=== PATIENT | male | born 1950 | race Caucasian/White ===

== ENCOUNTER → 2020-03-18 08:20 | Outpatient (CLI) | payer MEDICARE, OTHER, SELFPAY ==
[2020-02-21 15:21] VITALS: BMI 23.6
--- NOTE | 2020-03-18 08:55 | CT_ITS ---
STUDY: CT CHEST WITHOUT CONTRAST REASON FOR EXAM: Male, 69 years old. LUNG CRACKLES. RADIATION DOSAGE (If Supplied By Facility): CTDIvol = ( 8.75 ) mGy, DLP = ( 353.07 ) mGycm TECHNIQUE: Transaxial imaging was performed without the administration of intravenous contrast material. Multiplanar coronal and sagittal images were reformatted. Individualized dose optimization techniques were used for this CT. COMPARISON: None. FINDINGS: Mild degree of emphysematous changes more prominent in the upper lobes. Minimal degree of linear scarring in the subpleural regions of the right upper lobe and left upper lobe anteriorly. Minimal linear scarring in the lower There is no demonstrated pleural abnormality. Normal heart and pericardium. Normal mediastinum. Normal hilar regions. Normal unenhanced pulmonary arteries. There is bovine origin of the left common carotid artery arising from the right common carotid artery. This is a normal variant. Normal osseous structures. Cysts are seen in the liver. The largest cyst measures 2.4 cm x 2.3 cm and is in the lateral aspect of the right lobe of the liver. Borderline splenomegaly. CT/Chest without Contrast IMPRESSION: Mild degree of emphysematous changes with mild scarring in the upper and lower lobes as described. Electronically Signed: Adrien Garrett, at 11:06 EDT , Service support ,
== END ==
PROVIDERS: PCP Internal Medicine; Referring Provider Internal Medicine; Visit Provider Internal Medicine
DX: R05 Cough (principal)
CPT/HCPCS: 71250

== ENCOUNTER → 2020-04-09 11:41 | Outpatient (CLI) | payer MEDICARE, OTHER, SELFPAY ==
[2020-02-21 15:21] VITALS: BMI 23.6
[2020-04-09 15:57] LABS: CRP < 2.90 mg/L (0.0-3.0); Rheumatoid Factor < 10.0 IU/mL (<15)
[2020-04-09 16:38] LABS: Erythrocyte Sedimentation Rate < 1 mm/hr (0-20)
[2020-04-11 15:02] LABS: ANTINUCLEAR ANTIBODIES DIRECT Positive (Negative)
== END ==
PROVIDERS: PCP Internal Medicine; Referring Provider Internal Medicine; Visit Provider Internal Medicine
DX: M79.641 Pain in right hand (principal)
CPT/HCPCS: 36415; 85652; 86038; 86140; 86431

== ENCOUNTER → 2022-02-13 | Outpatient (CLI) | payer MEDICARE, OTHER, SELFPAY ==
--- NOTE | 2022-02-13 08:33 | STRESSREP ---
Stress Test Report Date: 02-13-2022 Procedure: Exercise tolerance test/imaging study Indications: Chest pain; CAD; PVCs Consent: Per the patient Procedure: The patient exercised on a Salvador protocol for 9 minutes and 30 seconds completing Stage III and 30 seconds of Stage IV achieving a peak heart rate of 122 bpm (82% predicted maximal heart rate) with a peak blood pressure 158/56 mmHg and a peak MET capacity of 11 METs. The baseline ECG demonstrated sinus bradycardia; first-degree AV block. The peak exercise ECG demonstrated with no obvious ECG changes. There was an occasional PVC and a rare ventricular couplet during exercise and an occasional PVC during recovery. The functional capacity was considered good. There was chest tightness during exercise. The examination was discontinued secondary to chest tightness. Impression: 1. Technically adequate (percent predicted maximal heart rate greater than 85%) exercise tolerance test 2. Peak exercise ECG with no obvious ECG changes 3. There was an occasional PVC and a rare ventricular couplet during exercise and an occasional PVC during recovery 4. Nuclear images pending Myocardial perfusion imaging study: Technique: The patient was injected with 11.2 mCi of technetium 99m Cardiolite and subsequently rest SPECT Cardiolite nuclear imaging was obtained in the horizontal long, vertical long, and short axis views. The patient exercised on a Salvador protocol for 9 minutes and 30 seconds completing Stage III and 30 seconds of Stage IV achieving a peak heart rate of 122 bpm (82% predicted maximal heart rate) with a peak blood pressure 158/56 mmHg and a peak MET capacity of 11 METs. The patient was injected with 33.3 mCi of technetium 99m Cardiolite and subsequently stress SPECT Cardiolite nuclear imaging was obtained in the horizontal long, vertical long, and short axis views. A gated Cardiolite study at peak stress was obtained. Interpretation: Rest and stress SPECT Cardiolite nuclear imaging status post realignment, normalization, and attenuation correction, demonstrates the appearance of relative uniform tracer uptake and myocardial perfusion appearing within normal limits. There is end systolic thickening and brightening. The gated Cardiolite study demonstrates myocardial thickening and inward wall motion. The reported LVEF is 76%. Impression: 1. Rest and stress SPECT Cardiolite nuclear imaging demonstrate relative uniform tracer uptake and myocardial perfusion appearing within normal limits. 2. The gated Cardiolite study reports an LVEF of 76%. This note was generated with [employer] software. It may contain incorrect words, spelling, and punctuation that were not noted in checking the note before signing.
== END | disposition home or self-care (01) ==
LOC: CVS 06:10
PROVIDERS: PCP Internal Medicine; Referring Provider Internal Medicine Cardiovascular Disease; Visit Provider Internal Medicine Cardiovascular Disease
DX: I25.10 Atherosclerotic heart disease of native coronary artery without angina pectoris (principal); I20.8 Other forms of angina pectoris; M25.511 Pain in right shoulder; M25.521 Pain in right elbow
CPT/HCPCS: 78452; 93017; A9500; A4216

== ENCOUNTER 2022-02-25 07:36 | Outpatient (CLI) | payer MEDICARE, OTHER, SELFPAY ==
--- NOTE | 2022-02-25 07:38 | CT_ITS ---
STUDY: CT CHEST WITHOUT CONTRAST REASON FOR EXAM: Male, 71 years old. CHEST PAIN, CAD. OVER READ ONLY RADIATION DOSAGE (If Supplied By Facility): CTDIvol = ( 28.25 ) mGy, DLP = ( 1414.92 ) mGycm TECHNIQUE: Transaxial imaging was performed without the administration of intravenous contrast material. Individualized dose optimization techniques were used for this CT. COMPARISON: No relevant priors. FINDINGS: CHEST Mild degree of dependent atelectasis and/or scarring at the lung bases. Mild degree of emphysematous changes. There is no demonstrated pleural abnormality. Normal heart and pericardium. Normal mediastinum. Normal hilar regions. Normal unenhanced pulmonary arteries. Normal aorta arch and descending thoracic aorta. Normal osseous structures. There is a 3.2 cm x 2.3 cm cyst in the lateral aspect of the right lobe of the liver. CT/Limited Chest CT Cardiac Only IMPRESSION: Mild degree of dependent atelectasis and/or scarring at the lung bases. Hepatic cyst. Electronically Signed: Adrien Garrett MD at 9:53 EDT ,
[2022-02-25 08:00] VITALS: BP 105/68; PULSE 57; RESP 14; O2SAT 100; BMI 24.1
[2022-02-25 08:15] VITALS: BP 105/68; PULSE 57
[2022-02-25] MEDS: Nitroglycerin (INPATIENT USE) 0.4 MG TAB.SUBL SL (08:15)
[2022-02-25 08:20] VITALS: BP 97/62; PULSE 58; RESP 16; O2SAT 99
[2022-02-25 08:26] LABS: CREATININE FINGERSTICK < 0.9 mg/dL (0.70-1.30); EGFR FINGERSTICK > 60.0000 mL/min (>60)
--- NOTE | 2022-02-25 17:21 | CA.SCORE ---
Calcium Scoring Date of Study:: 02/25/22 Indications Indications: Chest pain Coronary Calcium Scoring: High-resolution Computed Tomographic imaging of the chest was performed on 02-25-2022, with particular attention paid to the coronary arteries. Images from the examination were analyzed for the presence and extent of coronary artery calcification , using coronary calcium quantification software. The patient tolerated the procedure well and there were no complications. The results of the coronary calcification analysis are provided below. Findings Coronary Artery Left Main (LM): 0 Left Anterior Descending (LAD): 0 Left Circumflex (LCX): 0 Right Coronary Artery (RCA): 0 Total Agatston Score: 0 Percentile Ranking: According to prepublished reference tables 0% of patients of the same gender and/or similar age had the same and/or lower scores. Calcium Scoring Interpretation: 0 No identifiable atherosclerotic plaque. Very low cardiovascular disease risk. <5% chance of presence coronary artery disease A Negative Examination 1-10 Minimal Plaque burden. Significant coronary artery disease very unlikely. 11-100 Mild plaque burden. Likely mild or minimal coronary atherosclerosis. 101-400 Moderate plaque burden Moderate non-obstructive coronary artery disease highly likely. Over 400 Extensive plaque burden. High likelihood of at least one significant coronary stenosis (>50% diameter) Calcium Score: 0 Negative Examination Conclusion: Continue cardiovascular risk factor evaluation and care as deemed appropriate. This note was generated using a voice recognition system and there may be incorrect words, spelling or punctuation that were not noted when reviewing the office note prior to saving.
--- NOTE | 2022-02-25 17:23 | CCTA.WCONT ---
CCTA w/Cont Coronary Arteries Date of Study:: 02/25/22 Chest pain Consent:: Per patient The patient underwent high-resolution CT imaging of the chest on 02-25-2022 with attention to the coronary arteries. The coronary arteries were analyzed for the presence and extent of coronary artery calcification as well as underlying atherosclerotic coronary artery disease. The patient tolerated the procedure well with no apparent complications. LEFT MAIN CORONARY ARTERY: The left main coronary artery is a large vessel giving rise to the left anterior descending and left circumflex coronary arteries. It appears to be patent and angiographically normal. LEFT ANTERIOR DESCENDING CORONARY ARTERY: The left anterior descending coronary is a large vessel which tapers to a smaller vessel as it courses to the LV apex. There is no angiographically significant appearing disease appreciated. An intramyocardial bridging segment cannot necessarily be excluded. LEFT CIRCUMFLEX CORONARY ARTERY: The left circumflex coronary artery appears to be a large dominant vessel which provides a left PDA system and the left obtuse marginal branching system. The left circumflex coronary artery system appears to be patent and angiographically normal. RIGHT CORONARY ARTERY: The right coronary artery appears to be a small nondominant system. It appears to be patent and angiographically normal. THORACIC AORTA: The thoracic aorta appears to be patent with no obvious atherosclerotic appearing disease. PULMONARY ARTERY: The main pulmonary artery and proximal portions of the right and left pulmonary artery appear to be patent with no obvious filling defect. LEFT ATRIUM/APPENDAGE: The left atrium/appendage appears to be patent with no obvious filling defect. MITRAL VALVE: The mitral valve appears to be a bileaflet structure. AORTIC VALVE: The aortic valve appears to be a trileaflet structure LEFT VENTRICLE: The left ventricle appears to be demonstrate grossly normal left ventricular size, wall motion, and systolic function. The reported LVEF is 66%. CORONARY CALCIUM SCORE: The coronary calcium score was reported as 0. A coronary calcium score of 0 is considered indicative of very low cardiovascular disease risk and less than 5% chance of the presence of underlying atherosclerotic coronary artery disease. This note was generated using a voice recognition system and there may be incorrect words, spelling or punctuation that were not noted when reviewing the office note prior to saving.
== END 2022-02-25 23:59 | disposition home or self-care (01) ==
LOC: CT 07:37
PROVIDERS: PCP Internal Medicine; Referring Provider Internal Medicine Cardiovascular Disease; Visit Provider Internal Medicine Cardiovascular Disease
DX: Z01.812 Encounter for preprocedural laboratory examination (principal); R07.9 Chest pain, unspecified; K76.89 Other specified diseases of liver; R91.8 Other nonspecific abnormal finding of lung field; I25.10 Atherosclerotic heart disease of native coronary artery without angina pectoris; R06.2 Wheezing
CPT/HCPCS: 75571; 75574; 76380; Q9967; A4216

== ENCOUNTER → 2024-04-14 | Outpatient (CLI) | payer MEDICARE, OTHER, SELFPAY ==
--- NOTE | 2024-04-14 13:24 | ECHOD_ITS ---
Reason For Study: ARRHYTHMIA Procedure This was a 2D Doppler, Color Flow transthoracic echocardiogram. Exam performed in department. Left Ventricle Normal LV size. Left ventricular systolic function is normal. The left ventricular ejection fraction is 65 %. Stage 1 diastolic dysfunction. No regional wall motion abnormalities noted. Right Ventricle Normal RV size. Normal systolic function. Atria The left atrium is mildly enlarged. Normal right atrium. Mitral Valve Normal mitral valve. Mild (1+) eccentric mitral valve insufficiency. Tricuspid Valve Normal tricuspid valve. Mild tricuspid valve insufficiency. Aortic Valve Trisinus/trileaflet aortic valve. Trivial aortic valve insufficiency. Pulmonic Valve Normal pulmonic valve. Great Vessels Normal aortic root. The pulmonary artery is normal size. Inferior vena cava collapse with respiration. Pericardium/Pleural No pericardial effusion. MMode/2D Measurements & Calculations LVIDd: 4.8 cm IVSd: 0.98 cm Ao root diam: 3.4 cm LVIDs: 2.7 cm LVPWd: 0.99 cm RVDd: 2.9 cm FS: 43.9 % LAV(MOD-bp): 62.8 ml LVAd ap4: 24.5 cm2 LVAd ap2: 18.0 cm2 LAV(MOD-bp) Indexed: 31.5 ml/m2 LVLd ap4: 7.0 cm LVLd ap2: 7.6 cm LAV(MOD-sp2): 61.3 ml EDV(MOD-sp4): 71.4 ml EDV(MOD-sp2): 37.0 ml LAV(MOD-sp4): 61.1 ml EDV(sp4-el): 73.2 ml EDV(sp2-el): 36.2 ml LVAs ap4: 12.7 cm2 LVAs ap2: 10.4 cm2 LVLs ap4: 5.8 cm LVLs ap2: 6.0 cm ESV(MOD-sp4): 24.5 ml ESV(MOD-sp2): 15.2 ml ESV(sp4-el): 23.4 ml ESV(sp2-el): 15.2 ml EF(MOD-sp4): 65.7 % EF(MOD-sp2): 59.0 % EF(sp4-el): 68.1 % SV(MOD-sp4): 46.9 ml SV(MOD-sp2): 21.9 ml SV(sp4-el): 49.8 ml LA dimension(2D): 4.1 cm LA A4 area: 21.3 cm2 RA A4 area: 22.6 cm2 TAPSE: 2.1 cm Time Measurements MV dec time: 0.27 sec Doppler Measurements & Calculations MV E max jonel: 83.4 cm/sec Lat Peak E' Jonel: 8.8 cm/sec Med Peak E' Jonel: 7.9 cm/sec MV A max jonel: 80.7 cm/sec E/E' lat: 9.5 E/E' med: 10.6 MV E/A: 1.0 MV V2 max: 85.7 cm/sec MV P1/2t max jonel: 82.1 cm/sec Ao V2 max: 107.9 cm/sec MV max P.9 mmHg MV P1/2t: 79.1 msec Ao max P.7 mmHg MV V2 mean: 55.2 cm/sec MV dec slope: 303.9 cm/sec2 Ao V2 mean: 77.2 cm/sec MV mean P.3 mmHg Ao mean P.6 mmHg MV V2 VTI: 32.5 cm MVA(P1/2t): 2.8 cm2 Ao V2 VTI: 26.3 cm AV (velocity ratio): 0.85 AI max jonel: 373.4 cm/sec LV V1 max: 94.1 cm/sec MR max jonel: 486.7 cm/sec AI max P.8 mmHg LV V1 max P.5 mmHg MR max P.7 mmHg AI dec slope: 149.4 cm/sec2 LV V1 mean P.7 mmHg AI P1/2t: 732.0 msec LV V1 mean: 60.4 cm/sec LV V1 VTI: 22.3 cm PA V2 max: 107.5 cm/sec TR max jonel: 189.9 cm/sec PA V2 mean: 68.3 cm/sec TR max P.4 mmHg PA V2 VTI: 24.3 cm ECHO/Echo Complete Interpretation Summary Normal LV size. Left ventricular systolic function is normal. The left ventricular ejection fraction is 65 %. The left atrium is mildly enlarged. Stage 1 diastolic dysfunction. Ordering Physician: Kenny Erazo Referring Physician: Lori Christensen Performed By: Valerie Cheng, RDCS, RVT
== END | disposition home or self-care (01) ==
LOC: CVS 13:22
PROVIDERS: PCP Internal Medicine; Referring Provider Internal Medicine Cardiovascular Disease; Visit Provider Internal Medicine Cardiovascular Disease
DX: I47.29 Other ventricular tachycardia (principal)
CPT/HCPCS: 93306

== ENCOUNTER → 2024-05-01 | Outpatient (CLI) | payer MEDICARE, OTHER, SELFPAY ==
--- NOTE | 2024-05-01 07:49 | MRI_ITS ---
STUDY: MRI BRAIN WITH AND WITHOUT CONTRAST REASON FOR EXAM: Male, 73 years old. Amnesia no head injury,,amnesia last spring for a few hours TECHNIQUE: Standardized multiplanar fat and water weighted pulse sequences were obtained. IV 15ml clariscan was administered for the contrast portion of the examination. COMPARISON: None. FINDINGS: There is mild cerebral atrophy with widening of the extra-axial spaces and ventricular dilatation. There are a limited number of small white matter hyperintensities, distributed throughout the deep white matter tracts of the cerebral hemispheres, consistent with mild chronic white matter ischemic changes. There is no evidence for recent intracranial ischemia or other cause of cytotoxic edema on diffusion weighted imaging (DWI). Normal bilateral frontal poles, and orbital frontal and gyrus recti of the frontal lobes. Normal bilateral temporal tips of the temporal lobes. There are no white matter shear injuries (diffuse axonal injuries). There are no parenchymal hemorrhages or hematomas. There are no findings to suggest prior closed head parenchymal injury of the brain. There are no demyelinating plagues of the supratentorial brain, brainstem or cerebellum. There are no findings suspicious for multiple sclerosis (MS). Normal bilateral basal ganglia. Normal thalami. There is no extra-axial fluid accumulation. Normal flow voids within the major intracranial circulation suggesting patency by spin echo criteria. Normal venous enhancement. There is no enhancing intra-axial or extra-axial abnormality. No extra-axial fluid collections are present. There are no abnormally enhancing lesions of the brain parenchyma. No abnormal thickening or enhancement meninges or dura is demonstrated. No skull lesions are present. Normal sella turcica, pituitary gland, infundibular stalk, optic chiasm and hypothalamus. Normal tectal plate and pineal gland. Normal midbrain, polo and medulla. Normal cerebellum. Normal basal cisterns. Normal bilateral temporal bones. Normal bilateral internal auditory canals. No demonstrated orbital abnormality, within the constraints of a routine brain study. Normal visualized paranasal sinuses. Normal calvarium and skull base. Normal visualized soft tissue structures. Normal visualized upper cervical spine. MRI/Brain W/WO Contrast IMPRESSION: Involutional changes of the brain, as described above. Electronically Signed: Ras Douglas MD at 12:01 EST ,
[2024-05-01 08:22] LABS: CREATININE FINGERSTICK < 1.0 mg/dL (0.70-1.30); EGFR FINGERSTICK > 60.0000 mL/min (>60)
== END | disposition home or self-care (01) ==
PROVIDERS: PCP Internal Medicine; Referring Provider Internal Medicine; Visit Provider Internal Medicine
DX: R41.3 Other amnesia (principal)
CPT/HCPCS: 70553; A9575

== ENCOUNTER 2025-02-10 08:22 | Emergency (ER) | payer MEDICARE, OTHER, SELFPAY ==
[2025-02-10 08:22] VITALS: BP 142/91; PULSE 59; RESP 18; TEMP 36.8; O2SAT 98; BMI 24.7
--- OUTSIDE RECORDS SUMMARY | 2025-02-10 08:57 | XMS RPT_ITS | CCD ---
Author Organization [facility] Care Team Providers Care Rent Collector Name Role Phone Ashish Samuels Unavailable Unavailable Ashish Samuels Unavailable Unavailable Nuris, Netta Unavailable Kevin Messina Unavailable PeabodyIII, Shahab P Unavailable Augusto Parmar Unavailable Gregg Brown Unavailable Manchak, Kimmie Unavailable Unavailable Slarb, Radha Unavailable Unavailable Messenger, Cookie Unavailable Unavailable Fast, Connie A Unavailable Unavailable Unavailable Fast, Connie A Attending Unavailable Fast, Connie A Referring Unavailable Fast, Connie A Consulting Unavailable Fast, Connie A Unavailable Kevin Messina Unavailable PeabodyIII, Shahab P Unavailable Gregg Brown Unavailable Augusto Parmar Unavailable Manchak, Kimmie Unavailable Unavailable Slarb, Radha Unavailable Unavailable Nuris, Netta Unavailable MessengerCookie Unavailable Unavailable Unavailable Unavailable IMTIAZ Shore Unavailable Unavailable Pete III, Shahab P Unavailable [phone] Messenger Cookie Unavailable Unavailable Manchak, Kimmie Unavailable Unavailable IMTIAZ Shore Unavailable Unavailable Gravius, Krista Unavailable Unavailable Unavailable Primary Care Provider Unavailabl e No, Physician Primary Care Provider Unavailabl e FAST, CONNIE JOSE EDUARDO Admitting Unavailable NO, PHYSICIAN Primary Care Unavailable FAST, CONNIE JOSE EDUARDO Referring Unavailable VLAD EAST Attending Unavailable NO, PHYSICIAN Primary Care Unavailable FAST, CONNIE JOSE EDUARDO Admitting Unavailable FAST, CONNIE JOSE EDUARDO Referring Unavailable ROSA BLUM Attending Unavailable NO, PHYSICIAN Primary Care Unavailable WILMA COOLEY Attending Unavailable FAST, CONNIE JOSE EDUARDO Referring Unavailable FAST, CONNIE JOSE EDUARDO Admitting Unavailable NO, PHYSICIAN Primary Care Unavailable FAST, CONNIE JOSE EDUARDO Referring Unavailable FAST, CONNIE JOSE EDUARDO Admitting Unavailable KEVIN CASTORENA Attending Unavailable NAVEEN MAYER Attending Unavailable FAST, CONNIE JOSE EDUARDO Referring Unavailable FAST, CONNIE JOSE EDUARDO Admitting Unavailable NO, PHYSICIAN Primary Care Unavailable NAVEEN MAYER Attending Unavailable NO, PHYSICIAN Primary Care Unavailable FAST, CONNIE JOSE EDUARDO Admitting Unavailable FAST, CONNIE JOSE EDUARDO Referring Unavailable Fast DO, Connie A Unavailable Dr. Kevin Messina Unavailable Shahab Al MD Unavailable Pete LOZOYA MD , Shahab Nix Unavailable Gregg Brown Unavailable Dr. Augusto Parmar Unavailable Manchak AIR INTELLIGENCE SPECIALIST, Kimmie Unavailable Unavailable Slarb STREET LIGHT REPAIRER, Radha Unavailable Unavailable Nataliia RN, Cookie Unavailable Unavailable Silviano STREET LIGHT REPAIRER, IMTIAZ Unavailable Unavailable Unavailable Unavailable Shahab Al MD Unavailable Pete LOZOYA MD , Shahab Nix Unavailable Nuris DO, Netta Unavailable Fast DO, Connie A Unavailable Fermin, Dr. Sandoval Primary Care Provider [phone] Dr. Michael Hdz Attending Provider Dr. Michael Hdz Referring Provider [phone] Dr. Michael Hdz Other Provider Fermin, Dr. Sandoval Referring Provider Unavailable Unavailable Fast, Connie Primary Care Unavailable Kacey, [place] Attending Unavailable Fast, Connie Primary Care Unavailable Kacey, [place] Referring Unavailable Kacey, Kenny Attending Unavailable Fast, Connie Referring Unavailable Fast, Connie Attending Unavailable Fast, Connie Primary Care Unavailable Fast, Connie Primary Care Unavailable Kacey, [place] Attending Unavailable Fast, Connie Referring Unavailable Allergies Allergy Classification Reported Allergen(s) Allergy Type Date of Onset Reaction(s) Facility NEGATED: Highlighted row has been ruled out! (1 source) allergy to substance [facility] Work Phone: NEGATED: Highlighted row has been ruled out! (1 source) drug allergy [facility] Work Phone: Medications Current Medications Medication Drug Class(es) Dates Sig (Normalized) Sig (Original) tamsulosin hydrochloride 0.4 mg oral capsule (20 sources) alpha-Adrenergic Adriana Start: 02-21-2020 take 0.4 mg by mouth once daily Tamsulosin Active 0.4 MG PO DAILY February 21, 2020 3:22pm Start: 02-20-2019 End: 02-21-2020 take 0.8 mg by mouth once daily Tamsulosin Discontinue d 0.8 MG PO DAILY February 20, 2019 12:00am February 21, 2020 3:22pm take 2 capsules by m outh once daily Tamsulosin HCl 0.4 MG Oral Capsule 2 per day (0.4 MG) Active Completed/Discontinued Medications Medication Drug Class(es) Dates Sig (Normalized) Sig (Original) acetaminophen 325 mg oral capsule (20 sources) Start: 06-18-2017 End: 04-04-2018 take 1 capsule by mouth every eight hours as needed Tylenol 325 MG Oral Capsule 1 (one) Capsule q8hrs prn for 0 days Quantity: 30 {Capsule} Refills: 0 Ordered: 04-Apr-2018 Cookie William RN Start : 18-Jun-2017 End : 04-Apr-2018 Inactive amLODIPine 5 mg oral tablet (20 sources) Dihydropyridine Calcium Channel Adriana Start: 07-12-2017 End: 02-19-2022 take 1 tablet by mouth once daily amLODIPine Besylate 5 MG Oral Tablet 1 (one) Tablet Tablet qd for 0 days Quantity: 30 {Tablet} Refills: 1 Ordered: 01-Dec-2019 Fast DO, Connie A Fast DO, Connie A Start : 01-Dec-2019 Active Start: 09-15-2010 End: 11-24-2016 take 1 tablet by mouth once daily Norvasc 5 MG Oral Tablet 1 Tablet qd for 360 days Quantity: 60 {Tablet} Refills: 3 Ordered: 24-Nov-2016 Radha Torres LPN Start : 20-Feb-2014 End : 24-Nov-2016 Discontinued amoxicillin 875 mg / clavulanate 125 mg oral tablet (20 sources) Penicillin-class Antibacterial Start: 05-09-2007 End: 11-24-2007 take 1 tablet by mouth twice daily AUGMENTIN, 875-125MG (Oral Tablet) 1 (one) Tablet Twice daily for 0 days Quantity: 20 {Tablet} Refills: 0 Ordered: 09-May-2007 Cookie William RN Start : 09-May-2007 End : 24-Nov-2007 Inactive ascorbic acid 100 mg chewable tablet (20 sources) End: 11-27-2013 take 1 tablet by mouth once daily VITAMIN C, 100MG (Oral Tablet Chewable) 1 QD for 0 days Refills: 0 Ordered: 27-Nov-2013 Jyoti Gutierrez LPN End : 27-Nov-2013 Inactive aspirin 81 mg delayed release oral tablet (20 sources) Nonsteroidal Anti-inflammatory Drug Start: 09-15-2010 take 1 tablet by mouth once daily ASPIRIN 81 MG TABS One tablet by mouth daily ASPIRIN [id number] Monica Mccord Start: 09-15-2010 take 1 tablet by [facility] once daily ASPIRIN ADULT LOW STRENGTH, 81MG (Oral Tablet Delayed Release) 1 (one) Tablet DR daily for 360 days Quantity: 30 {Tablet} Refills: 3 Ordered: 20-Feb-2014 TyeshaJo murillo Start : 20-Feb-2014 Active azithromycin 250 mg oral tablet (12 sources) Macrolide Antimicrobial Start: 07-14-2021 End: 04-06-2022 Azithromycin 250 MG Oral Tablet 2 (two) Tablet today then 1 qd for 4 days for 0 days Quantity: 6 {Tablet} Refills: 0 Ordered: 06-Apr-2022 Kimmie Gifford CMA Start : 14-Jul-2021 End : 06-Apr-2022 Inactive cephalexin 500 mg oral capsule (20 sources) Cephalosporin Antibacterial Start: 03-21-2019 End: 12-01-2019 take 1 capsule by mouth twice daily Cephalexin 500 MG Oral Capsule 1 (one) Capsule bid for 0 days Quantity: 14 {Capsule} Refills: 0 Ordered: 01-Dec-2019 Radha Torres LPN Start : 21-Mar-2019 End : 01-Dec-2019 Inactive ciprofloxacin 500 mg oral tablet (20 sources) Quinolone Antimicrobial Start: 05-05-2010 End: 08-04-2010 take 1 tablet by mouth twice daily CIPRO, 500MG (Oral Tablet) 1 Tablet bid for 0 days Quantity: 20 {Tablet} Refills: 0 Ordered: 04-Aug-2010 Cookie William RN Start : 05-May-2010 End : 04-Aug-2010 Inactive cyclobenzaprine hydrochloride 10 mg oral tablet (20 sources) Muscle Relaxant Start: 01-02-2013 End: 11-27-2013 take 1 tablet by mouth every eight hours as needed for muscle spasms FLEXERIL, 10MG (Oral Tablet) 1 Tablet Tablet q8hrs prn for muscle spasm relief for 0 days Quantity: 30 {Tablet} Refills: 0 Ordered: 02-Jan-2013 Jyoti Gutierrez LPN Start : 02-Jan-2013 End : 27-Nov-2013 Discontinued Comments: This order discontinued per [facility]. Comment on above: This order discontin ued per [facility]. enalapril maleate 2.5 mg oral tablet (20 sources) Angiotensin Converting Enzyme Inhibitor Start: 01-02-2013 End: 12-28-2013 take 1 tablet by mouth once daily ENALAPRIL MALEATE, 2.5MG (Oral Tablet) 1 Tablet Tablet daily for 360 days Refills: 0 Ordered: 28-Aug-2013 Emili Reece Start : 02-Jan-2013 End : 28-Dec-2013 Inactive famotidine 20 mg oral tablet (4 sources) Histamine-2 Receptor Antagonist Start: 02-28-2014 End: 08-29-2014 take 1 tablet by mouth once daily FAMOTIDINE 20 MG TABS One tablet by mouth daily FAMOTIDINE [id number] Michael Hdz MD finasteride 5 mg oral tablet (20 sources) 5-alpha Reductase Inhibitor Start: 02-20-2019 End: 02-21-2020 take 5 mg by mouth once daily Finasteride Discontinued 5 MG PO DAILY February 20, 2019 12:00am February 21, 2020 3:22pm meloxicam 15 mg oral tablet (20 sources) Nonsteroidal Anti-inflammatory Drug Start: 05-05-2021 End: 04-06-2022 take 1 tablet by mouth once daily at mealtime Meloxicam 15 MG Oral Tablet 1 (one) Tablet qd for 0 days Quantity: 30 {Tablet} Refills: 3 Ordered: 06-Apr-2022 Kimmie Gifford CMA Start : 05-May-2021 End : 06-Apr-2022 Inactive Comments: take with food Start: 11-27-2013 End: 02-12-2014 take 1 tablet by mouth once daily MELOXICAM, 7.5MG (Oral Tablet) 1 (one) Tablet daily for 0 days Quantity: 30 {Tablet} Refills: 0 Ordered: 12-Feb-2014 Jyoti Gutierrez LPN Start : 27-Nov-2013 End : 12-Feb-2014 Discontinued Comment on above: take with food methylPREDNISolone 4 mg oral tablet (20 sources) Corticosteroid Start: 2012 End: 2013 take 1 tablet by mouth at mealtime MEDROL (LAITH), 4MG (Oral Tablet) 1 Tablet Tablet TAD for 0 days Quantity: 1 {Package(s)} Refills: 0 Ordered: 27-Nov-2013 Jyoti Gutierrez LPN Start : 02-Jan-2013 End : 27-Nov-2013 Inactive Comments: take with food Comment on above: take with food metoprolol tartrate 25 mg oral tablet (4 sources) beta-Adrenergic Adriana Start: 2012 End: 2012 take 1 tablet by mouth twice daily METOPROLOL TARTRATE 25 MG TABS One tablet by mouth twice daily METOPROLOL TARTRATE [id number] Michael Hdz MD metroNIDAZOLE 500 mg oral tablet (20 sources) Nitroimidazole Antimicrobial Start: 2009 End: 2010 take 1 tablet by mouth three times daily FLAGYL, 500MG (Oral Tablet) 1 Tablet tid for 0 days Quantity: 30 {Tablet} Refills: 0 Ordered: 04-Aug-2010 Cookie William RN Start : 05-May-2010 End : 04-Aug-2010 Inactive nadolol 20 mg oral tablet (20 sources) beta-Adrenergic Adriana Start: 2012 End: 2016 take 1 tablet by mouth once daily Nadolol 20 MG Oral Tablet 1 Tablet Tablet daily for 0 days Quantity: 30 {Tablet} Refills: 0 Ordered: 24-Nov-2016 Radha Torres LPN Start : 02-Jan-2013 End : 24-Nov-2016 Discontinued nitroglycerin 0.4 mg sublingual tablet (20 sources) Nitrate Vasodilator Start: 2010 End: 2021 Nitroglycerin Discontinued 0.4 MG SL every 5 to 15 minutes February 19, 2022 10:08am February 19, 2022 10:43am predniSONE 10 mg oral tablet (12 sources) Start: 2022 End: 2022 predniSONE 10 mg oral tablet 1 (one) Tablet for 5 days prn itching for 10 days Quantity: 10 {Tablet} Refills: 0 Ordered: 18-Nov-2022 Start : 18-Nov-2022 End : 18-Nov-2022 Discontinued Start: 07-14-2021 End: 04-06-2022 predniSONE 10 MG Oral Tablet 3 (three) Tablet pills for 3 days 2 pills for 3 days 1 pill for 3 days with food for 0 days Quantity: 18 {Tablet} Refills: 0 Ordered: 06-Apr-2022 Kimmie Gifford CMA Start : 14-Jul-2021 End : 06-Apr-2022 Inactive propranolol hydrochloride 60 mg oral tablet (20 sources) beta-Adrenergic Adriana Start: 03-06-2020 take 1 tablet by mouth once daily Propranolol HCl 60 MG Oral Tablet 1 (one) Tablet qd for 0 days Quantity: 30 {Tablet} Refills: 0 Ordered: 06-Mar-2020 Diana Cisneros MD Start : 06-Mar-2020 Active Start: 07-12-2017 End: 02-19-2022 take 1 capsule by mouth once daily Propranolol (Inderal La) 60 mg capsule,extended release 24 hr Active 60 MG PO daily February 19, 2022 10:09am Start: 06-18-2016 take 1 capsule by mo [facility] once daily INDERAL LA 60 MG [id number] One capsule by mouth daily PROPRANOLOL HCL [id number] Michael Hdz MD rofecoxib 25 mg oral tablet (20 sources) End: 05-09-2007 take 1 tablet by mouth once daily as needed VIOXX, 25MG (Oral Tablet) 1 QD, PRN for 0 days Refills: 0 Ordered: 09-May-2007 Cookie William RN End : 09-May-2007 Inactive tadalafil 5 mg oral tablet (8 sources) Phosphodiesterase 5 Inhibitor Start: 04-05-2023 take 1 tablet by mouth once daily tadalafiL 5 mg oral tablet 1 (one) Tablet qd for 0 days Quantity: 30 {Tablet} Refills: 3 Ordered: 05-Apr-2023 Fast DO, Connie A Fast DO, Connie A Start : 05-Apr-2023 Active Start: 03-29-2023 take 1 tablet by zac th once daily tadalafiL 5 mg oral tablet 1 (one) Tablet qd for 0 days Quantity: 30 {Tablet} Refills: 3 Ordered: 29-Mar-2023 Fast DO, Connie A Fast DO, Connie A Start : 29-Mar-2023 Active Start: 04-06-2022 take 1 tablet by zac th once daily Tadalafil 5 MG Oral Tablet 1 (one) Tablet qd for 0 days Quantity: 30 {Tablet} Refills: 3 Ordered: 06-Apr-2022 Fast DO, Connie A Fast DO, Connie A Start : 06-Apr-2022 Active valACYclovir 1000 mg oral tablet (20 sources) Herpesvirus Nucleoside Analog DNA Polymerase Inhibitor, Herpes Simplex Virus Nucleoside Analog DNA Polymerase Inhibitor, Herpes Zoster Virus Nucleoside Analog DNA Polymerase Inhibitor Start: 08-04-2010 End: 08-11-2010 take 1 tablet by mouth three times daily VALTREX, 1GM (Oral Tablet) 1 Tablet tid for 7 days Quantity: 21 {Tablet} Refills: 0 Ordered: 04-Aug-2010 Netta Lawler DO Start : 04-Aug-2010 End : 11-Aug-2010 Inactive Problems Active Problems Problem Classification Problem Date Documented Da te Episodic/Chronic Abdominal hernia (20 sources) Left inguinal hernia ; Translations: [Left inguinal hernia] 12-01-2019 Episodic Abdominal pain (20 sources) Acute abdominal pain; Translations: [Abdominal pain, acute, right upper quadrant] Resolved: 6 04-03-2016 Episodic Administrative/social admission (1 source) Medical examinations/reports status; Translations: [Physical exam WITHOUT abnormal findings (Renamed from Encounter for routine adult health examination without abnormal findings)] 04-08-2018 Episodic Asthma (20 sources) Asthma; Translations: [Asthma] Resolved: 8 04-04-2018 Chronic Comment on above: as long as stable an d not able to give inhalers with nadolol, would have pt call prn and get prednisone worsening asthma Cardiac dysrhythmias (20 sources) Paroxysmal ventricular tachycardia; Translations: [Ventricular premature beats] Onset: 1 09-15-2012 Chronic Comment on above: had heart cath 2010 - had kink and will get these records - no stent also saw eps specialist - no defibrillator- just saw cardio december 2017 dr hdz just had stress test and follwoup with cardio- stable just saw cardio shira le Cardiac dysrhythmias (20 sources) Palpitations; Translations: [Palpitations] Resolved: 9 04-08-2018 Episodic Cardiac dysrhythmias (20 sources) Cardiac dysrhythmias Chronic obstructive pulmonary disease and bronchiectasis (20 sources) Chronic obstructive lung disease; Translations: [COPD (chronic obstructive pulmonary disease)] Resolved: 4 04-03-2016 Chronic Comment on above: discussed an inhaler use- at this point he doesnt feel needs but discussed sx to watch for Conditions associated with dizziness or vertigo (20 sources) Dizziness; Translations: [Dizziness and giddiness] Resolved: 9 05-13-2015 Episodic Comment on above: better Conduction disorders (20 sources) Conduction disorder of the heart; Translations: [Cardiac dysrhythmia] 04-08-2018 Chronic Comment on above: dr hdz Coronary atherosclerosis and other heart disease (20 sources) Coronary arteriosclerosis; Translations: [Coronary artery disease] Onset: 1 09-15-2010 Chronic Comment on above: chronic stable-jess nue present regimen Disorders of lipid metabolism (2 sources) Hyperlipidemia; Translations: [Hyperlipidemia, unspecified] Onset: 3 06-30-2012 Chronic Diverticulosis and diverticulitis (20 sources) Diverticulitis of gastrointestinal tract; Translations: [Diverticulitis] 04-08-2018 Chronic Esophageal disorders (20 sources) Gastroesophageal reflux disease; Translations: [GERD (gastroesophageal reflux disease)] 04-08-2018 Chronic Comment on above: no symptoms or dysph augustus chronic stable-jess nue present regimen Gastrointestinal hemorrhage (20 sources) Blood in stool; Translations: [Melena] Resolved: 7 04-04-2018 Episodic Comment on above: Anoscope performed b y Dr. Mikel Lawler-No internal inflammed/bleeding hemorrhoids. Headache; including migraine (20 sources) Headache; Translations: [Headache] Resolved: 1 03-06-2020 Episodic Comment on above: unusual sx check blo od flow better Hemorrhoids (20 sources) External hemorrhoids; Translations: [Hemorrhoids] Resolved: 9 04-08-2018 Episodic Hyperplasia of prostate (20 sources) Benign prostatic hypertrophy without outflow obstruction; Translations: [Benign prostatic hypertrophy with outflow obstruction] 04-08-2018 Chronic Comment on above: integrative approach wanted so will look up std process for mhim -- he wakes severasl times a nite he sees urologist in [place] so will followup there- try flomax at night for nighttime sx better with flomax a t night discussed how to use meds timing side effects and avoid with nitro Immunizations and screening for infectious disease (20 sources) Need for prophylactic vaccination and inoculation against influenza; Translations: [Raised antinuclear antibody] 04-12-2020 Episodic Comment on above: chronic stable-jess nue present regimen Neoplasms of unspecified nature or uncertain behavior (20 sources) Neoplasm of uncertain behavior of skin; Translations: [Neoplasm of uncertain behavior of skin] Resolved: 3 04-08-2018 Episodic Comment on above: no new lesions he martinez s followup with derm Nonspecific chest pain (20 sources) Chest pain, unspecified; Translations: [Precordial pain] Onset: 1 Resolved: 7 09-15-2010 Episodic Comment on above: with inspiration mid chest dull pain sees Dr. Hdz ? lung related to COPD vs otherdid not use his nitro Other and unspecified benign neoplasm (20 sources) Lipoma of other specified sites; Translations: [Lipoma (clinical)] Episodic Other and unspecified benign neoplasm (20 sources) Lipoma of back; Translations: [Lipoma of back] Resolved: 8 04-04-2018 Episodic Comment on above: has had for years, h e will check his insurance reg surgeon Other circulatory disease (20 sources) Electrocardiogram abnormal; Translations: [Abnormal result of cardiovascular function study, unspecified] Onset: 1 Resolved: 8 09-15-2010 Episodic Other connective tissue disease (20 sources) Pain in right hand; Translations: [Right hand pain] Resolved: 3 03-11-2021 Episodic Other ear and sense organ disorders (20 sources) Impacted cerumen; Translations: [Impacted cerumen] Resolved: 9 12-27-2018 Episodic Other gastrointestinal disorders (20 sources) Constipation; Translations: [Constipation] Resolved: 9 04-08-2018 Episodic Other hematologic conditions (20 sources) Patient encounter status; Translations: [Other specified abnormalities of plasma proteins] 04-01-2021 Episodic Other injuries and conditions due to external causes (20 sources) Muscle strain; Translations: [Pulled muscle] Resolved: 6 04-03-2016 Episodic Other lower respiratory disease (20 sources) Rib pain; Translations: [Rib pain on right side] Resolved: 8 04-04-2018 Episodic Comment on above: ? injury from crawli ng under a trailer Other lower respiratory disease (20 sources) Breathing painful; Translations: [Inspiratory pain] Resolved: 0 04-08-2018 Episodic Other lower respiratory disease (20 sources) Cough; Translations: [Cough] Resolved: 1 03-06-2020 Episodic Comment on above: likely need high res ct -has had chemical exposure at work Other male genital disorders (20 sources) Impotence; Translations: [Male erectile dysfunction, unspecified] 12-14-2018 Chronic Comment on above: hernandez - has followu p with urology -psa stable Other non-traumatic joint disorders (20 sources) Shoulder pain; Translations: [Right shoulder pain] Resolved: 9 12-27-2018 Episodic Other non-traumatic joint disorders (6 sources) Pain in left knee; Translations: [Pain in left knee] Onset: 1 Episodic Other non-traumatic joint disorders (20 sources) Joint pain; Translations: [Pain in unspecified joint (Renamed from Arthralgia)] 04-01-2021 Episodic Comment on above: joints in general be tter Other non-traumatic joint disorders (20 sources) Knee pain; Translations: [Pain in left knee] Episodic Comment on above: better with meloxica m he wants to monitor for now Other non-traumatic joint disorders (2 sources) Pain radiating to right shoulder; Translations: [Pain in right shoulder] Episodic Other non-traumatic joint disorders (2 sources) Pain in elbow; Translations: [Pain in right elbow] Episodic Other non-traumatic joint disorders (16 sources) Pain in right shoulder; Translations: [Right shoulder pain] Resolved: 9 03-24-2019 Episodic Other nutritional; endocrine; and metabolic disorders (20 sources) Overweight in adulthood with body mass index of 25 or more but less than 30; Translations: [BMI 25.0-25.9,adult] Resolved: 0 12-01-2019 Episodic Other skin disorders (20 sources) Sebaceous cyst; Translations: [Sebaceous cyst of skin] Episodic Other skin disorders (20 sources) Cyst of skin; Translations: [Cyst of skin] 03-11-2021 Episodic Residual codes; unclassified (20 sources) Memory impairment; Translations: [Memory impairment] 04-08-2018 Episodic Comment on above: declined rx - gave h d and diet educ of cognitive preservation he seems to be stabl e here willmmonitor Residual codes; unclassified (20 sources) Vaccination required; Translations: [Vaccine for owgehihwji-otcwpet-grf tussis with poliomyelitis] 04-04-2018 Episodic Residual codes; unclassified (20 sources) H/O Spinal surgery; Translations: [Laminectomy] 04-08-2018 Episodic Comment on above: 1981 Residual codes; unclassified (20 sources) Body mass index (BMI) 24.0-24.9, adult; Translations: [Body mass index 20-24 - normal] Resolved: 2 04-08-2018 Episodic Residual codes; unclassified (20 sources) Needs influenza immunization; Translations: [Need for prophylactic vaccination and inoculation against influenza] 04-08-2018 Episodic Residual codes; unclassified (20 sources) Non-smoker; Translations: [Nonsmoker] 04-01-2021 Episodic Residual codes; unclassified (1 source) Other amnesia; Translations: [Other amnesia] Onset: 4 Episodic Skin and subcutaneous tissue infections (20 sources) Paronychia of finger; Translations: [Paronychia, finger] 03-23-2019 Episodic Comment on above: soak in epsom Spondylosis; intervertebral disc disorders; other back problems (20 sources) Low back pain; Translations: [Backache] Resolved: 6 04-03-2016 Episodic Comment on above: Chronic Superficial injury; contusion (20 sources) Subungual hematoma, hand; Translations: [Subungual hematoma, fingernail] 03-23-2019 Episodic Comment on above: he dosnt feel it nee ds drained will monitor Syncope (6 sources) Syncope and collapse; Translations: [Syncope and collapse] Onset: 1 09-15-2010 Episodic Unclassified (9 sources) FH: Hypertension; Translations: [Body mass index (BMI) 24.0-24.9, adult] 03-13-2015 Episodic Comment on above: declined rx - gave h d and diet educ of cognitive preservation 1979 Unclassified (20 sources) Blood chemistry abnormal; Translations: [Thyroid hormone tests abnormal] Resolved: 3 04-03-2016 Episodic Comment on above: repeat normal will m onitor scope 2017- jab norm al - declined cologard at this time Unclassified (20 sources) BPH without urinary obstruction Unclassified (20 sources) lumps- Resolved: 9 04-03-2016 Comment on above: reassurance as no ch kayode in 5 years- if change call for bx Unclassified (20 sources) Unclassified (20 sources) Nonsmoker; Translations: [Non-smoker] 04-08-2018 Unclassified (20 sources) BMI 25.0-25.9,adult Unclassified (20 sources) Abnormal EKG(794.31) Unclassified (20 sources) SCREENING FOR CANCER OF THE PROSTATE (V76.44) Unclassified (20 sources) BPH without Urin. Obst (600.00) Unclassified (20 sources) NHVI WELLNESS EXAM 12-14-2018 Unclassified (20 sources) BPH with urinary obstruction Unclassified (20 sources) BMI 23.0-23.9, adult Unclassified (20 sources) Right hand pain Unclassified (20 sources) Abnormal TSH Unclassified (1 source) Other ventricular tachycardia; Translations: [Other ventricular tachycardia] Onset: 4 Viral infection (20 sources) Herpes zoster; Translations: [Shingles] Resolved: 6 04-03-2016 Episodic Past or Other Problems Problem Classification Problem Date Documented Da te Episodic/Chronic Asthma (20 sources) Asthma Gastrointestinal hemorrhage (20 sources) Blood-tinged feces; Translations: [Blood in stool] Resolved: 06-18-2017 04-04-2018 Comment on above: Anoscope performed b y Dr. Mikel Lawler-No internal inflammed/bleeding hemorrhoids. Influenza (20 sources) Influenza Other and unspecified benign neoplasm (20 sources) Lipoma (clinical); Translations: [Lipoma of other specified sites] Resolved: 04-03-2016 04-03-2016 Episodic Other connective tissue disease (10 sources) Pain in right hand; Translations: [Right hand pain] 03-06-2020 Other nutritional; endocrine; and metabolic disorders (20 sources) Body mass index 25-29 - overweight; Translations: [BMI 25.0-25.9,adult] Resolved: 12-01-2019 04-08-2018 Chronic Other nutritional; endocrine; and metabolic disorders (3 sources) Body mass index 25-29 - overweight; Translations: [BMI 25.0-25.9,adult] Resolved: 12-01-2019 12-01-2019 Episodic Other skin disorders (1 source) Epidermoid cyst of skin; Translations: [Sebaceous cyst] Resolved: 12-12-2008 04-03-2016 Episodic Comment on above: infected Other skin disorders (18 sources) Sebaceous cyst; Translations: [Sebaceous cyst of skin] Resolved: 12-12-2008 04-03-2016 Episodic Comment on above: infected Unclassified (20 sources) Body mass index (BMI) 24.0-24.9, adult Unclassified (20 sources) POISON JUDITH Resolved: 12-12-2008 04-03-2016 Unclassified (20 sources) Patient encounter status; Translations: [Encounter for screening for lipid disorder] 04-08-2018 Unclassified (20 sources) Screening status; Translations: [Screening for prostate cancer] 04-08-2018 Comment on above: scope 2017- jab norm al - declined cologard at this time Unclassified (20 sources) Unspecified Diagnosis 04-08-2018 Unclassified (20 sources) External hemorrhoid Unclassified (1 source) Requires vaccination; Translations: [Vaccine for jxrhltewfi-mswsnqe-u ertussis with poliomyelitis] 04-04-2018 Unclassified (20 sources) Suture removal Resolved: 12-12-2008 04-03-2016 Unclassified (20 sources) Physical exam WITHOUT abnormal findings (Renamed from Encounter for routine adult health examination without abnormal findings) Unclassified (20 sources) Encounter for screening for malignant neoplasm of colon (Renamed from Special screening for malignant neoplasms, colon) Unclassified (20 sources) Inspiratory pain Unclassified (20 sources) Pulled muscle Unclassified (20 sources) Abdominal Pain,RUQ(789.01) Unclassified (20 sources) PREVENTION OF TETANUS (V03.7) Unclassified (20 sources) Well Male Exam (V70.0) Unclassified (20 sources) Shingles (053.9) Unclassified (20 sources) Abnormal blood chemistry (790.6) Unclassified (20 sources) fatty lipoma Unclassified (20 sources) SYMPTOMS INVOLVING CARDIOVASCULAR SYSTEM; PALPITATIONS (785.1) Unclassified (20 sources) Encounter for annual general medical examination with abnormal findings in adult Unclassified (20 sources) Rib pain on right side Unclassified (20 sources) Non-smoker; Translations: [Nonsmoker] 04-08-2018 Unclassified (20 sources) Encounter for screening for lipid disorder Unclassified (20 sources) Screening for prostate cancer Unclassified (20 sources) Body mass index 20-24 - normal; Translations: [Body mass index (BMI) 24.0-24.9, adult] Resolved: 03-06-2020 12-27-2018 Unclassified (20 sources) Sebaceous cyst of skin; Translations: [Sebaceous cyst] Resolved: 12-12-2008 04-03-2016 Comment on above: infected Unclassified (20 sources) Right shoulder pain Unclassified (19 sources) Paronychia, finger Unclassified (19 sources) Subungual hematoma, fingernail Unclassified (20 sources) screen Resolved: 03-06-2020 12-01-2019 Unclassified (16 sources) BMI 24.0-24.9, adult Unclassified (12 sources) Elevated antinuclear antibody (MARLYN) level Unclassified (3 sources) Screening PSA (prostate specific antigen) Unclassified (3 sources) Need for pneumococcal vaccination Results Test Name Value Interpretation Reference Range Facility Brain W/WO Contraston 2023 Brain W/WO Contrast [facility] Imaging Services [address] [place] [address] Brain W/WO Contrast MR#: [id number] Acct: [id number] Name: ADRIAN TORY Rep #: [id number] : 1950 M 73 From: Ras allen MD PCP: Dr. Connie Wilson DO Status: REG CLI Study: Brain W/WO Contrast Date of Exam: 05/01/24 Exam# [id number] Ordering Dr: [place] [id number] STUDY: MRI BRAIN WITH AND WITHOUT CONTRAST REASON FOR EXAM: Male, 73 years old. Amnesia no head injury,,amnesia last spring for a few hours TECHNIQUE: Standardized multiplanar fat and water weighted pulse sequences were obtained. IV 15ml clariscan was administered for the contrast portion of the examination. COMPARISON: None. FINDINGS: There is mild cerebral atrophy with widening of the extra-axial spaces and ventricular dilatation. There are a limited number of small white matter hyperintensities, distributed throughout the deep white matter tracts of the cerebral hemispheres, consistent with mild chronic white matter ischemic changes. There is no evidence for recent intracranial ischemia or other cause of cytotoxic edema on diffusion weighted imaging (DWI). Normal bilateral frontal poles, and orbital frontal and gyrus recti of the frontal lobes. Normal bilateral temporal tips of the temporal lobes. There are no white matter shear injuries (diffuse axonal injuries). There are no parenchymal hemorrhages or hematomas. There are no findings to suggest prior closed head parenchymal injury of the brain. There are no demyelinating plagues of the supratentorial brain, brainstem or cerebellum. There are no findings suspicious for multiple sclerosis (MS). Normal bilateral basal ganglia. Normal thalami. There is no extra-axial fluid accumulation. Normal flow voids within the major intracranial circulation suggesting patency by spin echo criteria. Normal venous enhancement. There is no enhancing intra-axial or extra-axial abnormality. No extra-axial fluid collections are present. There are no abnormally enhancing lesions of the brain parenchyma. No abnormal thickening or enhancement meninges or dura is demonstrated. No skull lesions are present. Normal sella turcica, pituitary gland, infundibular stalk, optic chiasm and hypothalamus. Normal tectal plate and pineal gland. Normal midbrain, polo and medulla. Normal cerebellum. Normal basal cisterns. Normal bilateral temporal bones. Normal bilateral internal auditory canals. No demonstrated orbital abnormality, within the constraints of a routine brain study. Normal visualized paranasal sinuses. Normal calvarium and skull base. Normal visualized soft tissue structures. Normal visualized upper cervical spine. MRI/Brain W/WO Contrast IMPRESSION: Involutional changes of the brain, as described above. Electronically Signed: Ras Douglas MD at 12:01 EST Reading Location ID and State: [facility] / [place] , Service support , CC: Dr. Connie Wilson DO Rn Clinical Quality: Signed Normal [facility] CREATININE FINGERSTICKon CREATININE WB < 1.0 Normal 0.70-1.30 [facility] Comment on above: Performed By: #### L 9100.0200 #### [facility] [address] [place], [place], [address] EGFR WB > 60.0000 Normal >60 [facility] Comment on above: Performed By: #### L 9100.0200 #### [facility] [address] [place], [address] Echo Completeon 04-14-2024 Echo [facility] Cardiovascular Services [address] [place] [address] Echo Complete 04/14/24 1334 MR#: [id number] Acct: [id number] Name: ADRIAN TROY Rep #: [id number] : 1950 73 From: Kenny Erazo MD Attending Dr: Dr. Kenny Erazo MD Status: REG Gladis CHRISTOPHER Ordering Dr: Kenny Erazo MD Date: 04/14/24 Location: [facility] Sex: M C Admitted: Reason For Study: ARRHYTHMIA Procedure This was a 2D Doppler, Color Flow transthoracic echocardiogram. Exam performed in department. Left Ventricle Normal LV size. Left ventricular systolic function is normal. The left ventricular ejection fraction is 65 %. Stage 1 diastolic dysfunction. No regional wall motion abnormalities noted. Right Ventricle Normal RV size. Normal systolic function. Atria The left atrium is mildly enlarged. Normal right atrium. Mitral Valve Normal mitral valve. Mild (1+) eccentric mitral valve insufficiency. Tricuspid Valve Normal tricuspid valve. Mild tricuspid valve insufficiency. Aortic Valve Trisinus/trileaflet aortic valve. Trivial aortic valve insufficiency. Pulmonic Valve Normal pulmonic valve. Great Vessels Normal aortic root. The pulmonary artery is normal size. Inferior vena cava collapse with respiration. Pericardium/Pleural No pericardial effusion. MMode/2D Measurements Calculations LVIDd: 4.8 cm IVSd: 0.98 cm Ao root diam: 3.4 cm LVIDs: 2.7 cm LVPWd: 0.99 cm RVDd: 2.9 cm FS: 43.9 % LAV(MOD-bp): 62.8 ml LVAd ap4: 24.5 cm2 LVAd ap2: 18.0 cm2 LAV(MOD-bp) Indexed: 31.5 ml/m2 LVLd ap4: 7.0 cm LVLd ap2: 7.6 cm LAV(MOD-sp2): 61.3 ml EDV(MOD-sp4): 71.4 ml EDV(MOD-sp2): 37.0 ml LAV(MOD-sp4): 61.1 ml EDV(sp4-el): 73.2 ml EDV(sp2-el): 36.2 ml LVAs ap4: 12.7 cm2 LVAs ap2: 10.4 cm2 LVLs ap4: 5.8 cm LVLs ap2: 6.0 cm ESV(MOD-sp4): 24.5 ml ESV(MOD-sp2): 15.2 ml ESV(sp4-el): 23.4 ml ESV(sp2-el): 15.2 ml EF(MOD-sp4): 65.7 % EF(MOD-sp2): 59.0 % EF(sp4-el): 68.1 % SV(MOD-sp4): 46.9 ml SV(MOD-sp2): 21.9 ml SV(sp4-el): 49.8 ml LA dimension(2D): 4.1 cm LA A4 area: 21.3 cm2 RA A4 area: 22.6 cm2 TAPSE: 2.1 cm Time Measurements MV dec time: 0.27 sec Doppler Measurements Calculations MV E max ana maría: 83.4 cm/sec Lat Peak E' Ana María: 8.8 cm/sec Med Peak E' Ana María: 7.9 cm/sec MV A max ana maría: 80.7 cm/sec E/E' lat: 9.5 E/E' med: 10.6 MV E/A: 1.0 MV V2 max: 85.7 cm/sec MV P1/2t max ana maría: 82.1 cm/sec Ao V2 max: 107.9 cm/sec MV max P.9 mmHg MV P1/2t: 79.1 msec Ao max P.7 mmHg MV V2 mean: 55.2 cm/sec MV dec slope: 303.9 cm/sec2 Ao V2 mean: 77.2 cm/sec MV mean P.3 mmHg Ao mean P.6 mmHg MV V2 VTI: 32.5 cm MVA(P1/2t): 2.8 cm2 Ao V2 VTI: 26.3 cm AV (velocity ratio): 0.85 AI max ana maría: 373.4 cm/sec LV V1 max: 94.1 cm/sec MR max ana maría: 486.7 cm/sec AI max P.8 mmHg LV V1 max P.5 mmHg MR max P.7 mmHg AI dec slope: 149.4 cm/sec2 LV V1 mean P.7 mmHg AI P1/2t: 732.0 msec LV V1 mean: 60.4 cm/sec LV V1 VTI: 22.3 cm PA V2 max: 107.5 cm/sec TR max ana maría: 189.9 cm/sec PA V2 mean: 68.3 cm/sec TR max P.4 mmHg PA V2 VTI: 24.3 cm ECHO/Echo Complete Interpretation Summary Normal LV size. Left ventricular systolic function is normal. The left ventricular ejection fraction is 65 %. The left atrium is mildly enlarged. Stage 1 diastolic dysfunction. Ordering Physician: Kenny Erazo Referring Physician: Connie Wilson Performed By: Valerie Cheng, RDCS, RVT 04/17/241901 Date Kenny Erazo MD CC: Dr. Kenny Erazo MD; Dr. Connie Wilson DO Date Dictated: 04/14/24 1334 Date Transcribed: 04/17/241901 Rn Clinical Quality: Signed Normal [facility] Cardiology Visit Reporton Cardiology Visit Report [facility] [address] [place] [address]. [address] [place] [address] OFFICE VISIT Date of Service: 04/06/24 MR#: [id number] Acct: [id number] Name: ADRIAN TROY Rep #: [id number] : 1950 Provider: Dr. Kenny Erazo MD Age/Sex: 73/M [place] [facility] [place]: Signed HPI HPI History of Present Illness Details: This is a 73-year-old white male who presents today for outpatient cardiovascular follow-up visit. He has a history of premature ventricular complexes but no significant obstructive coronary disease. He did have a coronary CT angiogram performed in January 2022 demonstrating a calcium score of 0 and essentially no coronary disease. From a cardiac standpoint, the patient is doing well. He denies any palpitations, chest pain, pressure or heaviness. He denies SOB, Orthopnea, and PND. He does not have bleeding issues; no blood in urine, stool or nosebleeds. He denies any decrease in energy level, myalgias, or claudication. He does not have edema, or sudden weight gain. He denies dizziness, lightheadedness, syncopal or near syncopal episodes, and headaches. Intake Vital Signs 03/24/23 08:57 04/06/24 10:48 Height 5 ft 11 in 5 ft 11 in Weight: 175 lb BMI 24.4 BP 96/62 Blood Pressure Location Lt brachial Position Sitting Respiration 16 Pulse 60 Pulse Source Monitor Intake Visit Reasons: 1 Y FU/PREV PFM Pharmacy Helper Required: No Accompanied by: Self Is patient in pain?: No Allergies No Known Allergies Allergy (Verified 04/06/24 10:51) Medications ???Medication ???Instructions ???Recorded ???Confirmed ???Type aspirin 81 mg tablet,delayed 81 mg PO QDAY 07/12/17 04/06/24 History release tamsulosin 0.4 mg capsule 0.4 mg PO DAILY 02/21/20 04/06/24 History nitroglycerin 0.4 mg sublingual 0.4 mg sublingual Q5-15M PRN chest 03/24/23 04/06/24 Rx tablet pain #25 tabs propranolol 60 mg capsule,24 60 mg PO QDAY #90 caps 04/06/24 04/06/24 Rx hr,extended release (Inderal [place]) Have you fallen in the past year?: Yes [facility] Medical History GI bleed COPD (chronic obstructive pulmonary disease) BPH (benign prostatic hyperplasia) Atherosclerotic heart disease of [place] coronary artery without angina pectoris Premature ventricular contraction Syncope and collapse Nonspecific abnormal cardiovascular system function study Abnormal EKG Chest pain Hyperlipidemia Paroxysmal ventricular tachycardia Surgical History S/P left inguinal hernia repair History of appendectomy History of tonsillectomy History of back surgery Family History Mother CAD (coronary artery disease) Brother CAD (coronary artery disease) Hx of CABG Sister Hypertension Social History Smoking Status: Never smoker alcohol intake: current substance use type: does not use ROS Const Const: Negative for fatigue, weakness, headache(s), daytime sleepiness or difficulty sleeping ENT ENT: Negative for headache(s), dizziness or Nosebleed/epistaxis Cardio Chest Pain: No Palpitations: No Edema: None Resp Respiratory: Negative for SOB with activity, SOB at rest, SOB orthopnea SOB lying down or Cough GI GI: Negative nausea, vomiting or heartburn Neuro Neuro: Negative for dizziness, lightheadedness, near syncope, headache(s) or weakness Endo Endo: Negative for fatigue Cardiology Exam Const Appearance: cooperative, healthy appearing, comfortable, no acute distress, well developed and well groomed Nutritional Appearance: average body habitus Orientation: alert, awake and oriented x3 Head Head: normal to inspection, normocephalic and atraumatic Ears: hearing grossly normal bilaterally Nose: external nose normal Face and Sinus: face symmetric Eyes Eyelids: eyelids normal Conjunctivae: conjunctivae normal Pupils: PERRL EOM: EOM intact bilaterally Neck Neck: normal visual inspection and full ROM Carotids: normal carotid upstroke Chest Chest inspection: normal inspection of the chest, symmetric chest movement and normal respiratory effort Auscultation: Bilateral: Clear to Auscultation Cardio Palpation: normal PMI Rate: bradycardic Rhythm: regular rhythm Heart sounds: S1 normal and S2 normal GI GI: normal to inspection and soft Neuro General: patient alert and patient oriented x3 Skin Skin: no rashes or lesions noted Extremities Pulses: Normal: Right Radial Pulse and Left Radial Pulse Lower Extremity Edema: None: Bilateral Psych Psychological: normal affect Supplemental Info Supplemental Information Echocardiogram: 05-21-10 Interpretation Summary Left srinivas (more content not included)... Normal [facility] CBC, PLATELETS & MANUAL DIFF ([id number])Ordered By: [employer] on 03-18-2023 Basophils (Bld) [#/Vol] 0.1 10*3/uL Normal 0.0-0.2 [facility]; [facility] Work Phone: Comment on above: PATIENT WAS FASTINGP ERFORMED BY: LabcoJFK Johnson Rehabilitation InstituteYfcuoq5842 [facility] [id number] Basophils/100 WBC (Bld) 1 % Normal [facility]; [facility] Work Phone: Comment on above: PATIENT WAS FASTINGP ERFORMED BY: [facility] Aeiymo7595 [address] RoadDublin [place] [id number] Eosinophils (Bld) [#/Vol] 0.1 10*3/uL Normal 0.0-0.4 [facility]; [facility] Work Phone: Comment on above: PATIENT WAS FASTINGP ERFORMED BY: [facility] Hphpaz3045 [address] RoadDublin [place] [id number] Eosinophils/100 WBC (Bld) 2 % Normal [facility]; [facility] Work Phone: Comment on above: PATIENT WAS FASTINGP ERFORMED BY: [facility] Tbgckk3674 [address] RoadDublin [place] [id number] Erythrocyte distribution width (RBC) [Ratio] 12.3 % Normal 11.6-15.4 [facility]; [facility] Work Phone: Comment on above: PATIENT WAS FASTINGP ERFORMED BY: [facility] Opoete2214 Jenkins RoadAtrium Healthin [place] [id number] Hematocrit (Bld) [Volume fraction] 46.1 % Normal 37.5-51.0 [facility]; [facility] Work Phone: Comment on above: PATIENT WAS FASTINGP ERFORMED BY: [facility] Lbwnon4802 Jenkins Roadblin [place] [id number] Hemoglobin (Bld) [Mass/Vol] 15.8 g/dL Normal 13.0-17.7 [facility]; [facility] Work Phone: Comment on above: PATIENT WAS FASTINGP ERFORMED BY: [facility] Oftzwh9878 [address] RoadDublin [place] [id number] Immature granulocytes (Bld) [#/Vol] 0.0 10*3/uL Normal 0.0-0.1 [facility]; [facility] Work Phone: Comment on above: PATIENT WAS FASTINGP ERFORMED BY: [facility] Pgatfg2793 [address] RoadDublin [place] [id number] Immature granulocytes/100 WBC (Bld) 0 % Normal [facility]; [facility] Work Phone: Comment on above: PATIENT WAS FASTINGP ERFORMED BY: [facility] Appazh8134 [address] RoadDublin [place] [id number] Lymphocytes (Bld) [#/Vol] 0.8 10*3/uL Normal 0.7-3.1 [facility]; [facility] Work Phone: Comment on above: PATIENT WAS FASTINGP ERFORMED BY: [facility] Fynijy0756 [address] RoadDublin [place] [id number] Lymphocytes/100 WBC (Bld) 14 % Normal [facility]; [facility] Work Phone: Comment on above: PATIENT WAS FASTINGP ERFORMED BY: [facility] Gepkuu2723 [address] Roadblin [place] [id number] MCH (RBC) [Entitic mass] 32.4 pg Normal 26.6-33.0 [facility]; [facility] Work Phone: Comment on above: PATIENT WAS FASTINGP ERFORMED BY: [facility] Tkdhdu4920 [address] RoadDublin [place] [id number] MCHC (RBC) [Mass/Vol] 34.3 g/dL Normal 31.5-35.7 [facility]; [facility] Work Phone: Comment on above: PATIENT WAS FASTINGP ERFORMED BY: [facility] Pyeuen[address] Sturgis HospitalDublin [place] [id number] MCV (RBC) [Entitic vol] 95 fL Normal 79-97 [facility]; [facility] Work Phone: Comment on above: PATIENT WAS FASTINGP ERFORMED BY: [facility] Dihxyb8775 [address] RoadDublin [place] [id number] Monocytes (Bld) [#/Vol] 0.6 10*3/uL Normal 0.1-0.9 [facility]; [facility] Work Phone: Comment on above: PATIENT WAS FASTINGP ERFORMED BY: [facility] Dycxzy6220 [address] RoadDublin [place] [id number] Monocytes/100 WBC (Bld) 11 % Normal [facility]; [facility] Work Phone: Comment on above: PATIENT WAS FASTINGP ERFORMED BY: DEBBIE [facility] Olpzmw4590 [address] RoadDublin [place] [id number] Neutrophils (Bld) [#/Vol] 4.0 10*3/uL Normal 1.4-7.0 [facility]; [facility] Work Phone: Comment on above: PATIENT WAS FASTINGP ERFORMED BY: DEBBIE [facility] Yfxygd6742 [address] RoadDublin [place] [id number] Neutrophils/100 WBC (Bld) 72 % Normal [facility]; [facility] Work Phone: Comment on above: PATIENT WAS FASTINGP ERFORMED BY: DEBBIE [facility] Rkdswf5313 [address] RoadDublin [place] [id number] Platelets (Bld) [#/Vol] 207 10*3/uL Normal 150-450 [facility]; [facility] Work Phone: Comment on above: PATIENT WAS FASTINGP ERFORMED BY: DEBBIE [facility] Bhrlih5720 [address] RoadDublin [place] [id number] RBC (Bld) [#/Vol] 4.87 10*6/uL Normal 4.14-5.80 [facility] Internal [facility]; [facility] Work Phone: Comment on above: PATIENT WAS FASTINGP ERFORMED BY: DEBBIE [facility] Iodzqj6467 [address] RoadDublin [place] [id number] WBC (Bld) [#/Vol] 5.5 10*3/uL Normal 3.4-10.8 [facility]; [facility] Work Phone: Comment on above: PATIENT WAS FASTINGP ERFORMED BY: DEBBIE [facility] Ssctgj3377 [address] RoadDublin [place] [id number] METABOLIC PANEL, COMPREHENSI VE ([id number])Ordered By: [employer] on 03-18-2023 Albumin [Mass/Vol] 4.7 g/dL Normal 3.8-4.8 [facility]; [facility] Work Phone: Comment on above: PATIENT WAS FASTINGP ERFORMED BY: DEBBIE [facility] Soaeht8560 [address] RoadDublin [place] [id number] Albumin/Globulin [Mass ratio] 2.5 {ratio} Abnormal 1.2-2.2 [facility]; [facility] Work Phone: Comment on above: PATIENT WAS FASTINGP ERFORMED BY: DEBBIE [facility] Pjnsli4076 [address] RoadDublin [place] [id number] ALP [Catalytic activity/Vol] 87 U/L Normal 44-121 [facility]; [facility] Work Phone: Comment on above: PATIENT WAS FASTINGP ERFORMED BY: DEBBIE [facility] Zedfdg7080 [address] RoadDublin [place] [id number] ALT [Catalytic activity/Vol] 15 U/L Normal 0-44 [facility]; [facility] Work Phone: Comment on above: PATIENT WAS FASTINGP ERFORMED BY: DEBBIE [facility] Dpsuug2985 [address] RoadDublin [place] [id number] AST [Catalytic activity/Vol] 19 U/L Normal 0-40 [facility]; [facility] Work Phone: Comment on above: PATIENT WAS FASTINGP ERFORMED BY: DEBBIE Aparicio Iunwei2892 [address] Roadblin [place] [id number] Bilirubin [Mass/Vol] 0.9 mg/dL Normal 0.0-1.2 [facility] rehensive Internal Medicine; [facility] Work Phone: Comment on above: PATIENT WAS FASTINGP ERFORMED BY: DEBBIE [facility] Achxhs3175 [address] RoadDublin [place] [id number] Calcium [Mass/Vol] 9.9 mg/dL Normal 8.6-10.2 [facility] Internal [facility]; [facility] Work Phone: Comment on above: PATIENT WAS FASTINGP ERFORMED BY: DEBBIE [facility] Xjpdnw6613 [address] RoadDublin [place] [id number] Chloride [Moles/Vol] 99 mmol/L Normal 96-106 Comp rehensive [facility] Medicine; [facility] Work Phone: Comment on above: PATIENT WAS FASTINGP ERFORMED BY: CB [facility] [id number] [address]Dublin [place] [id number] CO2 [Moles/Vol] 29 mmol/L Normal 20-29 [facility]; [facility] Work Phone: Comment on above: PATIENT WAS FASTINGP ERFORMED BY: CB [facility] Epzvbw4636 [address] RoadDublin [place] [id number] Creatinine [Mass/Vol] 1.17 mg/dL Normal 0.76-1.27 [facility]; [facility] Work Phone: Comment on above: PATIENT WAS FASTINGP ERFORMED BY: [facility] Avscbt0135 [address] RoadDublin [place] [id number] GFR/1.73 sq M.predicted among non-blacks MDRD (S/P/Bld) [Vol rate/Area] 66 mL/min/{1.73_m2} Normal Comprehensiv e Internal [facility]; [facility] Work Phone: Comment on above: PATIENT WAS FASTINGP ERFORMED BY: [facility] Cfhmcp4572 Jenkins RoadDublin [place] [id number] Globulin (S) [Mass/Vol] 1.9 g/dL Normal 1.5-4.5 [facility]; [facility] Work Phone: Comment on above: PATIENT WAS FASTINGP ERFORMED BY: CB [facility] Jnhpeq7665 Jenkins RoadDublin [place] [id number] Glucose [Mass/Vol] 95 mg/dL Normal 70-99 [facility]; [facility] Work Phone: Comment on above: PATIENT WAS FASTINGP ERFORMED BY: CB [facility] Kuvszv4496 [address] RoadDublin [place] [id number] Potassium [Moles/Vol] 5.1 mmol/L Normal 3.5-5.2 [facility]; [facility] Work Phone: Comment on above: PATIENT WAS FASTINGP ERFORMED BY: CB [facility] Ldjfeb2011 [address] RoadDublin [place] [id number] Protein [Mass/Vol] 6.6 g/dL Normal 6.0-8.5 Compre hensive [facility] Medicine; [facility] Work Phone: Comment on above: PATIENT WAS FASTINGP ERFORMED BY: DEBBIE Labcojean pierre BradshawXydsie9140 [address] RoadDublin [place] [id number] Sodium [Moles/Vol] 137 mmol/L Normal 134-144 [facility]; [facility] Work Phone: Comment on above: PATIENT WAS FASTINGP ERFORMED BY: DEBBIE [facility] Bslzek3867 Jenkins RoadAtrium Healthin [place] [id number] Urea nitrogen [Mass/Vol] 21 mg/dL Normal 8-27 [facility]; [facility] Work Phone: Comment on above: PATIENT WAS FASTINGP ERFORMED BY: DEBBIE Labpiotr BradshawKbfdsi3718 [address] Roadblin [place] [id number] Urea nitrogen/Creatinine [Mass ratio] 18 mg/mg Normal 10-24 [facility]; [facility] Work Phone: Comment on above: PATIENT WAS FASTINGP ERFORMED BY: DEBBIE [facility] Vbzygk0037 Jenkins RoadAtrium Healthin [place] [id number] MARLYN (ANTINUCLEAR ANTIBODY) ( [id number])Ordered By: [employer] on 04-06-2022 Nuclear Ab Ql (S) Positive Abnormal Compreh ensive [facility] Medicine; [facility] Work Phone: Comment on above: PATIENT NOT FASTINGP ERFORMED BY: DEBBIE [facility] Ceepyc8084 [address] [facility]in [place] [id number] C-REACTIVE PROTEIN ([id number])Or dered By: [employer] on 04-06-2022 CRP [Mass/Vol] 2 mg/L Normal 0-10 Comprehens vane [facility] Medicine; [facility] Work Phone: Comment on above: PATIENT NOT FASTINGP ERFORMED BY: DEBBIE [facility] Bfowac57[address] [facility] [place] [id number] IMMUNOFIXATION, SERUM ([id number] )Ordered By: [employer] on 04-06-2022 IgA [Mass/Vol] 85 mg/dL Normal 61-437 Comprehens vane [facility]; [facility] Work Phone: Comment on above: PATIENT NOT FASTINGP ERFORMED BY: DEBBIE [facility] Qyxefo8403 [address] KivraAtrium Healthin [place] [id number] IgG [Mass/Vol] 900 mg/dL Normal 603-1613 Comprehens vane [facility]; [facility] Work Phone: Comment on above: PATIENT NOT FASTINGP ERFORMED BY: [facility] Cgyhvg7759 [address] [facility] [id number] IgM [Mass/Vol] 77 mg/dL Normal 15-143 Comprehens vane [facility] Medicine; [facility] Work Phone: Comment on above: PATIENT NOT FASTINGP ERFORMED BY: DEBBIE [facility] Ekfafv6948 [address] [facility] [id number] Protein Fractions [Interp] UPEIP Normal [facility]; [facility] Work Phone: Comment on above: No monoclonality det ected. PATIENT NOT FASTINGP ERFORMED BY: DEBBIE [facility] Gtmsiv5824 [address] [facility] [id number] SED RATE ERYTHROCYTE ([id number]) Ordered By: [employer] on 04-06-2022 ESR (Bld) [Velocity] 2 mm/h Normal 0-30 [facility] Internal Medicine; [facility] Work Phone: Comment on above: PATIENT NOT FASTINGP ERFORMED BY: DEBBIE [facility] Ytzhmi8753 [facility] [id number] Serum Free Light Chains ([id number] 83)Ordered By: [employer] on 04-06-2022 Immunoglobulin light chains.kappa.free (S) [Mass/Vol] 22.7 mg/L Abnormal 3.3-19.4 [facility]; [facility] Work Phone: Comment on above: PATIENT NOT FASTINGP ERFORMED BY: [facility] Boutlp5687 [address] [facility] [id number] Immunoglobulin light chains.lambda.free [Mass/Vol] 11.1 mg/L Normal 5.7-26.3 [facility]; [facility] Work Phone: Comment on above: PATIENT NOT FASTINGP ERFORMED BY: [place] Bmcmtc2217 [address] KivraCone [facility] [id number] Serum Free Light Chains (29704) 2.05 1 Abnormal 0.26-1.65 [facility]; [facility] Work Phone: Comment on above: PATIENT NOT FASTINGP ERFORMED BY: [place] Nctixx4420 [address] [facility] [id number] dsDNA ANTIBODY by IFA, Crith idia Luciliae, with Reflex to Titer ([id number])Ordered By: [employer] on 04-06-2022 dsDNA ANTIBODY by IFA, Crithidia Luciliae, with Reflex to Titer (12090) Negative Normal [facility]; [facility] Work Phone: Comment on above: PATIENT NOT FASTINGP ERFORMED BY: Battlepro6370 [address] KivraCone Health [facility] C[facility] Hospital [id number] urine immunofixation ([id number]) Ordered By: [employer] on 04-06-2022 Interpretation Immunofixation (U) [Interp] UPEIP Normal [facility]; [facility] Work Phone: Comment on above: No monoclonality det ected. PATIENT NOT FASTINGP ERFORMED BY: Battlepro6370 [facility] [id number] PSA (PROSTATE SPECIFIC ANTIG EN) ([id number])Ordered By: [employer] on 03-31-2022 Prostate specific Ag [Mass/Vol] 3.5 ng/mL Normal 0.0-4.0 [facility]; [facility] Work Phone: Comment on above: [employer] ECLIA methodol ogy. .According to the [place] [employer], Serum PSA shoulddecrease and remain at undetectable levels after radicalprostatectomy. The AUA defines biochemical recurrence as an initialPSA value 0.2 ng/mL or greater followed by a subsequent confirmatoryPSA value 0.2 ng/mL or greater.Values obtained with different assay methods or kits cannot be usedinterchangeably. Results cannot be interpreted as absolute evidenceof the presence or absence of malignant disease. PATIENT NOT FASTINGP ERFORMED BY: Battlepro6370 [facility] [id number] Information: NURSE DRAW Basophil percentageon 2021 Basophil percentage < 0.9 mg/dL 0.70-1.30 [facility] Work Phone: No Panel Informationon 02-25 Bedside Estimated GFR (eGFR) > 60.0000 mL/min >60 [facility] Work Phone: CBC, PLATELETS & MANUAL DIFF ([id number])Ordered By: [employer] on 03-11-2021 Basophils (Bld) [#/Vol] 0.1 10*3/uL Normal 0.0-0.2 [facility]; [facility] Work Phone: Comment on above: PATIENT WAS FASTINGP ERFORMED BY: DEBBIE LabDiavibeJFK Johnson Rehabilitation InstituteRgcgaf7294 [facility] [id number] Basophils/100 WBC (Bld) 1 % Normal [facility]; [facility] Work Phone: Comment on above: PATIENT WAS FASTINGP ERFORMED BY: DEBBIE LabDiavibe Uwdpgl1945 [facility] [id number] Eosinophils (Bld) [#/Vol] 0.1 10*3/uL Normal 0.0-0.4 [facility]; [facility] Work Phone: Comment on above: PATIENT WAS FASTINGP ERFORMED BY: DEBBIE LabDiaviberp Fwonzc2754 [facility] [id number] Eosinophils/100 WBC (Bld) 2 % Normal [facility]; [facility] Work Phone: Comment on above: PATIENT WAS FASTINGP ERFORMED BY: DEBBIE LabDiavibe Qlvwno0270 [facility] [id number] Erythrocyte distribution width (RBC) [Ratio] 12.0 % Normal 11.6-15.4 [facility]; [facility] Work Phone: Comment on above: PATIENT WAS FASTINGP ERFORMED BY: LabCoJFK Johnson Rehabilitation InstituteYilhsr2905 [facility] [id number] Hematocrit (Bld) [Volume fraction] 45.5 % Normal 37.5-51.0 [facility]; [facility] Work Phone: Comment on above: PATIENT WAS FASTINGP ERFORMED BY: DEBBIE LabCojean pierre EdenKebobu5196 [address] [facility]in [place] [id number] Hemoglobin (Bld) [Mass/Vol] 15.6 g/dL Normal 13.0-17.7 [facility]; [facility] Work Phone: Comment on above: PATIENT WAS FASTINGP ERFORMED BY: [facility] Wgvxhq0934 Jenkins RoadDublin [place] [id number] Immature granulocytes (Bld) [#/Vol] 0.0 10*3/uL Normal 0.0-0.1 [facility]; [facility] Work Phone: Comment on above: PATIENT WAS FASTINGP ERFORMED BY: [facility] Wtinmq3697 Jenkins RoadCone Health [facility] C[facility] [id number] Immature granulocytes/100 WBC (Bld) 0 % Normal [facility]; [facility] Work Phone: Comment on above: PATIENT WAS FASTINGP ERFORMED BY: [facility] Tfnitb8205 [address] [facility] [id number] Lymphocytes (Bld) [#/Vol] 0.7 10*3/uL Normal 0.7-3.1 [facility]; [facility] Work Phone: Comment on above: PATIENT WAS FASTINGP ERFORMED BY: [facility] Iguyiy5922 [address] [facility]in [place] [id number] Lymphocytes/100 WBC (Bld) 14 % Normal [facility]; [facility] Work Phone: Comment on above: PATIENT WAS FASTINGP ERFORMED BY: [facility] Ipyqmt8299 Jenkins RoadDublin [place] [id number] MCH (RBC) [Entitic mass] 32.4 pg Normal 26.6-33.0 [facility]; [facility] Work Phone: Comment on above: PATIENT WAS FASTINGP ERFORMED BY: [facility] Flqfxy5358 Jenkins RoadDublin [place] [id number] MCHC (RBC) [Mass/Vol] 34.3 g/dL Normal 31.5-35.7 [facility]; [facility] Work Phone: Comment on above: PATIENT WAS FASTINGP ERFORMED BY: CB [facility] Ldzimd0145 Jenkins RoadDublin [place] [id number] MCV (RBC) [Entitic vol] 95 fL Normal 79-97 [facility]; [facility] Work Phone: Comment on above: PATIENT WAS FASTINGP ERFORMED BY: CB [facility] Pfuven6962 [address] RoadDublin [place] [id number] Monocytes (Bld) [#/Vol] 0.5 10*3/uL Normal 0.1-0.9 [facility]; [facility] Work Phone: Comment on above: PATIENT WAS FASTINGP ERFORMED BY: DEBBIE [facility] Bdtkch3240 [address] RoadDublin [place] [id number] Monocytes/100 WBC (Bld) 9 % Normal [facility]; [facility] Work Phone: Comment on above: PATIENT WAS FASTINGP ERFORMED BY: CB [facility] Ijzazv8709 [address] RoadDublin [place] [id number] Neutrophils (Bld) [#/Vol] 3.8 10*3/uL Normal 1.4-7.0 [facility]; [facility] Work Phone: Comment on above: PATIENT WAS FASTINGP ERFORMED BY: CB [facility] Xnvghc1505 [address] RoadDublin [place] [id number] Neutrophils/100 WBC (Bld) 74 % Normal [facility]; [facility] Work Phone: Comment on above: PATIENT WAS FASTINGP ERFORMED BY: CB [facility] Ntoqbe1190 [address] RoadDublin [place] [id number] Platelets (Bld) [#/Vol] 227 10*3/uL Normal 150-450 [facility]; [facility] Work Phone: Comment on above: PATIENT WAS FASTINGP ERFORMED BY: CB [facility] Dgmbht1164 [address] RoadDublin [place] [id number] RBC (Bld) [#/Vol] 4.81 10*6/uL Normal 4.14-5.80 [facility] Internal Medicine; [facility] Work Phone: Comment on above: PATIENT WAS FASTINGP ERFORMED BY: DEBBIE [facility] Rhedgl4024 [address] RoadDublin [place] [id number] WBC (Bld) [#/Vol] 5.2 10*3/uL Normal 3.4-10.8 [facility] Internal Medicine; [facility] Work Phone: Comment on above: PATIENT WAS FASTINGP ERFORMED BY: CB [facility] Idmyla2402 [address] RoadDublin [place] [id number] METABOLIC PANEL, COMPREHENSI VE ([id number])Ordered By: [employer] on 03-11-2021 Albumin [Mass/Vol] 4.4 g/dL Normal 3.7-4.7 [facility] Internal [facility]; [facility] Work Phone: Comment on above: PATIENT WAS FASTINGP ERFORMED BY: DEBBIE [facility] Ypnxbj9817 [address] RoadDublin [place] [id number] Albumin/Globulin [Mass ratio] 2.0 {ratio} Normal 1.2-2.2 [facility]; [facility] Work Phone: Comment on above: PATIENT WAS FASTINGP ERFORMED BY: [facility] Xmzqcq0416 [address] RoadDublin [place] [id number] ALP [Catalytic activity/Vol] 85 U/L Normal 44-121 [facility]; [facility] Work Phone: Comment on above: Please note refere nce interval change PATIENT WAS FASTINGP ERFORMED BY: CB [facility] Bahams6674 [address] RoadDublin [place] [id number] ALT [Catalytic activity/Vol] 10 U/L Normal 0-44 [facility]; [facility] Work Phone: Comment on above: PATIENT WAS FASTINGP ERFORMED BY: CB [facility] Zhxigk2389 [address] RoadDublin [place] [id number] AST [Catalytic activity/Vol] 14 U/L Normal 0-40 [facility]; [facility] Work Phone: Comment on above: PATIENT WAS FASTINGP ERFORMED BY: [facility] Khcebc0276 Jenkins RoadDublin [place] [id number] Bilirubin [Mass/Vol] 1.2 mg/dL Normal 0.0-1.2 Comp rehensive Internal Medicine; [facility] Work Phone: Comment on above: PATIENT WAS FASTINGP ERFORMED BY: [facility] Iuhmyr7355 [address] RoadDublin [place] [id number] Calcium [Mass/Vol] 9.2 mg/dL Normal 8.6-10.2 [facility] Internal Medicine; [facility] Work Phone: Comment on above: PATIENT WAS FASTINGP ERFORMED BY: [facility] Irhnoe5475 [address] RoadDublin [place] [id number] Chloride [Moles/Vol] 102 mmol/L Normal 96-106 Comp [facility] hospitalensive [facility]; [facility] Work Phone: Comment on above: PATIENT WAS FASTINGP ERFORMED BY: [facility] Eipqnc1966 [address] RoadDublin [place] [id number] CO2 [Moles/Vol] 25 mmol/L Normal 20-29 [facility] Internal Medicine; [facility] Work Phone: Comment on above: PATIENT WAS FASTINGP ERFORMED BY: [facility] Ibbcji5892 [address] RoadDublin [place] [id number] Creatinine [Mass/Vol] 1.08 mg/dL Normal 0.76-1.27 [facility]; [facility] Work Phone: Comment on above: PATIENT WAS FASTINGP ERFORMED BY: [facility] Gpyqdb4260 [address] RoadDublin [place] [id number] GFR/1.73 sq M.predicted among blacks CKD-EPI (S/P/Bld) [Vol rate/Area] 79 mL/min/1.73 Normal [facility]; [facility] Work Phone: Comment on above: [facility] currently [facility] eGFR in compliance with the current recommendations of the National Kidney Foundation. [facility] will update reporting as new guidelines are published from the NKF-ASN Task force. PATIENT WAS FASTINGP ERFORMED BY: [facility]6370 [facility]in [place] [id number] GFR/1.73 sq M.predicted among non-blacks CKD-EPI (S/P/Bld) [Vol rate/Area] 69 mL/min/1.73 Normal [facility]; [facility] Work Phone: Comment on above: PATIENT WAS FASTINGP ERFORMED BY: [facility]6370 [facility] [id number] Globulin (S) [Mass/Vol] 2.2 g/dL Normal 1.5-4.5 [facility]; [facility] Work Phone: Comment on above: PATIENT WAS FASTINGP ERFORMED BY: [facility]6370 [facility] [id number] Glucose [Mass/Vol] 97 mg/dL Normal 65-99 [facility] Internal [facility]; [facility] Work Phone: Comment on above: PATIENT WAS FASTINGP ERFORMED BY: [facility]6370 [facility] [id number] Potassium [Moles/Vol] 4.6 mmol/L Normal 3.5-5.2 [facility]; [facility] Work Phone: Comment on above: PATIENT WAS FASTINGP ERFORMED BY: [facility]6370 [facility] [id number] Protein [Mass/Vol] 6.6 g/dL Normal 6.0-8.5 [facility] Internal [facility]; [facility] Work Phone: Comment on above: PATIENT WAS FASTINGP ERFORMED BY: [facility] Kggnto5005 [address] [facility] Hospitalblin [place] [id number] Sodium [Moles/Vol] 138 mmol/L Normal 134-144 [facility]; [facility] Work Phone: Comment on above: PATIENT WAS FASTINGP ERFORMED BY: [facility]allin6370 [facility] [id number] Urea nitrogen [Mass/Vol] 19 mg/dL Normal 8-27 [facility]; [facility] Work Phone: Comment on above: PATIENT WAS FASTINGP ERFORMED BY: [employer] Xvrxeo5236 [facility] [id number] Urea nitrogen/Creatinine [Mass ratio] 18 mg/mg Normal 10-24 [facility]; [facility] Work Phone: Comment on above: PATIENT WAS FASTINGP ERFORMED BY: [employer] Systemslin6370 [facility] [id number] PSA (PROSTATE SPECIFIC ANTIG EN) ([id number])Ordered By: [employer] on 03-11-2021 Prostate specific Ag [Mass/Vol] 3.2 ng/mL Normal 0.0-4.0 [facility]; [facility] Work Phone: Comment on above: [employer] ECLIA methodol ogy. .According to the [place] [employer], Serum PSA shoulddecrease and remain at undetectable levels after radicalprostatectomy. The AUA defines biochemical recurrence as an initialPSA value 0.2 ng/mL or greater followed by a subsequent confirmatoryPSA value 0.2 ng/mL or greater.Values obtained with different assay methods or kits cannot be usedinterchangeably. Results cannot be interpreted as absolute evidenceof the presence or absence of malignant disease. PATIENT WAS FASTINGP ERFORMED BY: [employer] Mktmrs4644 [facility] [id number] Joey 02-18-2021 CNOV Office Visit (GENSWS ) ADRIAN TROY ([id number]) 1950 M Date Time Provider Department 02/18/21 3:00 PM SARAY ANGEL During your visit today, we recorded the following information about you: Temperature Pulse Blood pressure Weight 97.7 degrees 67/minute 110/60 78.1 kg Saray Angel PA-C 02/18/2021 3:10 PM Addendum -OK to return to normal activities as tolerated -OK to shower-no soaking incision in pool or hot tub for another 2 weeks -May remove the steri-strips in 5 days if they have not fallen off by that time -If any worsening swelling, tightness at incision site, or signs of infection return to our office immediately. Otherwise, follow up as needed Saray Angel PA-C 02/18/2021 5:31 PM Signed FOLLOW UP VISIT - SKIN LESION NAME: Adrian Britton [facility] NO.: [id number] DATE OF SERVICE: 02/18/2021 : 1950 REFERRING PHYSICIAN: Connie Wilson, Adrian is a patient I am following for a mass on his back. Dr. Freeman performed an excision of this skin lesion on 02/13/21. The patient notes no complaints since the procedure. The patient returns today for wound check and suture removal. The pathology returned as: FINAL DIAGNOSIS A. ?Skin, upper back, excision - Angiolipoma. MP/SA/christian 02/17/2021 VITALS: Blood pressure 110/60, pulse 67, temperature 36.5 ?C (97.7 ?F), weight 78.1 kg (172 lb 3.2 oz), SpO2 99 %. On examination, the skin incision is healing well with no signs of infection or inflammation. +very small seroma noted Assessment IMPRESSION: Status post excision of angiolipoma, healing well PLAN: If the patient notes any problems or signs of wound infections, the patient should contact me immediately. -OK to return to normal activities as tolerated -OK to shower-no soaking incision in pool or hot tub for another 2 weeks -May remove the steri-strips in 5 days if they have not fallen off by that time -If any worsening swelling, tightness at incision site, or signs of infection return to our office immediately. Otherwise, follow up as needed Diagnoses: (D17.9) Angiolipoma (primary encounter diagnosis) Return to Clinic: The patient is instructed to follow-up with me as needed. 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 - tamsulosin (FLOMAX) 0.4 mg Take 0.4 mg by mouth once daily. - amLODIPine (NORVASC) 5 mg tablet Take 1 tablet by mouth once daily. - aspirin, enteric coated (ECOTRIN LOW STRENGTH) 81 mg EC tablet Take 1 tablet by mouth once daily. - nitroglycerin sublingual 0.4 mg SL tablet Dissolve 1 tablet under the tongue as needed for Chest Pain. If no pain relief call 911. Problem List As Of Date 02/18/2021 Noted Resolved PVC (premature ventricular contraction) [I49.3] 09/15/2012 Other instructions from your clinician: -OK to return to normal activities as tolerated -OK to shower-no soaking incision in pool or hot tub for another 2 weeks -May remove the steri-strips in 5 days if they have not fallen off by that time -If any worsening swelling, tightness at incision site, or signs of infection return to our office immediately. Otherwise, follow up as needed Medications Discontinued During This Encounter Prescriptions - metoprolol tartrate, short acting, 25 mg tablet (Discontinued) Take 1 tablet by mouth twice daily. Encounter Status:Closed by SARAY ANGEL on 02/18/21 [facility] Joey 02-13-2021 CNOV Office Visit (GENSWS ) ADRIAN TROY ([id number]) 1950 M Date Time Provider Department 02/13/21 2:10 PM SHAHAB FREEMAN During your visit today, we recorded the following information about you: Erika Forbes RN 02/13/2021 3:27 PM Signed UNIVERSAL PROTOCOL / SAFETY CHECKLIST Procedure to be Performed: Excision of subcutaneous lesion to back. Sign In: A Moment of CARE was completed. Personnel directly involved with the procedure wore the appropriate PPE (Personal Protective Equipment). No special equipment needed. Patient/Surrogate Stated/Verified: PATIENT VERIFIED(optional for EMERGENT procedures): Patient name, Date of , Relevant allergies and The intended procedure Time Out Communication: Intended patient and procedure match the source documents. Consent documented and matches the intended procedure. Correct side/site marked and visible. Medications required for procedure verified. No fire risk assessment and interventions applicable. No implant(s) inserted. Sign Out: SIGN OUT (optional for EMERGENT procedures): All specimen containers correctly labeled. No instruments, equipment or retained foreign bodies applicable. Post-procedure follow-up management communicated and Plan of Care Visit completed when applicable. TRISTA Arevalo III, MD 02/13/2021 3:27 PM Signed Preoperative diagnosis: 7 cm subcutaneous lesion to back Postoperative diagnosis: The same Procedure: Excision of a 7 cm subcutaneous lesion of back Surgical Pete Procedure: Mid back more on the right side was sterilely prepped draped in usual fashion. 1% lidocaine plain was injected. 8 cm incision was made. I dissected down removed this fatty lesion in its entirety and sent to pathology for permanent sectioning. I used electrocautery for getting the stasis. I brought the wound together with deep dermal stitches of 3-0 Vicryl. Sterile dressings were applied. Patient tolerated procedure well. Erika Frobes RN 02/13/2021 3:15 PM Signed The following instructions are important for you related to your office visit today with the [facility] General Surgeons. Instructions After SKIN EXCISION-SUTURES You can remove the dressing in two days. If the dressing becomes soaked or had significant drainage, the dressing should be changed. If there is minor bleeding from this skin edge, you should hold pressure on the incision until the bleeding stops. If there is continued bleeding, you should contact our office immediately. You do not need to leave a dressing on the wound after two days. If the wound shows signs of redness, inflammation, or purulent drainage, you should contact our office immediately. You should keep the wound dry for the first two days. After that time, you may wash the wound with gentle soap and water. The wound should not be immersed in a pool, bathtub, or even hot tub. We prefer to check the incision in our office when ready. Please make an appointment to return to our office in 7 days. If you note any additional difficulties, questions, or concerns, you should contact our office immediately @ [phone] and ask to be transferred to the General Surgery department. Referring Provider: SELF [[id number]] Allergies As of Date: 02/13/2021 (No Known Allergies) Date Reviewed: 02/13/2021 Reviewed by: Erika Forbes RN - Fully Assessed Reason for Visit: Follow Up [171] Cmt: remove mass on back Primary Visit Diagnosis:Lesion of subcutaneous tissue [L98.9] Order(s):SURGICAL PATHOLOGY [8541487] Order #: [id number] Prescriptions as of 02/13/2021 - propranolol (INDERAL) 60 mg tablet Take 60 mg by mouth three times daily. - tamsulosin (FLOMAX) 0.4 mg Take 0.4 mg by mouth once daily. - amLODIPine (NORVASC) 5 mg tablet Take 1 tablet by mouth once daily. - aspirin, enteric coated (ECOTRIN LOW STRENGTH) 81 mg EC tablet Take 1 tablet by mouth once daily. - metoprolol tartrate, short acting, 25 mg tablet Take 1 tablet by mouth twice daily. - nitroglycerin sublingual 0.4 mg SL tablet Dissolve 1 tablet under the tongue as needed for Chest Pain. If no pain relief call 911. Problem List As Of Date 02/13/2021 Noted Resolved PVC (premature ventricular contraction) [I49.3] 09/15/2012 Other instructions from your clinician: The following instructions are important for you related to your office visit today with the [facility] General Surgeons. Instructions After SKIN EXCISION-SUTURES You can remove the dressing in two days. If the dressing becomes soaked or had significant drainage, the dressing should be changed. If there is minor bleeding from this skin edge, you should hold pressure on the incision until the bleeding stops. If there is continued bleeding, you should contact our office immediately. You do not need to leave a dr (more content not included)... Normal [facility] SURGICAL PATHOLOGYon 021 SURGICAL PATHOLOGY Specimen originated from [place] Specimen #: [id number] Submitting Physician: SHAHAB FREEMAN ([id number]) FINAL DIAGNOSIS A. Skin, upper back, excision - Angiolipoma. MP/SA/christian 02/17/2021 Rissa Tan M.D. (Electronic Signature) SPECIMEN SUBMITTED A: SKIN, UPPER BACK, EXCISION CLINICAL DATA SUBCUTANEOUS LESION TO BACK GROSS DESCRIPTION A. Received in formalin labeled skin, upper back, excision are two irregularly shaped pieces of moore-yellow lobulated adipose tissue with no skin grossly identified that range from 3.5 x 2.1 x 0.7 to 8.4 x 6.1 x 3.2 cm. The specimen is serially sectioned to reveal moore-yellow and homogeneous cut surfaces with no areas of hemorrhage, induration, nodularity, or necrosis. Squeegee Finisher sections from both pieces are submitted in formalin in cassette A1. ALEXY/germaine 02/14/2021 Gross examination performed at [place], [facility] [place] [address] Date of Report: 02/17/2021 Date of Procedure: 02/13/2021 Date of Receipt: 02/13/2021 Submitted by: SHAHAB FREEMAN ([id number]) Location: [facility] Diagnostic interpretation performed at [place] [place] [address]. CLIA Number: [id number] Normal [facility] CNOVon 02-04-2021 CNOV Office Visit (GENSWS ) ADRIAN TROY ([id number]) 1950 M Date Time Provider Department 02/04/21 9:30 AM PETESHAHAB BAIRES During your visit today, we recorded the following information about you: Temperature Pulse Weight 97.8 degrees 58/minute 78.1 kg Adrian Woodruff [facility] 02/04/2021 10:14 AM Signed REVIEW OF SYSTEMS: General: The patient denies fatigue, denies weight loss, denies weight gain, denies feeling hot, and denies feelings of cold. Eyes: The patient denies glaucoma, denies eye injury/surgery, wears glasses or contacts. Ear/Nose/Throat: The patient denies allergies, denies hayfever, denies ear infections, and denies bloody noses. Cardiovascular: The patient NOTES chest pain, denies heart disease, denies high blood pressure,denies cardiac stent, denies prior heart attack, NOTES irregular heart beat, denies high cholesterol, denies poor circulation, denies heart failure, other cardiac issues, denies claudication, denies cold feet, denies peripheral arterial stent. Respiratory: The patient denies tuberculosis, denies pneumonia, denies frequent cough, denies pulmonary embolism, denies shortness of breath, and denies coughing up blood. Gastrointestinal: The patient denies difficulty swallowing, denies acid reflux, denies ulcers, denies vomiting, denies jaundice/hepatitis, denies gallbladder problems, denies black or tarry stools, NOTES hemorrhoids, denies bleeding from rectum, denies diverticulitis, denies constipation, denies diarrhea, denies loss of stool control, and NOTES hernias. Kidney/Bladder: The patient denies kidney stones, denies urine infections, and denies bloody urine. Skin: The patient denies a history of skin cancer, denies bleeding/changing moles, and denies a history of skin rash. Neurologic: The patient denies a history of epilepsy/convulsions, denies headaches, NOTES head/spinal injuries, and denies stroke/TIA. Psychiatric: The patient denies psychiatric medications, denies depression, and denies voices, denies substance abuse. Endocrine: The patient denies thyroid disorders, denies diabetes, and denies hormonal problems. Hematologic: The patient denies a history of bruising, denies bleeding, and denies anemia, denies blood clots. Infections: The patient denies a history of measles and mumps, denies rheumatic fever, and denies sexually transmitted diseases. Musculoskeletal: The patient denies back pain/injury, NOTES back problems, denies sciatica, denies knee/foot trouble, denies arthritis, or denies gout. When was patient's last Mammogram screening? N/A Last Colonoscopy: Unknown Adrian Freeman III, MD 02/15/2021 12:56 PM Signed HISTORY AND PHYSICAL Adrian Troy 1950 REFERRING PHYSICIAN: Connie Wilson DO CHIEF COMPLAINT: No chief complaint on file. HPI: The patient is a 70 year old male with a complaint of large subcutaneous lesion to his back. Is been there for many years. Is gradually been increasing in size. Becoming more uncomfortable for him when he is lying down.. The patient is being seen by me today at the request of Dr. Connie Wilson DO for my opinion and advice regarding Lesion of subcutaneous tissue (primary encounter diagnosis). PAST MEDICAL HISTORY Diagnosis Date - CAD (coronary artery disease) - PVC (premature ventricular contraction) PAST SURGICAL HISTORY Procedure Laterality Date - APPENDECTOMY HX 2019 - LAMINECTOMY,LUMBAR 1981 Current Outpatient Medications Medication Sig - propranolol (INDERAL) 60 mg tablet Take 60 mg by mouth three times daily. - tamsulosin (FLOMAX) 0.4 mg Take 0.4 mg by mouth once daily. - amLODIPine (NORVASC) 5 mg tablet Take 1 tablet by mouth once daily. - aspirin, enteric coated (ECOTRIN LOW STRENGTH) 81 mg EC tablet Take 1 tablet by mouth once daily. - metoprolol tartrate, short acting, 25 mg tablet Take 1 tablet by mouth twice daily. - nitroglycerin sublingual 0.4 mg SL tablet Dissolve 1 tablet under the tongue as needed for Chest Pain. If no pain relief call 911. No current facility-administered medications for this visit. ALLERGIES: Patient has no known allergies. PERSONAL HISTORY: Social History Tobacco Use - Smoking status: Never Smoker - Smokeless tobacco: Never Used Vaping Use - Vaping Use: Never used Substance Use Topics - Alcohol use: Yes Comment: on occasion - Drug use: No FAMILY HISTORY: FAMILY HISTORY Problem Relation Age of Onset - Cancer Father - Coronary Artery Disease Mother - Coronary Artery Disease Brother - Hypertension Sister REVIEW OF SYMPTOMS: The review of systems data was entered by the nurse and reviewed by mn Nursing Notes: Adrian Woodruff LPN 02/04/2021 10:14 AM Signed REVIEW OF SYSTEMS: General: The patient denies fatigue, denies weight loss, denies weight gain, denies feeling hot, and denies feelings of cold (more content not included)... Normal [facility] SPEP ([id number])Ordered By: Syst em Directional Drill Operator on 04-15-2020 Albumin [Mass/Vol] 3.9 g/dL Normal 2.9-4.4 [facility] Internal Medicine Work Phone: Comment on above: PATIENT NOT FASTINGP ERFORMED BY: CB [facility] Iuobur3061 [facility] [id number] Albumin/Globulin [Mass ratio] 1.4 {ratio} Normal 0.7-1.7 [facility] Work Phone: Comment on above: PATIENT NOT FASTINGP ERFORMED BY: CB [facility] Oeryaw9756 [facility] [id number] Alpha 1 globulin Elph [Mass/Vol] 0.3 g/dL Normal 0.0-0.4 [facility] Work Phone: Comment on above: PATIENT NOT FASTINGP ERFORMED BY: CB [facility] Ivpnun9531 [facility] [id number] Alpha 2 globulin Elph [Mass/Vol] 0.7 g/dL Normal 0.4-1.0 [facility] Work Phone: Comment on above: PATIENT NOT FASTINGP ERFORMED BY: CB [facility] Pmwgfg3055 [facility] [id number] Beta globulin Elph [Mass/Vol] 0.8 g/dL Normal 0.7-1.3 [facility] Work Phone: Comment on above: PATIENT NOT FASTINGP ERFORMED BY: CB [facility] Pyicqk5565 [address]Dublin [place] [id number] Gamma globulin Elph [Mass/Vol] 0.9 g/dL Normal 0.4-1.8 [facility] Work Phone: Comment on above: PATIENT NOT FASTINGP ERFORMED BY: CB [facility] Ssorup6917 [address] [place] [id number] Globulin (S) [Mass/Vol] 2.7 g/dL Normal 2.2-3.9 [facility] Work Phone: Comment on above: PATIENT NOT FASTINGP ERFORMED BY: CB [facility] Aznumi6708 [address]Dublin [place] [id number] Protein [Mass/Vol] 6.6 g/dL Normal 6.0-8.5 [facility] Internal Medicine Work Phone: Comment on above: PATIENT NOT FASTINGP ERFORMED BY: CB [facility] Phalwt3914 [address] [place] [id number] Protein.monoclonal Elph [Mass/Vol] Not Observed Normal [facility] Work Phone: Comment on above: PATIENT NOT FASTINGP ERFORMED BY: CB [facility] Dqhurg0662 [address] [place] [id number] Systemic Lupus Profile ([id number])Ordered By: [employer] on 04-15-2020 Chromatin Ab Qn <0.2 Normal 0.0-0.9 [facility] Internal Medicine Work Phone: Comment on above: PATIENT NOT FASTINGP ERFORMED BY: CB [facility] Kvblfu1860 [address] [place] [id number] DNA double strand Ab Qn (S) 12 {IU/mL} Abnormal 0-9 [facility] Work Phone: Comment on above: Negative <5 Equivoca l 5 - 9 Positive >9 PATIENT NOT FASTINGP ERFORMED BY: CB [facility] Abogrh7055 [address] [place] [id number] DNA double strand Ab Qn (S) 12 [IU]/mL Abnormal 0-9 [facility]; [facility] Work Phone: Comment on above: Negative <5 Equivoca l 5 - 9 Positive >9 PATIENT NOT FASTINGP ERFORMED BY: CB [facility] Popmwv0190 [address] [place] [id number] Rheumatoid factor Qn [IU]/mL Normal 0.0-13.9 [facility] Work Phone: Comment on above: PATIENT NOT FASTINGP ERFORMED BY: CB [facility] Drqsza1717 [address] [place] [id number] Rheumatoid factor Qn [IU]/mL Normal 0.0-13.9 [facility]; [facility] Work Phone: Comment on above: PATIENT NOT FASTINGP ERFORMED BY: CB [facility] Wztesa6396 [address]Dublin [place] [id number] Ribonucleoprotein extractable nuclear Ab Qn (S) 0.2 {AI} Normal 0.0-0.9 [facility] Work Phone: Comment on above: PATIENT NOT FASTINGP ERFORMED BY: CB [facility] Phbnws1304 [address] [place] [id number] Sjogrens syndrome-A extractable nuclear Ab Qn (S) <0.2 Normal 0.0-0.9 [facility] Work Phone: Comment on above: PATIENT NOT FASTINGP ERFORMED BY: CB [facility] Fdoxkp2443 [address] [place] [id number] Sjogrens syndrome-B extractable nuclear Ab Qn (S) <0.2 Normal 0.0-0.9 [facility] Work Phone: Comment on above: PATIENT NOT FASTINGP ERFORMED BY: CB [facility] Muhrso4779 [address] [place] [id number] Allen extractable nuclear Ab Qn (S) <0.2 Normal 0.0-0.9 [facility] Work Phone: Comment on above: PATIENT NOT FASTINGP ERFORMED BY: CB [facility] Tziyqo2630 [address] [place] [id number] UPEP ([id number])Ordered By: Syst em Directional Drill Operator on 04-15-2020 Albumin Elph (U) [Mass fraction] 32.4 % Normal [facility] Work Phone: Comment on above: PATIENT NOT FASTINGP ERFORMED BY: CB [facility] Rvxpfa6412 [address] [place] [id number] Alpha 1 globulin Elph (U) [Mass fraction] 5.4 % Normal [facility] Work Phone: Comment on above: PATIENT NOT FASTINGP ERFORMED BY: CB [facility] Maewtj0993 [address] [place] [id number] Alpha 2 globulin Elph (U) [Mass fraction] 19.0 % Normal [facility] Work Phone: Comment on above: PATIENT NOT FASTINGP ERFORMED BY: CB [facility] Kcadbx7218 [address] [place] [id number] Beta globulin Elph (U) [Mass fraction] 28.2 % Normal [facility] Work Phone: Comment on above: PATIENT NOT FASTINGP ERFORMED BY: CB [facility] Ovalqb1736 [address] [place] [id number] Gamma globulin Elph (U) [Mass fraction] 15.0 % Normal [facility] Work Phone: Comment on above: PATIENT NOT FASTINGP ERFORMED BY: CB [facility] Cuwrqq7675 [address]Dublin [place] [id number] Laboratory comment Dariusz (Report) SPRCS Normal [facility] Work Phone: Comment on above: Protein electrophore sis scan will follow via computer, mail, orcourier delivery. PATIENT NOT FASTINGP ERFORMED BY: CB [facility] Mfxfpb0499 [address]Dublin [place] [id number] Laboratory report . Normal Compreh ensive Internal Medicine Work Phone: Comment on above: PATIENT NOT FASTINGP ERFORMED BY: CB [facility] Uhayxm5749 [address] [place] [id number] Protein (U) [Mass/Vol] 12.5 mg/dL Normal [facility] Work Phone: Comment on above: PATIENT NOT FASTINGP ERFORMED BY: CB [facility] Obrubm1310 [address]bl[address] [place] [id number] Protein.monoclonal Elph (U) [Mass fraction] Comment: Normal [facility] Work Phone: Comment on above: ASYMMETRICAL GAMMA PATIENT NOT FASTINGP ERFORMED BY: CB [facility] Oaxhet5227 [address] Roadblin [place] [id number] FREE TRIIDOTHYRONINE (T3) ([id number])Ordered By: [employer] on 03-06-2020 Free T3 [Mass/Vol] 3.3 pg/mL Normal 2.0-4.4 [facility] Internal Medicine Work Phone: Comment on above: PATIENT NOT FASTINGP ERFORMED BY: CB [facility] Mmrxqy0948 [facility] [id number] BY: eCoast[address] [id number] T4, FREE ([id number])Ordered By: [employer] on 03-06-2020 Free T4 [Mass/Vol] 1.55 ng/dL Normal 0.82-1.77 [facility] Internal Medicine Work Phone: Comment on above: PATIENT NOT FASTINGP ERFORMED BY: [facility] Wogzyb7468 [facility] [id number] BY: [address] [id number] TESTOSTERONE FREE (56514)Ord ered By: [employer] on 03-06-2020 Testosterone Free [Mass/Vol] 9.6 pg/mL Normal 6.6-18.1 [facility] Internal Medicine Work Phone: Comment on above: PATIENT NOT FASTINGP ERFORMED BY: [facility] Bjsklz7[address] [facility]in [place] [id number] BY: e[address] [id number] TSH (THYROID STIMULATING HOR KOBY) ([id number])Ordered By: [employer] on 03-06-2020 TSH Qn 0.682 {uIU/mL} Normal 0.450-4.500 [facility] Internal [facility] Work Phone: Comment on above: PATIENT NOT FASTINGP ERFORMED BY: LabRichard Ville 3606970 [facility] [id number] BY: [facility] [facility] [id number] CBC W/AUTO DIFF WBC (97989)O rdered By: [employer] on 02-14-2020 Basophils (Bld) [#/Vol] 0.1 {x10E3/uL} Normal 0.0-0.2 [facility] Work Phone: Comment on above: PATIENT WAS FASTINGP ERFORMED BY: LabCoBrendan Ville [id number] [facility] [id number] Basophils (Bld) [#/Vol] 0.1 10*3/uL Normal 0.0-0.2 [facility] Work Phone: Comment on above: PATIENT WAS FASTINGP ERFORMED BY: LabRichard [place] [id number] [facility] [id number] Basophils/100 WBC (Bld) 1 % Normal [facility] Work Phone: Comment on above: PATIENT WAS FASTINGP ERFORMED BY: LabRichard [place] 3606970 [facility] [id number] Eosinophils (Bld) [#/Vol] 0.1 {x10E3/uL} Normal 0.0-0.4 [facility] Work Phone: Comment on above: PATIENT WAS FASTINGP ERFORMED BY: LabRichard [place] 3606970 [facility] [id number] Eosinophils (Bld) [#/Vol] 0.1 10*3/uL Normal 0.0-0.4 [facility] Work Phone: Comment on above: PATIENT WAS FASTINGP ERFORMED BY: LabRichard [place] 3606970 [facility] [id number] Eosinophils/100 WBC (Bld) 2 % Normal [facility] Work Phone: Comment on above: PATIENT WAS FASTINGP ERFORMED BY: [facility]6370 [facility] [id number] Erythrocyte distribution width (RBC) [Ratio] 12.3 % Normal 11.6-15.4 [facility] Work Phone: Comment on above: PATIENT WAS FASTINGP ERFORMED BY: [facility]6370 [facility] [id number] Hematocrit (Bld) [Volume fraction] 45.5 % Normal 37.5-51.0 [facility] Work Phone: Comment on above: PATIENT WAS FASTINGP ERFORMED BY: [place] [id number] [facility] [id number] Hemoglobin (Bld) [Mass/Vol] 15.4 g/dL Normal 13.0-17.7 [facility] Work Phone: Comment on above: PATIENT WAS FASTINGP ERFORMED BY: [place] [id number] [facility] [id number] Immature granulocytes (Bld) [#/Vol] 0.0 {x10E3/uL} Normal 0.0-0.1 [facility] Work Phone: Comment on above: PATIENT WAS FASTINGP ERFORMED BY: [place] [id number] [facility] [id number] Immature granulocytes (Bld) [#/Vol] 0.0 10*3/uL Normal 0.0-0.1 [facility] Work Phone: Comment on above: PATIENT WAS FASTINGP ERFORMED BY: [place] [id number] [facility] [id number] Immature granulocytes/100 WBC (Bld) 0 % Normal [facility] Work Phone: Comment on above: PATIENT WAS FASTINGP ERFORMED BY: [place] [id number] [facility] [id number] Lymphocytes (Bld) [#/Vol] 0.7 {x10E3/uL} Normal 0.7-3.1 [facility] Work Phone: Comment on above: PATIENT WAS FASTINGP ERFORMED BY: EDBBIE [facility]6370 [facility] [id number] Lymphocytes (Bld) [#/Vol] 0.7 10*3/uL Normal 0.7-3.1 [facility] Work Phone: Comment on above: PATIENT WAS FASTINGP ERFORMED BY: [facility]6370 [facility] [id number] Lymphocytes/100 WBC (Bld) 15 % Normal [facility] Work Phone: Comment on above: PATIENT WAS FASTINGP ERFORMED BY: [facility] Gyxbrx2162 [facility] [id number] MCH (RBC) [Entitic mass] 32.0 pg Normal 26.6-33.0 [facility] Work Phone: Comment on above: PATIENT WAS FASTINGP ERFORMED BY: [facility] Nivydr8917 [facility] [id number] MCHC (RBC) [Mass/Vol] 33.8 g/dL Normal 31.5-35.7 [facility] Work Phone: Comment on above: PATIENT WAS FASTINGP ERFORMED BY: [facility]6370 [facility] [id number] MCV (RBC) [Entitic vol] 94 fL Normal 79-97 [facility] Work Phone: Comment on above: PATIENT WAS FASTINGP ERFORMED BY: [facility] Lnrerf5186 [facility] [id number] Monocytes (Bld) [#/Vol] 0.5 {x10E3/uL} Normal 0.1-0.9 [facility] Work Phone: Comment on above: PATIENT WAS FASTINGP ERFORMED BY: [facility]6370 [facility] [id number] Monocytes (Bld) [#/Vol] 0.5 10*3/uL Normal 0.1-0.9 [facility] Work Phone: Comment on above: PATIENT WAS FASTINGP ERFORMED BY: DEBBIE LabCojean pierre Lpnozw4349 [address] RoadD[address] [place] [id number] Monocytes/100 WBC (Bld) 10 % Normal [facility] Work Phone: Comment on above: PATIENT WAS FASTINGP ERFORMED BY: DEBBIE [facility] Qqbnxe5103 [address] [place] [id number] Neutrophils (Bld) [#/Vol] 3.4 {x10E3/uL} Normal 1.4-7.0 [facility] Work Phone: Comment on above: PATIENT WAS FASTINGP ERFORMED BY: DEBBIE [facility] Xhlzwc5705 [address] RoadDublin [place] [id number] Neutrophils (Bld) [#/Vol] 3.4 10*3/uL Normal 1.4-7.0 [facility] Work Phone: Comment on above: PATIENT WAS FASTINGP ERFORMED BY: DEBBIE LabPiotr BradshawMssxms7988 [address] RoadDublin [place] [id number] Neutrophils/100 WBC (Bld) 72 % Normal [facility] Work Phone: Comment on above: PATIENT WAS FASTINGP ERFORMED BY: DEBBIE LabPiotr BradshawFwkiot6772 [address] RoadDublin [place] [id number] Platelets (Bld) [#/Vol] 210 {x10E3/uL} Normal 150-450 [facility] Work Phone: Comment on above: PATIENT WAS FASTINGP ERFORMED BY: DEBBIE [facility] Zcceem5621 [address] [place] [id number] Platelets (Bld) [#/Vol] 210 10*3/uL Normal 150-450 [facility] Work Phone: Comment on above: PATIENT WAS FASTINGP ERFORMED BY: DEBBIE [facility] Rgpctn4071 [address] [place] [id number] RBC (Bld) [#/Vol] 4.82 {x10E6/uL} Normal 4.14-5.80 [facility] Internal Medicine Work Phone: Comment on above: PATIENT WAS FASTINGP ERFORMED BY: DEBBIE [facility] Ubckfv2136 [address] RoadDublin [place] [id number] RBC (Bld) [#/Vol] 4.82 10*6/uL Normal 4.14-5.80 [facility] Internal Medicine Work Phone: Comment on above: PATIENT WAS FASTINGP ERFORMED BY: DEBBIE [facility] Fibmyn5579 [address]Dublin [place] [id number] WBC (Bld) [#/Vol] 4.8 {x10E3/uL} Normal 3.4-10.8 [facility] Internal Medicine Work Phone: Comment on above: PATIENT WAS FASTINGP ERFORMED BY: DEBBIE [facility] Txtdhp5314 [address] [place] [id number] WBC (Bld) [#/Vol] 4.8 10*3/uL Normal 3.4-10.8 [facility] Internal Medicine Work Phone: Comment on above: PATIENT WAS FASTINGP ERFORMED BY: DEBBIE [facility] Rjazps[address] [facility]bl[facility] [place] [id number] METABOLIC PANEL, COMPREHENSI VE ([id number])Ordered By: [employer] on 02-14-2020 Albumin [Mass/Vol] 4.4 g/dL Normal 3.8-4.8 [facility] Internal Medicine Work Phone: Comment on above: PATIENT WAS FASTINGP ERFORMED BY: DEBBIE [facility] Udnqoh0990 [address] Roadblin [place] [id number]; fu 9-9 DF Albumin/Globulin [Mass ratio] 1.9 {ratio} Normal 1.2-2.2 [facility] Internal Medicine Work Phone: Comment on above: PATIENT WAS FASTINGP ERFORMED BY: CB [facility] Ppbcbv9721 [address] RoadDublin [place] [id number]; fu 9-9 DF ALP [Catalytic activity/Vol] 82 [iU]/L Normal 39-117 [facility] Internal Medicine Work Phone: Comment on above: PATIENT WAS FASTINGP ERFORMED BY: CB [facility] Ofyvks2156 [address] RoadDublin [place] [id number]; fu 9-9 DF ALP [Catalytic activity/Vol] 82 U/L Normal 39-117 [facility] Work Phone: Comment on above: PATIENT WAS FASTINGP ERFORMED BY: CB [facility] Tszpek6858 [address] RoadDublin [place] [id number]; fu 9-9 DF ALT [Catalytic activity/Vol] 10 [iU]/L Normal 0-44 [facility] Work Phone: Comment on above: PATIENT WAS FASTINGP ERFORMED BY: CB [facility] Cuibnl8501 [address] RoadDublin [place] [id number]; fu 9-9 DF ALT [Catalytic activity/Vol] 10 U/L Normal 0-44 [facility] Work Phone: Comment on above: PATIENT WAS FASTINGP ERFORMED BY: CB [facility] Ujstvt3471 [address] RoadDublin [place] [id number]; fu 9-9 DF AST [Catalytic activity/Vol] 14 [iU]/L Normal 0-40 [facility] Work Phone: Comment on above: PATIENT WAS FASTINGP ERFORMED BY: CB [facility] Ebhelg5250 [address] RoadDublin [place] [id number]; fu 9-9 DF AST [Catalytic activity/Vol] 14 U/L Normal 0-40 [facility] Work Phone: Comment on above: PATIENT WAS FASTINGP ERFORMED BY: CB [facility] Qdnzhd6225 [address] RoadDublin [place] [id number]; fu 9-9 DF Bilirubin [Mass/Vol] 1.0 mg/dL Normal 0.0-1.2 [facility]: Comment on above: PATIENT WAS FASTINGP ERFORMED BY: CB [facility] Ffnozg6274 [address]Dublin [place] [id number]; fu 9-9 DF Calcium [Mass/Vol] 9.5 mg/dL Normal 8.6-10.2 [facility] Internal Medicine Work Phone: Comment on above: PATIENT WAS FASTINGP ERFORMED BY: CB [facility] Xbdbjw8014 [address] RoadDublin [place] [id number]; fu 9-9 DF Chloride [Moles/Vol] 99 mmol/L Normal 96-106 Comp rehensive Internal Medicine Work Phone: Comment on above: PATIENT WAS FASTINGP ERFORMED BY: CB [facility] Zsvkak7630 [address] RoadDublin [place] [id number]; fu 9-9 DF CO2 [Moles/Vol] 29 mmol/L Normal 20-29 [facility] Internal Medicine Work Phone: Comment on above: PATIENT WAS FASTINGP ERFORMED BY: CB [facility] Kipiir9244 [address] RoadDublin [place] [id number]; fu 9-9 DF Creatinine [Mass/Vol] 1.05 mg/dL Normal 0.76-1.27 [facility] Work Phone: Comment on above: PATIENT WAS FASTINGP ERFORMED BY: CB [facility] Uqqssz0441 [address] RoadDublin [place] [id number]; fu 9- DF GFR/1.73 sq M predicted among blacks CKD-EPI (S/P/Bld) [Vol rate/Area] 83 mL/min/1.73 Normal [facility] Work Phone: Comment on above: PATIENT WAS FASTINGP ERFORMED BY: CB [facility] Lzuqip0206 [address] RoadDublin [place] [id number]; fu 9- DF GFR/1.73 sq M predicted among non-blacks CKD-EPI (S/P/Bld) [Vol rate/Area] 72 mL/min/1.73 Normal [facility] Work Phone: Comment on above: PATIENT WAS FASTINGP ERFORMED BY: CB [facility] Knobxi1478 [address] RoadDublin [place] [id number]; fu 9-9 DF Globulin (S) [Mass/Vol] 2.3 g/dL Normal 1.5-4.5 [facility] Work Phone: Comment on above: PATIENT WAS FASTINGP ERFORMED BY: CB [facility] Lxgjfo7472 [address] RoadDublin [place] [id number]; fu 9-9 DF Glucose [Mass/Vol] 94 mg/dL Normal 65-99 [facility] Internal Medicine Work Phone: Comment on above: PATIENT WAS FASTINGP ERFORMED BY: CB [facility] Ezjtfh8087 [address] RoadDublin [place] [id number]; fu 9-9 DF Potassium [Moles/Vol] 4.6 mmol/L Normal 3.5-5.2 [facility] Internal Medicine Work Phone: Comment on above: PATIENT WAS FASTINGP ERFORMED BY: CB [facility] Npojxt3265 [address]Dublin [place] [id number]; fu 9-9 DF Protein [Mass/Vol] 6.7 g/dL Normal 6.0-8.5 [facility] Internal Medicine Work Phone: Comment on above: PATIENT WAS FASTINGP ERFORMED BY: CB [facility] Pnmduz9138 [address] RoadDublin [place] [id number]; fu 9-9 DF Sodium [Moles/Vol] 140 mmol/L Normal 134-144 [facility] Internal Medicine Work Phone: Comment on above: PATIENT WAS FASTINGP ERFORMED BY: CB [facility] Eoafhq4474 [address] RoadDublin [place] [id number]; fu 9-9 DF Urea nitrogen [Mass/Vol] 22 mg/dL Normal 8-27 [facility] Internal Medicine Work Phone: Comment on above: PATIENT WAS FASTINGP ERFORMED BY: CB [facility] Qdmfml0336 [address] RoadDublin [place] [id number]; fu 9-9 DF Urea nitrogen/Creatinine [Mass ratio] 21 mg/mg Normal 10-24 [facility] Work Phone: Comment on above: PATIENT WAS FASTINGP ERFORMED BY: CB [facility] Pgxfof5171 [address]Dublin [place] [id number]; fu 9-9 DF PSA (PROSTATE SPECIFIC ANTIG EN) (11907)Ordered By: [employer] on 02-14-2020 Prostate specific Ag [Mass/Vol] 2.7 ng/mL Normal 0.0-4.0 [facility] Work Phone: Comment on above: Ciara ECLIA methodol ogy. .According to the [place] [employer], Serum PSA shoulddecrease and remain at undetectable levels after radicalprostatectomy. The AUA defines biochemical recurrence as an initialPSA value 0.2 ng/mL or greater followed by a subsequent confirmatoryPSA value 0.2 ng/mL or greater.Values obtained with different assay methods or kits cannot be usedinterchangeably. Results cannot be interpreted as absolute evidenceof the presence or absence of malignant disease. PATIENT WAS FASTINGP ERFORMED BY: CB [facility] Ivmzhc4954 [address] RoadDublin [place] [id number] URINALYSIS, W/ MICRO ([id number]) Ordered By: [employer] on 02-14-2020 Appearance (U) Clear Normal [facility] Internal Medicine Work Phone: Comment on above: PATIENT WAS FASTINGP ERFORMED BY: CB [facility] Ltbzyq7436 [address] RoadDublin [place] [id number] Bilirubin Ql (U) Negative Normal Comprehe nsive Internal Medicine Work Phone: Comment on above: PATIENT WAS FASTINGP ERFORMED BY: CB [facility] Gvnpvm9020 [address] RoadDublin [place] [id number] Bilirubin Ql (U) Negative Normal Comprehe nsive Internal Medicine Work Phone: Comment on above: PATIENT WAS FASTINGP ERFORMED BY: CB [facility] Xaivti6633 [address] RoadDublin [place] [id number] Color (U) Yellow Normal [facility] Work Phone: Comment on above: PATIENT WAS FASTINGP ERFORMED BY: CB [facility] Ryinho4723 [address] RoadDublin [place] [id number] Glucose Ql (U) Negative Normal [facility] Internal Medicine Work Phone: Comment on above: PATIENT WAS FASTINGP ERFORMED BY: CB [facility] Tkhihg0361 [address] RoadD[address] [place] [id number] Glucose Ql (U) Negative Normal [facility] Internal Medicine Work Phone: Comment on above: PATIENT WAS FASTINGP ERFORMED BY: CB [facility] Cfcspn4455 [address] RoadDublin [place] [id number] Hemoglobin Ql (U) Negative Normal Compreh ensive Internal Medicine Work Phone: Comment on above: PATIENT WAS FASTINGP ERFORMED BY: DEBBIE [facility] Oghkee0350 [address] RoadD[place] [id number] Hemoglobin Ql (U) Negative Normal Compreh ensive Internal Medicine Work Phone: Comment on above: PATIENT WAS FASTINGP ERFORMED BY: DEBBIE [facility] Kgbjsd6873 [address] RoadDublin [place] [id number] Ketones Ql (U) Negative Normal [facility] Internal Medicine Work Phone: Comment on above: PATIENT WAS FASTINGP ERFORMED BY: DEBBIE LabCojean pierre BradshawKnuqeb6421 [address] RoadDublin [place] [id number] Ketones Ql (U) Negative Normal [facility] Internal Medicine Work Phone: Comment on above: PATIENT WAS FASTINGP ERFORMED BY: DEBBIE LabCojean pierre BradshawTdakbt8879 [address] RoadDublin [place] [id number] Leukocyte esterase Test strip Ql (U) Negative Normal [facility] Work Phone: Comment on above: PATIENT WAS FASTINGP ERFORMED BY: DEBBIE LabCojean pierre BradshawGdllsw0356 [address] RoadDublin [place] [id number] Leukocyte esterase Test strip Ql (U) Negative Normal [facility] Work Phone: Comment on above: PATIENT WAS FASTINGP ERFORMED BY: DEBBIE Apariciorp Ibeddo2943 [address] RoadDublin [place] [id number] Microscopic observation LM Nom (Urine sed) See below: Normal [facility] Work Phone: Comment on above: Microscopic was naun cated and was performed. PATIENT WAS FASTINGP ERFORMED BY: DEBBIE [facility] Nqmlqv7397 [address] RoadDublin [place] [id number] Microscopic observation LM Nom (Urine sed) MICRON Normal [facility] Work Phone: Comment on above: Microscopic follows if indicated. PATIENT WAS FASTINGP ERFORMED BY: DEBBIE [facility] Sxkkfi8662 [address] RoadDublin [place] [id number] Nitrite Ql (U) Negative Normal [facility] Internal Medicine Work Phone: Comment on above: PATIENT WAS FASTINGP ERFORMED BY: DEBBIE Eden[address]bl[address] [place] [id number] Nitrite Ql (U) Negative Normal [facility] Internal Medicine Work Phone: Comment on above: PATIENT WAS FASTINGP ERFORMED BY: DEBBIE Eden[address] [facility]in [place] [id number] pH (U) 6.0 [pH] Normal 5.0-7.5 [facility] Work Phone: Comment on above: PATIENT WAS FASTINGP ERFORMED BY: DEBBIE Eden[address] [facility]in [place] [id number] Protein Ql (U) Negative Normal [facility] Internal Medicine Work Phone: Comment on above: PATIENT WAS FASTINGP ERFORMED BY: DEBBIE Eden6[address] [facility] [id number] Protein Ql (U) Negative Normal [facility] Internal Medicine Work Phone: Comment on above: PATIENT WAS FASTINGP ERFORMED BY: DEBBIE Eden6370 [facility] [id number] Specific gravity (U) [Rel density] 1.021 1 Normal 1.005-1.030 [facility] Internal Medicine Work Phone: Comment on above: PATIENT WAS FASTINGP ERFORMED BY: DEBBIE Eden6370 [facility] [id number] Urobilinogen (U) [Mass/Vol] 0.2 mg/dL Normal 0.2-1.0 [facility] Internal Medicine Work Phone: Comment on above: PATIENT WAS FASTINGP ERFORMED BY: DEBBIE Eden[address] [facility] [id number] Urobilinogen Test strip (U) [Mass/Vol] 0.2 mg/dL Normal 0.2-1.0 [facility] Internal [facility] Work Phone: Comment on above: PATIENT WAS FASTINGP ERFORMED BY: DEBBIE Bradshawlin6370 [address] [facility] [id number] TESTOSTERONE FREE ([id number])Ord ered By: [employer] on 12-14-2018 Testosterone Free [Mass/Vol] 8.3 pg/mL Normal 6.6-18.1 [facility] Work Phone: Comment on above: PATIENT NOT FASTINGP ERFORMED BY: [place] [address] [facility] [id number] CBC & PLATELETS (AUTO) ([id number])Ordered By: [employer] on 11-22-2018 Erythrocyte distribution width Ratio (RBC) 13.4 % Normal 12.3-15.4 [facility] Work Phone: Comment on above: PATIENT NOT FASTINGP ERFORMED BY: [facility]6370 [facility] [id number] Hematocrit Volume Fraction (Bld) 43.6 % Normal 37.5-51.0 [facility] Work Phone: Comment on above: PATIENT NOT FASTINGP ERFORMED BY: LabCoJFK Johnson Rehabilitation InstituteDfzveh2402 [facility] [id number] Hemoglobin mass conc (Bld) 15.0 g/dL Normal 13.0-17.7 [facility] Work Phone: Comment on above: PATIENT NOT FASTINGP ERFORMED BY: LabCoJFK Johnson Rehabilitation InstituteReakhc9687 [facility] [id number] MCH Entitic mass (RBC) 31.8 pg Normal 26.6-33.0 [facility] Work Phone: Comment on above: PATIENT NOT FASTINGP ERFORMED BY: LabCoJFK Johnson Rehabilitation InstituteIhmzbe8460 [facility] [id number] MCHC mass conc (RBC) 34.4 g/dL Normal 31.5-35.7 Comp [facility] Work Phone: Comment on above: PATIENT NOT FASTINGP ERFORMED BY: LabCoJFK Johnson Rehabilitation InstituteEojauy7400 [facility] [id number] MCV Entitic volume (RBC) 93 fL Normal 79-97 [facility] Work Phone: Comment on above: PATIENT NOT FASTINGP ERFORMED BY: CB [facility] Xozadq2298 [address] RoadDublin [place] [id number] Platelets #/vol (Bld) 197 {x10E3/uL} Normal 150-450 [facility] Work Phone: Comment on above: Please note refere nce interval change PATIENT NOT FASTINGP ERFORMED BY: CB [facility] Qbeelr9199 [address] RoadDublin [place] [id number] Platelets (Bld) [#/Vol] 197 10*3/uL Normal 150-450 [facility] Work Phone: Comment on above: Please note refere nce interval change PATIENT NOT FASTINGP ERFORMED BY: CB [facility] Segohi5700 [address] RoadDublin [place] [id number] RBC #/vol (Bld) 4.71 {x10E6/uL} Normal 4.14-5.80 Comp [facility] Work Phone: Comment on above: PATIENT NOT FASTINGP ERFORMED BY: CB [facility] Ryltqq9181 [address] RoadDublin [place] [id number] RBC (Bld) [#/Vol] 4.71 10*6/uL Normal 4.14-5.80 Compr ensive Internal Medicine Work Phone: Comment on above: PATIENT NOT FASTINGP ERFORMED BY: CB [facility] Evrcdq4403 [address] RoadDublin [place] [id number] WBC #/vol (Bld) 4.2 {x10E3/uL} Normal 3.4-10.8 Compr ensive Internal Medicine Work Phone: Comment on above: PATIENT NOT FASTINGP ERFORMED BY: CB [facility] Woyywy0647 [address] RoadDublin [place] [id number] WBC (Bld) [#/Vol] 4.2 10*3/uL Normal 3.4-10.8 Compre [facility] Internal Medicine Work Phone: Comment on above: PATIENT NOT FASTINGP ERFORMED BY: CB [facility] Lolwru1798 [address] RoadDublin [place] [id number] METABOLIC PANEL, COMPREHENSI VE ([id number])Ordered By: [employer] on 11-22-2018 Albumin mass conc 4.6 g/dL Normal 3.6-4.8 Compreh ensive Internal Medicine Work Phone: Comment on above: PATIENT NOT FASTINGP ERFORMED BY: CB [facility] Rxvdxb2132 [address] RoadDublin [place] [id number]; fu 6-19 DF Albumin/Globulin mass ratio 2.2 {ratio} Normal 1.2-2.2 [facility] Work Phone: Comment on above: PATIENT NOT FASTINGP ERFORMED BY: CB [facility] Zadjkb7191 [address] RoadDublin [place] [id number]; fu 6-19 DF ALP [Catalytic activity/Vol] 83 U/L Normal 39-117 [facility] Work Phone: Comment on above: PATIENT NOT FASTINGP ERFORMED BY: CB [facility] Hehxvk0427 [address] RoadDublin [place] [id number]; fu 6-19 DF ALP enzyme act/vol 83 [iU]/L Normal 39-117 [facility] Internal Medicine Work Phone: Comment on above: PATIENT NOT FASTINGP ERFORMED BY: CB [facility] Kqhzbq2891 [address] RoadDublin [place] [id number]; fu 6-19 DF ALT [Catalytic activity/Vol] 15 U/L Normal 0-44 [facility] Work Phone: Comment on above: PATIENT NOT FASTINGP ERFORMED BY: CB [facility] Rfqzxh7205 [address] RoadDublin [place] [id number]; fu 6-19 DF ALT enzyme act/vol 15 [iU]/L Normal 0-44 Compre [facility] Internal Medicine Work Phone: Comment on above: PATIENT NOT FASTINGP ERFORMED BY: CB [facility] Vfdzud3441 [address] RoadD[place] [id number]; fu 6-19 DF AST [Catalytic activity/Vol] 19 U/L Normal 0-40 [facility] Work Phone: Comment on above: PATIENT NOT FASTINGP ERFORMED BY: CB [facility] Gwljcx4439 [address] RoadDublin [place] [id number]; fu 6-19 DF AST enzyme act/vol 19 [iU]/L Normal 0-40 [facility]pre [facility] Internal [facility] Work Phone: Comment on above: PATIENT NOT FASTINGP ERFORMED BY: CB [facility] Dmwjej1695 [address] RoadDublin [place] [id number]; fu 6-19 DF Bilirubin mass conc 0.8 mg/dL Normal 0.0-1.2 Compr ensive Internal Medicine Work Phone: Comment on above: PATIENT NOT FASTINGP ERFORMED BY: CB [facility] Fidbll0516 [address] RoadDublin [place] [id number]; fu 6-19 DF Calcium mass conc 9.5 mg/dL Normal 8.6-10.2 Compreh ensive Internal Medicine Work Phone: Comment on above: PATIENT NOT FASTINGP ERFORMED BY: CB [facility] Juqufy4345 [address] RoadDublin [place] [id number]; fu 6-19 DF Chloride molar conc 101 mmol/L Normal 96-106 Compr ensive Internal Medicine Work Phone: Comment on above: PATIENT NOT FASTINGP ERFORMED BY: CB [facility] Xrqbxj6135 [address] RoadD[place] [id number]; fu 6-19 DF CO2 molar conc 23 mmol/L Normal 20-29 Comprehens vane Internal Medicine Work Phone: Comment on above: PATIENT NOT FASTINGP ERFORMED BY: CB [facility] Knrlrp6555 [address] RoadDublin [place] [id number]; fu 6-19 DF Creatinine mass conc 1.11 mg/dL Normal 0.76-1.27 Comp [facility] Work Phone: Comment on above: PATIENT NOT FASTINGP ERFORMED BY: CB [facility] Tfxqbr4940 [address] RoadDublin [place] [id number]; fu 6-19 DF GFR/1.73 sq M predicted among blacks CKD-EPI vol rate/area (S/P/Bld) 78 mL/min/1.73 Normal Comprehensiv e Internal Medicine Work Phone: Comment on above: PATIENT NOT FASTINGP ERFORMED BY: CB [facility] Dnkrpi4154 [address] RoadDublin [place] [id number]; fu 6- DF GFR/1.73 sq M predicted among non-blacks CKD-EPI vol rate/area (S/P/Bld) 67 mL/min/1.73 Normal [facility] Work Phone: Comment on above: PATIENT NOT FASTINGP ERFORMED BY: CB [facility] Mpzjfg9559 [address] RoadDublin [place] [id number]; fu 6- DF Globulin mass conc (S) 2.1 g/dL Normal 1.5-4.5 [facility] Work Phone: Comment on above: PATIENT NOT FASTINGP ERFORMED BY: CB [facility] Xoqgju6699 [address] RoadDublin [place] [id number]; fu 6- DF Glucose mass conc 95 mg/dL Normal 65-99 Compreh ensive Internal Medicine Work Phone: Comment on above: PATIENT NOT FASTINGP ERFORMED BY: CB [facility] Xllnlf2187 [address] RoadD[address] [place] [id number]; fu 6- DF Potassium molar conc 4.6 mmol/L Normal 3.5-5.2 Comp rehensive Internal Medicine Work Phone: Comment on above: PATIENT NOT FASTINGP ERFORMED BY: CB [facility] Gwdyaf6934 [address] RoadD[address] [place] [id number]; fu 6- DF Protein mass conc 6.7 g/dL Normal 6.0-8.5 Compreh ensive Internal Medicine Work Phone: Comment on above: PATIENT NOT FASTINGP ERFORMED BY: CB [facility] Cebpra5569 [address] RoadDublin [place] [id number]; fu 6- DF Sodium molar conc 141 mmol/L Normal 134-144 Compreh ensive Internal Medicine Work Phone: Comment on above: PATIENT NOT FASTINGP ERFORMED BY: CB [facility] Szawyf3630 [address] RoadDublin [place] [id number]; fu 6-19 DF Urea nitrogen mass conc 21 mg/dL Normal 8-27 [facility] Work Phone: Comment on above: PATIENT NOT FASTINGP ERFORMED BY: CB [facility] Zmkkjp1897 [address] RoadDublin [place] [id number]; fu 6-19 DF Urea nitrogen/Creatinine mass ratio 19 mg/mg Normal 10-24 [facility] Work Phone: Comment on above: PATIENT NOT FASTINGP ERFORMED BY: CB [facility] Xzavhe0861 [address] RoadD[address] [place] [id number]; fu 6-19 DF URINALYSIS ([id number])Ordered By : [employer] on 11-22-2018 Appearance Nom (U) Clear Normal Compre hensive Internal Medicine Work Phone: Comment on above: PATIENT NOT FASTINGP ERFORMED BY: CB [facility] Gzfiat9275 [address] RoadDublin [place] [id number] Bilirubin Ql (U) Negative Normal Comprehe nsive Internal Medicine Work Phone: Comment on above: PATIENT NOT FASTINGP ERFORMED BY: CB [facility] Ztcitq1564 [address] RoadD[place] [id number] Bilirubin Ql (U) Negative Normal Comprehe nsive Internal Medicine Work Phone: Comment on above: PATIENT NOT FASTINGP ERFORMED BY: DEBBIE [facility] Lcxgkr0461 [address] RoadD[address] [place] [id number] Color Nom (U) Yellow Normal Comprehensi ve Internal Medicine Work Phone: Comment on above: PATIENT NOT FASTINGP ERFORMED BY: CB [facility] Pvvrvo1909 [address] RoadD[address] [place] [id number] Glucose Ql (U) Negative Normal Comprehens vane Internal Medicine Work Phone: Comment on above: PATIENT NOT FASTINGP ERFORMED BY: CB [facility] Pcojfw6775 [address] RoadDublin [place] [id number] Glucose Ql (U) Negative Normal Comprehens vane Internal Medicine Work Phone: Comment on above: PATIENT NOT FASTINGP ERFORMED BY: CB [facility] Jmucez5674 [address] RoadDublin [place] [id number] Hemoglobin Ql (U) Negative Normal Compreh ensive Internal Medicine Work Phone: Comment on above: PATIENT NOT FASTINGP ERFORMED BY: DEBBIE Bradshawlin6370 [address] RoadD[address] [place] [id number] Hemoglobin Ql (U) Negative Normal Compreh ensive Internal Medicine Work Phone: Comment on above: PATIENT NOT FASTINGP ERFORMED BY: DEBBIE Eden6[address] [place] [id number] Ketones Ql (U) Negative Normal Comprehens vane Internal Medicine Work Phone: Comment on above: PATIENT NOT FASTINGP ERFORMED BY: DEBBIE Eden6[address] [place] [id number] Ketones Ql (U) Negative Normal Comprehens vane Internal Medicine Work Phone: Comment on above: PATIENT NOT FASTINGP ERFORMED BY: DEBBIE Eden6[address] [place] [id number] Leukocyte esterase Test strip Ql (U) Negative Normal [facility] Work Phone: Comment on above: PATIENT NOT FASTINGP ERFORMED BY: DEBBIE Eden6[address] [place] [id number] Leukocyte esterase Test strip Ql (U) Negative Normal [facility] Work Phone: Comment on above: PATIENT NOT FASTINGP ERFORMED BY: DEBBIE Eden6[address] [place] [id number] Microscopic observation LM Nom (Urine sed) MICNIP Normal [facility] Work Phone: Comment on above: Microscopic not naun cated and not performed. PATIENT NOT FASTINGP ERFORMED BY: DEBBIE Bradshawlin6370 [address] RoadD[address] [place] [id number] Nitrite Ql (U) Negative Normal Comprehens vane Internal Medicine Work Phone: Comment on above: PATIENT NOT FASTINGP ERFORMED BY: DEBBIE Bradshawlin6370 [address] RoadD[address] [place] [id number] Nitrite Ql (U) Negative Normal Comprehens vane Internal Medicine Work Phone: Comment on above: PATIENT NOT FASTINGP ERFORMED BY: DEBBIE Lisajean pierre BradshawHkcdgy3[address] [facility]in [place] [id number] pH (U) 5.5 [pH] Normal 5.0-7.5 [facility] Work Phone: Comment on above: PATIENT NOT FASTINGP ERFORMED BY: DEBBIE Lisajean pierre BradshawHsoehj9964 Jenkins RoadAtrium Healthin [place] [id number] Protein Ql (U) Negative Normal Comprehens vane Internal Medicine Work Phone: Comment on above: PATIENT NOT FASTINGP ERFORMED BY: DEBBIE BarriePiotr BradshawWnbreh28[address] [facility]in [place] [id number] Protein Ql (U) Negative Normal Comprehens vane Internal Medicine Work Phone: Comment on above: PATIENT NOT FASTINGP ERFORMED BY: DEBBIE Bradshawlin6370 [facility] [id number] Specific gravity Relative Density (U) 1.021 1 Normal 1.005-1.030 Comprehensi Internal Medicine Work Phone: Comment on above: PATIENT NOT FASTINGP ERFORMED BY: DEBBIE BarriePiotr BradshawXzlqsz2914 [address] [facility] [id number] Urobilinogen (U) [Mass/Vol] 0.2 mg/dL Normal 0.2-1.0 [facility] Internal Medicine Work Phone: Comment on above: PATIENT NOT FASTINGP ERFORMED BY: DEBBIE Lisajean pierre BradshawUnwazn9[address] [facility]in [place] [id number] Urobilinogen Test strip mass conc (U) 0.2 mg/dL Normal 0.2-1.0 Comprehensiv e Internal Medicine Work Phone: Comment on above: PATIENT NOT FASTINGP ERFORMED BY: DEBBIE BarriePiotr BradshawEyxyts85[address] [facility]in [place] [id number] CBC W/AUTO DIFF WBC ([id number])O rdered By: [employer] on 04-08-2018 Basophils #/vol (Bld) 0.0 {x10E3/uL} Normal 0.0-0.2 [facility] Work Phone: Comment on above: PATIENT WAS FASTINGP ERFORMED BY: [place] [id number] [facility] [id number] Basophils (Bld) [#/Vol] 0.0 10*3/uL Normal 0.0-0.2 [facility] Work Phone: Comment on above: PATIENT WAS FASTINGP ERFORMED BY: [address] [id number] Basophils Auto #/vol (Bld) 0.0 {x10E3/uL} Normal 0.0-0.2 [facility] Work Phone: Basophils/100 WBC (Bld) 1 % Normal [facility] Work Phone: Comment on above: PATIENT WAS FASTINGP ERFORMED BY: [address] [id number] Basophils/100 WBC Auto (Bld) 1 % Normal [facility] Work Phone: Eosinophils #/vol (Bld) 0.1 {x10E3/uL} Normal 0.0-0.4 [facility] Work Phone: Comment on above: PATIENT WAS FASTINGP ERFORMED BY: [address] [id number] Eosinophils (Bld) [#/Vol] 0.1 10*3/uL Normal 0.0-0.4 [facility] Work Phone: Comment on above: PATIENT WAS FASTINGP ERFORMED BY: [place] [id number] [facility] [id number] Eosinophils Auto #/vol (Bld) 0.1 {x10E3/uL} Normal 0.0-0.4 [facility] Work Phone: Eosinophils/100 WBC (Bld) 2 % Normal [facility] Work Phone: Comment on above: PATIENT WAS FASTINGP ERFORMED BY: [facility]6370 [facility] [id number] Eosinophils/100 WBC Auto (Bld) 2 % Normal [facility] Work Phone: Erythrocyte distribution width Auto Ratio (RBC) 13.5 % Normal 12.3-15.4 [facility] Work Phone: Erythrocyte distribution width Ratio (RBC) 13.5 % Normal 12.3-15.4 [facility] Work Phone: Comment on above: PATIENT WAS FASTINGP ERFORMED BY: [place] [id number] [facility] [id number] Hematocrit Auto Volume Fraction (Bld) 48.4 % Normal 37.5-51.0 [facility] Work Phone: Hematocrit Volume Fraction (Bld) 48.4 % Normal 37.5-51.0 [facility] Work Phone: Comment on above: PATIENT WAS FASTINGP ERFORMED BY: [place] [id number] [facility] [id number] Hemoglobin mass conc (Bld) 16.2 g/dL Normal 13.0-17.7 [facility] Work Phone: Comment on above: PATIENT WAS FASTINGP ERFORMED BY: [place] [id number] [facility] [id number] Immature granulocytes #/vol (Bld) 0.0 {x10E3/uL} Normal 0.0-0.1 [facility] Work Phone: Comment on above: PATIENT WAS FASTINGP ERFORMED BY: [place] [id number] [facility] [id number] Immature granulocytes (Bld) [#/Vol] 0.0 10*3/uL Normal 0.0-0.1 [facility] Work Phone: Comment on above: PATIENT WAS FASTINGP ERFORMED BY: [place] [id number] [facility] [id number] Immature granulocytes/100 WBC (Bld) 0 % Normal [facility] Work Phone: Comment on above: PATIENT WAS FASTINGP ERFORMED BY: DEBBIE Bradshawlin6370 [facility] [id number] Lymphocytes #/vol (Bld) 1.2 {x10E3/uL} Normal 0.7-3.1 [facility] Work Phone: Comment on above: PATIENT WAS FASTINGP ERFORMED BY: DEBBIE [facility]6370 [facility] [id number] Lymphocytes (Bld) [#/Vol] 1.2 10*3/uL Normal 0.7-3.1 [facility] Work Phone: Comment on above: PATIENT WAS FASTINGP ERFORMED BY: DEBBIE Bradshawlin6370 [facility] [id number] Lymphocytes Auto #/vol (Bld) 1.2 {x10E3/uL} Normal 0.7-3.1 [facility] Work Phone: Lymphocytes/100 WBC (Bld) 20 % Normal [facility] Work Phone: Comment on above: PATIENT WAS FASTINGP ERFORMED BY: DEBBIE Bradshawlin6370 [facility] [id number] Lymphocytes/100 WBC Auto (Bld) 20 % Normal [facility] Work Phone: MCH Auto Entitic mass (RBC) 32.0 pg Normal 26.6-33.0 [facility] Work Phone: MCH Entitic mass (RBC) 32.0 pg Normal 26.6-33.0 [facility] Work Phone: Comment on above: PATIENT WAS FASTINGP ERFORMED BY: DEBBIE [facility] CenterPiotr BradshawJjnuoe4729 [facility] [id number] MCHC Auto mass conc (RBC) 33.5 g/dL Normal 31.5-35.7 [facility] Work Phone: MCHC mass conc (RBC) 33.5 g/dL Normal 31.5-35.7 Comp rehensive [facility] Work Phone: Comment on above: PATIENT WAS FASTINGP ERFORMED BY: [facility]6370 [facility] [id number] MCV Auto Entitic volume (RBC) 96 fL Normal 79-97 [facility] Work Phone: MCV Entitic volume (RBC) 96 fL Normal 79-97 [facility] Work Phone: Comment on above: PATIENT WAS FASTINGP ERFORMED BY: [address] [id number] Monocytes #/vol (Bld) 0.6 {x10E3/uL} Normal 0.1-0.9 [facility] Work Phone: Comment on above: PATIENT WAS FASTINGP ERFORMED BY: [address] [id number] Monocytes (Bld) [#/Vol] 0.6 10*3/uL Normal 0.1-0.9 [facility] Work Phone: Comment on above: PATIENT WAS FASTINGP ERFORMED BY: [place] [id number] [facility] [id number] Monocytes Auto #/vol (Bld) 0.6 {x10E3/uL} Normal 0.1-0.9 [facility] Work Phone: Monocytes/100 WBC (Bld) 11 % Normal [facility] Work Phone: Comment on above: PATIENT WAS FASTINGP ERFORMED BY: [place] [id number] [facility] [id number] Monocytes/100 WBC Auto (Bld) 11 % Normal [facility] Work Phone: Neutrophils #/vol (Bld) 4.1 {x10E3/uL} Normal 1.4-7.0 [facility] Work Phone: Comment on above: PATIENT WAS FASTINGP ERFORMED BY: [place] [id number] [facility] [id number] Neutrophils (Bld) [#/Vol] 4.1 10*3/uL Normal 1.4-7.0 [facility] Work Phone: Comment on above: PATIENT WAS FASTINGP ERFORMED BY: DEBIBE [facility] Exndwj5537 [address] RoadDublin [place] [id number] Neutrophils Auto #/vol (Bld) 4.1 {x10E3/uL} Normal 1.4-7.0 [facility] Work Phone: Neutrophils/100 WBC (Bld) 66 % Normal [facility] Work Phone: Comment on above: PATIENT WAS FASTINGP ERFORMED BY: DEBBIE [facility] Zytufp3339 [address] RoadDublin [place] [id number] Neutrophils/100 WBC Auto (Bld) 66 % Normal [facility] Work Phone: Platelets #/vol (Bld) 209 {x10E3/uL} Normal 150-379 [facility] Work Phone: Comment on above: PATIENT WAS FASTINGP ERFORMED BY: DEBBIE [facility] Qjsfay3271 Jenkins Roadblin [place] [id number] Platelets (Bld) [#/Vol] 209 10*3/uL Normal 150-379 [facility] Work Phone: Comment on above: PATIENT WAS FASTINGP ERFORMED BY: DEBBIE [facility] Lehncn5121 [address] RoadDublin [place] [id number] Platelets Auto #/vol (Bld) 209 {x10E3/uL} Normal 150-379 [facility] Work Phone: RBC #/vol (Bld) 5.07 {x10E6/uL} Normal 4.14-5.80 [facility] Work Phone: Comment on above: PATIENT WAS FASTINGP ERFORMED BY: CB [facility] Zvlofu8032 [address] RoadDublin [place] [id number] RBC (Bld) [#/Vol] 5.07 10*6/uL Normal 4.14-5.80 [facility] Internal Medicine Work Phone: Comment on above: PATIENT WAS FASTINGP ERFORMED BY: DEBBIE [facility] Dpokjl5981 [address] RoadDublin [place] [id number] RBC Auto #/vol (Bld) 5.07 {x10E6/uL} Normal 4.14-5.80 [facility] Work Phone: WBC #/vol (Bld) 6.1 {x10E3/uL} Normal 3.4-10.8 Compr ensive [facility] Work Phone: Comment on above: PATIENT WAS FASTINGP ERFORMED BY: DEBBIE LabDiaviberp Xyaeeu8664 [address] RoadDublin [place] [id number] WBC (Bld) [#/Vol] 6.1 10*3/uL Normal 3.4-10.8 Compre [facility] Internal Medicine Work Phone: Comment on above: PATIENT WAS FASTINGP ERFORMED BY: DEBBIE LabDiaviberp Xsehum6018 [address] [facility] Hospitalbl[facility] [place] [id number] WBC Auto #/vol (Bld) 6.1 {x10E3/uL} Normal 3.4-10.8 [facility] Work Phone: LIPID PANEL ([id number])Ordered B y: [employer] on 04-08-2018 Cholesterol in HDL mass conc 64 mg/dL Normal [facility] Work Phone: Comment on above: Effective April 18, 2018, HDL Cholesterol reference interval will be changing to: Male Female 40 - [id number] 50 - [id number] PATIENT WAS FASTINGP ERFORMED BY: DEBBIE eCoastrp Qyazew1582 [facility] [id number] Cholesterol in LDL mass conc 74 mg/dL Normal 0-99 [facility] Work Phone: Comment on above: PATIENT WAS FASTINGP ERFORMED BY: Meggatel LabDiaviberp Stoqor1424 [address] [facility]in [place] [id number] Cholesterol in LDL/Cholesterol in HDL mass ratio 1.2 {ratio} Normal 0.0-3.6 [facility] Work Phone: Comment on above: LDL/HDL Ratio Men Wo men 1/2 Avg.Risk 1.0 1.5 Avg.Risk 3.6 3.2 2X Avg.Risk 6.2 5.0 3X Avg.Risk 8.0 6.1 PATIENT WAS FASTINGP ERFORMED BY: DEBBIE Aparicio Udvaat9978 [address] [facility] Hospitalblin [place] [id number] Cholesterol in VLDL mass conc 12 mg/dL Normal 5-40 [facility] Work Phone: Comment on above: PATIENT WAS FASTINGP ERFORMED BY: DEBBIE Eden[address] [facility] Hospitalbl[facility] [place] [id number] Cholesterol mass conc 150 mg/dL Normal 100-199 [facility] Work Phone: Comment on above: PATIENT WAS FASTINGP ERFORMED BY: LabJoy Wutyll0296 [facility] [id number] Triglyceride mass conc 62 mg/dL Normal 0-149 [facility] Work Phone: Comment on above: PATIENT WAS FASTINGP ERFORMED BY: Lisa Obtluz0761 [facility] [id number] METABOLIC PANEL, COMPREHENSI VE ([id number])Ordered By: [employer] on 04-08-2018 Albumin mass conc 4.6 g/dL Normal 3.6-4.8 Compreh ensive [facility] Work Phone: Comment on above: PATIENT WAS FASTINGP ERFORMED BY: [facility] Hfyalv5927 [address] [facility]in [place] [id number] Albumin/Globulin mass ratio 1.9 {ratio} Normal 1.2-2.2 [facility] Work Phone: Comment on above: PATIENT WAS FASTINGP ERFORMED BY: [facility]6370 [facility] [id number] ALP [Catalytic activity/Vol] 84 U/L Normal 39-117 [facility] Work Phone: Comment on above: PATIENT WAS FASTINGP ERFORMED BY: [facility] Moqkmi8625 [address] [facility] Hospitalbl[facility] [place] [id number] ALP enzyme act/vol 84 [iU]/L Normal 39-117 Compre [facility] Internal Medicine Work Phone: Comment on above: PATIENT WAS FASTINGP ERFORMED BY: [facility] Xfknyy9969 [address] RoadDublin [place] [id number] ALT [Catalytic activity/Vol] 15 U/L Normal 0-44 [facility] Work Phone: Comment on above: PATIENT WAS FASTINGP ERFORMED BY: DEBBIE LabPiotr Eden6370 [address] RoadDublin [place] [id number] ALT enzyme act/vol 15 [iU]/L Normal 0-44 Compre [facility] Internal [facility] Work Phone: Comment on above: PATIENT WAS FASTINGP ERFORMED BY: DEBBIE Aj Eden6370 [address] RoadDublin [place] [id number] AST [Catalytic activity/Vol] 19 U/L Normal 0-40 [facility] Work Phone: Comment on above: PATIENT WAS FASTINGP ERFORMED BY: DEBBIE Aj Eden6370 [address] Roadbl[address] [place] [id number] AST enzyme act/vol 19 [iU]/L Normal 0-40 [facility] Internal Medicine Work Phone: Comment on above: PATIENT WAS FASTINGP ERFORMED BY: DEBBIE Lisajean pierre BradshawZlensc4753 [address] [facility]in [place] [id number] Bilirubin mass conc 0.7 mg/dL Normal 0.0-1.2 Compr ensive [facility] Work Phone: Comment on above: PATIENT WAS FASTINGP ERFORMED BY: DEBBIE Lisajean pierre BradshawOhsdto3068 [address] [facility]in [place] [id number] Calcium mass conc 9.5 mg/dL Normal 8.6-10.2 Compreh ensive [facility] Work Phone: Comment on above: PATIENT WAS FASTINGP ERFORMED BY: DEBBIE LabPiotr BradshawDqntvj7747 [address] [facility]in [place] [id number] Chloride molar conc 101 mmol/L Normal 96-106 Compr ehensive [facility] Work Phone: Comment on above: PATIENT WAS FASTINGP ERFORMED BY: DEBBIE LabPiotr BradshawWbaupl6751 [address] RoadDublin [place] [id number] CO2 molar conc 26 mmol/L Normal 20-29 Comprehens vane Internal Medicine Work Phone: Comment on above: PATIENT WAS FASTINGP ERFORMED BY: DEBBIE [facility] Kywmzs5326 [address] RoadDublin [place] [id number] Creatinine mass conc 1.04 mg/dL Normal 0.76-1.27 Comp rehensive [facility] Work Phone: Comment on above: PATIENT WAS FASTINGP ERFORMED BY: [facility] Mdnofd8849 [facility] [id number] GFR/1.73 sq M predicted among blacks CKD-EPI vol rate/area (S/P/Bld) 85 mL/min/1.73 Normal Comprehensiv e [facility] Work Phone: Comment on above: PATIENT WAS FASTINGP ERFORMED BY: [facility]6370 [facility] [id number] GFR/1.73 sq M predicted among non-blacks CKD-EPI vol rate/area (S/P/Bld) 73 mL/min/1.73 Normal [facility] Work Phone: Comment on above: PATIENT WAS FASTINGP ERFORMED BY: [facility] Utlwtm9132 [facility] [id number] Globulin Calculated mass conc (S) 2.4 g/dL Normal 1.5-4.5 [facility] Work Phone: Globulin mass conc (S) 2.4 g/dL Normal 1.5-4.5 [facility] Work Phone: Comment on above: PATIENT WAS FASTINGP ERFORMED BY: LabCo Lmlinc3417 [facility] [id number] Glucose mass conc 90 mg/dL Normal 65-99 Compreh ensive [facility] Work Phone: Comment on above: PATIENT WAS FASTINGP ERFORMED BY: [facility] Ocamcr9524 [facility] [id number] Potassium molar conc 4.9 mmol/L Normal 3.5-5.2 Comp [facility] hospitalensive [facility] Work Phone: Comment on above: PATIENT WAS FASTINGP ERFORMED BY: [facility] Mvxlqp4508 [facility] [id number] Protein mass conc 7.0 g/dL Normal 6.0-8.5 Compreh ensive [facility] Work Phone: Comment on above: PATIENT WAS FASTINGP ERFORMED BY: DEBBIE eCoastjean pierre Nveqnf9504 [address] [facility] [id number] Sodium molar conc 141 mmol/L Normal 134-144 Compreh ensive [facility] Medicine Work Phone: Comment on above: PATIENT WAS FASTINGP ERFORMED BY: eCoast Hdrxfn4386 [address] [facility] [id number] Urea nitrogen mass conc 22 mg/dL Normal 8-27 [facility] Work Phone: Comment on above: PATIENT WAS FASTINGP ERFORMED BY: DEBBIE eCoast Mwohuk5077 [address] [facility] [id number] Urea nitrogen/Creatinine mass ratio 21 mg/mg Normal 10-24 [facility] Work Phone: Comment on above: PATIENT WAS FASTINGP ERFORMED BY: studdex70 [place] [facility] [id number] PSA (PROSTATE SPECIFIC ANTIG EN) (V76.44)Ordered By: [employer] on 04-08-2018 Prostate specific Ag mass conc 2.6 ng/mL Normal 0.0-4.0 [facility] Work Phone: Comment on above: [employer] ECLIA methodol ogy. .According to the [place] [employer], Serum PSA shoulddecrease and remain at undetectable levels after radicalprostatectomy. The AUA defines biochemical recurrence as an initialPSA value 0.2 ng/mL or greater followed by a subsequent confirmatoryPSA value 0.2 ng/mL or greater.Values obtained with different assay methods or kits cannot be usedinterchangeably. Results cannot be interpreted as absolute evidenceof the presence or absence of malignant disease. PATIENT WAS FASTINGP ERFORMED BY: 42[address]70 [address] [facility] [id number] VITAMIN B-12 (CYANOCOBALAMIN ) ([id number])Ordered By: [employer] on 04-08-2018 Cobalamin (Vitamin B12) mass conc 446 pg/mL Normal 232-1245 [facility] Work Phone: Comment on above: PATIENT WAS FASTINGP ERFORMED BY: DEBBIE [facility] Nvxvss3288 [facility] [id number] Office Visiton 12-25-2016 Documentation of current medications (procedure) Done Invalid Interpretation Code [facility] Work Phone: Fall risk assessment No Invalid Interpretation Code [facility] Work Phone: C-REACTIVE PROTEIN ([id number])Or dered By: [employer] on 11-24-2016 CRP mass conc 1.2 mg/L Normal 0.0-4.9 Comprehensi Internal Medicine Work Phone: Comment on above: PATIENT NOT FASTINGP ERFORMED BY: DEBBIE LabCoJFK Johnson Rehabilitation InstituteMnudpl8885 [facility] [id number] CBC, PLATELETS & AUT DIFF ([id number])Ordered By: [employer] on 11-24-2016 Basophils #/vol (Bld) 0.1 {x10E3/uL} Normal 0.0-0.2 [facility] Work Phone: Comment on above: PATIENT NOT FASTINGP ERFORMED BY: DEBBIE [facility] Kblihx1741 [facility] [id number] Basophils (Bld) [#/Vol] 0.1 10*3/uL Normal 0.0-0.2 [facility] Work Phone: Comment on above: PATIENT NOT FASTINGP ERFORMED BY: [facility] Puppnx7701 [facility] [id number] Basophils Auto #/vol (Bld) 0.1 {x10E3/uL} Normal 0.0-0.2 [facility] Work Phone: Basophils/100 WBC (Bld) 1 % Normal [facility] Work Phone: Comment on above: PATIENT NOT FASTINGP ERFORMED BY: [facility] Rdvzte9731 [facility] [id number] Basophils/100 WBC Auto (Bld) 1 % Normal [facility] Work Phone: Eosinophils #/vol (Bld) 0.1 {x10E3/uL} Normal 0.0-0.4 [facility] Work Phone: Comment on above: PATIENT NOT FASTINGP ERFORMED BY: DEBBIE LabCojean pierre EdenXdudew0581 [facility] [id number] Eosinophils (Bld) [#/Vol] 0.1 10*3/uL Normal 0.0-0.4 [facility] Work Phone: Comment on above: PATIENT NOT FASTINGP ERFORMED BY: DEBBIE [facility] Wajssz2125 [facility] [id number] Eosinophils Auto #/vol (Bld) 0.1 {x10E3/uL} Normal 0.0-0.4 [facility] Work Phone: Eosinophils/100 WBC (Bld) 2 % Normal [facility] Work Phone: Comment on above: PATIENT NOT FASTINGP ERFORMED BY: DEBBIE Lisa Gvokwe2903 [facility] [id number] Eosinophils/100 WBC Auto (Bld) 2 % Normal [facility] Work Phone: Erythrocyte distribution width Auto Ratio (RBC) 13.2 % Normal 12.3-15.4 [facility] Work Phone: Erythrocyte distribution width Ratio (RBC) 13.2 % Normal 12.3-15.4 [facility] Work Phone: Comment on above: PATIENT NOT FASTINGP ERFORMED BY: DEBBIE Lisa Nytxxp2961 [facility] [id number] Hematocrit Auto Volume Fraction (Bld) 45.1 % Normal 37.5-51.0 [facility] Work Phone: Hematocrit Volume Fraction (Bld) 45.1 % Normal 37.5-51.0 [facility] Work Phone: Comment on above: PATIENT NOT FASTINGP ERFORMED BY: DEBBIE [facility] Zpnsnm8994 [facility] [id number] Hemoglobin mass conc (Bld) 15.6 g/dL Normal 12.6-17.7 [facility] Work Phone: Comment on above: PATIENT NOT FASTINGP ERFORMED BY: DEBBIE Lisa Orulsx2201 Jenkins RoadDublin [place] [id number] Immature granulocytes #/vol (Bld) 0.0 {x10E3/uL} Normal 0.0-0.1 [facility] Work Phone: Comment on above: PATIENT NOT FASTINGP ERFORMED BY: DEBBIE Lisa Ksanzi9474 [address] RoadDublin [place] [id number] Immature granulocytes (Bld) [#/Vol] 0.0 10*3/uL Normal 0.0-0.1 [facility] Work Phone: Comment on above: PATIENT NOT FASTINGP ERFORMED BY: DEBBIE [facility] Shvuoo1075 [address] Roadblin [place] [id number] Immature granulocytes/100 WBC (Bld) 0 % Normal [facility] Work Phone: Comment on above: PATIENT NOT FASTINGP ERFORMED BY: [facility] Cgtwfn6803 Jenkins RoadAtrium Healthin [place] [id number] Lymphocytes #/vol (Bld) 1.0 {x10E3/uL} Normal 0.7-3.1 [facility] Work Phone: Comment on above: PATIENT NOT FASTINGP ERFORMED BY: [facility] Dsbnaa7499 [address] Roadbl[address] [place] [id number] Lymphocytes (Bld) [#/Vol] 1.0 10*3/uL Normal 0.7-3.1 [facility] Work Phone: Comment on above: PATIENT NOT FASTINGP ERFORMED BY: BarrieRichard Ville 3606970 [address] RoadDublin [place] [id number] Lymphocytes Auto #/vol (Bld) 1.0 {x10E3/uL} Normal 0.7-3.1 [facility] Work Phone: Lymphocytes/100 WBC (Bld) 22 % Normal [facility] Work Phone: Comment on above: PATIENT NOT FASTINGP ERFORMED BY: [facility] Jzovtr0680 [address] RoadDublin [place] [id number] Lymphocytes/100 WBC Auto (Bld) 22 % Normal [facility] Work Phone: MCH Auto Entitic mass (RBC) 31.9 pg Normal 26.6-33.0 [facility] Work Phone: MCH Entitic mass (RBC) 31.9 pg Normal 26.6-33.0 [facility] Work Phone: Comment on above: PATIENT NOT FASTINGP ERFORMED BY: DEBBIE LabRichard Ville 3606970 [facility] [id number] MCHC Auto mass conc (RBC) 34.6 g/dL Normal 31.5-35.7 [facility] Work Phone: MCHC mass conc (RBC) 34.6 g/dL Normal 31.5-35.7 Comp [facility] Work Phone: Comment on above: PATIENT NOT FASTINGP ERFORMED BY: [address] [id number] MCV Auto Entitic volume (RBC) 92 fL Normal 79-97 [facility] Work Phone: MCV Entitic volume (RBC) 92 fL Normal 79-97 [facility] Work Phone: Comment on above: PATIENT NOT FASTINGP ERFORMED BY: [place] [id number] [facility] [id number] Monocytes #/vol (Bld) 0.5 {x10E3/uL} Normal 0.1-0.9 [facility] Work Phone: Comment on above: PATIENT NOT FASTINGP ERFORMED BY: [place] [id number] [facility] [id number] Monocytes (Bld) [#/Vol] 0.5 10*3/uL Normal 0.1-0.9 [facility] Work Phone: Comment on above: PATIENT NOT FASTINGP ERFORMED BY: [place] [id number] [facility] [id number] Monocytes Auto #/vol (Bld) 0.5 {x10E3/uL} Normal 0.1-0.9 [facility] Work Phone: Monocytes/100 WBC (Bld) 12 % Normal [facility] Work Phone: Comment on above: PATIENT NOT FASTINGP ERFORMED BY: DEBBIE [facility] Hmigwi4110 [address] RoadDublin [place] [id number] Monocytes/100 WBC Auto (Bld) 12 % Normal [facility] Work Phone: Neutrophils #/vol (Bld) 2.8 {x10E3/uL} Normal 1.4-7.0 [facility] Work Phone: Comment on above: PATIENT NOT FASTINGP ERFORMED BY: DEBBIE [facility] Jlhurd1341 [address] RoadDublin [place] [id number] Neutrophils (Bld) [#/Vol] 2.8 10*3/uL Normal 1.4-7.0 [facility] Work Phone: Comment on above: PATIENT NOT FASTINGP ERFORMED BY: DEBBIE LabPiotr BradshawDqfmfu0588 Jenkins RoadAtrium Healthin [place] [id number] Neutrophils Auto #/vol (Bld) 2.8 {x10E3/uL} Normal 1.4-7.0 [facility] Work Phone: Neutrophils/100 WBC (Bld) 63 % Normal [facility] Work Phone: Comment on above: PATIENT NOT FASTINGP ERFORMED BY: DEBBIE LabCojaen pierre BradshawFggrpk9641 [facility] [id number] Neutrophils/100 WBC Auto (Bld) 63 % Normal [facility] Work Phone: Platelets #/vol (Bld) 220 {x10E3/uL} Normal 150-379 [facility] Work Phone: Comment on above: PATIENT NOT FASTINGP ERFORMED BY: DEBBIE [facility] Ziarwg2360 [address] RoadDublin [place] [id number] Platelets (Bld) [#/Vol] 220 10*3/uL Normal 150-379 [facility] Work Phone: Comment on above: PATIENT NOT FASTINGP ERFORMED BY: DEBBIE [facility] [id number] [facility] [id number] Platelets Auto #/vol (Bld) 220 {x10E3/uL} Normal 150-379 [facility] Work Phone: RBC #/vol (Bld) 4.89 {x10E6/uL} Normal 4.14-5.80 [facility] Internal Medicine Work Phone: Comment on above: PATIENT NOT FASTINGP ERFORMED BY: DEBBIE Bradshawlin6370 [facility] [id number] RBC (Bld) [#/Vol] 4.89 10*6/uL Normal 4.14-5.80 [facility] Internal Medicine Work Phone: Comment on above: PATIENT NOT FASTINGP ERFORMED BY: DEBBIE Bradshawlin6370 [facility] [id number] RBC Auto #/vol (Bld) 4.89 {x10E6/uL} Normal 4.14-5.80 [facility] Work Phone: WBC #/vol (Bld) 4.4 {x10E3/uL} Normal 3.4-10.8 [facility] Internal Medicine Work Phone: Comment on above: PATIENT NOT FASTINGP ERFORMED BY: DEBBIE [id number] [facility] [id number] WBC (Bld) [#/Vol] 4.4 10*3/uL Normal 3.4-10.8 [facility] Internal Medicine Work Phone: Comment on above: PATIENT NOT FASTINGP ERFORMED BY: DEBBIE [facility] [id number] [facility] [id number] WBC Auto #/vol (Bld) 4.4 {x10E3/uL} Normal 3.4-10.8 [facility] Internal Medicine Work Phone: SED RATE ERYTHROCYTE ([id number]) Ordered By: [employer] on 11-24-2016 ESR Velocity (Bld) 2 mm/h Normal 0-30 [facility] Internal Medicine Work Phone: Comment on above: PATIENT NOT FASTINGP ERFORMED BY: DEBBIE Bradshawlin6370 [facility] [id number] Office Visiton 05-27-2016 Tobacco use CPHS Never smoker Invalid Interpretation Code [email or web address] Work Phone: PSA (PROSTATE SPECIFIC ANTIG EN) (V76.44)Ordered By: [employer] on 04-03-2016 Prostate specific Ag mass conc 3.4 ng/mL Normal 0.0-4.0 [facility] Work Phone: Comment on above: Ciara ECLIA methodol ogy. .According to the [place] [employer], Serum PSA shoulddecrease and remain at undetectable levels after radicalprostatectomy. The AUA defines biochemical recurrence as an initialPSA value 0.2 ng/mL or greater followed by a subsequent confirmatoryPSA value 0.2 ng/mL or greater.Values obtained with different assay methods or kits cannot be usedinterchangeably. Results cannot be interpreted as absolute evidenceof the presence or absence of malignant disease. PATIENT WAS FASTINGP ERFORMED BY: eCoastJFK Johnson Rehabilitation InstituteCdryhs0985 [facility] [id number] Information: [id number] Lab Report: Lipid Profileon 11-22-2015 Cholesterol 139 mg/dL Normal [email or web address] Work Phone: Comment on above: <200 mg/dL Desirable 200-240 mg/dL Borderline >240 mg/dL High Risk HDL Cholesterol 58 mg/dL Normal [facility] Work Phone: Comment on above: Reference Range HDL <40 mg/dL Low HDL Cholesterol HDL >or= 60 mg/dL High HDL Cholesterol Triglyceride 69 mg/dL Normal [facility] Work Phone: Comment on above: Serum Triglycerides Reference Interval Normal <150 mg/dL Borderline high 150 - 199 mg/dL High 200 - 499 mg/dL Very High > or = 500 mg/dL LDL Cholesterol 67 mg/dL Invalid Interpretation Code 0-130 [email or web address] Work Phone: very low density lipoproteins 14 mg/dL Invalid Interpretation Code 5-40 [employer] Work Phone: Lab Report: Liver Profileon 11-22-2015 Alanine aminotransferase (ALT) 33 U/L Normal 12-78 [facility] Work Phone: Albumin 4.3 g/dL Normal 3.4-5.0 [facility] Work Phone: Alkaline phosphatase (ALP) 82 U/L Normal 50-136 [facility] Work Phone: Aspartate aminotransferase (AST) 25 U/L Normal 15-37 [facility] Work Phone: Bilirubin (direct) 0.24 mg/dL Normal 0.00-0.30 [facility] Work Phone: Bilirubin (total) 1.00 mg/dL Normal 0.20-1.00 [facility] Work Phone: Globulin 3.0 g/dL Normal 2.3-3.5 [facility] Work Phone: Protein 7.3 g/dL Normal 6.4-8.2 [facility] Work Phone: Lipid ProfileOrdered By: Nilda tem Directional Drill Operator on 11-22-2015 Cholesterol in LDL mass conc 67 mg/dL Normal 0-130 [facility] Work Phone: Cholesterol in VLDL mass conc 14 mg/dL Normal 5-40 [facility] Work Phone: Clinical Lists Update: Prelo mineral mixer 10-22-2015 Left ventricular Ejection fraction 60 % Invalid Interpretation Code [facility] Work Phone: Replaced Document: Kings Fonseca Observationson 03-13-2015 electrocardiogram interpretation Sinus Rhythm -First degree A-V block Puma = 268-RSR(V1) -nondiagnostic. BORDERLINE RHYTHM Invalid Interpretation Code [facility] Work Phone: GE use only - for LinkLogic import when terms are not otherwise specified 398 ms Invalid Interpretation Code [facility] Work Phone: P wave axis, electrocardiogram 58 deg Invalid Interpretation Code [facility] Work Phone: VA interval, electrocardiogram 268 ms Invalid Interpretation Code [facility] Work Phone: Pulse (Heart Rate) 60 /min Invalid Interpretation Code [facility] Work Phone: QRS axis, electrocardiogram 4 deg Invalid Interpretation Code [facility] Work Phone: QRS duration, electrocardiogram 84 ms Invalid Interpretation Code [facility] Work Phone: QT interval, electrocardiogram new path ms Invalid Interpretation Code [facility] Work Phone: T wave axis, electrocardiogram 46 deg Invalid Interpretation Code [facility] Work Phone: Office Visiton 08-29-2014 cardiac risk group C Invalid Interpretation Code [facility] Work Phone: General cardiovascular disease 10Y risk [#] [place] o N/A Invalid Interpretation Code [facility] Work Phone: CKMBOrdered By: System Manag er on 02-12-2014 CK.MB mass conc 1.6 ng/mL Normal 0.0-5.0 [facility] Internal Medicine Work Phone: Comment on above: CK-MB and RI Interpr etation MB Relative IndexNon-AMI 5 5 > 4 CKMB 53 U/L Normal 39-308 [facility] Work Phone: DDIMQOrdered By: System Laurel skyla on 02-12-2014 DDIMQ 0.29 {FEU/ug/m} Normal 0.27-0.49 [facility] Internal Medicine Work Phone: Comment on above: NORMAL D-Dimer level (<0.50) indicates no DVT or PE. MYOSOrdered By: System Manag er on 02-12-2014 MYOS 37 ng/mL Normal 28-72 [facility] Work Phone: Comment on above: Performed at: [address] [id number] Director: Franc Dick PhD, Phone: [phone] TROPOrdered By: System Manag er on 02-12-2014 TROP < 0.02 Normal [facility] Work Phone: Comment on above: TROPONIN-I EXPECTED VALUES <0.05 NEGATIVE0.06 - 0.59 AT RISK OF DE> OR = 0.60 SUGGEST DE CBCDOrdered By: System Manag er on 12-19-2013 Erythrocyte distribution width Auto Ratio (RBC) 12.5 % Normal 11.6-14.6 [facility] Work Phone: Hematocrit Auto Volume Fraction (Bld) 43.9 % Normal 40-54 [facility] Work Phone: Hemoglobin mass conc (Bld) 15.6 g/dL Normal 13.0-16.5 [facility] Work Phone: MCH Auto Entitic mass (RBC) 32.8 pg Abnormal 27.0-32.0 [facility] Work Phone: MCHC Auto mass conc (RBC) 35.5 {g/gl} Normal 32-36 [facility] Work Phone: MCV Auto Entitic volume (RBC) 92.4 fL Normal 80-94 [facility] Work Phone: Platelet mean volume Auto Entitic volume (Bld) 9.6 fL Normal 6.2-12.0 [facility] Work Phone: Platelets Auto #/vol (Bld) 183 10*3/uL Normal 150-450 [facility] Work Phone: RBC Auto #/vol (Bld) 4.75 {M/mm3} Normal 4.6-6.2 [facility] Work Phone: WBC Auto #/vol (Bld) 4.9 10*3/uL Normal 4.4-11.0 [facility] prehensive Internal Medicine Work Phone: CBCD 14.8 % Abnormal 0-10 [facility] Work Phone: CBCD 62.2 % Normal 47-70 [facility] Work Phone: CBCD 2.3 % Normal 0-5 [facility] Work Phone: CBCD 42.5 fL Normal 35.1-43.9 [facility] Work Phone: CBCD 0.95 {X10_3/ul} Normal 0.83-4.51 Comprehen [facility] Internal Medicine Work Phone: CBCD 3.0 {X10_3/uL} Normal 2.0-7.7 [facility] Work Phone: CBCD 19.5 % Normal 19-41 [facility] Internal Medicine Work Phone: CBCD 0.200 % Normal 0.0-0.9 [facility] Internal Medicine Work Phone: Comment on above: IG% - Immature Granu locytes (promyelocytes, myelocytes andmetamyelocytes) > 1% indicates that a LEFT SHIFT is Present. CBCD 1.0 % Normal 0-1 [facility] Internal Medicine Work Phone: CMPOrdered By: System Manage r on 12-19-2013 Albumin mass conc 4.1 g/dL Normal 3.4-5.0 [facility] Internal Medicine Work Phone: Albumin/Globulin mass ratio 1.5 {RATIO} Normal 0.9-2.4 [facility] Internal Medicine Work Phone: ALP enzyme act/vol 80 U/L Normal 45-117 [facility] Internal Medicine Work Phone: ALT enzyme act/vol 20 U/L Normal 12-78 [facility] Internal Medicine Work Phone: AST enzyme act/vol 18 U/L Normal 15-37 [facility] Internal Medicine Work Phone: Bilirubin mass conc 0.70 mg/dL Normal 0.00-1.00 [facility] Internal Medicine Work Phone: Calcium mass conc 9.3 mg/dL Normal 8.5-10.1 Compreh [facility] Internal Medicine Work Phone: Chloride molar conc 101 mmol/L Normal 98-107 [facility] Internal Medicine Work Phone: CO2 molar conc 30.0 mmol/L Normal 21.0-32.0 [facility] Internal Medicine Work Phone: Creatinine mass conc 1.0 mg/dL Normal 0.8-1.3 [facility] Work Phone: GFR/1.73 sq M predicted among non-blacks MDRD vol rate/area (S/P/Bld) 80 mL/min/{1.73_m2} Normal Comprehe nsive Internal Medicine Work Phone: Globulin Calculated mass conc (S) 2.8 g/dL Normal 2.7-4.2 [facility] Work Phone: Glucose mass conc 90 mg/dL Normal 70-110 Compreh ensive [facility] Work Phone: Potassium molar conc 4.1 mmol/L Normal 3.5-5.1 Comp rehensive Internal Medicine Work Phone: Protein mass conc 6.9 g/dL Normal 6.4-8.2 Compre[facility]ive [facility] Work Phone: Sodium molar conc 139 mmol/L Normal 136-145 [facility] Work Phone: Urea nitrogen mass conc 22 mg/dL Abnormal 7-18 [facility] Work Phone: Urea nitrogen/Creatinine mass ratio 22.0 {RATIO} Abnormal 10-20 [facility] Work Phone: CMP 8 1 Normal 5-15 [facility] Work Phone: CMP 97 mL/min Normal [facility] Work Phone: PSAOrdered By: System Manage r on 12-19-2013 PSA 3.29 ng/mL Normal 0.00-4.00 [facility] Work Phone: Comment on above: This test was perfor med using the TPSA assay method for the[employer] chemistry system. Values obtained with differentassay methods cannot be used interchangably.When changing PSA assays in the course of monitoring apatient, additional sequential testing should be carriedout to confirm baseline values. Lab Report: BMPon 09-04-2013 Calcium 9.3 mg/dL Normal 8.5-10.1 [facility] Work Phone: Chloride 103 mmol/L Normal 98-107 [facility] Work Phone: Creatinine 0.9 mg/dL Normal 0.8-1.3 [facility] Work Phone: Glucose 94 mg/dL Normal 70-110 [facility] Work Phone: Potassium 4.3 mmol/L Normal 3.5-5.1 [facility] Work Phone: Sodium 138 mmol/L Normal 136-145 [facility] Work Phone: Urea nitrogen 19 mg/dL High 7-18 [facility] Work Phone: Lab Report: CBCDon 4 Erythrocytes (RBC) 4.81 10*6/uL Normal 4.6-6.[address] [facility] [address] [facility] Work Phone: Hematocrit (HCT) 44.6 % Normal 40-54 [facility] Work Phone: Hemoglobin (HGB) 15.7 g/dL Normal 13.0-16.5 [facility] Work Phone: Platelets 216 10*3/mm3 Normal 150-450 [facility] Work Phone: WBC (Leukocytes) 6.5 10*3/uL Normal 4.4-11.0 [facility] Work Phone: Office Visiton 08-23-2013 Alcoholism counseling (procedure) no Invalid Interpretation Code [facility] Work Phone: Replaced Document: Kings Fonseca CG Observationson 12-11-2011 Pulse (Heart Rate) 382 ms Invalid Interpretation Code [facility] Work Phone: Lipase ([id number])Ordered By: Sy stem Directional Drill Operator on 05-05-2010 Lipase enzyme act/vol 49 U/L Normal 0-59 [facility] Work Phone: Comment on above: PATIENT NOT FASTINGP ERFORMED BY: LabCoJFK Johnson Rehabilitation InstituteKweuiw9692 [facility] [id number] Information: [id number] PSPUN MYOCARD PERF SPECT REST/STRE SSOrdered By: [employer] on 04-15-2007 MYOCARD PERF SPECT REST/STRESS See Note Normal [facility] Work Phone: Comment on above: Exam Number: [id number] MYOCARDIAL PERFUSION SCAN TECHNIQUEThe patient was injected with 10.9 mCi of Tc99m Cardiolite andsubsequently rest SPECT Cardiolite nuclear imaging was obtained in thehorizontal long, vertical long, and short axes views. The patientexercised on a Salvador protocol for 12 minutes achieving a peak heartrate of 150 beats per minute (92% predicted maximum heart rate) with apeak blood pressure of 164/84 mmHg and a peak MET capacity of 13 METs.The patient was injected with 33.4 mCi of Tc99m Cardiolite andsubsequently stress SPECT Cardiolite nuclear imaging was obtained inthe horizontal long, vertical long, and short axes views. GatedCardiolite study at peak stress was obtained. INTERPRETATIONRest and stress SPECT Cardiolite nuclear imaging demonstrate on thestress short axis views an area of diminished myocardialperfusion/tracer uptake in the basal anterior, basal anterior septumextending towards the mid anterior septum which appears to normalizeat rest. Otherwise, there appears to be relative uniform traceruptake and myocardial perfusion appearing within normal segments. There is end-systolic thickening and brightening. The gatedCardiolite study demonstrates myocardial thickening and inward wallmotion. The reported LVEF is 66%. The aforementioned changes aresuggestive but not diagnostic of stress-induced myocardial ischemia inthe aforementioned segments. IMPRESSION/PLAN1. Rest and stress SPECT Cardiolite nuclear imaging demonstratemyocardial perfusion changes appearing suggestive but no diagnostic(based upon visualization in only x-ray view) of stress-inducedmyocardial ischemia involving portions of the basal anterior, basalanterior septum extending into the mid anterior septum. 2. The gated Cardiolite study reports an LVEF of 66%. COMMENTThe above was discussed with Connie Wilson D.O. Reported By: MICHAEL HDZ M.D. CBCD,SMEAR DIFFOrdered By: [facility] Directional Drill Operator on 03-22-2007 Eosinophils/100 WBC Auto (Bld) 2 % Normal 0-5 [facility] Work Phone: Erythrocyte distribution width Auto Ratio (RBC) 12.9 % Normal 11.6-14.6 [facility] Work Phone: Hematocrit Auto Volume Fraction (Bld) 47.8 % Normal 40-54 [facility] Work Phone: Hemoglobin mass conc (Bld) 16.1 g/dL Normal 14.0-18.0 [facility] Internal Medicine Work Phone: Lymphocytes/100 WBC Auto (Bld) 20 % Normal 19-41 [facility] Internal Medicine Work Phone: MCH Auto Entitic mass (RBC) 31.6 pg Normal 27.0-32.0 [facility] Internal Medicine Work Phone: MCHC Auto mass conc (RBC) 33.6 g/dL Normal 32-36 [facility] Internal Medicine Work Phone: MCV Auto Entitic volume (RBC) 94.1 fL Abnormal 80-94 [facility] Internal Medicine Work Phone: Monocytes/100 WBC Auto (Bld) 3 % Normal 0-10 [facility] Internal Medicine Work Phone: Platelets Auto #/vol (Bld) 235 10*3/uL Normal 150-450 [facility] Internal Medicine Work Phone: RBC Auto #/vol (Bld) 5.08 {M/mm3} Normal 4.6-6.2 [facility] Internal [facility] Work Phone: WBC Auto #/vol (Bld) 6.0 10*3/uL Normal 4.4-11.0 [facility] Internal Medicine Work Phone: CBCD,SMEAR DIFF SeeNote Normal [facility] Work Phone: Comment on above: Result: NORM C&C Result: ADEQUATE CBCD,SMEAR DIFF 100 1 Normal Comprehen [facility] Internal Medicine Work Phone: CBCD,SMEAR DIFF 75 % Abnormal 47-70 [facility] Internal Medicine Work Phone: COMP METABOLICOrdered By: Sy stem Directional Drill Operator on 03-22-2007 Albumin mass conc 4.2 g/dL Normal 3.4-5.0 Compre[facility] Internal Medicine Work Phone: Albumin/Globulin mass ratio 1.4 {RATIO} Normal 0.9-2.4 [facility] Internal Medicine Work Phone: ALP enzyme act/vol 82 U/L Normal 50-136 Compre [facility] Internal Medicine Work Phone: ALT enzyme act/vol 29 [iU]/L Abnormal 30-65 [facility] Internal Medicine Work Phone: Anion gap 3 molar conc 8 mmol/L Normal 5-15 [facility] Internal Medicine Work Phone: AST enzyme act/vol 12 U/L Abnormal 15-37 [facility] Internal Medicine Work Phone: Bilirubin mass conc 0.64 mg/dL Normal 0.00-1.00 Compr ensive Internal Medicine Work Phone: Calcium mass conc 9.0 mg/dL Normal 8.5-10.1 Compre[facility] ensive Internal [facility] Work Phone: Chloride molar conc 100 mmol/L Normal 98-107 Compr rust Internal Medicine Work Phone: CO2 molar conc 31.1 mmol/L Normal 21.0-32.0 Comprehen [facility] Internal Medicine Work Phone: Comment on above: Please Note Refer ence Interval Change Creatinine mass conc 1.1 mg/dL Normal 0.8-1.3 [facility] Work Phone: Globulin Calculated mass conc (S) 3.1 g/dL Normal 2.7-4.2 [facility] Internal Medicine Work Phone: Comment on above: Please Note Refer ence Interval Change Glucose mass conc 78 mg/dL Normal 70-110 [facility] Work Phone: Potassium molar conc 4.7 mmol/L Normal 3.5-5.1 [facility] Work Phone: Protein mass conc 7.3 g/dL Normal 6.4-8.2 [facility] Work Phone: Sodium molar conc 139 mmol/L Normal 136-145 [facility] Work Phone: Urea nitrogen mass conc 18 mg/dL Normal 7-18 [facility] Internal Medicine Work Phone: Urea nitrogen/Creatinine mass ratio 16.4 {RATIO} Normal 10-20 [facility] Work Phone: TSHOrdered By: System Manage r on 03-22-2007 Thyrotropin Qn 0.60 {uIU/mL} Normal 0.34-4.82 Compreh ensive Internal Medicine Work Phone: GLUOrdered By: System Manage r on 03-08-2007 Glucose mass conc 85 mg/dL Normal 70-110 Compreh ensive [facility] Medicine Work Phone: LIPIDOrdered By: System Laurel skyla on 03-08-2007 Cholesterol in HDL mass conc 48 mg/dL Normal [facility] Work Phone: Comment on above: Reference Range HDL <40 mg/dL Low HDL Cholesterol HDL >or= 60 mg/dL High HDL Cholesterol Cholesterol in LDL mass conc 69 mg/dL Normal 0-130 [facility] Work Phone: Cholesterol in VLDL mass conc 12 mg/dL Normal 5-40 [facility] Work Phone: Cholesterol mass conc 129 mg/dL Normal [facility] Work Phone: Comment on above: <200 mg/dL Desirable 200-240 mg/dL Borderline >240 mg/dL High Risk Triglyceride mass conc 59 mg/dL Normal [facility] Work Phone: Comment on above: Serum Triglycerides Reference Interval Normal <150 mg/dL Borderline high 150 - 199 mg/dL High 200 - 499 mg/dL Very High > or = 500 mg/dL PSA,TOT SCREENOrdered By: Beddit stem Directional Drill Operator on 03-08-2007 Prostate specific Ag mass conc 1.86 ng/mL Normal 0.00-4.00 [facility] Work Phone: Comment on above: This test was perfor med using the TPSA method for the[employer] chemistry system.Values obtained with different assay methods cannot be usedinterchangably.When changing PSA assays in the course of monitoring apatient, additionaly sequential testing should be carriedout to confirm baseline values. Vital Signs Date Time Vital Sign Value Performing Clinician Facility 03-29-2023 13:20-0400 Body height 180.34 cm [facility]; [facility] Work Phone: 03-29-2023 13:20-0400 Body mass index (BMI) [Ratio] 24.13 kg/m2 Kimmie Gifford [facility]; [facility] Work Phone: 03-29-2023 13:20-0400 Body surface area Derived from formula 1.98 m2 Kimmie Gifford [facility] Internal Medicine; [facility] Work Phone: 03-29-2023 13:20-0400 Body temperature 98 [degF] Kimmie Gifford [facility]; [facility] Work Phone: Comment on above: Method: Thermal Scan 03-29-2023 13:20-0400 Body weight 78.47 kg Kimmie Gifford [facility]; [facility] Work Phone: 03-29-2023 13:20-0400 Diastolic blood pressure 60 mm[Hg] Kimmie Gifford [facility]; [facility] Work Phone: Comment on above: Patient Position: Sitting; Cuff Location : Left Arm; Cuff Size: Standard 03-29-2023 13:20-0400 Heart rate 55 /min Kimmie Gifford [facility]; [facility] Work Phone: Comment on above: Pattern: Regular 03-29-2023 13:20-0400 Respiratory rate 16 /min Kimmie Gifford [facility]; [facility] Work Phone: Comment on above: Pattern: Unlabored 03-29-2023 13:20-0400 SaO2% (BldA) [Mass fraction] 95 % Kimmie Gifford [facility]; [facility] Work Phone: Comment on above: Room air 03-29-2023 13:20-0400 Systolic blood pressure 118 mm[Hg] Kimmie Gifford [facility]; [facility] Work Phone: Comment on above: Patient Position: Sitting; Cuff Location : Left Arm; Cuff Size: Standard 04-06-2022 08:15-0400 Body height 180.34 cm [facility]mie [facility]wexner [facility] centermikel [facility]; [facility] Work Phone: 04-06-2022 08:15-0400 Body mass index (BMI) [Ratio] 24.13 kg/m2 Kimmie Gifford [facility]; [facility] Work Phone: 04-06-2022 08:15-0400 Body surface area Derived from formula 1.98 m2 Kimmie Gifford [facility]; [facility] Work Phone: 04-06-2022 08:15-0400 Body temperature 96.9 [degF] [facility] Work Phone: Comment on above: Method: Thermal Scan 04-06-2022 08:15-0400 Body weight 78.47 [facility]; [facility] Work Phone: 04-06-2022 08:15-0400 Diastolic blood pressure 62 mm[Hg] [facility]; [facility] Work Phone: Comment on above: Patient Position: Sitting; Cuff Location : Left Arm; Cuff Size: Standard 04-06-2022 08:15-0400 Heart rate 54 /min [facility]; [facility] Work Phone: Comment on above: Pattern: Regular 04-06-2022 08:15-0400 Respiratory rate 16 /min [facility]; [facility] Work Phone: Comment on above: Pattern: Unlabored 04-06-2022 08:15-0400 Systolic blood pressure 102 mm[Hg[facility] Work Phone: Comment on above: Patient Position: Sitting; Cuff Location : Left Arm; Cuff Size: Standard 02-25-2022 08:20-0400 Diastolic blood pressure 62 mm[Hg] Dr. Connie Wilson Work Phone: [facility] Work Phone: 02-25-2022 08:20-0400 Heart rate 58 /min Dr. Connie Wilson Work Phone: [facility] Work Phone: 02-25-2022 08:20-0400 Respiratory rate 16 /min Dr. Connie Wilson Work Phone: [facility] Work Phone: 02-25-2022 08:20-0400 SaO2% (BldA) [Mass fraction] 99 % Dr. Connie Wilson Work Phone: [facility] Work Phone: 02-25-2022 08:20-0400 Systolic blood pressure 97 mm[Hg] Dr. Connie Wilson Work Phone: [facility] Work Phone: 02-25-2022 08:00-0400 Body height 180.[address] Connie Wilson Work Phone: [facility] Work Phone: 02-25-2022 08:00-0400 Body mass index (BMI) [Ratio] 24.1 kg/m2 Dr. Connie Wilson Work Phone: [facility] Work Phone: 02-25-2022 08:00-0400 Body weight 78.[address] Connie Wilson Work Phone: [facility] Work Phone: 02-19-2022 10:07-0400 Body mass index (BMI) [Ratio] 24.1 kg/m2 Dr. Connie Wilson Work Phone: [facility] Work Phone: 02-19-2022 10:07-0400 Body weight 78.[address] Sandoval Fast Work Phone: [facility] Work Phone: 02-19-2022 10:07-0400 Diastolic blood pressure 62 mm[Hg] Dr. Connie Wilson Work Phone: [facility] Work Phone: 02-19-2022 10:07-0400 Heart rate 56 /min Dr. Connie Wilson Work Phone: [facility] Work Phone: 02-19-2022 10:07-0400 Respiratory rate 16 /min Dr. Connie Wilson Work Phone: [facility] Work Phone: 02-19-2022 10:07-0400 Systolic blood pressure 100 mm[Hg] Dr. Connie Wilson Work Phone: [facility] Work Phone: 04-01-2021 08:50-0400 Body height 180.34 cm Kimmie [facility]; [facility] Work Phone: 04-01-2021 08:50-0400 Body mass index (BMI) [Ratio] 23.29 kg/m2 Kimmie Gifford [facility]; [facility] Work Phone: 04-01-2021 08:50-0400 Body surface area Derived from formula 1.95 m2 Kimmie Gifford [facility]; [facility] Work Phone: 04-01-2021 08:50-0400 Body temperature 97.2 [degF] Kimmie Gifford [facility]; [facility] Work Phone: Comment on above: Method: Thermal Scan 04-01-2021 08:50-0400 Body weight 75.75 kg Kimmie Gifford [facility]; [facility] Work Phone: 04-01-2021 08:50-0400 Diastolic blood pressure 62 mm[Hg] Kimmie Gifford [facility]; [facility] Work Phone: Comment on above: Patient Position: Sitting; Cuff Location : Left Arm; Cuff Size: Standard 04-01-2021 08:50-0400 Heart rate 68 /min Kimmielexx Gifford [facility]; [facility] Work Phone: Comment on above: Pattern: Regular 04-01-2021 08:50-0400 Respiratory rate 16 /min Kimmie Gifford [facility]; [facility] Work Phone: Comment on above: Pattern: Unlabored 04-01-2021 08:50-0400 Systolic blood pressure 116 mm[Hg] Kimmie Gifford [facility]; [facility] Work Phone: Comment on above: Patient Position: Sitting; Cuff Location : Left Arm; Cuff Size: Standard 03-11-2021 09:21-0400 Body height 180.34 cm Kimmie Gifford [facility]; [facility] Work Phone: 03-11-2021 09:21-0400 Body mass index (BMI) [Ratio] 23.15 kg/m2 Kimmie Gifford [facility]; [facility] Work Phone: 03-11-2021 09:21-0400 Body surface area Derived from formula 1.95 m2 Kimmie Gifford [facility]; [facility] Work Phone: 03-11-2021 09:21-0400 Body weight 75.3 kg Kimmie Gifford [facility]; [facility] Work Phone: 03-11-2021 09:21-0400 Diastolic blood pressure 58 mm[Hg] Kimmie Gifford [facility]; [facility] Work Phone: Comment on above: Patient Position: Sitting; Cuff Location : Left Arm; Cuff Size: Standard 03-11-2021 09:21-0400 Heart rate 52 /min Kimmie Gifford [facility]; [facility] Work Phone: Comment on above: Pattern: Regular 03-11-2021 09:21-0400 Respiratory rate 16 /min Kimmie Gifford [facility]; [facility] Work Phone: Comment on above: Pattern: Unlabored 03-11-2021 09:21-0400 Systolic blood pressure 98 mm[Hg] Kimmie Gifford [facility]; [facility] Work Phone: Comment on above: Patient Position: Sitting; Cuff Location : Left Arm; Cuff Size: Standard 04-09-2020 11:00-0400 BMI (Body Mass Index) 23.15 kg/m2 Kimmie Gifford [facility] Internal Medicine Work Phone: 04-09-2020 11:00-0400 Body Temperature 96.9 [degF] Kimmie Gifford [facility] Internal Medicine Work Phone: Comment on above: Method: Thermal Scan 04-09-2020 11:00-0400 Body weight 75.3 kg Kimmie Gifford [facility] Internal Medicine Work Phone: 04-09-2020 11:00-0400 BP Diastolic 58 mm[Hg] [facility] Work Phone: Comment on above: Patient Position: Sitting; Cuff Location : Left Arm; Cuff Size: Standard 04-09-2020 11:00-0400 BP Systolic 98 mm[Hg] [facility] Work Phone: Comment on above: Patient Position: Sitting; Cuff Location : Left Arm; Cuff Size: Standard 04-09-2020 11:00-0400 BSA (Body Surface Area) 1.95 m2 Kimmie Gifford [facility] Internal Medicine Work Phone: 04-09-2020 11:00-0400 Height 180.34 cm Kimmie Gifford [facility] Internal Medicine Work Phone: 04-09-2020 11:00-0400 Pulse (Heart Rate) 61 /min Kimmie Gifford [facility] Internal Medicine Work Phone: Comment on above: Pattern: Regular 04-09-2020 11:00-0400 Pulse Oximetry 95 % Connie [facility] Internal Medicine Work Phone: Comment on above: Room air 04-09-2020 11:00-0400 Respiratory Rate 16 /min Kimmie Gifford [facility] Internal Medicine Work Phone: Comment on above: Pattern: Unlabored 04-09-2020 11:00-0400 SaO2% (BldA) [Mass fraction] 95 % [facility] Work Phone: Comment on above: Room air 03-06-2020 09:59-0400 BMI (Body Mass Index) 23.15 kg/m2 Connie A Fast DO Work Phone: [facility] Work Phone: 03-06-2020 09:59-0400 Body Temperature 97.7 [degF] Connie A Fast DO Work Phone: [facility] Work Phone: Comment on above: Method: Oral 03-06-2020 09:59-0400 Body weight 75.3 kg Connie A Fast DO Work Phone: [facility] Work Phone: 03-06-2020 09:59-0400 BP Diastolic 68 mm[Hg] Connie A Fast DO Work Phone: [facility] Work Phone: Comment on above: Patient Position: Sitting 03-06-2020 09:59-0400 BP Systolic 100 mm[Hg] Connie A Fast DO Work Phone: [facility] Work Phone: Comment on above: Patient Position: Sitting 03-06-2020 09:59-0400 BSA (Body Surface Area) 1.95 m2 Connie A Fast DO Work Phone: [facility] Work Phone: 03-06-2020 09:59-0400 Height 180.34 cm Connie A Fast DO Work Phone: [facility] Work Phone: 03-06-2020 09:59-0400 Pulse (Heart Rate) 74 /min Connie A Fast DO Work Phone: [facility] Work Phone: Comment on above: Pattern: Regular 03-06-2020 09:59-0400 Pulse Oximetry 98 % Connie Fast [facility] Work Phone: Comment on above: Room air 03-06-2020 09:59-0400 Respiratory Rate 18 /min Connie A Fast DO Work Phone: [facility] Work Phone: 03-06-2020 09:59-0400 SaO2% (BldA) [Mass fraction] 98 % Connie A Fast DO Work Phone: [facility] Work Phone: Comment on above: Room air 12-01-2019 09:39-0400 BMI (Body Mass Index) 24.97 kg/m2 Radha Slarb [address] [employer]PA[employer] [facility] Work Phone: 12-01-2019 09:39-0400 Body Temperature 97.7 [degF] Radha Sl[address] LIGHT REPAIRER [facility] Work Phone: 12-01-2019 09:39-0400 Body weight 78.[address] [employer]IGHT REPAIRER [facility] Work Phone: 12-01-2019 09:39-0400 BP Diastolic 64 mm[Hg] Radha Sl[address] LIGHT REPAIR[employer] [facility] Work Phone: Comment on above: Patient Position: Sitting; Cuff Location : Left Arm; Cuff Size: Standard 12-01-2019 09:39-0400 BP Systolic 108 mm[Hg] Radha Sl[address] LIGHT REPAIRER [facility] Work Phone: Comment on above: Patient Position: Sitting; Cuff Location : Left Arm; Cuff Size: Standard 12-01-2019 09:39-0400 BSA (Body Surface Area) 1.[address] LIGHT REPAIRER [facility] Work Phone: 12-01-2019 09:39-0400 Height 177[address] LIGHT REPAIRER [facility] Work Phone: 12-01-2019 09:39-0400 Pulse (Heart Rate) 62 /min Radha [address] LIGHT REPAIRER [facility] Work Phone: Comment on above: Pattern: Regular 12-01-2019 09:39-0400 Pulse Oximetry 99 % Connie Fast [facility] Work Phone: Comment on above: Room air 12-01-2019 09:39-0400 Respiratory Rate 16 /min Radha Torres [facility] Internal Medicine Work Phone: Comment on above: Pattern: Unlabored 12-01-2019 09:39-0400 SaO2% (BldA) [Mass fraction] 99 % aRdha Torres [facility] Internal Medicine Work Phone: Comment on above: Room air 03-21-2019 09:47-0400 BMI (Body Mass Index) 25.25 kg/m2 Kimmie Gifford [facility] Internal Medicine Work Phone: 03-21-2019 09:47-0400 Body Temperature 97.4 [degF] Kimmie Gifford [facility] Internal Medicine Work Phone: Comment on above: Method: Temporal 03-21-2019 09:47-0400 Body weight 79.83 kg Kimmie Gifford [facility] Internal Medicine Work Phone: 03-21-2019 09:47-0400 BP Diastolic 70 mm[Hg] Kimmie Gifford [facility] Internal Medicine Work Phone: Comment on above: Patient Position: Sitting; Cuff Location : Left Arm; Cuff Size: Standard 03-21-2019 09:47-0400 BP Systolic 115 mm[Hg] Kimmie Gifford [facility] Internal Medicine Work Phone: Comment on above: Patient Position: Sitting; Cuff Location : Left Arm; Cuff Size: Standard 03-21-2019 09:47-0400 BSA (Body Surface Area) 1.98 m2 Kimmie Gifford [facility] Internal Medicine Work Phone: 03-21-2019 09:47-0400 Height 177.8 cm Kimmie Gifford [facility] Internal Medicine Work Phone: 03-21-2019 09:47-0400 Pulse (Heart Rate) 70 /min Kimmie Gifford [facility] Internal Medicine Work Phone: Comment on above: Pattern: Regular 03-21-2019 09:47-0400 Respiratory Rate 16 /min Kimmie Gifford [facility] Internal Medicine Work Phone: Comment on above: Pattern: Unlabored 12-27-2018 09:27-0400 BMI (Body Mass Index) 25.25 kg/m2 IMTIAZ Shore LPN [facility] Internal Medicine Work Phone: 12-27-2018 09:27-0400 Body Temperature 97.9 [degF] IMTIAZ Shore LPN [facility] Internal Medicine Work Phone: Comment on above: Method: Temporal 12-27-2018 09:27-0400 Body weight 79.83 kg IMTIAZ Shore LPN [facility] Internal Medicine Work Phone: 12-27-2018 09:27-0400 BP Diastolic 64 mm[Hg] IMTIAZ Shore LPN [facility] Internal Medicine Work Phone: Comment on above: Patient Position: Sitting; Cuff Location : Left Arm; Cuff Size: Standard 12-27-2018 09:27-0400 BP Systolic 94 mm[Hg] IMTIAZ Shore LPN [facility] Internal Medicine Work Phone: Comment on above: Patient Position: Sitting; Cuff Location : Left Arm; Cuff Size: Standard 12-27-2018 09:27-0400 BSA (Body Surface Area) 1.98 m2 IMTIAZ Shore LPN [facility] Internal Medicine Work Phone: 12-27-2018 09:27-0400 Height 177.8 cm IMTIAZ Shore LPN [facility] Internal Medicine Work Phone: 12-27-2018 09:27-0400 Pulse (Heart Rate) 74 /min IMTIAZ Shore LPN [facility] Internal Medicine Work Phone: Comment on above: Pattern: Regular 12-27-2018 09:27-0400 Pulse Oximetry 98 % Connie Fast [facility] Work Phone: Comment on above: Room air 12-27-2018 09:27-0400 Respiratory Rate 20 /min IMTIAZ Shore LPN [facility] Internal Medicine Work Phone: Comment on above: Pattern: Unlabored 12-27-2018 09:27-0400 SaO2% (BldA) [Mass fraction] 98 % IMTIAZ Shore LPN [facility] Internal Medicine Work Phone: Comment on above: Room air 12-14-2018 13:25-0400 BMI (Body Mass Index) 25.31 kg/m2 Kimmie Gifford [facility] Internal Medicine Work Phone: 12-14-2018 13:25-0400 Body Temperature 97.1 [degF] Kimmie Gifford [facility] Internal Medicine Work Phone: Comment on above: Method: Temporal 12-14-2018 13:25-0400 Body weight 80 kg Kimmie Gifford [facility] Internal Medicine Work Phone: 12-14-2018 13:25-0400 BP Diastolic 62 mm[Hg] Kimmie Gifford [facility] Internal Medicine Work Phone: Comment on above: Patient Position: Sitting; Cuff Location : Left Arm; Cuff Size: Standard 12-14-2018 13:25-0400 BP Systolic 98 mm[Hg] Kimmie Gifford [facility] Internal Medicine Work Phone: Comment on above: Patient Position: Sitting; Cuff Location : Left Arm; Cuff Size: Standard 12-14-2018 13:25-0400 BSA (Body Surface Area) 1.98 m2 Kimmie Gifford [facility] Internal Medicine Work Phone: 12-14-2018 13:25-0400 Height 177.8 cm Kimmie Gifford [facility] Internal Medicine Work Phone: 12-14-2018 13:25-0400 Pulse (Heart Rate) 70 /min Kimmie Gifford [facility] Internal Medicine Work Phone: Comment on above: Pattern: Regular 12-14-2018 13:25-0400 Respiratory Rate 16 /min Kimmie Gifford [facility] Internal Medicine Work Phone: Comment on above: Pattern: Unlabored 12-14-2018 13:25-0400 Weight 80 kg Connie Fermin [facility] Internal Medicine Work Phone: 04-08-2018 10:27-0400 BMI (Body Mass Index) 25.31 kg/m2 Kimmie Gifford [facility] Internal Medicine Work Phone: 04-08-2018 10:27-0400 Body Temperature 97.8 [degF] Kimmie Gifford [facility] Internal Medicine Work Phone: Comment on above: Method: Temporal 04-08-2018 10:27-0400 Body weight 80 kg Kimmie Gifford [facility] Internal Medicine Work Phone: 04-08-2018 10:27-0400 BP Diastolic 64 mm[Hg] Kimmie Gifford [facility] Internal Medicine Work Phone: Comment on above: Patient Position: Sitting; Cuff Location : Left Arm; Cuff Size: Standard 04-08-2018 10:27-0400 BP Systolic 115 mm[Hg] Kimmie Gifford [facility] Internal Medicine Work Phone: Comment on above: Patient Position: Sitting; Cuff Location : Left Arm; Cuff Size: Standard 04-08-2018 10:27-0400 BSA (Body Surface Area) 1.98 m2 Kimmie Gifford [facility] Internal Medicine Work Phone: 04-08-2018 10:27-0400 Height 177.8 cm Kimmie Gifford [facility] Internal Medicine Work Phone: 04-08-2018 10:27-0400 Pulse (Heart Rate) 68 /min Kimmie Gifford [facility] Internal Medicine Work Phone: Comment on above: Pattern: Regular 04-08-2018 10:27-0400 Respiratory Rate 16 /min Kimmie Gifford [facility] Internal Medicine Work Phone: Comment on above: Pattern: Unlabored 04-08-2018 10:27-0400 Weight 80 kg Netta Lawler [facility] Internal Medicine Work Phone: 04-04-2018 10:59-0400 BMI (Body Mass Index) 25.16 kg/m2 Cookie William RN [facility] Work Phone: Comment on above: [facility] test 04-04-2018 10:59-0400 Body weight 79.55 kg Cookie William RN [facility] Work Phone: Comment on above: [facility] had glaucoma test 04-04-2018 10:59-0400 BP Diastolic 78 mm[Hg] Cookie William RN [facility] Work Phone: Comment on above: Patient Position: Sitting; Cuff Location : Left Arm; Cuff Size: Standard [facility] test 04-04-2018 10:59-0400 BP Systolic 118 mm[Hg] Cookie William RN [facility] Work Phone: Comment on above: Patient Position: Sitting; Cuff Location : Left Arm; Cuff Size: Standard [facility] test 04-04-2018 10:59-0400 BSA (Body Surface Area) 1.97 m2 Cookie William RN [facility] Work Phone: Comment on above: [facility] had glaucoma test 04-04-2018 10:59-0400 Height 177.8 cm Cookie William RN [facility] Work Phone: Comment on above: [facility] and had glaucoma test 04-04-2018 10:59-0400 Pulse (Heart Rate) 67 /min Cookie William RN [facility] Work Phone: Comment on above: Pattern: Regular [facility] test 04-04-2018 10:59-0400 Pulse Oximetry 98 % Netta Lawler [facility] Work Phone: Comment on above: Room air [facility] test 04-04-2018 10:59-0400 Respiratory Rate 18 /min Cookie William RN [facility] Work Phone: Comment on above: Pattern: Unlabored hearing [facility] test 04-04-2018 10:59-0400 SaO2% (BldA) [Mass fraction] 98 % Cookie William RN [facility] Work Phone: Comment on above: Room air [facility] test 04-04-2018 10:59-0400 Weight 79.55 kg Netta Lawler [facility] Work Phone: Comment on above: [facility] and had glaucoma test 06-18-2017 12:11-0500 BMI (Body Mass Index) 25.11 kg/m2 Radha Slarb [address] L[employer] REPAIRER [facility] Work Phone: 06-18-2017 12:11-0500 Body Temperature 97.1 [degF] Radha Slarb [facility] LIGHT REPAIRER [facility] Work Phone: 06-18-2017 12:11-0500 Body weight 79.[address] LIGHT REPAIRER [facility] Work Phone: 06-18-2017 12:11-0500 BP Diastolic 72 mm[Hg] Radha Slarb [facility] LIGHT REPAIRER [facility] Work Phone: Comment on above: Patient Position: Sitting; Cuff Location : Left Arm; Cuff Size: Standard 06-18-2017 12:11-0500 BP Systolic 116 mm[Hg] Radha Slarb [address] LIGHT REPAIRER [facility] Work Phone: Comment on above: Patient Position: Sitting; Cuff Location : Left Arm; Cuff Size: Standard 06-18-2017 12:11-0500 BSA (Body Surface Area) 1.[address] LIGHT REPAIRER [facility] Work Phone: 06-18-2017 12:11-0500 Height 177.[address] LIGHT REPAIRER [facility] Work Phone: 06-18-2017 12:11-0500 Pulse (Heart Rate) 64 /min Radha [address] LIGHT REPAIRER [facility] Medicine Work Phone: Comment on above: Pattern: Regular 06-18-2017 12:11-0500 Pulse Oximetry 98 % Netta Lawler [facility] Work Phone: Comment on above: Room air 06-18-2017 12:11-0500 Respiratory Rate 16 /min Radha Sl[address] LIGHT REPAIRER [facility] Work Phone: Comment on above: Pattern: Unlabored 06-18-2017 12:11-0500 SaO2% (BldA) [Mass fraction] 98 % Radha Slarb [address] LIGHT REPAIRER [facility] Work Phone: Comment on above: Room air 06-18-2017 12:11-0500 Weight 79.38 kg Netat Lawler [facility] Work Phone: 12-25-2016 13:13-0400 BMI (Body Mass Index) 23.71 kg/m2 Ashish [facility] Work Phone: 12-25-2016 13:13-0400 BP Diastolic 60 mm[Hg] Ginotalshreyas Samuels [facility] Work Phone: 12-25-2016 13:13-0400 BP Systolic 90 mm[Hg] Ashish Samuels [facility] Work Phone: 12-25-2016 13:13-0400 Height 180.34 cm Ashish Samuels [facility] Work Phone: 12-25-2016 13:13-0400 Pulse (Heart Rate) 60 /min Ashish Samuels [facility] Work Phone: 12-25-2016 13:13-0400 Respiratory Rate 16 /min Ashish Samuels [facility] Work Phone: 12-25-2016 13:13-0400 Weight 77.11 kg Ashish Samuels [facility] Work Phone: 11-24-2016 08:28-0400 BMI (Body Mass Index) 24.61 kg/m2 Radha Slarb [address] LIGHT REPAIRER [facility] Internal Medicine Work Phone: 11-24-2016 08:040 Body Temperature 97.6 [degF] Radha Slarb [facility] LIGHT REPAIRER [facility] Work Phone: 11-24-2016 [id number] Body weight 77.[address] LIGHT REPAIRER [facility] Work Phone: 11-24-2016 08:28-0400 BP Diastolic 62 mm[Hg] Radha Slarb [facility] LIGHT REPAIRER [facility] Work Phone: Comment on above: Patient Position: Sitting; Cuff Location : Left Arm; Cuff Size: Standard 11-24-2016 08:28-0400 BP Systolic 106 mm[Hg] Radha Torres [facility] LIGHT REPAIRER [facility] Work Phone: Comment on above: Patient Position: Sitting; Cuff Location : Left Arm; Cuff Size: Standard 11-24-2016 [id number] BSA (Body Surface Area) 1.[address] LIGHT REPAIRER [facility] Work Phone: 11-24-2016 [id number] Height 177.[address] LIGHT REPAIRER [facility] Work Phone: 11-24-2016 08:28-0400 Pulse (Heart Rate) 81 /min Radha Torres LPN [facility] Work Phone: Comment on above: Pattern: Regular 11-24-2016 08:28-0400 Pulse Oximetry 96 % Netta Lawler [facility] Work Phone: Comment on above: Room air 11-24-2016 08:28-0400 Respiratory Rate 16 /min Radha Dev[address] LIGHT REPAIRER [facility] Work Phone: Comment on above: Pattern: Unlabored 11-24-2016 08:28-0400 SaO2% (BldA) [Mass fraction] 96 % Radha Beltr[address] LIGHT REPAIRER [facility] Work Phone: Comment on above: Room air 11-24-2016 08:28-0400 Weight 77.79 kg Netta Lawler [facility] Work Phone: 05-27-2016 13:27-0500 BSA (Body Surface Area) 1.99 m2 [facility]ish [facility] Work Phone: 04-03-2016 [id number] BMI (Body Mass Index) 24.39 kg/m2 Cookie William RN [facility] Work Phone: Comment on above: hearing [facility] and had a glaucoma test done 04-03-2016 09:11-0400 Body weight 77.11 kg Cookie William RN [facility] Work Phone: Comment on above: hearing [facility] and had a glaucoma test done 04-03-2016 09:11-0400 BP Diastolic 80 mm[Hg] Cookie William RN [facility] Work Phone: Comment on above: Patient Position: Sitting; Cuff Location : Left Arm; Cuff Size: [facility] test [facility] 04-03-2016 09:11-0400 BP Systolic 118 mm[Hg] Cookie William RN [facility] Work Phone: Comment on above: Patient Position: Sitting; Cuff Location : Left Arm; Cuff Size: Standard [facility] a [facility] test done 04-03-2016 09:11-0400 BSA (Body Surface Area) 1.95 m2 Cookie William RN [facility] Work Phone: Comment on above: hearing [facility] [place] and had a glaucoma test done 04-03-2016 09:11-0400 Height 177.8 cm Cookie William RN [facility] Work Phone: Comment on above: hearing [facility] [place] and had a glaucoma test done 04-03-2016 09:11-0400 Pulse (Heart Rate) 56 /min Cookie William RN [facility] Work Phone: Comment on above: Pattern: Regular hearing [facility] and had a glaucoma test done 04-03-2016 09:11-0400 Pulse Oximetry 98 % Netta Lawler [facility] Work Phone: Comment on above: Room air [facility] had a glaucoma test done 04-03-2016 09:11-0400 Respiratory Rate 18 /min Cookie William RN [facility] Work Phone: Comment on above: Pattern: Unlabored hearing [facility] and had a glaucoma test done 04-03-2016 09:11-0400 SaO2% (BldA) [Mass fraction] 98 % Cookie William RN [facility] Work Phone: Comment on above: Room air hearing [facility] and had a glaucoma test done 04-03-2016 09:11-0400 Weight 77.11 kg Netta Lawler [facility] Work Phone: Comment on above: hearing [facility] and had a glaucoma test done 05-21-2014 14:00-0500 BMI (Body Mass Index) 24.54 kg/m2 Celina Balderrama RN [facility] Work Phone: 05-21-2014 14:00-0500 Body Temperature 97 [degF] Celina Balderrama RN [facility] Work Phone: Comment on above: Method: Temporal 05-21-2014 14:00-0500 Body weight 77.57 kg Celina Balderrama RN [facility] Work Phone: 05-21-2014 14:00-0500 BP Diastolic 72 mm[Hg] Celina Balderrama RN [facility] Work Phone: Comment on above: Patient Position: Sitting; Cuff Location : Left Arm; Cuff Size: Standard 05-21-2014 14:00-0500 BP Systolic 122 mm[Hg] Celina Balderrama RN [facility] Work Phone: Comment on above: Patient Position: Sitting; Cuff Location : Left Arm; Cuff Size: Standard 05-21-2014 14:00-0500 BSA (Body Surface Area) 1.95 m2 Celina Balderrama RN [facility] Work Phone: 05-21-2014 14:00-0500 Height 177.8 cm Celina Balderrama RN [facility] Work Phone: 05-21-2014 14:00-0500 Pulse (Heart Rate) 78 /min Celina Balderrama RN [facility] Work Phone: Comment on above: Pattern: Regular 05-21-2014 14:00-0500 Pulse Oximetry 97 % Netta Monaeon [facility] Work Phone: Comment on above: Room air 05-21-2014 14:00-0500 Respiratory Rate 16 /min Celina L Long RN [facility] Work Phone: Comment on above: Pattern: Unlabored 05-21-2014 14:00-0500 SaO2% (BldA) [Mass fraction] 97 % Celina Balderrama RN [facility] Work Phone: Comment on above: Room air 05-21-2014 14:00-0500 Weight 77.57 kg Netta Lawler [facility] Work Phone: 02-20-2014 14:14-0400 BMI (Body Mass Index) 23.82 kg/m2 Jyoti Gutierrez [facility] [employer]PA[employer] [facility] Work Phone: 02-20-2014 14:140400 Body Temperature 98 [degF] Jyoti Gutierrez [facility] [employer]IGHT REPAIR[employer] [facility] Work Phone: Comment on above: Method: Oral 02-20-2014 14:14 Body weight 75.[address] [employer] REPA[employer] [facility] Work Phone: 02-20-2014 14:14-0400 BP Diastolic 58 mm[Hg] Jyoti Gutierrez LPN [facility] Work Phone: Comment on above: Patient Position: Sitting; Cuff Location : Left Arm; Cuff Size: Standard 02-20-2014 14:14-0400 BP Systolic 102 mm[Hg] Jyoti Gutierrez LPN [facility] Work Phone: Comment on above: Patient Position: Sitting; Cuff Location : Left Arm; Cuff Size: Standard 02-20-2014 14:140400 BSA (Body Surface Area) 1.[address] [employer] REPA[employer] [facility] Work Phone: 02-20-2014 14:140400 Height 177.8 cm Jyoti Gutierrez LPN [facility] Work Phone: 02-20-2014 14:14-0400 Pulse (Heart Rate) 57 /min Jyoti Gutierrez LPN [facility] Work Phone: Comment on above: Pattern: Regular 02-20-2014 14:140400 Pulse Oximetry 98 % Netta Lawler [facility] Work Phone: Comment on above: Room air 02-20-2014 14:14-0400 Respiratory Rate 16 /min Jyoti Gutierrez LPN [facility] Work Phone: 02-20-2014 14:14-0400 SaO2% (BldA) [Mass fraction] 98 % Jyoti Gutierrez LPN [facility] Work Phone: Comment on above: Room air 02-20-2014 14:14-0400 Weight 75.3 kg Netta Lawler [facility] Work Phone: 02-12-2014 11:41-0400 BMI (Body Mass Index) 23.82 kg/m2 Jyoti Gutierrez LPN [facility] Work Phone: 02-12-2014 11:41-0400 Body Temperature 98.2 [degF] Jyoti Gutierrez LPN [facility] Work Phone: Comment on above: Method: Oral 02-12-2014 11:41-0400 Body weight 75.3 kg Jyoti Gutierrez LPN [facility] Work Phone: 02-12-2014 11:41-0400 BP Diastolic 62 mm[Hg] Jyoti Gutierrez LPN [facility] Work Phone: Comment on above: Patient Position: Sitting; Cuff Location : Left Arm; Cuff Size: Standard 02-12-2014 11:41-0400 BP Systolic 100 mm[Hg] Jyoti Gutierrez LPN [facility] Work Phone: Comment on above: Patient Position: Sitting; Cuff Location : Left Arm; Cuff Size: Standard 02-12-2014 11:41-0400 BSA (Body Surface Area) 1.93 m2 Jyoti Gutierrez LPN [facility] Work Phone: 02-12-2014 11:41-0400 Height 177.8 cm Jyoti Gutierrez LPN [facility] Work Phone: 02-12-2014 11:41-0400 Pulse (Heart Rate) 54 /min Jyoti Gutierrez LPN [facility] Work Phone: Comment on above: Pattern: Regular 02-12-2014 11:41-0400 Pulse Oximetry 99 % Netta Lawler [facility] Work Phone: Comment on above: Room air 02-12-2014 11:41-0400 Respiratory Rate 16 /min Jyoti Gutierrez LPN [facility] Work Phone: 02-12-2014 11:41-0400 SaO2% (BldA) [Mass fraction] 99 % Jyoti Gutierrez LPN [facility] Work Phone: Comment on above: Room air 02-12-2014 11:41-0400 Weight 75.3 kg Netta Lawler [facility] Work Phone: 11-27-2013 10:27-0400 BMI (Body Mass Index) 23.82 kg/m2 Jyoti Gutierrez LPN [facility] Work Phone: 11-27-2013 10:27-0400 Body Temperature 97.2 [degF] Jyoti Gutierrez [facility] LIGHT REPAIRER [facility] Work Phone: Comment on above: Method: Oral 11-27-2013 10:27-0400 Body weight 75.3 kg Jyoti Gutierrez LPN [facility] Work Phone: 11-27-2013 10:27-0400 BP Diastolic 74 mm[Hg] Jyoti Gutierrez [facility] LIGHT REPAIRER [facility] Work Phone: Comment on above: Patient Position: Sitting; Cuff Location : Left Arm; Cuff Size: Standard 11-27-2013 10:27-0400 BP Systolic 122 mm[Hg] Jyoti Gutierrez LPN [facility] Work Phone: Comment on above: Patient Position: Sitting; Cuff Location : Left Arm; Cuff Size: Standard 11-27-2013 10:27-0400 BSA (Body Surface Area) 1.93 m2 Jyoti Gutierrez LPN [facility] Work Phone: 11-27-2013 10:27-0400 Height 177.[address] L[employer] REPAIR[employer] [facility] Work Phone: 11-27-2013 10:27-0400 Pulse (Heart Rate) 65 /min Jyoti Gutierrez JASS [facility] Internal Medicine Work Phone: Comment on above: Pattern: Regular 11-27-2013 10:27-0400 Pulse Oximetry 99 % Netta Lawler [facility] Internal [facility] Work Phone: Comment on above: Room air 11-27-2013 10:27-0400 Respiratory Rate 16 /min Jyoti Gutierrez [facility]ASS [facility] Work Phone: 11-27-2013 10:27-0400 SaO2% (BldA) [Mass fraction] 99 % Jyoti Gutierrez JASS [facility] Work Phone: Comment on above: Room air 11-27-2013 10:27-0400 Weight 75.3 kg Netta Lawler [facility] Work Phone: 08-28-2013 10:26-0500 BMI (Body Mass Index) 23.82 kg/m2 Emili Reece [facility] Internal Medicine Work Phone: 08-28-2013 10:26-0500 Body Temperature 97.8 [degF] Emili Reece [facility] Internal [facility] Work Phone: 08-28-2013 10:26-0500 Body weight 75.3 kg Emili Reece [facility] Work Phone: 08-28-2013 10:26-0500 BP Diastolic 48 mm[Hg] Emili Reece [facility] Work Phone: Comment on above: Patient Position: Sitting; Cuff Location : Left Arm; Cuff Size: Large 08-28-2013 10:26-0500 BP Systolic 90 mm[Hg] Emili Reece [facility] Internal [facility] Work Phone: Comment on above: Patient Position: Sitting; Cuff Location : Left Arm; Cuff Size: Large 08-28-2013 10:26-0500 BSA (Body Surface Area) 1.93 m2 Emili Reece [facility] Internal [facility] Work Phone: 08-28-2013 10:26-0500 Height 177.8 cm Emili Jacqueskorey [facility] Internal [facility] Work Phone: 08-28-2013 10:26-0500 Pulse (Heart Rate) 52 /min [facility] Work Phone: Comment on above: Pattern: Regular 08-28-2013 10:26-0500 Respiratory Rate 16 /min Emili Chevy [facility] Internal [facility] Work Phone: Comment on above: Pattern: Unlabored 08-28-2013 10:26-0500 Weight 75.3 kg Netta Lawler [facility] Work Phone: 01-02-2013 15:49-0400 BMI (Body Mass Index) 23.67 kg/m2 Jyoti Gutierrez [facility] Work Phone: 01-02-2013 15:49-0400 Body Temperature 98 [degF] Jyoti Gutierrez [facility] LIGHT REPAIRER [facility] Internal [facility] Work Phone: Comment on above: Method: Oral 01-02-2013 15:49-0400 Body weight 74.84 kg Jyoti Gutiererz JASS [facility] Internal [facility] Work Phone: 01-02-2013 15:49-0400 BP Diastolic 70 mm[Hg] Jyoti Gutierrez [facility] LIGHT REPAIRER [facility] Internal Medicine Work Phone: Comment on above: Patient Position: Sitting; Cuff Location : Left Arm; Cuff Size: Standard 01-02-2013 15:49-0400 BP Systolic 110 mm[Hg] Jyoti Gutierrez STRE[address] LIGHT REPAIRER [facility] Work Phone: Comment on above: Patient Position: Sitting; Cuff Location : Left Arm; Cuff Size: Standard 01-02-2013 15:49-0400 BSA (Body Surface Area) 1.92 m2 Jyoti Gutierrez [facility]ASS [facility] Internal [facility] Work Phone: 01-02-2013 15:49-0400 Height 177.8 cm Jyoti Gutierrez [facility] Work Phone: 01-02-2013 15:49-0400 Pulse (Heart Rate) 58 /min Jyoti Gutierrez JASS [facility] Work Phone: Comment on above: Pattern: Regular 01-02-2013 15:49-0400 Pulse Oximetry 98 % Netta Lawler [facility] Work Phone: Comment on above: Room air 01-02-2013 15:49-0400 Respiratory Rate 16 /min Jyoti Gutierrez JASS [facility] Work Phone: 01-02-2013 15:49-0400 SaO2% (BldA) [Mass fraction] 98 % Jyoti Gutierrez LPN [facility] Work Phone: Comment on above: Room air 01-02-2013 15:49-0400 Weight 74.84 kg Netta Lawler [facility] Work Phone: 12-11-2011 09:46-0400 Height 180.34 cm [facility] Work Phone: 08-04-2010 14:34-0500 Body weight 74.84 kg Cookie William RN [facility] Work Phone: 08-04-2010 14:34-0500 BP Diastolic 60 mm[Hg] Cookie William RN [facility] Work Phone: Comment on above: Patient Position: Sitting; Cuff Location : Left Arm; Cuff Size: Standard 08-04-2010 14:34-0500 BP Systolic 98 mm[Hg] Cookie William RN [facility] Work Phone: Comment on above: Patient Position: Sitting; Cuff Location : Left Arm; Cuff Size: Standard 08-04-2010 14:34-0500 Pulse (Heart Rate) 60 /min Cookie William RN [facility] Work Phone: Comment on above: Pattern: Regular 08-04-2010 14:34-0500 Respiratory Rate 16 /min Cookie William RN [facility] Work Phone: Comment on above: Pattern: Unlabored 08-04-2010 14:34-0500 Weight 74.84 kg Netta Lawler [facility] Work Phone: 05-05-2010 15:15-0500 Body Temperature 97.6 [degF] Emili Reece [facility] Work Phone: 05-05-2010 15:15-0500 Body weight 74.84 kg Emili Reece [facility] Work Phone: 05-05-2010 15:15-0500 BP Diastolic 70 mm[Hg] Emili Reece [facility] Work Phone: Comment on above: Patient Position: Sitting; Cuff Location : Left Arm; Cuff Size: Standard 05-05-2010 15:15-0500 BP Systolic 106 mm[Hg] Emili Reece [facility] Work Phone: Comment on above: Patient Position: Sitting; Cuff Location : Left Arm; Cuff Size: Standard 05-05-2010 15:15-0500 Pulse (Heart Rate) 68 /min Emili Reece [facility] Work Phone: Comment on above: Pattern: Regular 05-05-2010 15:15-0500 Respiratory Rate 18 /min Emili Reece [facility] Work Phone: Comment on above: Pattern: Unlabored 05-05-2010 15:15-0500 Weight 74.84 kg Netta Lawler [facility] Work Phone: 09-03-2008 15:59-0400 Body Temperature 98.3 [degF] Emili Reece [facility] Work Phone: Comment on above: Method: Undefined 09-03-2008 15:59-0400 Body weight 0 kg Emili Reece [facility] Work Phone: 09-03-2008 15:59-0400 BP Diastolic 68 mm[Hg] Emili Reece [facility] Work Phone: Comment on above: Patient Position: Sitting; Cuff Location : Right Arm; Cuff Size: Large 09-03-2008 15:59-0400 BP Systolic 102 mm[Hg] Emili Reece [facility] Work Phone: Comment on above: Patient Position: Sitting; Cuff Location : Right Arm; Cuff Size: Large 09-03-2008 15:59-0400 Head Circumference 0 cm Netta Lawler [facility] Internal [facility] Work Phone: 09-03-2008 15:59-0400 Head Occipital-frontal circumference 0 cm Emili Jacqueskorey [facility] Work Phone: 09-03-2008 15:59-0400 Height 0 cm Emili Jacqueskorey [facility] Work Phone: 09-03-2008 15:59-0400 Pulse (Heart Rate) 68 /min [facility] Work Phone: Comment on above: Pattern: Regular 09-03-2008 15:59-0400 Respiratory Rate 16 /min Emili Jacqueskorey [facility] Work Phone: Comment on above: Pattern: Undefined 09-03-2008 15:59-0400 Weight 0 kg Netta Monaeon [facility] Work Phone: 11-24-2007 09:26-0400 BMI (Body Mass Index) 24.72 kg/m2 Cookie William RN [facility] Work Phone: 11-24-2007 09:26-0400 Body weight 79.83 kg Cookie William RN [facility] Work Phone: 11-24-2007 09:26-0400 BP Diastolic 86 mm[Hg] Cookie William RN [facility] Work Phone: Comment on above: Patient Position: Sitting; Cuff Location : Left Arm; Cuff Size: Standard 11-24-2007 09:26-0400 BP Systolic 128 mm[Hg] Cookie William RN [facility] Work Phone: Comment on above: Patient Position: Sitting; Cuff Location : Left Arm; Cuff Size: Standard 11-24-2007 09:26-0400 BSA (Body Surface Area) 1.99 m2 Cookie William RN [facility] Work Phone: 11-24-2007 09:26-0400 Head Circumference 0 cm Netta Monaeon [facility] Work Phone: 11-24-2007 09:26-0400 Head Occipital-frontal circumference 0 cm Cookie William RN [facility] Work Phone: 11-24-2007 09:26-0400 Height 179.71 cm Cookie William RN [facility] Work Phone: 11-24-2007 09:26-0400 Pulse (Heart Rate) 60 /min Cookie William RN [facility] Work Phone: Comment on above: Pattern: Regular 11-24-2007 09:-0400 Respiratory Rate 20 /min Cookie William RN [facility] Work Phone: Comment on above: Pattern: Unlabored 11-24-2007 09:-0400 Weight 79.83 kg Netta Lawler [facility] Work Phone: 05-27-2007 07:37-0500 Body Temperature 98.4 [degF] IMTIAZ Shore LPN [facility] Work Phone: Comment on above: Method: Oral 05-27-2007 07:37-0500 Body weight 0 kg IMTIAZ Shore LPN [facility] Work Phone: 05-27-2007 07:37-0500 BP Diastolic 76 mm[Hg] IMTIAZ Shore LPN [facility] Work Phone: Comment on above: Patient Position: Sitting; Cuff Location : Left Arm; Cuff Size: Standard 05-27-2007 07:37-0500 BP Systolic 124 mm[Hg] IMTIAZ Shore LPN [facility] Work Phone: Comment on above: Patient Position: Sitting; Cuff Location : Left Arm; Cuff Size: Standard 05-27-2007 07:37-0500 Head Circumference 0 cm Netta Monaeon [facility] Work Phone: 05-27-2007 07:37-0500 Head Occipital-frontal circumference 0 cm IMTIAZ Shore LPN [facility] Work Phone: 05-27-2007 07:37-0500 Height 0 cm IMTIAZ Shore LPN [facility] Work Phone: 05-27-2007 07:37-0500 Pulse (Heart Rate) 70 /min IMTIAZ Shore LPN [facility] Work Phone: Comment on above: Pattern: Regular 05-27-2007 07:37-0500 Respiratory Rate 18 /min IMTIAZ Shore JASS [facility] Work Phone: Comment on above: Pattern: Unlabored 05-27-2007 07:37-0500 Weight 0 kg Netta Lawler [facility] Work Phone: 05-17-2007 14:30-0500 BMI (Body Mass Index) 24.72 kg/m2 Cookie William RN [facility] Work Phone: 05-17-2007 14:30-0500 Body weight 79.83 kg Cookie William RN [facility] Work Phone: 05-17-2007 14:30-0500 BP Diastolic 64 mm[Hg] Cookie William RN [facility] Work Phone: Comment on above: Patient Position: Sitting; Cuff Location : Left Arm; Cuff Size: Standard 05-17-2007 14:30-0500 BP Systolic 122 mm[Hg] Cookie William RN [facility] Work Phone: Comment on above: Patient Position: Sitting; Cuff Location : Left Arm; Cuff Size: Standard 05-17-2007 14:30-0500 BSA (Body Surface Area) 1.99 m2 Cookie William RN [facility] Work Phone: 05-17-2007 14:30-0500 Head Circumference 0 cm Netta Lawler [facility] Work Phone: 05-17-2007 14:30-0500 Head Occipital-frontal circumference 0 cm Cookie William RN [facility] Work Phone: 05-17-2007 14:30-0500 Height 179.71 cm Cookie William RN [facility] Work Phone: 05-17-2007 14:30-0500 Pulse (Heart Rate) 60 /min Cookie William RN [facility] Work Phone: Comment on above: Pattern: Regular 05-17-2007 14:30-0500 Respiratory Rate 20 /min Cookie William RN [facility] Work Phone: Comment on above: Pattern: Unlabored 05-17-2007 14:30-0500 Weight 79.83 kg Netta Lawler [facility] Work Phone: 05-09-2007 08:19-0500 BMI (Body Mass Index) 24.72 kg/m2 Cookie William RN [facility] Work Phone: 05-09-2007 08:19-0500 Body weight 79.83 kg Cookie William RN [facility] Work Phone: 05-09-2007 08:19-0500 BP Diastolic 80 mm[Hg] Cookie William RN [facility] Work Phone: Comment on above: Patient Position: Sitting; Cuff Location : Left Arm; Cuff Size: Standard 05-09-2007 08:19-0500 BP Systolic 122 mm[Hg] Cookie William RN [facility] Work Phone: Comment on above: Patient Position: Sitting; Cuff Location : Left Arm; Cuff Size: Standard 05-09-2007 08:19-0500 BSA (Body Surface Area) 1.99 m2 Cookie William RN [facility] Work Phone: 05-09-2007 08:19-0500 Head Circumference 0 cm Netta Lawler [facility] Work Phone: 05-09-2007 08:19-0500 Head Occipital-frontal circumference 0 cm Cookie William RN [facility] Work Phone: 05-09-2007 08:19-0500 Height 179.71 cm Cookie William RN [facility] Work Phone: 05-09-2007 08:19-0500 Pulse (Heart Rate) 80 /min Cookie William RN [facility] Work Phone: Comment on above: Pattern: Regular 05-09-2007 08:19-0500 Respiratory Rate 16 /min Cookie William RN [facility] Work Phone: Comment on above: Pattern: Unlabored 05-09-2007 08:19-0500 Weight 79.83 kg Netta Lawler [facility] Work Phone: 04-06-2007 10:26-0400 BMI (Body Mass Index) 24.72 kg/m2 Emili Reece [facility] Work Phone: 04-06-2007 10:26-0400 Body Temperature 99.1 [degF] Emili Reece [facility] Work Phone: Comment on above: Method: Oral 04-06-2007 10:26-0400 Body weight 79.83 kg Emili Reece [facility] Work Phone: 04-06-2007 10:26-0400 BP Diastolic 62 mm[Hg] Emili Reece [facility] Work Phone: Comment on above: Patient Position: Sitting; Cuff Location : Left Arm; Cuff Size: Standard 04-06-2007 10:26-0400 BP Systolic 100 mm[Hg] Emili Reece [facility] Work Phone: Comment on above: Patient Position: Sitting; Cuff Location : Left Arm; Cuff Size: Standard 04-06-2007 10:26-0400 BSA (Body Surface Area) 1.99 m2 Emili Reece [facility] Work Phone: 04-06-2007 10:26-0400 Head Circumference 0 cm Netta Lawler [facility] Work Phone: 04-06-2007 10:26-0400 Head Occipital-frontal circumference 0 cm Emili Reece [facility] Work Phone: 04-06-2007 10:26-0400 Height 179.71 cm Emili Reece [facility] Work Phone: 04-06-2007 10:26-0400 Pulse (Heart Rate) 68 /min Emili Reece [facility] Work Phone: Comment on above: Pattern: Regular 04-06-2007 10:26-0400 Respiratory Rate 16 /min Emili Reece [facility] Work Phone: Comment on above: Pattern: Unlabored 04-06-2007 10:26-0400 Weight 79.83 kg Netta Lawler [facility] Work Phone: 03-24-2007 11:49-0400 BMI (Body Mass Index) 24.58 kg/m2 Jyoti Gutierrez LPN [facility] Work Phone: 03-24-2007 11:49-0400 Body weight 79.38 kg Jyoti Gutierrez LPN [facility] Work Phone: 03-24-2007 11:49-0400 BP Diastolic 64 mm[Hg] Jyoti Gutierrez LPN [facility] Work Phone: Comment on above: Patient Position: Sitting; Cuff Location : Left Arm; Cuff Size: Standard 03-24-2007 11:49-0400 BP Systolic 102 mm[Hg] Jyoti Gutierrez LPN [facility] Work Phone: Comment on above: Patient Position: Sitting; Cuff Location : Left Arm; Cuff Size: Standard 03-24-2007 11:49-0400 BSA (Body Surface Area) 1.99 m2 Jyoti Gutierrez LPN [facility] Work Phone: 03-24-2007 11:49-0400 Head Circumference 0 cm Netta Lawler [facility] Work Phone: 03-24-2007 11:49-0400 Head Occipital-frontal circumference 0 cm Jyoti Gutierrez LPN [facility] Work Phone: 03-24-2007 11:49-0400 Height 179.71 cm Jyoti Gutierrez LPN [facility] Work Phone: 03-24-2007 11:49-0400 Pulse (Heart Rate) 66 /min Jyoti Gutierrez LPN [facility] Work Phone: Comment on above: Pattern: Regular 03-24-2007 11:49-0400 Respiratory Rate 17 /min Jyoti Gutierrez LPN [facility] Work Phone: Comment on above: Pattern: Unlabored 03-24-2007 11:49-0400 Weight 79.38 kg Netta Lawler [facility] Work Phone: 03-22-2007 09:11-0400 BMI (Body Mass Index) 24.58 kg/m2 [facility]ili [facility] Work Phone: 03-22-2007 09:11-0400 Body Temperature 97.8 [degF] Emili Reece [facility] Work Phone: Comment on above: Method: Oral 03-22-2007 09:11-0400 Body weight 79.38 kg Emili Reece [facility] Work Phone: 03-22-2007 09:11-0400 BP Diastolic 60 mm[Hg] Emili Reece [facility] Work Phone: Comment on above: Patient Position: Sitting; Cuff Location : Left Arm; Cuff Size: Standard 03-22-2007 09:11-0400 BP Systolic 100 mm[Hg] Emili Reece [facility] Work Phone: Comment on above: Patient Position: Sitting; Cuff Location : Left Arm; Cuff Size: Standard 03-22-2007 09:11-0400 BSA (Body Surface Area) 1.99 m2 Emili Reece [facility] Work Phone: 03-22-2007 09:11-0400 Head Circumference 0 cm Netta Lawler [facility] Work Phone: 03-22-2007 09:11-0400 Head Occipital-frontal circumference 0 cm Emili Reece [facility] Work Phone: 03-22-2007 09:11-0400 Height 179.71 cm Emili Reece [facility] Work Phone: 03-22-2007 09:11-0400 Pulse (Heart Rate) 60 /min [facility] Work Phone: Comment on above: Pattern: Regular 03-22-2007 09:11-0400 Respiratory Rate 16 /min Emili Reece [facility] Work Phone: Comment on above: Pattern: Unlabored 03-22-2007 09:11-0400 Weight 79.38 kg Netta Lawler [facility] Work Phone: Encounters Encounter Date Encounter Type Care Provider Facility Start: 05-01-2024 End: 05-01-2024 ambulatory Connie Fast Facility:[facility] Start: 04-14-2024 ambulatory Connie Fast Facility:[facility] Start: 04-14-2024 End: 04-14-2024 ambulatory Connie Fast Facility:[facility] Start: 04-06-2024 End: 04-06-2024 ambulatory Connie Fast Facility:[facility] Start: 03-29-2023 End: 04-01-2023 Patient encounter procedure Kimmie Gifford [facility] Start: 03-29-2023 Review Connie Fast DO Work Phone: [facility] Start: 03-18-2023 End: 03-17-2023 Phone Encounter Connie Fast DO Work Phone: [facility] Start: 04-06-2022 End: 04-06-2022 Patient encounter procedure Kimmie Gifford [facility] Start: 04-06-2022 Review Connie Fast DO Work Phone: [facility] Start: 03-31-2022 End: 03-30-2022 Phone Encounter Connie Fast DO Work Phone: [facility] Start: 02-25-2022 Non-patient / Non-visit Dr. Connie Wilson Work Phone: [facility] Start: 02-25-2022 End: 02-25-[address] Connie Wilson Work Phone: [facility] Work Phone: Start: 02-25-2022 End: 02-25-[address] Connie Wilson Work Phone: [facility] Start: 02-19-2022 End: 02-19-[address] Connie Wilson Work Phone: [facility] Start: 02-13-2022 Non-patient / Non-visit Dr. Connie Wilson Work Phone: [facility] Start: 02-13-2022 End: 02-13-[address] Connie Wilson Work Phone: [facility] Work Phone: Start: 02-13-2022 End: 02-13-[address] Connie Wilson Work Phone: [facility] Start: 07-14-2021 End: 07-14-2021 Office outpatient visit 5 minutes Connie Wilson DO Work Phone: [facility] Start: 04-17-2021 End: 04-21-2021 ambulatory [facility] Start: 04-14-2021 End: 04-18-2021 ambulatory PHYSICIAN [facility] Start: 04-10-2021 End: 04-14-2021 ambulatory PHYSICIAN [facility] Start: 04-10-2021 End: 04-10-2021 ambulatory Connie Wilson DO Work Phone: [facility] [place] [place] [facility] Comment on above: Left knee pain, unsp ecified chronicity Start: 04-07-2021 End: 04-11-2021 ambulatory PHYSICIAN [facility] Start: 04-04-2021 End: 04-08-2021 ambulatory CONNIE WILSON [facility] Start: 04-01-2021 End: 04-06-2022 Patient encounter procedure Connie Wilson DO Work Phone: [facility] Start: 04-01-2021 Review Connie Wilson DO Work Phone: [facility] Start: 03-31-2021 End: 04-04-2021 ambulatory [facility] Start: 03-31-2021 End: 03-31-2021 ambulatory Connie Wilson DO Work Phone: [facility] [place] Comment on above: Left knee pain, unsp ecified chronicity Start: 03-19-2021 Transcribe Orders Connie no DO Work Phone: [facility] [place] Comment on above: Left knee pain, unsp ecified chronicity (Primary Dx) Start: 03-11-2021 End: 03-11-2021 Office outpatient visit 15 minutes Connie Fast DO Work Phone: [facility] Start: 03-11-2021 End: 04-04-2021 Phone Encounter Connie Fast DO Work Phone: [facility] Start: 01-29-2021 End: 01-29-2021 Phone Encounter Connie Fast DO Work Phone: [facility] Start: 01-28-2021 End: 02-03-2021 Office outpatient visit 5 minutes Connie Fast DO Work Phone: [facility] Start: 04-19-2020 End: 04-19-2020 Office outpatient visit 5 minutes Connie Fast [facility] Start: 04-12-2020 End: 04-12-2020 Office outpatient visit 5 minutes Connie Fast [facility] Start: 04-09-2020 End: 04-09-2020 Office outpatient visit 25 minutes Connie Fast [facility] Start: 04-09-2020 Review Connie Fast [facility] Start: 03-08-2020 End: 03-12-2020 Phone Encounter Connie Fast DO Work Phone: [facility] Start: 03-06-2020 Review Connie Fast [facility] Start: 03-06-2020 End: 03-06-2020 Office outpatient visit 25 minutes Connie Fast [facility] Start: 03-06-2020 Review Connie Fast [facility] Start: 12-01-2019 End: 12-01-2019 Office outpatient visit 15 minutes Connie Fast [facility] Start: 03-21-2019 End: 03-24-2019 Office outpatient visit 5 minutes Connie Fast [facility] Start: 12-27-2018 End: 12-27-2018 Office outpatient visit 15 minutes Connie Fast [facility] Start: 12-22-2018 End: 12-22-2018 Office outpatient visit 5 minutes Connie Fast [facility] Start: 12-16-2018 End: 12-16-2018 Phone Encounter Connie Fast [facility] Start: 12-14-2018 End: 04-06-2022 Patient encounter procedure Connie Fast DO Work Phone: [facility] Start: 12-14-2018 Review Connie Fast [facility] Start: 11-22-2018 End: 11-22-2018 Phone Encounter Connie Wilson [facility] Start: 10-11-2018 Patient encounter procedure Connie Wilson [facility] Start: 04-08-2018 End: 04-10-2018 Office outpatient visit 25 minutes Netta Starr [facility] Start: 04-04-2018 End: 04-04-2018 Patient encounter procedure Netta Lawler DO Work Phone: [facility] Work Phone: Start: 04-04-2018 End: 04-04-2018 Periodic preventive med est patient 65yrs& older Netta Starr [facility] Start: 06-18-2017 End: 06-18-2017 Office outpatient visit 15 minutes Netta Starr [facility] Start: 11-24-2016 End: 11-24-2016 Office outpatient visit 15 minutes Netta Starr [facility] Start: 04-03-2016 End: 04-03-2016 Periodic preventive med est patient 65yrs& older Netta Starr [facility] Start: 04-03-2016 End: 04-03-2016 Physical examination Cookie Starr [facility] Work Phone: Start: 05-21-2014 End: 05-21-2014 Office outpatient visit 15 minutes Netta Starr [facility] Start: 02-20-2014 End: 02-20-2014 Office outpatient visit 25 minutes Netta Starr [facility] Start: 02-12-2014 End: 02-12-2014 Office outpatient visit 25 minutes Netta Starr [facility] Start: 11-27-2013 End: 11-27-2013 Office outpatient visit 25 minutes Netta Starr [facility] Start: 08-28-2013 End: 08-28-2013 Patient encounter Netta Starr [facility] Start: 08-28-2013 End: 08-28-2013 Patient encounter status Connie Wilson DO Work Phone: [facility] Start: 01-02-2013 End: 01-02-2013 Patient encounter Netta Starr [facility] Start: 07-07-2012 End: 07-07-2012 Patient encounter Netta Starr [facility] Start: 08-04-2010 End: 08-04-2010 Patient encounter Netta Lawler [facility] Start: 05-05-2010 End: 05-05-2010 Patient encounter Netta Lawler [facility] Start: 09-03-2008 End: 09-03-2008 Patient encounter Netta Lawler [facility] Start: 11-24-2007 End: 11-24-2007 Patient encounter Netta Lawler [facility] Start: 05-27-2007 End: 05-27-2007 Patient encounter Netta Lawler [facility] Start: 05-17-2007 End: 05-17-2007 Patient encounter Netta Lawler [facility] Start: 05-09-2007 End: 05-09-2007 Office outpatient visit 15 minutes Netta Lawler [facility] Start: 04-06-2007 End: 04-06-2007 Patient encounter Netta Lawler [facility] Start: 03-23-2007 End: 03-24-2007 Nursing evaluation of patient and report Netta Lawler [facility] Start: 03-22-2007 End: 03-23-2007 Office outpatient visit 25 minutes Netta Lawler [facility] Start: 03-18-2007 End: 03-18-2007 Historical Summary Netta Lawler [facility] Patient encounter procedure Kimmie Chrisalex [facility]; [facility] Work Phone: Physical examination Kimmielexx Gifford [facility]; [facility] Work Phone: Physical examination IMTIAZ [facility] Work Phone: [facility] Work Phone: [facility] Work Phone: Procedures Date Procedure Procedure Detail Performing Clinician Start: 03-24-2023 End: 03-24-2023 Cardiology Visit Report Procedure Note: See Note; NOTES: [facility] [place] [address] OFFICE VISIT Date of Service: 03/24/23 MR#: [id number] Acct: [id number] Name: ADRIAN TROY Rep #: [id number] : 1950 Provider: SARAH lowery Age/Sex: 72/M Location: [facility] Status: Signed HPI HPI History of Present Illness Details: This is a 72-year-old white male who presents today for outpatient cardiovascular follow-up visit. He has a history of underlying CAD-coronary artery related vasospasm, PVCs/PVT, and syncope. He continues to spend the [place] in [place] in the [place]. From a cardiac standpoint, the patient is doing well. He denies any palpitations, chest pain, pressure or heaviness. He denies SOB, Orthopnea, and PND. He does not have bleeding issues; no blood in urine, stool or nosebleeds. He denies any decrease in energy level, myalgias, or claudication. He does not have edema, or sudden weight gain. He denies dizziness, lightheadedness, syncopal or near syncopal episodes, and headaches. Intake Vital Signs 02/25/22 08:00 03/24/23 08:57 Height 5 ft 11 in 5 ft 11 in Weight: 177 lb BMI 24.7 BP 117/71 Blood Pressure Location Lt brachial Position Sitting Respiration 18 Pulse 54 L Pulse Source Monitor Pulse Oximetry (%) 99 Intake Visit Reasons: 1 y fu PREV PFM PT Pharmacy Helper Required: No Is patient in pain?: No Allergies No Known Allergies Allergy (Verified 03/24/23 09:09) Medications aspirin 81 mg tablet,delayed release 81 mg PO QDAY 07/12/17 [History Confirmed 03/24/23] tamsulosin 0.4 mg capsule 0.4 mg PO DAILY 02/21/20 [History Confirmed 03/24/23] amlodipine 5 mg tablet 5 mg PO QDAY #90 tabs 03/24/23 [Rx Confirmed 03/24/23] nitroglycerin 0.4 mg sublingual tablet 0.4 mg sublingual Q5-15M PRN chest pain #25 tabs 03/24/23 [Rx Confirmed 03/24/23] propranolol 60 mg capsule,24 hr,extended release (Inderal LA) 60 mg PO QDAY #90 caps 03/24/23 [Rx Confirmed 03/24/23] PFSH Medical History (Reviewed 03/24/23 @ 09:16 by Cookie Costa [employer], [employer]PING [employer]OCIATE-C) Abnormal EKG Atherosclerotic heart disease of [place] coronary artery without angina pectoris BPH (benign prostatic hyperplasia) Chest pain COPD (chronic obstructive pulmonary disease) GI bleed Hyperlipidemia Nonspecific abnormal cardiovascular system function study Paroxysmal ventricular tachycardia Premature ventricular contraction Syncope and collapse Surgical History History of appendectomy History of back surgery History of tonsillectomy S/P left inguinal hernia repair Family History Mother CAD (coronary artery disease) Brother CAD (coronary artery disease) Hx of CABG Sister Hypertension Social History Smoking Status: Never smoker alcohol intake: current substance use type: does not use ROS Const Const: Negative for fatigue, weakness, fever(s), headache(s), chills, frequent falls, weight gain or weight loss Eyes Eyes: Negative for blind spots, loss of peripheral vision, transient loss of vision, blurry vision, change in vision, double vision, floaters or tunnel vision ENT ENT: Negative for headache(s), dizziness, Nosebleed/epistaxis, balance problems or neck pain Cardio Chest Pain: No Palpitations: No Edema: None Muscle aches with walking: None Resp Respiratory: Negative for SOB with activity, SOB at rest or SOB orthopnea SOB lying down GI GI: Negative nausea, vomiting, heartburn, bloating, vomiting blood/hematemesis, bright, red blood in stools or black,tarry stools Musc Musc: Negative for muscle aches/ myalgia, muscle weakness, joint pain or balance problems Neuro Neuro: Negative for dizziness, lightheadedness, near syncope, syncope, orthostatic symptoms, frequent falls, headache(s), weakness, blurry vision or double vision Sameer Hematologic/Lymphatic: Negative for easy bleeding or easy bruising Endo Endo: Negative for fatigue Cardiology Exam Const Appearance: cooperative, healthy appearing, comfortable, no acute distress, well developed and well groomed Nutritional Appearance: average body habitus Orientation: alert, awake and oriented x3 Head Head: normal to inspection, normocephalic and atraumatic Ears: hearing grossly normal bilaterally Nose: external nose normal Face and Sinus: face symmetric Eyes Eyelids: eyelids normal Conjunctivae: conjunctivae normal Pupils: PERRL EOM: EOM intact bilaterally Neck Neck: normal visual inspection and full ROM Carotids: normal carotid upstroke Chest Chest inspection: normal inspection of the chest, symmetric chest movement and normal respiratory effort Auscultation: Bilateral: Clear to Auscultation Cardio Palpation: normal PMI Rate: bradycardic Rhythm: regular rhythm Heart sounds: S1 normal and S2 normal GI GI: normal to inspection and soft Neuro General: patient alert and patient oriented x3 Skin Skin: no rashes or lesions noted Extremities Pulses: Normal: Right Radial Pulse and Left Radial Pulse Lower Extremity Edema: None: Bilateral Psych Psychological: normal affect Supplemental Info Supplemental Information Transthoracic echocardiogram: 05-21-10 Interpretation Summary Left ventricular systolic function is normal. The estimated ejection fraction is 60 % Trivial mitral valve insufficiency. Trivial tricuspid valve insufficiency. Right ventricular systolic pressure estimated to he 20 mmHg. Comment: The aforementioned procedure was performed during sinus rhythm with frequent premature ectopic complexes Stress Test Report 02-13-2022: Procedure: Exercise tolerance test/imaging study Indications: Chest pain; CAD; PVCs Consent: Per the patient Procedure: The patient exercised on a Salvador protocol for 9 minutes and 30 seconds completing Stage III and 30 seconds of Stage IV achieving a peak heart rate of 122 bpm (82% predicted maximal heart rate) with a peak blood pressure 158/56 mmHg and a peak MET capacity of 11 METs. The baseline ECG demonstrated sinus bradycardia; first-degree AV block.??? The peak exercise ECG demonstrated with no obvious ECG changes. There was an occasional PVC and a rare ventricular couplet during exercise and an occasional PVC during recovery.??? The functional capacity was considered good. There was chest tightness during exercise. The examination was discontinued secondary to chest tightness. Impression: 1.??? Technically adequate (percent predicted maximal heart rate greater than 85%) exercise tolerance test 2.??? Peak exercise ECG with no obvious ECG changes 3.??? There was an occasional PVC and a rare ventricular couplet during exercise and an occasional PVC during recovery 4.??? Nuclear images pending Myocardial perfusion imaging study: Technique: The patient was injected with 11.2 mCi of technetium 99m Cardiolite and subsequently rest SPECT Cardiolite nuclear imaging was obtained in the horizontal long, vertical long, and short axis views. The patient exercised on a Salvador protocol for 9 minutes and 30 seconds completing Stage III and 30 seconds of Stage IV achieving a peak heart rate of 122 bpm (82% predicted maximal heart rate) with a peak blood pressure 158/56 mmHg and a peak MET capacity of 11 METs. The patient was injected with 33.3 mCi of technetium 99m Cardiolite and subsequently stress SPECT Cardiolite nuclear imaging was obtained in the horizontal long, vertical long, and short axis views.??? A gated Cardiolite study at peak stress was obtained. Interpretation: Rest and stress SPECT Cardiolite nuclear imaging status post realignment, normalization, and attenuation correction, demonstrates the appearance of relative uniform tracer uptake and myocardial perfusion appearing within normal limits.??? There is end systolic thickening and brightening.??? The gated Cardiolite study demonstrates myocardial thickening and inward wall motion.??? The reported LVEF is 76%. Impression: 1.??? Rest and stress SPECT Cardiolite nuclear imaging demonstrate relative uniform tracer uptake and myocardial perfusion appearing within normal limits. 2.??? The gated Cardiolite study reports an LVEF of 76%. Cardiac catheterization: 08-05-12: [place], [place] DIAGNOSTIC IMPRESSIONS 1. Coronary atherosclerotic heart disease. I. Borderline significant mid left anterior descending stenosis with a component of myocardial bridging in that segment. question its hemodynamic significance, 2. Normal dominant left circumflex artery, 3. Normal non dominant right coronary artery. Normal left ventricular systolic function with an overall estimated ejection function of 60-65%. Labs: No Data to Display Diagnostics: Electrocardiogram Stress Test Stress Test Nuclear Medicine Chest X-Ray Coronary Angiography CT Pulmonary: No Data to Display Past Visits: Cardiology Visit 03/24/23 Assessment and Plan Assessment and Plan (1) Atherosclerotic heart disease of [place] coronary artery without angina pectoris: Status: Chronic Qualifiers: [place] vs. transplanted heart: [place] heart Qualified Code(s): I25.10 - Atherosclerotic heart disease of [place] coronary artery without angina pectoris Plan: Patient has a history of coronary artery disease. His most recent stress test from 02/13/2022 was negative for ischemia. His most recent coronary CTA from January 2022 was also reviewed with him. He appears stable at this time, and denies any recent symptoms or events. He will continue with his current medical therapy, along with aggressive risk factor lifestyle modifications. (2) Paroxysmal ventricular tachycardia: Status: Resolved Plan: Patient has a history of paroxysmal ventricular tachycardia. He denies any recent symptoms or events. He will continue with his current medical therapy, along with monitoring for any concerning symptoms. (3) Syncope and collapse: Status: Chronic Plan: Patient denies any recent syncopal episodes. He will continue to monitor for any concerning symptoms. Medications: Refilled amlodipine 5 mg PO QDAY 90 tabs 4RF nitroglycerin 0.4 mg sublingual Q5-15M PRN 25 tabs 3RF chest pain propranolol ER (Inderal LA) 60 mg PO QDAY 90 caps 4RF Plan Details Additional Comments: Patient will follow up in 1 year, or sooner if needed. Thank you for allowing me to participate in the care of your patient. Please don't hesitate to call if any issues arise. This note was generated using a voice recognition system and there may be incorrect words, spelling, or punctuation that were not noted when reviewing the office note prior to saving. Portions of this documentation were copied and pasted from previous office visit notes to provide a cohesive continuity of the history. The note has been reviewed, edited, and updated, as necessary. 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 transplanted heart: [place] heart Paroxysmal ventricular tachycardia I47.2 Syncope and collapse R55 Coding Level of Care Code Off vis,est,level 4 Diagnoses Atherosclerosis of [place] coronary artery of [place] heart without angina pectoris I25.10 [place] vs. transplanted heart: [place] heart Paroxysmal ventricular tachycardia I47.2 Syncope and collapse R55 03/24/23 0920 <Electronically signed by Cookie Costa NP, NP-C> Date Cookie SMITH Cosigner Signature: Date (if applicable) CC: Dr. Connie Wilson, DO Connie Wilson DO Work Phone: Start: 02-25-2022 End: 02-25-[address] Procedure Note: See Note; NOTES: [facility] Imaging Services [address] [place] [address] 02/25/22 1723 MR#: [id number] Acct: [id number] Name: ADRIAN TROY Rep #: [id number] : 1950 71 From: Michael Hdz MD PCP: Dr. Connie Wilson, DO Status:REG CLI Y Location: CT CCTA w/Cont Coronary Arteries Date of Study:: 02/25/22 Chest pain Consent:: Per patient The patient underwent high-resolution CT imaging of the chest on 02-25-2022 with attention to the coronary arteries. The coronary arteries were analyzed for the presence and extent of coronary artery calcification as well as underlying atherosclerotic coronary artery disease. The patient tolerated the procedure well with no apparent complications. LEFT MAIN CORONARY ARTERY: The left main coronary artery is a large vessel giving rise to the left anterior descending and left circumflex coronary arteries. It appears to be patent and angiographically normal. LEFT ANTERIOR DESCENDING CORONARY ARTERY: The left anterior descending coronary is a large vessel which tapers to a smaller vessel as it courses to the LV apex. There is no angiographically significant appearing disease appreciated. An intramyocardial bridging segment cannot necessarily be excluded. LEFT CIRCUMFLEX CORONARY ARTERY: The left circumflex coronary artery appears to be a large dominant vessel which provides a left PDA system and the left obtuse marginal branching system. The left circumflex coronary artery system a ppears to be patent and angiographically normal. RIGHT CORONARY ARTERY: The right coronary artery appears to be a small nondominant system. It appears to be patent and angiographically normal. THORACIC AORTA: The thoracic aorta appears to be patent with no obvious atherosclerotic appearing disease. PULMONARY ARTERY: The main pulmonary artery and proximal portions of the right and left pulmonary artery appear to be patent with no obvious filling defect. LEFT ATRIUM/APPENDAGE: The left atrium/appendage appears to be patent with no obvious filling defect. MITRAL VALVE: The mitral valve appears to be a bileaflet structure. AORTIC VALVE: The aortic valve appears to be a trileaflet structure LEFT VENTRICLE: The left ventricle appears to be demonstrate grossly normal left ventricular size, wall motion, and systolic function. The reported LVEF is 66%. CORONARY CALCIUM SCORE: The coronary calcium score was reported as 0. A coronary calcium score of 0 is considered indicative of very low cardiovascular disease risk and less than 5% chance of the presence of underlying atherosclerotic coronary artery disease. This note was generated using a voice recognition system and there may be incorrect words, spelling or punctuation that were not noted when reviewing the office note prior to saving. 02/25/22 1731 <Electronically signed by Michael Hdz MD> Date Michael Hdz MD Cosigner Signature (if applicable): Date CC: Dr. Connie Wilson, DO; Dr. Michael Hdz MD Signed Diana Cisneros MD Work Phone: Start: 02-25-2022 End: 02-25-2022 CT angiography of coronary arteries Dr. Connie Wilson Work Phone: Start: 02-25-2022 End: 02-25-[address] Cardiac Only Procedure Note: See Note; NOTES: [facility] Imaging Services [address] [place] [id number] Cardiac Only MR#: [id number] Acct: [id number] Name: ADRIAN TROY Rep #: [id number] : 1950 71 From: Adrien eaton MD PCP: Dr. Connie Wilson DO Status: [facility] Study: Limited Chest CT Cardiac Only Date of Exam: Exam# [id number] Ordering Dr: Michael Hdz MD STUDY: CT CHEST WITHOUT CONTRAST REASON FOR EXAM: Male, 71 years old. CHEST PAIN, CAD. OVER READ ONLY RADIATION DOSAGE (If Supplied By Facility): CTDIvol = ( 28.25 ) mGy, DLP = ( 1414.92 ) mGycm TECHNIQUE: Transaxial imaging was performed without the administration of intravenous contrast material. Individualized dose optimization techniques were used for this CT. COMPARISON: No relevant priors. FINDINGS: CHEST Mild degree of dependent atelectasis and/or scarring at the lung bases. Mild degree of emphysematous changes. There is no demonstrated pleural abnormality. Normal heart and pericardium. Normal mediastinum. Normal hilar regions. Normal unenhanced pulmonary arteries. Normal aorta arch and descending thoracic aorta. Normal osseous structures. There is a 3.2 cm x 2.3 cm cyst in the lateral aspect of the right lobe of the liver. CT/Limited Chest CT Cardiac Only IMPRESSION: Mild degree of dependent atelectasis and/or scarring at the lung bases. Hepatic cyst. Electronically Signed: Adrien Garrett MD at 9:53 EDT , CC: Dr. Connie Wilson DO; Dr. Michael Hdz MD Rn Clinical Quality: Signed Connie Wilson DO Work Phone: Start: 02-19-2022 End: 02-19-2022 12 Lead EKG performed by [facility]MS Procedure Note: See Note; NOTES: [facility] [address] [place] [address] 12 Lead EKG performed by BMS 02/19/22 1040 MR#: [id number] Acct: [id number] Name: ADRIAN TROY Rep #: [id number] : 1950 71 From: Michael Hdz MD Attending Dr: Dr. Michael Hdz MD Status: DE P AMB Ordering Dr: Michael Hdz MD Date: 02/19/22 Location: [facility] Sex: M C Admitted: BMS/12 Lead EKG performed by [facility] ECG Report Interpretation Si nus Bradycardia -First degree A-V block Negative precordial T-waves. Electronically signed on 02/19/2022 at 11:01 by Michael Hdz Software Version [id number] 02/19/22 1105 Date Michael Hdz MD CC: Dr. Connie Wilson DO Date Dictated: 02/19/22 1040 Date Transcribed: 02/19/221039 Rn Clinical Quality: PM Signed Connie Wilson DO Work Phone: Start: 02-19-2022 End: 02-19-2022 Cardiology Visit Report Procedure Note: See Note; NOTES: [facility] [place] [address] OFFICE VISIT Date of Service: 02/19/22 MR#: [id number] Acct: [id number] Name: ADRIAN TROY Rep #: [id number] : 1950 Provider: Dr. Michael ibarra MD Age/Sex: 71/M Location: [facility] Status: Signed HPI HPI History of Present Illness Details: This is a 71-year-old white male who presents today for outpatient cardiovascular follow-up of his history of underlying CAD-coronary artery related vasospasm, PVCs/PVT, and syncope. He continues to spend the [place] in [place] in the [place]. He states he did have an accident using a table saw. This resulted into a right shoulder injury and a right forearm injury. He was evaluated by orthopedic surgery. He did not require any surgical intervention. He stated he had been having episodes of chest tightness. This can occur at rest and not necessarily with exertion. Based upon his symptoms he was concerned. He subsequently underwent evaluation with a stress nuclear imaging study recently. The result is noted below. It is noted during his stress test that he did have chest tightness without obvious electrocardiographic changes or myocardial perfusion changes at the heart rate achieved. Since that time he states he still has episodes of resting chest tightness. He states he almost took nitroglycerin sublingual but did not. He has had no symptoms of obvious orthopnea or PND or peripheral pitting edema. There is been no near-syncope or syncope. He did have an ECG in the office today. This demonstrated sinus bradycardia with a first-degree AV block with a negative precordial T waves-anterior. Intake Vital Signs 02/19/22 10:05 02/19/22 10:07 Height 5 ft 11 in 5 ft 11 in Weight: 173 lb 3 oz BMI 24.1 BP 100/62 Blood Pressure Location Lt brachial Position Sitting Respiration 16 Pulse 56 L Pulse Source Auscultation Intake Visit Reasons: 1 YR WITH [facility] Pharmacy Helper Required: No Accompanied by: Self Allergies No Known Allergies Allergy (Verified 02/19/22 10:07) Medications aspirin 81 mg tablet,delayed release 81 mg PO QDAY 07/12/17 [History Confirmed 02/19/22] tamsulosin 0.4 mg capsule 0.4 mg PO DAILY 02/21/20 [History Confirmed 02/19/22] amlodipine 5 mg tablet 5 mg PO QDAY #90 tabs 02/19/22 [Rx Confirmed 02/19/22] nitroglycerin 0.4 mg sublingual tablet 0.4 mg sublingual Q5-15M PRN chest pain #25 tabs 02/19/22 [Rx Confirmed 02/19/22] propranolol 60 mg capsule,24 hr,extended release (Inderal LA) 60 mg PO QDAY #90 caps 02/19/22 [Rx Confirmed 02/19/22] [facility] Medical History (Updated 02/19/22 @ 10:[address] Michael Hdz MD) Abnormal EKG Atherosclerotic heart disease of [place] coronary artery without angina pectoris BPH (benign prostatic hyperplasia) Chest pain COPD (chronic obstructive pulmonary disease) GI bleed Hyperlipidemia Nonspecific abnormal cardiovascular system function study Paroxysmal ventricular tachycardia Premature ventricular contraction Syncope and collapse Surgical History History of appendectomy History of back surgery History of tonsillectomy S/P left inguinal hernia repair Family History Mother CAD (coronary artery disease) Brother CAD (coronary artery disease) Hx of CABG Sister Hypertension Social History Smoking Status: Never smoker alcohol intake: current substance use type: does not use ROS Const Const: Positive for fatigue (slight); Negative for weakness, body ache, fever(s), headache(s), chills, frequent falls, night sweats, daytime sleepiness, difficulty sleeping, excessive sweating, weight gain, weight loss, increased appetite, poor appetite, anorexia or other Eyes Eyes: Negative for blurry vision or double vision ENT ENT: Negative for headache(s), dizziness or balance problems Cardio Chest Pain: Yes Character: tightness Onset: at rest Location: mid sternal Duration: minutes (30 minutes) Palpitations: No Edema: None Muscle aches with walking: None Resp Respiratory: Negative for SOB with activity, SOB at rest, SOB orthopnea SOB lying down, Cough, Coughing up blood/hemoptysis, chest congestion, pain on inspiration, snoring, stridor, wheezing, crackles, paroxysmal nocturnal dyspnea or other Musc Musc: Positive for joint pain (Arthritis Rt shoulder and Lt knee); Negative for muscle aches/ myalgia, muscle weakness or balance problems Neuro Neuro: Negative for dizziness, lightheadedness, near syncope, syncope, orthostatic symptoms, frequent falls, headache(s), weakness, confusion, memory loss, restless legs, blurry vision, double vision, vertigo, seizures, lack of coordination or other Endo Endo: Positive for fatigue (slight); Negative for excessive sweating Cardiology Exam Const Appearance: cooperative, healthy appearing, comfortable, no acute distress, well developed and well groomed Nutritional Appearance: average body habitus Orientation: alert, awake and oriented x3 Head Head: normal to inspection, normocephalic and atraumatic Ears: hearing grossly normal bilaterally Nose: external nose normal Face and Sinus: face symmetric Eyes Eyelids: eyelids normal Conjunctivae: conjunctivae normal Pupils: PERRL EOM: EOM intact bilaterally Neck Neck: normal visual inspection and full ROM Carotids: normal carotid upstroke Chest Chest inspection: normal inspection of the chest, symmetric chest movement and normal respiratory effort Auscultation: Bilateral: Clear to Auscultation Cardio Palpation: normal PMI Rate: regular rate Rhythm: regular rhythm Heart sounds: S1 normal and S2 normal Skin Skin: ecchymosis (right forearm) Extremities Pulses: Normal: Right Radial Pulse and Left Radial Pulse Psych Psychological: normal affect Supplemental Info Supplemental Information Transthoracic echocardiogram: 05-21-10 Interpretation Summary Left ventricular systolic function is normal. The estimated ejection fraction is 60 % Trivial mitral valve insufficiency. Trivial tricuspid valve insufficiency. Right ventricular systolic pressure estimated to he 20 mmHg. Comment: The aforementioned procedure was performed during sinus rhythm with frequent premature ectopic complexes EXERCISE TOLERANCE TEST: 10-11-12 The patient exercised on a [place] protocol for 9 minutes completing stage 3 achieving a peak heart rate of 95 beats per minute (60% predicted maximum heart rate) and a peak blood pressure of 122/56 mmHg and a peak MET capacity of approximately 10 METs. The resting ECG demonstrated sinus bradycardia. The peak exercise ECG demonstrated no obvious ECG changes at the heart rate achieved. There was a rare PVC pretest, rare to occasional PVC during exercise recovery. There was no complaint of chest discomfort during exercise or recovery. The patient stopped secondary to dyspnea. IMPRESSION: 1. Technically inadequate (percent predicted maximum heart rate less than 85%) exercise tolerance test. 2. Peak exercise ECG with no obvious ECG changes. 3. Rare PVC pretest and rare to occasion PVC during exercise recovery. 4. Pharmacologic (regadenoson) evaluation pending. The patient underwent pharmacologic (regadenoson) evaluation with a peak heart rate of 85 beats per minute (54???/s predicted maximum heart rate) and a peak blood pressure of 96/58 mmHg. The resting ECG demonstrated normal sinus rhythm. The peak pharmacologic ECG demonstrated no obvious ECG changes. There was an occasional PVC pretest, during infusion and recovery. There was no complaint of chest discomfort during pharmacologic infusion or recovery. IMPRESSION: 1. Pharmacologic (regadenoson) evaluation. 2. Peak pharmacologic ECG with no obvious ECG changes. 3. Occasional PVC pretest during infusion and recovery. 4. Nuclear images pending. MYOCARDIAL PERFUSION IMAGING STUDY: TECHNIQUE: The patient was injected with 12,0 mCi of Tc99m Cardiolite and subsequently rest SPECT Cardiolite nuclear imaging was obtained in the horizontal long, vertical long and short axes views. The patient exercised on a [place] protocol for 9 minutes achieving a peak heart rate of 95 beats per minute (60% predicted maximum heart rate) with a peak blood pressure of 1 22/56 mmHg and a peak MET capacity of approximately 10 METs, The patient then underwent pharmacologic (regadenoson) evaluation with a peak heart rate of 85 beats per minute, 54% predicted maximum heart rate and a peak blood pressure of 96/58 mmHg. The patient was injected with 33.0 mCi of Tc99m Cardiolite and subsequently stress SPECT Cardiolite nuclear imaging obtained in the horizontal long, vertical long, and short axes views. Gated Cardiolite study at peak stress was obtained. INTERPRETATION: Rest and stress SPECT Cardiolite nuclear imaging demonstrate extra cardiac/hepatic and gastrointestinal tracer uptake near the inferior segments being more prominent at rest as opposed to stress, At rest there appears to be subtle diminished tracer uptake in portions of the basal inferior segments, which appeared to improve and/or normalize following stress. There is end systolic thickening and brightening. The gated Cardiolite study demonstrates myocardial thickening and inward wall motion. The reported LVEF is 66%. There are no myocardial perfusion changes considered diagnostic for stress induced myocardial ischemia or previous myocardial injury/infarction. IMPRESSION: 1. Rest and stress SPECT Cardiolite nuclear imaging demonstrate myocardial perfusion changes appearing compatible with resting soft tissue attenuation/artifact, which appear to improve and/or normalize following stress with no myocardial perfusion changes considered diagnostic for stress induced myocardial ischemia or previous myocardial injury/infarction. 2. The gated Cardiolite study reports an LVEF of 66%. Stress Test Report Date: 02-13-2022 Procedure: Exercise tolerance test/imaging study Indications: Chest pain; CAD; PVCs Consent: Per the patient Procedure: The patient exercised on a [place] protocol for 9 minutes and 30 seconds completing Stage III and 30 seconds of Stage IV achieving a peak heart rate of 122 bpm (82% predicted maximal heart rate) with a peak blood pressure 158/56 mmHg and a peak MET capacity of 11 METs. The baseline ECG demonstrated sinus bradycardia; first-degree AV block.??? The peak exercise ECG demonstrated with no obvious ECG changes. There was an occasional PVC and a rare ventricular couplet during exercise and an occasional PVC during recovery.??? The functional capacity was considered good. There was chest tightness during exercise. The examination was discontinued secondary to chest tightness. Impression: 1.??? Technically adequate (percent predicted maximal heart rate greater than 85%) exercise tolerance test 2.??? Peak exercise ECG with no obvious ECG changes 3.??? There was an occasional PVC and a rare ventricular couplet during exercise and an occasional PVC during recovery 4.??? Nuclear images pending Myocardial perfusion imaging study: Technique: The patient was injected with 11.2 mCi of technetium 99m Cardiolite and subsequently rest SPECT Cardiolite nuclear imaging was obtained in the horizontal long, vertical long, and short axis views. The patient exercised on a [place] protocol for 9 minutes and 30 seconds completing Stage III and 30 seconds of Stage IV achieving a peak heart rate of 122 bpm (82% predicted maximal heart rate) with a peak blood pressure 158/56 mmHg and a peak MET capacity of 11 METs. The patient was injected with 33.3 mCi of technetium 99m Cardiolite and subsequently stress SPECT Cardiolite nuclear imaging was obtained in the horizontal long, vertical long, and short axis views.??? A gated Cardiolite study at peak stress was obtained. Interpretation: Rest and stress SPECT Cardiolite nuclear imaging status post realignment, normalization, and attenuation correction, demonstrates the appearance of relative uniform tracer uptake and myocardial perfusion appearing within normal limits.??? There is end systolic thickening and brightening.??? The gated Cardiolite study demonstrates myocardial thickening and inward wall motion.??? The reported LVEF is 76%. Impression: 1.??? Rest and stress SPECT Cardiolite nuclear imaging demonstrate relative uniform tracer uptake and myocardial perfusion appearing within normal limits. 2.??? The gated Cardiolite study reports an LVEF of 76%. Cardiac catheterization: 08-05-12: [place], [place] DIAGNOSTIC IMPRESSIONS 1. Coronary atherosclerotic heart disease. I. Borderline significant mid left anterior descending stenosis with a component of myocardial bridging in that segment. question its hemodynamic significance, 2. Normal dominant left circumflex artery, 3. Normal non dominant right coronary artery. Normal left ventricular systolic function with an overall estimated ejection function of 60-65%. Labs: LDL Cholesterol 67 mg/dL (0-130) HDL Cholesterol 58 mg/dL (40-) Triglycerides 69 mg/dL (-199) VLDL Cholesterol 14 mg/dL (5-40) Diagnostics: Stress Test NM Stress Test Chest X-Ray Pulmonary: Pulmonary Function Test Assessment and Plan Assessment and Plan (1) Atherosclerotic heart disease of [place] coronary artery without angina pectoris: Status: Chronic Qualifiers: [place] vs. transplanted heart: [place] heart Qualified Code(s): I25.10 - Atherosclerotic heart disease of [place] coronary artery without angina pectoris Plan: The etiology of his chest tightness is unclear at this time. He still has concerns that this could be related to his history of CAD. It may not be unreasonable to consider further evaluation with a noninvasive study such as a coronary CTA. Depending upon those findings this may or may not need further evaluation in the cardiac catheterization laboratory. (2) Premature ventricular contraction: Status: Chronic Plan: He is not complaining of ectopy or dysrhythmias. He will continue his current therapy and follow-up. (3) Paroxysmal ventricular tachycardia: Status: Resolved Plan: Again he has not had any obvious dysrhythmias. He will continue his medical management. (4) Syncope and collapse: Status: Chronic Plan: He has not had any syncopal events. He will continue to monitor for any concerns. (5) Chest pain, unspecified: Status: Acute Plan: Again based upon his chest discomfort he underwent further evaluation in the office this day. This included an ECG. It demonstrated sinus bradycardia with a first-degree AV block with a negative precordial T wave-anterior. It may not be unreasonable to proceed with further noninvasive valuation as noted above with a coronary CTA. Depending upon the findings he may or may not need reevaluation in the cardiac catheterization laboratory. Orders: Orders 12 Lead EKG performed by BMS Today I25.10 - Atherosclerotic heart disease of [place] coronary artery without angina pectoris, I47.2 - Ventricular tachycardia, I49.3 - Ventricular premature depolarization, R07.9 - Chest pain, unspecified, R55 - Syncope and collapse CCTA W/CONT Coronary Arteries Today I25.10 - Atherosclerotic heart disease of [place] coronary artery without angina pectoris, I47.2 - Ventricular tachycardia, I49.3 - Ventricular premature depola rization, R07.9 - Chest pain, unspecified, R55 - Syncope and collapse Medications: New nitroglycerin 0.4 mg sublingual Q5-15M PRN 25 tabs 3RF chest pain Refilled amlodipine 5 mg PO QDAY 90 tabs 4RF propranolol ER (Inderal LA) 60 mg PO QDAY 90 caps 4RF nitroglycerin 0.4 mg sublingual Q5-15M PRN 25 tabs 3RF chest pain Plan Details Additional Comments: The above was discussed with him and he was agreeable to this approach. Thank you for allowing me to participate in the care of your patient. Please don't hesitate to call if any issues arise. This note was generated using a voice recognition system and there may be incorrect words, spelling or punctuation that were not noted when reviewing the office note prior to saving. Follow Up: 1 Year (with PFM ) COVID (Procedure Consent) Procedure Criteria Procedure Criteria: Yes Elective The surgeon/proceduralist and patient have discussed in detail the risk of exposure to and/or potential harm posed by the COVID-19 virus with having a surgery/procedure at this time versus the risk of??? delaying the surgery/procedure. It is not possible to know either the risk of delaying the surgery or procedure or chance of getting an infection with perfect accuracy, but a joint decision was made between the patient and the surgeon/proceduralist ???to proceed at this time with the scheduled surgery/procedure as indicated on the consent form. Coding Level of Care Code Off vis,est,level 4 Diagnoses Atherosclerotic heart disease of [place] coronary artery without angina pectoris I25.10 [place] vs. transplanted heart: [place] heart Premature ventricular contraction I49.3 Paroxysmal ventricular tachycardia I47.2 Syncope and collapse R55 Chest pain, unspecified R07.9 Coding Level of Care Code Off vis,est,level 4 Diagnoses Atherosclerotic heart disease of [place] coronary artery without angina pectoris I25.10 [place] vs. transplanted heart: [place] heart Premature ventricular contraction I49.3 Paroxysmal ventricular tachycardia I47.2 Syncope and collapse R55 Chest pain, unspecified R07.9 02/19/22 1050 <Electronically signed by Michael Hdz MD> Date Michael Hdz MD Cosigner Signature: Date (if applicable) CC: Dr. Connie Wilson, DO Connie Wilson DO Work Phone: Start: 02-13-2022 End: 02-13-2022 Stress Report Procedure Note: See Note; NOTES: [facility] [address] [place] [id number] MR#: [id number] Acct: [id number] Name: ADRIAN TROY Rep #: [id number] : 1950 71 From: Michael dHz MD Primary Care: Dr. Connie Wilson, DO Status: R EG CLI Referring Dr: Michael Hdz MD Sex: M C Stress Test Report Date: 02-13-2022 Procedure: Exercise tolerance test/imaging study Indications: Chest pain; CAD; PVCs Consent: Per the patient Procedure: The patient exercised on a [place] protocol for 9 minutes and 30 seconds completing Stage III and 30 seconds of Stage IV achieving a peak heart rate of 122 bpm (82% predicted maximal heart rate) with a peak blood pressure 158/56 mmHg and a peak MET capacity of 11 METs. The baseline ECG demonstrated sinus bradycardia; first-degree AV block. The peak exercise ECG demonstrated with no obvious ECG changes. There was an occasional PVC and a rare ventricular couplet during exercise and an occasional PVC during recovery. The functional capacity was considered good. There was chest tightness during exercise. The examination was discontinued secondary to chest tightness. Impression: 1. Technically adequate (percent predicted maximal heart rate greater than 85%) exercise tolerance test 2. Peak exercise ECG with no obvious ECG changes 3. There was an occasional PVC and a rare ventricular couplet during exercise and an occasional PVC during recovery 4. Nuclear images pending Myocardial perfusion imaging study: Technique: The patient was injected with 11.2 mCi of technetium 99m Cardiolite and subsequently rest SPECT Cardiolite nuclear imaging was obtained in the horizontal long, vertical long, and short axis views. The patient exercised on a [place] protocol for 9 minutes and 30 seconds completing Stage III and 30 seconds of Stage IV achieving a peak heart rate of 122 bpm (82% predicted maximal heart rate) with a peak blood pressure 158/56 mmHg and a peak MET capacity of 11 METs. The patient was injected with 33.3 mCi of technetium 99m Cardiolite and subsequently stress SPECT Cardiolite nuclear imaging was obtained in the horizontal long, vertical long, and short axis views. A gated Cardiolite study at peak stress was obtained. Interpretation: Rest and stress SPECT Cardiolite nuclear imaging status post realignment, normalization, and attenuation correction, demonstrates the appearance of relative uniform tracer uptake and myocardial perfusion appearing within normal limits. There is end systolic thickening and brightening. The gated Cardiolite study demonstrates myocardial thickening and inward wall motion. The reported LVEF is 76%. Impression: 1. Rest and stress SPECT Cardiolite nuclear imaging demonstrate relative uniform tracer uptake and myocardial perfusion appearing within normal limits. 2. The gated Cardiolite study reports an LVEF of 76%. This note was generated with [employer] software. It may contain incorrect words, spelling, and punctuation that were not noted in checking the note before signing. 02/13/22 0935 <Electronically signed by Michael Hdz MD> Date Michael Hdz MD CC: Dr. Connie Wilson DO; Dr. Michael Hdz MD Date Dictated: 02/13/22832 Date Transcribed: 02/13/22832 Rn Clinical Quality: PM Signed Connie Wilson DO Work Phone: Start: 02-13-2022 Radionuclide imaging of perfusion of myocardium under exercise stress Dr. Connie Wilson Work Phone: Start: 03-11-2021 End: 03-11-2021 Knee 4 or More Views Comments: See Note; NOTES: [facility] [address] [place] [address] Knee 4 or More Views MR#: [id number] Acct: [id number] Name: ADRIAN TROY Rep #: [id number] : 1950 M 70 From: Herbert Beebe PCP: Dr. Connie Wilson DO Status: DEP AMB Study: Knee 4 or More Views Date of Exam: 03/11/21 Exam# [id number] Ordering Dr: Connie Wilson DO STUDY: X-RAY - LEFT KNEE REASON FOR EXAM: Left peripatellar knee pain, no specific injury. TECHNIQUE: 4 view(s) of the knee. COMPARISON: None. FINDINGS: Normal visualized distal femur. Normal visualized proximal tibia and fibula. Normal proximal tibiofibular articulation. Normal medial femorotibial compartment. There is mild joint space narrowing of the lateral femorotibial compartment. Normal patellofemoral articulation. There is a small joint effusion. There are intra-articular bodies. There is mild chondrocalcinosis in the [place]. There is a small ossicle adjacent to the lateral patellar facet. 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 Intra-articular bodies. Small joint effusion. Mild chondrocalcinosis. Electronically Signed: Herbert Jenkins MD at 11:32 EDT Tel , Service support , CC: Dr. Connie Wilson DO Rn Clinical Quality: Signed Connie Wilson DO Work Phone: Start: 02-19-2021 End: 02-19-2021 Cardiology Visit Report Comments: See Note; NOTES: [facility]. [address] [place] [address] OFFICE VISIT Date of Service: 02/19/21 MR#: [id number] Acct: [id number] Name: ADRIAN TROY Rep #: [id number] : 1950 Provider: Dr. Michael ibarra MD Age/Sex: 70/M [place] [facility] [place] Signed [facility] HPI History of Present Illness Details: This is a 70-year-old white male who presents today for outpatient cardiovascular follow-up of his history of underlying CAD-coronary artery related vasospasm, PVCs/PVT, and syncope. He continues to spend the [place] in [place] in the [place] in [place]. Since his last visit he states overall he is done well from a cardiac standpoint. There is no episodes of angina pectoris or obvious CHF/pulmonary edema. There is been no near syncope or syncope. He has not required additional cardiovascular diagnostic studies or testing. He remains very active. Intake Vital Signs 02/19/21 15:19 Height 5 ft 11 in Weight: 171 lb 5 oz BP 96/60 Blood Pressure Location Lt brachial Position Sitting Respiration 16 Pulse 56 L Pulse Source Auscultation Intake Visit Reasons: 1 Y FU Pharmacy Helper Required: No Accompanied by: Self Allergies No Known Allergies Allergy (Verified 02/19/21 15:22) Medications aspirin 81 mg tablet,delayed release 81 mg PO QDAY 07/12/17 [History Confirmed 02/19/21] nitroglycerin 0.4 mg sublingual tablet 0.4 mg SUBLINGUAL Q5M PRN #25 tab 10/10/19 [Rx Confirmed 02/19/21] amlodipine 5 mg tablet 5 mg PO QDAY #90 tab 12/01/19 [Rx Confirmed 02/19/21] tamsulosin 0.4 mg capsule 0.4 mg PO DAILY cap 02/21/20 [History Confirmed 02/19/21] propranolol 60 mg capsule,24 hr,extended release 60 mg PO QDAY #90 cap 05/29/20 [Rx Confirmed 02/19/21] PFSH Medical History Abnormal EKG Atherosclerotic heart disease of [place] coronary artery without angina pectoris BPH (benign prostatic hyperplasia) Chest pain COPD (chronic obstructive pulmonary disease) GI bleed Hyperlipidemia Nonspecific abnormal cardiovascular system function study Paroxysmal ventricular tachycardia Premature ventricular contraction Syncope and collapse Surgical History History of appendectomy History of back surgery History of tonsillectomy S/P left inguinal hernia repair Family History Mother CAD (coronary artery disease) Brother CAD (coronary artery disease) Hx of CABG Sister Hypertension Social History Smoking Status: Never smoker alcohol intake: current substance use type: does not use ROS Const Const: Positive for fatigue (slight in afternoon); Negative for weakness, frequent falls, excessive sweating, weight gain or weight loss Eyes Eyes: Negative for transient loss of vision, blurry vision or change in vision ENT ENT: Negative for dizziness or balance problems Cardio Chest Pain: No Palpitations: No Edema: None Muscle aches with walking: None Resp Respiratory: Negative for SOB with activity or SOB at rest GI GI: Negative vomiting or vomiting blood/hematemesis : Negative for hematuria Musc Musc: Positive for joint pain (Lt knee); Negative for muscle aches/ myalgia, muscle weakness or balance problems Skin Skin: Negative non-healing lesions or rash Neuro Neuro: Positive for lightheadedness (Rare sitting to standing); Negative for dizziness, orthostatic symptoms, frequent falls, weakness or blurry vision Sameer Hematologic/Lymphatic: Negative for easy bleeding Endo Endo: Positive for fatigue (slight in afternoon); Negative for excessive sweating Psych Psych: Negative for anxiety or depression Allergy Allergy/Immunology: Negative for hives and Negative for rash Cardiology Exam Const Appearance: cooperative, healthy appearing, comfortable, no acute distress, well developed and well groomed Nutritional Appearance: average body habitus Orientation: alert, awake and oriented x3 Head Head: normal to inspection, normocephalic and atraumatic Ears: hearing grossly normal bilaterally Nose: external nose normal Face and Sinus: face symmetric Eyes Eyelids: eyelids normal Conjunctivae: conjunctivae normal Pupils: PERRL EOM: EOM intact bilaterally Neck Neck: normal visual inspection and full ROM Carotids: normal carotid upstroke Chest Chest inspection: normal inspection of the chest, symmetric chest movement and normal respiratory effort Auscultation: Bilateral: Clear to Auscultation Cardio Palpation: normal PMI Rate: regular rate Rhythm: regular rhythm Heart sounds: S1 normal and S2 normal Assessment and Plan Assessment and Plan (1) Atherosclerotic heart disease of [place] coronary artery without angina pectoris: Status: Chronic Qualifiers: [place] vs. transplanted heart: [place] heart Qualified Code(s): I25.10 - Atherosclerotic heart disease of [place] coronary artery without angina pectoris Plan - Dr. Michael Hdz MD: At the present time he appears to be doing well. He will continue risk factor evaluation care as deemed appropriate. (2) Premature ventricular contraction: Status: Chronic Plan - Dr. Michael Hdz MD: He is not complaining of ectopy or dysrhythmias. He will continue his current therapy and follow-up. (3) Paroxysmal ventricular tachycardia: Status: Resolved Plan - Dr. Michael Hdz MD: Again he has not had any obvious dysrhythmias. He will continue his medical management. (4) Syncope and collapse: Status: Chronic Plan - Dr. Michael Hdz MD: He has not had any syncopal events. He will continue to monitor for any concerns. Plan Details Additional Comments: Of note, he does state that there has been issues with erectile dysfunction. This has been discussed before. Both he and his have been hesitant to decrease or discontinue his beta-adriana therapy as he has done well on it. At the present time he asked whether he could be a candidate for vasodilator therapy such as sildenafil. As he does not appear to have ongoing obstructive CAD and he has not had to use nitrates as needed or on a sustained basis it appears he may very well be a candidate for such therapy barring some unforeseen event. He will discuss this with his PCP. Thank you for allowing me to participate in the care of your patient. Please don't hesitate to call if any issues arise. This note was generated using a voice recognition system and there may be incorrect words, spelling or punctuation that were not noted when reviewing the office note prior to saving. Follow Up: 1 Year (with PFM) Coding Level of Care Code Off vis,est,level 3 Diagnoses Atherosclerotic heart disease of [place] coronary artery without angina pectoris I25.10 [place] vs. transplanted heart: [place] heart Premature ventricular contraction I49.3 Paroxysmal ventricular tachycardia I47.2 Syncope and collapse R55 Coding Level of Care Code Off vis,est,level 3 Diagnoses Atherosclerotic heart disease of [place] coronary artery without angina pectoris I25.10 [place] vs. transplanted heart: [place] heart Premature ventricular contraction I49.3 Paroxysmal ventricular tachycardia I47.2 Syncope and collapse R55 Supplemental Info Supplemental Information Transthoracic echocardiogram: 05-21-10 Interpretation Summary Left ventricular systolic function is normal. The estimated ejection fraction is 60 % Trivial mitral valve insufficiency. Trivial tricuspid valve insufficiency. Right ventricular systolic pressure estimated to he 20 mmHg. Comment: The aforementioned procedure was performed during sinus rhythm with frequent premature ectopic complexes EXERCISE TOLERANCE TEST: 10-11-12 The patient exercised on a [place] protocol for 9 minutes completing stage 3 achieving a peak heart rate of 95 beats per minute (60% predicted maximum heart rate) and a peak blood pressure of 122/56 mmHg and a peak MET capacity of approximately 10 METs. The resting ECG demonstrated sinus bradycardia. The peak exercise ECG demonstrated no obvious ECG changes at the heart rate achieved. There was a rare PVC pretest, rare to occasional PVC during exercise recovery. There was no complaint of chest discomfort during exercise or recovery. The patient stopped secondary to dyspnea. IMPRESSION: 1. Technically inadequate (percent predicted maximum heart rate less than 85%) exercise tolerance test. 2. Peak exercise ECG with no obvious ECG changes. 3. Rare PVC pretest and rare to occasion PVC during exercise recovery. 4. Pharmacologic (regadenoson) evaluation pending. The patient underwent pharmacologic (regadenoson) evaluation with a peak heart rate of 85 beats per minute (54???/s predicted maximum heart rate) and a peak blood pressure of 96/58 mmHg. The resting ECG demonstrated normal sinus rhythm. The peak pharmacologic ECG demonstrated no obvious ECG changes. There was an occasional PVC pretest, during infusion and recovery. There was no complaint of chest discomfort during pharmacologic infusion or recovery. IMPRESSION: 1. Pharmacologic (regadenoson) evaluation. 2. Peak pharmacologic ECG with no obvious ECG changes. 3. Occasional PVC pretest during infusion and recovery. 4. Nuclear images pending. MYOCARDIAL PERFUSION IMAGING STUDY: TECHNIQUE: The patient was injected with 12,0 mCi of Tc99m Cardiolite and subsequently rest SPECT Cardiolite nuclear imaging was obtained in the horizontal long, vertical long and short axes views. The patient exercised on a [place] protocol for 9 minutes achieving a peak heart rate of 95 beats per minute (60% predicted maximum heart rate) with a peak blood pressure of 1 22/56 mmHg and a peak MET capacity of approximately 10 METs, The patient then underwent pharmacologic (regadenoson) evaluation with a peak heart rate of 85 beats per minute, 54% predicted maximum heart rate and a peak blood pressure of 96/58 mmHg. The patient was injected with 33.0 mCi of Tc99m Cardiolite and subsequently stress SPECT Cardiolite nuclear imaging obtained in the horizontal long, vertical long, and short axes views. Gated Cardiolite study at peak stress was obtained. INTERPRETATION: Rest and stress SPECT Cardiolite nuclear imaging demonstrate extra cardiac/hepatic and gastrointestinal tracer uptake near the inferior segments being more prominent at rest as opposed to stress, At rest there appears to be subtle diminished tracer uptake in portions of the basal inferior segments, which appeared to improve and/or normalize following stress. There is end systolic thickening and brightening. The gated Cardiolite study demonstrates myocardial thickening and inward wall motion. The reported LVEF is 66%. There are no myocardial perfusion changes considered diagnostic for stress induced myocardial ischemia or previous myocardial injury/infarction. IMPRESSION: 1. Rest and stress SPECT Cardiolite nuclear imaging demonstrate myocardial perfusion changes appearing compatible with resting soft tissue attenuation/artifact, which appear to improve and/or normalize following stress with no myocardial perfusion changes considered diagnostic for stress induced myocardial ischemia or previous myocardial injury/infarction. 2. The gated Cardiolite study reports an LVEF of 66%. Cardiac catheterization: 08-05-12: [place], [place] DIAGNOSTIC IMPRESSIONS 1. Coronary atherosclerotic heart disease. I. Borderline significant mid left anterior descending stenosis with a component of myocardial bridging in that segment. question its hemodynamic significance, 2. Normal dominant left circumflex artery, 3. Normal non dominant right coronary artery. Normal left ventricular systolic function with an overall estimated ejection function of 60-65%. Labs: LDL Cholesterol 67 mg/dL (0-130) HDL Cholesterol 58 mg/dL (40-) Triglycerides 69 mg/dL (-199) VLDL Cholesterol 14 mg/dL (5-40) Diagnostics: Chest X-Ray Pulmonary: Pulmonary Function Test 02/19/21 1607 <Electronically signed by Michael Hdz MD> Date Michael Hdz MD Cosigner Signature: Date (if applicable) CC: DO Connie Montano DO Work Phone: Start: 03-18-2020 End: 03-18-2020 Chest without Contrast Comments: See Note; NOTES: [facility] Imaging Services [address] [place] [address] Chest without Contrast MR#: [id number] Acct: [id number] Name: ADRIAN TROY Rep #: [id number] : 1950 M 69 From: Adrien eaton MD PCP: Dr. Connie Wilson DO Status: REG CLI Study: Chest without Contrast Date of Exam: 03/18/20 Exam# [id number] Ordering Dr: Connie Wilson DO STUDY: CT CHEST WITHOUT CONTRAST REASON FOR EXAM: Male, 69 years old. LUNG CRACKLES. RADIATION DOSAGE (If Supplied By Facility): CTDIvol = ( 8.75 ) mGy, DLP = ( 353.07 ) mGycm TECHNIQUE: Transaxial imaging was performed without the administration of intravenous contrast material. Multiplanar coronal and sagittal images were reformatted. Individualized dose optimization techniques were used for this CT. COMPARISON: None. FINDINGS: Mild degree of emphysematous changes more prominent in the upper lobes. Minimal degree of linear scarring in the subpleural regions of the right upper lobe and left upper lobe anteriorly. Minimal linear scarring in the lower There is no demonstrated pleural abnormality. Normal heart and pericardium. Normal mediastinum. Normal hilar regions. Normal unenhanced pulmonary arteries. There is bovine origin of the left common carotid artery arising from the right common carotid artery. This is a normal variant. Normal osseous structures. Cysts are seen in the liver. The largest cyst measures 2.4 cm x 2.3 cm and is in the lateral aspect of the right lobe of the liver. Borderline splenomegaly. CT/Chest without Contrast IMPRESSION: Mild degree of emphysematous changes with mild scarring in the upper and lower lobes as described. Electronically Signed: Adrien Garrett, at 11:06 EDT , Service support , CC: Dr. Connie Wilson DO Rn Clinical Quality: Signed Connie Wilson Work Phone: Start: 03-06-2020 End: 03-06-2020 Chest PA and Lateral Comments: See Note; NOTES: [facility] [address] [place] [address] Chest PA and Lateral MR#: [id number] Acct: [id number] Name: ADRIAN TROY Rep #: [id number] : 1950 M 69 From: Rajiv daugherty MD PCP: Status: DEP AMB Study: Chest PA and Lateral Date of Exam: 03/06/20 Exam# [id number] Ordering Dr: Connie Wilson DO STUDY: X-RAY CHEST REASON FOR EXAM: Male, 69 years old. COUGH, SOB TECHNIQUE: Frontal and lateral views of the chest. COMPARISON: 02/12/2014. FINDINGS: The lungs are clear and expanded. There is no demonstrated pleural abnormality. Normal size heart. Normal mediastinum and rowena. Normal visualized pulmonary arteries. Normal visualized aortic arch and descending thoracic aorta. Normal visualized thoracic spine. Normal visualized ribs, clavicles, and shoulders. There is no demonstrated abnormality of the visualized soft tissue structures of the upper abdomen. RAD/Chest PA and Lateral IMPRESSION: Normal x-ray examination of the chest. Electronically Signed: Rajiv Riggs MD at 22:34 EDT , Service support , CC: Dr. Connie Wilson DO Rn Clinical Quality: Signed Connie Wilson Work Phone: Start: 03-06-2020 End: 03-06-2020 Hand Min 3 Views Comments: See Note; NOTES: [facility] [address] [place] [address] Hand Min 3 Views MR#: [id number] Acct: [id number] Name: ADRIAN TROY Rep #: [id number] : 1950 M 69 From: Herbert Beebe PCP: Status: DEP AMB Study: Hand Min 3 Views Date of Exam: 03/06/20 Exam# [id number] Ordering Dr: Connie Wilson DO STUDY: X-RAY - RIGHT HAND REASON FOR EXAM: Swelling of knuckle of middle finger, no specific injury. TECHNIQUE: 3 view(s) of the hand. COMPARISON: None. FINDINGS: Normal radiocarpal articulation. Normal distal radioulnar joint. Normal visualized carpal bones. Normal carpal articulations Normal carpometacarpal articulation of the thumb. Normal second through fifth carpometacarpal joints. Normal metacarpi. Normal metacarpophalangeal joint of the thumb. Normal interphalangeal joint of the thumb. Normal proximal and distal phalanges of the thumb. Normal metacarpophalangeal joints of the second through fifth fingers. There is a marginal osteophytes of the second and fifth distal interphalangeal joints with mild joint space narrowing. Normal phalanges of the second through fifth fingers. There is mild chondrocalcinosis in the triangular fibrocartilage. RAD/Hand Min 3 Views IMPRESSION: Mild arthrosis of the second and fifth distal interphalangeal joints. Mild chondrocalcinosis. Electronically Signed: Herbert Jenkins MD at 13:12 EDT Tel , Service support , CC: Dr. Connie Wilson DO Rn Clinical Quality: Signed Connie Wilson Work Phone: Start: 02-21-2020 End: 03-08-2020 Cardiology Visit Report Comments: See Note; NOTES: [facility] [address] [place] [address]. [address] [place] [address] OFFICE VISIT Date of Service: 02/21/20 MR#: [id number] Acct: [id number] Name: ADRIAN TROY Rep #: [id number] : 1950 Provider: Dr. Michael ibarra MD Age/Sex: 69/M [place] [facility] [place] Signed [facility] History of Present Illness Details: ADRIAN TROY, is a 69 year old who presents to the office today for a cardiovascular follow- up with a history of coronary artery disease, possible coronary artery related vasospasm, near syncope, ventricular tachycardia. He spends the [place] in [place] and the [place] in [place]. Overall he is been doing well. He denies any ongoing symptoms of classic angina pectoris at rest or with exertion. There is been no episodes of CHF or pulmonary edema. There is been no near syncope or syncope. He has not required any other cardiovascular testing. He remains very active at his [employer]. He does say all and use the kayak. He has felt good doing this. He does note that over the last several years he has noticed diminished erectile capabilities. He states that he is attributing this to age more so than his medications. He is not convinced that is related to his beta-adriana medicine. He states he has discussed this with his and at the time being they have elected to continue his current therapy as it is been working well for him and not alter medications such as his beta-blockers, etc. Intake Vital Signs 02/21/20 Height 5 ft 11 in 02/21/20 Weight: 169 lb 02/21/20 BP 100/62 02/21/20 Blood Pressure Location Lt brachial 02/21/20 Position Sitting 02/21/20 Respiration 16 02/21/20 Pulse 60 02/21/20 Pulse Source Auscultation Intake Visit Reasons: 1 y fu Pharmacy Helper Required: No Accompanied by: Self Allergies No Known Allergies Allergy (Verified 02/21/20 15:21) Medications aspirin 81 mg tablet,delayed release 81 mg PO QDAY 07/12/17 [History Confirmed 02/21/20] propranolol 60 mg capsule,24 hr,extended release 60 mg PO QDAY #90 cap 05/01/19 [Rx Confirmed 02/21/20] nitroglycerin 0.4 mg sublingual tablet 0.4 mg SUBLINGUAL Q5M PRN #25 tab 10/10/19 [Rx Confirmed 02/21/20] amlodipine 5 mg tablet 5 mg PO QDAY #90 tab 12/01/19 [Rx Confirmed 02/21/20] tamsulosin 0.4 mg capsule 0.4 mg PO DAILY cap 02/21/20 [History Confirmed 02/21/20] [facility] Medical History Atherosclerotic heart disease of [place] coronary artery without angina pectoris (Chronic) Premature ventricular contraction (Chronic) Syncope and collapse (Chronic) Paroxysmal ventricular tachycardia (Resolved) Abnormal EKG (Acute) BPH (benign prostatic hyperplasia) (Acute) COPD (chronic obstructive pulmonary disease) (Acute) Chest pain (Acute) GI bleed (Acute) Hyperlipidemia (Acute) Nonspecific abnormal cardiovascular system function study (Acute) Surgical History S/P left inguinal hernia repair (Acute) History of appendectomy (Resolved) History of back surgery (Resolved) History of tonsillectomy (Resolved) Family History Mother CAD (coronary artery disease) Brother CAD (coronary artery disease) Hx of CABG Sister Hypertension Social History (Updated 03/08/20 @ 12:[address] Michael Hdz MD) Smoking Status: Never smoker alcohol intake: current substance use type: does not use ROS Const Const: Negative for fatigue, weakness, frequent falls, excessive sweating, weight gain or weight loss Eyes Eyes: Negative for transient loss of vision, blurry vision or change in vision ENT ENT: Negative for dizziness or balance problems Cardio Chest Pain: No Palpitations: No Edema: None Muscle aches with walking: None Resp Respiratory: Negative for SOB with activity or SOB at rest GI GI: Negative vomiting or vomiting blood/hematemesis : Negative for hematuria Musc Musc: Negative for muscle aches/ myalgia, muscle weakness, joint pain or balance problems Skin Skin: Negative non-healing lesions or rash Neuro Neuro: Negative for dizziness, lightheadedness, orthostatic symptoms, frequent falls, weakness or blurry vision Sameer Hematologic/Lymphatic: Negative for easy bleeding Endo Endo: Negative for fatigue or excessive sweating Psych Psych: Negative for anxiety or depression Allergy Allergy/Immunology: Negative for hives, Negative for rash Cardiology Exam Const Appearance: cooperative, healthy appearing, comfortable, no acute distress, well developed and well groomed Nutritional Appearance: thin Orientation: alert, awake and oriented x3 Head Head: normal to inspection, normocephalic and atraumatic Ears: hearing grossly normal bilaterally Nose: external nose normal Eyes Eyelids: eyelids normal Conjunctivae: conjunctivae normal Pupils: PERRL EOM: EOM intact bilaterally Neck Neck: normal visual inspection, full ROM and no JVD Carotids: normal carotid upstroke; negative bruit Neck Mass: Negative Neck mass Chest Chest inspection: normal inspection of the chest, symmetric chest movement and normal respiratory effort Auscultation: Bilateral: Clear to Auscultation Cardio Palpation: normal PMI Rate: regular rate Rhythm: regular rhythm Heart sounds: S1 normal and S2 normal; negative rub, gallop or murmur GI GI: normal to inspection, soft and bowel sounds present; negative tender Neuro General: alert, awake, oriented x3 and moves all extremities Skin Skin: no rashes or lesions noted Extremities Pulses: Normal: Right Posterior Tibial Pulse, Left Posterior Tibial Pulse, Right Radial Pulse, Left Radial Pulse Lower Extremity Edema: None: Bilateral Psych Psychological: normal affect Assessment Plan 1. Atherosclerosis of [place] coronary artery of [place] heart without angina pectoris I25.10 Plan At the present time he appears to be doing well. He will continue his current medical therapy and follow-up. 2. PVC (premature ventricular contraction) I49.3 Plan He is not complaining of any ectopy or dysrhythmias. He will continue his medical management and follow-up. 3. Paroxysmal ventricular tachycardia I47.2 Plan Again he has had no tacky dysrhythmias that he is aware of. He has had no symptomatic events. He will continue medical management and follow-up. 4. Syncope and collapse R55 Plan There is been no recurrent near syncope or syncope. He will continue his volume support. He will continue his medical management and follow-up. Plan Detail Additional Comments He will be scheduled for an outpatient visit approximately 1 year unless needed sooner. In the interim request will be made for a copy of his PCP lipid labs. Thank you for allowing me to participate in the care of your patient. Please don't hesitate to call if any issues arise. This note was generated using a voice recognition system and there may be incorrect words, spelling or punctuation that were not noted when reviewing the office note prior to saving. Follow Up 02/21/20 (copy of PCP lipid labs) 1 Year (with PFM) Coding Level of Care Code Off vis,est,level 3 Diagnoses Atherosclerosis of [place] coronary artery of [place] heart without angina pectoris I25.10 ?[place] vs. transplanted heart: [place] heart PVC (premature ventricular contraction) I49.3 Paroxysmal ventricular tachycardia I47.2 Syncope and collapse R55 Coding Level of Care Code Off vis,est,level 3 Diagnoses Atherosclerosis of [place] coronary artery of [place] heart without angina pectoris I25.10 ?[place] vs. transplanted heart: [place] heart PVC (premature ventricular contraction) I49.3 Paroxysmal ventricular tachycardia I47.2 Syncope and collapse R55 Supplemental Info Supplemental Information Transthoracic echocardiogram: 11-24-10 Interpretation Summary Left ventricular systolic function is normal. The estimated ejection fraction is 60 % Trivial mitral valve insufficiency. Trivial tricuspid valve insufficiency. Right ventricular systolic pressure estimated to he 20 mmHg. Comment: The aforementioned procedure was performed during sinus rhythm with frequent premature ectopic complexes EXERCISE TOLERANCE TEST: 10-11-12 The patient exercised on a [place] protocol for 9 minutes completing stage 3 achieving a peak heart rate of 95 beats per minute (60% predicted maximum heart rate) and a peak blood pressure of 122/56 mmHg and a peak MET capacity of approximately 10 METs. The resting ECG demonstrated sinus bradycardia. The peak exercise ECG demonstrated no obvious ECG changes at the heart rate achieved. There was a rare PVC pretest, rare to occasional PVC during exercise recovery. There was no complaint of chest discomfort during exercise or recovery. The patient stopped secondary to dyspnea. IMPRESSION: 1. Technically inadequate (percent predicted maximum heart rate less than 85%) exercise tolerance test. 2. Peak exercise ECG with no obvious ECG changes. 3. Rare PVC pretest and rare to occasion PVC during exercise recovery. 4. Pharmacologic (regadenoson) evaluation pending. The patient underwent pharmacologic (regadenoson) evaluation with a peak heart rate of 85 beats per minute (54???/s predicted maximum heart rate) and a peak blood pressure of 96/58 mmHg. The resting ECG demonstrated normal sinus rhythm. The peak pharmacologic ECG demonstrated no obvious ECG changes. There was an occasional PVC pretest, during infusion and recovery. There was no complaint of chest discomfort during pharmacologic infusion or recovery. IMPRESSION: 1. Pharmacologic (regadenoson) evaluation. 2. Peak pharmacologic ECG with no obvious ECG changes. 3. Occasional PVC pretest during infusion and recovery. 4. Nuclear images pending. MYOCARDIAL PERFUSION IMAGING STUDY: TECHNIQUE: The patient was injected with 12,0 mCi of Tc99m Cardiolite and subsequently rest SPECT Cardiolite nuclear imaging was obtained in the horizontal long, vertical long and short axes views. The patient exercised on a [place] protocol for 9 minutes achieving a peak heart rate of 95 beats per minute (60% predicted maximum heart rate) with a peak blood pressure of 1 22/56 mmHg and a peak MET capacity of approximately 10 METs, The patient then underwent pharmacologic (regadenoson) evaluation with a peak heart rate of 85 beats per minute, 54% predicted maximum heart rate and a peak blood pressure of 96/58 mmHg. The patient was injected with 33.0 mCi of Tc99m Cardiolite and subsequently stress SPECT Cardiolite nuclear imaging obtained in the horizontal long, vertical long, and short axes views. Gated Cardiolite study at peak stress was obtained. INTERPRETATION: Rest and stress SPECT Cardiolite nuclear imaging demonstrate extra cardiac/hepatic and gastrointestinal tracer uptake near the inferior segments being more prominent at rest as opposed to stress, At rest there appears to be subtle diminished tracer uptake in portions of the basal inferior segments, which appeared to improve and/or normalize following stress. There is end systolic thickening and brightening. The gated Cardiolite study demonstrates myocardial thickening and inward wall motion. The reported LVEF is 66%. There are no myocardial perfusion changes considered diagnostic for stress induced myocardial ischemia or previous myocardial injury/infarction. IMPRESSION: 1. Rest and stress SPECT Cardiolite nuclear imaging demonstrate myocardial perfusion changes appearing compatible with resting soft tissue attenuation/artifact, which appear to improve and/or normalize following stress with no myocardial perfusion changes considered diagnostic for stress induced myocardial ischemia or previous myocardial injury/infarction. 2. The gated Cardiolite study reports an LVEF of 66%. Cardiac catheterization: 08-05-12: [place], [place] DIAGNOSTIC IMPRESSIONS 1. Coronary atherosclerotic heart disease. I. Borderline significant mid left anterior descending stenosis with a component of myocardial bridging in that segment. question its hemodynamic significance, 2. Normal dominant left circumflex artery, 3. Normal non dominant right coronary artery. Normal left ventricular systolic function with an overall estimated ejection function of 60-65%. Labs LDL Cholesterol 67 mg/dL (0-130) 11/22/15 HDL Cholesterol 58 mg/dL (40-) 11/22/15 Triglycerides 69 mg/dL (-199) 11/22/15 VLDL Cholesterol 14 mg/dL (5-40) 11/22/15 Diagnostics Chest X-Ray 03/06/20 Pulmonary Pulmonary Function Test 03/01/14 03/08/20 1205 <Electronically signed by Michael Hdz MD> Date Michael Hdz MD Cosigner Signature: Date (if applicable) CC: Dr. Connie Wilson, DO Connie Wilson DO Work Phone: Start: 12-05-2019 End: 12-05-2019 Surgery Visit Report Comments: See Note; NOTES: [facility] [address] [place] [address] OFFICE VISIT Date of Service: 12/05/19 MR#: [id number] Acct: [id number] Name: ADRIAN TROY Rep #: [id number] : 1950 Provider: Dr. Shahab savage MD Age/Sex: 69/M Location: [facility] Status: Signed Intake Vital Signs 12/05/19 BMI 23.7 12/05/19 Height 5 ft 11 in 12/05/19 Weight: 175 lb 12/05/19 BMI 24.4 12/05/19 BP 98/62 12/05/19 Blood Pressure Location Rt brachial 12/05/19 Position Sitting 12/05/19 Respiration 16 12/05/19 Temp 97.5 F L 12/05/19 Temp Source Temporal Intake Visit Reasons: Hernia Pharmacy Helper Required: No Is patient in pain?: No Allergies No Known Allergies Allergy (Verified 12/05/19 08:17) Medications aspirin 81 mg tablet,delayed release 81 mg PO QDAY 07/12/17 [History Confirmed 12/05/19] finasteride 5 mg tablet 5 mg PO DAILY 02/20/19 [History Confirmed 12/05/19] tamsulosin 0.4 mg capsule 0.8 mg PO DAILY cap 02/20/19 [History Confirmed 12/05/19] propranolol 60 mg capsule,24 hr,extended release 60 mg PO QDAY #90 cap 05/01/19 [Rx Confirmed 12/05/19] nitroglycerin 0.4 mg sublingual tablet 0.4 mg SUBLINGUAL Q5M PRN #25 tab 10/10/19 [Rx Confirmed 12/05/19] amlodipine 5 mg tablet 5 mg PO QDAY #90 tab 12/01/19 [Rx Confirmed 12/05/19] [facility] Medical History Atherosclerotic heart disease of [place] coronary artery without angina pectoris (Chronic) Premature ventricular contraction (Chronic) Syncope and collapse (Chronic) Paroxysmal ventricular tachycardia (Resolved) Abnormal EKG (Acute) BPH (benign prostatic hyperplasia) (Acute) COPD (chronic obstructive pulmonary disease) (Acute) Chest pain (Acute) GI bleed (Acute) Hyperlipidemia (Acute) Nonspecific abnormal cardiovascular system function study (Acute) Surgical History S/P left inguinal hernia repair (Acute) History of appendectomy (Resolved) History of back surgery (Resolved) History of tonsillectomy (Resolved) Family History Mother CAD (coronary artery disease) Brother CAD (coronary artery disease) Hx of CABG Sister Hypertension Social History (Updated 12/05/19 @ 08:[address] Shahab Freeman MD) Smoking Status: Never smoker alcohol intake: current substance use type: does not use HPI HPI HPI: ADRIAN TROY, is a 69 M who presents to the office today for HPI HPI HPI: ADRIAN TROY, is a 69 M who presents to the office today for Evaluation for questionable recurrent hernia in his left inguinal area. Patient underwent a open left inguinal hernia repair in 1987. He states that mesh was placed at that time. Other than having a laminectomy for back problems and 87 and a previous appendectomy he has been relatively healthy but he has somewhat of a sedentary life. He does not do regular physical activity. Patient has noticed for the last 10 to 11 days some discomfort in his left inguinal area. He states that he has been doing more yard work than recent times. He cannot recall any obvious injury though. The patient is sharp in nature fairly constant. He has not noticed any bulges in the groin area itself. He has had no change in his bowel or bladder habits. And he had a colonoscopy a year and a half ago. ROS General General: No weight change, appetite, fatigue, colon cancer, breast cancer or weakness HEENT HEENT: No difficulty swallowing, eye injury, eye surgery, swollen glands or hoarseness Endo Endocrine: No thyroid disease, diabetes mellitus, thyroid cancer, Hair loss, heat intolerance or cold intolerance Skin Skin: No rash or changing moles Breast Breast: No left breast lump, right breast lump, nipple discharge, breast pain, abnormal mammogram, abnormal US or breast enlargement Musc Musculoskeletal: Yes back problems; no arthritis, rheumatoid arthritis, gout or joint pain Cardio Cardiovascular: Yes atrial fibrillation; no murmur, pacemaker, heart disease, high blood pressure, heart attack, heart stent, palpitations, shortness of breat with exertion or chest pain Psych Psychiatric: No depression, anxiety or hearing voices Resp Respiratory: No shortness of breath, No sleep apnea, No cough, No COPD, No asthma, No emphysema, No wheezing Gastro Gastrointestinal: No abdominal pain, No nausea or vomiting, No diarrhea, No constipation, No blood in stool, No acid reflux, Yes hemorrhoids, No ulcers, No gallbladder problem, No black,tarry stools Sameer Hematologic: No blood thinners, No blood disorders, No bleeding, No anemia, No blood clots Neuro Neurologic: No system reviewed and no additional complaints, except as docu, No as per HPI, No abnormal walking, No abnormal hearing, No abnormal movements, No abnormal speech, No behavioral changes, No burning sensations, No confusion, No seizure-like activity, No unsteadiness, No dizziness, No localized weakness, No frequent falls, No headache(s), No lack of coordination, No loss of vision, No memory loss, No numbness, No other visual disturbances, No radiating pain, No restless legs, No sensory deficit, No fainting, No tingling, No tremor(s), No weakness, No other Exam Chest Breast Palpation: No nipple discharge Cardio Heart Sounds: no murmurs GI Other: Well-healed open left inguinal hernia scar. He has generalized weakness in both groins. He is very thin and is quite easily to feel the firmness of his mesh. When he Vals[place] this does come down but it is equally the same on both the left and right side. I think is more prominent because of the mesh. At rest he is flat. And there is no appreciable tenderness to palpation. He has no varices on his left testicle the left testicle and right testicle feels normal without masses. Assessment Plan Problems 1. Left groin pain R10.32 Plan At this point I do not think he has a recurrent hernia. I think he is probably irritated the tissue that is adjacent to the immovable mesh. I believe that increasing some physical activity with stretching and working on his core with not only benefit the inguinal area but probably would benefit his discomfort in his back. We discussed that if he notices a bulge popping in and out I should reevaluate him for recurrent hernia but I think at this time Ulisses analgesics with stretching and massage I think would probably be in his best interest. We also discussed that after having this type of minor injury there is a little higher chance that he could have a recurrence of his hernia so he really does need to watch out for bulges coming down. Coding Level of Care Code Off vis,new,level 2 Diagnoses Left groin pain R10.32 12/05/19 0831 <Electronically signed by Shahab Freeman MD> Date Shahab Freeman MD Cosigner Signature: Date (if applicable) CC: Dr. Connie Wilson, DO Connie Wilson Start: 02-20-2019 End: 02-20-2019 Cardiology Visit Report Comments: See Note; NOTES: [facility] [facility] [place] [address] OFFICE VISIT Date of Service: 02/20/19 MR#: [id number] Acct: [id number] Name: ADRIAN TROY Rep #: [id number] : 1950 Provider: Michael Hdz MD Age/Sex: 68/M [place] [facility] [place] Signed HPI [facility] History of Present Illness Details: ADRIAN TROY, is a 68 M who presents to the office today for a cardiovascular follow-up. He has a history of coronary artery disease, possible coronary artery related vasospasm, near syncope, ventricular tachycardia. He spends the [place] in [place] and the [place] in [place]. Thus far he states he has been doing well other than an episode this past July, while in [place], where he was diagnosed with acute appendicitis. He underwent appendectomy. He states there were no cardiovascular issues raised. Overall he is been doing well. He denies any ongoing symptoms of classic angina pectoris at rest or with exertion. There is been no episodes of CHF or pulmonary edema. There is been no near syncope or syncope. He has not required any other cardiovascular testing. He remains very active at his [employer]. He does say all and the kayak. He is felt good doing this. Intake Vital Signs02/20/19 Height 5 ft 11 in 02/20/19 Weight: 170 lb 02/20/19 Body Mass Index (BMI) 23.7 02/20/19 Blood Pressure 110/60 Intake Visit Reasons: 1 y fu Pharmacy Helper Required: No Accompanied by: Self Allergies No Known Allergies Allergy (Unverified 02/20/19 15:03) Medications aspirin 81 mg tablet,delayed release 81 mg PO QDAY 07/12/17 [History Confirmed 02/20/19] nitroglycerin 0.4 mg sublingual tablet 0.4 mg SUBLINGUAL Q5M PRN #25 tab 01/07/18 [Rx Confirmed 02/20/19] amlodipine 5 mg tablet 5 mg PO QDAY #90 tab 02/06/19 [Rx Confirmed 02/20/19] propranolol ER 60 mg capsule,24 hr,extended release 60 mg PO QDAY #90 cap 02/06/19 [Rx Confirmed 02/20/19] finasteride 5 mg tablet 5 mg PO DAILY 02/20/19 [History Confirmed 02/20/19] tamsulosin 0.4 mg capsule 0.8 mg PO DAILY cap 02/20/19 [History Confirmed 02/20/19] [facility] Medical History Atherosclerotic heart disease of [place] coronary artery without angina pectoris (Chronic) Premature ventricular contraction (Chronic) Syncope and collapse (Chronic) Paroxysmal ventricular tachycardia (Resolved) Abnormal EKG (Acute) BPH (benign prostatic hyperplasia) (Acute) COPD (chronic obstructive pulmonary disease) (Acute) Chest pain (Acute) GI bleed (Acute) Hyperlipidemia (Acute) Nonspecific abnormal cardiovascular system function study (Acute) Surgical History History of appendectomy (Resolved) History of back surgery (Resolved) History of tonsillectomy (Resolved) Family History Mother CAD (coronary artery disease) Brother CAD (coronary artery disease) Hx of CABG Sister Hypertension Social History (Updated 02/20/19 @ 15:33 by Michael Hdz MD) Smoking Status: Never smoker alcohol intake: current substance use type: does not use ROS Const Const: Negative for fatigue, weakness, frequent falls, excessive sweating, weight gain or weight loss Eyes Eyes: Negative for transient loss of vision, blurry vision or change in vision ENT ENT: Negative for dizziness or balance problems Cardio Chest Pain: No Palpitations: No Edema: None Muscle aches with walking: None Resp Respiratory: Negative for SOB with activity or SOB at rest GI GI: Negative vomiting or vomiting blood/hematemesis : Negative for hematuria Musc Musc: Negative for muscle aches/ myalgia, muscle weakness, joint pain or balance problems Skin Skin: Negative non-healing lesions or rash Neuro Neuro: Positive for near syncope (x1 episode while eating at restaurant, became lightheaded, drank water, resolved); negative for dizziness, lightheadedness, orthostatic symptoms, frequent falls, weakness or blurry vision Sameer Hematologic/Lymphatic: Negative for easy bleeding Endo Endo: Negative for fatigue or excessive sweating Psych Psych: Negative for anxiety or depression Allergy Allergy/Immunology: Negative for hives, Negative for rash Cardiology Exam Const Appearance: cooperative, healthy appearing, comfortable, no acute distress, well developed and well groomed Nutritional Appearance: thin Orientation: alert, awake and oriented x3 Head Head: normal to inspection, normocephalic and atraumatic Ears: hearing grossly normal bilaterally Nose: external nose normal Mouth: moist mucous membranes Teeth and gingiva: fair dentition Eyes Eyelids: eyelids normal Conjunctivae: conjunctivae normal Pupils: PERRL EOM: EOM intact bilaterally Neck Neck: normal visual inspection, full ROM and no JVD Carotids: normal carotid upstroke; negative bruit Neck Mass: Negative Neck mass Chest Chest inspection: normal inspection of the chest, symmetric chest movement and normal respiratory effort Auscultation: Bilateral: Clear to Auscultation Cardio Palpation: normal PMI Rate: regular rate Rhythm: regular rhythm Heart sounds: S1 normal and S2 normal; negative rub, gallop or murmur GI GI: normal to inspection, soft and bowel sounds present; negative tender Neuro General: alert, awake, oriented x3, CN's II-XI intact bilaterally and moves all extremities Skin Skin: no rashes or lesions noted Extremities Pulses: Normal: Right Posterior Tibial Pulse, Left Posterior Tibial Pulse, Right Radial Pulse, Left Radial Pulse Lower Extremity Edema: None: Bilateral Psych Psychological: normal affect Assessment AND Plan 1. Atherosclerosis of [place] coronary artery of [place] heart without angina pectoris I25.10 Plan At the present time he appears to be doing well overall. He will continue his current risk factor modification medical therapy. 2. Premature ventricular beat I49.3 Plan He has had no concerning ectopy or associated adverse events. He will continue medical management and follow-up. 3. Paroxysmal ventricular tachycardia I47.2 Plan Again he has had no concerning ventricular dysrhythmias or associated adverse events. He will continue medical management and follow-up. 4. Syncope and collapse R55 Plan There is been no recurrent syncopal events. He will continue his current therapy and follow-up. Plan Detail Additional Comments He will be scheduled for an outpatient visit approximately 1 year unless needed sooner. Thank you for allowing me to participate in the care of your patient. Please don't hesitate to call if any issues arise. This note was generated using a voice recognition system and there may be incorrect words, spelling or punctuation that were not noted when reviewing the office note prior to saving. Follow Up 1 Year (PFM) Coding Level of Care Code Off vis,est,level 3 Diagnoses Atherosclerosis of [place] coronary artery of [place] heart without angina pectoris I25.10 [place] vs. transplanted heart: [place] heart Premature ventricular beat I49.3 Paroxysmal ventricular tachycardia I47.2 Syncope and collapse R55 Coding Level of Care Code Off vis,est,level 3 Diagnoses Atherosclerosis of [place] coronary artery of [place] heart without angina pectoris I25.10 [place] vs. transplanted heart: [place] heart Premature ventricular beat I49.3 Paroxysmal ventricular tachycardia I47.2 Syncope and collapse R55 Supplemental Info Supplemental Information Transthoracic echocardiogram: 05-21-10 Interpretation Summary Left ventricular systolic function is normal. The estimated ejection fraction is 60 % Trivial mitral valve insufficiency. Trivial tricuspid valve insufficiency. Right ventricular systolic pressure estimated to he 20 mmHg. Comment: The aforementioned procedure was performed during sinus rhythm with frequent premature ectopic complexes EXERCISE TOLERANCE TEST: 10-11-12 The patient exercised on a [place] protocol for 9 minutes completing stage 3 achieving a peak heart rate of 95 beats per minute (60% predicted maximum heart rate) and a peak blood pressure of 122/56 mmHg and a peak MET capacity of approximately 10 METs. The resting ECG demonstrated sinus bradycardia. The peak exercise ECG demonstrated no obvious ECG changes at the heart rate achieved. There was a rare PVC pretest, rare to occasional PVC during exercise recovery. There was no complaint of chest discomfort during exercise or recovery. The patient stopped secondary to dyspnea. IMPRESSION: 1. Technically inadequate (percent predicted maximum heart rate less than 85%) exercise tolerance test. 2. Peak exercise ECG with no obvious ECG changes. 3. Rare PVC pretest and rare to occasion PVC during exercise recovery. 4. Pharmacologic (regadenoson) evaluation pending. The patient underwent pharmacologic (regadenoson) evaluation with a peak heart rate of 85 beats per minute (54 /s predicted maximum heart rate) and a peak blood pressure of 96/58 mmHg. The resting ECG demonstrated normal sinus rhythm. The peak pharmacologic ECG demonstrated no obvious ECG changes. There was an occasional PVC pretest, during infusion and recovery. There was no complaint of chest discomfort during pharmacologic infusion or recovery. IMPRESSION: 1. Pharmacologic (regadenoson) evaluation. 2. Peak pharmacologic ECG with no obvious ECG changes. 3. Occasional PVC pretest during infusion and recovery. 4. Nuclear images pending. MYOCARDIAL PERFUSION IMAGING STUDY: TECHNIQUE: The patient was injected with 12,0 mCi of Tc99m Cardiolite and subsequently rest SPECT Cardiolite nuclear imaging was obtained in the horizontal long, vertical long and short axes views. The patient exercised on a [place] protocol for 9 minutes achieving a peak heart rate of 95 beats per minute (60% predicted maximum heart rate) with a peak blood pressure of 1 22/56 mmHg and a peak MET capacity of approximately 10 METs, The patient then underwent pharmacologic (regadenoson) evaluation with a peak heart rate of 85 beats per minute, 54% predicted maximum heart rate and a peak blood pressure of 96/58 mmHg. The patient was injected with 33.0 mCi of Tc99m Cardiolite and subsequently stress SPECT Cardiolite nuclear imaging obtained in the horizontal long, vertical long, and short axes views. Gated Cardiolite study at peak stress was obtained. INTERPRETATION: Rest and stress SPECT Cardiolite nuclear imaging demonstrate extra cardiac/hepatic and gastrointestinal tracer uptake near the inferior segments being more prominent at rest as opposed to stress, At rest there appears to be subtle diminished tracer uptake in portions of the basal inferior segments, which appeared to improve and/or normalize following stress. There is end systolic thickening and brightening. The gated Cardiolite study demonstrates myocardial thickening and inward wall motion. The reported LVEF is 66%. There are no myocardial perfusion changes considered diagnostic for stress induced myocardial ischemia or previous myocardial injury/infarction. IMPRESSION: 1. Rest and stress SPECT Cardiolite nuclear imaging demonstrate myocardial perfusion changes appearing compatible with resting soft tissue attenuation/artifact, which appear to improve and/or normalize following stress with no myocardial perfusion changes considered diagnostic for stress induced myocardial ischemia or previous myocardial injury/infarction. 2. The gated Cardiolite study reports an LVEF of 66%. Cardiac catheterization: 08-05-12: [place], [place] DIAGNOSTIC IMPRESSIONS 1. Coronary atherosclerotic heart disease. I. Borderline significant mid left anterior descending stenosis with a component of myocardial bridging in that segment. question its hemodynamic significance, 2. Normal dominant left circumflex artery, 3. Normal non dominant right coronary artery. Normal left ventricular systolic function with an overall estimated ejection function of 60-65%. Labs LDL Cholesterol 67 mg/dL (0-130) 11/22/15 HDL Cholesterol 58 mg/dL (40-) 11/22/15 Triglycerides 69 mg/dL (-199) 11/22/15 VLDL Cholesterol 14 mg/dL (5-40) 11/22/15 Diagnostics Chest X-Ray 02/12/14 Pulmonary Pulmonary Function Test 03/01/14 02/20/19 1533 <Electronically signed by Michael Hdz MD> Date Michael Hdz MD Cosigner Signature: Date (if applicable) CC: Connie Fast DO Connie Fast Start: 01-07-2018 End: 01-07-2018 Cardiology Visit Report Comments: See Note; NOTES: [facility] [address] [place] [address] OFFICE VISIT Date of Service: 01/07/18 MR#: [id number] Acct: [id number] Name: ADRIAN TROY Rep #: [id number] : 1950 Provider: Vlad Reyna Age/Sex: 67/M Location: [facility] Status: Signed HPI HPI Details: ADRIAN TROY, is a 67 M who presents to the office today for a cardiovascular follow-up. He has a history of coronary artery disease, possible coronary artery related vasospasm, near syncope, ventricular tachycardia. From a cardiac standpoint, patient is doing well. He does not have any chest discomfort/heaviness/tightne ss. His exercise tolerance is stable for his age. He does not have any worsening symptoms of shortness of breath. He denies any PND. He does not have any orthopnea. He does not have any symptoms of congestive heart failure. He does not have any palpitations that he is aware of. He does not have any lightheadedness or dizziness. He does not have any near-syncope or syncope. He does not have any lower extremity edema. He does not have any symptoms of claudication. Intake Vital Signs01/07/18 Height 5 ft 11 in 01/07/18 Weight: 175 lb 01/07/18 Body Mass Index (BMI) 24.4 01/07/18 Blood Pressure 95/70 Intake Visit Reasons: overdue for OV to refill meds Pharmacy Helper Required: No Is patient in pain?: No Allergies No Known Allergies Allergy (Unverified 01/07/18 15:07) Medications aspirin 81 mg tablet,delayed release 81 mg PO QDAY 07/12/17 [History Confirmed 01/07/18] amlodipine 5 mg tablet 5 mg PO QDAY #90 tab 01/04/18 [Rx Confirmed 01/07/18] propranolol ER 60 mg capsule,24 hr,extended release 60 mg PO QDAY #90 cap 01/04/18 [Rx Confirmed 01/07/18] nitroglycerin 0.4 mg sublingual tablet 0.4 mg SUBLINGUAL Q5M PRN #25 tab 01/07/18 [Rx Confirmed 01/07/18] [facility] Medical History Atherosclerotic heart disease of [place] coronary artery without angina pectoris (Chronic) Premature ventricular contraction (Chronic) Syncope and collapse (Chronic) Paroxysmal ventricular tachycardia (Resolved) Abnormal EKG (Acute) BPH (benign prostatic hyperplasia) (Acute) COPD (chronic obstructive pulmonary disease) (Acute) Chest pain (Acute) GI bleed (Acute) Hyperlipidemia (Acute) Nonspecific abnormal cardiovascular system function study (Acute) Surgical History History of back surgery (Resolved) History of tonsillectomy (Resolved) Family History Mother CAD (coronary artery disease) Brother CAD (coronary artery disease) Hx of CABG Sister Hypertension Social History Smoking Status: Never smoker alcohol intake: current substance use type: does not use ROS Const Const: Negative for weakness, fatigue, fever(s) or headache(s) Eyes Eyes: Negative for blind spots, loss of peripheral vision or transient loss of vision ENT ENT: Negative for headache(s), dizziness, tinnitus or Nosebleed/epistaxis Cardio Chest Pain: No Palpitations: No Edema: None Muscle aches with walking: None Resp Respiratory: Negative for SOB with activity, SOB at rest, SOB orthopnea\SOB lying down or Cough GI GI: Negative nausea, vomiting, heartburn or vomiting blood/hematemesis : Negative for hematuria Musc Musc: Negative for muscle aches/ myalgia Neuro Neuro: Negative for weakness, headache(s), dizziness, near syncope, syncope, lightheadedness or orthostatic symptoms Sameer Hematologic/Lymphatic: Negative for easy bleeding Endo Endo: Negative for fatigue Cardiology Exam Const Appearance: cooperative, no acute distress and well developed Orientation: alert, awake and oriented x3 Head Head: normocephalic and atraumatic Mouth: moist mucous membranes Eyes General: appearance normal, both eyes and all related structures Conjunctivae: conjunctivae normal Pupils: PERRL EOM: EOM intact bilaterally Neck Neck: normal visual inspection, no lymphadenopathy and no JVD Carotids: Negative bruit Neck Mass: Negative Neck mass Chest Chest inspection: normal inspection of the chest and symmetric chest movement Auscultation: Bilateral: Clear to Auscultation Cardio Palpation: normal PMI Rate: regular rate Rhythm: regular rhythm Heart sounds: S1 normal and S2 normal; negative rub, gallop or murmur GI GI: normal to inspection, soft, no hepatosplenomegaly and bowel sounds present; negative tender Neuro General: alert, awake, oriented x3, CN's II-XI intact bilaterally and moves all extremities Extremities Pulses: Normal: Right Posterior Tibial Pulse, Left Posterior Tibial Pulse, Right Radial Pulse, Left Radial Pulse Lower Extremity Edema: None: Bilateral Psych Psychological: normal affect Supplemental Info Heart catheterization in 2013 done at [facility] demonstrated borderline significant mid LAD stenosis FFR was 0.9. Normal left circumflex. Normal RCA. Assessment AND Plan 1. Atherosclerosis of [place] coronary artery of [place] heart without angina pectoris I25.10 Plan Stable, from a cardiac standpoint patient does not have any symptoms of angina. We recommend that they continue with current aggressive medical management and risk factor modification. Patient does keep himself active. Do not feel that any additional testing needs to be done at this time. 2. Paroxysmal ventricular tachycardia I47.2 Plan Patient has not had any further symptomatic recurrence. We will continue to monitor. 3. Syncope and collapse R55 Plan Patient has not had any further symptomatic recurrence. We will continue to monitor. Plan Detail Other Medications New: Additional Comments Thank you for allowing us to participate in patient's plan of care, if you have any questions please do not hesitate to call. This note was generated using a voice recognition system and there may be incorrect words, spelling or punctuation errors that were not noted when reviewing the office note prior to saving. Follow Up 1 Year (PFM) Coding Level of Care Code Off vis,est,level 3 Diagnoses Atherosclerosis of [place] coronary artery of [place] heart without angina pectoris I25.10 [place] vs. transplanted heart: [place] heart Paroxysmal ventricular tachycardia I47.2 Syncope and collapse R55 Coding Level of Care Code Off vis,est,level 3 Diagnoses Atherosclerosis of [place] coronary artery of [place] heart without angina pectoris I25.10 [place] vs. transplanted heart: [place] heart Paroxysmal ventricular tachycardia I47.2 Syncope and collapse R55 01/07/18 1554 <Electronically signed by Vlad KAY> Date Vlad KAY Cosigner Signature: Date (if applicable) CC: Netta Lawler Start: 06-18-2017 End: 06-18-2017 Ribs Unil 2V No CXR Comments: See Note; NOTES: [facility] Imaging Services [address] [place] [address] Ribs Unil 2V No CXR MR#: [id number] Acct: [id number] Name: ADRIAN TROY Rep #: [id number] : 1950 M 66 From: Adrien Garrett MD PCP: Netta Lawler DO Status: REG CLI Study: Ribs Unil 2V No CXR Date of Exam: 06/18/17 Exam# [id number] Ordering Dr: Jo Melgar STUDY: X-RAY - UNILATERAL RIBS ( RIGHT ) REASON FOR EXAM: Male, 66 years old. Right anterior mid rib pain. TECHNIQUE: 4 view(s) of the ribs. COMPARISON: None. FINDINGS: Normal visualized ribs without a demonstrated fracture. The visualized lung is clear and expanded. RAD/Ribs Unil 2V No CXR IMPRESSION: Normal x-ray examination of the ribs. Electronically Signed: Adrien Garrett MD at 13:24 EST Tel [phone], Service support , CC: Jo Melgar [employer]; Netta Lawler DO Rn Clinical Quality: Signed Jo Melgar Work Phone: Start: 12-25-2016 End: 12-25-2016 Follow Up Appt 6 months Michael Hdz MD Start: 12-25-2016 End: 12-25-2016 PFM Michael Hdz MD Start: 11-24-2016 End: 12-18-2016 *Hepatic Function Panel Michael Hdz MD Start: 11-24-2016 End: 12-18-2016 Lipid panel [AGGREGATE] Michael Hdz MD Start: 05-27-2016 End: 05-27-2016 Follow Up Appt 6 months Michael Hdz MD Start: 05-27-2016 End: 05-27-2016 PFM Michael Hdz MD Start: 10-28-2015 End: 11-27-2015 *Hepatic Function Panel Michael Hdz MD Start: 10-28-2015 End: 10-28-2015 Follow Up Appt 6 months Michael Hdz MD Start: 10-28-2015 End: 12-18-2016 Follow Up Appt Other Michael Hdz MD Start: 10-28-2015 End: 11-27-2015 Lipid panel [AGGREGATE] Michael Hdz MD Start: 10-28-2015 End: 10-28-2015 PFM Michael Hdz MD Start: 03-13-2015 End: 11-22-2015 *Hepatic Function Panel Michael Hdz MD Start: 03-13-2015 End: 03-14-2015 Documentation of current medications Michael Hdz MD Start: 03-13-2015 End: 12-18-2016 Follow Up Appt 1 year Michael Hdz MD Start: 03-13-2015 End: 10-28-2015 Lipid panel [AGGREGATE] Michael Hdz MD Start: 03-13-2015 End: 12-18-2016 PFM Michael Hdz MD Start: 08-29-2014 End: 08-30-2014 Documentation of current medications Michael Hdz MD Start: 08-29-2014 End: 08-29-2014 Follow Up Appt 6 months Michael Hdz MD Start: 08-29-2014 End: 08-29-2014 PFM Michael Hdz MD Start: 08-26-2014 End: 10-28-2015 *Hepatic Function Panel Vlad Reyna PA-C Work Phone: Start: 08-26-2014 End: 12-18-2016 Lipid panel [AGGREGATE] Vlad Reyna PA-C Work Phone: Start: 03-05-2014 End: 03-05-2014 Pulmonary Function Report Comp Comments: See Note; NOTES: [facility] Pulmonary Services/Neurology [address] [place] [address] Pulmonary Function Test (Comp) MR#: [id number] Acct: [id number] Name: ADRIAN TROY Rep #: [id number] : 1950 63 From: Salvador Greenberg MD Referring Dr: Jo Melgar Status: REG CLI Ordering Dr: Jo Melgar Date: 03/01/14 Location: N Sex: M C ADDENDUM by Salvador Greenberg MD on 03/02/14 at 0800 SPIROMETRY Ref ULN/LLN Pre Pre Post Post Post Dinora % Ref Dinora % Ref % Chg FVC (L) 4.67 (3.4 - 5.9) 4.78 102 4.86 104 2 FEV1 (L) 3.22 (2.3 - 4.7) 3.44 107 3.57 111 4 FEV1/FVC (%) 69 (56.7 - 82.3) 72 73 FEV6 4.57 4.62 1 FEF 25-75% (L/sec) 2.97 (1.1 - 4.8) 2.30 77 2.59 87 13 FEF 50% (L/sec) 4.43 (1.8 - 7.1) 3.32 75 4.66 105 40 FEF 75% (L/sec) 1.63 (0.2 - 3.1) 0.69 42 0.75 46 9 PEF (L/sec) 8.71 (4.8 - 12.6) 9.63 111 9.34 107 -3 FET 100% (sec) 11.63 12.15 4 FIVC (L/min) 4.67 (3.3 - 6.0) 5.15 110 4.66 100 -10 FEF/FIF50 0.55 0.81 47 MVV (L/min) DIFFUSION Ref ULN/LLN Pre Pre Post Post Dinora % Ref Dinora % Ref DLCO (ml/min/mmHg) 21.6 (13.3 - 29.9) 26.5 123 DL Adj (ml/mmHg/min) 21.6 (13.3 - 29.9) 26.5 123 DLCO/VA (ml/mHg/min/L) 3.67 (1.8 -5.5) 4.23 115 VA (L) 7.30 (6.2 - 8.5) 6.28 86 IVC (L) 4.15 DL/VA Adj (ml/mHg/min/L) PLETHYSMOGRAPHY Ref ULN/LLN Pre Pre Post Post Post LUNG SOUNDS (BTPS) Dinora % Ref Dinora % Ref % Chg TLC (L) 6.84 (5.8 - 7.8) 7.54 110 VC (L) 4.67 (3.3 - 6.0) 5.28 113 IC (L) 3.16 (2.4 - 3.9) 3.[address] (L) 4.04 (2.8 - 8.2) 4.27 106 ERV (L) 1.58 (1.2 - 1.9) 1.97 125 RV (L) 2.51 (1.7 - 3.3) 2.26 90 RV/TLC (%) 39 (26.6 - 50.7) 30 RESISTANCE Ref Pre Pre Post Post Post Dinora % Ref Dinora % Ref % Chg Raw Total (cmH20/L/sec) Raw Insp (cmH20/L/sec) Raw Exp (cmH20/L/sec) Raw (cmH20/L/sec) 1.08 0.82 76 GAW (L/sec/cmH20) sGAW (L/s/cmH20/L) 0.229 0.247 108 Vtg (Raw) (Liters) PFT COMMENTS: Spirometry data is acceptable and reproducible. Aerosol given with unit dose albuterol. Pt gave good effort for testing. Patient requested Dr. Greenberg to read. 03/05/14 1712 <Electronically signed by Salvador Greenberg MD> Date cc: Jo Melgar; Salvador Greenberg MD; Connie Wilson DO; JO MELGAR * Signed Date: 03/01/14 Tech.: Temp: PBar: Height(in.): Weight(lbs.): Diagnosis: Medication: : Dyspnea Rest: Dyspnea Exercise: Cough: Productive (cc): Persistent: Smoker: How Long (pk/yrs): Stopped (yrs): Cigarettes: Cigars: BRIEF HISTORY OF PRESENT ILLNESS: The patient is a 63 -year-old male, currently under the care of Jo Melgar, that presents for a complete pulmonary function test secondary to a diagnosis of COPD. Respiratory therapist reported good effort and reproducible results. INTERPRETATION: Forced expiration spirometry demonstrates no large airway obstructive ventilatory defect. There is no significant bronchodilator affect using strict ATS criteria. Spirograms are of good quality and do not plateau indicating slowly emptying areas of the lung. Respiratory flow volume loop shows decreased expiratory flow rates at the high lung volumes consistent with small airways obstruction. Lung volumes by body plethysmography show a borderline elevated total lung capacity. Other lung volumes are within normal limits. Diffusion capacity by single-breath carbon monoxide is elevated at 123% of predicted. Airway resistance is normal. No previous studies are available for comparison. IMPRESSION: These pulmonary function tests are within normal limits. The elevated diffusion capacity along with decreased mid flows may indicate an element of asthma. Consider bronchoprovocation study, if this is clinically indicated. 03/02/14 1405 <Electronically signed by Salvador Greenberg MD> Date Salvador Greenberg MD CC: Jo Melgar; Salvador Greenberg MD; Connie Wilson DO; JO MELGAR Date Dictated: 03/01/14 1302 Date Transcribed: 03/02/14 1306 Rn Clinical Quality: DAIANA Signed Netta Lawler Start: 03-02-2014 End: 03-02-2014 Pulmonary Function Report Comp Comments: See Note; NOTES: [facility] Pulmonary Services/Neurology [address] [place] [address] Pulmonary Function Test (Comp) MR#: [id number] Acct: [id number] Name: ADRIAN TROY Rep #: [id number] : 1950 63 From: Salvador Greenberg MD Referring Dr: Jo Melgar Status: REG CLI Ordering Dr: Jo Melgar Date: 03/01/14 Location: PSN Sex: M C Date: 03/01/14 Tech.: Temp: PBar: Height(in.): Weight(lbs.): Diagnosis: Medication: : Dyspnea Rest: Dyspnea Exercise: Cough: Productive (cc): Persistent: Smoker: How Long (pk/yrs): Stopped (yrs): Cigarettes: Cigars: BRIEF HISTORY OF PRESENT ILLNESS: The patient is a 63 -year-old male, currently under the care of Jo Melgar, that presents for a complete pulmonary function test secondary to a diagnosis of COPD. Respiratory therapist reported good effort and reproducible results. INTERPRETATION: Forced expiration spirometry demonstrates no large airway obstructive ventilatory defect. There is no significant bronchodilator affect using strict ATS criteria. Spirograms are of good quality and do not plateau indicating slowly emptying areas of the lung. Respiratory flow volume loop shows decreased expiratory flow rates at the high lung volumes consistent with small airways obstruction. Lung volumes by body plethysmography show a borderline elevated total lung capacity. Other lung volumes are within normal limits. Diffusion capacity by single-breath carbon monoxide is elevated at 123% of predicted. Airway resistance is normal. No previous studies are available for comparison. IMPRESSION: These pulmonary function tests are within normal limits. The elevated diffusion capacity along with decreased mid flows may indicate an element of asthma. Consider bronchoprovocation study, if this is clinically indicated. 03/02/14 1405 <Electronically signed by Salvador Greenberg MD> Date Salvador Greenberg MD CC: Jo Melgar; Salvador Greenberg MD; Connie Wilson DO; JO MELGAR Date Dictated: 03/01/14 1302 Date Transcribed: 03/02/14 1306 Rn Clinical Quality: TC Signed Netta Lawler Start: 02-28-2014 End: 02-28-2014 Follow Up Appt 6 months Michael Hdz MD Start: 02-28-2014 End: 02-28-2014 PFM Michael Hdz MD Start: 02-12-2014 End: 02-12-2014 Chest PA and Lateral Comments: See Note; NOTES: [facility] Imaging Services [address] [place] [address] Radiology Report MR#: [id number] Acct: [id number] Name: ADRIAN TROY Rep #: [id number] : 1950 M 63 From: Randell Cutler DO PCP: Connie Wilson DO Status: REG CLI Study: Chest PA and Lateral Date of Exam: 02/12/14 Exam# [id number] Ordering Dr: Jo Melgar STUDY: X-RAY CHEST REASON FOR EXAM: Male, 63 years old. Left chest pain during inhalation. TECHNIQUE: PA and lateral views of the chest. COMPARISON: None. FINDINGS: There is hyperinflation of the lungs consistent with chronic obstructive lung disease (COPD). There is no demonstrated pleural abnormality. Normal size heart. Normal mediastinum and rowena. Normal visualized pulmonary arteries. Normal visualized aortic arch and descending thoracic aorta. There is demineralization of the osseous structures. Normal visualized ribs, clavicles, and shoulders. There appears to be a pectus excavatum deformity of the lower sternum. There is no demonstrated abnormality of the visualized soft tissue structures of the upper abdomen. IMPRESSION: Probable COPD without acute pulmonary disease. Electronically Signed: Randell Cutler DO at 17:55 EDT Tel [phone], Service support [phone], RAD/Chest PA and Lateral IMPRESSION: Probable COPD without acute pulmonary disease. Electronically Signed: Randell Cutler DO at 17:55 EDT Tel [phone], Service support [phone], CC: Jo Melgar; Connie Wilson DO Rn Clinical Quality: Signed Jo Melgar Work Phone: Start: 08-23-2013 End: 09-07-2013 *Hepatic Function Panel Michael Hdz MD Start: 08-23-2013 End: 10-28-2015 Electrocardiogram, complete Michael Hdz MD Start: 08-23-2013 End: 08-23-2013 Follow Up Appt 6 months Michael Hdz MD Start: 08-23-2013 End: 10-28-2015 Follow Up Appt Other Michael Hdz MD Start: 08-23-2013 End: 09-07-2013 Lipid panel [AGGREGATE] Michael Hdz MD Start: 08-23-2013 End: 08-23-2013 PFM Michael Hdz MD Start: 06-28-2013 End: 10-28-2015 *Hepatic Function Panel Michael Hdz MD Start: 06-28-2013 End: 10-28-2015 Lipid panel [AGGREGATE] Michael Hdz MD Start: 01-25-2013 End: 01-25-2013 Follow Up Appt 6 months Michael Hdz MD Start: 01-25-2013 End: 01-25-2013 PFM Michael Hdz MD Start: 10-18-2012 End: 10-27-2012 24 hour holter monitor Michael Hdz MD Start: 08-31-2012 End: 10-27-2012 24 hour holter monitor Michael Hdz MD Start: 06-16-2012 End: 06-30-2012 *Hepatic Function Panel Michael Hdz MD Start: 06-16-2012 End: 12-18-2016 Follow Up Appt 6 months Michael Hdz MD Start: 06-16-2012 End: 06-30-2012 Lipid panel [AGGREGATE] Michael Hdz MD Start: 06-16-2012 End: 09-20-2012 Stress Echocardiogram (treadmill) Michael Hdz MD Start: 12-11-2011 End: 12-11-2011 Follow Up Appt 6 months Michael Hdz MD Start: 12-11-2011 End: 12-11-2011 Lipid panel [AGGREGATE] Michael Hdz MD LIPOMA REMOVED OFF BACK- PETE- 2020 Connie A Fast DO Work Phone: LIPOMA REMOVED OFF BACK- PETE- 2020 Kimmie Manchak AIR INTELLIGENCE SPECIALIST LIPOMA REMOVED OFF BACK- PETE- 2020 Kimmie Mantawnyak [facility] Urologist Kimmie Gifford [facility] Comment on above: Dr. jamaica Sanchez in [place], [place] Urologist Kimmie Gifford [facility] Comment on above: Dr. jamaica Sanchez in [place], [place] Urologist Kimmie Gifford [facility] Comment on above: Dr. jamaica Sanchez in [place], [place] Plan of Treatment Date Care Activity Detail Author Start: 03-29-2023 Immunofixj electrophoresis other fluids urine immunofixation (37078) [facility]; [facility] Work Phone: Start: 03-29-2023 Assay of nephelometry each analyte jayden Serum Free Light Chains (10090) [facility]; [facility] Work Phone: Start: 03-29-2023 Assay of gammaglobulin iga igd igg igm each IMMUNOFIXATION, SERUM (62371) [facility]; [facility] Work Phone: Start: 03-29-2023 Blood count complete auto&auto difrntl wbc CBC W/AUTO DIFF WBC (80282) [facility]; [facility] Work Phone: Start: 03-29-2023 Comprehensive metabolic panel METABOLIC PANEL, COMPREHENSIVE (18342) [facility]; [facility] Work Phone: Start: 03-29-2023 Procedure Education Eprescribed prescriptions (G8553) [facility]; [facility] Work Phone: Start: 03-18-2023 Assay of prostate specific antigen total PSA TOTAL (RFLX FREE) 293000 (62273) [facility]; [facility] Work Phone: Start: 04-06-2022 Procedure Education Eprescribed prescriptions (G8553) [facility]; [facility] Work Phone: Start: 04-06-2022 Immunofixj electrophoresis other fluids urine immunofixation (86827) [facility]; [facility] Work Phone: Start: 04-06-2022 Sedimentation rate rbc non-automated SED RATE ERYTHROCYTE (05253) [facility]; [facility] Work Phone: Start: 04-06-2022 C-reactive protein C-REACTIVE PROTEIN (71871) [facility]; [facility] Work Phone: Start: 04-06-2022 Assay of gammaglobulin iga igd igg igm each IMMUNOFIXATION, SERUM (39620) [facility]: Start: 04-06-2022 Assay of nephelometry each analyte jayden Serum Free Light Chains (03754) [facility]; [facility] Work Phone: Start: 04-06-2022 Dna antibody [place]/double stranded dsDNA ANTIBODY by IFA, Desiree Cortes, with Reflex to Titer (71598) [facility]; [facility] Work Phone: Start: 04-06-2022 Antinuclear antibodies marlyn MARLYN (ANTINUCLEAR ANTIBODY) (06844) [facility]; [facility] Work Phone: Start: 02-25-2022 Following clinical pathway protocol [facility] Work Phone: Start: 04-17-2021 End: 04-17-2021 ambulatory 04/17/2021 Treatment Rehabilitation Connie Wilson, DO [address] [place] [address] [address] [place], [place] [id number] Naveen Mayer, PT [facility] [place] [facility] Start: 04-14-2021 End: 04-14-2021 ambulatory 04/14/2021 Treatment Rehabilitation Connie Wilson, [address] [place], [place] [id number] Wilma Cooley, [facility] Start: 04-10-2021 End: 04-10-2021 ambulatory 04/10/2021 Treatment Rehabilitation Connie Wilson, [address] [place], [place] [id number] 606- Wilma Cooley, [facility] Start: 04-07-2021 End: 04-07-2021 ambulatory 04/07/2021 Treatment Rehabilitation Connie Wilson, [address] [place], [place] [id number] 921- Rosa Blum [facility] Start: 04-04-2021 End: 04-04-2021 ambulatory 04/04/2021 Treatment Rehabilitation Connie Wilson, [address] [place], [place] [id number] 394- Vlad East [facility] Start: 04-01-2021 Procedure Education Eprescribed prescriptions (G8553) [facility] Work Phone: Start: 04-01-2021 Dna antibody [place]/double stranded dsDNA ANTIBODY by IFA, Desiree Cortes, with Reflex to Titer (37083) [facility]; [facility] Work Phone: Start: 04-01-2021 C-reactive protein C-REACTIVE PROTEIN (25955) [facility]; [facility] Work Phone: Start: 04-01-2021 Sedimentation rate rbc non-automated SED RATE ERYTHROCYTE (18544) [facility]; [facility] Work Phone: Start: 04-01-2021 Antinuclear antibodies marlyn MARLYN (ANTINUCLEAR ANTIBODY) (01071) [facility]; [facility] Work Phone: Start: 04-01-2021 Immunofixj electrophoresis other fluids urine immunofixation (80976) [facility]; [facility] Work Phone: Start: 04-01-2021 Assay of nephelometry each analyte jayden Serum Free Light Chains (95727) [facility]; [facility] Work Phone: Start: 04-01-2021 Assay of gammaglobulin iga igd igg igm each IMMUNOFIXATION, SERUM (11977) [facility]; [facility] Work Phone: Start: 03-31-2021 End: 03-31-2021 ambulatory 03/31/2021 Evaluation Rehabilitation Connie Wilson DO [facility] [address] [address] Naveen Mayer, PT [facility] Start: 03-11-2021 Procedure Education Eprescribed prescriptions (G8553) [facility]; [facility] Work Phone: Start: 02-26-2021 Influenza vaccination Sequential Influenza Vaccine (#1) [facility] Start: 04-19-2020 C-reactive protein C-REACTIVE PROTEIN (46121) [facility]; [facility] Work Phone: Start: 04-19-2020 CRP [Mass/Vol] C-REACTIVE PROTEIN (97719) [facility] Work Phone: Start: 04-19-2020 Sedimentation rate rbc non-automated ESR-F (SED RATE ERYTHROCYTE - MALE) (89758) [facility] Work Phone: Start: 04-19-2020 Immunofixj electrophoresis other fluids urine immunofixation (41251) [facility] Work Phone: Start: 04-19-2020 Assay of gammaglobulin iga igd igg igm each IMMUNOFIXATION, SERUM (38160) [facility] Work Phone: Start: 04-19-2020 Dna antibody [place]/double stranded dsDNA ANTIBODY by IFA, Desiree Cortes, with Reflex to Titer (70475) [facility] Work Phone: Start: 04-19-2020 Antinuclear antibodies marlyn MARLYN (ANTINUCLEAR ANTIBODY) (55715) [facility]; [facility] Work Phone: Start: 04-19-2020 Nuclear Ab IF (S) [Titer] MARLYN (ANTINUCLEAR ANTIBODY) (77095) [facility] Work Phone: Start: 04-19-2020 Urnls dip stick/tablet reagent auto microscopy URINALYSIS, W/ MICRO (78441) [facility] Work Phone: Start: 04-19-2020 Blood count complete auto&auto difrntl wbc CBC W/AUTO DIFF WBC (05045) [facility] Work Phone: Start: 04-19-2020 Comprehensive metabolic panel METABOLIC PANEL, COMPREHENSIVE (19611) [facility] Work Phone: Start: 04-12-2020 Protein total xcpt refractometry urine UPEP (91034) [facility] Work Phone: Start: 04-12-2020 Protein electrophoretic fractj&quantj serum SPEP (86984) [facility] Work Phone: Start: 04-12-2020 Extractable nuclear antigen antibody any method Systemic Lupus Profile (02319) [facility] Work Phone: Start: 04-09-2020 Procedure Education Eprescribed prescriptions (G8553) [facility] Work Phone: Start: 04-09-2020 C-reactive protein C-Reactive Protein (08774) [facility]; [facility] Work Phone: Start: 04-09-2020 CRP [Mass/Vol] C-Reactive Protein (37322) [facility] Work Phone: Start: 04-09-2020 Rheumatoid factor quantitative RHEUMATOID FACTOR-QUANT (19265) [facility] Work Phone: Start: 04-09-2020 Antinuclear antibodies marlyn MARLYN (ANTINUCLEAR ANTIBODY) (10229) [facility]; [facility] Work Phone: Start: 04-09-2020 Nuclear Ab IF (S) [Titer] MARLYN (ANTINUCLEAR ANTIBODY) (04051) [facility] Work Phone: Start: 04-09-2020 Sedimentation rate rbc non-automated ESR-F (SED RATE ERYTHROCYTE - MALE) (83770) [facility] Work Phone: Start: 03-06-2020 Assay of testosterone free TESTOSTERONE FREE (24163) [facility] Work Phone: Start: 03-06-2020 Assay of triiodothyronine t3 free FREE TRIIDOTHYRONINE (T3) (46227) [facility] Work Phone: Start: 03-06-2020 TSH Qn TSH (THYROID STIMULATING HORMONE) (73143) [facility] Work Phone: Start: 03-06-2020 Free T4 [Mass/Vol] T4, FREE (56258) [facility] Work Phone: Start: 12-01-2019 Procedure Education Eprescribed prescriptions (G8553) [facility] Work Phone: Start: 12-01-2019 Assay of prostate specific antigen total PSA (PROSTATE SPECIFIC ANTIGEN) (13063) [facility] Work Phone: Start: 12-01-2019 Urnls dip stick/tablet reagent auto microscopy URINALYSIS, W/ MICRO (67605) [facility] Work Phone: Start: 12-01-2019 Blood count complete auto&auto difrntl wbc CBC W/AUTO DIFF WBC (53305) [facility] Work Phone: Start: 12-01-2019 Comprehensive metabolic panel METABOLIC PANEL, COMPREHENSIVE (32649) [facility] Work Phone: Start: 03-21-2019 Procedure Education Eprescribed prescriptions (G8553) [facility] Work Phone: Start: 12-27-2018 Provider Instructions for Treatment Shoulder Injection [facility] Work Phone: Start: 12-16-2018 Assay of testosterone free TESTOSTERONE FREE (52213) [facility] Work Phone: Comment on above: to have drawn in 1 week from 12/16/18 in AM to have drawn in 2 w eeks from 12/16/18 around noon Start: 12-14-2018 Assay of testosterone free TESTOSTERONE FREE (11232) [facility] Work Phone: Start: 12-14-2018 Procedure Education Eprescribed prescriptions (G8553) [facility] Work Phone: Start: 11-22-2018 Urinalysis qual/semiquant except immunoassays URINALYSIS (32590) [facility] Work Phone: Start: 11-22-2018 Blood count complete automated CBC & PLATELETS (AUTO) (99786) [facility] Work Phone: Start: 11-22-2018 Comprehensive metabolic panel METABOLIC PANEL, COMPREHENSIVE (42067) [facility] Work Phone: Start: 04-08-2018 Procedure Education Eprescribed prescriptions (G8553) [facility] Work Phone: Start: 04-04-2018 Provider Instructions for Treatment [facility] Work Phone: Start: 04-04-2018 Lipid panel LIPID PANEL (45744) [facility] Work Phone: Start: 04-04-2018 Assay of prostate specific antigen total PSA (PROSTATE SPECIFIC ANTIGEN) (V76.44) [facility] Work Phone: Start: 04-04-2018 Protein mass conc PSA (PROSTATE SPECIFIC ANTIGEN) (V76.44) [facility] Work Phone: Start: 07-14-2017 End: 07-14-2017 Appointment Appointment [email or web address] Work Phone: Start: 06-18-2017 Procedure Education Eprescribed prescriptions (G8553) [facility] Work Phone: Start: 06-18-2017 Provider Instructions for Treatment Follow up if no improvement or if symptoms worsen [facility] Work Phone: Start: 12-25-2016 End: 12-25-2016 Appointment Appointment [employer] Work Phone: Start: 12-25-2016 End: 12-25-2016 Follow Up Appt 6 months Follow Up Appt 6 months [facility] Work Phone: Start: 12-25-2016 End: 12-25-2016 PFM PFM [email or web address] Work Phone: Start: 11-24-2016 Procedure Education Eprescribed prescriptions (G8553) [facility] Work Phone: Start: 11-24-2016 End: 12-18-2016 *Hepatic Function Panel *Hepatic Function Panel [email or web address] Work Phone: Start: 11-24-2016 End: 12-18-2016 Lipid panel [AGGREGATE] *Lipid Profile CC PCP [email or web address] Work Phone: Start: 05-27-2016 End: 05-27-2016 Follow Up Appt 6 months Follow Up Appt 6 months [facility] Work Phone: Start: 05-27-2016 End: 05-27-2016 PFM PFM [email or web address] Work Phone: Start: 04-03-2016 Patient Education Flu (Influenza) *: flu shot [facility] Work Phone: Start: 04-03-2016 Provider Instructions for Treatment [facility] Work Phone: Start: 04-03-2016 Blood occult fecal hgb deter ia qual feces 1-3 FECAL OCCULT- Tubes sent home (95480) [facility] Work Phone: Start: 10-28-2015 End: 11-27-2015 *Hepatic Function Panel *Hepatic Function Panel [facility] Work Phone: Start: 10-28-2015 End: 10-28-2015 Follow Up Appt 6 months Follow Up Appt 6 months [facility] Work Phone: Start: 10-28-2015 End: 12-18-2016 Follow Up Appt Other Follow Up Appt Other [facility] Work Phone: Start: 10-28-2015 End: 11-27-2015 Lipid panel [AGGREGATE] *Lipid Profile CC PCP [facility] Work Phone: Start: 10-28-2015 End: 10-28-2015 PFM PFM [facility] Work Phone: Start: 03-13-2015 End: 11-22-2015 *Hepatic Function Panel *Hepatic Function Panel [facility] Work Phone: Start: 03-13-2015 End: 12-18-2016 Follow Up Appt 1 year Follow Up Appt 1 year [facility] Work Phone: Start: 03-13-2015 End: 10-28-2015 Lipid panel [AGGREGATE] *Lipid Profile CC PCP [facility] Work Phone: Start: 03-13-2015 End: 12-18-2016 PFM PFM [facility] Work Phone: Start: 08-29-2014 End: 08-29-2014 Follow Up Appt 6 months Follow Up Appt 6 months [facility] Work Phone: Start: 08-29-2014 End: 08-29-2014 PFM PFM [facility] Work Phone: Start: 08-26-2014 End: 10-28-2015 *Hepatic Function Panel *Hepatic Function Panel [facility] Work Phone: Start: 08-26-2014 End: 12-18-2016 Lipid panel [AGGREGATE] *Lipid Profile CC PCP [facility] Work Phone: Start: 2014 Fall risk assessment Falls Risk Assessment [facility] Start: 2014 Pneumococcal Vaccine: Age 65+ (1 of 1 - PPSV23) Pneumococcal Vaccine: Age 65+ (1 of 1 - PPSV23) [facility] Start: 05-21-2014 Procedure Education Eprescribed prescriptions (G8553) [facility] Work Phone: Start: 05-21-2014 Provider Instructions for Treatment Follow up if no improvement or if symptoms worsen [facility] Work Phone: Start: 02-28-2014 End: 02-28-2014 Follow Up Appt 6 months Follow Up Appt 6 months [facility] Work Phone: Start: 02-28-2014 End: 02-28-2014 PFM PFM [facility] Work Phone: Start: 02-20-2014 Provider Instructions for Treatment Follow up in [address] Wilson [facility] Work Phone: Start: 02-12-2014 Provider Instructions for Treatment Follow up next [facility] Work Phone: Start: 02-12-2014 Fibrin dgradj products d-dimer quantitative D-Dimer (77526) [facility] Work Phone: Comment on above: stat Start: 02-12-2014 Assay of troponin quantitative ASSAY, TROPONIN, QUANTITATIVE (aka Troponin I) (57065) [facility] Work Phone: Comment on above: stat Start: 02-12-2014 Troponin I.cardiac mass conc ASSAY, TROPONIN, QUANTITATIVE (aka Troponin I) (45951) [facility] Work Phone: Comment on above: stat Start: 02-12-2014 Creatine kinase mb fraction only CPK MB FRACTION (28927) [facility] Work Phone: Comment on above: stat Start: 02-12-2014 Myoglobin MYOGLOBIN (55709) [facility] Work Phone: Comment on above: stat Start: 02-12-2014 Myoglobin mass conc MYOGLOBIN (13521) [facility] Work Phone: Comment on above: stat Start: 11-27-2013 Provider Instructions for Treatment Follow up if no improvement or if symptoms worsen [facility] Work Phone: Start: 11-27-2013 Culture bacterial quanttative colony count urine URINE JANNY CULTURE-LELO COL COUNT (02283) [facility] Work Phone: Start: 11-27-2013 Urnls dip stick/tablet rgnt non-auto w/o micrscp Urinalysis, Office (50135) [facility] Work Phone: Start: 08-28-2013 Blood count manual cell count each CBC WITH MANUAL DIFF (19045) [facility] Work Phone: Start: 08-28-2013 Comprehensive metabolic panel METABOLIC PANEL, COMPREHENSIVE (01153) [facility] Work Phone: Start: 08-28-2013 Assay of prostate specific antigen total PSA (PROSTATE SPECIFIC ANTIGEN) (V76.44) [facility] Work Phone: Start: 08-28-2013 Protein mass conc PSA (PROSTATE SPECIFIC ANTIGEN) (V76.44) [facility] Work Phone: Start: 08-23-2013 End: 09-07-2013 *Hepatic Function Panel *Hepatic Function Panel [email or web address] Work Phone: Start: 08-23-2013 End: 10-28-2015 Electrocardiogram, complete EKG (In office) [facility] Work Phone: Start: 08-23-2013 End: 08-23-2013 Follow Up Appt 6 months Follow Up Appt 6 months [facility] Work Phone: Start: 08-23-2013 End: 10-28-2015 Follow Up Appt Other Follow Up Appt Other [facility] Work Phone: Start: 08-23-2013 End: 09-07-2013 Lipid panel [AGGREGATE] *Lipid Profile CC PCP [facility] Work Phone: Start: 08-23-2013 End: 08-23-2013 PFM PFM [facility] Work Phone: Start: 06-28-2013 End: 10-28-2015 *Hepatic Function Panel *Hepatic Function Panel [facility] Work Phone: Start: 06-28-2013 End: 10-28-2015 Lipid panel [AGGREGATE] *Lipid Profile [facility] Work Phone: Start: 01-25-2013 End: 01-25-2013 Follow Up Appt 6 months Follow Up Appt 6 months [facility] Work Phone: Start: 01-25-2013 End: 01-25-2013 PFM PFM [facility] Work Phone: Start: 10-18-2012 End: 10-12-2012 24 hour holter monitor 24 hour holter monitor [facility] Work Phone: Start: 08-31-2012 End: 09-01-2012 24 hour holter monitor 24 hour holter monitor [facility] Work Phone: Start: 06-16-2012 End: 06-30-2012 *Hepatic Function Panel *Hepatic Function Panel [facility] Work Phone: Start: 06-16-2012 End: 12-18-2016 Follow Up Appt 6 months Follow Up Appt 6 months [facility] Work Phone: Start: 06-16-2012 End: 06-30-2012 Lipid panel [AGGREGATE] *Lipid Profile [facility] Work Phone: Start: 06-16-2012 End: 06-16-2012 Stress Echocardiogram (treadmill) Stress Echocardiogram (treadmill) [facility] Work Phone: Start: 12-11-2011 End: 12-11-2011 Electrocardiogram, complete EKG (In office) [facility] Work Phone: Start: 12-11-2011 End: 12-11-2011 Follow Up Appt 6 months Follow Up Appt 6 months [facility] Work Phone: Start: 05-05-2010 Provider Instructions for Treatment *Antibiotic Usage Education - Male [facility] Work Phone: Start: 05-17-2007 Provider Instructions for Treatment I/D Cyst/Abscess [facility] Work Phone: Start: 1999 Administration of herpes zoster vaccine Zoster Vaccines (1 of 2) [facility] Start: 1999 Screening for malignant neoplasm of colon [facility] Start: 1967 Hepatitis C screening Hepatitis C Screening [facility] Start: 1961 COVID-19 Vaccine (1) COVID-19 Vaccine (1) [facility] Start: 1961 Depression screening using PHQ-9 (Patient Health Questionnaire 9) score [facility] Start: 1952 History and physical examination, annual for health maintenance Wellness Visit [facility] Start: 1949 Prostate specific antigen measurement PSA Level [facility] Start: 1949 Tetanus vaccination Tetanus: Every 10yrs [facility] Patient Education [facility] Work Phone: [facility] Work Phone: [facility] Work Phone: [facility] Work Phone: [facility] Work Phone: [facility] Work Phone[facility] Work Phone: [facility] Work Phone: [facility] Work Phone[facility] Work Phone: [facility] Work Phone: [facility] Work Phone: [facility] Work Phone: [facility] Work Phone: [facility] Work Phone: [facility] Work Phone: [facility] Work Phone[facility] Work Phone: [facility] Work Phone[facility] Work Phone: [facility] Work Phone: [facility] Work Phone: [facility] Work Phone: [facility] Work Phone: [facility] Work Phone: [facility] Work Phone: [facility] Work Phone: [facility]; [facility] Work Phone: Immunizations Immunization Date Immunization Notes Care Provider Fa [facility] 03-28-2022 COVID-Moderna (Bival ent 25 MCG/0.25 ML IM BST) Connie Fast DO Work Phone: [facility]; [facility] Work Phone: 03-28-2022 influenza, injectabl e, quadrivalent, preservative free Connie Fast DO Work Phone: [facility]; [facility] Work Phone: 01-28-2021 pneumococcal polysaccharide vaccine, 23 valent Connie Fast DO Work Phone: [facility]; [facility] Work Phone: Comment on above: Site: Left Deltoid Lot [id number] 2prefilled syringeleft [facility] 08-26-2020 COVID-Moderna (100 MCG/0.5 ML) Connie Fast DO Work Phone: [facility]; [facility] Work Phone: Payers Date Payer Category Payer Self-pay [id number] 2023 Medicare [id number] 2019 Unknown [employer]MO [employer] [place] [employer] [id number] 2019-Present [phone] [address] [place] [address] [id number] 2019 Unknown [id number] 2017 Unknown [id number] 2016 Medicare [id number] 2015 Unknown [id number] 2014 Medicare MEDICARE MEDICAR E PART A & B [id number] 2014-Present [phone] [facility] [id number] PART A CLAIMS [address] [address] [place] [address] [id number] 2014 Medicare [id number] 2014 Unknown MELI [id number] 1950 Unknown [id number] 1950 Unknown [id number] 1949 Unknown [id number] 1949 Unknown [id number] 1949 Unknown [id number] 1949 Unknown [id number] 1949 Unknown [id number] Unknown Unknown [id number] Unknown [facility] P[employer] [id number] Unknown [id number] Unknown [id number] Unknown [id number] Unknown [id number] Social History Date Type Detail Facility Alcohol Use [facility] Work Phone: Comment on above: Occasional alcohol u se 1 cola QD , heterosexua l [employer] Start: 02-19-2021 End: 02-19-2022 Tobacco smoking status [facility] Tobacco smoking consumption unknown [facility] Start: 1950 Sex Assigned At Not on file [facility] Exposure to SARS-CoV -2 (event) Not sure [facility] Start: 1950 Sex Assigned At Male [facility] Work Phone: Mental Status Date Assessment Result Facility 02-25-2022 Cognitive function Voice/Name [facility] Work Phone: Clinical Notes 02-13-2021 to 04-10-2021 Wilma Cooley, PROJECT LEAD - 04/10/2021 8:30 AM EDYesenia Mayer, PT - 03/31/2021 8:30 AM EDT Note Date & Type Note Facility 04-10-2021 History of Present illness Narrative [facility] OUTPATIENT REHABILITATION DAILY TREATMENT NOTE Today's Date 04/10/2021 Patient Name: Adrian Troy Date of : 1950 Current Visit #: 4 Authorized Visits: [id number] Case Name: Sherif Knee Pain History: Pre-Treatment Pain Scale: 1 Symptoms: gradually improved Functional Diagnosis: 1. Left knee pain, unspecified chronicity Clinical Information: Subjective: Pt states his knee is less painful and ambulation seems easier. Objective Included shuttle squats for LE stretngthening Treatments: Physical Therapy Exercise Log - 04/10/21 0859 OTHER Precautions/Contraindications Javier [id number] Notes Emmanuelle, 12 Vitals L knee pain, leaving May 02 for [place]. Therapeutic Exercise (59622) Intervention Quad set 3 second hold with SLR 3 second hold at top 10x2 Parameters Heel prop 3' Intervention TKE BTB x20 with 5 sec holds (slow controlled movement) Parameters HEP: Quad set with SLR, TKE, heel prop, calf and HS stretches Intervention Shuttle squats: 50# 2 x 10 Parameters Sci[employer] Bike 7 minutes seat 7 QS L2 (ROM warm) Intervention (B) Calf stretches on wedge 30x3; (B) HS stretches in cage 30x3 Parameters lat amb with YTB 30'x 1 lap Intervention SL abd 2x10 bilat Parameters LTR in hooklying with wide stance for hip moblity 2x10 bilat Intervention SLS 10x 8 (L) with intrermit UE A at plinth with Airex PT Treatment Times Therex Total Time 34 Direct Treatment Time 34 Total Treatment Time 34 Goals: Physical Therapy Ortho Goals: IMPAIRMENT: Improve AROM of Left Knee Extension from -3 degrees to 0 degrees in 3 weeks. OTHER: Patient will be able to properly demonstrate independence with HEP in 2 weeks. OTHER: Patient will be able to climb up and down ladders with no pain in 3 weeks OTHER: Patient will be able to improve B hip abduction strength from 4+/5 to 5/5 in 3 weeks. OTHER: Patient will improve Hip IR from 15 to 25 degrees in 3 weeks. Patient Education: Quality of movement, Verbal HEP and Diagnosis and recovery specific education with patient demonstrated understanding and verbalized understanding. Post-Treatment Pain Scale: 0 Assessment: Patient had an expected response to treatment. Pt required occasional UE A with unstable surface balance. Good mechanics with exercises. Skilled Intervention demonstrated by modifications of treatment per exercise log including increased load, decreased cueing and assessment of patient's response and safety interventions per exercise log. Progress towards goals as expected. Plan for Next Visit: Treatment Visit with focus on continue Wilma Cooley PTA STATE LICENSE, [id number] documented in this encounter [facility] 03-31-2021 History of Present illness Narrative Images from the original note were not included. [facility] OUTPATIENT [facility]HABILITATION Evaluation Today's Date 03/31/2021 Patient Name: Adrian Troy Date of : 1950 Case Name: L Knee Pain Functional Diagnosis: 1. Left knee pain, unspecified chronicity Clinical Information: Subjective History of Present Illness Subjective History: L Knee pain for a couple years now. It seemed to be really bad after completing a [employer] project. X-Ray says: floating cartilage and some arthritis--> They say next step would be to get MRI... Needs therapy first. Started on a dose of meloxicam 15mg--> really seemed to help. Now doing okay since that medication. Hip Right Hip Range of Motion: Right rom functional limits: decreased. IR Right hip rom internal rotation (IR) passive: 15. Muscle Strength: Abduction: 4+ Left Hip Range of Motion: Left rom functional limits: decreased. IR Passive: 15 Muscle Strength: Abduction: 4+ Knee Right Knee Range of Motion: Flexion Passive: 135 Extension Passive: 0 Muscle Strength: Flexion: 5 Extension: 5 Left Knee Tenderness: medial joint line and pes anserinus Range of Motion: Flexion Passive: 135 Extension Left knee passive extension: lacking 3 degrees--> painful Muscle Strength Flexion: 5 Extension: 5 Quad set: fair Special Tests Anthony (Medial): Negative Anthony (Lateral): Negative Stress Test (Varus): Negative Stress Test (Valgus): negative Anterior Drawer: Negative Posterior Drawer: Negative Treatments: Physical Therapy Exercise Log - 03/31/21 4619 OTHER Notes Emmanuelle, Prem Vitals L knee pain, leaving May 02 for [place]. Therapeutic Exercise (10683) Intervention Quad set 3 second hold with SLR 3 second hold at top Parameters Heel prop 3' Intervention TKE 2x10 Parameters HEP: Quad set with SLR, TKE, heel prop Intervention NV- SCI FIT, lateral walking, gastroc stretch, airex SLS, hip rotations in supine. PT Treatment Times Therex Total Time 10 Direct Treatment Time 10 Total Treatment Time 45 Treatment Plan: Frequency of Visits: twice per week Duration: 4 weeks Interventions: Therapeutic Exercise, Neuromuscular Re-Education, Manual Therapy, Self Care, Hot/Cold Pack, Electrical Stimulation and Vasopneumatic Rehab Potential: excellent Goals: Physical Therapy Ortho Goals: IMPAIRMENT: Improve AROM of Left Knee Extension from -3 degrees to 0 degrees in 3 weeks. OTHER: Patient will be able to properly demonstrate independence with HEP in 2 weeks. OTHER: Patient will be able to climb up and down ladders with no pain in 3 weeks OTHER: Patient will be able to improve B hip abduction strength from 4+/5 to 5/5 in 3 weeks. OTHER: Patient will improve Hip IR from 15 to 25 degrees in 3 weeks. Patient Education provided: Written HEP provided. Clinical Impression: CPT Code 14442 Low 45537 Moderate 31798 High History 0 1-2 3+ Comorbidities: Personal factors: leaving for [place] in a month. Examination of body systems (elements of body structures & functions, activity limitations, and/or participation restrictions) 1-2 elements 3+ elements 4+ elements See below clinical impression Clinical Presentation Stable Evolving Unstable As evidenced by improved since meloxicam pack. Decision Making Low (FOTO >/= 69) Moderate (FOTO 34 - 68) High (FOTO </= 33) FOTO score= Pt is a 70 y.o male who presents to PT services with c/o L Knee pain . Upon assessment, pt has been found with the following impairments: Strength, ROM. The documented impairments result in the following functional limitations: Bending, lifting, QOL. The pt would benefit from skilled PT services focused on the above listed impairments and limitations in order to safely progress pt to their desired level of function. Pt to be discharged from OP PT services if/when goals are met, if they fail to make progress with conservative management in PT, if their level of progress plateaus, or if they do not maintain compliance with attendance or HEP. At this time, it is my clinical judgment that services are medically necessary. Naveen Mayer, PT STATE LICENSE, [id number] documented in this encounter [facility] 02-18-2021 Note HNO ID: [id number] Author: Saray Angel PA-C Service: ? Author Type: Physician Bell Cleaner Type: Progress Notes Filed: 02/18/2021 5:31 PM Note Text: FOLLOW UP VISIT - SKIN LESION NAME: Adrian Britton [facility] CLINIC NO.: [id number] DATE OF SERVICE: 02/18/2021 : 1950 REFERRING PHYSICIAN: Connie Wilson, Adrian is a patient I am following for a mass on his back. Dr. Freeman performed an excision of this skin lesion on 02/13/21. The patient notes no complaints since the procedure. The patient returns today for wound check and suture removal. The pathology returned as: FINAL DIAGNOSIS A. ?Skin, upper back, excision - Angiolipoma. MP/SA/christian 02/17/2021 VITALS: Blood pressure 110/60, pulse 67, temperature 36.5 ?C (97.7 ?F), weight 78.1 kg (172 lb 3.2 oz), SpO2 99 %. On examination, the skin incision is healing well with no signs of infection or inflammation. +very small seroma noted Assessment IMPRESSION: Status post excision of angiolipoma, healing well PLAN: If the patient notes any problems or signs of wound infections, the patient should contact me immediately. -OK to return to normal activities as tolerated -OK to shower-no soaking incision in pool or hot tub for another 2 weeks -May remove the steri-strips in 5 days if they have not fallen off by that time -If any worsening swelling, tightness at incision site, or signs of infection return to our office immediately. Otherwise, follow up as needed Diagnoses: (D17.9) Angiolipoma (primary encounter diagnosis) Return to Clinic: The patient is instructed to follow-up with me as needed. Saray Angel PA-C [facility] 02-15-2021 Note HNO ID: [id number] Author: Shahab Freeman MD Service: ? Author Type: Physician Type: Progress Notes Filed: 02/15/2021 12:56 PM Note Text: HISTORY AND PHYSICAL Adrian Troy 1950 REFERRING PHYSICIAN: Connie Wilson DO CHIEF COMPLAINT: No chief complaint on file. HPI: The patient is a 70 year old male with a complaint of large subcutaneous lesion to his back. Is been there for many years. Is gradually been increasing in size. Becoming more uncomfortable for him when he is lying down.. The patient is being seen by me today at the request of Dr. Connie Wilson DO for my opinion and advice regarding Lesion of subcutaneous tissue (primary encounter diagnosis). PAST MEDICAL HISTORY Diagnosis Date - CAD (coronary artery disease) - PVC (premature ventricular contraction) PAST SURGICAL HISTORY Procedure Laterality Date - APPENDECTOMY HX 2019 - LAMINECTOMY,LUMBAR 1981 Current Outpatient Medications Medication Sig - propranolol (INDERAL) 60 mg tablet Take 60 mg by mouth three times daily. - tamsulosin (FLOMAX) 0.4 mg Take 0.4 mg by mouth once daily. - amLODIPine (NORVASC) 5 mg tablet Take 1 tablet by mouth once daily. - aspirin, enteric coated (ECOTRIN LOW STRENGTH) 81 mg EC tablet Take 1 tablet by mouth once daily. - metoprolol tartrate, short acting, 25 mg tablet Take 1 tablet by mouth twice daily. - nitroglycerin sublingual 0.4 mg SL tablet Dissolve 1 tablet under the tongue as needed for Chest Pain. If no pain relief call 911. No current facility-administered medications for this visit. ALLERGIES: Patient has no known allergies. PERSONAL HISTORY: Social History Tobacco Use - Smoking status: Never Smoker - Smokeless tobacco: Never Used Vaping Use - Vaping Use: Never used Substance Use Topics - Alcohol use: Yes Comment: on occasion - Drug use: No FAMILY HISTORY: FAMILY HISTORY Problem Relation Age of Onset - Cancer Father - Coronary Artery Disease Mother - Coronary Artery Disease Brother - Hypertension Sister REVIEW OF SYMPTOMS: The review of systems data was entered by the nurse and reviewed by mn Nursing Notes: Adrian Woodruff LPN 02/04/2021 10:14 AM Signed REVIEW OF SYSTEMS: General: The patient denies fatigue, denies weight loss, denies weight gain, denies feeling hot, and denies feelings of cold. Eyes: The patient denies glaucoma, denies eye injury/surgery, wears glasses or contacts. Ear/Nose/Throat: The patient denies allergies, denies hayfever, denies ear infections, and denies bloody noses. Cardiovascular: The patient NOTES chest pain, denies heart disease, denies high blood pressure,denies cardiac stent, denies prior heart attack, NOTES irregular heart beat, denies high cholesterol, denies poor circulation, denies heart failure, other cardiac issues, denies claudication, denies cold feet, denies peripheral arterial stent. Respiratory: The patient denies tuberculosis, denies pneumonia, denies frequent cough, denies pulmonary embolism, denies shortness of breath, and denies coughing up blood. Gastrointestinal: The patient denies difficulty swallowing, denies acid reflux, denies ulcers, denies vomiting, denies jaundice/hepatitis, denies gallbladder problems, denies black or tarry stools, NOTES hemorrhoids, denies bleeding from rectum, denies diverticulitis, denies constipation, denies diarrhea, denies loss of stool control, and NOTES hernias. Kidney/Bladder: The patient denies kidney stones, denies urine infections, and denies bloody urine. Skin: The patient denies a history of skin cancer, denies bleeding/changing moles, and denies a history of skin rash. Neurologic: The patient denies a history of epilepsy/convulsions, denies headaches, NOTES head/spinal injuries, and denies stroke/TIA. Psychiatric: The patient denies psychiatric medications, denies depression, and denies voices, denies substance abuse. Endocrine: The patient denies thyroid disorders, denies diabetes, and denies hormonal problems. Hematologic: The patient denies a history of bruising, denies bleeding, and denies anemia, denies blood clots. Infections: The patient denies a history of measles and mumps, denies rheumatic fever, and denies sexually transmitted diseases. Musculoskeletal: The patient denies back pain/injury, NOTES back problems, denies sciatica, denies knee/foot trouble, denies arthritis, or denies gout. When was patient's last Mammogram screening? N/A Last Colonoscopy: Unknown Adrian Woodruff LPN PHYSICAL EXAMINATION: General: The patient is 70 year old male, well nourished, well hydrated in no acute distress. The patient is oriented to time, place, and person. VITALS: Pulse (!) 58, temperature 36.6 ?C (97.8 ?F), weight 78.1 kg (172 lb 3.2 oz). Other: Large 7 cm subcutaneous lesion to his upper back soft mobile consistent probably with a lipoma. LABORATORY VALUES: As Noted RADIOLOGIC STUDIES: As Noted Assessment (more content not included)... [facility] 02-13-2021 Note HNO ID: [id number] Author: Shahab Freeman MD Service: ? Author Type: Physician Type: Progress Notes Filed: 02/13/2021 3:27 PM Note Text: Preoperative diagnosis: 7 cm subcutaneous lesion to back Postoperative diagnosis: The same Procedure: Excision of a 7 cm subcutaneous lesion of back Surgical Pete Procedure: Mid back more on the right side was sterilely prepped draped in usual fashion. 1% lidocaine plain was injected. 8 cm incision was made. I dissected down removed this fatty lesion in its entirety and sent to pathology for permanent sectioning. I used electrocautery for getting the stasis. I brought the wound together with deep dermal stitches of 3-0 Vicryl. Sterile dressings were applied. Patient tolerated procedure well. [facility] 02-13-2021 Note HNO ID: [id number] Author: Erika Forbes RN Service: ? Author Type: Registered Nurse Type: Progress Notes Filed: 02/13/2021 3:27 PM Note Text: UNIVERSAL PROTOCOL / SAFETY CHECKLIST Procedure to be Performed: Excision of subcutaneous lesion to back. Sign In: A Moment of CARE was completed. Personnel directly involved with the procedure wore the appropriate PPE (Personal Protective Equipment). No special equipment needed. Patient/Surrogate Stated/Verified: PATIENT VERIFIED(optional for EMERGENT procedures): Patient name, Date of , Relevant allergies and The intended procedure Time Out Communication: Intended patient and procedure match the source documents. Consent documented and matches the intended procedure. Correct side/site marked and visible. Medications required for procedure verified. No fire risk assessment and interventions applicable. No implant(s) inserted. Sign Out: SIGN OUT (optional for EMERGENT procedures): All specimen containers correctly labeled. No instruments, equipment or retained foreign bodies applicable. Post-procedure follow-up management communicated and Plan of Care Visit completed when applicable. Erika Forbes RN [facility] Evaluation note Diagnosis Left knee pain, unspecified chronicity- Primary [facility] [place] [facility] Diagnosis Left knee pain, unspecified chronicity [facility] [place] [facility] Diagnosis Left knee pain, unspecified chronicity documented in this encounter [facility] noteNo assessment information availableWMercy Health Work Phone: Evaluation note* Diagnosis Onset Date Resolution Status Chest pain, unspecified acut e Atherosclerotic heart diseas e of [place] coronary artery without angina pectoris chronic Premature ventricular contraction chronic Syncope and collapse chronic Paroxysmal ventricular tachycardia resolved [facility] Work Phone: Instructions* Name Dates Details Patient Instructions Indication:[facility] Start:01-Apr-2021 Instruction Type:Provider Instructions for Treatment How to Access Health Informa [employer] Online using Patient Portal and [employer] Apps Indication:[facility] EX[facility] Start:01-Apr-2021 Instruction Type:Patient Education Patient Instructions Indication:Left knee pain Start:11-Mar-2021 Instruction Type:Provider Instructions for Treatment How to Access Health Informa tion Online using Patient Portal and [employer] Apps Indication:Left knee pain Start:11-Mar-2021 Instruction Type:Patient Education How to access health informa tion online Indication:COPD (chronic obstructive pulmonary disease) Start:09-Apr-2020 Instruction Type:Patient Education How to access health informa tion online - Detail Indication:COPD (chronic obstructive pulmonary disease) Start:09-Apr-2020 Instruction Type:Patient Education Patient Instructions Indication:COPD (chronic obstructive pulmonary disease) Start:09-Apr-2020 Instruction Type:Provider Instructions for Treatment How to access health informa tion online Indication:[facility] Start:06-Mar-2020 Instruction Type:Patient Education How to access health informa tion online - Detail Indication:[facility] Start:06-Mar-2020 Instruction Type:Patient Education Patient Instructions Indication:[facility] Start:06-Mar-2020 Instruction Type:Provider Instructions for Treatment How to access health informa tion online Indication:Nonsmoker Start:01-Dec-2019 Instruction Type:Patient Education How to access health informa tion online - Detail Indication:Nonsmoker Start:01-Dec-2019 Instruction Type:Patient Education Patient Instructions Indication:Nonsmoker Start:01-Dec-2019 Instruction Type:Provider Instructions for Treatment How to access health informa tion online Indication:Paronychia, finger Start:21-Mar-2019 Instruction Type:Patient Education How to access health informa tion online - Detail Indication:Paronychia, finger Start:21-Mar-2019 Instruction Type:Patient Education Patient Instructions Indication:Paronychia, finger Start:21-Mar-2019 Instruction Type:Provider Instructions for Treatment How to access health informa tion online Indication:Right shoulder pain Start:27-Dec-2018 Instruction Type:Patient Education How to access health informa tion online - Detail Indication:Right shoulder pain Start:27-Dec-2018 Instruction Type:Patient Education Patient Instructions Indication:Right shoulder pain Start:27-Dec-2018 Instruction Type:Provider Instructions for Treatment How to access health informa tion online Indication:[facility] Start:14-Dec-2018 Instruction Type:Patient Education How to access health informa tion online - Detail Indication:[facility] Start:14-Dec-2018 Instruction Type:Patient Education Patient Instructions Indication:[facility] Start:14-Dec-2018 Instruction Type:Provider Instructions for Treatment How to access health informa tion online Indication:Ventricular tachycardia Start:08-Apr-2018 Instruction Type:Patient Education How to access health informa tion online - Detail Indication:Ventricular tachycardia Start:08-Apr-2018 Instruction Type:Patient Education Patient Instructions Indication:Ventricular tachycardia Start:08-Apr-2018 Instruction Type:Provider Instructions for Treatment How to access health informa tion online Indication:BMI 25.0-25.9,adult Start:04-Apr-2018 Instruction Type:Patient Education How to access health informa tion online - Detail Indication:BMI 25.0-25.9,adult Start:04-Apr-2018 Instruction Type:Patient Education Patient Instructions Indication:BMI 25.0-25.9,adult Start:04-Apr-2018 Instruction Type:Provider Instructions for Treatment How to access health informa tion online Indication:Rib pain on right side Start:18-Jun-2017 Instruction Type:Patient Education How to access health informa tion online - Detail Indication:Rib pain on right side Start:18-Jun-2017 Instruction Type:Patient Education Patient Instructions Indication:Rib pain on right side Start:18-Jun-2017 Instruction Type:Provider Instructions for Treatment How to access health informa tion online Indication:Body mass index (BMI) 24.0-24.9, adult Start:24-Nov-2016 Instruction Type:Patient Education How to access health informa tion online - Detail Indication:Body mass index (BMI) 24.0-24.9, adult Start:24-Nov-2016 Instruction Type:Patient Education Patient Instructions Indication:Body mass index (BMI) 24.0-24.9, adult Start:24-Nov-2016 Instruction Type:Provider Instructions for Treatment cardiovascular counseling Indication:Cardiac dysrhythmia Start:03-Apr-2016 Instruction Type:Provider Instructions for Treatment How to access health informa tion online Indication:Need for prophylactic vaccination and inoculation against influenza Start:03-Apr-2016 Instruction Type:Patient Education How to access health informa tion online - Detail Indication:Need for prophylactic vaccination and inoculation against influenza Start:03-Apr-2016 Instruction Type:Patient Education Patient Instructions Indication:Need for prophylactic vaccination and inoculation against influenza Start:03-Apr-2016 Instruction Type:Provider Instructions for Treatment How to access health informa tion online Indication:Asthma Start:21-May-2014 Instruction Type:Patient Education How to access health informa tion online - Detail Indication:Asthma Start:21-May-2014 Instruction Type:Patient Education Patient Instructions Indication:Asthma Start:21-May-2014 Instruction Type:Provider Instructions for Treatment Patient Instructions Indication:Vaccine for tlwzefulku-[id number]-boklnjwze with poliomyelitis Start:27-Nov-2013 Instruction Type:Provider Instructions for Treatment Patient Instructions Indication:Screening for prostate cancer Start:28-Aug-2013 Instruction Type:Provider Instructions for Treatment [facility]; [facility] Work Phone: Instructions* Name Dates Details How to access health informa tion online Indication:[facility] Start:06-Mar-2020 Instruction Type:Patient Education How to access health informa tion online - Detail Indication:[facility] Start:06-Mar-2020 Instruction Type:Patient Education Patient Instructions Indication:[facility] Start:06-Mar-2020 Instruction Type:Provider Instructions for Treatment How to access health informa tion online Indication:Nonsmoker Start:01-Dec-2019 Instruction Type:Patient Education How to access health informa tion online - Detail Indication:Nonsmoker Start:01-Dec-2019 Instruction Type:Patient Education Patient Instructions Indication:Nonsmoker Start:01-Dec-2019 Instruction Type:Provider Instructions for Treatment How to access health informa tion online Indication:Paronychia, finger Start:21-Mar-2019 Instruction Type:Patient Education How to access health informa tion online - Detail Indication:Paronychia, finger Start:21-Mar-2019 Instruction Type:Patient Education Patient Instructions Indication:Paronychia, finger Start:21-Mar-2019 Instruction Type:Provider Instructions for Treatment How to access health informa tion online Indication:Right shoulder pain Start:27-Dec-2018 Instruction Type:Patient Education How to access health informa tion online - Detail Indication:Right shoulder pain Start:27-Dec-2018 Instruction Type:Patient Education Patient Instructions Indication:Right shoulder pain Start:27-Dec-2018 Instruction Type:Provider Instructions for Treatment How to access health informa tion online Indication:[facility] Start:14-Dec-2018 Instruction Type:Patient Education How to access health informa tion online - Detail Indication:[facility] EXAM Start:14-Dec-2018 Instruction Type:Patient Education Patient Instructions Indication:[facility] Start:14-Dec-2018 Instruction Type:Provider Instructions for Treatment How to access health informa tion online Indication:Ventricular tachycardia Start:08-Apr-2018 Instruction Type:Patient Education How to access health informa tion online - Detail Indication:Ventricular tachycardia Start:08-Apr-2018 Instruction Type:Patient Education Patient Instructions Indication:Ventricular tachycardia Start:08-Apr-2018 Instruction Type:Provider Instructions for Treatment How to access health informa tion online Indication:BMI 25.0-25.9,adult Start:04-Apr-2018 Instruction Type:Patient Education How to access health informa tion online - Detail Indication:BMI 25.0-25.9,adult Start:04-Apr-2018 Instruction Type:Patient Education Patient Instructions Indication:BMI 25.0-25.9,adult Start:04-Apr-2018 Instruction Type:Provider Instructions for Treatment How to access health informa tion online Indication:Rib pain on right side Start:18-Jun-2017 Instruction Type:Patient Education How to access health informa tion online - Detail Indication:Rib pain on right side Start:18-Jun-2017 Instruction Type:Patient Education Patient Instructions Indication:Rib pain on right side Start:18-Jun-2017 Instruction Type:Provider Instructions for Treatment How to access health informa tion online Indication:Body mass index (BMI) 24.0-24.9, adult Start:24-Nov-2016 Instruction Type:Patient Education How to access health informa tion online - Detail Indication:Body mass index (BMI) 24.0-24.9, adult Start:24-Nov-2016 Instruction Type:Patient Education Patient Instructions Indication:Body mass index (BMI) 24.0-24.9, adult Start:24-Nov-2016 Instruction Type:Provider Instructions for Treatment cardiovascular counseling Indication:Cardiac dysrhythmia Start:03-Apr-2016 Instruction Type:Provider Instructions for Treatment How to access health informa tion online Indication:Need for prophylactic vaccination and inoculation against influenza Start:03-Apr-2016 Instruction Type:Patient Education How to access health informa tion online - Detail Indication:Need for prophylactic vaccination and inoculation against influenza Start:03-Apr-2016 Instruction Type:Patient Education Patient Instructions Indication:Need for prophylactic vaccination and inoculation against influenza Start:03-Apr-2016 Instruction Type:Provider Instructions for Treatment How to access health informa tion online Indication:Asthma Start:21-May-2014 Instruction Type:Patient Education How to access health informa tion online - Detail Indication:Asthma Start:21-May-2014 Instruction Type:Patient Education Patient Instructions Indication:Asthma Start:21-May-2014 Instruction Type:Provider Instructions for Treatment Patient Instructions Indication:Vaccine for yzghuotprk-xryjagc-ytwvnewzp with poliomyelitis Start:27-Nov-2013 Instruction Type:Provider Instructions for Treatment Patient Instructions Indication:Screening for prostate cancer Start:28-Aug-2013 Instruction Type:Provider Instructions for Treatment [facility] Work Phone: Instructions* Name Dates Details Patient Instructions Indication:[facility] Start:01-Apr-2021 Instruction Type:Provider Instructions for Treatment How to Access Health Informa tion Online using Patient Portal and [employer] Apps Indication:[facility] Start:01-Apr-2021 Instruction Type:Patient Education Patient Instructions Indication:Left knee pain Start:11-Mar-2021 Instruction Type:Provider Instructions for Treatment How to Access Health Informa tion Online using Patient Portal and [employer] Apps Indication:Left knee pain Start:11-Mar-2021 Instruction Type:Patient Education How to access health informa tion online Indication:COPD (chronic obstructive pulmonary disease) Start:09-Apr-2020 Instruction Type:Patient Education How to access health informa tion online - Detail Indication:COPD (chronic obstructive pulmonary disease) Start:09-Apr-2020 Instruction Type:Patient Education Patient Instructions Indication:COPD (chronic obstructive pulmonary disease) Start:09-Apr-2020 Instruction Type:Provider Instructions for Treatment How to access health informa tion online Indication:[facility] Start:06-Mar-2020 Instruction Type:Patient Education How to access health informa tion online - Detail Indication:[facility] Start:06-Mar-2020 Instruction Type:Patient Education Patient Instructions Indication:[facility] Start:06-Mar-2020 Instruction Type:Provider Instructions for Treatment How to access health informa tion online Indication:Nonsmoker Start:01-Dec-2019 Instruction Type:Patient Education How to access health informa tion online - Detail Indication:Nonsmoker Start:01-Dec-2019 Instruction Type:Patient Education Patient Instructions Indication:Nonsmoker Start:01-Dec-2019 Instruction Type:Provider Instructions for Treatment How to access health informa tion online Indication:Paronychia, finger Start:21-Mar-2019 Instruction Type:Patient Education How to access health informa tion online - Detail Indication:Paronychia, finger Start:21-Mar-2019 Instruction Type:Patient Education Patient Instructions Indication:Paronychia, finger Start:21-Mar-2019 Instruction Type:Provider Instructions for Treatment How to access health informa tion online Indication:Right shoulder pain Start:27-Dec-2018 Instruction Type:Patient Education How to access health informa tion online - Detail Indication:Right shoulder pain Start:27-Dec-2018 Instruction Type:Patient Education Patient Instructions Indication:Right shoulder pain Start:27-Dec-2018 Instruction Type:Provider Instructions for Treatment How to access health informa tion online Indication:[facility] Start:14-Dec-2018 Instruction Type:Patient Education How to access health informa tion online - Detail Indication:[facility] Start:14-Dec-2018 Instruction Type:Patient Education Patient Instructions Indication:[facility] Start:14-Dec-2018 Instruction Type:Provider Instructions for Treatment How to access health informa tion online Indication:Ventricular tachycardia Start:08-Apr-2018 Instruction Type:Patient Education How to access health informa tion online - Detail Indication:Ventricular tachycardia Start:08-Apr-2018 Instruction Type:Patient Education Patient Instructions Indication:Ventricular tachycardia Start:08-Apr-2018 Instruction Type:Provider Instructions for Treatment How to access health informa tion online Indication:BMI 25.0-25.9,adult Start:04-Apr-2018 Instruction Type:Patient Education How to access health informa tion online - Detail Indication:BMI 25.0-25.9,adult Start:04-Apr-2018 Instruction Type:Patient Education Patient Instructions Indication:BMI 25.0-25.9,adult Start:04-Apr-2018 Instruction Type:Provider Instructions for Treatment How to access health informa tion online Indication:Rib pain on right side Start:18-Jun-2017 Instruction Type:Patient Education How to access health informa tion online - Detail Indication:Rib pain on right side Start:18-Jun-2017 Instruction Type:Patient Education Patient Instructions Indication:Rib pain on right side Start:18-Jun-2017 Instruction Type:Provider Instructions for Treatment How to access health informa tion online Indication:Body mass index (BMI) 24.0-24.9, adult Start:24-Nov-2016 Instruction Type:Patient Education How to access health informa tion online - Detail Indication:Body mass index (BMI) 24.0-24.9, adult Start:24-Nov-2016 Instruction Type:Patient Education Patient Instructions Indication:Body mass index (BMI) 24.0-24.9, adult Start:24-Nov-2016 Instruction Type:Provider Instructions for Treatment cardiovascular counseling Indication:Cardiac dysrhythmia Start:03-Apr-2016 Instruction Type:Provider Instructions for Treatment How to access health informa tion online Indication:Need for prophylactic vaccination and inoculation against influenza Start:03-Apr-2016 Instruction Type:Patient Education How to access health informa tion online - Detail Indication:Need for prophylactic vaccination and inoculation against influenza Start:03-Apr-2016 Instruction Type:Patient Education Patient Instructions Indication:Need for prophylactic vaccination and inoculation against influenza Start:03-Apr-2016 Instruction Type:Provider Instructions for Treatment How to access health informa tion online Indication:Asthma Start:21-May-2014 Instruction Type:Patient Education How to access health informa tion online - Detail Indication:Asthma Start:21-May-2014 Instruction Type:Patient Education Patient Instructions Indication:Asthma Start:21-May-2014 Instruction Type:Provider Instructions for Treatment Patient Instructions Indication:Vaccine for [id number] with poliomyelitis Start:27-Nov-2013 Instruction Type:Provider Instructions for Treatment Patient Instructions Indication:Screening for prostate cancer Start:28-Aug-2013 Instruction Type:Provider Instructions for Treatment [facility]; [facility] Work Phone: Instructions* Name Dates Details Patient Instructions Indication:[facility] Start:01-Apr-2021 Instruction Type:Provider Instructions for Treatment How to Access Health Informa tion Online using Patient Portal and [employer] Apps Indication:[facility] Start:01-Apr-2021 Instruction Type:Patient Education Patient Instructions Indication:Left knee pain Start:11-Mar-2021 Instruction Type:Provider Instructions for Treatment How to Access Health Informa tion Online using Patient Portal and [employer] Apps Indication:Left knee pain Start:11-Mar-2021 Instruction Type:Patient Education How to access health informa tion online Indication:COPD (chronic obstructive pulmonary disease) Start:09-Apr-2020 Instruction Type:Patient Education How to access health informa tion online - Detail Indication:COPD (chronic obstructive pulmonary disease) Start:09-Apr-2020 Instruction Type:Patient Education Patient Instructions Indication:COPD (chronic obstructive pulmonary disease) Start:09-Apr-2020 Instruction Type:Provider Instructions for Treatment How to access health informa tion online Indication:[facility] Start:06-Mar-2020 Instruction Type:Patient Education How to access health informa tion online - Detail Indication:[facility] Start:06-Mar-2020 Instruction Type:Patient Education Patient Instructions Indication:[facility] Start:06-Mar-2020 Instruction Type:Provider Instructions for Treatment How to access health informa tion online Indication:Nonsmoker Start:01-Dec-2019 Instruction Type:Patient Education How to access health informa tion online - Detail Indication:Nonsmoker Start:01-Dec-2019 Instruction Type:Patient Education Patient Instructions Indication:Nonsmoker Start:01-Dec-2019 Instruction Type:Provider Instructions for Treatment How to access health informa tion online Indication:Paronychia, finger Start:21-Mar-2019 Instruction Type:Patient Education How to access health informa tion online - Detail Indication:Paronychia, finger Start:21-Mar-2019 Instruction Type:Patient Education Patient Instructions Indication:Paronychia, finger Start:21-Mar-2019 Instruction Type:Provider Instructions for Treatment How to access health informa tion online Indication:Right shoulder pain Start:27-Dec-2018 Instruction Type:Patient Education How to access health informa tion online - Detail Indication:Right shoulder pain Start:27-Dec-2018 Instruction Type:Patient Education Patient Instructions Indication:Right shoulder pain Start:27-Dec-2018 Instruction Type:Provider Instructions for Treatment How to access health informa tion online Indication:[facility] Start:14-Dec-2018 Instruction Type:Patient Education How to access health informa tion online - Detail Indication:[facility] Start:14-Dec-2018 Instruction Type:Patient Education Patient Instructions Indication:[facility] Start:14-Dec-2018 Instruction Type:Provider Instructions for Treatment How to access health informa tion online Indication:Ventricular tachycardia Start:08-Apr-2018 Instruction Type:Patient Education How to access health informa tion online - Detail Indication:Ventricular tachycardia Start:08-Apr-2018 Instruction Type:Patient Education Patient Instructions Indication:Ventricular tachycardia Start:08-Apr-2018 Instruction Type:Provider Instructions for Treatment How to access health informa tion online Indication:BMI 25.0-25.9,adult Start:04-Apr-2018 Instruction Type:Patient Education How to access health informa tion online - Detail Indication:BMI 25.0-25.9,adult Start:04-Apr-2018 Instruction Type:Patient Education Patient Instructions Indication:BMI 25.0-25.9,adult Start:04-Apr-2018 Instruction Type:Provider Instructions for Treatment How to access health informa tion online Indication:Rib pain on right side Start:18-Jun-2017 Instruction Type:Patient Education How to access health informa tion online - Detail Indication:Rib pain on right side Start:18-Jun-2017 Instruction Type:Patient Education Patient Instructions Indication:Rib pain on right side Start:18-Jun-2017 Instruction Type:Provider Instructions for Treatment How to access health informa tion online Indication:Body mass index (BMI) 24.0-24.9, adult Start:24-Nov-2016 Instruction Type:Patient Education How to access health informa tion online - Detail Indication:Body mass index (BMI) 24.0-24.9, adult Start:24-Nov-2016 Instruction Type:Patient Education Patient Instructions Indication:Body mass index (BMI) 24.0-24.9, adult Start:24-Nov-2016 Instruction Type:Provider Instructions for Treatment cardiovascular counseling Indication:Cardiac dysrhythmia Start:03-Apr-2016 Instruction Type:Provider Instructions for Treatment How to access health informa tion online Indication:Need for prophylactic vaccination and inoculation against influenza Start:03-Apr-2016 Instruction Type:Patient Education How to access health informa tion online - Detail Indication:Need for prophylactic vaccination and inoculation against influenza Start:03-Apr-2016 Instruction Type:Patient Education Patient Instructions Indication:Need for prophylactic vaccination and inoculation against influenza Start:03-Apr-2016 Instruction Type:Provider Instructions for Treatment How to access health informa tion online Indication:Asthma Start:21-May-2014 Instruction Type:Patient Education How to access health informa tion online - Detail Indication:Asthma Start:21-May-2014 Instruction Type:Patient Education Patient Instructions Indication:Asthma Start:21-May-2014 Instruction Type:Provider Instructions for Treatment Patient Instructions Indication:Vaccine for [id number] with poliomyelitis Start:27-Nov-2013 Instruction Type:Provider Instructions for Treatment Patient Instructions Indication:Screening for prostate cancer Start:28-Aug-2013 Instruction Type:Provider Instructions for Treatment [facility]; [facility] Work Phone: Instructions* Name Dates Details Patient Instructions Indication:[facility] Start:01-Apr-2021 Instruction Type:Provider Instructions for Treatment How to Access Health Informa tion Online using Patient Portal and [employer] Apps Indication:[facility] Start:01-Apr-2021 Instruction Type:Patient Education Patient Instructions Indication:Left knee pain Start:11-Mar-2021 Instruction Type:Provider Instructions for Treatment How to Access Health Informa tion Online using Patient Portal and [employer] Apps Indication:Left knee pain Start:11-Mar-2021 Instruction Type:Patient Education How to access health informa tion online Indication:COPD (chronic obstructive pulmonary disease) Start:09-Apr-2020 Instruction Type:Patient Education How to access health informa tion online - Detail Indication:COPD (chronic obstructive pulmonary disease) Start:09-Apr-2020 Instruction Type:Patient Education Patient Instructions Indication:COPD (chronic obstructive pulmonary disease) Start:09-Apr-2020 Instruction Type:Provider Instructions for Treatment How to access health informa tion online Indication:[facility] Start:06-Mar-2020 Instruction Type:Patient Education How to access health informa tion online - Detail Indication:[facility] Start:06-Mar-2020 Instruction Type:Patient Education Patient Instructions Indication:[facility] Start:06-Mar-2020 Instruction Type:Provider Instructions for Treatment How to access health informa tion online Indication:Nonsmoker Start:01-Dec-2019 Instruction Type:Patient Education How to access health informa tion online - Detail Indication:Nonsmoker Start:01-Dec-2019 Instruction Type:Patient Education Patient Instructions Indication:Nonsmoker Start:01-Dec-2019 Instruction Type:Provider Instructions for Treatment How to access health informa tion online Indication:Paronychia, finger Start:21-Mar-2019 Instruction Type:Patient Education How to access health informa tion online - Detail Indication:Paronychia, finger Start:21-Mar-2019 Instruction Type:Patient Education Patient Instructions Indication:Paronychia, finger Start:21-Mar-2019 Instruction Type:Provider Instructions for Treatment How to access health informa tion online Indication:Right shoulder pain Start:27-Dec-2018 Instruction Type:Patient Education How to access health informa tion online - Detail Indication:Right shoulder pain Start:27-Dec-2018 Instruction Type:Patient Education Patient Instructions Indication:Right shoulder pain Start:27-Dec-2018 Instruction Type:Provider Instructions for Treatment How to access health informa tion online Indication:[facility] Start:14-Dec-2018 Instruction Type:Patient Education How to access health informa tion online - Detail Indication:[facility] Start:14-Dec-2018 Instruction Type:Patient Education Patient Instructions Indication:[facility] Start:14-Dec-2018 Instruction Type:Provider Instructions for Treatment How to access health informa tion online Indication:Ventricular tachycardia Start:08-Apr-2018 Instruction Type:Patient Education How to access health informa tion online - Detail Indication:Ventricular tachycardia Start:08-Apr-2018 Instruction Type:Patient Education Patient Instructions Indication:Ventricular tachycardia Start:08-Apr-2018 Instruction Type:Provider Instructions for Treatment How to access health informa tion online Indication:BMI 25.0-25.9,adult Start:04-Apr-2018 Instruction Type:Patient Education How to access health informa tion online - Detail Indication:BMI 25.0-25.9,adult Start:04-Apr-2018 Instruction Type:Patient Education Patient Instructions Indication:BMI 25.0-25.9,adult Start:04-Apr-2018 Instruction Type:Provider Instructions for Treatment How to access health informa tion online Indication:Rib pain on right side Start:18-Jun-2017 Instruction Type:Patient Education How to access health informa tion online - Detail Indication:Rib pain on right side Start:18-Jun-2017 Instruction Type:Patient Education Patient Instructions Indication:Rib pain on right side Start:18-Jun-2017 Instruction Type:Provider Instructions for Treatment How to access health informa tion online Indication:Body mass index (BMI) 24.0-24.9, adult Start:24-Nov-2016 Instruction Type:Patient Education How to access health informa tion online - Detail Indication:Body mass index (BMI) 24.0-24.9, adult Start:24-Nov-2016 Instruction Type:Patient Education Patient Instructions Indication:Body mass index (BMI) 24.0-24.9, adult Start:24-Nov-2016 Instruction Type:Provider Instructions for Treatment cardiovascular counseling Indication:Cardiac dysrhythmia Start:03-Apr-2016 Instruction Type:Provider Instructions for Treatment How to access health informa tion online Indication:Need for prophylactic vaccination and inoculation against influenza Start:03-Apr-2016 Instruction Type:Patient Education How to access health informa tion online - Detail Indication:Need for prophylactic vaccination and inoculation against influenza Start:03-Apr-2016 Instruction Type:Patient Education Patient Instructions Indication:Need for prophylactic vaccination and inoculation against influenza Start:03-Apr-2016 Instruction Type:Provider Instructions for Treatment How to access health informa tion online Indication:Asthma Start:21-May-2014 Instruction Type:Patient Education How to access health informa tion online - Detail Indication:Asthma Start:21-May-2014 Instruction Type:Patient Education Patient Instructions Indication:Asthma Start:21-May-2014 Instruction Type:Provider Instructions for Treatment Patient Instructions Indication:Vaccine for [id number] with poliomyelitis Start:27-Nov-2013 Instruction Type:Provider Instructions for Treatment Patient Instructions Start:28-Aug-2013 Instruction Type:Provider Instructions for Treatment [facility]; [facility] Work Phone: Instructions* Name Dates Details Patient Instructions Indication:BMI 24.0-24.9, adult Start:06-Apr-2022 Instruction Type:Provider Instructions for Treatment How to Access Health Informa tion Online using Patient Portal and [employer] Apps Indication:BMI 24.0-24.9, adult Start:06-Apr-2022 Instruction Type:Patient Education Patient Instructions Indication:[facility] Start:01-Apr-2021 Instruction Type:Provider Instructions for Treatment How to Access Health Informa tion Online using Patient Portal and [employer] Apps Indication:[facility] Start:01-Apr-2021 Instruction Type:Patient Education Patient Instructions Indication:Left knee pain Start:11-Mar-2021 Instruction Type:Provider Instructions for Treatment How to Access Health Informa tion Online using Patient Portal and [employer] Apps Indication:Left knee pain Start:11-Mar-2021 Instruction Type:Patient Education How to access health informa tion online Indication:COPD (chronic obstructive pulmonary disease) Start:09-Apr-2020 Instruction Type:Patient Education How to access health informa tion online - Detail Indication:COPD (chronic obstructive pulmonary disease) Start:09-Apr-2020 Instruction Type:Patient Education Patient Instructions Indication:COPD (chronic obstructive pulmonary disease) Start:09-Apr-2020 Instruction Type:Provider Instructions for Treatment How to access health informa tion online Indication:[facility] Start:06-Mar-2020 Instruction Type:Patient Education How to access health informa tion online - Detail Indication:[facility] Start:06-Mar-2020 Instruction Type:Patient Education Patient Instructions Indication:[facility] Start:06-Mar-2020 Instruction Type:Provider Instructions for Treatment How to access health informa tion online Indication:Nonsmoker Start:01-Dec-2019 Instruction Type:Patient Education How to access health informa tion online - Detail Indication:Nonsmoker Start:01-Dec-2019 Instruction Type:Patient Education Patient Instructions Indication:Nonsmoker Start:01-Dec-2019 Instruction Type:Provider Instructions for Treatment How to access health informa tion online Indication:Paronychia, finger Start:21-Mar-2019 Instruction Type:Patient Education How to access health informa tion online - Detail Indication:Paronychia, finger Start:21-Mar-2019 Instruction Type:Patient Education Patient Instructions Indication:Paronychia, finger Start:21-Mar-2019 Instruction Type:Provider Instructions for Treatment How to access health informa tion online Indication:Right shoulder pain Start:27-Dec-2018 Instruction Type:Patient Education How to access health informa tion online - Detail Indication:Right shoulder pain Start:27-Dec-2018 Instruction Type:Patient Education Patient Instructions Indication:Right shoulder pain Start:27-Dec-2018 Instruction Type:Provider Instructions for Treatment How to access health informa tion online Indication:[facility] Start:14-Dec-2018 Instruction Type:Patient Education How to access health informa tion online - Detail Indication:[facility] Start:14-Dec-2018 Instruction Type:Patient Education Patient Instructions Indication:[facility] Start:14-Dec-2018 Instruction Type:Provider Instructions for Treatment How to access health informa tion online Indication:Ventricular tachycardia Start:08-Apr-2018 Instruction Type:Patient Education How to access health informa tion online - Detail Indication:Ventricular tachycardia Start:08-Apr-2018 Instruction Type:Patient Education Patient Instructions Indication:Ventricular tachycardia Start:08-Apr-2018 Instruction Type:Provider Instructions for Treatment How to access health informa tion online Indication:BMI 25.0-25.9,adult Start:04-Apr-2018 Instruction Type:Patient Education How to access health informa tion online - Detail Indication:BMI 25.0-25.9,adult Start:04-Apr-2018 Instruction Type:Patient Education Patient Instructions Indication:BMI 25.0-25.9,adult Start:04-Apr-2018 Instruction Type:Provider Instructions for Treatment How to access health informa tion online Indication:Rib pain on right side Start:18-Jun-2017 Instruction Type:Patient Education How to access health informa tion online - Detail Indication:Rib pain on right side Start:18-Jun-2017 Instruction Type:Patient Education Patient Instructions Indication:Rib pain on right side Start:18-Jun-2017 Instruction Type:Provider Instructions for Treatment How to access health informa tion online Indication:Body mass index (BMI) 24.0-24.9, adult Start:24-Nov-2016 Instruction Type:Patient Education How to access health informa tion online - Detail Indication:Body mass index (BMI) 24.0-24.9, adult Start:24-Nov-2016 Instruction Type:Patient Education Patient Instructions Indication:Body mass index (BMI) 24.0-24.9, adult Start:24-Nov-2016 Instruction Type:Provider Instructions for Treatment cardiovascular counseling Indication:Cardiac dysrhythmia Start:03-Apr-2016 Instruction Type:Provider Instructions for Treatment How to access health informa tion online Indication:Need for prophylactic vaccination and inoculation against influenza Start:03-Apr-2016 Instruction Type:Patient Education How to access health informa tion online - Detail Indication:Need for prophylactic vaccination and inoculation against influenza Start:03-Apr-2016 Instruction Type:Patient Education Patient Instructions Indication:Need for prophylactic vaccination and inoculation against influenza Start:03-Apr-2016 Instruction Type:Provider Instructions for Treatment How to access health informa tion online Indication:Asthma Start:21-May-2014 Instruction Type:Patient Education How to access health informa tion online - Detail Indication:Asthma Start:21-May-2014 Instruction Type:Patient Education Patient Instructions Indication:Asthma Start:21-May-2014 Instruction Type:Provider Instructions for Treatment Patient Instructions Indication:Vaccine for clexywxhgk-[id number]-[id number] with poliomyelitis Start:27-Nov-2013 Instruction Type:Provider Instructions for Treatment Patient Instructions Indication:Screening for prostate cancer Start:28-Aug-2013 Instruction Type:Provider Instructions for Treatment [facility]; [facility] Work Phone: Instructions* Name Dates Details Patient Instructions Indication:BMI 24.0-24.9, adult Start:06-Apr-2022 Instruction Type:Provider Instructions for Treatment How to Access Health Informa tion Online using Patient Portal and [employer] Indication:BMI 24.0-24.9, adult Start:06-Apr-2022 Instruction Type:Patient Education Patient Instructions Indication:[facility] Start:01-Apr-2021 Instruction Type:Provider Instructions for Treatment How to Access Health Informa tion Online using Patient Portal and [employer] Apps Indication:[facility] Start:01-Apr-2021 Instruction Type:Patient Education Patient Instructions Indication:Left knee pain Start:11-Mar-2021 Instruction Type:Provider Instructions for Treatment How to Access Health Informa tion Online using Patient Portal and [employer] Apps Indication:Left knee pain Start:11-Mar-2021 Instruction Type:Patient Education How to access health informa tion online Indication:COPD (chronic obstructive pulmonary disease) Start:09-Apr-2020 Instruction Type:Patient Education How to access health informa tion online - Detail Indication:COPD (chronic obstructive pulmonary disease) Start:09-Apr-2020 Instruction Type:Patient Education Patient Instructions Indication:COPD (chronic obstructive pulmonary disease) Start:09-Apr-2020 Instruction Type:Provider Instructions for Treatment How to access health informa tion online Indication:[facility] Start:06-Mar-2020 Instruction Type:Patient Education How to access health informa tion online - Detail Indication:[facility] Start:06-Mar-2020 Instruction Type:Patient Education Patient Instructions Indication:[facility] Start:06-Mar-2020 Instruction Type:Provider Instructions for Treatment How to access health informa tion online Indication:Nonsmoker Start:01-Dec-2019 Instruction Type:Patient Education How to access health informa tion online - Detail Indication:Nonsmoker Start:01-Dec-2019 Instruction Type:Patient Education Patient Instructions Indication:Nonsmoker Start:01-Dec-2019 Instruction Type:Provider Instructions for Treatment How to access health informa tion online Indication:Paronychia, finger Start:21-Mar-2019 Instruction Type:Patient Education How to access health informa tion online - Detail Indication:Paronychia, finger Start:21-Mar-2019 Instruction Type:Patient Education Patient Instructions Indication:Paronychia, finger Start:21-Mar-2019 Instruction Type:Provider Instructions for Treatment How to access health informa tion online Indication:Right shoulder pain Start:27-Dec-2018 Instruction Type:Patient Education How to access health informa tion online - Detail Indication:Right shoulder pain Start:27-Dec-2018 Instruction Type:Patient Education Patient Instructions Indication:Right shoulder pain Start:27-Dec-2018 Instruction Type:Provider Instructions for Treatment How to access health informa tion online Indication:[facility] Start:14-Dec-2018 Instruction Type:Patient Education How to access health informa tion online - Detail Indication:[facility] Start:14-Dec-2018 Instruction Type:Patient Education Patient Instructions Indication:[facility] Start:14-Dec-2018 Instruction Type:Provider Instructions for Treatment How to access health informa tion online Indication:Ventricular tachycardia Start:08-Apr-2018 Instruction Type:Patient Education How to access health informa tion online - Detail Indication:Ventricular tachycardia Start:08-Apr-2018 Instruction Type:Patient Education Patient Instructions Indication:Ventricular tachycardia Start:08-Apr-2018 Instruction Type:Provider Instructions for Treatment How to access health informa tion online Indication:BMI 25.0-25.9,adult Start:04-Apr-2018 Instruction Type:Patient Education How to access health informa tion online - Detail Indication:BMI 25.0-25.9,adult Start:04-Apr-2018 Instruction Type:Patient Education Patient Instructions Indication:BMI 25.0-25.9,adult Start:04-Apr-2018 Instruction Type:Provider Instructions for Treatment How to access health informa tion online Indication:Rib pain on right side Start:18-Jun-2017 Instruction Type:Patient Education How to access health informa tion online - Detail Indication:Rib pain on right side Start:18-Jun-2017 Instruction Type:Patient Education Patient Instructions Indication:Rib pain on right side Start:18-Jun-2017 Instruction Type:Provider Instructions for Treatment How to access health informa tion online Indication:Body mass index (BMI) 24.0-24.9, adult Start:24-Nov-2016 Instruction Type:Patient Education How to access health informa tion online - Detail Indication:Body mass index (BMI) 24.0-24.9, adult Start:24-Nov-2016 Instruction Type:Patient Education Patient Instructions Indication:Body mass index (BMI) 24.0-24.9, adult Start:24-Nov-2016 Instruction Type:Provider Instructions for Treatment cardiovascular counseling Indication:Cardiac dysrhythmia Start:03-Apr-2016 Instruction Type:Provider Instructions for Treatment How to access health informa tion online Indication:Need for prophylactic vaccination and inoculation against influenza Start:03-Apr-2016 Instruction Type:Patient Education How to access health informa tion online - Detail Indication:Need for prophylactic vaccination and inoculation against influenza Start:03-Apr-2016 Instruction Type:Patient Education Patient Instructions Indication:Need for prophylactic vaccination and inoculation against influenza Start:03-Apr-2016 Instruction Type:Provider Instructions for Treatment How to access health informa tion online Indication:Asthma Start:21-May-2014 Instruction Type:Patient Education How to access health informa tion online - Detail Indication:Asthma Start:21-May-2014 Instruction Type:Patient Education Patient Instructions Indication:Asthma Start:21-May-2014 Instruction Type:Provider Instructions for Treatment Patient Instructions Indication:Vaccine for [id number] with poliomyelitis Start:27-Nov-2013 Instruction Type:Provider Instructions for Treatment Patient Instructions Indication:Screening for prostate cancer Start:28-Aug-2013 Instruction Type:Provider Instructions for Treatment [facility]; [facility] Work Phone: Instructions* Name Dates Details Patient Instructions Indication:[facility] Start:29-Mar-2023 Instruction Type:Provider Instructions for Treatment How to Access Health Informa tion Online using Patient Portal and [employer] Apps Indication:[facility] Start:29-Mar-2023 Instruction Type:Patient Education Patient Instructions Indication:BMI 24.0-24.9, adult Start:06-Apr-2022 Instruction Type:Provider Instructions for Treatment How to Access Health Informa tion Online using Patient Portal and [employer] Apps Indication:BMI 24.0-24.9, adult Start:06-Apr-2022 Instruction Type:Patient Education Patient Instructions Indication:[facility] Start:01-Apr-2021 Instruction Type:Provider Instructions for Treatment How to Access Health Informa tion Online using Patient Portal and [employer] Apps Indication:[facility] Start:01-Apr-2021 Instruction Type:Patient Education Patient Instructions Indication:Left knee pain Start:11-Mar-2021 Instruction Type:Provider Instructions for Treatment How to Access Health Informa tion Online using Patient Portal and [employer] Apps Indication:Left knee pain Start:11-Mar-2021 Instruction Type:Patient Education How to access health informa tion online Indication:COPD (chronic obstructive pulmonary disease) Start:09-Apr-2020 Instruction Type:Patient Education How to access health informa tion online - Detail Indication:COPD (chronic obstructive pulmonary disease) Start:09-Apr-2020 Instruction Type:Patient Education Patient Instructions Indication:COPD (chronic obstructive pulmonary disease) Start:09-Apr-2020 Instruction Type:Provider Instructions for Treatment How to access health informa tion online Indication:[facility] Start:06-Mar-2020 Instruction Type:Patient Education How to access health informa tion online - Detail Indication:[facility] Start:06-Mar-2020 Instruction Type:Patient Education Patient Instructions Indication:[facility] Start:06-Mar-2020 Instruction Type:Provider Instructions for Treatment How to access health informa tion online Indication:Nonsmoker Start:01-Dec-2019 Instruction Type:Patient Education How to access health informa tion online - Detail Indication:Nonsmoker Start:01-Dec-2019 Instruction Type:Patient Education Patient Instructions Indication:Nonsmoker Start:01-Dec-2019 Instruction Type:Provider Instructions for Treatment How to access health informa tion online Indication:Paronychia, finger Start:21-Mar-2019 Instruction Type:Patient Education How to access health informa tion online - Detail Indication:Paronychia, finger Start:21-Mar-2019 Instruction Type:Patient Education Patient Instructions Indication:Paronychia, finger Start:21-Mar-2019 Instruction Type:Provider Instructions for Treatment How to access health informa tion online Indication:Right shoulder pain Start:27-Dec-2018 Instruction Type:Patient Education How to access health informa tion online - Detail Indication:Right shoulder pain Start:27-Dec-2018 Instruction Type:Patient Education Patient Instructions Indication:Right shoulder pain Start:27-Dec-2018 Instruction Type:Provider Instructions for Treatment How to access health informa tion online Indication:[facility] Start:14-Dec-2018 Instruction Type:Patient Education How to access health informa tion online - Detail Indication:[facility] Start:14-Dec-2018 Instruction Type:Patient Education Patient Instructions Indication:[facility] Start:14-Dec-2018 Instruction Type:Provider Instructions for Treatment How to access health informa tion online Indication:Ventricular tachycardia Start:08-Apr-2018 Instruction Type:Patient Education How to access health informa tion online - Detail Indication:Ventricular tachycardia Start:08-Apr-2018 Instruction Type:Patient Education Patient Instructions Indication:Ventricular tachycardia Start:08-Apr-2018 Instruction Type:Provider Instructions for Treatment How to access health informa tion online Indication:BMI 25.0-25.9,adult Start:04-Apr-2018 Instruction Type:Patient Education How to access health informa tion online - Detail Indication:BMI 25.0-25.9,adult Start:04-Apr-2018 Instruction Type:Patient Education Patient Instructions Indication:BMI 25.0-25.9,adult Start:04-Apr-2018 Instruction Type:Provider Instructions for Treatment How to access health informa tion online Indication:Rib pain on right side Start:18-Jun-2017 Instruction Type:Patient Education How to access health informa tion online - Detail Indication:Rib pain on right side Start:18-Jun-2017 Instruction Type:Patient Education Patient Instructions Indication:Rib pain on right side Start:18-Jun-2017 Instruction Type:Provider Instructions for Treatment How to access health informa tion online Indication:Body mass index (BMI) 24.0-24.9, adult Start:24-Nov-2016 Instruction Type:Patient Education How to access health informa tion online - Detail Indication:Body mass index (BMI) 24.0-24.9, adult Start:24-Nov-2016 Instruction Type:Patient Education Patient Instructions Indication:Body mass index (BMI) 24.0-24.9, adult Start:24-Nov-2016 Instruction Type:Provider Instructions for Treatment cardiovascular counseling Indication:Cardiac dysrhythmia Start:03-Apr-2016 Instruction Type:Provider Instructions for Treatment How to access health informa tion online Indication:Need for prophylactic vaccination and inoculation against influenza Start:03-Apr-2016 Instruction Type:Patient Education How to access health informa tion online - Detail Indication:Need for prophylactic vaccination and inoculation against influenza Start:03-Apr-2016 Instruction Type:Patient Education Patient Instructions Indication:Need for prophylactic vaccination and inoculation against influenza Start:03-Apr-2016 Instruction Type:Provider Instructions for Treatment How to access health informa tion online Indication:Asthma Start:21-May-2014 Instruction Type:Patient Education How to access health informa tion online - Detail Indication:Asthma Start:21-May-2014 Instruction Type:Patient Education Patient Instructions Indication:Asthma Start:21-May-2014 Instruction Type:Provider Instructions for Treatment Patient Instructions Indication:Vaccine for gwpsexjopm-[id number] with poliomyelitis Start:27-Nov-2013 Instruction Type:Provider Instructions for Treatment Patient Instructions Indication:Screening for prostate cancer Start:28-Aug-2013 Instruction Type:Provider Instructions for Treatment [facility]; [facility] Work Phone: Instructions* Name Dates Details Patient Instructions Indication:[facility] Start:29-Mar-2023 Instruction Type:Provider Instructions for Treatment How to Access Health Informa tion Online using Patient Portal and [employer] Apps Indication:[facility] Start:29-Mar-2023 Instruction Type:Patient Education Patient Instructions Indication:BMI 24.0-24.9, adult Start:06-Apr-2022 Instruction Type:Provider Instructions for Treatment How to Access Health Informa tion Online using Patient Portal and [employer] Apps Indication:BMI 24.0-24.9, adult Start:06-Apr-2022 Instruction Type:Patient Education Patient Instructions Indication:[facility] Start:01-Apr-2021 Instruction Type:Provider Instructions for Treatment How to Access Health Informa tion Online using Patient Portal and [employer] Apps Indication:[facility] Start:01-Apr-2021 Instruction Type:Patient Education Patient Instructions Indication:Left knee pain Start:11-Mar-2021 Instruction Type:Provider Instructions for Treatment How to Access Health Informa tion Online using Patient Portal and [employer] Apps Indication:Left knee pain Start:11-Mar-2021 Instruction Type:Patient Education How to access health informa tion online Indication:COPD (chronic obstructive pulmonary disease) Start:09-Apr-2020 Instruction Type:Patient Education How to access health informa tion online - Detail Indication:COPD (chronic obstructive pulmonary disease) Start:09-Apr-2020 Instruction Type:Patient Education Patient Instructions Indication:COPD (chronic obstructive pulmonary disease) Start:09-Apr-2020 Instruction Type:Provider Instructions for Treatment How to access health informa tion online Indication:[facility] Start:06-Mar-2020 Instruction Type:Patient Education How to access health informa tion online - Detail Indication:[facility] Start:06-Mar-2020 Instruction Type:Patient Education Patient Instructions Indication:[facility] Start:06-Mar-2020 Instruction Type:Provider Instructions for Treatment How to access health informa tion online Indication:Nonsmoker Start:01-Dec-2019 Instruction Type:Patient Education How to access health informa tion online - Detail Indication:Nonsmoker Start:01-Dec-2019 Instruction Type:Patient Education Patient Instructions Indication:Nonsmoker Start:01-Dec-2019 Instruction Type:Provider Instructions for Treatment How to access health informa tion online Indication:Paronychia, finger Start:21-Mar-2019 Instruction Type:Patient Education How to access health informa tion online - Detail Indication:Paronychia, finger Start:21-Mar-2019 Instruction Type:Patient Education Patient Instructions Indication:Paronychia, finger Start:21-Mar-2019 Instruction Type:Provider Instructions for Treatment How to access health informa tion online Indication:Right shoulder pain Start:27-Dec-2018 Instruction Type:Patient Education How to access health informa tion online - Detail Indication:Right shoulder pain Start:27-Dec-2018 Instruction Type:Patient Education Patient Instructions Indication:Right shoulder pain Start:27-Dec-2018 Instruction Type:Provider Instructions for Treatment How to access health informa tion online Indication:[facility] Start:14-Dec-2018 Instruction Type:Patient Education How to access health informa tion online - Detail Indication:[facility] Start:14-Dec-2018 Instruction Type:Patient Education Patient Instructions Indication:[facility] Start:14-Dec-2018 Instruction Type:Provider Instructions for Treatment How to access health informa tion online Indication:Ventricular tachycardia Start:08-Apr-2018 Instruction Type:Patient Education How to access health informa tion online - Detail Indication:Ventricular tachycardia Start:08-Apr-2018 Instruction Type:Patient Education Patient Instructions Indication:Ventricular tachycardia Start:08-Apr-2018 Instruction Type:Provider Instructions for Treatment How to access health informa tion online Indication:BMI 25.0-25.9,adult Start:04-Apr-2018 Instruction Type:Patient Education How to access health informa tion online - Detail Indication:BMI 25.0-25.9,adult Start:04-Apr-2018 Instruction Type:Patient Education Patient Instructions Indication:BMI 25.0-25.9,adult Start:04-Apr-2018 Instruction Type:Provider Instructions for Treatment How to access health informa tion online Indication:Rib pain on right side Start:18-Jun-2017 Instruction Type:Patient Education How to access health informa tion online - Detail Indication:Rib pain on right side Start:18-Jun-2017 Instruction Type:Patient Education Patient Instructions Indication:Rib pain on right side Start:18-Jun-2017 Instruction Type:Provider Instructions for Treatment How to access health informa tion online Indication:Body mass index (BMI) 24.0-24.9, adult Start:24-Nov-2016 Instruction Type:Patient Education How to access health informa tion online - Detail Indication:Body mass index (BMI) 24.0-24.9, adult Start:24-Nov-2016 Instruction Type:Patient Education Patient Instructions Indication:Body mass index (BMI) 24.0-24.9, adult Start:24-Nov-2016 Instruction Type:Provider Instructions for Treatment cardiovascular counseling Indication:Cardiac dysrhythmia Start:03-Apr-2016 Instruction Type:Provider Instructions for Treatment How to access health informa tion online Indication:Need for prophylactic vaccination and inoculation against influenza Start:03-Apr-2016 Instruction Type:Patient Education How to access health informa tion online - Detail Indication:Need for prophylactic vaccination and inoculation against influenza Start:03-Apr-2016 Instruction Type:Patient Education Patient Instructions Indication:Need for prophylactic vaccination and inoculation against influenza Start:03-Apr-2016 Instruction Type:Provider Instructions for Treatment How to access health informa tion online Indication:Asthma Start:21-May-2014 Instruction Type:Patient Education How to access health informa tion online - Detail Indication:Asthma Start:21-May-2014 Instruction Type:Patient Education Patient Instructions Indication:Asthma Start:21-May-2014 Instruction Type:Provider Instructions for Treatment Patient Instructions Indication:Vaccine for ryajmmiucj-jwoqxrq-[id number] with poliomyelitis Start:27-Nov-2013 Instruction Type:Provider Instructions for Treatment Patient Instructions Indication:Screening for prostate cancer Start:28-Aug-2013 Instruction Type:Provider Instructions for Treatment [facility]; [facility] Work Phone: Instructions* Name Dates Details Patient Instructions Indication:[facility] Start:29-Mar-2023 Instruction Type:Provider Instructions for Treatment How to Access Health Informa tion Online using Patient Portal and [employer] Apps Indication:[facility] Start:29-Mar-2023 Instruction Type:Patient Education Patient Instructions Indication:BMI 24.0-24.9, adult Start:06-Apr-2022 Instruction Type:Provider Instructions for Treatment How to Access Health Informa tion Online using Patient Portal and [employer] Apps Indication:BMI 24.0-24.9, adult Start:06-Apr-2022 Instruction Type:Patient Education Patient Instructions Indication:[facility] Start:01-Apr-2021 Instruction Type:Provider Instructions for Treatment How to Access Health Informa tion Online using Patient Portal and [employer] Apps Indication:[facility] Start:01-Apr-2021 Instruction Type:Patient Education Patient Instructions Indication:Left knee pain Start:11-Mar-2021 Instruction Type:Provider Instructions for Treatment How to Access Health Informa tion Online using Patient Portal and [employer] Apps Indication:Left knee pain Start:11-Mar-2021 Instruction Type:Patient Education How to access health informa tion online Indication:COPD (chronic obstructive pulmonary disease) Start:09-Apr-2020 Instruction Type:Patient Education How to access health informa tion online - Detail Indication:COPD (chronic obstructive pulmonary disease) Start:09-Apr-2020 Instruction Type:Patient Education Patient Instructions Indication:COPD (chronic obstructive pulmonary disease) Start:09-Apr-2020 Instruction Type:Provider Instructions for Treatment How to access health informa tion online Indication:[facility] Start:06-Mar-2020 Instruction Type:Patient Education How to access health informa tion online - Detail Indication:[facility] Start:06-Mar-2020 Instruction Type:Patient Education Patient Instructions Indication:[facility] Start:06-Mar-2020 Instruction Type:Provider Instructions for Treatment How to access health informa tion online Indication:Nonsmoker Start:01-Dec-2019 Instruction Type:Patient Education How to access health informa tion online - Detail Indication:Nonsmoker Start:01-Dec-2019 Instruction Type:Patient Education Patient Instructions Indication:Nonsmoker Start:01-Dec-2019 Instruction Type:Provider Instructions for Treatment How to access health informa tion online Indication:Paronychia, finger Start:21-Mar-2019 Instruction Type:Patient Education How to access health informa tion online - Detail Indication:Paronychia, finger Start:21-Mar-2019 Instruction Type:Patient Education Patient Instructions Indication:Paronychia, finger Start:21-Mar-2019 Instruction Type:Provider Instructions for Treatment How to access health informa tion online Indication:Right shoulder pain Start:27-Dec-2018 Instruction Type:Patient Education How to access health informa tion online - Detail Indication:Right shoulder pain Start:27-Dec-2018 Instruction Type:Patient Education Patient Instructions Indication:Right shoulder pain Start:27-Dec-2018 Instruction Type:Provider Instructions for Treatment How to access health informa tion online Indication:[facility] Start:14-Dec-2018 Instruction Type:Patient Education How to access health informa tion online - Detail Indication:[facility] Start:14-Dec-2018 Instruction Type:Patient Education Patient Instructions Indication:[facility] Start:14-Dec-2018 Instruction Type:Provider Instructions for Treatment How to access health informa tion online Indication:Ventricular tachycardia Start:08-Apr-2018 Instruction Type:Patient Education How to access health informa tion online - Detail Indication:Ventricular tachycardia Start:08-Apr-2018 Instruction Type:Patient Education Patient Instructions Indication:Ventricular tachycardia Start:08-Apr-2018 Instruction Type:Provider Instructions for Treatment How to access health informa tion online Indication:BMI 25.0-25.9,adult Start:04-Apr-2018 Instruction Type:Patient Education How to access health informa tion online - Detail Indication:BMI 25.0-25.9,adult Start:04-Apr-2018 Instruction Type:Patient Education Patient Instructions Indication:BMI 25.0-25.9,adult Start:04-Apr-2018 Instruction Type:Provider Instructions for Treatment How to access health informa tion online Indication:Rib pain on right side Start:18-Jun-2017 Instruction Type:Patient Education How to access health informa tion online - Detail Indication:Rib pain on right side Start:18-Jun-2017 Instruction Type:Patient Education Patient Instructions Indication:Rib pain on right side Start:18-Jun-2017 Instruction Type:Provider Instructions for Treatment How to access health informa tion online Indication:Body mass index (BMI) 24.0-24.9, adult Start:24-Nov-2016 Instruction Type:Patient Education How to access health informa tion online - Detail Indication:Body mass index (BMI) 24.0-24.9, adult Start:24-Nov-2016 Instruction Type:Patient Education Patient Instructions Indication:Body mass index (BMI) 24.0-24.9, adult Start:24-Nov-2016 Instruction Type:Provider Instructions for Treatment cardiovascular counseling Indication:Cardiac dysrhythmia Start:03-Apr-2016 Instruction Type:Provider Instructions for Treatment How to access health informa tion online Indication:Need for prophylactic vaccination and inoculation against influenza Start:03-Apr-2016 Instruction Type:Patient Education How to access health informa tion online - Detail Indication:Need for prophylactic vaccination and inoculation against influenza Start:03-Apr-2016 Instruction Type:Patient Education Patient Instructions Indication:Need for prophylactic vaccination and inoculation against influenza Start:03-Apr-2016 Instruction Type:Provider Instructions for Treatment How to access health informa tion online Indication:Asthma Start:21-May-2014 Instruction Type:Patient Education How to access health informa tion online - Detail Indication:Asthma Start:21-May-2014 Instruction Type:Patient Education Patient Instructions Indication:Asthma Start:21-May-2014 Instruction Type:Provider Instructions for Treatment Patient Instructions Indication:Vaccine for dmqxdpslav-eqecyvl-fabbltnca with poliomyelitis Start:27-Nov-2013 Instruction Type:Provider Instructions for Treatment Patient Instructions Indication:Screening for prostate cancer Start:28-Aug-2013 Instruction Type:Provider Instructions for Treatment [facility] Work Phone: Family History No Family History Records FoundUnknown Family Member Name Dates Details Brother 1 Comments: copd smoker ca d Status:Active Father Comments:Ulcer dx- esophagea l cancer - smoker in 80s Status:Active First Degree Relatives Comments:7 siblings- older b rother had heart issues - sister had Chrohns disease Status:Active Mother Comments: at 96- natural causes Status:Active Unknown Family Member Name Dates Details Brother 1 Comments: copd smoker ca d Status:Active Father Comments:Ulcer dx- esophagea l cancer - smoker in 80s Status:Active First Degree Relatives Comments:7 siblings- older kimberly ogden had heart issues - sister had Chrohns disease Status:Active Mother Comments: at 96- natural causes Status:Active Unknown Family Member Name Dates Details Brother 1 Comments: copd smoker ca d Status:Active Father Comments:Ulcer dx- esophagea l cancer - smoker in 80s Status:Active First Degree Relatives Comments:7 siblings- older kimberly ogden had heart issues - sister had Chrohns disease Status:Active Mother Comments: at 96- natural causes Status:Active Unknown Family Member Name Dates Details Brother 1 Comments: copd smoker ca d Status:Active Father Comments:Ulcer dx- esophagea l cancer - smoker in 80s Status:Active First Degree Relatives Comments:7 siblings- older kimberly ogden had heart issues - sister had Chrohns disease Status:Active Mother Comments: at 96- natural causes Status:Active Unknown Family Member Name Dates Details Brother 1 Comments: copd smoker ca d Status:Active Father Comments:Ulcer dx- esophagea l cancer - smoker in 80s Status:Active First Degree Relatives Comments:7 siblings- older kimberly ogden had heart issues - sister had Chrohns disease Status:Active Mother Comments: at 96- natural causes Status:Active Unknown Family Member Name Dates Details Brother 1 Comments: copd smoker ca d Status:Active Father Comments:Ulcer dx- esophagea l cancer - smoker in 80s Status:Active First Degree Relatives Comments:7 siblings- older kimberly ogden had heart issues - sister had Chrohns disease Status:Active Mother Comments: at 96- natural causes Status:Active Unknown Family Member Name Dates Details Brother 1 Comments: copd smoker ca d Status:Active Father Comments:Ulcer dx- esophagea l cancer - smoker in 80s Status:Active First Degree Relatives Comments:7 siblings- older kimberly ogden had heart issues - sister had Chrohns disease Status:Active Mother Comments: at 96- natural causes Status:Active Unknown Family Member Name Dates Details Brother 1 Comments: copd smoker ca d Status:Active Father Comments:Ulcer dx- esophagea l cancer - smoker in 80s Status:Active First Degree Relatives Comments:7 siblings- older kimberly ogden had heart issues - sister had Chrohns disease Status:Active Mother Comments: at 96- natural causes Status:Active Unknown Family Member Name Dates Details Brother 1 Comments: copd smoker ca d Status:Active Father Comments:Ulcer dx- esophagea l cancer - smoker in 80s Status:Active First Degree Relatives Comments:7 siblings- older kimberly ogden had heart issues - sister had Chrohns disease Status:Active Mother Comments: at 96- natural causes Status:Active Unknown Family Member Name Dates Details Brother 1 Comments: copd smoker ca d Status:Active Father Comments:Ulcer dx- esophagea l cancer - smoker in 80s Status:Active First Degree Relatives Comments:7 siblings- older kimberly ogden had heart issues - sister had Chrohns disease Status:Active Mother Comments: at 96- natural causes Status:Active Unknown Family Member Name Dates Details Brother 1 Comments: copd smoker ca d Status:Active Father Comments:Ulcer dx- esophagea l cancer - smoker in 80s Status:Active First Degree Relatives Comments:7 siblings- older kimberly ogden had heart issues - sister had Chrohns disease Status:Active Mother Comments: at 96- natural causes Status:Active Unknown Family Member Name Dates Details Brother 1 Comments: copd smoker ca d Status:Active Father Comments:Ulcer dx- esophagea l cancer - smoker in 80s Status:Active First Degree Relatives Comments:7 siblings- older kimberly ogden had heart issues - sister had Chrohns disease Status:Active Mother Comments: at 96- natural causes Status:Active Unknown Family Member Name Dates Details Brother 1 Comments: copd smoker ca d Status:Active Father Comments:Ulcer dx- esophagea l cancer - smoker in 80s Status:Active First Degree Relatives Comments:7 siblings- older kimberly ogden had heart issues - sister had Chrohns disease Status:Active Mother Comments: at 96- natural causes Status:Active Unknown Family Member Name Dates Details Brother 1 Comments: copd smoker ca d Status:Active Father Comments:Ulcer dx- esophagea l cancer - smoker in 80s Status:Active First Degree Relatives Comments:7 siblings- older kimberly ogden had heart issues - sister had Chrohns disease Status:Active Mother Comments: at 96- natural causes Status:Active Unknown Family Member Name Dates Details Brother 1 Comments: copd smoker ca d Status:Active Father Comments:Ulcer dx- esophagea l cancer - smoker in 80s Status:Active First Degree Relatives Comments:7 siblings- older kimberly ogden had heart issues - sister had Chrohns disease Status:Active Mother Comments: at 96- natural causes Status:Active Unknown Family Member Name Dates Details Brother 1 Comments: copd smoker ca d Status:Active Father Comments:Ulcer dx- esophagea l cancer - smoker in 80s Status:Active First Degree Relatives Comments:7 siblings- older kimberly ogden had heart issues - sister had Chrohns disease Status:Active Mother Comments: at 96- natural causes Status:Active Unknown Family Member Name Dates Details Brother 1 Comments: copd smoker ca d Status:Active Father Comments:Ulcer dx- esophagea l cancer - smoker in 80s Status:Active First Degree Relatives Comments:7 siblings- older kimberly ogden had heart issues - sister had Chrohns disease Status:Active Mother Comments: at 96- natural causes Status:Active Unknown Family Member Name Dates Details Brother 1 Comments: copd smoker ca d Status:Active Father Comments:Ulcer dx- esophagea l cancer - smoker in 80s Status:Active First Degree Relatives Comments:7 siblings- older kimberly ogden had heart issues - sister had Chrohns disease Status:Active Mother Comments: at 96- natural causes Status:Active Unknown Family Member Name Dates Details Brother 1 Comments: copd smoker ca d Status:Active Father Comments:Ulcer dx- esophagea l cancer - smoker in 80s Status:Active First Degree Relatives Comments:7 siblings- older kimberly ogden had heart issues - sister had Chrohns disease Status:Active Mother Comments: at 96- natural causes Status:Active Unknown Family Member Name Dates Details Brother 1 Comments: copd smoker ca d Status:Active Father Comments:Ulcer dx- esophagea l cancer - smoker in 80s Status:Active First Degree Relatives Comments:7 siblings- older kimberly ogden had heart issues - sister had Chrohns disease Status:Active Mother Comments: at 96- natural causes Status:Active Unknown Family Member Name Dates Details Brother 1 Comments: copd smoker ca d Status:Active Father Comments:Ulcer dx- esophagea l cancer - smoker in 80s Status:Active First Degree Relatives Comments:7 siblings- older kimberly ogden had heart issues - sister had Chrohns disease Status:Active Mother Comments: at 96- natural causes Status:Active Unknown Family Member Name Dates Details Brother 1 Comments: copd smoker ca d Status:Active Father Comments:Ulcer dx- esophagea l cancer - smoker in 80s Status:Active First Degree Relatives Comments:7 siblings- older kimberly ogden had heart issues - sister had Chrohns disease Status:Active Mother Comments: at 96- natural causes Status:Active Unknown Family Member Name Dates Details Brother 1 Comments: copd smoker ca d Status:Active Father Comments:Ulcer dx- esophagea l cancer - smoker in 80s Status:Active First Degree Relatives Comments:7 siblings- older kimberly ogden had heart issues - sister had Chrohns disease Status:Active Mother Comments: at 96- natural causes Status:Active Unknown Family Member Name Dates Details Brother 1 Comments: copd smoker ca d Status:Active Father Comments:Ulcer dx- esophagea l cancer - smoker in 80s Status:Active First Degree Relatives Comments:7 siblings- older kimberly ogden had heart issues - sister had Chrohns disease Status:Active Mother Comments: at 96- natural causes Status:Active Relationship Condition Age at Onset Recorded Date/T srinivas mother Coronary artery disease Unknown brother Coronary artery disease Unknown History of coronary artery bypass surgery Unknown sister Hypertension Unknown Unknown Family Member Name Dates Details Brother 1 Comments: copd smoker ca d Status:Active Father Comments:Ulcer dx- esophagea l cancer - smoker in 80s Status:Active First Degree Relatives Comments:7 siblings- older kimberly ogden had heart issues - sister had Chrohns disease Status:Active Mother Comments: at 96- natural causes Status:Active Unknown Family Member Name Dates Details Brother 1 Comments: copd smoker ca d Status:Active Father Comments:Ulcer dx- esophagea l cancer - smoker in 80s Status:Active First Degree Relatives Comments:7 siblings- older kimberly ogden had heart issues - sister had Chrohns disease Status:Active Mother Comments: at 96- natural causes Status:Active Unknown Family Member Name Dates Details Brother 1 Comments: copd smoker ca d Status:Active Father Comments:Ulcer dx- esophagea l cancer - smoker in 80s Status:Active First Degree Relatives Comments:7 siblings- older kimberly ogden had heart issues - sister had Chrohns disease Status:Active Mother Comments: at 96- natural causes Status:Active Unknown Family Member Name Dates Details Brother 1 Comments: copd smoker ca d Status:Active Father Comments:Ulcer dx- esophagea l cancer - smoker in 80s Status:Active First Degree Relatives Comments:7 siblings- older kimberly ogden had heart issues - sister had Chrohns disease Status:Active Mother Comments: at 96- natural causes Status:Active Unknown Family Member Name Dates Details Brother 1 Comments: copd smoker ca d Status:Active Father Comments:Ulcer dx- esophagea l cancer - smoker in 80s Status:Active First Degree Relatives Comments:7 siblings- older kimberly ogden had heart issues - sister had Chrohns disease Status:Active Mother Comments: at 96- natural causes Status:Active Unknown Family Member Name Dates Details Brother 1 Comments: copd smoker ca d Status:Active Father Comments:Ulcer dx- esophagea l cancer - smoker in 80s Status:Active First Degree Relatives Comments:7 siblings- older kimberly ogden had heart issues - sister had Chrohns disease Status:Active Mother Comments: at 96- natural causes Status:Active Instructions Name Dates Details Ventricular tachycardia : Ho w to access health information online Indication:Ventricular tachycardia Ventricular tachycardia : Ho w to access health information online - Detail Indication:Ventricular tachycardia Ventricular tachycardia : Pa tient Instructions Indication:Ventricular tachycardia BMI 25.0-25.9,adult : How to access health information online Indication:BMI 25.0-25.9,adult BMI 25.0-25.9,adult : How to access health information online - Detail Indication:BMI 25.0-25.9,adult BMI 25.0-25.9,adult : Patien t Instructions Indication:BMI 25.0-25.9,adult Rib pain on right side : How to access health information online Indication:Rib pain on right side Rib pain on right side : How to access health information online - Detail Indication:Rib pain on right side Rib pain on right side : Pat ient Instructions Indication:Rib pain on right side Body mass index (BMI) 24.0-2 4.9, adult : How to access health information online Indication:Body mass index (BMI) 24.0-24.9, adult Body mass index (BMI) 24.0-2 4.9, adult : How to access health information online - Detail Indication:Body mass index (BMI) 24.0-24.9, adult Body mass index (BMI) 24.0-2 4.9, adult : Patient Instructions Indication:Body mass index (BMI) 24.0-24.9, adult Cardiac dysrhythmia : cardio vascular counseling Indication:Cardiac dysrhythmia Need for prophylactic vaccin ation and inoculation against influenza : How to access health information online Indication:Need for prophylactic vaccination and inoculation against influenza Need for prophylactic vaccin ation and inoculation against influenza : How to access health information online - Detail Indication:Need for prophylactic vaccination and inoculation against influenza Need for prophylactic vaccin ation and inoculation against influenza : Patient Instructions Indication:Need for prophylactic vaccination and inoculation against influenza Asthma : How to access Le[facility] information online Indication:Asthma Asthma : How to access [facility] information online - Detail Indication:Asthma Asthma : Patient Instruction s Indication:Asthma Vaccine for diphtheria-tetan us-pertussis with poliomyelitis : Patient Instructions Indication:Vaccine for pkydgbpnlv-pnmwpym-wdfuyhlrl with poliomyelitis Screening for prostate cance r : Patient Instructions Indication:Screening for prostate cancer Name Dates Details How to access health informa tion online Indication:Ventricular tachycardia Start:08-Apr-2018 Instruction Type:Patient Education How to access health informa tion online - Detail Indication:Ventricular tachycardia Start:08-Apr-2018 Instruction Type:Patient Education Patient Instructions Indication:Ventricular tachycardia Start:08-Apr-2018 Instruction Type:Provider Instructions for Treatment How to access health informa tion online Indication:BMI 25.0-25.9,adult Start:04-Apr-2018 Instruction Type:Patient Education How to access health informa tion online - Detail Indication:BMI 25.0-25.9,adult Start:04-Apr-2018 Instruction Type:Patient Education Patient Instructions Indication:BMI 25.0-25.9,adult Start:04-Apr-2018 Instruction Type:Provider Instructions for Treatment How to access health informa tion online Indication:Rib pain on right side Start:18-Jun-2017 Instruction Type:Patient Education How to access health informa tion online - Detail Indication:Rib pain on right side Start:18-Jun-2017 Instruction Type:Patient Education Patient Instructions Indication:Rib pain on right side Start:18-Jun-2017 Instruction Type:Provider Instructions for Treatment How to access health informa tion online Indication:Body mass index (BMI) 24.0-24.9, adult Start:24-Nov-2016 Instruction Type:Patient Education How to access health informa tion online - Detail Indication:Body mass index (BMI) 24.0-24.9, adult Start:24-Nov-2016 Instruction Type:Patient Education Patient Instructions Indication:Body mass index (BMI) 24.0-24.9, adult Start:24-Nov-2016 Instruction Type:Provider Instructions for Treatment cardiovascular counseling Indication:Cardiac dysrhythmia Start:03-Apr-2016 Instruction Type:Provider Instructions for Treatment How to access health informa tion online Indication:Need for prophylactic vaccination and inoculation against influenza Start:03-Apr-2016 Instruction Type:Patient Education How to access health informa tion online - Detail Indication:Need for prophylactic vaccination and inoculation against influenza Start:03-Apr-2016 Instruction Type:Patient Education Patient Instructions Indication:Need for prophylactic vaccination and inoculation against influenza Start:03-Apr-2016 Instruction Type:Provider Instructions for Treatment How to access health informa tion online Indication:Asthma Start:21-May-2014 Instruction Type:Patient Education How to access health informa tion online - Detail Indication:Asthma Start:21-May-2014 Instruction Type:Patient Education Patient Instructions Indication:Asthma Start:21-May-2014 Instruction Type:Provider Instructions for Treatment Patient Instructions Indication:Vaccine for fhkzfopwfc-ukbesxp-bruwpafzw with poliomyelitis Start:27-Nov-2013 Instruction Type:Provider Instructions for Treatment Patient Instructions Indication:Screening for prostate cancer Start:28-Aug-2013 Instruction Type:Provider Instructions for Treatment Name Dates Details How to access health informa tion online Indication:Ventricular tachycardia Start:08-Apr-2018 Instruction Type:Patient Education How to access health informa tion online - Detail Indication:Ventricular tachycardia Start:08-Apr-2018 Instruction Type:Patient Education Patient Instructions Indication:Ventricular tachycardia Start:08-Apr-2018 Instruction Type:Provider Instructions for Treatment How to access health informa tion online Indication:BMI 25.0-25.9,adult Start:04-Apr-2018 Instruction Type:Patient Education How to access health informa tion online - Detail Indication:BMI 25.0-25.9,adult Start:04-Apr-2018 Instruction Type:Patient Education Patient Instructions Indication:BMI 25.0-25.9,adult Start:04-Apr-2018 Instruction Type:Provider Instructions for Treatment How to access health informa tion online Indication:Rib pain on right side Start:18-Jun-2017 Instruction Type:Patient Education How to access health informa tion online - Detail Indication:Rib pain on right side Start:18-Jun-2017 Instruction Type:Patient Education Patient Instructions Indication:Rib pain on right side Start:18-Jun-2017 Instruction Type:Provider Instructions for Treatment How to access health informa tion online Indication:Body mass index (BMI) 24.0-24.9, adult Start:24-Nov-2016 Instruction Type:Patient Education How to access health informa tion online - Detail Indication:Body mass index (BMI) 24.0-24.9, adult Start:24-Nov-2016 Instruction Type:Patient Education Patient Instructions Indication:Body mass index (BMI) 24.0-24.9, adult Start:24-Nov-2016 Instruction Type:Provider Instructions for Treatment cardiovascular counseling Indication:Cardiac dysrhythmia Start:03-Apr-2016 Instruction Type:Provider Instructions for Treatment How to access health informa tion online Indication:Need for prophylactic vaccination and inoculation against influenza Start:03-Apr-2016 Instruction Type:Patient Education How to access health informa tion online - Detail Indication:Need for prophylactic vaccination and inoculation against influenza Start:03-Apr-2016 Instruction Type:Patient Education Patient Instructions Indication:Need for prophylactic vaccination and inoculation against influenza Start:03-Apr-2016 Instruction Type:Provider Instructions for Treatment How to access health informa tion online Indication:Asthma Start:21-May-2014 Instruction Type:Patient Education How to access health informa tion online - Detail Indication:Asthma Start:21-May-2014 Instruction Type:Patient Education Patient Instructions Indication:Asthma Start:21-May-2014 Instruction Type:Provider Instructions for Treatment Patient Instructions Indication:Vaccine for fbkdbtvzgw-wrsjvnt-nhoxfwvst with poliomyelitis Start:27-Nov-2013 Instruction Type:Provider Instructions for Treatment Patient Instructions Indication:Screening for prostate cancer Start:28-Aug-2013 Instruction Type:Provider Instructions for Treatment Name Dates Details How to access health informa tion online Indication:[facility] Start:14-Dec-2018 Instruction Type:Patient Education How to access health informa tion online - Detail Indication:[facility] Start:14-Dec-2018 Instruction Type:Patient Education Patient Instructions Indication:[facility] Start:14-Dec-2018 Instruction Type:Provider Instructions for Treatment How to access health informa tion online Indication:Ventricular tachycardia Start:08-Apr-2018 Instruction Type:Patient Education How to access health informa tion online - Detail Indication:Ventricular tachycardia Start:08-Apr-2018 Instruction Type:Patient Education Patient Instructions Indication:Ventricular tachycardia Start:08-Apr-2018 Instruction Type:Provider Instructions for Treatment How to access health informa tion online Indication:BMI 25.0-25.9,adult Start:04-Apr-2018 Instruction Type:Patient Education How to access health informa tion online - Detail Indication:BMI 25.0-25.9,adult Start:04-Apr-2018 Instruction Type:Patient Education Patient Instructions Indication:BMI 25.0-25.9,adult Start:04-Apr-2018 Instruction Type:Provider Instructions for Treatment How to access health informa tion online Indication:Rib pain on right side Start:18-Jun-2017 Instruction Type:Patient Education How to access health informa tion online - Detail Indication:Rib pain on right side Start:18-Jun-2017 Instruction Type:Patient Education Patient Instructions Indication:Rib pain on right side Start:18-Jun-2017 Instruction Type:Provider Instructions for Treatment How to access health informa tion online Indication:Body mass index (BMI) 24.0-24.9, adult Start:24-Nov-2016 Instruction Type:Patient Education How to access health informa tion online - Detail Indication:Body mass index (BMI) 24.0-24.9, adult Start:24-Nov-2016 Instruction Type:Patient Education Patient Instructions Indication:Body mass index (BMI) 24.0-24.9, adult Start:24-Nov-2016 Instruction Type:Provider Instructions for Treatment cardiovascular counseling Indication:Cardiac dysrhythmia Start:03-Apr-2016 Instruction Type:Provider Instructions for Treatment How to access health informa tion online Indication:Need for prophylactic vaccination and inoculation against influenza Start:03-Apr-2016 Instruction Type:Patient Education How to access health informa tion online - Detail Indication:Need for prophylactic vaccination and inoculation against influenza Start:03-Apr-2016 Instruction Type:Patient Education Patient Instructions Indication:Need for prophylactic vaccination and inoculation against influenza Start:03-Apr-2016 Instruction Type:Provider Instructions for Treatment How to access health informa tion online Indication:Asthma Start:21-May-2014 Instruction Type:Patient Education How to access health informa tion online - Detail Indication:Asthma Start:21-May-2014 Instruction Type:Patient Education Patient Instructions Indication:Asthma Start:21-May-2014 Instruction Type:Provider Instructions for Treatment Patient Instructions Indication:Vaccine for ypekqvgjji-bajfwpm-berqrxhmw with poliomyelitis Start:27-Nov-2013 Instruction Type:Provider Instructions for Treatment Patient Instructions Indication:Screening for prostate cancer Start:28-Aug-2013 Instruction Type:Provider Instructions for Treatment Name Dates Details How to access health informa tion online Indication:[facility] Start:14-Dec-2018 Instruction Type:Patient Education How to access health informa tion online - Detail Indication:[facility] Start:14-Dec-2018 Instruction Type:Patient Education Patient Instructions Indication:[facility] Start:14-Dec-2018 Instruction Type:Provider Instructions for Treatment How to access health informa tion online Indication:Ventricular tachycardia Start:08-Apr-2018 Instruction Type:Patient Education How to access health informa tion online - Detail Indication:Ventricular tachycardia Start:08-Apr-2018 Instruction Type:Patient Education Patient Instructions Indication:Ventricular tachycardia Start:08-Apr-2018 Instruction Type:Provider Instructions for Treatment How to access health informa tion online Indication:BMI 25.0-25.9,adult Start:04-Apr-2018 Instruction Type:Patient Education How to access health informa tion online - Detail Indication:BMI 25.0-25.9,adult Start:04-Apr-2018 Instruction Type:Patient Education Patient Instructions Indication:BMI 25.0-25.9,adult Start:04-Apr-2018 Instruction Type:Provider Instructions for Treatment How to access health informa tion online Indication:Rib pain on right side Start:18-Jun-2017 Instruction Type:Patient Education How to access health informa tion online - Detail Indication:Rib pain on right side Start:18-Jun-2017 Instruction Type:Patient Education Patient Instructions Indication:Rib pain on right side Start:18-Jun-2017 Instruction Type:Provider Instructions for Treatment How to access health informa tion online Indication:Body mass index (BMI) 24.0-24.9, adult Start:24-Nov-2016 Instruction Type:Patient Education How to access health informa tion online - Detail Indication:Body mass index (BMI) 24.0-24.9, adult Start:24-Nov-2016 Instruction Type:Patient Education Patient Instructions Indication:Body mass index (BMI) 24.0-24.9, adult Start:24-Nov-2016 Instruction Type:Provider Instructions for Treatment cardiovascular counseling Indication:Cardiac dysrhythmia Start:03-Apr-2016 Instruction Type:Provider Instructions for Treatment How to access health informa tion online Indication:Need for prophylactic vaccination and inoculation against influenza Start:03-Apr-2016 Instruction Type:Patient Education How to access health informa tion online - Detail Indication:Need for prophylactic vaccination and inoculation against influenza Start:03-Apr-2016 Instruction Type:Patient Education Patient Instructions Indication:Need for prophylactic vaccination and inoculation against influenza Start:03-Apr-2016 Instruction Type:Provider Instructions for Treatment How to access health informa tion online Indication:Asthma Start:21-May-2014 Instruction Type:Patient Education How to access health informa tion online - Detail Indication:Asthma Start:21-May-2014 Instruction Type:Patient Education Patient Instructions Indication:Asthma Start:21-May-2014 Instruction Type:Provider Instructions for Treatment Patient Instructions Indication:Vaccine for nmatjoegyz-oykawyb-rygitpgrj with poliomyelitis Start:27-Nov-2013 Instruction Type:Provider Instructions for Treatment Patient Instructions Indication:Screening for prostate cancer Start:28-Aug-2013 Instruction Type:Provider Instructions for Treatment Name Dates Details How to access health informa tion online Indication:Right shoulder pain Start:27-Dec-2018 Instruction Type:Patient Education How to access health informa tion online - Detail Indication:Right shoulder pain Start:27-Dec-2018 Instruction Type:Patient Education Patient Instructions Indication:Right shoulder pain Start:27-Dec-2018 Instruction Type:Provider Instructions for Treatment How to access health informa tion online Indication:[facility] Start:14-Dec-2018 Instruction Type:Patient Education How to access health informa tion online - Detail Indication:[facility] Start:14-Dec-2018 Instruction Type:Patient Education Patient Instructions Indication:[facility] Start:14-Dec-2018 Instruction Type:Provider Instructions for Treatment How to access health informa tion online Indication:Ventricular tachycardia Start:08-Apr-2018 Instruction Type:Patient Education How to access health informa tion online - Detail Indication:Ventricular tachycardia Start:08-Apr-2018 Instruction Type:Patient Education Patient Instructions Indication:Ventricular tachycardia Start:08-Apr-2018 Instruction Type:Provider Instructions for Treatment How to access health informa tion online Indication:BMI 25.0-25.9,adult Start:04-Apr-2018 Instruction Type:Patient Education How to access health informa tion online - Detail Indication:BMI 25.0-25.9,adult Start:04-Apr-2018 Instruction Type:Patient Education Patient Instructions Indication:BMI 25.0-25.9,adult Start:04-Apr-2018 Instruction Type:Provider Instructions for Treatment How to access health informa tion online Indication:Rib pain on right side Start:18-Jun-2017 Instruction Type:Patient Education How to access health informa tion online - Detail Indication:Rib pain on right side Start:18-Jun-2017 Instruction Type:Patient Education Patient Instructions Indication:Rib pain on right side Start:18-Jun-2017 Instruction Type:Provider Instructions for Treatment How to access health informa tion online Indication:Body mass index (BMI) 24.0-24.9, adult Start:24-Nov-2016 Instruction Type:Patient Education How to access health informa tion online - Detail Indication:Body mass index (BMI) 24.0-24.9, adult Start:24-Nov-2016 Instruction Type:Patient Education Patient Instructions Indication:Body mass index (BMI) 24.0-24.9, adult Start:24-Nov-2016 Instruction Type:Provider Instructions for Treatment cardiovascular counseling Indication:Cardiac dysrhythmia Start:03-Apr-2016 Instruction Type:Provider Instructions for Treatment How to access health informa tion online Indication:Need for prophylactic vaccination and inoculation against influenza Start:03-Apr-2016 Instruction Type:Patient Education How to access health informa tion online - Detail Indication:Need for prophylactic vaccination and inoculation against influenza Start:03-Apr-2016 Instruction Type:Patient Education Patient Instructions Indication:Need for prophylactic vaccination and inoculation against influenza Start:03-Apr-2016 Instruction Type:Provider Instructions for Treatment How to access health informa tion online Indication:Asthma Start:21-May-2014 Instruction Type:Patient Education How to access health informa tion online - Detail Indication:Asthma Start:21-May-2014 Instruction Type:Patient Education Patient Instructions Indication:Asthma Start:21-May-2014 Instruction Type:Provider Instructions for Treatment Patient Instructions Indication:Vaccine for xbadsyylra-[id number]-[id number] with poliomyelitis Start:27-Nov-2013 Instruction Type:Provider Instructions for Treatment Patient Instructions Indication:Screening for prostate cancer Start:28-Aug-2013 Instruction Type:Provider Instructions for Treatment Name Dates Details How to access health informa tion online Indication:Paronychia, finger Start:21-Mar-2019 Instruction Type:Patient Education How to access health informa tion online - Detail Indication:Paronychia, finger Start:21-Mar-2019 Instruction Type:Patient Education Patient Instructions Indication:Paronychia, finger Start:21-Mar-2019 Instruction Type:Provider Instructions for Treatment How to access health informa tion online Indication:Right shoulder pain Start:27-Dec-2018 Instruction Type:Patient Education How to access health informa tion online - Detail Indication:Right shoulder pain Start:27-Dec-2018 Instruction Type:Patient Education Patient Instructions Indication:Right shoulder pain Start:27-Dec-2018 Instruction Type:Provider Instructions for Treatment How to access health informa tion online Indication:[facility] Start:14-Dec-2018 Instruction Type:Patient Education How to access health informa tion online - Detail Indication:[facility] Start:14-Dec-2018 Instruction Type:Patient Education Patient Instructions Indication:[facility] Start:14-Dec-2018 Instruction Type:Provider Instructions for Treatment How to access health informa tion online Indication:Ventricular tachycardia Start:08-Apr-2018 Instruction Type:Patient Education How to access health informa tion online - Detail Indication:Ventricular tachycardia Start:08-Apr-2018 Instruction Type:Patient Education Patient Instructions Indication:Ventricular tachycardia Start:08-Apr-2018 Instruction Type:Provider Instructions for Treatment How to access health informa tion online Indication:BMI 25.0-25.9,adult Start:04-Apr-2018 Instruction Type:Patient Education How to access health informa tion online - Detail Indication:BMI 25.0-25.9,adult Start:04-Apr-2018 Instruction Type:Patient Education Patient Instructions Indication:BMI 25.0-25.9,adult Start:04-Apr-2018 Instruction Type:Provider Instructions for Treatment How to access health informa tion online Indication:Rib pain on right side Start:18-Jun-2017 Instruction Type:Patient Education How to access health informa tion online - Detail Indication:Rib pain on right side Start:18-Jun-2017 Instruction Type:Patient Education Patient Instructions Indication:Rib pain on right side Start:18-Jun-2017 Instruction Type:Provider Instructions for Treatment How to access health informa tion online Indication:Body mass index (BMI) 24.0-24.9, adult Start:24-Nov-2016 Instruction Type:Patient Education How to access health informa tion online - Detail Indication:Body mass index (BMI) 24.0-24.9, adult Start:24-Nov-2016 Instruction Type:Patient Education Patient Instructions Indication:Body mass index (BMI) 24.0-24.9, adult Start:24-Nov-2016 Instruction Type:Provider Instructions for Treatment cardiovascular counseling Indication:Cardiac dysrhythmia Start:03-Apr-2016 Instruction Type:Provider Instructions for Treatment How to access health informa tion online Indication:Need for prophylactic vaccination and inoculation against influenza Start:03-Apr-2016 Instruction Type:Patient Education How to access health informa tion online - Detail Indication:Need for prophylactic vaccination and inoculation against influenza Start:03-Apr-2016 Instruction Type:Patient Education Patient Instructions Indication:Need for prophylactic vaccination and inoculation against influenza Start:03-Apr-2016 Instruction Type:Provider Instructions for Treatment How to access health informa tion online Indication:Asthma Start:21-May-2014 Instruction Type:Patient Education How to access health informa tion online - Detail Indication:Asthma Start:21-May-2014 Instruction Type:Patient Education Patient Instructions Indication:Asthma Start:21-May-2014 Instruction Type:Provider Instructions for Treatment Patient Instructions Indication:Vaccine for yjiieucssz-cznxayt-zuuuvgftt with poliomyelitis Start:27-Nov-2013 Instruction Type:Provider Instructions for Treatment Patient Instructions Indication:Screening for prostate cancer Start:28-Aug-2013 Instruction Type:Provider Instructions for Treatment Name Dates Details How to access health informa tion online Indication:Nonsmoker Start:01-Dec-2019 Instruction Type:Patient Education How to access health informa tion online - Detail Indication:Nonsmoker Start:01-Dec-2019 Instruction Type:Patient Education Patient Instructions Indication:Nonsmoker Start:01-Dec-2019 Instruction Type:Provider Instructions for Treatment How to access health informa tion online Indication:Paronychia, finger Start:21-Mar-2019 Instruction Type:Patient Education How to access health informa tion online - Detail Indication:Paronychia, finger Start:21-Mar-2019 Instruction Type:Patient Education Patient Instructions Indication:Paronychia, finger Start:21-Mar-2019 Instruction Type:Provider Instructions for Treatment How to access health informa tion online Indication:Right shoulder pain Start:27-Dec-2018 Instruction Type:Patient Education How to access health informa tion online - Detail Indication:Right shoulder pain Start:27-Dec-2018 Instruction Type:Patient Education Patient Instructions Indication:Right shoulder pain Start:27-Dec-2018 Instruction Type:Provider Instructions for Treatment How to access health informa tion online Indication:[facility] Start:14-Dec-2018 Instruction Type:Patient Education How to access health informa tion online - Detail Indication:[facility] Start:14-Dec-2018 Instruction Type:Patient Education Patient Instructions Indication:[facility] Start:14-Dec-2018 Instruction Type:Provider Instructions for Treatment How to access health informa tion online Indication:Ventricular tachycardia Start:08-Apr-2018 Instruction Type:Patient Education How to access health informa tion online - Detail Indication:Ventricular tachycardia Start:08-Apr-2018 Instruction Type:Patient Education Patient Instructions Indication:Ventricular tachycardia Start:08-Apr-2018 Instruction Type:Provider Instructions for Treatment How to access health informa tion online Indication:BMI 25.0-25.9,adult Start:04-Apr-2018 Instruction Type:Patient Education How to access health informa tion online - Detail Indication:BMI 25.0-25.9,adult Start:04-Apr-2018 Instruction Type:Patient Education Patient Instructions Indication:BMI 25.0-25.9,adult Start:04-Apr-2018 Instruction Type:Provider Instructions for Treatment How to access health informa tion online Indication:Rib pain on right side Start:18-Jun-2017 Instruction Type:Patient Education How to access health informa tion online - Detail Indication:Rib pain on right side Start:18-Jun-2017 Instruction Type:Patient Education Patient Instructions Indication:Rib pain on right side Start:18-Jun-2017 Instruction Type:Provider Instructions for Treatment How to access health informa tion online Indication:Body mass index (BMI) 24.0-24.9, adult Start:24-Nov-2016 Instruction Type:Patient Education How to access health informa tion online - Detail Indication:Body mass index (BMI) 24.0-24.9, adult Start:24-Nov-2016 Instruction Type:Patient Education Patient Instructions Indication:Body mass index (BMI) 24.0-24.9, adult Start:24-Nov-2016 Instruction Type:Provider Instructions for Treatment cardiovascular counseling Indication:Cardiac dysrhythmia Start:03-Apr-2016 Instruction Type:Provider Instructions for Treatment How to access health informa tion online Indication:Need for prophylactic vaccination and inoculation against influenza Start:03-Apr-2016 Instruction Type:Patient Education How to access health informa tion online - Detail Indication:Need for prophylactic vaccination and inoculation against influenza Start:03-Apr-2016 Instruction Type:Patient Education Patient Instructions Indication:Need for prophylactic vaccination and inoculation against influenza Start:03-Apr-2016 Instruction Type:Provider Instructions for Treatment How to access health informa tion online Indication:Asthma Start:21-May-2014 Instruction Type:Patient Education How to access health informa tion online - Detail Indication:Asthma Start:21-May-2014 Instruction Type:Patient Education Patient Instructions Indication:Asthma Start:21-May-2014 Instruction Type:Provider Instructions for Treatment Patient Instructions Indication:Vaccine for bysvnvtotq-sfetsmv-aroplflub with poliomyelitis Start:27-Nov-2013 Instruction Type:Provider Instructions for Treatment Patient Instructions Indication:Screening for prostate cancer Start:28-Aug-2013 Instruction Type:Provider Instructions for Treatment Name Dates Details How to access health informa tion online Indication:Nonsmoker Start:01-Dec-2019 Instruction Type:Patient Education How to access health informa tion online - Detail Indication:Nonsmoker Start:01-Dec-2019 Instruction Type:Patient Education Patient Instructions Indication:Nonsmoker Start:01-Dec-2019 Instruction Type:Provider Instructions for Treatment How to access health informa tion online Indication:Paronychia, finger Start:21-Mar-2019 Instruction Type:Patient Education How to access health informa tion online - Detail Indication:Paronychia, finger Start:21-Mar-2019 Instruction Type:Patient Education Patient Instructions Indication:Paronychia, finger Start:21-Mar-2019 Instruction Type:Provider Instructions for Treatment How to access health informa tion online Indication:Right shoulder pain Start:27-Dec-2018 Instruction Type:Patient Education How to access health informa tion online - Detail Indication:Right shoulder pain Start:27-Dec-2018 Instruction Type:Patient Education Patient Instructions Indication:Right shoulder pain Start:27-Dec-2018 Instruction Type:Provider Instructions for Treatment How to access health informa tion online Indication:[facility] Start:14-Dec-2018 Instruction Type:Patient Education How to access health informa tion online - Detail Indication:[facility] Start:14-Dec-2018 Instruction Type:Patient Education Patient Instructions Indication:[facility] Start:14-Dec-2018 Instruction Type:Provider Instructions for Treatment How to access health informa tion online Indication:Ventricular tachycardia Start:08-Apr-2018 Instruction Type:Patient Education How to access health informa tion online - Detail Indication:Ventricular tachycardia Start:08-Apr-2018 Instruction Type:Patient Education Patient Instructions Indication:Ventricular tachycardia Start:08-Apr-2018 Instruction Type:Provider Instructions for Treatment How to access health informa tion online Indication:BMI 25.0-25.9,adult Start:04-Apr-2018 Instruction Type:Patient Education How to access health informa tion online - Detail Indication:BMI 25.0-25.9,adult Start:04-Apr-2018 Instruction Type:Patient Education Patient Instructions Indication:BMI 25.0-25.9,adult Start:04-Apr-2018 Instruction Type:Provider Instructions for Treatment How to access health informa tion online Indication:Rib pain on right side Start:18-Jun-2017 Instruction Type:Patient Education How to access health informa tion online - Detail Indication:Rib pain on right side Start:18-Jun-2017 Instruction Type:Patient Education Patient Instructions Indication:Rib pain on right side Start:18-Jun-2017 Instruction Type:Provider Instructions for Treatment How to access health informa tion online Indication:Body mass index (BMI) 24.0-24.9, adult Start:24-Nov-2016 Instruction Type:Patient Education How to access health informa tion online - Detail Indication:Body mass index (BMI) 24.0-24.9, adult Start:24-Nov-2016 Instruction Type:Patient Education Patient Instructions Indication:Body mass index (BMI) 24.0-24.9, adult Start:24-Nov-2016 Instruction Type:Provider Instructions for Treatment cardiovascular counseling Indication:Cardiac dysrhythmia Start:03-Apr-2016 Instruction Type:Provider Instructions for Treatment How to access health informa tion online Indication:Need for prophylactic vaccination and inoculation against influenza Start:03-Apr-2016 Instruction Type:Patient Education How to access health informa tion online - Detail Indication:Need for prophylactic vaccination and inoculation against influenza Start:03-Apr-2016 Instruction Type:Patient Education Patient Instructions Indication:Need for prophylactic vaccination and inoculation against influenza Start:03-Apr-2016 Instruction Type:Provider Instructions for Treatment How to access health informa tion online Indication:Asthma Start:21-May-2014 Instruction Type:Patient Education How to access health informa tion online - Detail Indication:Asthma Start:21-May-2014 Instruction Type:Patient Education Patient Instructions Indication:Asthma Start:21-May-2014 Instruction Type:Provider Instructions for Treatment Patient Instructions Indication:Vaccine for lxcwkeebwv-sljmrxv-xulgpphzv with poliomyelitis Start:27-Nov-2013 Instruction Type:Provider Instructions for Treatment Patient Instructions Indication:Screening for prostate cancer Start:28-Aug-2013 Instruction Type:Provider Instructions for Treatment Name Dates Details How to access health informa tion online Indication:[facility] Start:06-Mar-2020 Instruction Type:Patient Education How to access health informa tion online - Detail Indication:[facility] Start:06-Mar-2020 Instruction Type:Patient Education Patient Instructions Indication:[facility] Start:06-Mar-2020 Instruction Type:Provider Instructions for Treatment How to access health informa tion online Indication:Nonsmoker Start:01-Dec-2019 Instruction Type:Patient Education How to access health informa tion online - Detail Indication:Nonsmoker Start:01-Dec-2019 Instruction Type:Patient Education Patient Instructions Indication:Nonsmoker Start:01-Dec-2019 Instruction Type:Provider Instructions for Treatment How to access health informa tion online Indication:Paronychia, finger Start:21-Mar-2019 Instruction Type:Patient Education How to access health informa tion online - Detail Indication:Paronychia, finger Start:21-Mar-2019 Instruction Type:Patient Education Patient Instructions Indication:Paronychia, finger Start:21-Mar-2019 Instruction Type:Provider Instructions for Treatment How to access health informa tion online Indication:Right shoulder pain Start:27-Dec-2018 Instruction Type:Patient Education How to access health informa tion online - Detail Indication:Right shoulder pain Start:27-Dec-2018 Instruction Type:Patient Education Patient Instructions Indication:Right shoulder pain Start:27-Dec-2018 Instruction Type:Provider Instructions for Treatment How to access health informa tion online Indication:[facility] Start:14-Dec-2018 Instruction Type:Patient Education How to access health informa tion online - Detail Indication:[facility] Start:14-Dec-2018 Instruction Type:Patient Education Patient Instructions Indication:[facility] Start:14-Dec-2018 Instruction Type:Provider Instructions for Treatment How to access health informa tion online Indication:Ventricular tachycardia Start:08-Apr-2018 Instruction Type:Patient Education How to access health informa tion online - Detail Indication:Ventricular tachycardia Start:08-Apr-2018 Instruction Type:Patient Education Patient Instructions Indication:Ventricular tachycardia Start:08-Apr-2018 Instruction Type:Provider Instructions for Treatment How to access health informa tion online Indication:BMI 25.0-25.9,adult Start:04-Apr-2018 Instruction Type:Patient Education How to access health informa tion online - Detail Indication:BMI 25.0-25.9,adult Start:04-Apr-2018 Instruction Type:Patient Education Patient Instructions Indication:BMI 25.0-25.9,adult Start:04-Apr-2018 Instruction Type:Provider Instructions for Treatment How to access health informa tion online Indication:Rib pain on right side Start:18-Jun-2017 Instruction Type:Patient Education How to access health informa tion online - Detail Indication:Rib pain on right side Start:18-Jun-2017 Instruction Type:Patient Education Patient Instructions Indication:Rib pain on right side Start:18-Jun-2017 Instruction Type:Provider Instructions for Treatment How to access health informa tion online Indication:Body mass index (BMI) 24.0-24.9, adult Start:24-Nov-2016 Instruction Type:Patient Education How to access health informa tion online - Detail Indication:Body mass index (BMI) 24.0-24.9, adult Start:24-Nov-2016 Instruction Type:Patient Education Patient Instructions Indication:Body mass index (BMI) 24.0-24.9, adult Start:24-Nov-2016 Instruction Type:Provider Instructions for Treatment cardiovascular counseling Indication:Cardiac dysrhythmia Start:03-Apr-2016 Instruction Type:Provider Instructions for Treatment How to access health informa tion online Indication:Need for prophylactic vaccination and inoculation against influenza Start:03-Apr-2016 Instruction Type:Patient Education How to access health informa tion online - Detail Indication:Need for prophylactic vaccination and inoculation against influenza Start:03-Apr-2016 Instruction Type:Patient Education Patient Instructions Indication:Need for prophylactic vaccination and inoculation against influenza Start:03-Apr-2016 Instruction Type:Provider Instructions for Treatment How to access health informa tion online Indication:Asthma Start:21-May-2014 Instruction Type:Patient Education How to access health informa tion online - Detail Indication:Asthma Start:21-May-2014 Instruction Type:Patient Education Patient Instructions Indication:Asthma Start:21-May-2014 Instruction Type:Provider Instructions for Treatment Patient Instructions Indication:Vaccine for pgmvbanhmz-zjrihaq-igdfywyjy with poliomyelitis Start:27-Nov-2013 Instruction Type:Provider Instructions for Treatment Patient Instructions Indication:Screening for prostate cancer Start:28-Aug-2013 Instruction Type:Provider Instructions for Treatment Name Dates Details How to access health informa tion online Indication:[facility] Start:06-Mar-2020 Instruction Type:Patient Education How to access health informa tion online - Detail Indication:[facility] Start:06-Mar-2020 Instruction Type:Patient Education Patient Instructions Indication:[facility] Start:06-Mar-2020 Instruction Type:Provider Instructions for Treatment How to access health informa tion online Indication:Nonsmoker Start:01-Dec-2019 Instruction Type:Patient Education How to access health informa tion online - Detail Indication:Nonsmoker Start:01-Dec-2019 Instruction Type:Patient Education Patient Instructions Indication:Nonsmoker Start:01-Dec-2019 Instruction Type:Provider Instructions for Treatment How to access health informa tion online Indication:Paronychia, finger Start:21-Mar-2019 Instruction Type:Patient Education How to access health informa tion online - Detail Indication:Paronychia, finger Start:21-Mar-2019 Instruction Type:Patient Education Patient Instructions Indication:Paronychia, finger Start:21-Mar-2019 Instruction Type:Provider Instructions for Treatment How to access health informa tion online Indication:Right shoulder pain Start:27-Dec-2018 Instruction Type:Patient Education How to access health informa tion online - Detail Indication:Right shoulder pain Start:27-Dec-2018 Instruction Type:Patient Education Patient Instructions Indication:Right shoulder pain Start:27-Dec-2018 Instruction Type:Provider Instructions for Treatment How to access health informa tion online Indication:[facility] Start:14-Dec-2018 Instruction Type:Patient Education How to access health informa tion online - Detail Indication:[facility] Start:14-Dec-2018 Instruction Type:Patient Education Patient Instructions Indication:[facility] Start:14-Dec-2018 Instruction Type:Provider Instructions for Treatment How to access health informa tion online Indication:Ventricular tachycardia Start:08-Apr-2018 Instruction Type:Patient Education How to access health informa tion online - Detail Indication:Ventricular tachycardia Start:08-Apr-2018 Instruction Type:Patient Education Patient Instructions Indication:Ventricular tachycardia Start:08-Apr-2018 Instruction Type:Provider Instructions for Treatment How to access health informa tion online Indication:BMI 25.0-25.9,adult Start:04-Apr-2018 Instruction Type:Patient Education How to access health informa tion online - Detail Indication:BMI 25.0-25.9,adult Start:04-Apr-2018 Instruction Type:Patient Education Patient Instructions Indication:BMI 25.0-25.9,adult Start:04-Apr-2018 Instruction Type:Provider Instructions for Treatment How to access health informa tion online Indication:Rib pain on right side Start:18-Jun-2017 Instruction Type:Patient Education How to access health informa tion online - Detail Indication:Rib pain on right side Start:18-Jun-2017 Instruction Type:Patient Education Patient Instructions Indication:Rib pain on right side Start:18-Jun-2017 Instruction Type:Provider Instructions for Treatment How to access health informa tion online Indication:Body mass index (BMI) 24.0-24.9, adult Start:24-Nov-2016 Instruction Type:Patient Education How to access health informa tion online - Detail Indication:Body mass index (BMI) 24.0-24.9, adult Start:24-Nov-2016 Instruction Type:Patient Education Patient Instructions Indication:Body mass index (BMI) 24.0-24.9, adult Start:24-Nov-2016 Instruction Type:Provider Instructions for Treatment cardiovascular counseling Indication:Cardiac dysrhythmia Start:03-Apr-2016 Instruction Type:Provider Instructions for Treatment How to access health informa tion online Indication:Need for prophylactic vaccination and inoculation against influenza Start:03-Apr-2016 Instruction Type:Patient Education How to access health informa tion online - Detail Indication:Need for prophylactic vaccination and inoculation against influenza Start:03-Apr-2016 Instruction Type:Patient Education Patient Instructions Indication:Need for prophylactic vaccination and inoculation against influenza Start:03-Apr-2016 Instruction Type:Provider Instructions for Treatment How to access health informa tion online Indication:Asthma Start:21-May-2014 Instruction Type:Patient Education How to access health informa tion online - Detail Indication:Asthma Start:21-May-2014 Instruction Type:Patient Education Patient Instructions Indication:Asthma Start:21-May-2014 Instruction Type:Provider Instructions for Treatment Patient Instructions Indication:Vaccine for xrbwwawiuf-mkhiosn-preznkphu with poliomyelitis Start:27-Nov-2013 Instruction Type:Provider Instructions for Treatment Patient Instructions Indication:Screening for prostate cancer Start:28-Aug-2013 Instruction Type:Provider Instructions for Treatment Name Dates Details How to access health informa tion online Indication:[facility] Start:06-Mar-2020 Instruction Type:Patient Education How to access health informa tion online - Detail Indication:[facility] Start:06-Mar-2020 Instruction Type:Patient Education Patient Instructions Indication:[facility] Start:06-Mar-2020 Instruction Type:Provider Instructions for Treatment How to access health informa tion online Indication:Nonsmoker Start:01-Dec-2019 Instruction Type:Patient Education How to access health informa tion online - Detail Indication:Nonsmoker Start:01-Dec-2019 Instruction Type:Patient Education Patient Instructions Indication:Nonsmoker Start:01-Dec-2019 Instruction Type:Provider Instructions for Treatment How to access health informa tion online Indication:Paronychia, finger Start:21-Mar-2019 Instruction Type:Patient Education How to access health informa tion online - Detail Indication:Paronychia, finger Start:21-Mar-2019 Instruction Type:Patient Education Patient Instructions Indication:Paronychia, finger Start:21-Mar-2019 Instruction Type:Provider Instructions for Treatment How to access health informa tion online Indication:Right shoulder pain Start:27-Dec-2018 Instruction Type:Patient Education How to access health informa tion online - Detail Indication:Right shoulder pain Start:27-Dec-2018 Instruction Type:Patient Education Patient Instructions Indication:Right shoulder pain Start:27-Dec-2018 Instruction Type:Provider Instructions for Treatment How to access health informa tion online Indication:[facility] Start:14-Dec-2018 Instruction Type:Patient Education How to access health informa tion online - Detail Indication:[facility] Start:14-Dec-2018 Instruction Type:Patient Education Patient Instructions Indication:[facility] Start:14-Dec-2018 Instruction Type:Provider Instructions for Treatment How to access health informa tion online Indication:Ventricular tachycardia Start:08-Apr-2018 Instruction Type:Patient Education How to access health informa tion online - Detail Indication:Ventricular tachycardia Start:08-Apr-2018 Instruction Type:Patient Education Patient Instructions Indication:Ventricular tachycardia Start:08-Apr-2018 Instruction Type:Provider Instructions for Treatment How to access health informa tion online Indication:BMI 25.0-25.9,adult Start:04-Apr-2018 Instruction Type:Patient Education How to access health informa tion online - Detail Indication:BMI 25.0-25.9,adult Start:04-Apr-2018 Instruction Type:Patient Education Patient Instructions Indication:BMI 25.0-25.9,adult Start:04-Apr-2018 Instruction Type:Provider Instructions for Treatment How to access health informa tion online Indication:Rib pain on right side Start:18-Jun-2017 Instruction Type:Patient Education How to access health informa tion online - Detail Indication:Rib pain on right side Start:18-Jun-2017 Instruction Type:Patient Education Patient Instructions Indication:Rib pain on right side Start:18-Jun-2017 Instruction Type:Provider Instructions for Treatment How to access health informa tion online Indication:Body mass index (BMI) 24.0-24.9, adult Start:24-Nov-2016 Instruction Type:Patient Education How to access health informa tion online - Detail Indication:Body mass index (BMI) 24.0-24.9, adult Start:24-Nov-2016 Instruction Type:Patient Education Patient Instructions Indication:Body mass index (BMI) 24.0-24.9, adult Start:24-Nov-2016 Instruction Type:Provider Instructions for Treatment cardiovascular counseling Indication:Cardiac dysrhythmia Start:03-Apr-2016 Instruction Type:Provider Instructions for Treatment How to access health informa tion online Indication:Need for prophylactic vaccination and inoculation against influenza Start:03-Apr-2016 Instruction Type:Patient Education How to access health informa tion online - Detail Indication:Need for prophylactic vaccination and inoculation against influenza Start:03-Apr-2016 Instruction Type:Patient Education Patient Instructions Indication:Need for prophylactic vaccination and inoculation against influenza Start:03-Apr-2016 Instruction Type:Provider Instructions for Treatment How to access health informa tion online Indication:Asthma Start:21-May-2014 Instruction Type:Patient Education How to access health informa tion online - Detail Indication:Asthma Start:21-May-2014 Instruction Type:Patient Education Patient Instructions Indication:Asthma Start:21-May-2014 Instruction Type:Provider Instructions for Treatment Patient Instructions Indication:Vaccine for klamhthofm-gmjgovg-qyzabjcsi with poliomyelitis Start:27-Nov-2013 Instruction Type:Provider Instructions for Treatment Patient Instructions Indication:Screening for prostate cancer Start:28-Aug-2013 Instruction Type:Provider Instructions for Treatment Name Dates Details How to access health informa tion online Indication:[facility] Start:06-Mar-2020 Instruction Type:Patient Education How to access health informa tion online - Detail Indication:[facility] Start:06-Mar-2020 Instruction Type:Patient Education Patient Instructions Indication:[facility] Start:06-Mar-2020 Instruction Type:Provider Instructions for Treatment How to access health informa tion online Indication:Nonsmoker Start:01-Dec-2019 Instruction Type:Patient Education How to access health informa tion online - Detail Indication:Nonsmoker Start:01-Dec-2019 Instruction Type:Patient Education Patient Instructions Indication:Nonsmoker Start:01-Dec-2019 Instruction Type:Provider Instructions for Treatment How to access health informa tion online Indication:Paronychia, finger Start:21-Mar-2019 Instruction Type:Patient Education How to access health informa tion online - Detail Indication:Paronychia, finger Start:21-Mar-2019 Instruction Type:Patient Education Patient Instructions Indication:Paronychia, finger Start:21-Mar-2019 Instruction Type:Provider Instructions for Treatment How to access health informa tion online Indication:Right shoulder pain Start:27-Dec-2018 Instruction Type:Patient Education How to access health informa tion online - Detail Indication:Right shoulder pain Start:27-Dec-2018 Instruction Type:Patient Education Patient Instructions Indication:Right shoulder pain Start:27-Dec-2018 Instruction Type:Provider Instructions for Treatment How to access health informa tion online Indication:[facility] Start:14-Dec-2018 Instruction Type:Patient Education How to access health informa tion online - Detail Indication:[facility] Start:14-Dec-2018 Instruction Type:Patient Education Patient Instructions Indication:[facility] Start:14-Dec-2018 Instruction Type:Provider Instructions for Treatment How to access health informa tion online Indication:Ventricular tachycardia Start:08-Apr-2018 Instruction Type:Patient Education How to access health informa tion online - Detail Indication:Ventricular tachycardia Start:08-Apr-2018 Instruction Type:Patient Education Patient Instructions Indication:Ventricular tachycardia Start:08-Apr-2018 Instruction Type:Provider Instructions for Treatment How to access health informa tion online Indication:BMI 25.0-25.9,adult Start:04-Apr-2018 Instruction Type:Patient Education How to access health informa tion online - Detail Indication:BMI 25.0-25.9,adult Start:04-Apr-2018 Instruction Type:Patient Education Patient Instructions Indication:BMI 25.0-25.9,adult Start:04-Apr-2018 Instruction Type:Provider Instructions for Treatment How to access health informa tion online Indication:Rib pain on right side Start:18-Jun-2017 Instruction Type:Patient Education How to access health informa tion online - Detail Indication:Rib pain on right side Start:18-Jun-2017 Instruction Type:Patient Education Patient Instructions Indication:Rib pain on right side Start:18-Jun-2017 Instruction Type:Provider Instructions for Treatment How to access health informa tion online Indication:Body mass index (BMI) 24.0-24.9, adult Start:24-Nov-2016 Instruction Type:Patient Education How to access health informa tion online - Detail Indication:Body mass index (BMI) 24.0-24.9, adult Start:24-Nov-2016 Instruction Type:Patient Education Patient Instructions Indication:Body mass index (BMI) 24.0-24.9, adult Start:24-Nov-2016 Instruction Type:Provider Instructions for Treatment cardiovascular counseling Indication:Cardiac dysrhythmia Start:03-Apr-2016 Instruction Type:Provider Instructions for Treatment How to access health informa tion online Indication:Need for prophylactic vaccination and inoculation against influenza Start:03-Apr-2016 Instruction Type:Patient Education How to access health informa tion online - Detail Indication:Need for prophylactic vaccination and inoculation against influenza Start:03-Apr-2016 Instruction Type:Patient Education Patient Instructions Indication:Need for prophylactic vaccination and inoculation against influenza Start:03-Apr-2016 Instruction Type:Provider Instructions for Treatment How to access health informa tion online Indication:Asthma Start:21-May-2014 Instruction Type:Patient Education How to access health informa tion online - Detail Indication:Asthma Start:21-May-2014 Instruction Type:Patient Education Patient Instructions Indication:Asthma Start:21-May-2014 Instruction Type:Provider Instructions for Treatment Patient Instructions Indication:Vaccine for zljiuhlltu-tjluilf-[id number] with poliomyelitis Start:27-Nov-2013 Instruction Type:Provider Instructions for Treatment Patient Instructions Indication:Screening for prostate cancer Start:28-Aug-2013 Instruction Type:Provider Instructions for Treatment Name Dates Details How to access health informa tion online Indication:COPD (chronic obstructive pulmonary disease) Start:09-Apr-2020 Instruction Type:Patient Education How to access health informa tion online - Detail Indication:COPD (chronic obstructive pulmonary disease) Start:09-Apr-2020 Instruction Type:Patient Education Patient Instructions Indication:COPD (chronic obstructive pulmonary disease) Start:09-Apr-2020 Instruction Type:Provider Instructions for Treatment How to access health informa tion online Indication:[facility] Start:06-Mar-2020 Instruction Type:Patient Education How to access health informa tion online - Detail Indication:[facility] Start:06-Mar-2020 Instruction Type:Patient Education Patient Instructions Indication:[facility] Start:06-Mar-2020 Instruction Type:Provider Instructions for Treatment How to access health informa tion online Indication:Nonsmoker Start:01-Dec-2019 Instruction Type:Patient Education How to access health informa tion online - Detail Indication:Nonsmoker Start:01-Dec-2019 Instruction Type:Patient Education Patient Instructions Indication:Nonsmoker Start:01-Dec-2019 Instruction Type:Provider Instructions for Treatment How to access health informa tion online Indication:Paronychia, finger Start:21-Mar-2019 Instruction Type:Patient Education How to access health informa tion online - Detail Indication:Paronychia, finger Start:21-Mar-2019 Instruction Type:Patient Education Patient Instructions Indication:Paronychia, finger Start:21-Mar-2019 Instruction Type:Provider Instructions for Treatment How to access health informa tion online Indication:Right shoulder pain Start:27-Dec-2018 Instruction Type:Patient Education How to access health informa tion online - Detail Indication:Right shoulder pain Start:27-Dec-2018 Instruction Type:Patient Education Patient Instructions Indication:Right shoulder pain Start:27-Dec-2018 Instruction Type:Provider Instructions for Treatment How to access health informa tion online Indication:[facility] Start:14-Dec-2018 Instruction Type:Patient Education How to access health informa tion online - Detail Indication:[facility] Start:14-Dec-2018 Instruction Type:Patient Education Patient Instructions Indication:[facility] Start:14-Dec-2018 Instruction Type:Provider Instructions for Treatment How to access health informa tion online Indication:Ventricular tachycardia Start:08-Apr-2018 Instruction Type:Patient Education How to access health informa tion online - Detail Indication:Ventricular tachycardia Start:08-Apr-2018 Instruction Type:Patient Education Patient Instructions Indication:Ventricular tachycardia Start:08-Apr-2018 Instruction Type:Provider Instructions for Treatment How to access health informa tion online Indication:BMI 25.0-25.9,adult Start:04-Apr-2018 Instruction Type:Patient Education How to access health informa tion online - Detail Indication:BMI 25.0-25.9,adult Start:04-Apr-2018 Instruction Type:Patient Education Patient Instructions Indication:BMI 25.0-25.9,adult Start:04-Apr-2018 Instruction Type:Provider Instructions for Treatment How to access health informa tion online Indication:Rib pain on right side Start:18-Jun-2017 Instruction Type:Patient Education How to access health informa tion online - Detail Indication:Rib pain on right side Start:18-Jun-2017 Instruction Type:Patient Education Patient Instructions Indication:Rib pain on right side Start:18-Jun-2017 Instruction Type:Provider Instructions for Treatment How to access health informa tion online Indication:Body mass index (BMI) 24.0-24.9, adult Start:24-Nov-2016 Instruction Type:Patient Education How to access health informa tion online - Detail Indication:Body mass index (BMI) 24.0-24.9, adult Start:24-Nov-2016 Instruction Type:Patient Education Patient Instructions Indication:Body mass index (BMI) 24.0-24.9, adult Start:24-Nov-2016 Instruction Type:Provider Instructions for Treatment cardiovascular counseling Indication:Cardiac dysrhythmia Start:03-Apr-2016 Instruction Type:Provider Instructions for Treatment How to access health informa tion online Indication:Need for prophylactic vaccination and inoculation against influenza Start:03-Apr-2016 Instruction Type:Patient Education How to access health informa tion online - Detail Indication:Need for prophylactic vaccination and inoculation against influenza Start:03-Apr-2016 Instruction Type:Patient Education Patient Instructions Indication:Need for prophylactic vaccination and inoculation against influenza Start:03-Apr-2016 Instruction Type:Provider Instructions for Treatment How to access health informa tion online Indication:Asthma Start:21-May-2014 Instruction Type:Patient Education How to access health informa tion online - Detail Indication:Asthma Start:21-May-2014 Instruction Type:Patient Education Patient Instructions Indication:Asthma Start:21-May-2014 Instruction Type:Provider Instructions for Treatment Patient Instructions Indication:Vaccine for kzhpmthsqt-zkfjwbn-yurtfhlbb with poliomyelitis Start:27-Nov-2013 Instruction Type:Provider Instructions for Treatment Patient Instructions Indication:Screening for prostate cancer Start:28-Aug-2013 Instruction Type:Provider Instructions for Treatment Name Dates Details How to access health informa tion online Indication:COPD (chronic obstructive pulmonary disease) Start:09-Apr-2020 Instruction Type:Patient Education How to access health informa tion online - Detail Indication:COPD (chronic obstructive pulmonary disease) Start:09-Apr-2020 Instruction Type:Patient Education Patient Instructions Indication:COPD (chronic obstructive pulmonary disease) Start:09-Apr-2020 Instruction Type:Provider Instructions for Treatment How to access health informa tion online Indication:[facility] Start:06-Mar-2020 Instruction Type:Patient Education How to access health informa tion online - Detail Indication:[facility] Start:06-Mar-2020 Instruction Type:Patient Education Patient Instructions Indication:[facility] Start:06-Mar-2020 Instruction Type:Provider Instructions for Treatment How to access health informa tion online Indication:Nonsmoker Start:01-Dec-2019 Instruction Type:Patient Education How to access health informa tion online - Detail Indication:Nonsmoker Start:01-Dec-2019 Instruction Type:Patient Education Patient Instructions Indication:Nonsmoker Start:01-Dec-2019 Instruction Type:Provider Instructions for Treatment How to access health informa tion online Indication:Paronychia, finger Start:21-Mar-2019 Instruction Type:Patient Education How to access health informa tion online - Detail Indication:Paronychia, finger Start:21-Mar-2019 Instruction Type:Patient Education Patient Instructions Indication:Paronychia, finger Start:21-Mar-2019 Instruction Type:Provider Instructions for Treatment How to access health informa tion online Indication:Right shoulder pain Start:27-Dec-2018 Instruction Type:Patient Education How to access health informa tion online - Detail Indication:Right shoulder pain Start:27-Dec-2018 Instruction Type:Patient Education Patient Instructions Indication:Right shoulder pain Start:27-Dec-2018 Instruction Type:Provider Instructions for Treatment How to access health informa tion online Indication:[facility] Start:14-Dec-2018 Instruction Type:Patient Education How to access health informa tion online - Detail Indication:[facility] Start:14-Dec-2018 Instruction Type:Patient Education Patient Instructions Indication:[facility] Start:14-Dec-2018 Instruction Type:Provider Instructions for Treatment How to access health informa tion online Indication:Ventricular tachycardia Start:08-Apr-2018 Instruction Type:Patient Education How to access health informa tion online - Detail Indication:Ventricular tachycardia Start:08-Apr-2018 Instruction Type:Patient Education Patient Instructions Indication:Ventricular tachycardia Start:08-Apr-2018 Instruction Type:Provider Instructions for Treatment How to access health informa tion online Indication:BMI 25.0-25.9,adult Start:04-Apr-2018 Instruction Type:Patient Education How to access health informa tion online - Detail Indication:BMI 25.0-25.9,adult Start:04-Apr-2018 Instruction Type:Patient Education Patient Instructions Indication:BMI 25.0-25.9,adult Start:04-Apr-2018 Instruction Type:Provider Instructions for Treatment How to access health informa tion online Indication:Rib pain on right side Start:18-Jun-2017 Instruction Type:Patient Education How to access health informa tion online - Detail Indication:Rib pain on right side Start:18-Jun-2017 Instruction Type:Patient Education Patient Instructions Indication:Rib pain on right side Start:18-Jun-2017 Instruction Type:Provider Instructions for Treatment How to access health informa tion online Indication:Body mass index (BMI) 24.0-24.9, adult Start:24-Nov-2016 Instruction Type:Patient Education How to access health informa tion online - Detail Indication:Body mass index (BMI) 24.0-24.9, adult Start:24-Nov-2016 Instruction Type:Patient Education Patient Instructions Indication:Body mass index (BMI) 24.0-24.9, adult Start:24-Nov-2016 Instruction Type:Provider Instructions for Treatment cardiovascular counseling Indication:Cardiac dysrhythmia Start:03-Apr-2016 Instruction Type:Provider Instructions for Treatment How to access health informa tion online Indication:Need for prophylactic vaccination and inoculation against influenza Start:03-Apr-2016 Instruction Type:Patient Education How to access health informa tion online - Detail Indication:Need for prophylactic vaccination and inoculation against influenza Start:03-Apr-2016 Instruction Type:Patient Education Patient Instructions Indication:Need for prophylactic vaccination and inoculation against influenza Start:03-Apr-2016 Instruction Type:Provider Instructions for Treatment How to access health informa tion online Indication:Asthma Start:21-May-2014 Instruction Type:Patient Education How to access health informa tion online - Detail Indication:Asthma Start:21-May-2014 Instruction Type:Patient Education Patient Instructions Indication:Asthma Start:21-May-2014 Instruction Type:Provider Instructions for Treatment Patient Instructions Indication:Vaccine for uvkdtbtubp-upknxch-xitajayxr with poliomyelitis Start:27-Nov-2013 Instruction Type:Provider Instructions for Treatment Patient Instructions Indication:Screening for prostate cancer Start:28-Aug-2013 Instruction Type:Provider Instructions for Treatment Name Dates Details How to access health informa tion online Indication:COPD (chronic obstructive pulmonary disease) Start:09-Apr-2020 Instruction Type:Patient Education How to access health informa tion online - Detail Indication:COPD (chronic obstructive pulmonary disease) Start:09-Apr-2020 Instruction Type:Patient Education Patient Instructions Indication:COPD (chronic obstructive pulmonary disease) Start:09-Apr-2020 Instruction Type:Provider Instructions for Treatment How to access health informa tion online Indication:[facility] Start:06-Mar-2020 Instruction Type:Patient Education How to access health informa tion online - Detail Indication:[facility] Start:06-Mar-2020 Instruction Type:Patient Education Patient Instructions Indication:[facility] Start:06-Mar-2020 Instruction Type:Provider Instructions for Treatment How to access health informa tion online Indication:Nonsmoker Start:01-Dec-2019 Instruction Type:Patient Education How to access health informa tion online - Detail Indication:Nonsmoker Start:01-Dec-2019 Instruction Type:Patient Education Patient Instructions Indication:Nonsmoker Start:01-Dec-2019 Instruction Type:Provider Instructions for Treatment How to access health informa tion online Indication:Paronychia, finger Start:21-Mar-2019 Instruction Type:Patient Education How to access health informa tion online - Detail Indication:Paronychia, finger Start:21-Mar-2019 Instruction Type:Patient Education Patient Instructions Indication:Paronychia, finger Start:21-Mar-2019 Instruction Type:Provider Instructions for Treatment How to access health informa tion online Indication:Right shoulder pain Start:27-Dec-2018 Instruction Type:Patient Education How to access health informa tion online - Detail Indication:Right shoulder pain Start:27-Dec-2018 Instruction Type:Patient Education Patient Instructions Indication:Right shoulder pain Start:27-Dec-2018 Instruction Type:Provider Instructions for Treatment How to access health informa tion online Indication:[facility] Start:14-Dec-2018 Instruction Type:Patient Education How to access health informa tion online - Detail Indication:[facility] Start:14-Dec-2018 Instruction Type:Patient Education Patient Instructions Indication:[facility] Start:14-Dec-2018 Instruction Type:Provider Instructions for Treatment How to access health informa tion online Indication:Ventricular tachycardia Start:08-Apr-2018 Instruction Type:Patient Education How to access health informa tion online - Detail Indication:Ventricular tachycardia Start:08-Apr-2018 Instruction Type:Patient Education Patient Instructions Indication:Ventricular tachycardia Start:08-Apr-2018 Instruction Type:Provider Instructions for Treatment How to access health informa tion online Indication:BMI 25.0-25.9,adult Start:04-Apr-2018 Instruction Type:Patient Education How to access health informa tion online - Detail Indication:BMI 25.0-25.9,adult Start:04-Apr-2018 Instruction Type:Patient Education Patient Instructions Indication:BMI 25.0-25.9,adult Start:04-Apr-2018 Instruction Type:Provider Instructions for Treatment How to access health informa tion online Indication:Rib pain on right side Start:18-Jun-2017 Instruction Type:Patient Education How to access health informa tion online - Detail Indication:Rib pain on right side Start:18-Jun-2017 Instruction Type:Patient Education Patient Instructions Indication:Rib pain on right side Start:18-Jun-2017 Instruction Type:Provider Instructions for Treatment How to access health informa tion online Indication:Body mass index (BMI) 24.0-24.9, adult Start:24-Nov-2016 Instruction Type:Patient Education How to access health informa tion online - Detail Indication:Body mass index (BMI) 24.0-24.9, adult Start:24-Nov-2016 Instruction Type:Patient Education Patient Instructions Indication:Body mass index (BMI) 24.0-24.9, adult Start:24-Nov-2016 Instruction Type:Provider Instructions for Treatment cardiovascular counseling Indication:Cardiac dysrhythmia Start:03-Apr-2016 Instruction Type:Provider Instructions for Treatment How to access health informa tion online Indication:Need for prophylactic vaccination and inoculation against influenza Start:03-Apr-2016 Instruction Type:Patient Education How to access health informa tion online - Detail Indication:Need for prophylactic vaccination and inoculation against influenza Start:03-Apr-2016 Instruction Type:Patient Education Patient Instructions Indication:Need for prophylactic vaccination and inoculation against influenza Start:03-Apr-2016 Instruction Type:Provider Instructions for Treatment How to access health informa tion online Indication:Asthma Start:21-May-2014 Instruction Type:Patient Education How to access health informa tion online - Detail Indication:Asthma Start:21-May-2014 Instruction Type:Patient Education Patient Instructions Indication:Asthma Start:21-May-2014 Instruction Type:Provider Instructions for Treatment Patient Instructions Indication:Vaccine for cqnequwjak-syimjui-pdmpvcsfy with poliomyelitis Start:27-Nov-2013 Instruction Type:Provider Instructions for Treatment Patient Instructions Indication:Screening for prostate cancer Start:28-Aug-2013 Instruction Type:Provider Instructions for Treatment Name Dates Details How to access health informa tion online Indication:COPD (chronic obstructive pulmonary disease) Start:09-Apr-2020 Instruction Type:Patient Education How to access health informa tion online - Detail Indication:COPD (chronic obstructive pulmonary disease) Start:09-Apr-2020 Instruction Type:Patient Education Patient Instructions Indication:COPD (chronic obstructive pulmonary disease) Start:09-Apr-2020 Instruction Type:Provider Instructions for Treatment How to access health informa tion online Indication:[facility] Start:06-Mar-2020 Instruction Type:Patient Education How to access health informa tion online - Detail Indication:[facility] Start:06-Mar-2020 Instruction Type:Patient Education Patient Instructions Indication:[facility] Start:06-Mar-2020 Instruction Type:Provider Instructions for Treatment How to access health informa tion online Indication:Nonsmoker Start:01-Dec-2019 Instruction Type:Patient Education How to access health informa tion online - Detail Indication:Nonsmoker Start:01-Dec-2019 Instruction Type:Patient Education Patient Instructions Indication:Nonsmoker Start:01-Dec-2019 Instruction Type:Provider Instructions for Treatment How to access health informa tion online Indication:Paronychia, finger Start:21-Mar-2019 Instruction Type:Patient Education How to access health informa tion online - Detail Indication:Paronychia, finger Start:21-Mar-2019 Instruction Type:Patient Education Patient Instructions Indication:Paronychia, finger Start:21-Mar-2019 Instruction Type:Provider Instructions for Treatment How to access health informa tion online Indication:Right shoulder pain Start:27-Dec-2018 Instruction Type:Patient Education How to access health informa tion online - Detail Indication:Right shoulder pain Start:27-Dec-2018 Instruction Type:Patient Education Patient Instructions Indication:Right shoulder pain Start:27-Dec-2018 Instruction Type:Provider Instructions for Treatment How to access health informa tion online Indication:[facility] Start:14-Dec-2018 Instruction Type:Patient Education How to access health informa tion online - Detail Indication:[facility] Start:14-Dec-2018 Instruction Type:Patient Education Patient Instructions Indication:[facility] Start:14-Dec-2018 Instruction Type:Provider Instructions for Treatment How to access health informa tion online Indication:Ventricular tachycardia Start:08-Apr-2018 Instruction Type:Patient Education How to access health informa tion online - Detail Indication:Ventricular tachycardia Start:08-Apr-2018 Instruction Type:Patient Education Patient Instructions Indication:Ventricular tachycardia Start:08-Apr-2018 Instruction Type:Provider Instructions for Treatment How to access health informa tion online Indication:BMI 25.0-25.9,adult Start:04-Apr-2018 Instruction Type:Patient Education How to access health informa tion online - Detail Indication:BMI 25.0-25.9,adult Start:04-Apr-2018 Instruction Type:Patient Education Patient Instructions Indication:BMI 25.0-25.9,adult Start:04-Apr-2018 Instruction Type:Provider Instructions for Treatment How to access health informa tion online Indication:Rib pain on right side Start:18-Jun-2017 Instruction Type:Patient Education How to access health informa tion online - Detail Indication:Rib pain on right side Start:18-Jun-2017 Instruction Type:Patient Education Patient Instructions Indication:Rib pain on right side Start:18-Jun-2017 Instruction Type:Provider Instructions for Treatment How to access health informa tion online Indication:Body mass index (BMI) 24.0-24.9, adult Start:24-Nov-2016 Instruction Type:Patient Education How to access health informa tion online - Detail Indication:Body mass index (BMI) 24.0-24.9, adult Start:24-Nov-2016 Instruction Type:Patient Education Patient Instructions Indication:Body mass index (BMI) 24.0-24.9, adult Start:24-Nov-2016 Instruction Type:Provider Instructions for Treatment cardiovascular counseling Indication:Cardiac dysrhythmia Start:03-Apr-2016 Instruction Type:Provider Instructions for Treatment How to access health informa tion online Indication:Need for prophylactic vaccination and inoculation against influenza Start:03-Apr-2016 Instruction Type:Patient Education How to access health informa tion online - Detail Indication:Need for prophylactic vaccination and inoculation against influenza Start:03-Apr-2016 Instruction Type:Patient Education Patient Instructions Indication:Need for prophylactic vaccination and inoculation against influenza Start:03-Apr-2016 Instruction Type:Provider Instructions for Treatment How to access health informa tion online Indication:Asthma Start:21-May-2014 Instruction Type:Patient Education How to access health informa tion online - Detail Indication:Asthma Start:21-May-2014 Instruction Type:Patient Education Patient Instructions Indication:Asthma Start:21-May-2014 Instruction Type:Provider Instructions for Treatment Patient Instructions Indication:Vaccine for vmcmgfjhtp-xqzdtnh-xqzsiqhki with poliomyelitis Start:27-Nov-2013 Instruction Type:Provider Instructions for Treatment Patient Instructions Indication:Screening for prostate cancer Start:28-Aug-2013 Instruction Type:Provider Instructions for Treatment Name Dates Details How to access health informa tion online Indication:Paronychia, finger Start:21-Mar-2019 Instruction Type:Patient Education How to access health informa tion online - Detail Indication:Paronychia, finger Start:21-Mar-2019 Instruction Type:Patient Education Patient Instructions Indication:Paronychia, finger Start:21-Mar-2019 Instruction Type:Provider Instructions for Treatment How to access health informa tion online Indication:Right shoulder pain Start:27-Dec-2018 Instruction Type:Patient Education How to access health informa tion online - Detail Indication:Right shoulder pain Start:27-Dec-2018 Instruction Type:Patient Education Patient Instructions Indication:Right shoulder pain Start:27-Dec-2018 Instruction Type:Provider Instructions for Treatment How to access health informa tion online Indication:[facility] Start:14-Dec-2018 Instruction Type:Patient Education How to access health informa tion online - Detail Indication:[facility] Start:14-Dec-2018 Instruction Type:Patient Education Patient Instructions Indication:[facility] Start:14-Dec-2018 Instruction Type:Provider Instructions for Treatment How to access health informa tion online Indication:Ventricular tachycardia Start:08-Apr-2018 Instruction Type:Patient Education How to access health informa tion online - Detail Indication:Ventricular tachycardia Start:08-Apr-2018 Instruction Type:Patient Education Patient Instructions Indication:Ventricular tachycardia Start:08-Apr-2018 Instruction Type:Provider Instructions for Treatment How to access health informa tion online Indication:BMI 25.0-25.9,adult Start:04-Apr-2018 Instruction Type:Patient Education How to access health informa tion online - Detail Indication:BMI 25.0-25.9,adult Start:04-Apr-2018 Instruction Type:Patient Education Patient Instructions Indication:BMI 25.0-25.9,adult Start:04-Apr-2018 Instruction Type:Provider Instructions for Treatment How to access health informa tion online Indication:Rib pain on right side Start:18-Jun-2017 Instruction Type:Patient Education How to access health informa tion online - Detail Indication:Rib pain on right side Start:18-Jun-2017 Instruction Type:Patient Education Patient Instructions Indication:Rib pain on right side Start:18-Jun-2017 Instruction Type:Provider Instructions for Treatment How to access health informa tion online Indication:Body mass index (BMI) 24.0-24.9, adult Start:24-Nov-2016 Instruction Type:Patient Education How to access health informa tion online - Detail Indication:Body mass index (BMI) 24.0-24.9, adult Start:24-Nov-2016 Instruction Type:Patient Education Patient Instructions Indication:Body mass index (BMI) 24.0-24.9, adult Start:24-Nov-2016 Instruction Type:Provider Instructions for Treatment cardiovascular counseling Indication:Cardiac dysrhythmia Start:03-Apr-2016 Instruction Type:Provider Instructions for Treatment How to access health informa tion online Indication:Need for prophylactic vaccination and inoculation against influenza Start:03-Apr-2016 Instruction Type:Patient Education How to access health informa tion online - Detail Indication:Need for prophylactic vaccination and inoculation against influenza Start:03-Apr-2016 Instruction Type:Patient Education Patient Instructions Indication:Need for prophylactic vaccination and inoculation against influenza Start:03-Apr-2016 Instruction Type:Provider Instructions for Treatment How to access health informa tion online Indication:Asthma Start:21-May-2014 Instruction Type:Patient Education How to access health informa tion online - Detail Indication:Asthma Start:21-May-2014 Instruction Type:Patient Education Patient Instructions Indication:Asthma Start:21-May-2014 Instruction Type:Provider Instructions for Treatment Patient Instructions Indication:Vaccine for yiaiiktvkp-eollxwo-ezdqelpay with poliomyelitis Start:27-Nov-2013 Instruction Type:Provider Instructions for Treatment Patient Instructions Indication:Screening for prostate cancer Start:28-Aug-2013 Instruction Type:Provider Instructions for Treatment Name Dates Details How to access health informa tion online Indication:[facility] Start:14-Dec-2018 Instruction Type:Patient Education How to access health informa tion online - Detail Indication:[facility] Start:14-Dec-2018 Instruction Type:Patient Education Patient Instructions Indication:[facility] Start:14-Dec-2018 Instruction Type:Provider Instructions for Treatment How to access health informa tion online Indication:Ventricular tachycardia Start:08-Apr-2018 Instruction Type:Patient Education How to access health informa tion online - Detail Indication:Ventricular tachycardia Start:08-Apr-2018 Instruction Type:Patient Education Patient Instructions Indication:Ventricular tachycardia Start:08-Apr-2018 Instruction Type:Provider Instructions for Treatment How to access health informa tion online Indication:BMI 25.0-25.9,adult Start:04-Apr-2018 Instruction Type:Patient Education How to access health informa tion online - Detail Indication:BMI 25.0-25.9,adult Start:04-Apr-2018 Instruction Type:Patient Education Patient Instructions Indication:BMI 25.0-25.9,adult Start:04-Apr-2018 Instruction Type:Provider Instructions for Treatment How to access health informa tion online Indication:Rib pain on right side Start:18-Jun-2017 Instruction Type:Patient Education How to access health informa tion online - Detail Indication:Rib pain on right side Start:18-Jun-2017 Instruction Type:Patient Education Patient Instructions Indication:Rib pain on right side Start:18-Jun-2017 Instruction Type:Provider Instructions for Treatment How to access health informa tion online Indication:Body mass index (BMI) 24.0-24.9, adult Start:24-Nov-2016 Instruction Type:Patient Education How to access health informa tion online - Detail Indication:Body mass index (BMI) 24.0-24.9, adult Start:24-Nov-2016 Instruction Type:Patient Education Patient Instructions Indication:Body mass index (BMI) 24.0-24.9, adult Start:24-Nov-2016 Instruction Type:Provider Instructions for Treatment cardiovascular counseling Indication:Cardiac dysrhythmia Start:03-Apr-2016 Instruction Type:Provider Instructions for Treatment How to access health informa tion online Indication:Need for prophylactic vaccination and inoculation against influenza Start:03-Apr-2016 Instruction Type:Patient Education How to access health informa tion online - Detail Indication:Need for prophylactic vaccination and inoculation against influenza Start:03-Apr-2016 Instruction Type:Patient Education Patient Instructions Indication:Need for prophylactic vaccination and inoculation against influenza Start:03-Apr-2016 Instruction Type:Provider Instructions for Treatment How to access health informa tion online Indication:Asthma Start:21-May-2014 Instruction Type:Patient Education How to access health informa tion online - Detail Indication:Asthma Start:21-May-2014 Instruction Type:Patient Education Patient Instructions Indication:Asthma Start:21-May-2014 Instruction Type:Provider Instructions for Treatment Patient Instructions Indication:Vaccine for lqmzupyxpk-akpndjn-jnoerunvk with poliomyelitis Start:27-Nov-2013 Instruction Type:Provider Instructions for Treatment Patient Instructions Indication:Screening for prostate cancer Start:28-Aug-2013 Instruction Type:Provider Instructions for Treatment Name Dates Details How to access health informa tion online Indication:[facility] Start:14-Dec-2018 Instruction Type:Patient Education How to access health informa tion online - Detail Indication:[facility] Start:14-Dec-2018 Instruction Type:Patient Education Patient Instructions Indication:[facility] Start:14-Dec-2018 Instruction Type:Provider Instructions for Treatment How to access health informa tion online Indication:Ventricular tachycardia Start:08-Apr-2018 Instruction Type:Patient Education How to access health informa tion online - Detail Indication:Ventricular tachycardia Start:08-Apr-2018 Instruction Type:Patient Education Patient Instructions Indication:Ventricular tachycardia Start:08-Apr-2018 Instruction Type:Provider Instructions for Treatment How to access health informa tion online Indication:BMI 25.0-25.9,adult Start:04-Apr-2018 Instruction Type:Patient Education How to access health informa tion online - Detail Indication:BMI 25.0-25.9,adult Start:04-Apr-2018 Instruction Type:Patient Education Patient Instructions Indication:BMI 25.0-25.9,adult Start:04-Apr-2018 Instruction Type:Provider Instructions for Treatment How to access health informa tion online Indication:Rib pain on right side Start:18-Jun-2017 Instruction Type:Patient Education How to access health informa tion online - Detail Indication:Rib pain on right side Start:18-Jun-2017 Instruction Type:Patient Education Patient Instructions Indication:Rib pain on right side Start:18-Jun-2017 Instruction Type:Provider Instructions for Treatment How to access health informa tion online Indication:Body mass index (BMI) 24.0-24.9, adult Start:24-Nov-2016 Instruction Type:Patient Education How to access health informa tion online - Detail Indication:Body mass index (BMI) 24.0-24.9, adult Start:24-Nov-2016 Instruction Type:Patient Education Patient Instructions Indication:Body mass index (BMI) 24.0-24.9, adult Start:24-Nov-2016 Instruction Type:Provider Instructions for Treatment cardiovascular counseling Indication:Cardiac dysrhythmia Start:03-Apr-2016 Instruction Type:Provider Instructions for Treatment How to access health informa tion online Indication:Need for prophylactic vaccination and inoculation against influenza Start:03-Apr-2016 Instruction Type:Patient Education How to access health informa tion online - Detail Indication:Need for prophylactic vaccination and inoculation against influenza Start:03-Apr-2016 Instruction Type:Patient Education Patient Instructions Indication:Need for prophylactic vaccination and inoculation against influenza Start:03-Apr-2016 Instruction Type:Provider Instructions for Treatment How to access health informa tion online Indication:Asthma Start:21-May-2014 Instruction Type:Patient Education How to access health informa tion online - Detail Indication:Asthma Start:21-May-2014 Instruction Type:Patient Education Patient Instructions Indication:Asthma Start:21-May-2014 Instruction Type:Provider Instructions for Treatment Patient Instructions Indication:Vaccine for puydhdrblz-shwvzob-gskmvzcfg with poliomyelitis Start:27-Nov-2013 Instruction Type:Provider Instructions for Treatment Patient Instructions Indication:Screening for prostate cancer Start:28-Aug-2013 Instruction Type:Provider Instructions for Treatment Summary Purpose Advance Directives No Advanced Directives Records Found Name Dates Details Living Will - Effective on . Expiration date unspecified. Scanned Document is available upon request. Effective:19-Apr-2019 Name Dates Details Living Will - Effective on . Expiration date unspecified. Scanned Document is available upon request. Effective:19-Apr-2019 Name Dates Details Living Will - Effective on . Expiration date unspecified. Scanned Document is available upon request. Effective:19-Apr-2019 Name Dates Details Living Will - Effective on . Expiration date unspecified. Scanned Document is available upon request. Effective:19-Apr-2019 Name Dates Details Living Will - Effective on . Expiration date unspecified. Scanned Document is available upon request. Effective:19-Apr-2019 Name Dates Details Living Will - Effective on . Expiration date unspecified. Scanned Document is available upon request. Effective:19-Apr-2019 Name Dates Details Living Will - Effective on . Expiration date unspecified. Scanned Document is available upon request. Effective:19-Apr-2019 Name Dates Details Living Will - Effective on . Expiration date unspecified. Scanned Document is available upon request. Effective:19-Apr-2019 Name Dates Details Living Will - Effective on . Expiration date unspecified. Scanned Document is available upon request. Effective:19-Apr-2019 Name Dates Details Living Will - Effective on . Expiration date unspecified. Scanned Document is available upon request. Effective:19-Apr-2019 Documents on File Type Date Recorded Patient [employer] Expl anation Advance Directives and Livin g Will 03/19/2021 2:33 PM Name Dates Details Living Will - Effective on . Expiration date unspecified. Scanned Document is available upon request. Effective:19-Apr-2019 Immunization Registry [place] - Effective on 01/28/2021. Expiration date unspecified Effective:28-Jan-2021 Name Dates Details Living Will - Effective on . Expiration date unspecified. Scanned Document is available upon request. Effective:19-Apr-2019 Immunization Registry [place] - Effective on 01/28/2021. Expiration date unspecified Effective:28-Jan-2021 Name Dates Details Living Will - Effective on . Expiration date unspecified. Scanned Document is available upon request. Effective:19-Apr-2019 Immunization Registry [place] - Effective on 01/28/2021. Expiration date unspecified Effective:28-Jan-2021 Name Dates Details Living Will - Effective on . Expiration date unspecified. Scanned Document is available upon request. Effective:19-Apr-2019 Immunization Registry [place] - Effective on 01/28/2021. Expiration date unspecified Effective:28-Jan-2021 Name Dates Details Living Will - Effective on . Expiration date unspecified. Scanned Document is available upon request. Effective:19-Apr-2019 Immunization Registry [place] - Effective on 01/28/2021. Expiration date unspecified Effective:28-Jan-2021 Name Dates Details Living Will - Effective on . Expiration date unspecified. Scanned Document is available upon request. Effective:19-Apr-2019 Immunization Registry [place] - Effective on 01/28/2021. Expiration date unspecified Effective:28-Jan-2021 Name Dates Details Living Will - Effective on . Expiration date unspecified. Scanned Document is available upon request. Effective:19-Apr-2019 Immunization Registry [place] - Effective on 01/28/2021. Expiration date unspecified Effective:28-Jan-2021 Name Dates Details Living Will - Effective on . Expiration date unspecified. Scanned Document is available upon request. Effective:19-Apr-2019 Immunization Registry [place] - Effective on 01/28/2021. Expiration date unspecified Effective:28-Jan-2021 Name Dates Details Living Will - Effective on . Expiration date unspecified. Scanned Document is available upon request. Effective:19-Apr-2019 Immunization Registry [place] - Effective on 01/28/2021. Expiration date unspecified Effective:28-Jan-2021 Reason for Referral Specialty Diagnoses / Procedures Referred By Contac t Referred To Contact Rehabilitation Diagnoses Left knee pain, unspecified chronicity Connie Wilson DO [address] [facility] [address] [place] [address] [address] Referral ID Status Reason Start Date Expiration Date V isits Requested Visits Authorized [id number] Pending Review 03/19/2021 03/19/2022 1 1 Chief Complaint and Reason for Visit Chief Complaint HX CAD, RT ARM/SHOUL TRAE PAIN AT REST HX CAD, RT ARM/SHOULDER PAIN AT REST Chief Complaint HX CAD, RT ARM/SHOUL TRAE PAIN AT REST HX CAD, RT ARM/SHOULDER PAIN AT REST 1 YR WITH PFM CHEST PAIN CAD CHEST PAIN CAD Reason for Visit Chest pain, unspecif ied Atherosclerotic heart disease of [place] coronary artery without angina pectoris Premature ventricular contraction Syncope and collapse Paroxysmal ventricular tachycardia Additional Source Comments (unrecognized sect ion and content) No Status Records FoundNo Status Records FoundNo Status Records FoundNo Status Records Found INFORMATION SOURCE (unrecogn ized section and content) DATE CREATED AUTHOR 10/11/2018 [facility] DATE CREATED AUTHOR AUTHOR'S ORGANIZ ATION 04/21/2021 [facility] DATE CREATED AUTHOR AUTHOR'S ORGANIZ ATION 08/01/2021 [facility] DATE CREATED AUTHOR AUTHOR'S ORGANIZ ATION 05/23/2024 [facility] Reason for Visit (unrecogniz ed section and content) Specialty Diagnoses / Procedures Referred By Contac t Referred To Contact Rehabilitation Diagnoses Left knee pain, unspecified chronicity Connie Wilson DO [address] [facility] [address] [place] [address] [address] Referral ID Status Reason Start Date Expiration Date V isits Requested Visits Authorized [id number] Authorized 03/19/2021 03/19/2022 6 199 Care Teams (unrecognized sec tion and content) Rent Collector Relationship Specialty Start Date End Date No, Physician [facility] PCP - General 03/27/21 Rent Collector Relationship Specialty Start Date End Date No, Physician [facility] PCP - General 03/27/21 Goals (unrecognized section and content) Goals may be documented in a n alternate sectionGoals may be documented in an alternate section FOR RECORDS PERTAINING TO PATIENTS WHO ARE OR HAVE BEEN ENROLLED IN A CHEMICAL DEPENDENCY/SUBSTANCEABUSE PROGRAM, SOME INFORMATION MAY BE OMITTED. This clinical summary was aggregated from multiple sources. Caution should be exercised in using it in the provision of clinical care. This summary normalizes information from multiple sources, and as a consequence, information in this document may materially change the coding, format and clinical context of patient data. In addition, data may be omitted in some cases. CLINICAL DECISIONS SHOULD BE BASED ON THE PRIMARY CLINICAL RECORDS. [facility]. provides no warranty or guarantee of the accuracy or completeness of information in this document.
--- NOTE | 2025-02-10 09:02 | EX.ED.DYSGE1 ---
HPI History of Present Illness Chief Complaint: Syncope Detail of Chief Complaint: Near syncope with walking or going up steps Informant: patient Onset/Context/Timing Onset: Today and Yesterday Context: Sudden Onset Timing: Intermittent Quality: Occurs with activity. Location: Lightheadedness Current Severity: Gone Maximum Severity: Moderate Worsened by: Going up steps Relieved by: Remaining still Associated Symptoms Associated Symptoms: None Narrative Narrative: Patient is a 74-year-old male. He was last seen by his wares sorter April 06, 2024. Dr. Erazo's note was reviewed. There is documentation regarding echo obtained April 2010. Stress report performed February 13, 2022. Cardiac catheterization report performed August 05, 2012. He had a coronary angiography CT performed on February 25, 2022. The coronary calcium score was reported to be 0. He apparently has a history of ventricular tachycardia. Part of his assessment and plan was to obtain an EKG which revealed a right bundle branch block. Second assessment was syncope and collapse, chronic. Patient denies chest pressure, tightness heaviness or dyspnea when he becomes lightheaded. He denies nausea, vomiting or diarrhea. He denies black or maroon-colored stools. He denies dysuria, frequency, urgency or hematuria. Denies decreased urine output. Presently patient has no symptoms. Prior similar symptoms: Yes (Based on documentation from April 06, 2024, cardiology office visit note) [facility] Medical History (Updated 02/10/25 @ 13:[address] Juan Manuel Fisher MD) GI bleed COPD (chronic obstructive pulmonary disease) BPH (benign prostatic hyperplasia) Atherosclerotic heart disease of [place] coronary artery without angina pectoris Premature ventricular contraction Syncope and collapse Nonspecific abnormal cardiovascular system function study Abnormal EKG Chest pain Hyperlipidemia Paroxysmal ventricular tachycardia Home Medications ?Medication ?Instructions ?Recorded ?Last Taken ?Type aspirin 81 mg tablet,delayed 81 mg PO QDAY 07/12/17 02/09/25 History release tamsulosin 0.4 mg capsule 0.4 mg PO DAILY 02/21/20 02/09/25 History nitroglycerin 0.4 mg sublingual 0.4 mg sublingual Q5-15M PRN chest 03/24/23 Unknown Rx tablet pain #25 tabs propranolol 60 mg capsule,24 60 mg PO QDAY #90 caps 04/06/24 02/09/25 Rx hr,extended release (Inderal LA) apixaban 5 mg tablet (Eliquis) 5 mg PO BID #60 tabs 02/10/25 Unknown Rx glucosamine sulfate 500 mg tablet 500 mg PO DAILY 02/10/25 02/09/25 History (Glucosamine) Allergy/AdvReac Type Severity Reaction Status Date / Time No Known Allergies Allergy Verified 02/10/25 08:54 Family History Mother CAD (coronary artery disease) Brother CAD (coronary artery disease) Hx of CABG Sister Hypertension Surgical History S/P left inguinal hernia repair History of appendectomy History of tonsillectomy History of back surgery Social History Smoking Status: Never smoker alcohol intake: current substance use type: does not use ROS ROS ED Constitutional Constitutional ED: Denies chills, fever(s), subjective, sweats or weight loss Eyes Eyes: Denies blurry vision or change in vision Cardiovascular Cardiovascular: Reports other Details: Lightheadedness with moderate activity ; Denies chest pain, orthopnea, palpitations, paroxysmal nocturnal dyspnea or racing heartbeat Respiratory/Chest Respiratory/Chest: Denies cough, dyspnea, dyspnea on exertion, orthopnea or paroxysmal nocturnal dyspnea Gastrointestinal Gastrointestinal: Denies abdominal pain, diarrhea, melena, nausea or vomiting Genitourinary Genitourinary ED: Denies dysuria, hematuria or urinary frequency Integumentary Denies rash Neurologic Neurologic: Denies weakness Hematologic/Lymphatic Hematologic/Lymphatic: Reports systems reviewed and no addt'l complaints, except as documented EXAM Physical Exam Const Vital Signs: 02/10/25 08:22 02/10/25 08:52 02/10/25 10:22 Temperature 98.3 F Temperature Source Oral Pulse Rate 59 L 61 Pulse Rate [Lying] Pulse Rate [Sitting (for 1 minute prior to obtaining)] Pulse Rate [Standing (for 1 minute prior to obtaining)] Respiratory Rate 18 16 Respiratory Effort Normal Respiratory Pattern Normal Blood Pressure 142/91 H 112/72 Blood Pressure [Lying] Blood Pressure [Sitting (for 1 minute prior to obtaining)] Blood Pressure [Standing (for 1 minute prior to obtaining)] Blood Pressure Mean 108 85 Blood Pressure Mean [Lying] Blood Pressure Mean [Sitting (for 1 minute prior to obtaining)] Blood Pressure Mean [Standing (for 1 minute prior to obtaining)] Pulse Ox 98 98 Oxygen Delivery Method Room Air Room Air 02/10/25 10:29 02/10/25 12:00 Temperature Temperature Source Pulse Rate 63 Pulse Rate [Lying] 41 L Pulse Rate [Sitting (for 1 minute prior to obtaining)] 55 L Pulse Rate [Standing (for 1 minute prior to obtaining)] 59 L Respiratory Rate 14 Respiratory Effort Respiratory Pattern Blood Pressure 139/104 H Blood Pressure [Lying] 134/79 H Blood Pressure [Sitting (for 1 minute prior to obtaining)] 131/76 H Blood Pressure [Standing (for 1 minute prior to obtaining)] 126/87 H Blood Pressure Mean 115 Blood Pressure Mean [Lying] 97 Blood Pressure Mean [Sitting (for 1 minute prior to obtaining)] 94 Blood Pressure Mean [Standing (for 1 minute prior to obtaining)] 100 Pulse Ox 96 Oxygen Delivery Method Room Air Positive well nourished and well developed General Appearance ED: well developed and NAD; Negative for pallor HEENT Reports moist mucous membranes HEENT Narrative: Head is atraumatic normocephalic. Ears normal. Nares patent. Posterior pharynx is normal Eyes PERRL and EOMs intact bilaterally General Eye ED: Negative for pale conjunctiva or scleral icterus Neck no lymphadenopathy, supple and no JVD Chest Wall inspection of chest normal and palpation of chest normal Resp normal respiratory effort and clear to auscultation bilaterally Cardio regular rate, regular rhythm, S1 normal heart sound, S2 normal heart sound and no murmurs GI normal to inspection, nondistended, normoactive bowel sounds, non-tender, non-distended and no masses; Negative for hepatosplenomegaly Extremity Negative for normal to inspection Extremity Narrative: There are bruises noted anterior right and left leg. 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 General Extremety ED: Negative for edema or tenderness General Extremity: Negative for edema Neuro oriented x3 and CN's II-XII intact bilaterally Sensorium / Orientation: alert Psych mental status grossly normal Skin no rashes or lesions noted, no wounds and skin turgor normal General Skin Exam: Negative for jaundice or pallor MDM MDM MDM Narrative Medical decision making narrative: Monitor reveals atrial flutter with variable block rate of approximately 60. Will obtain EKG to see if there is any ischemic changes or any ectopy as well. Based on cardiology note there is no history of atrial fibrillation. Patient is presently on a baby aspirin. He is on no anticoagulant. Since this is new and not a chronic issue we will add on a TSH and troponin level. Patient was unaware that he was in atrial fibrillation. He is not a candidate for cardioversion. His rate is controlled. History & Record Review Additional record(s) reviewed:: Prior outpatient record and Prior labs Lab Data Attestation: I reviewed the patient's lab results. Lab results narrative: CBC is unremarkable. Electrolyte panel is unremarkable. BUN slightly elevated with BUN/creatinine ratio of approximately 23-1. TSH normal. Troponin is normal. Labs: Laboratory Results - last 24 hr 02/10/25 02/10/25 08:55 12:20 WBC 4.9 RBC 4.49 L Hgb 14.5 Hct 42.1 MCV 93.8 MCH 32.3 H MCHC 34.4 RDW Std Deviation 43.6 RDW Coeff of Michael 12.7 Plt Count 173 MPV 9.5 Sodium 137 Potassium 4.1 Chloride 104 Carbon Dioxide 25.7 Anion Gap 8 BUN 24 H Creatinine 1.08 Estim Creat Clear Calc 62.94 Est GFR (MDRD) Non-Af 72 BUN/Creatinine Ratio 22.6 H Glucose 90 Calcium 9.0 Troponin T High Sens 17 Troponin T Hi Sens 2 Hr 16 TSH 0.726 Second troponin is normal as well with a delta of -1. Plan is discharge to follow-up with Dr. Sen for new onset atrial flutter with variable block. He was placed on Eliquis. EKG Initial EKG: Attestation: I personally reviewed and interpreted this EKG as follows: Interpretation: Atrial Flutter (Rate is 54. Patient has a variable block. [place] 110 ms. QT duration 452 ms. [place] is normal. There is a right bundle branch block. This is old.) Discharge Plan Triage Chief Complaint: Syncope ED Provider: Juan Manuel Fisher Dx/Rx/DC Orders Clinical Impression: New onset atrial flutter, Orthostatic lightheadedness, Hypertension, Prerenal azotemia Instructions: ED Atrial Flutter Prescriptions: New Eliquis 5 mg tablet 5 mg PO BID Qty: 60 0RF No Action aspirin 81 mg tablet,delayed release (DR/EC) 81 mg PO QDAY tamsulosin 0.4 mg capsule 0.4 mg PO DAILY nitroglycerin 0.4 mg tablet, sublingual 0.4 mg SUBLINGUAL Q5-15M PRN (Reason: chest pain) Qty: 25 3RF propranolol [Inderal LA] 60 mg capsule,extended release 24 hr 60 mg PO QDAY Qty: 90 4RF glucosamine sulfate [Glucosamine] 500 mg tablet 500 mg PO DAILY Rx Instructions: administer with a meal Primary Care Provider: Lori Christensen Referrals: Kenny Erazo MD [Med Staff - Active Staff] - As soon as possible Lori Christensen, [Primary Care Provider] - Activity Restrictions/Additional Instructions: Call Dr. Erazo's office Wednesday. Tell the staff you were seen in the ER and need follow-up this coming week. Print Language: [place] Disposition Disposition: Home, Self Care
[2025-02-10 09:13] LABS: Hematocrit 42.1 % (40-54); Hemoglobin 14.5 g/dL (13.0-16.5); Mean Corp Hgb Conc 34.4 g/dL (32-36); Mean Corpuscular Volume 93.8 fL (80-94); Mean Platelet Vol. 9.5 fl (6.2-12.0); Platelet Count 173 K/mm3 (150-450); RBC Distribution Width CV 12.7 % (11.6-14.6); RBC Distribution Width SD 43.6 fl (35.1-43.9); Red Blood Count 4.49 M/mm3 (4.6-6.2); White Blood Count 4.9 K/mm3 (4.4-11.0)
[2025-02-10 10:07] LABS: Anion Gap 8 (5-15); BUN 24 mg/dL (4-19); BUN/Creat Ratio 22.6 RATIO (10-20); Calcium,Total 9.0 mg/dL (7.6-11.0); Carbon Dioxide 25.7 mmol/L (21.0-32.0); Chloride 104 mmol/L (98-108); Estimated Creatinine Clearance 62.94 ml/min (50-250); Glucose 90 mg/dL (70-99); Potassium 4.1 mmol/L (3.3-5.1)
--- NOTE | 2025-02-10 10:18 | CM.ED ---
Social Work Date of referral: 02/10/25 Reason for referral: No Advanced Care Directives (ACD's) on file Referred by: Social Work Identification Patient provided consent to social work visit. sheep farm worker asked patient to bring in a copy of ACD's either during the next visit or when in the area; can drop off which patient was agreeable to. LIAM Sharp. CAPTAIN WAITER
[2025-02-10 10:22] VITALS: BP 112/72; PULSE 61; RESP 16; O2SAT 98
[2025-02-10 10:29] VITALS: BP 126/87; BP 131/76; BP 134/79; PULSE 41; PULSE 55; PULSE 59
[2025-02-10 10:29] LABS: Troponin T High Sensitivity 17 ng/L (<=22)
[2025-02-10 12:00] VITALS: BP 139/104; PULSE 63; RESP 14; O2SAT 96
[2025-02-10 13:01] LABS: Troponin T High Sens 2 HR 16 ng/L (<=22)
[2025-02-10 13:34] VITALS: BP 139/104; PULSE 63; RESP 16; TEMP 36.8; O2SAT 96
== END 2025-02-10 13:35 | disposition home or self-care (01) ==
PROVIDERS: Emergency Provider Emergency Medicine; PCP Internal Medicine; Visit Provider Emergency Medicine
DX: R55 Syncope and collapse (principal); J44.9 Chronic obstructive pulmonary disease, unspecified; I48.92 Unspecified atrial flutter; R42 Dizziness and giddiness; E78.5 Hyperlipidemia, unspecified; I10 Essential (primary) hypertension; I25.10 Atherosclerotic heart disease of native coronary artery without angina pectoris; R79.89 Other specified abnormal findings of blood chemistry; Z79.82 Long term (current) use of aspirin; N40.0 Benign prostatic hyperplasia without lower urinary tract symptoms; Z79.899 Other long term (current) drug therapy; Z90.49 Acquired absence of other specified parts of digestive tract
CPT/HCPCS: 80048; 84443; 84484; 85027; 93005; 99285; A4216

== ENCOUNTER → 2025-02-21 | Outpatient (CLI) | payer MEDICARE, OTHER, SELFPAY | END | disposition home or self-care (01) | LOC: PSN 07:54 | PROVIDERS: PCP Internal Medicine; Referring Provider Physician Assistant Medical; Visit Provider Physician Assistant Medical | DX: I48.92 Unspecified atrial flutter (principal) | CPT/HCPCS: 93225; 93226 ==

== ENCOUNTER → 2025-03-20 | Outpatient (CLI) | payer MEDICARE, OTHER, SELFPAY ==
--- NOTE | 2025-03-20 06:49 | ECHOD_ITS ---
Reason For Study Reason For Study: Chest Pain Procedure This was a 2D Doppler, Color Flow transthoracic echocardiogram. Myocardial strain analysis was performed in this exam to aid in the assessment of cardiac function. Exam performed in department. Left Ventricle Normal LV size. Mild concentric left ventricular hypertrophy. The left ventricular ejection fraction is 70 %. No regional wall motion abnormalities noted. Right Ventricle Normal RV size. Normal systolic function. Atria Normal left atrium. Normal right atrium. Mitral Valve Normal mitral valve. Mild (1+) eccentric mitral valve insufficiency. Tricuspid Valve Normal tricuspid valve. Mild tricuspid valve insufficiency. Pulmonary artery systolic pressure is 15 mmHg. Aortic Valve Trisinus/trileaflet aortic valve. Mild (1+) eccentric aortic valve insufficiency. Pulmonic Valve Normal pulmonic valve. Great Vessels Normal aortic root. The pulmonary artery is normal size. Inferior vena cava collapse with respiration. Pericardium/Pleural No pericardial effusion. MMode/2D Measurements & Calculations LVIDd: 4.3 cm IVSd: 1.2 cm Ao root diam: 3.4 cm LVIDs: 2.6 cm LVPWd: 1.3 cm RVDd: 3.3 cm FS: 40.5 % LAV(MOD-bp): 52.9 ml LVAd ap4: 23.7 cm2 SV(MOD-sp4): 49.1 ml LAV(MOD-bp) Indexed: 26.5 ml/m2 LVLd ap4: 6.7 cm SI(MOD-sp4): 24.6 ml/m2 LAV(MOD-sp2): 52.3 ml EDV(MOD-sp4): 68.7 ml LAV(MOD-sp4): 54.5 ml EDV(sp4-el): 70.8 ml LVAs ap4: 11.8 cm2 LVLs ap4: 6.1 cm ESV(MOD-sp4): 19.6 ml ESV(sp4-el): 19.5 ml EF(MOD-sp4): 71.4 % EF(sp4-el): 72.5 % SV(sp4-el): 51.4 ml LA A4 area: 19.9 cm2 LA dimension(2D): 4.4 cm RA A4 area: 18.2 cm2 TAPSE: 1.9 cm Time Measurements MV dec time: 0.31 sec Doppler Measurements & Calculations MV E max jonel: 66.0 cm/sec Lat Peak E' Jonel: 10.0 cm/sec Med Peak E' Jonel: 6.2 cm/sec MV A max jonel: 80.4 cm/sec E/E' lat: 6.6 E/E' med: 10.7 MV E/A: 0.82 Ao V2 max: 112.8 cm/sec AI max jonel: 394.3 cm/sec MV dec slope: 213.5 cm/sec2 Ao max P.1 mmHg AI max P.2 mmHg Ao V2 mean: 88.1 cm/sec Ao mean P.3 mmHg AI dec slope: 185.3 cm/sec2 Ao V2 VTI: 30.2 cm AI P1/2t: 623.2 msec AV (velocity ratio): 0.76 LV V1 max: 96.3 cm/sec PA V2 max: 105.4 cm/sec TR max jonel: 177.9 cm/sec LV V1 max P.7 mmHg TR max P.7 mmHg LV V1 mean P.7 mmHg LV V1 mean: 58.1 cm/sec LV V1 VTI: 23.1 cm ECHO/Echo Complete Interpretation Summary Normal LV size. Mild concentric left ventricular hypertrophy. The left ventricular ejection fraction is 70 %. The global longitudinal strain is normal. The global longitudinal strain = -18 % (normal). Ordering Physician: Lisy Reyna Referring Physician: Lori Christensen Performed By: Diya Roberts, RDCS, RVT
--- OUTSIDE RECORDS SUMMARY | 2025-03-20 06:51 | XMS RPT_ITS | CCD ---
Author Organization [facility] Care Team Providers Care Polymer Engineer Name Role Phone Ashish Samuels Unavailable Unavailable Ashish Samuels Unavailable Unavailable Ana Lawlerhleen Unavailable Kevin Messina Unavailable PeabodyIII, Shahab P Unavailable Augusto Parmar Unavailable Gregg Brown Unavailable Manchak, Kimmie Unavailable Unavailable Slarb, Radha Unavailable Unavailable Nataliia Cookie Unavailable Unavailable Fast, Connie A Unavailable Unavailable Unavailable Fast, Connie A Attending Unavailable Fast, Connie A Referring Unavailable Fast, Connie A Consulting Unavailable Fast, Connie A Unavailable Alec Messinae Unavailable PeabodyIII, Shahab P Unavailable Gregg Brown Unavailable Dylon Parmarent Unavailable Manchak, Kimmie Unavailable Unavailable Slarb, Radha Unavailable Unavailable Nuris, Netta Unavailable Cookie William Unavailable Unavailable Unavailable Unavailable IMTIAZ Shore Unavailable Unavailable Pete III, Shahab P Unavailable Cookie William Unavailable Unavailable Manchak, Kimmie Unavailable Unavailable IMTIAZ [...] Connie A Unavailable Dr. Kevin Messina Unavailable Mikaela FERNANDES, Shahab Nix Unavailable Pete LOZOYA MD , Shahab P Unavailable Gregg Brown Unavailable Dr. Augusto Parmar Unavailable Manchak TERRESTRIAL ECOLOGIST, Kimmie Unavailable Unavailable Slaaye CONSTRUCTION FOREMAN, Radha Unavailable Unavailable Nataliia RN, Cookie Unavailable Unavailable Silviano CONSTRUCTION FOREMAN, IMTIAZ Unavailable Unavailable Unavailable Unavailable Mikaela FERNANDES, Shahab P Unavailable Pete LOZOYA MD , Shahab P Unavailable Nuris DO, Netta Unavailable Fast DO, Connie A Unavailable Fermin, Dr. Sandoval Primary Care Provider Dr. Michael Hdz Attending Provider Dr. Michael Hdz Referring Provider Dr. Michael Hdz Other Provider Fermin, Dr. Sandoval Referring Provider Unavailable Unavailable Fermin [facility], Dr. Sandoval Primary Care Provider Phillip FERNANDES, Dr. Zambrano Emergency Provider Dr. Juan Manuel Fisher MD Attending Provider Fermin [facility], Dr. Sandoval Referring Provider Vlad Booker Attending Provider [phone] Vlad Booker Referring Provider [phone] Vlad Booker Referring Unavail able Fast, Connie Primary Care Unavailable Vlad Booker Attending Unavail able Vlad Booker Attending Unavail able Vlad Booker Referring Unavail able Fast, Connie Primary Care Unavailable Vlad Booker Referring Unavail able Fast, Connie Primary Care Unavailable Kacey, [place] Attending Unavailable Fast, Connie Primary Care Unavailable Kacey, Kenny Attending Unavailable Fast, Connie Primary Care Unavailable Fast, Connie Referring Unavailable Kacey, [place] Attending Unavailable Fast, Connie Referring Unavailable Vlad Booker Attending Unavail able Fast, Connie Primary Care Unavailable Kacey, [place] Attending Unavailable Kacey, [place] Referring Unavailable Fast, Connie Primary Care Unavailable Fast, Connie Attending Unavailable Fast, Connie Referring Unavailable Fast, Connie Primary Care Unavailable Fast, Connie Primary Care Unavailable Fisher, Juan Manuel Attending Unavailable Allergies Allergy Classification Reported Allergen(s) Allergy Type Date of Onset Reaction(s) Facility NEGATED: Highlighted row has been ruled out! (1 source) allergy to substance [facility] Work Phone: NEGATED: Highlighted row has been ruled out! (1 source) drug allergy [facility] Work Phone: Medications Current Medications Medication Drug Class(es) Dates Sig (Normalized) Sig (Original) glucosamine sulfate 500 mg oral tablet (3 sources) Start: 02-10-2025 take 1 tablet by mouth once daily Glucosamine Sulfate (Glucosamine) 500 mg tablet Active 500 mg PO DAILY February 10, 2025 12:00am administer with a meal tamsulosin hydrochloride 0.4 mg oral capsule (20 sources) alpha-Adrenergic Adriana Start: 02-21-2020 take 1 capsule by mouth once daily Tamsulosin 0.4 mg capsule Active 0.4 mg PO DAILY February 21, 2020 3:22pm Start: 02-20-2019 End: 02-21-2020 take 2 capsules by mouth once daily Tamsulosin 0.4 mg capsule Discontinued 0.8 mg PO DAILY February 20, 2019 12:00am February 21, 2020 3:22pm Start: 02-20-2019 End: 02-21-2020 take 0.8 mg by mouth once daily Tamsulosin Discontinue d 0.8 MG PO DAILY February 20, 2019 12:00am February 21, 2020 3:22pm Completed/Discontinued Medications Medication Drug Class(es) Dates Sig [...] Dihydropyridine Calcium Channel Adriana Start: 07-12-2017 End: 04-06-2024 take 1 tablet by mouth once daily Amlodipine 5 mg tablet Discontinued 5 mg PO daily 90 4 March 20, 2022 10:10am March 24, 2023 9:10am Start: 09-15-2010 End: 11-24-2016 take 1 tablet [...] Start : 09-May-2007 End : 24-Nov-2007 Inactive apixaban 5 mg oral tablet (5 sources) Factor Xa Inhibitor Start: 02-10-2025 End: 02-12-2025 Apixaban (Eliquis) 5 mg tablet Active 5 mg PO .COMPLEX 180 3 February 12, 2025 4:50pm 5 mg orally twice daily: FAX to [facility] ; Patient ascorbic acid 100 mg chewable tablet (20 sources) End: 11-27-2013 take 1 tablet by mouth once daily VITAMIN C, 100MG (Oral Tablet Chewable) 1 QD for 0 days Refills: 0 Ordered: 27-Nov-2013 Jyoti Gutierrez LPN End : 27-Nov-2013 Inactive aspirin 81 mg delayed release oral tablet (20 sources) Nonsteroidal Anti-inflammatory Drug Start: 09-15-2010 End: 02-14-2025 take 1 tablet by mouth once daily Aspirin 81 mg tablet,delayed release (DR/EC) Discontinued 81 mg PO daily July 12, 2017 1:00am February 14, 2025 2:05pm Start: 09-15-2010 take 1 tablet by zac once daily ASPIRIN 81 MG TABS One tablet by mouth daily ASPIRIN [id number] Monicamatthew Mccord azithromycin 250 mg oral tablet (12 sources) [...] TABS One tablet by mouth daily FAMOTIDINE [id number] Michael Hdz MD finasteride 5 mg oral tablet (20 sources) 5-alpha Reductase Inhibitor Start: 02-20-2019 End: 02-21-2020 take 1 tablet by mouth once daily Finasteride 5 mg tablet Discontinued 5 mg PO DAILY February 20, 2019 12:00am February [...] tablet by mouth twice daily METOPROLOL TARTRATE [id number] Michael Hdz MD metroNIDAZOLE 500 mg oral [...] (20 sources) Nitrate Vasodilator Start: 2010 End: 2022 Nitroglycerin 0.4 mg tablet, sublingual Discontinued 0.4 mg SL Q5M as needed for chest pain 19 09October 10, 2019 8:56am February 19, 2022 10:08am predniSONE 10 mg oral tablet (12 sources) [...] Start : 14-Jul-2021 End : 06-Apr-2022 Inactive 24 hr propranolol hydrochloride 60 mg extended release oral capsule (20 sources) beta-Adrenergic Adriana Start: 03-06-2020 take 1 tablet by mouth once daily Propranolol HCl 60 MG Oral Tablet 1 (one) Tablet qd for 0 days Quantity: 30 {Tablet} Refills: 0 Ordered: 06-Mar-2020 Diana Cisneros MD Start : 06-Mar-2020 Active Start: 07-12-2017 End: 04-06-2024 take 1 capsule by mouth once daily Propranolol (Inderal La) 60 mg capsule,extended release 24 hr Discontinued 60 mg PO daily 90 4 June 16, 2022 11:06am March 24, 2023 9:10am Start: 06-18-2016 take 1 capsule by mo [facility] once daily INDERAL LA 60 MG [id number] One capsule by mouth daily PROPRANOLOL HCL [id number] Michael Hdz MD rofecoxib 25 mg oral [...] Start: 03-29-2023 take 1 tablet by zac once daily tadalafiL 5 mg oral tablet [...] dysph augustus chronic stable-jess nue present regimen Essential hypertension (5 sources) Hypertensive disorder; Translations: [Essential (primary) hypertension] 02-10-2025 Chronic Gastrointestinal hemorrhage (20 sources) Blood in stool; [...] times a nite he sees urologist in [place] so will followup there- try flomax at [...] -has had chemical exposure at work Other lower respiratory disease (4 sources) Dyspnea on exertion; Translations: [Other forms of dyspnea] 02-14-2025 Episodic Other lower respiratory disease (2 sources) Other forms of dyspnea; Translations: [Other forms of dyspnea] Onset: 5 Episodic Other male genital disorders (20 sources) Impotence; Translations: [Male erectile dysfunction, unspecified] 12-14-2018 Chronic Comment on above: hernandez Dotson has followu p with urology -psa stable [...] monitor for now Other non-traumatic joint disorders (5 sources) Pain radiating to right shoulder; Translations: [Pain in right shoulder] 01-27-2022 Episodic Other non-traumatic joint disorders (5 sources) Pain in elbow; Translations: [Pain in right elbow] 01-27-2022 Episodic Other non-traumatic joint disorders (19 sources) Pain in right shoulder; Translations: [Right [...] (20 sources) Vaccination required; Translations: [Vaccine for bqnsrkxdni-oytvhsk-ykz tussis with poliomyelitis] 04-04-2018 Episodic Residual codes; [...] (20 sources) Non-smoker; Translations: [Nonsmoker] 04-01-2021 Episodic Skin and subcutaneous tissue infections (20 [...] it nee ds drained will monitor Syncope (9 sources) Syncope and collapse; Translations: [Syncope and [...] without Urin. Obst (600.00) Unclassified (20 sources) OKVI WELLNESS EXAM 12-14-2018 Unclassified (20 sources) BPH [...] on above: Anoscope performed b y Dr. K Nuris-No internal inflammed/bleeding hemorrhoids. Influenza (20 sources) Influenza [...] 12-12-2008 04-03-2016 Episodic Comment on above: infected Residual codes; unclassified (1 source) Other amnesia; Translations: [Other amnesia] Onset: 05-20-2024 Episodic Unclassified (20 sources) Body mass index (BMI) [...] (1 source) Requires vaccination; Translations: [Vaccine for zcyozlcwdz-fjuolpk-y ertussis with poliomyelitis] 04-04-2018 Unclassified (20 sources) [...] Test Name Value Interpretation Reference Range Facility Cardiology Visit Reporton Cardiology Visit Report [facility] [address] [place] [address] OFFICE VISIT Date of Service: 02/14/25 MR#: [id number] Acct: [id number] Name: ADRIAN TROY Rep #: [id number] : 1950 Provider: ELIZA Wen Age/Sex: 74/M Location: [facility] Status: Signed HPI HPI History of Present Illness Details: This is a 74-year-old white male with a history of premature ventricular complexes but no significant obstructive coronary disease. He did have a coronary CT angiogram performed in January 2022 demonstrating a calcium score of 0 and essentially no coronary disease. He was in the ER on 02/10/2025 for near syncope. He was noted to be in Aflutter. This is new. He was started on Eliquis. Pt notes that he has been having dizziness, but feels that his is currently in a NSR. He does sometimes have chest pain. It is tightness, midsternal. It is not brought on by anything in particular. He is active and does not have issues with activity. 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 Required: No Accompanied by: Self Is patient in pain?: No Allergies No Known Allergies Allergy (Verified 02/14/25 13:30) Medications ???Medication ???Instructions ???Recorded ???Confirmed ???Type tamsulosin 0.4 mg capsule 0.4 mg PO DAILY 02/21/20 02/14/25 History nitroglycerin 0.4 mg sublingual 0.4 mg sublingual Q5-15M PRN chest 03/24/23 02/14/25 Rx tablet pain #25 tabs propranolol 60 mg capsule,24 60 mg PO QDAY #90 caps 04/06/24 Rx hr,extended release (Inderal LA) glucosamine sulfate 500 mg tablet 500 mg PO DAILY 02/10/25 02/14/25 History (Glucosamine) apixaban 5 mg tablet (Eliquis) 5 mg PO .COMPLEX #180 tabs 5 02/14/25 Rx Ejection fraction %: 65 Have you fallen in the past year?: No [facility] Medical History (Updated 02/14/25 @ 13:58 by Vlad KAY, PA) GI bleed COPD (chronic obstructive pulmonary disease) BPH (benign prostatic hyperplasia) Atherosclerotic heart disease of [place] coronary artery without angina pectoris Premature ventricular [...] not use ROS Const Const: Negative for fatigue or weakness Eyes Eyes: Negative for change in vision ENT ENT: Positive for dizziness; Negative for balance problems Cardio Chest Pain: Yes Frequency: weekly Character: tightness Location: mid sternal Duration: hours Palpitations: No Edema: None Resp Respiratory: Positive for SOB with activity; Negative for SOB at rest or SOB orthopnea SOB lying down GI GI: Negative nausea or heartburn Musc Musc: Negative for balance problems Neuro Neuro: Positive for dizziness and near syncope; Negative for lightheadedness, syncope or weakness Endo Endo: Negative for fatigue [...] Clear to Auscultation Cardio Palpation: normal PMI Rhythm: irregularly irregular Heart sounds: S1 normal and S2 normal GI GI: normal to inspection and soft Neuro General: patient alert and patient oriented x3 Skin Skin: no rashes or lesions noted Extremities Pulses: Normal: Right Radial Pulse and Left Radial Pulse Lower Extremity Edema: None: Bilateral Psyc (more content not included)... Normal [facility] Anion gap in Serum or Plasma Ordered By: Juan Manuel Fisher on 02-10-2025 Anion gap [Moles/Vol] 8 mmol/L - [facility] BUN/creatinine ratioOrdered By: Juan Manuel Fisher on 02-10-2025 Urea nitrogen/Creatinine [Mass ratio] 22.6 mg/mg High 04-16 [facility] Basic Metabolic Profile (BMP )on 02-10-2025 BUN/CRE 22.6 RATIO High 04-16 [facility] Comment on above: Performed By: #### L 100.0500, L500.2500 #### [facility] [address] [place], [address] Calcium [Mass/Vol] 9.0 mg/dL Normal 7.6-11.0 [facility] Comment on above: Performed By: #### L 100.0500, L500.2500 #### [facility] [address] [place], [address] Chloride [Moles/Vol] 104 mmol/L Normal 98-108 [facility] Comment on above: Performed By: #### L 100.0500, L500.2500 #### [facility] [address] [place], [address] CO2 [Moles/Vol] 25.7 mmol/L Normal 21.0-32.0 [facility] Comment on above: Performed By: #### L 100.0500, L500.2500 #### [facility] [address] [place], [address] Creatinine [Mass/Vol] 1.08 mg/dL Normal 0.70-1.20 [facility] Comment on above: Performed By: #### L 100.0500, L500.2500 #### [facility] [address] [place] [place], [address] ECRCL 62.94 ml/min Normal 50-250 [facility] Comment on above: Performed By: #### L 100.0500, L500.2500 #### [facility] [address] [place], [address] GAP 8 Normal 5-15 [facility] Comment on above: Performed By: #### L 100.0500, L500.2500 #### [facility] [address] [place], [address] GFR/1.73 sq M.predicted among non-blacks MDRD (S/P/Bld) [Vol rate/Area] 72 mL/min/{1.73_m2} Normal >60 [facility] Comment on above: Result Comment: mL/m in/1.73m2 CKD-EPI Creatinine Equation (2020) Performed By: #### L 100.0500, L500.2500 #### [facility] [address] [place], [address] Glucose [Mass/Vol] 90 mg/dL Normal 70-99 [facility] Comment on above: Performed By: #### L 100.0500, L500.2500 #### [facility] [address] [place], [address] Potassium [Moles/Vol] 4.1 mmol/L Normal 3.3-5.1 [facility] Comment on above: Performed By: #### L 100.0500, L500.2500 #### [facility] [address] [place], [address] Sodium [Moles/Vol] 137 mmol/L Normal 133-145 [facility] Comment on above: Performed By: #### L 100.0500, L500.2500 #### [facility] [address] [place], [address] Urea nitrogen [Mass/Vol] 24 mg/dL High 4-19 [facility] Comment on above: Performed By: #### L 100.0500, L500.2500 #### [facility] [address] [place], [address] CBC-Complete Blood Cnt No Di ffon 02-10-2025 Erythrocyte distribution width (RBC) [Ratio] 12.7 % Normal 11.6-14.6 [facility] Comment on above: Performed By: #### L 100.0500, L500.2500 #### [facility] [address] [place], [address] Hematocrit (Bld) [Volume fraction] 42.1 % Normal 40-54 [facility] Comment on above: Performed By: #### L 100.0500, L500.2500 #### [facility] [address] [place], [address] Hemoglobin (Bld) [Mass/Vol] 14.5 g/dL Normal 13.0-16.5 [facility] Comment on above: Performed By: #### L 100.0500, L500.2500 #### [facility] [address] [place], [address] MCH (RBC) [Entitic mass] 32.3 pg High 27.0-32.0 [facility] Comment on above: Performed By: #### L 100.0500, L500.2500 #### [facility] [address] [place], [address] MCHC (RBC) [Mass/Vol] 34.4 g/dL Normal 32-36 [facility] Comment on above: Performed By: #### L 100.0500, L500.2500 #### [facility] [address] [place], [address] MCV (RBC) [Entitic vol] 93.8 fL Normal 80-94 [facility] Comment on above: Performed By: #### L 100.0500, L500.2500 #### [facility] [address] [place], [address] Platelet mean volume (Bld) [Entitic vol] 9.5 fL Normal 6.2-12.0 [facility] Comment on above: Performed By: #### L 100.0500, L500.2500 #### [facility] [address] [place], [address] Platelets (Bld) [#/Vol] 173 10*3/uL Normal 150-450 [facility] Comment on above: Performed By: #### L 100.0500, L500.2500 #### [facility] [address] [place], [address] RBC (Bld) [#/Vol] 4.49 10*6/uL Low 4.6-6.2 [facility] Comment on above: Performed By: #### L 100.0500, L500.2500 #### [facility] [address] [place], [address] RDW SD 43.6 fl Normal 35.1-43.9 [facility] Comment on above: Performed By: #### L 100.0500, L500.2500 #### [facility] [address] [place], [address] WBC (Bld) [#/Vol] 4.9 10*3/uL Normal 4.4-11.0 [facility] Comment on above: Performed By: #### L 100.0500, L500.2500 #### [facility] [address] [place], [address] Carbon dioxide, total [Moles /volume] in Central venous bloodOrdered By: Juan Manuel Fisher on 02-10-2025 CO2 [Moles/Vol] 25.7 mmol/L 21.0-32.0 [facility] Chloride assayOrdered By: Selin Fisher on 02-10-2025 Chloride [Moles/Vol] 104 mmol/L 98-108 [facility] Emergency Department Summary on 02-10-2025 Emergency Department Summary [facility] Medical Records Department [address] [place] [address] Emergency Department Summary 02/10/25 MR#: [id number] Acct: [id number] Name: ADRIAN TROY Rep #: [id number] : 1950 74 From: Juan Manuel Fisher MD PCP: Dr. Connie Wilson, DO Status:REG ER Location: ED HPI History of Present Illness Chief Complaint: Syncope Detail of Chief Complaint: Near syncope with walking or going up steps Informant: patient Onset/Context/Timing Onset: Today and Yesterday Context: Sudden Onset Timing: Intermittent Quality: Occurs with activity. Location: Lightheadedness Current Severity: Gone Maximum Severity: Moderate Worsened by: Going up steps Relieved by: Remaining still Associated Symptoms Associated Symptoms: None Narrative Narrative: Patient is a 74-year-old male. He was last seen by his president trust company April 06, 2024. Dr. Erazo's note was reviewed. There is documentation regarding echo obtained April 2010. Stress report performed February 13, 2022. Cardiac catheterization report performed August 05, 2012. He had a coronary angiography CT performed on February 25, 2022. The coronary calcium score was reported to be 0. He apparently has a history of ventricular tachycardia. Part of his assessment and plan was to obtain an EKG which revealed a right bundle branch block. Second assessment was syncope and collapse, chronic. Patient denies chest pressure, tightness heaviness or dyspnea when he becomes lightheaded. He denies nausea, vomiting or diarrhea. He denies black or maroon-colored stools. He denies dysuria, frequency, urgency or hematuria. Denies decreased urine output. Presently patient has no symptoms. Prior similar symptoms: Yes (Based on documentation from April 06, 2024, cardiology office visit note) [facility] Medical History (Updated 02/10/25 @ 13:[address] Juan Manuel Fisher MD) GI bleed COPD (chronic obstructive pulmonary disease) BPH (benign prostatic hyperplasia) Atherosclerotic heart disease of [place] coronary artery without angina pectoris Premature ventricular contraction Syncope and collapse Nonspecific abnormal cardiovascular system function study Abnormal EKG Chest pain Hyperlipidemia Paroxysmal ventricular tachycardia Home Medications ???Medication ???Instructions ???Recorded ???Last Taken ???Type aspirin 81 mg tablet,delayed 81 mg PO QDAY 07/12/17 02/09/25 Hi story release tamsulosin 0.4 mg capsule 0.4 mg PO DAILY 02/21/20 02/09/25 History nitroglycerin 0.4 mg sublingual 0.4 mg sublingual Q5-15M PRN chest 03/24/23 Unknown Rx tablet pain #25 tabs propranolol 60 mg capsule,24 60 mg PO QDAY #90 caps 04/06/24 Rx hr,extended release (Inderal LA) apixaban 5 mg tablet (Eliquis) 5 mg PO BID #60 tabs 02/10/25 Unkn own Rx glucosamine sulfate 500 mg tablet 500 mg PO DAILY 02/10/25 02/09/25 History (Glucosamine) Allergy/AdvReac Type Severity Reaction Status Date / Time No Known Allergies Allergy Verified 02/10/25 08:54 Family History Mother CAD (coronary artery disease) Brother CAD (coronary artery disease) Hx of CABG Sister Hypertension Surgical History S/P left inguinal hernia repair History of appendectomy History of tonsillectomy History of back surgery Social History Smoking Status: Never smoker alcohol intake: current substance use type: does not use ROS ROS ED Constitutional Constitutional ED: Denies chills, fever(s), subjective, sweats or weight loss Eyes Eyes: Denies blurry vision or change in vision Cardiovascular Cardiovascular: Reports other Details: Lightheadedness with moderate activity ; Denies chest pain, orthopnea, palpitations, paroxysmal nocturnal dyspnea or racing heartbeat Respiratory/Chest Respiratory/Chest: Denies cough, dyspnea, dyspnea on exertion, orthopnea or paroxysmal nocturnal dyspnea Gastrointestinal Gastrointestinal: Denies abdominal pain, diarrhea, melena, nausea or vomiting Genitourinary Genitourinary ED: Denies dysuria, hematuria or urinary frequency Integumentary Denies rash Neurologic Neurologic: Denies weakness Hematologic/Lymphatic Hematologic/Lymphatic: Reports systems reviewed and no addt'l complaints, except as documented EXAM Physical Exam Const Vital Signs: 02/10/25 08:22 02/10/25 08:52 02/10/25 10:22 Temperature 98.3 F Temperature Source Oral Pulse Rate 59 L 61 Pulse Rate [Lying] Pulse Rate [Sitting (for 1 minute prior to obtaining)] Pulse Rate [Standing (for 1 minute prior to obtaining)] Respiratory Rate 18 16 Respiratory Effort Normal Respiratory Pattern Normal Blood Pressure 142/91 H 112/72 Blood Pres (more content not included)... Normal [facility] Erythrocyte distribution wid th ratioOrdered By: Juan Manuel Fisher on 02-10-2025 Erythrocyte distribution width (RBC) [Ratio] 12.7 % 11.6-14.6 [facility] Erythrocyte distribution wid th standard deviationOrdered By: Juan Manueliwllow Fisher on 02-10-2025 Erythrocyte distribution width (RBC) [Ratio] 43.6 fl 35.1-43.9 [facility] Glomerular filtration rate ( GFR) estimation/1.73 sq m using serum, plasma, or whole bOrdered By: Juan Manuelwillow Fisher on 02-10-2025 GFR/1.73 sq M.predicted among non-blacks MDRD (S/P/Bld) [Vol rate/Area] 72 mL/min/{1.73_m2} >60 [facility] Comment on above: mL/min/1.73m2 CKD-EP I Creatinine Equation (2020) Hematocrit Auto (Bld) [Volum e fraction]Ordered By: Juan Manuel Fisher on 02-10-2025 Hematocrit (Bld) [Volume fraction] 42.1 % 40-54 [facility] Hemoglobin measurementOrdere d By: Juan Manuelwillow Fisher on 02-10-2025 Hemoglobin (Bld) [Mass/Vol] 14.5 g/dL 13.0-16.5 [facility] L501.4021on 02-10-2025 Trop T High Sen 17 ng/L Normal <=22 [facility] Comment on above: Performed By: #### L 501.4021, L501.9520 #### [facility] Laboratory [facility] [address] [place], [address] MCV (mean corpuscular volume ) determinationOrdered By: Juan Manuel Fisher on 02-10-2025 MCV (RBC) [Entitic vol] 93.8 fL 80-94 [facility] Mean corpuscular hemoglobin (MCH) determinationOrdered By: Juan Manuel Fisher on 02-10-2025 MCH (RBC) [Entitic mass] 32.3 pg High 27.0-32.0 [facility] Mean corpuscular hemoglobin concentration (MCHC) determinationOrdered By: Juan Manuel Fisher on 02-10-2025 MCHC (RBC) [Mass/Vol] 34.4 g/dL 32-36 [facility] Mean platelet volume determi nationOrdered By: Juan Manuel Fisher on 02-10-2025 Platelet mean volume (Bld) [Entitic vol] 9.5 fL 6.2-12.0 [facility] Platelet countOrdered By: Selin Fisher on 02-10-2025 Platelets (Bld) [#/Vol] 173 10*3/uL 150-450 [facility] Potassium measurement (mass/ volume)Ordered By: Juan Manuel Fisher on 02-10-2025 Potassium (Unsp spec) [Mass/Vol] 4.1 mmol/L 3.3-5.1 [facility] RBC Auto (Bld) [#/Vol]Ordere d By: Juan Manuel Fisher on 02-10-2025 RBC (Bld) [#/Vol] 4.49 10*6/uL Low 4.6-6.2 [facility] Serum creatinine measurement (mass/volume)Ordered By: Juan Manuel Fisher on 02-10-2025 Creatinine [Mass/Vol] 1.08 mg/dL 0.70-1.20 [facility] Serum glucose measurement (m ass/volume)Ordered By: Juan Manuel Fisher on 02-10-2025 Glucose [Mass/Vol] 90 mg/dL 70-99 [facility] Serum or plasma calcium dinora urement (mass/volume)Ordered By: Juan Manuel Fisher on 02-10-2025 Calcium [Mass/Vol] 9.0 mg/dL 7.6-11.0 [facility] Serum or plasma urea nitroge n measurement (mass/volume)Ordered By: Juan Manuel Fisher on 02-10-2025 Urea nitrogen [Mass/Vol] 24 mg/dL High 4-19 [facility] Sodium levelOrdered By: Juan Manuel Fisher on 02-10-2025 Sodium [Moles/Vol] 137 mmol/L 133-145 [facility] TSH DL <= 0.005 mIU/L QnOrde red By: Juan aMnuel Fisher on 02-10-2025 TSH Qn 0.726 uIU/mL 0.300-4.20 0 [facility] Thyroid Stim Hormone (TSH)on 02-10-2025 TSH 0.726 uIU/mL Normal 0.300-4.20 0 [facility] Comment on above: Performed By: #### L 501.4021, L501.9520 #### [facility] Laboratory [address] [place], [address] Troponin T HS 2 HRon 025 Trop T High Sen 16 ng/L Normal <=22 [facility] Comment on above: Performed By: #### L 499.0042 #### [facility] Laboratory [address] [place], [address] Troponin T HS 4 HRon 025 Trop T High Sen Normal <=22 [facility] Comment on above: Result Comment: NO S PECIMEN COLLECTED. PATIENT DEPARTED ED. Performed By: #### L 499.0043 #### [facility] Laboratory [address] [place], [address] Troponin T.cardiac [Mass/vol ume] in Serum or Plasma by High sensitivity methodOrdered By: Juan Manuel Fisher on 02-10-2025 Troponin T.cardiac High sensitivity method [Mass/Vol] 16 ng/L <22 [facility] Troponin T.cardiac High sensitivity method [Mass/Vol] 17 ng/L <22 [facility] White blood cell (WBC) count Ordered By: Juan Manuel Fisher on 02-10-2025 WBC (Bld) [#/Vol] 4.9 10*3/uL 4.4-11.0 [facility] Brain W/WO Contraston 2023 Brain W/WO Contrast [facility] [address] [place] [address] Brain W/WO Contrast MR#: [id number] Acct: [id number] Name: ARDIAN TROY Rep #: [id number] : 1950 M 73 From: Ras allen MD PCP: Dr. Connie Wilson, DO Status: REG CLI Study: Brain W/WO Contrast Date of Exam: 05/01/24 Exam# [id number] Ordering Dr: [place] [id number] STUDY: MRI BRAIN WITH AND WITHOUT CONTRAST [...] 12:01 EST Reading Location ID and State: [address] [place] [id number] , Service support , CC: Dr. Connie Wilson DO Marketing Information Manager: Signed Normal [facility] CREATININE FINGERSTICKon CREATININE WB < 1.0 Normal 0.70-1.30 [facility] Comment on above: Performed By: #### L 9100.0200 ####[facility] [address] [place], [address] EGFR WB > 60.0000 Normal >60 [facility] Comment on above: Performed By: #### L 9100.0200 ####[facility] [address] [place], [address] Echo Completeon 04-14-2024 Echo Complete [facility] [address] [place] [address] Echo Complete 04/14/24 1334 MR#: [id number] Acct: [id number] Name: ADRIAN TROY Rep #: [id number] : 1950 73 From: Kenny Erazo MD Attending Dr: Dr. Kenny Erazo MD Status: BERE CHRISTOPHER Ordering Dr: Kenny Erazo MD Date: 04/14/24 Location: [facility] Sex: M C Admitted: Reason For Study: [...] Referring Physician: Connie Wilson Performed By: Valerie Cheng RDCS, RVT 04/17/241901 Date Kenny Erazo MD CC: Dr. Kenny Erazo MD; Dr. Connie Wilson DO Date Dictated: 04/14/24 1334 Date Transcribed: 04/17/241901 Marketing Information Manager: Signed Normal [facility] Cardiology Visit Reporton Cardiology Visit Report [facility] [address] [place] [address] OFFICE VISIT Date of Service: 04/06/24 MR#: [id number] Acct: [id number] Name: ADRIAN TROY Rep #: [id number] : 1950 Provider: Dr. Kenny Erazo MD Age/Sex: 73/M Location: [facility] Status: Signed HPI [facility] History of Present Illness Details: This is [...] Intake Visit Reasons: 1 Y FU/PREV PFM Technical Project Coordinator Required: No Accompanied by: Self Is patient [...] you fallen in the past year?: Yes [facility] Medical History GI bleed COPD (chronic obstructive pulmonary disease) BPH (benign prostatic hyperplasia) Atherosclerotic heart disease of [place] coronary artery without angina pectoris Premature ventricular [...] Left srinivas (more content not included)... Normal [facility] CBC, PLATELETS & MANUAL DIFF (31407)Ordered By: Eyeglass Assembler on 03-18-2023 Basophils (Bld) [#/Vol] 0.1 10*3/uL Normal 0.0-0.2 [facility] Work Phone: Comment on above: PATIENT WAS FASTINGP ERFORMED BY: DEBBIE Kaixin00170 [facility] [id number] Basophils/100 WBC (Bld) 1 % Normal [facility]; [facility] Work Phone: Comment on above: PATIENT WAS FASTINGP ERFORMED BY: DEBBIE [email or web address] [facility] [id number] Eosinophils (Bld) [#/Vol] 0.1 10*3/uL Normal 0.0-0.4 [facility]; [facility] Work Phone: Comment on above: PATIENT WAS FASTINGP ERFORMED BY: DEBBIE Alessandra Ejtsww5[address] [facility] [id number] Eosinophils/100 WBC (Bld) 2 % Normal [facility]; [facility] Work Phone: Comment on above: PATIENT WAS FASTINGP ERFORMED BY: DEBBIE [facility] Lfqbvn8762 [facility] [id number] Erythrocyte distribution width (RBC) [Ratio] 12.3 % Normal 11.6-15.4 [facility]; [facility] Work Phone: Comment on above: PATIENT WAS FASTINGP ERFORMED BY: [facility] Rofzvn7751 [address] [facility] [id number] Hematocrit (Bld) [Volume fraction] 46.1 % Normal 37.5-51.0 [facility]; [facility] Work Phone: Comment on above: PATIENT WAS FASTINGP ERFORMED BY: Alessandra Mevrll1520 [facility] [id number] Hemoglobin (Bld) [Mass/Vol] 15.8 g/dL Normal 13.0-17.7 [facility]; [facility] Work Phone: Comment on above: PATIENT WAS FASTINGP ERFORMED BY: [facility] Pvbelp5807 [address] [facility] [id number] Immature granulocytes (Bld) [#/Vol] 0.0 10*3/uL Normal 0.0-0.1 [facility]; [facility] Work Phone: Comment on above: PATIENT WAS FASTINGP ERFORMED BY: Alessandra Mwczec2516 [address] [facility] [id number] Immature granulocytes/100 WBC (Bld) 0 % Normal [facility]; [facility] Work Phone: Comment on above: PATIENT WAS FASTINGP ERFORMED BY: [facility] [facility] [place] [id number] Lymphocytes (Bld) [#/Vol] 0.8 10*3/uL Normal 0.7-3.1 [facility]; [facility] Work Phone: Comment on above: PATIENT WAS FASTINGP ERFORMED BY: [facility]6370 [facility] [id number] Lymphocytes/100 WBC (Bld) 14 % Normal [facility]; [facility] Work Phone: Comment on above: PATIENT WAS FASTINGP ERFORMED BY: [facility]6370 [facility] [id number] MCH (RBC) [Entitic mass] 32.4 pg Normal 26.6-33.0 [facility]; [facility] Work Phone: Comment on above: PATIENT WAS FASTINGP ERFORMED BY: [place] [id number] [facility] [id number] MCHC (RBC) [Mass/Vol] 34.3 g/dL Normal 31.5-35.7 [facility] prehensive Internal Medicine; [facility] Work Phone: Comment on above: PATIENT WAS FASTINGP ERFORMED BY: [facility]6370 [facility] [id number] MCV (RBC) [Entitic vol] 95 fL Normal 79-97 [facility]; [facility] Work Phone: Comment on above: PATIENT WAS FASTINGP ERFORMED BY: [facility]6370 [facility] [id number] Monocytes (Bld) [#/Vol] 0.6 10*3/uL Normal 0.1-0.9 [facility]; [facility] Work Phone: Comment on above: PATIENT WAS FASTINGP ERFORMED BY: [facility]6370 [facility] [id number] Monocytes/100 WBC (Bld) 11 % Normal [facility]; [facility] Work Phone: Comment on above: PATIENT WAS FASTINGP ERFORMED BY: DEBBIE [facility] Qqmfgr0235 [address] RoadDublin [place] [id number] Neutrophils (Bld) [#/Vol] 4.0 10*3/uL Normal 1.4-7.0 [facility]; [facility] Work Phone: Comment on above: PATIENT WAS FASTINGP ERFORMED BY: CB [facility] Jmfqou8838 [address] RoadDublin [place] [id number] Neutrophils/100 WBC (Bld) 72 % Normal [facility]; [facility] Work Phone: Comment on above: PATIENT WAS FASTINGP ERFORMED BY: CB [facility] Lrikzu7091 [address] RoadDublin [place] [id number] Platelets (Bld) [#/Vol] 207 10*3/uL Normal 150-450 [facility]; [facility] Work Phone: Comment on above: PATIENT WAS FASTINGP ERFORMED BY: CB [facility] Zjglnm0379 [address] RoadDublin [place] [id number] RBC (Bld) [#/Vol] 4.87 10*6/uL Normal 4.14-5.80 [facility]; [facility] Work Phone: Comment on above: PATIENT WAS FASTINGP ERFORMED BY: DEBBIE [facility] Irjmma2825 [address] RoadDublin [place] [id number] WBC (Bld) [#/Vol] 5.5 10*3/uL Normal 3.4-10.8 [facility]; [facility] Work Phone: Comment on above: PATIENT WAS FASTINGP ERFORMED BY: CB [facility] Rikwoj3422 [address] RoadDublin [place] [id number] METABOLIC PANEL, COMPREHENSI VE ([id number])Ordered By: Eyeglass Assembler on 03-18-2023 Albumin [Mass/Vol] 4.7 g/dL Normal 3.8-4.8 [facility]; [facility] Work Phone: Comment on above: PATIENT WAS FASTINGP ERFORMED BY: CB [facility] Stdpib6126 [address] RoadDublin [place] [id number] Albumin/Globulin [Mass ratio] 2.5 {ratio} Abnormal 1.2-2.2 [facility]; [facility] Work Phone: Comment on above: PATIENT WAS FASTINGP ERFORMED BY: [facility] Mogagr2256 [address] RoadDublin [place] [id number] ALP [Catalytic activity/Vol] 87 U/L Normal 44-121 [facility]; [facility] Work Phone: Comment on above: PATIENT WAS FASTINGP ERFORMED BY: [facility]6370 [address] RoadDublin [place] [id number] ALT [Catalytic activity/Vol] 15 U/L Normal 0-44 [facility]; [facility] Work Phone: Comment on above: PATIENT WAS FASTINGP ERFORMED BY: Lab[facility]6[address] [place] [id number] AST [Catalytic activity/Vol] 19 U/L Normal 0-40 [facility]; [facility] Work Phone: Comment on above: PATIENT WAS FASTINGP ERFORMED BY: Lab[facility]6[address] [place] [id number] Bilirubin [Mass/Vol] 0.9 mg/dL Normal 0.0-1.2 [facility]; [facility] Work Phone: Comment on above: PATIENT WAS FASTINGP ERFORMED BY: [facility] Icomps5984 [address] RoadDublin [place] [id number] Calcium [Mass/Vol] 9.9 mg/dL Normal 8.6-10.2 [facility]; [facility] Work Phone: Comment on above: PATIENT WAS FASTINGP ERFORMED BY: [facility] Ukrloo5590 [address] RoadDublin [place] [id number] Chloride [Moles/Vol] 99 mmol/L Normal 96-106 [facility]; [facility] Work Phone: Comment on above: PATIENT WAS FASTINGP ERFORMED BY: [facility] Cwpdru7549 [address] RoadDublin [place] [id number] CO2 [Moles/Vol] 29 mmol/L Normal 20-29 Comprehen sive [facility]; [facility] Work Phone: Comment on above: PATIENT WAS FASTINGP ERFORMED BY: DEBBIE Aparicio Aqtgei7058 [facility] [id number] Creatinine [Mass/Vol] 1.17 mg/dL Normal 0.76-1.27 [facility] prehensive Internal [facility]; [facility] Work Phone: Comment on above: PATIENT WAS FASTINGP ERFORMED BY: [facility]6370 [facility] [id number] GFR/1.73 sq M.predicted among non-blacks MDRD (S/P/Bld) [Vol rate/Area] 66 mL/min/{1.73_m2} Normal Comprehensiv e [facility]; [facility] Work Phone: Comment on above: PATIENT WAS FASTINGP ERFORMED BY: [facility]6370 [facility] [id number] Globulin (S) [Mass/Vol] 1.9 g/dL Normal 1.5-4.5 [facility]; [facility] Work Phone: Comment on above: PATIENT WAS FASTINGP ERFORMED BY: [facility] Ynjjem[address] [facility]in [place] [id number] Glucose [Mass/Vol] 95 mg/dL Normal 70-99 [facility]; [facility] Work Phone: Comment on above: PATIENT WAS FASTINGP ERFORMED BY: [facility] Yqitfc[address] [facility] [address]in [place] [id number] Potassium [Moles/Vol] 5.1 mmol/L Normal 3.5-5.2 [facility] prehensive Internal [facility]; [facility] Work Phone: Comment on above: PATIENT WAS FASTINGP ERFORMED BY: [facility] Kaaonj[address] [facility] [facility] [address] [facility]in [place] [id number] Protein [Mass/Vol] 6.6 g/dL Normal 6.0-8.5 Compre hensive [facility]; [facility] Work Phone: Comment on above: PATIENT WAS FASTINGP ERFORMED BY: DEBBIE [facility] Wrbnvo11[address] [facility]in [place] [id number] Sodium [Moles/Vol] 137 mmol/L Normal 134-144 Compre hensive [facility] Medicine; [facility] Work Phone: Comment on above: PATIENT WAS FASTINGP ERFORMED BY: DEBBIE [facility] Wsotfm[address]92 [address] [facility] [place] [id number] Urea nitrogen [Mass/Vol] 21 mg/dL Normal 8-27 [facility]; [facility] Work Phone: Comment on above: PATIENT WAS FASTINGP ERFORMED BY: DEBBIE [facility] Rjmwim6[address] [facility] [place] [id number] Urea nitrogen/Creatinine [Mass ratio] 18 mg/mg Normal 10-24 [facility]; [facility] Work Phone: Comment on above: PATIENT WAS FASTINGP ERFORMED BY: DEBBIE [facility] Zqbogt9390 [address] [facility]in [place] [id number] MARLYN (ANTINUCLEAR ANTIBODY) ( [id number])Ordered By: Eyeglass Assembler on 04-06-2022 Nuclear Ab Ql (S) Positive Abnormal Compreh ensive [facility]; [facility] Work Phone: Comment on above: PATIENT NOT FASTINGP ERFORMED BY: DEBBIE [facility] Applzn1279 [facility] [id number] C-REACTIVE PROTEIN ([id number])Or dered By: Eyeglass Assembler on 04-06-2022 CRP [Mass/Vol] 2 mg/L Normal 0-10 Comprehens vane [facility]; [facility] Work Phone: Comment on above: PATIENT NOT FASTINGP ERFORMED BY: DEBBIE [facility] Firskl0348 [address] [facility] [id number] IMMUNOFIXATION, SERUM ([id number] )Ordered By: Eyeglass Assembler on 04-06-2022 IgA [Mass/Vol] 85 mg/dL Normal 61-437 Comprehens vane [facility]; [facility] Work Phone: Comment on above: PATIENT NOT FASTINGP ERFORMED BY: DEBBIE [facility] Opotdt0403 [address] RoadDublin [place] [id number] IgG [Mass/Vol] 900 mg/dL Normal 603-1613 Comprehens vane [facility]; [facility] Work Phone: Comment on above: PATIENT NOT FASTINGP ERFORMED BY: CB [facility] Fxffdx5213 [address] RoadDublin [place] [id number] IgM [Mass/Vol] 77 mg/dL Normal 15-143 Comprehens vane [facility]; [facility] Work Phone: Comment on above: PATIENT NOT FASTINGP ERFORMED BY: CB [facility] Nafypt1869 [address] RoadDublin [place] [id number] Protein Fractions [Interp] UPEIP Normal [facility]; [facility] Work Phone: Comment on above: No monoclonality det ected. PATIENT NOT FASTINGP ERFORMED BY: [facility] Rgimfi2221 [address] RoadDublin [place] [id number] SED RATE ERYTHROCYTE ([id number]) Ordered By: Eyeglass Assembler on 04-06-2022 ESR (Bld) [Velocity] 2 mm/h Normal 0-30 Comp [facility]; [facility] Work Phone: Comment on above: PATIENT NOT FASTINGP ERFORMED BY: [facility] Egsxuy0246 [address]Dublin [place] [id number] Serum Free Light Chains (838 83)Ordered By: Eyeglass Assembler on 04-06-2022 Immunoglobulin light chains.kappa.free (S) [Mass/Vol] 22.7 mg/L Abnormal 3.3-19.4 [facility]; [facility] Work Phone: Comment on above: PATIENT NOT FASTINGP ERFORMED BY: [facility] Ivixka3665 [address] RoadDublin [place] [id number] Immunoglobulin light chains.lambda.free [Mass/Vol] 11.1 mg/L Normal 5.7-26.3 [facility]; [facility] Work Phone: Comment on above: PATIENT NOT FASTINGP ERFORMED BY: [facility] Fvilbo7824 [address] RoadDublin [place] [id number] Serum Free Light Chains (96519) 2.05 1 Abnormal 0.26-1.65 [facility]; [facility] Work Phone: Comment on above: PATIENT NOT FASTINGP ERFORMED BY: [facility] Ugsbzh4320 [address] ConservisUNC [facility] [id number] dsDNA ANTIBODY by IFA, Crith idia Luciliae, with Reflex to Titer ([id number])Ordered By: Eyeglass Assembler on 04-06-2022 dsDNA ANTIBODY by IFA, Crithidia Luciliae, with Reflex to Titer (92659) Negative Normal [facility]; [facility] Work Phone: Comment on above: PATIENT NOT FASTINGP ERFORMED BY: [facility] Npjkzu6605 [address] ConservisUNC [facility] [id number] urine immunofixation (83726) Ordered By: Eyeglass Assembler on 04-06-2022 Interpretation Immunofixation (U) [Interp] UPEIP Normal [facility]; [facility] Work Phone: Comment on above: No monoclonality det ected. PATIENT NOT FASTINGP ERFORMED BY: [facility] Tdqwtf4480 [facility] GamerQu[facility] Health [id number] PSA (PROSTATE SPECIFIC ANTIG EN) ([id number])Ordered By: Eyeglass Assembler on 03-31-2022 Prostate specific Ag [Mass/Vol] 3.5 ng/mL Normal 0.0-4.0 [facility]; [facility] Work Phone: Comment on above: Ciara ECLIA methodol ogy. .According to the [place] [employer], Serum PSA shoulddecrease and remain [...] malignant disease. PATIENT NOT FASTINGP ERFORMED BY: [facility] Zrkyck5506 [address] [facility]isUNC [facility] [id number] Information: NURSE DRAW Basophil percentageon 2021 Basophil percentage < 0.9 mg/dL 0.70-1.30 [facility] Work Phone: No Panel Informationon 02-25 Bedside Estimated GFR (eGFR) > 60.0000 mL/min >60 [facility] Work Phone: CBC, PLATELETS & MANUAL DIFF ([id number])Ordered By: Eyeglass Assembler on 03-11-2021 Basophils (Bld) [#/Vol] 0.1 10*3/uL Normal 0.0-0.2 [facility]; [facility] Work Phone: Comment on above: PATIENT WAS FASTINGP ERFORMED BY: [employer]70 [address] ConservisUNC [facility] [id number] Basophils/100 WBC (Bld) 1 % Normal [facility]; [facility] Work Phone: Comment on above: PATIENT WAS FASTINGP ERFORMED BY: MD [facility]ider LabNeuroPhage Pharmaceuticals70 [address] ConservisUNC [facility] [id number] Eosinophils (Bld) [#/Vol] 0.1 10*3/uL Normal 0.0-0.4 [facility]; [facility] Work Phone: Comment on above: PATIENT WAS FASTINGP ERFORMED BY: [employer]6370 [address] [facility]isUNC [facility] [id number] Eosinophils/100 WBC (Bld) 2 % Normal [facility]; [facility] Work Phone: Comment on above: PATIENT WAS FASTINGP ERFORMED BY: [employer]Talk6370 [address] [facility]isUNC [facility] [id number] Erythrocyte distribution width (RBC) [Ratio] 12.0 % Normal 11.6-15.4 [facility]; [facility] Work Phone: Comment on above: PATIENT WAS FASTINGP ERFORMED BY: MD Insider LabNeuroPhage Pharmaceuticals70 [facility] [id number] Hematocrit (Bld) [Volume fraction] 45.5 % Normal 37.5-51.0 [facility]; [facility] Work Phone: Comment on above: PATIENT WAS FASTINGP ERFORMED BY: [facility] Zczkmz8389 Jenkins RoadDublin [place] [id number] Hemoglobin (Bld) [Mass/Vol] 15.6 g/dL Normal 13.0-17.7 [facility]; [facility] Work Phone: Comment on above: PATIENT WAS FASTINGP ERFORMED BY: LabCo Hbzkjx9402 [address] RoadDublin [place] [id number] Immature granulocytes (Bld) [#/Vol] 0.0 10*3/uL Normal 0.0-0.1 [facility]; [facility] Work Phone: Comment on above: PATIENT WAS FASTINGP ERFORMED BY: [facility] Sleccw3643 [address] RoadDublin [place] [id number] Immature granulocytes/100 WBC (Bld) 0 % Normal [facility]; [facility] Work Phone: Comment on above: PATIENT WAS FASTINGP ERFORMED BY: [facility]Dublin [place] [id number] Lymphocytes (Bld) [#/Vol] 0.7 10*3/uL Normal 0.7-3.1 [facility]; [facility] Work Phone: Comment on above: PATIENT WAS FASTINGP ERFORMED BY: [facility]Dublin [place] [id number] Lymphocytes/100 WBC (Bld) 14 % Normal [facility]; [facility] Work Phone: Comment on above: PATIENT WAS FASTINGP ERFORMED BY: [facility] Puqkke2922 [address] RoadDublin [place] [id number] MCH (RBC) [Entitic mass] 32.4 pg Normal 26.6-33.0 [facility]; [facility] Work Phone: Comment on above: PATIENT WAS FASTINGP ERFORMED BY: [facility] Jiwrcp3405 [address] RoadDublin [place] [id number] MCHC (RBC) [Mass/Vol] 34.3 g/dL Normal 31.5-35.7 [facility] prehensive Internal Medicine; [facility] Work Phone: Comment on above: PATIENT WAS FASTINGP ERFORMED BY: CB [facility] Omktkk8367 [address] RoadDublin [place] [id number] MCV (RBC) [Entitic vol] 95 fL Normal 79-97 [facility]; [facility] Work Phone: Comment on above: PATIENT WAS FASTINGP ERFORMED BY: CB [facility] Eaqkjb5267 [address] RoadDublin [place] [id number] Monocytes (Bld) [#/Vol] 0.5 10*3/uL Normal 0.1-0.9 [facility]; [facility] Work Phone: Comment on above: PATIENT WAS FASTINGP ERFORMED BY: CB [facility] Lgfdtu4708 [address] RoadDublin [place] [id number] Monocytes/100 WBC (Bld) 9 % Normal [facility]; [facility] Work Phone: Comment on above: PATIENT WAS FASTINGP ERFORMED BY: CB [facility] Maskce3167 [address] RoadDublin [place] [id number] Neutrophils (Bld) [#/Vol] 3.8 10*3/uL Normal 1.4-7.0 [facility]; [facility] Work Phone: Comment on above: PATIENT WAS FASTINGP ERFORMED BY: CB [facility] Rmpkxf0447 [address] RoadDublin [place] [id number] Neutrophils/100 WBC (Bld) 74 % Normal [facility]; [facility] Work Phone: Comment on above: PATIENT WAS FASTINGP ERFORMED BY: CB [facility] Rrlaey3745 [address] RoadDublin [place] [id number] Platelets (Bld) [#/Vol] 227 10*3/uL Normal 150-450 [facility]; [facility] Work Phone: Comment on above: PATIENT WAS FASTINGP ERFORMED BY: CB [facility] Vbcupf2873 [address] RoadDublin [place] [id number] RBC (Bld) [#/Vol] 4.81 10*6/uL Normal 4.14-5.80 [facility] Internal Medicine; [facility] Work Phone: Comment on above: PATIENT WAS FASTINGP ERFORMED BY: DEBBIE [facility] Cclmtj2411 [address] RoadDublin [place] [id number] WBC (Bld) [#/Vol] 5.2 10*3/uL Normal 3.4-10.8 [facility]; [facility] Work Phone: Comment on above: PATIENT WAS FASTINGP ERFORMED BY: CB [facility] Mpoqsf7838 [address] RoadDublin [place] [id number] METABOLIC PANEL, COMPREHENSI VE (28594)Ordered By: Eyeglass Assembler on 03-11-2021 Albumin [Mass/Vol] 4.4 g/dL Normal 3.7-4.7 [facility] Internal Medicine; [facility] Work Phone: Comment on above: PATIENT WAS FASTINGP ERFORMED BY: DEBBIE [facility] Ckizfc8638 [address] RoadDublin [place] [id number] Albumin/Globulin [Mass ratio] 2.0 {ratio} Normal 1.2-2.2 [facility]; [facility] Work Phone: Comment on above: PATIENT WAS FASTINGP ERFORMED BY: DEBBIE [facility] Hsoqkr7339 [address] RoadDublin [place] [id number] ALP [Catalytic activity/Vol] 85 U/L Normal 44-121 [facility]; [facility] Work Phone: Comment on above: Please note refere nce interval change PATIENT WAS FASTINGP ERFORMED BY: CB [facility] Adiory6049 [address] RoadDublin [place] [id number] ALT [Catalytic activity/Vol] 10 U/L Normal 0-44 [facility]; [facility] Work Phone: Comment on above: PATIENT WAS FASTINGP ERFORMED BY: CB [facility] Cslfmf4602 [address]Dublin [place] [id number] AST [Catalytic activity/Vol] 14 U/L Normal 0-40 [facility]; [facility] Work Phone: Comment on above: PATIENT WAS FASTINGP ERFORMED BY: [facility] Wtusmg6210 [address]Dublin [place] [id number] Bilirubin [Mass/Vol] 1.2 mg/dL Normal 0.0-1.2 Comp rehensive [facility]; [facility] Work Phone: Comment on above: PATIENT WAS FASTINGP ERFORMED BY: [facility] Lmrjcq9698 [address] RoadDublin [place] [id number] Calcium [Mass/Vol] 9.2 mg/dL Normal 8.6-10.2 [facility]; [facility] Work Phone: Comment on above: PATIENT WAS FASTINGP ERFORMED BY: [facility] Mamteo1071 [address] RoadDublin [place] [id number] Chloride [Moles/Vol] 102 mmol/L Normal 96-106 [facility] rehensive [facility]; [facility] Work Phone: Comment on above: PATIENT WAS FASTINGP ERFORMED BY: [facility] Oyseiy4346 [address] RoadDublin [place] [id number] CO2 [Moles/Vol] 25 mmol/L Normal 20-29 [facility]; [facility] Work Phone: Comment on above: PATIENT WAS FASTINGP ERFORMED BY: [facility] Mzylfm8899 [address] RoadDublin [place] [id number] Creatinine [Mass/Vol] 1.08 mg/dL Normal 0.76-1.27 [facility] pre[facility] Internal Medicine; [facility] Work Phone: Comment on above: PATIENT WAS FASTINGP ERFORMED BY: [facility] Mtjxxn4128 [address] RoadDublin [place] [id number] GFR/1.73 sq M.predicted among blacks CKD-EPI (S/P/Bld) [Vol rate/Area] 79 mL/min/1.73 Normal [facility]; [facility] Work Phone: Comment on above: [facility] currently reports eGFR in compliance with the current recommendations of the National Kid[employer] Foundation. [facility] will update reporting as new guidelines are published from the NKF-ASN Task force. PATIENT WAS FASTINGP ERFORMED BY: CB [facility] Nlykuj1092 [address] RoadDublin [place] [id number] GFR/1.73 sq M.predicted among non-blacks CKD-EPI (S/P/Bld) [Vol rate/Area] 69 mL/min/1.73 Normal [facility]; [facility] Work Phone: Comment on above: PATIENT WAS FASTINGP ERFORMED BY: CB [facility] Xhlrih0530 [address] RoadDublin [place] [id number] Globulin (S) [Mass/Vol] 2.2 g/dL Normal 1.5-4.5 [facility] Internal Medicine; [facility] Work Phone: Comment on above: PATIENT WAS FASTINGP ERFORMED BY: [facility] Ldmsjp1974 [address] RoadDublin [place] [id number] Glucose [Mass/Vol] 97 mg/dL Normal 65-99 [facility] Internal Medicine; [facility] Work Phone: Comment on above: PATIENT WAS FASTINGP ERFORMED BY: [facility] Bfporb2312 [address] RoadDublin [place] [id number] Potassium [Moles/Vol] 4.6 mmol/L Normal 3.5-5.2 [facility]; [facility] Work Phone: Comment on above: PATIENT WAS FASTINGP ERFORMED BY: [facility] Krbarf1500 [address] RoadDublin [place] [id number] Protein [Mass/Vol] 6.6 g/dL Normal 6.0-8.5 [facility] Internal Medicine; [facility] Work Phone: Comment on above: PATIENT WAS FASTINGP ERFORMED BY: CB [facility] Ppatdg0294 [address] RoadDublin [place] [id number] Sodium [Moles/Vol] 138 mmol/L Normal 134-144 [facility] Internal Medicine; [facility] Work Phone: Comment on above: PATIENT WAS FASTINGP ERFORMED BY: CB [facility] Zqrwez4125 [address] RoadDublin [place] [id number] Urea nitrogen [Mass/Vol] 19 mg/dL Normal 8-27 [facility]; [facility] Work Phone: Comment on above: PATIENT WAS FASTINGP ERFORMED BY: [employer]Talk6370 [facility] [id number] Urea nitrogen/Creatinine [Mass ratio] 18 mg/mg Normal 10-24 [facility]; [facility] Work Phone: Comment on above: PATIENT WAS FASTINGP ERFORMED BY: [employer] ([employer] Bislr)lin6370 [facility] [id number] PSA (PROSTATE SPECIFIC ANTIG EN) (59535)Ordered By: Eyeglass Assembler on 03-11-2021 Prostate specific Ag [Mass/Vol] 3.2 ng/mL Normal 0.0-4.0 [facility]; [facility] Work Phone: Comment on above: yuback ECLIA methodol ogy. .According to the [place] [employer], Serum PSA shoulddecrease and remain [...] malignant disease. PATIENT WAS FASTINGP ERFORMED BY: [employer] Hbkrkl1983 [facility] [id number] Joey 02-18-2021 CNOV Office Visit (JESSAS ) ADRIAN TROY ([id number]) 1950 M Date Time Provider Department 02/18/21 [...] VISIT - SKIN LESION NAME: Adrian Britton [facility] NO.: [id number] DATE OF SERVICE: 02/18/2021 : 1950 REFERRING PHYSICIAN: Connie Wilson DO Adrian is a patient I am following [...] Saray Angel PA-C Referring Provider: CONNIE WILSON [[id number]] Allergies As of Date: 02/18/2021 (No Known [...] Encounter Status:Closed by SARAY ANGEL on 02/18/21 [facility] CNOVzhao 02-13-2021 CNOV Office Visit (GENSWS ) ADRIAN TROY ([id number]) 1950 M Date Time Provider Department 02/13/21 [...] were applied. Patient tolerated procedure well. Erika Forbes RN 02/13/2021 3:15 PM Signed The following instructions are important for you related to your office visit today with the [facility] General Surgeons. Instructions After SKIN [...] you should contact our office immediately @ [phone] and ask to be transferred to the General Surgery department. Referring Provider: SELF [[id number]] Allergies As of Date: 02/13/2021 (No Known Allergies) Date Reviewed: 02/13/2021 Reviewed by: Erika Forbes RN - Fully Assessed Reason for Visit: Follow Up [171] Cmt: remove mass on back Primary Visit Diagnosis:Lesion of subcutaneous tissue [L98.9] Order(s):SURGICAL PATHOLOGY [0865397] Order #: [id number] Prescriptions as of 02/13/2021 - propranolol (INDERAL) [...] to your office visit today with the [facility] General Surgeons. Instructions After SKIN [...] a dr (more content not included)... Normal [facility] SURGICAL PATHOLOGYon 021 SURGICAL PATHOLOGY Specimen originated from [facility] Specimen #: [id number] Submitting Physician: SHAHAB FREEMAN ([id number]) FINAL DIAGNOSIS A. Skin, upper back, excision - Angiolipoma. MARC//christian 02/17/2021 Rissa Tan M.D. (Electronic Signature) SPECIMEN [...] areas of hemorrhage, induration, nodularity, or necrosis. Vulcan[employer] Plate sections from both pieces are submitted in formalin in cassette A1. ALEXY/germaine 02/14/2021 Gross examination performed at [facility], [facility] [place][note 2] [place] [address] Date of Report: 02/17/2021 Date of Procedure: 02/13/2021 Date of Receipt: 02/13/2021 Submitted by: SHAHAB FREEMAN ([id number]) Location: [facility] Diagnostic interpretation performed at [facility], [address] [place] [address]. CLIA Number: [id number] Normal [facility] CNOVon 02-04-2021 CNOV Office Visit (GENSWS ) ADRIAN TROY ([id number]) 1950 M Date Time Provider Department 02/04/21 9:30 AM PETESHAHAB During your visit today, we recorded the following information about you: Temperature Pulse Weight 97.8 degrees 58/minute 78.1 kg Adrian Woodruff CONSTRUCTION FOREMAN 02/04/2021 10:14 AM Signed REVIEW OF SYSTEMS: [...] entered by the nurse and reviewed by me Nursing Notes: Adrian Woodruff LPN 02/04/2021 10:14 AM Signed REVIEW OF SYSTEMS: General: The patient denies fatigue, denies weight loss, denies weight gain, denies feeling hot, and denies feelings of cold (more content not included)... Normal [facility] SPEP ([id number])Ordered By: Syst em Automatic Paint Sprayer Operator on 04-15-2020 Albumin [Mass/Vol] 3.9 g/dL Normal 2.9-4.4 [facility] Internal Medicine Work Phone: Comment on above: PATIENT NOT FASTINGP ERFORMED BY: CB [facility] Qwscmt6560 [facility] [id number] Albumin/Globulin [Mass ratio] 1.4 {ratio} Normal 0.7-1.7 [facility] Work Phone: Comment on above: PATIENT NOT FASTINGP ERFORMED BY: CB [facility] Matorv8760 [facility] [id number] Alpha 1 globulin Elph [Mass/Vol] 0.3 g/dL Normal 0.0-0.4 [facility] Work Phone: Comment on above: PATIENT NOT FASTINGP ERFORMED BY: CB [facility] Ofmrbj8384 [facility] [id number] Alpha 2 globulin Elph [Mass/Vol] 0.7 g/dL Normal 0.4-1.0 [facility] Work Phone: Comment on above: PATIENT NOT FASTINGP ERFORMED BY: CB [facility] Oldpsd3772 [facility] [id number] Beta globulin Elph [Mass/Vol] 0.8 g/dL Normal 0.7-1.3 [facility] Work Phone: Comment on above: PATIENT NOT FASTINGP ERFORMED BY: CB [facility] Eklesq3444 [address] RoadDublin [place] [id number] Gamma globulin Elph [Mass/Vol] 0.9 g/dL Normal 0.4-1.8 [facility] Work Phone: Comment on above: PATIENT NOT FASTINGP ERFORMED BY: CB [facility] Dkpktf2870 [address] RoadDublin [place] [id number] Globulin (S) [Mass/Vol] 2.7 g/dL Normal 2.2-3.9 [facility] Work Phone: Comment on above: PATIENT NOT FASTINGP ERFORMED BY: CB [facility] Mqtzoc8664 [address] RoadDublin [place] [id number] Protein [Mass/Vol] 6.6 g/dL Normal 6.0-8.5 [facility] Internal Medicine Work Phone: Comment on above: PATIENT NOT FASTINGP ERFORMED BY: CB [facility] Trmmlc1757 [address] RoadDublin [place] [id number] Protein.monoclonal Elph [Mass/Vol] Not Observed Normal [facility] Work Phone: Comment on above: PATIENT NOT FASTINGP ERFORMED BY: CB [facility] Cmmhfr1346 [address] RoadDublin [place] [id number] Systemic Lupus Profile (8623 5)Ordered By: Eyeglass Assembler on 04-15-2020 Chromatin Ab Qn <0.2 Normal 0.0-0.9 [facility] Internal Medicine Work Phone: Comment on above: PATIENT NOT FASTINGP ERFORMED BY: CB [facility] Tehacv2065 [address] RoadDublin [place] [id number] DNA double strand Ab Qn (S) 12 {IU/mL} Abnormal 0-9 [facility] Work Phone: Comment on above: Negative <5 Equivoca l 5 - 9 Positive >9 PATIENT NOT FASTINGP ERFORMED BY: CB [facility] Bfftas5111 [address] RoadDublin [place] [id number] DNA double strand Ab Qn (S) 12 [IU]/mL Abnormal 0-9 [facility]; [facility] Work Phone: Comment on above: Negative <5 Equivoca l 5 - 9 Positive >9 PATIENT NOT FASTINGP ERFORMED BY: DEBBIE [facility] Wtgkio5355 [address] RoadDublin [place] [id number] Rheumatoid factor Qn [IU]/mL Normal 0.0-13.9 [facility] Work Phone: Comment on above: PATIENT NOT FASTINGP ERFORMED BY: CB [facility] Grhmmh3480 [address] RoadDublin [place] [id number] Rheumatoid factor Qn [IU]/mL Normal 0.0-13.9 [facility] re[facility]; [facility] Work Phone: Comment on above: PATIENT NOT FASTINGP ERFORMED BY: CB [facility] Jfqcje7492 [address] RoadDublin [place] [id number] Ribonucleoprotein extractable nuclear Ab Qn (S) 0.2 {AI} Normal 0.0-0.9 [facility] Work Phone: Comment on above: PATIENT NOT FASTINGP ERFORMED BY: CB [facility] Vtntrj6944 [address] RoadDublin [place] [id number] Sjogrens syndrome-A extractable nuclear Ab Qn (S) <0.2 Normal 0.0-0.9 [facility] Work Phone: Comment on above: PATIENT NOT FASTINGP ERFORMED BY: CB [facility] Ehjwot0931 [address] RoadDublin [place] [id number] Sjogrens syndrome-B extractable nuclear Ab Qn (S) <0.2 Normal 0.0-0.9 [facility] Work Phone: Comment on above: PATIENT NOT FASTINGP ERFORMED BY: CB [facility] Vozhsi4898 [address] RoadDublin [place] [id number] Allen extractable nuclear Ab Qn (S) <0.2 Normal 0.0-0.9 [facility] Work Phone: Comment on above: PATIENT NOT FASTINGP ERFORMED BY: CB [facility] Mbibhv6214 [address] RoadDublin [place] [id number] UPEP (05623)Ordered By: Syst em Automatic Paint Sprayer Operator on 04-15-2020 Albumin Elph (U) [Mass fraction] 32.4 % Normal [facility] Work Phone: Comment on above: PATIENT NOT FASTINGP ERFORMED BY: CB [facility] Xnilrm1168 [address] RoadDublin [place] [id number] Alpha 1 globulin Elph (U) [Mass fraction] 5.4 % Normal [facility] Work Phone: Comment on above: PATIENT NOT FASTINGP ERFORMED BY: CB [facility] Vfyksr4113 [address] RoadDublin [place] [id number] Alpha 2 globulin Elph (U) [Mass fraction] 19.0 % Normal Comprehens[facility] e [facility] Work Phone: Comment on above: PATIENT NOT FASTINGP ERFORMED BY: CB [facility] Stvujm6998 [address] RoadDublin [place] [id number] Beta globulin Elph (U) [Mass fraction] 28.2 % Normal [facility] Work Phone: Comment on above: PATIENT NOT FASTINGP ERFORMED BY: CB [facility] Huuyls1757 [address] RoadDublin [place] [id number] Gamma globulin Elph (U) [Mass fraction] 15.0 % Normal [facility]prehens[facility] Work Phone: Comment on above: PATIENT NOT FASTINGP ERFORMED BY: CB [facility] Zsmwba1309 [address] RoadDublin [place] [id number] Laboratory comment Dariusz (Report) SPRCS Normal [facility] Work Phone: Comment on above: Protein electrophore sis scan will follow via computer, mail, orcourier delivery. PATIENT NOT FASTINGP ERFORMED BY: CB [facility] Ojcjcs9319 [address] RoadDublin [place] [id number] Laboratory report . Normal Compreh ensive Internal Medicine Work Phone: Comment on above: PATIENT NOT FASTINGP ERFORMED BY: CB [facility] Vgcqqe3553 [address] RoadDublin [place] [id number] Protein (U) [Mass/Vol] 12.5 mg/dL Normal Co mprehensive [facility] Work Phone: Comment on above: PATIENT NOT FASTINGP ERFORMED BY: CB [facility] Vroxrt1563 [address] [facility]blin [place] [id number] Protein.monoclonal Elph (U) [Mass fraction] Comment: Normal [facility] Work Phone: Comment on above: ASYMMETRICAL GAMMA PATIENT NOT FASTINGP ERFORMED BY: CB [facility] Libiee8447 [address] [facility] [place] [id number] FREE TRIIDOTHYRONINE (T3) (0 9004)Ordered By: Eyeglass Assembler on 03-06-2020 Free T3 [Mass/Vol] 3.3 pg/mL Normal 2.0-4.4 [facility] Internal Medicine Work Phone: Comment on above: PATIENT NOT FASTINGP ERFORMED BY: CB [facility] Ngoljd8327 [address] [facility] [id number] BY: [employer] [id number] T4, FREE (87457)Ordered By: Eyeglass Assembler on 03-06-2020 Free T4 [Mass/Vol] 1.55 ng/dL Normal 0.82-1.77 [facility] Internal Medicine Work Phone: Comment on above: PATIENT NOT FASTINGP ERFORMED BY: CB [facility] Eoceki7646 [address] [facility] [id number] BY: [employer] [id number] TESTOSTERONE FREE (32021)Ord ered By: Eyeglass Assembler on 03-06-2020 Testosterone Free [Mass/Vol] 9.6 pg/mL Normal 6.6-18.1 [facility] Internal Medicine Work Phone: Comment on above: PATIENT NOT FASTINGP ERFORMED BY: CB [facility] Ydjkkv7653 [address] [facility] [id number] BY: [place] [id number] TSH (THYROID STIMULATING HOR KOBY) (07285)Ordered By: Eyeglass Assembler on 03-06-2020 TSH Qn 0.682 {uIU/mL} Normal 0.450-4.50 0 [facility] Work Phone: Comment on above: PATIENT NOT FASTINGP ERFORMED BY: DEBBIE LabMary [place] [id number] [facility] [id number] BY: BRAIN [facility]oodSaint [facility]1447 [facility] [id number] CBC W/AUTO DIFF WBC (29863)O rdered By: Eyeglass Assembler on 02-14-2020 Basophils (Bld) [#/Vol] 0.1 {x10E3/uL} Normal 0.0-0.2 [facility] Work Phone: Comment on above: PATIENT WAS FASTINGP ERFORMED BY: DEBBIE LabMary [place] [id number] [facility] [id number] Basophils (Bld) [#/Vol] 0.1 10*3/uL Normal 0.0-0.2 [facility] Work Phone: Comment on above: PATIENT WAS FASTINGP ERFORMED BY: DEBBIE LabMary [place] [id number] [facility] [id number] Basophils/100 WBC (Bld) 1 % Normal [facility] Work Phone: Comment on above: PATIENT WAS FASTINGP ERFORMED BY: DEBBIE Lab[facility] [place] [id number] [facility] [id number] Eosinophils (Bld) [#/Vol] 0.1 {x10E3/uL} Normal 0.0-0.4 [facility] Work Phone: Comment on above: PATIENT WAS FASTINGP ERFORMED BY: LabMary [place] [id number] [facility] [id number] Eosinophils (Bld) [#/Vol] 0.1 10*3/uL Normal 0.0-0.4 [facility] Work Phone: Comment on above: PATIENT WAS FASTINGP ERFORMED BY: [place] [id number] [facility] [id number] Eosinophils/100 WBC (Bld) 2 % Normal [facility] Work Phone: Comment on above: PATIENT WAS FASTINGP ERFORMED BY: [facility]6370 [facility] [id number] Erythrocyte distribution width (RBC) [Ratio] 12.3 % Normal 11.6-15.4 [facility] Work Phone: Comment on above: PATIENT WAS FASTINGP ERFORMED BY: [facility]6370 [facility] [id number] Hematocrit (Bld) [Volume fraction] 45.5 % Normal 37.5-51.0 [facility] Work Phone: Comment on above: PATIENT WAS FASTINGP ERFORMED BY: [place] [id number] [facility] [id number] Hemoglobin (Bld) [Mass/Vol] 15.4 g/dL Normal 13.0-17.7 [facility] Work Phone: Comment on above: PATIENT WAS FASTINGP ERFORMED BY: [place] [id number] [facility] [id number] Immature granulocytes (Bld) [#/Vol] 0.0 {x10E3/uL} Normal 0.0-0.1 [facility] Work Phone: Comment on above: PATIENT WAS FASTINGP ERFORMED BY: [place] [id number] [facility] [id number] Immature granulocytes (Bld) [#/Vol] 0.0 10*3/uL Normal 0.0-0.1 [facility] Work Phone: Comment on above: PATIENT WAS FASTINGP ERFORMED BY: [place] [id number] [facility] [id number] Immature granulocytes/100 WBC (Bld) 0 % Normal [facility] Work Phone: Comment on above: PATIENT WAS FASTINGP ERFORMED BY: [place] [id number] [facility] [id number] Lymphocytes (Bld) [#/Vol] 0.7 {x10E3/uL} Normal 0.7-3.1 [facility] Work Phone: Comment on above: PATIENT WAS FASTINGP ERFORMED BY: DEBBIE [facility] Oujbna[address] [facility] [address] [facility]in [place] [id number] Lymphocytes (Bld) [#/Vol] 0.7 10*3/uL Normal 0.7-3.1 [facility] Work Phone: Comment on above: PATIENT WAS FASTINGP ERFORMED BY: DEBBIE [facility] Jmxrfw9683 [facility] [id number] Lymphocytes/100 WBC (Bld) 15 % Normal [facility] Work Phone: Comment on above: PATIENT WAS FASTINGP ERFORMED BY: DEBBIE [facility] Mryyov4274 [facility] [id number] MCH (RBC) [Entitic mass] 32.0 pg Normal 26.6-33.0 [facility] Work Phone: Comment on above: PATIENT WAS FASTINGP ERFORMED BY: DEBBIE [facility] Imgazi9806 [facility] [id number] MCHC (RBC) [Mass/Vol] 33.8 g/dL Normal 31.5-35.7 [facility] Work Phone: Comment on above: PATIENT WAS FASTINGP ERFORMED BY: DEBBIE SoodHelen Devos [facility]6370 [facility] [id number] MCV (RBC) [Entitic vol] 94 fL Normal 79-97 [facility] Work Phone: Comment on above: PATIENT WAS FASTINGP ERFORMED BY: DEBBIE [facility] Rocrdt9256 [facility] [id number] Monocytes (Bld) [#/Vol] 0.5 {x10E3/uL} Normal 0.1-0.9 [facility] Work Phone: Comment on above: PATIENT WAS FASTINGP ERFORMED BY: DEBBIE LabHelen [facility] [facility]in [place] [id number] Monocytes (Bld) [#/Vol] 0.5 10*3/uL Normal 0.1-0.9 [facility] Work Phone: Comment on above: PATIENT WAS FASTINGP ERFORMED BY: DEBBIE [facility] Ahpmrl7820 [address] RoadDublin [place] [id number] Monocytes/100 WBC (Bld) 10 % Normal [facility] Work Phone: Comment on above: PATIENT WAS FASTINGP ERFORMED BY: DEBBIE [facility] Gtjyhq5500 [address] RoadDublin [place] [id number] Neutrophils (Bld) [#/Vol] 3.4 {x10E3/uL} Normal 1.4-7.0 [facility] Work Phone: Comment on above: PATIENT WAS FASTINGP ERFORMED BY: DEBBIE [facility] Mxacbk5785 [address] RoadDublin [place] [id number] Neutrophils (Bld) [#/Vol] 3.4 10*3/uL Normal 1.4-7.0 [facility] Work Phone: Comment on above: PATIENT WAS FASTINGP ERFORMED BY: DEBBIE Bradshawlin6370 [address] RoadDublin [place] [id number] Neutrophils/100 WBC (Bld) 72 % Normal [facility] Work Phone: Comment on above: PATIENT WAS FASTINGP ERFORMED BY: DEBBIE LabPiotr BradshawUknsjz6891 [address] RoadDublin [place] [id number] Platelets (Bld) [#/Vol] 210 {x10E3/uL} Normal 150-450 [facility] Work Phone: Comment on above: PATIENT WAS FASTINGP ERFORMED BY: DEBBIE [facility] Gkcrbk8789 [address] RoadDublin [place] [id number] Platelets (Bld) [#/Vol] 210 10*3/uL Normal 150-450 [facility] Work Phone: Comment on above: PATIENT WAS FASTINGP ERFORMED BY: DEBBIE [facility] Cuxcte7249 [address] RoadDublin [place] [id number] RBC (Bld) [#/Vol] 4.82 {x10E6/uL} Normal 4.14-5.80 [facility] Internal Medicine Work Phone: Comment on above: PATIENT WAS FASTINGP ERFORMED BY: DEBBIE [facility] Rikuoa3104 [address] RoadDublin [place] [id number] RBC (Bld) [#/Vol] 4.82 10*6/uL Normal 4.14-5.80 [facility] Internal Medicine Work Phone: Comment on above: PATIENT WAS FASTINGP ERFORMED BY: CB [facility] Lnkwek6100 [address]Dublin [place] [id number] WBC (Bld) [#/Vol] 4.8 {x10E3/uL} Normal 3.4-10.8 [facility] Internal Medicine Work Phone: Comment on above: PATIENT WAS FASTINGP ERFORMED BY: DEBBIE [facility] Cazjnz9223 [address] RoadDublin [place] [id number] WBC (Bld) [#/Vol] 4.8 10*3/uL Normal 3.4-10.8 [facility] Internal Medicine Work Phone: Comment on above: PATIENT WAS FASTINGP ERFORMED BY: DEBBIE [facility] Goyqgb9486 [address] Roadblin [place] [id number] METABOLIC PANEL, COMPREHENSI VE ([id number])Ordered By: Eyeglass Assembler on 02-14-2020 Albumin [Mass/Vol] 4.4 g/dL Normal 3.8-4.8 [facility] Internal Medicine Work Phone: Comment on above: PATIENT WAS FASTINGP ERFORMED BY: DEBBIE [facility] Hfnenf9636 [address] RoadDublin [place] [id number]; fu 9- DF Albumin/Globulin [Mass ratio] 1.9 {ratio} Normal 1.2-2.2 [facility] Internal Medicine Work Phone: Comment on above: PATIENT WAS FASTINGP ERFORMED BY: CB [facility] Eclbdb8713 [address] RoadDublin [place] [id number]; fu 9-9 DF ALP [Catalytic activity/Vol] 82 [iU]/L Normal 39-117 [facility] Internal Medicine Work Phone: Comment on above: PATIENT WAS FASTINGP ERFORMED BY: CB [facility] Aybumc7219 [address] RoadDublin [place] [id number]; fu 9-9 DF ALP [Catalytic activity/Vol] 82 U/L Normal 39-117 [facility] Work Phone: Comment on above: PATIENT WAS FASTINGP ERFORMED BY: CB [facility] Udayvc5747 [address] RoadDublin [place] [id number]; fu 9-9 DF ALT [Catalytic activity/Vol] 10 [iU]/L Normal 0-44 [facility] Work Phone: Comment on above: PATIENT WAS FASTINGP ERFORMED BY: CB [facility] Owvhdf1837 [address] RoadDublin [place] [id number]; fu 9-9 DF ALT [Catalytic activity/Vol] 10 U/L Normal 0-44 [facility] Work Phone: Comment on above: PATIENT WAS FASTINGP ERFORMED BY: CB [facility] Yymvsz8080 [address] RoadDublin [place] [id number]; fu 9-9 DF AST [Catalytic activity/Vol] 14 [iU]/L Normal 0-40 [facility] Work Phone: Comment on above: PATIENT WAS FASTINGP ERFORMED BY: CB [facility] Ywspma7713 [address] RoadDublin [place] [id number]; fu 9-9 DF AST [Catalytic activity/Vol] 14 U/L Normal 0-40 [facility] Work Phone: Comment on above: PATIENT WAS FASTINGP ERFORMED BY: CB [facility] Qzsuut1333 [address] RoadDublin [place] [id number]; fu 9-9 DF Bilirubin [Mass/Vol] 1.0 mg/dL Normal 0.0-1.2 Comp [facility] campusensive [facility] Work Phone: Comment on above: PATIENT WAS FASTINGP ERFORMED BY: CB [facility] Plbqpm7192 [address] RoadDublin [place] [id number]; fu 9-9 DF Calcium [Mass/Vol] 9.5 mg/dL Normal 8.6-10.2 [facility] Internal Medicine Work Phone: Comment on above: PATIENT WAS FASTINGP ERFORMED BY: CB [facility] Ozoyof1317 [address] RoadDublin [place] [id number]; fu 9-9 DF Chloride [Moles/Vol] 99 mmol/L Normal 96-106 [facility]erensive [facility] Work Phone: Comment on above: PATIENT WAS FASTINGP ERFORMED BY: CB [facility] Zbeezi4847 [address] RoadDublin [place] [id number]; fu 9-9 DF CO2 [Moles/Vol] 29 mmol/L Normal 20-29 [facility] Internal Medicine Work Phone: Comment on above: PATIENT WAS FASTINGP ERFORMED BY: CB [facility] Jftxvo5798 [address] RoadDublin [place] [id number]; fu 9-9 DF Creatinine [Mass/Vol] 1.05 mg/dL Normal 0.76-1.27 [facility] Internal Medicine Work Phone: Comment on above: PATIENT WAS FASTINGP ERFORMED BY: CB [facility] Vzeazh3836 [address] RoadDublin [place] [id number]; fu 9- DF GFR/1.73 sq M predicted among blacks CKD-EPI (S/P/Bld) [Vol rate/Area] 83 mL/min/1.73 Normal [facility] Work Phone: Comment on above: PATIENT WAS FASTINGP ERFORMED BY: CB [facility] Rbwiut0068 [address] RoadDublin [place] [id number]; fu - DF GFR/1.73 sq M predicted among non-blacks CKD-EPI (S/P/Bld) [Vol rate/Area] 72 mL/min/1.73 Normal [facility] Work Phone: Comment on above: PATIENT WAS FASTINGP ERFORMED BY: CB [facility] Wspviv5289 [address] RoadDublin [place] [id number]; fu 9-9 DF Globulin (S) [Mass/Vol] 2.3 g/dL Normal 1.5-4.5 [facility] Work Phone: Comment on above: PATIENT WAS FASTINGP ERFORMED BY: CB [facility] Cadcxg5765 [address] RoadDublin [place] [id number]; fu 9-9 DF Glucose [Mass/Vol] 94 mg/dL Normal 65-99 [facility] Internal Medicine Work Phone: Comment on above: PATIENT WAS FASTINGP ERFORMED BY: CB [facility] Yhofyo0002 [address] RoadDublin [place] [id number]; fu 9-9 DF Potassium [Moles/Vol] 4.6 mmol/L Normal 3.5-5.2 [facility] Internal Medicine Work Phone: Comment on above: PATIENT WAS FASTINGP ERFORMED BY: CB [facility] Prrarb9473 [address] RoadDublin [place] [id number]; fu 9-9 DF Protein [Mass/Vol] 6.7 g/dL Normal 6.0-8.5 [facility] Internal Medicine Work Phone: Comment on above: PATIENT WAS FASTINGP ERFORMED BY: CB [facility] Inndik2198 [address] RoadDublin [place] [id number]; fu 9-9 DF Sodium [Moles/Vol] 140 mmol/L Normal 134-144 [facility] Internal Medicine Work Phone: Comment on above: PATIENT WAS FASTINGP ERFORMED BY: CB [facility] Dydiyd8046 [address] RoadDublin [place] [id number]; fu 9-9 DF Urea nitrogen [Mass/Vol] 22 mg/dL Normal 8-27 [facility] Internal Medicine Work Phone: Comment on above: PATIENT WAS FASTINGP ERFORMED BY: CB [facility] Dcuske4951 [address] RoadDublin [place] [id number]; fu 9-9 DF Urea nitrogen/Creatinine [Mass ratio] 21 mg/mg Normal 10-24 [facility] Internal Medicine Work Phone: Comment on above: PATIENT WAS FASTINGP ERFORMED BY: CB [facility] Avizop5466 [address] RoadDublin [place] [id number]; fu 9-9 DF PSA (PROSTATE SPECIFIC ANTIG EN) ([id number])Ordered By: Eyeglass Assembler on 02-14-2020 Prostate specific Ag [Mass/Vol] 2.7 ng/mL Normal 0.0-4.0 [facility] Internal Medicine Work Phone: Comment on above: Ciara ECLIA methodol ogy. .According to the [place] [employer], Serum PSA shoulddecrease and remain [...] PATIENT WAS FASTINGP ERFORMED BY: CB [facility] Jnsyif3750 [address] RoadDublin [place] [id number] URINALYSIS, W/ MICRO ([id number]) Ordered By: Eyeglass Assembler on 02-14-2020 Appearance (U) Clear Normal Comprehens vane Internal Medicine Work Phone: Comment on above: PATIENT WAS FASTINGP ERFORMED BY: CB [facility] Gswyrt7397 [address] RoadD[address] [place] [id number] Bilirubin Ql (U) Negative Normal Comprehe nsive Internal Medicine Work Phone: Comment on above: PATIENT WAS FASTINGP ERFORMED BY: CB [facility] Bijmni6983 [address] RoadDublin [place] [id number] Bilirubin Ql (U) Negative Normal Comprehe nsive Internal Medicine Work Phone: Comment on above: PATIENT WAS FASTINGP ERFORMED BY: CB [facility] Hxuriw3871 [address] RoadDublin [place] [id number] Color (U) Yellow Normal [facility] Work Phone: Comment on above: PATIENT WAS FASTINGP ERFORMED BY: CB [facility] Htmfrw1374 [address] RoadDublin [place] [id number] Glucose Ql (U) Negative Normal Comprehens vane Internal Medicine Work Phone: Comment on above: PATIENT WAS FASTINGP ERFORMED BY: CB [facility] Ovjlwk6650 [address] RoadD[address] [place] [id number] Glucose Ql (U) Negative Normal Comprehens vane Internal Medicine Work Phone: Comment on above: PATIENT WAS FASTINGP ERFORMED BY: CB [facility] Ibuwxi7240 [address] RoadD[address] [place] [id number] Hemoglobin Ql (U) Negative Normal Compreh ensive Internal Medicine Work Phone: Comment on above: PATIENT WAS FASTINGP ERFORMED BY: DEBBIE Eden6370 [address] RoadD[address] [place] [id number] Hemoglobin Ql (U) Negative Normal Compreh ensive Internal Medicine Work Phone: Comment on above: PATIENT WAS FASTINGP ERFORMED BY: DEBBIE Jones70 [address] RoadDublin [place] [id number] Ketones Ql (U) Negative Normal Comprehens [facility]ane Internal Medicine Work Phone: Comment on above: PATIENT WAS FASTINGP ERFORMED BY: DEBBIE Jones70 [address] RoadD[address] [place] [id number] Ketones Ql (U) Negative Normal Comprehens [facility] Internal Medicine Work Phone: Comment on above: PATIENT WAS FASTINGP ERFORMED BY: DEBBIE Jones70 [address] RoadD[address] [place] [id number] Leukocyte esterase Test strip Ql (U) Negative Normal [facility] Work Phone: Comment on above: PATIENT WAS FASTINGP ERFORMED BY: DEBBIE Jones70 [address] RoadDublin [place] [id number] Leukocyte esterase Test strip Ql (U) Negative Normal [facility] Work Phone: Comment on above: PATIENT WAS FASTINGP ERFORMED BY: DEBBIE Jones70 [address] RoadDublin [place] [id number] Microscopic observation LM Nom (Urine sed) See below: Normal [facility] Work Phone: Comment on above: Microscopic was naun cated and was performed. PATIENT WAS FASTINGP ERFORMED BY: DEBBIE Bradshawlin6370 [address] RoadDublin [place] [id number] Microscopic observation LM Nom (Urine sed) MICRON Normal [facility] Work Phone: Comment on above: Microscopic follows if indicated. PATIENT WAS FASTINGP ERFORMED BY: DEBBIE Eden6370 [address] RoadDublin [place] [id number] Nitrite Ql (U) Negative Normal Comprehens [facility] Internal Medicine Work Phone: Comment on above: PATIENT WAS FASTINGP ERFORMED BY: DEBBIE Eden6370 [address] RoadD[address] [place] [id number] Nitrite Ql (U) Negative Normal Comprehens [facility] Internal Medicine Work Phone: Comment on above: PATIENT WAS FASTINGP ERFORMED BY: DEBBIE Eden6370 [address]bl[address] [place] [id number] pH (U) 6.0 [pH] Normal 5.0-7.5 [facility] Work Phone: Comment on above: PATIENT WAS FASTINGP ERFORMED BY: DEBBIE Eden6370 [address] RoadDublin [place] [id number] Protein Ql (U) Negative Normal Comprehens [facility] Internal Medicine Work Phone: Comment on above: PATIENT WAS FASTINGP ERFORMED BY: DEBBIE Eden6370 [address] RoadCritical Access Hospitalin [place] [id number] Protein Ql (U) Negative Normal Comprehens vane Internal Medicine Work Phone: Comment on above: PATIENT WAS FASTINGP ERFORMED BY: DEBBIE Eden[address] [facility]bl[facility] [place] [id number] Specific gravity (U) [Rel density] 1.021 1 Normal 1.005-1.03 0 [facility] Work Phone: Comment on above: PATIENT WAS FASTINGP ERFORMED BY: DEBBIE Eden6370 [address] RoadCritical Access Hospitalin [place] [id number] Urobilinogen (U) [Mass/Vol] 0.2 mg/dL Normal 0.2-1.0 [facility] Work Phone: Comment on above: PATIENT WAS FASTINGP ERFORMED BY: DEBBIE Eden6370 [address]Dublin [place] [id number] Urobilinogen Test strip (U) [Mass/Vol] 0.2 mg/dL Normal 0.2-1.0 Comprehensi Internal Medicine Work Phone: Comment on above: PATIENT WAS FASTINGP ERFORMED BY: DEBBIE Aparicio Tcmhyk3686 [address] RoadDublin [place] [id number] TESTOSTERONE FREE ([id number])Ord ered By: Eyeglass Assembler on 12-14-2018 Testosterone Free [Mass/Vol] 8.3 pg/mL Normal 6.6-18.1 [facility] Work Phone: Comment on above: PATIENT NOT FASTINGP ERFORMED BY: [facility]1447 [facility] [id number] CBC & PLATELETS (AUTO) ([id number])Ordered By: Eyeglass Assembler on 11-22-2018 Erythrocyte distribution width Ratio (RBC) 13.4 % Normal 12.3-15.4 [facility] Work Phone: Comment on above: PATIENT NOT FASTINGP ERFORMED BY: LabHelen [facility]os [facility]6[address] [facility]in [place] [id number] Hematocrit Volume Fraction (Bld) 43.6 % Normal 37.5-51.0 [facility] Work Phone: Comment on above: PATIENT NOT FASTINGP ERFORMED BY: LabCoMountain View Regional Medical CenterUlryjd9658 [address] RoadCritical Access Hospitalin [place] [id number] Hemoglobin mass conc (Bld) 15.0 g/dL Normal 13.0-17.7 [facility] Work Phone: Comment on above: PATIENT NOT FASTINGP ERFORMED BY: [facility] Ebfypy2177 [address] [facility]in [place] [id number] MCH Entitic mass (RBC) 31.8 pg Normal 26.6-33.0 [facility] Internal Medicine Work Phone: Comment on above: PATIENT NOT FASTINGP ERFORMED BY: [facility] Joykmn2869 [address] [facility]in [place] [id number] MCHC mass conc (RBC) 34.4 g/dL Normal 31.5-35.7 [facility] Internal Medicine Work Phone: Comment on above: PATIENT NOT FASTINGP ERFORMED BY: [facility] Kbmltl2445 [address] [facility]in [place] [id number] MCV Entitic volume (RBC) 93 fL Normal 79-97 [facility] Work Phone: Comment on above: PATIENT NOT FASTINGP ERFORMED BY: CB [facility] Lzkkem4640 [address] RoadDublin [place] [id number] Platelets #/vol (Bld) 197 {x10E3/uL} Normal 150-450 [facility] Work Phone: Comment on above: Please note refere nce interval change PATIENT NOT FASTINGP ERFORMED BY: CB [facility] Qztaml2831 [address] RoadDublin [place] [id number] Platelets (Bld) [#/Vol] 197 10*3/uL Normal 150-450 [facility] Work Phone: Comment on above: Please note refere nce interval change PATIENT NOT FASTINGP ERFORMED BY: CB [facility] Ezeilc7992 [address] RoadDublin [place] [id number] RBC #/vol (Bld) 4.71 {x10E6/uL} Normal 4.14-5.80 Comp [facility] Internal Medicine Work Phone: Comment on above: PATIENT NOT FASTINGP ERFORMED BY: CB [facility] Mgrccn3825 [address] RoadDublin [place] [id number] RBC (Bld) [#/Vol] 4.71 10*6/uL Normal 4.14-5.80 Compr ensive Internal Medicine Work Phone: Comment on above: PATIENT NOT FASTINGP ERFORMED BY: CB [facility] Fcfdem3879 [address] RoadDublin [place] [id number] WBC #/vol (Bld) 4.2 {x10E3/uL} Normal 3.4-10.8 Compr ensive Internal Medicine Work Phone: Comment on above: PATIENT NOT FASTINGP ERFORMED BY: CB [facility] Tmbrjb9275 [address] RoadDublin [place] [id number] WBC (Bld) [#/Vol] 4.2 10*3/uL Normal 3.4-10.8 Compre [facility] Internal Medicine Work Phone: Comment on above: PATIENT NOT FASTINGP ERFORMED BY: CB [facility] Sxlwmt1664 [address] RoadDublin [place] [id number] METABOLIC PANEL, COMPREHENSI VE ([id number])Ordered By: Eyeglass Assembler on 11-22-2018 Albumin mass conc 4.6 g/dL Normal 3.6-4.8 Compreh ensive Internal Medicine Work Phone: Comment on above: PATIENT NOT FASTINGP ERFORMED BY: CB [facility] Fjgodv6355 [address] RoadDublin [place] [id number]; fu 6-19 DF Albumin/Globulin mass ratio 2.2 {ratio} Normal 1.2-2.2 [facility] Work Phone: Comment on above: PATIENT NOT FASTINGP ERFORMED BY: CB [facility] Ecslwz5410 [address] RoadDublin [place] [id number]; fu 6-19 DF ALP [Catalytic activity/Vol] 83 U/L Normal 39-117 [facility] Work Phone: Comment on above: PATIENT NOT FASTINGP ERFORMED BY: CB [facility] Pvhjqp1219 [address] RoadDublin [place] [id number]; fu 6-19 DF ALP enzyme act/vol 83 [iU]/L Normal 39-117 [facility] Internal Medicine Work Phone: Comment on above: PATIENT NOT FASTINGP ERFORMED BY: CB [facility] Wjfwab9855 [address] RoadDublin [place] [id number]; fu 6-19 DF ALT [Catalytic activity/Vol] 15 U/L Normal 0-44 [facility] Work Phone: Comment on above: PATIENT NOT FASTINGP ERFORMED BY: CB [facility] Jmgvqk8313 [address] RoadDublin [place] [id number]; fu 6-19 DF ALT enzyme act/vol 15 [iU]/L Normal 0-44 [facility] Internal Medicine Work Phone: Comment on above: PATIENT NOT FASTINGP ERFORMED BY: CB [facility] Ozvyym8711 [address] RoadDublin [place] [id number]; fu 6-19 DF AST [Catalytic activity/Vol] 19 U/L Normal 0-40 [facility] Work Phone: Comment on above: PATIENT NOT FASTINGP ERFORMED BY: CB [facility] Zevjrs2435 [address] RoadDublin [place] [id number]; fu 6-19 DF AST enzyme act/vol 19 [iU]/L Normal 0-40 Compre [facility] Internal Medicine Work Phone: Comment on above: PATIENT NOT FASTINGP ERFORMED BY: CB [facility] Faevou5805 [address] RoadDublin [place] [id number]; fu 6-19 DF Bilirubin mass conc 0.8 mg/dL Normal 0.0-1.2 Compr ensive Internal Medicine Work Phone: Comment on above: PATIENT NOT FASTINGP ERFORMED BY: CB [facility] Fcqkew1687 [address] RoadDublin [place] [id number]; fu 6-19 DF Calcium mass conc 9.5 mg/dL Normal 8.6-10.2 Compreh [facility]ive Internal Medicine Work Phone: Comment on above: PATIENT NOT FASTINGP ERFORMED BY: CB [facility] Xpnvau7811 [address] RoadDublin [place] [id number]; fu 6-19 DF Chloride molar conc 101 mmol/L Normal 96-106 Compr ensive Internal Medicine Work Phone: Comment on above: PATIENT NOT FASTINGP ERFORMED BY: CB [facility] Ladysr3954 [address] RoadD[address] [place] [id number]; fu 6-19 DF CO2 molar conc 23 mmol/L Normal 20-29 Comprehens vane Internal Medicine Work Phone: Comment on above: PATIENT NOT FASTINGP ERFORMED BY: CB [facility] Kkfovw2470 [address] RoadDublin [place] [id number]; fu 6-19 DF Creatinine mass conc 1.11 mg/dL Normal 0.76-1.27 Comp [facility]ensive Internal Medicine Work Phone: Comment on above: PATIENT NOT FASTINGP ERFORMED BY: CB [facility] Vvxnxf4899 [address] RoadDublin [place] [id number]; fu 6- DF GFR/1.73 sq M predicted among blacks CKD-EPI vol rate/area (S/P/Bld) 78 mL/min/1.73 Normal [facility] Work Phone: Comment on above: PATIENT NOT FASTINGP ERFORMED BY: DEBBIE LabCojean pierre EdenNimykl2102 [address] RoadDublin [place] [id number]; fu 6- DF GFR/1.73 sq M predicted among non-blacks CKD-EPI vol rate/area (S/P/Bld) 67 mL/min/1.73 Normal Comprehensiv e Internal Medicine Work Phone: Comment on above: PATIENT NOT FASTINGP ERFORMED BY: DEBBIE [facility] Dmelea1456 [address] RoadDublin [place] [id number]; fu 6- DF Globulin mass conc (S) 2.1 g/dL Normal 1.5-4.5 Co mprehensive Internal Medicine Work Phone: Comment on above: PATIENT NOT FASTINGP ERFORMED BY: DEBBIE [facility] Bfaufb1737 [address] RoadDublin [place] [id number]; fu 6- DF Glucose mass conc 95 mg/dL Normal 65-99 Compreh ensive Internal Medicine Work Phone: Comment on above: PATIENT NOT FASTINGP ERFORMED BY: DEBBIE [facility] Uspurl6738 [address] RoadDublin [place] [id number]; fu 6- DF Potassium molar conc 4.6 mmol/L Normal 3.5-5.2 Comp rehensive Internal Medicine Work Phone: Comment on above: PATIENT NOT FASTINGP ERFORMED BY: CB [facility] Nfuyrg5555 [address] RoadDublin [place] [id number]; fu 6- DF Protein mass conc 6.7 g/dL Normal 6.0-8.5 Compreh ensive Internal Medicine Work Phone: Comment on above: PATIENT NOT FASTINGP ERFORMED BY: CB [facility] Smubey0051 [address] RoadD[address] [place] [id number]; fu 6- DF Sodium molar conc 141 mmol/L Normal 134-144 Compreh ensive Internal Medicine Work Phone: Comment on above: PATIENT NOT FASTINGP ERFORMED BY: CB [facility] Srsxow4231 [address] RoadDublin [place] [id number]; fu 6-19 DF Urea nitrogen mass conc 21 mg/dL Normal 8-27 [facility] Work Phone: Comment on above: PATIENT NOT FASTINGP ERFORMED BY: CB [facility] Jvtxoy9787 [address] RoadD[address] [place] [id number]; fu 6-19 DF Urea nitrogen/Creatinine mass ratio 19 mg/mg Normal 10-24 [facility] Work Phone: Comment on above: PATIENT NOT FASTINGP ERFORMED BY: CB [facility] Zyyhpr7532 [address] RoadD[address] [place] [id number]; fu 6-19 DF URINALYSIS ([id number])Ordered By : Eyeglass Assembler on 11-22-2018 Appearance Nom (U) Clear Normal Compre hensive Internal Medicine Work Phone: Comment on above: PATIENT NOT FASTINGP ERFORMED BY: CB [facility] Afvybs9875 [address] RoadD[address] [place] [id number] Bilirubin Ql (U) Negative Normal Comprehe nsive Internal Medicine Work Phone: Comment on above: PATIENT NOT FASTINGP ERFORMED BY: CB [facility] Eroxpl5928 [address] RoadDublin [place] [id number] Bilirubin Ql (U) Negative Normal Comprehe nsive Internal Medicine Work Phone: Comment on above: PATIENT NOT FASTINGP ERFORMED BY: CB [facility] Pemrkt2821 [address] [place] [id number] Color Nom (U) Yellow Normal Comprehensi ve Internal Medicine Work Phone: Comment on above: PATIENT NOT FASTINGP ERFORMED BY: CB [facility] Geqrvs0122 [address] RoadDublin [place] [id number] Glucose Ql (U) Negative Normal Comprehens vane Internal Medicine Work Phone: Comment on above: PATIENT NOT FASTINGP ERFORMED BY: CB [facility] Nianbk5458 [address]kn[address] RoadDublin [place] [id number] Glucose Ql (U) Negative Normal Comprehens vane Internal Medicine Work Phone: Comment on above: PATIENT NOT FASTINGP ERFORMED BY: DEBBIE Aj Dfysty5892 [address] RoadD[address] [place] [id number] Hemoglobin Ql (U) Negative Normal Compreh ensive Internal Medicine Work Phone: Comment on above: PATIENT NOT FASTINGP ERFORMED BY: DEBBIE Aj Gzzgzn0600 [address] RoadD[address] [place] [id number] Hemoglobin Ql (U) Negative Normal Compreh ensive Internal Medicine Work Phone: Comment on above: PATIENT NOT FASTINGP ERFORMED BY: DEBBIE Alessandrajean pierre BradshawNzykzc1599 [address] RoadDublin [place] [id number] Ketones Ql (U) Negative Normal Comprehens vane Internal Medicine Work Phone: Comment on above: PATIENT NOT FASTINGP ERFORMED BY: DEBBIE Alessandrajean pierre BradshawYzahls8562 Jenkins RoadDublin [place] [id number] Ketones Ql (U) Negative Normal [facility] Work Phone: Comment on above: PATIENT NOT FASTINGP ERFORMED BY: DEBBIE Alessandrajean pierre BradshawMclolj3629 [address] RoadDublin [place] [id number] Leukocyte esterase Test strip Ql (U) Negative Normal [facility] Work Phone: Comment on above: PATIENT NOT FASTINGP ERFORMED BY: DEBBIE Alessandrajean pierre BradshawHmqcls0149 Jenkins RoadDublin [place] [id number] Leukocyte esterase Test strip Ql (U) Negative Normal [facility] Work Phone: Comment on above: PATIENT NOT FASTINGP ERFORMED BY: DEBBIE Alessandrajean pierre BradshawGszrjs2517 Jenkins RoadDublin [place] [id number] Microscopic observation LM Nom (Urine sed) MICNIP Normal [facility] Work Phone: Comment on above: Microscopic not naun cated and not performed. PATIENT NOT FASTINGP ERFORMED BY: DEBBIE Alessandrajean pierre BradshawWzbgax7637 Jenkins RoadDublin [place] [id number] Nitrite Ql (U) Negative Normal [facility] Work Phone: Comment on above: PATIENT NOT FASTINGP ERFORMED BY: DEBBIE LabCojean pierre BradshawQdnxqm4597 Jenkins RoadDublin [place] [id number] Nitrite Ql (U) Negative Normal [facility] Work Phone: Comment on above: PATIENT NOT FASTINGP ERFORMED BY: DEBBIE Eden6370 [facility] [id number] pH (U) 5.5 [pH] Normal 5.0-7.5 [facility] Work Phone: Comment on above: PATIENT NOT FASTINGP ERFORMED BY: DEBBIE Aj Cfcxjr4257 [facility] [id number] Protein Ql (U) Negative Normal [facility] Work Phone: Comment on above: PATIENT NOT FASTINGP ERFORMED BY: DEBBIE Alessandrajean pierre BradshawXechcb9533 [facility] [id number] Protein Ql (U) Negative Normal [facility] Work Phone: Comment on above: PATIENT NOT FASTINGP ERFORMED BY: DEBBIE Aj Bshhyo2588 [facility] [id number] Specific gravity Relative Density (U) 1.021 1 Normal 1.005-1.03 0 [facility] Work Phone: Comment on above: PATIENT NOT FASTINGP ERFORMED BY: DEBBIE Aj Qzzdtk4133 [facility] [id number] Urobilinogen (U) [Mass/Vol] 0.2 mg/dL Normal 0.2-1.0 [facility] Work Phone: Comment on above: PATIENT NOT FASTINGP ERFORMED BY: DEBBIE Aj Kkkvtz8522 [facility] [id number] Urobilinogen Test strip mass conc (U) 0.2 mg/dL Normal 0.2-1.0 [facility] Work Phone: Comment on above: PATIENT NOT FASTINGP ERFORMED BY: DEBBIE BarriePiotr BradshawProgxq8013 [facility] [id number] CBC W/AUTO DIFF WBC (99795)O rdered By: Eyeglass Assembler on 04-08-2018 Basophils #/vol (Bld) 0.0 {x10E3/uL} Normal 0.0-0.2 [facility] Work Phone: Comment on above: PATIENT WAS FASTINGP ERFORMED BY: [place] [id number] [facility] [id number] Basophils (Bld) [#/Vol] 0.0 10*3/uL Normal 0.0-0.2 [facility] Work Phone: Comment on above: PATIENT WAS FASTINGP ERFORMED BY: [address] [id number] Basophils Auto #/vol (Bld) 0.0 {x10E3/uL} Normal 0.0-0.2 [facility] Work Phone: Basophils/100 WBC (Bld) 1 % Normal [facility] Work Phone: Comment on above: PATIENT WAS FASTINGP ERFORMED BY: [address] [id number] Basophils/100 WBC Auto (Bld) 1 % Normal [facility] Work Phone: Eosinophils #/vol (Bld) 0.1 {x10E3/uL} Normal 0.0-0.4 [facility] Work Phone: Comment on above: PATIENT WAS FASTINGP ERFORMED BY: [address] [id number] Eosinophils (Bld) [#/Vol] 0.1 10*3/uL Normal 0.0-0.4 [facility] Work Phone: Comment on above: PATIENT WAS FASTINGP ERFORMED BY: [address] [id number] Eosinophils Auto #/vol (Bld) 0.1 {x10E3/uL} Normal 0.0-0.4 [facility] Work Phone: Eosinophils/100 WBC (Bld) 2 % Normal [facility] Work Phone: Comment on above: PATIENT WAS FASTINGP ERFORMED BY: DEBBIE [facility]6370 [facility] [id number] Eosinophils/100 WBC Auto (Bld) 2 % Normal [facility] Work Phone: Erythrocyte distribution width Auto Ratio (RBC) 13.5 % Normal 12.3-15.4 [facility] Work Phone: Erythrocyte distribution width Ratio (RBC) 13.5 % Normal 12.3-15.4 [facility] Work Phone: Comment on above: PATIENT WAS FASTINGP ERFORMED BY: [place] [id number] [facility] [id number] Hematocrit Auto Volume Fraction (Bld) 48.4 % Normal 37.5-51.0 [facility] Work Phone: Hematocrit Volume Fraction (Bld) 48.4 % Normal 37.5-51.0 [facility] Work Phone: Comment on above: PATIENT WAS FASTINGP ERFORMED BY: [place] [id number] [facility] [id number] Hemoglobin mass conc (Bld) 16.2 g/dL Normal 13.0-17.7 [facility] Work Phone: Comment on above: PATIENT WAS FASTINGP ERFORMED BY: [place] [id number] [facility] [id number] Immature granulocytes #/vol (Bld) 0.0 {x10E3/uL} Normal 0.0-0.1 [facility] Work Phone: Comment on above: PATIENT WAS FASTINGP ERFORMED BY: LabMary Ville [id number] [facility] [id number] Immature granulocytes (Bld) [#/Vol] 0.0 10*3/uL Normal 0.0-0.1 [facility] Work Phone: Comment on above: PATIENT WAS FASTINGP ERFORMED BY: [place] [id number] [facility] [id number] Immature granulocytes/100 WBC (Bld) 0 % Normal [facility] Work Phone: Comment on above: PATIENT WAS FASTINGP ERFORMED BY: [facility]6370 [facility] [id number] Lymphocytes #/vol (Bld) 1.2 {x10E3/uL} Normal 0.7-3.1 [facility] Work Phone: Comment on above: PATIENT WAS FASTINGP ERFORMED BY: [place] [id number] [facility] [id number] Lymphocytes (Bld) [#/Vol] 1.2 10*3/uL Normal 0.7-3.1 [facility] Work Phone: Comment on above: PATIENT WAS FASTINGP ERFORMED BY: [place] [id number] [facility] [id number] Lymphocytes Auto #/vol (Bld) 1.2 {x10E3/uL} Normal 0.7-3.1 [facility] Work Phone: Lymphocytes/100 WBC (Bld) 20 % Normal [facility] Work Phone: Comment on above: PATIENT WAS FASTINGP ERFORMED BY: [facility]6370 [facility] [id number] Lymphocytes/100 WBC Auto (Bld) 20 % Normal [facility] Work Phone: MCH Auto Entitic mass (RBC) 32.0 pg Normal 26.6-33.0 [facility] Work Phone: MCH Entitic mass (RBC) 32.0 pg Normal 26.6-33.0 [facility] Work Phone: Comment on above: PATIENT WAS FASTINGP ERFORMED BY: [facility]6370 [facility] [id number] MCHC Auto mass conc (RBC) 33.5 g/dL Normal 31.5-35.7 [facility] Work Phone: MCHC mass conc (RBC) 33.5 g/dL Normal 31.5-35.7 [facility] Work Phone: Comment on above: PATIENT WAS FASTINGP ERFORMED BY: [facility]6370 [facility] [id number] MCV Auto Entitic volume (RBC) 96 fL Normal 79-97 [facility] Work Phone: MCV Entitic volume (RBC) 96 fL Normal 79-97 [facility] Work Phone: Comment on above: PATIENT WAS FASTINGP ERFORMED BY: [place] [id number] [facility] [id number] Monocytes #/vol (Bld) 0.6 {x10E3/uL} Normal 0.1-0.9 [facility] Work Phone: Comment on above: PATIENT WAS FASTINGP ERFORMED BY: [place] [id number] [facility] [id number] Monocytes (Bld) [#/Vol] 0.6 10*3/uL Normal 0.1-0.9 [facility] Work Phone: Comment on above: PATIENT WAS FASTINGP ERFORMED BY: [place] [id number] [facility] [id number] Monocytes Auto #/vol (Bld) 0.6 {x10E3/uL} Normal 0.1-0.9 [facility] Work Phone: Monocytes/100 WBC (Bld) 11 % Normal [facility] Work Phone: Comment on above: PATIENT WAS FASTINGP ERFORMED BY: [place] [id number] [facility] [id number] Monocytes/100 WBC Auto (Bld) 11 % Normal [facility] Work Phone: Neutrophils #/vol (Bld) 4.1 {x10E3/uL} Normal 1.4-7.0 [facility] Work Phone: Comment on above: PATIENT WAS FASTINGP ERFORMED BY: [facility]6[address] [facility] [id number] Neutrophils (Bld) [#/Vol] 4.1 10*3/uL Normal 1.4-7.0 [facility] Work Phone: Comment on above: PATIENT WAS FASTINGP ERFORMED BY: DEBBIE [facility] Wfukpd7047 Jenkins RoadDublin [place] [id number] Neutrophils Auto #/vol (Bld) 4.1 {x10E3/uL} Normal 1.4-7.0 [facility] Work Phone: Neutrophils/100 WBC (Bld) 66 % Normal [facility] Work Phone: Comment on above: PATIENT WAS FASTINGP ERFORMED BY: DEBBIE [facility] Acqsgd2099 [address] RoadDublin [place] [id number] Neutrophils/100 WBC Auto (Bld) 66 % Normal [facility] Work Phone: Platelets #/vol (Bld) 209 {x10E3/uL} Normal 150-379 [facility] Work Phone: Comment on above: PATIENT WAS FASTINGP ERFORMED BY: DEBBIE [facility] Dwnigg8813 [address] RoadCritical Access Hospitalin [place] [id number] Platelets (Bld) [#/Vol] 209 10*3/uL Normal 150-379 [facility] Work Phone: Comment on above: PATIENT WAS FASTINGP ERFORMED BY: DEBBIE [facility] Iwxpbx9920 [address] [facility]bl[facility] [place] [id number] Platelets Auto #/vol (Bld) 209 {x10E3/uL} Normal 150-379 [facility] Work Phone: RBC #/vol (Bld) 5.07 {x10E6/uL} Normal 4.14-5.80 [facility] Medicine Work Phone: Comment on above: PATIENT WAS FASTINGP ERFORMED BY: DEBBIE [facility] Krhpzu3527 Jenkins RoadDublin [place] [id number] RBC (Bld) [#/Vol] 5.07 10*6/uL Normal 4.14-5.80 [facility] Internal Medicine Work Phone: Comment on above: PATIENT WAS FASTINGP ERFORMED BY: DEBBIE [facility] Wycwzk1397 [address] [facility]blin [place] [id number] RBC Auto #/vol (Bld) 5.07 {x10E6/uL} Normal 4.14-5.80 [facility] Work Phone: WBC #/vol (Bld) 6.1 {x10E3/uL} Normal 3.4-10.8 Compr [facility] Internal [facility] Work Phone: Comment on above: PATIENT WAS FASTINGP ERFORMED BY: CB [facility] Muudvl2077 Jenkins Roadblin [place] [id number] WBC (Bld) [#/Vol] 6.1 10*3/uL Normal 3.4-10.8 Compre [facility] Internal Medicine Work Phone: Comment on above: PATIENT WAS FASTINGP ERFORMED BY: CB [facility] Eofutk8401 [address] [facility] Hospitalblin [place] [id number] WBC Auto #/vol (Bld) 6.1 {x10E3/uL} Normal 3.4-10.8 [facility] Work Phone: LIPID PANEL ([id number])Ordered B y: Eyeglass Assembler on 04-08-2018 Cholesterol in HDL mass conc 64 mg/dL Normal [facility] Work Phone: Comment on above: Effective April 18, 2018, HDL Cholesterol reference interval will be changing to: Male Female 40 - 142517 50 - 165258 PATIENT WAS FASTINGP ERFORMED BY: [facility] Uycnes6214 [facility] [id number] Cholesterol in LDL mass conc 74 mg/dL Normal 0-99 [facility] Work Phone: Comment on above: PATIENT WAS FASTINGP ERFORMED BY: CB [facility] Oeucno1478 [address] [facility] [place] [id number] Cholesterol in LDL/Cholesterol in HDL mass ratio 1.2 {ratio} Normal 0.0-3.6 [facility] Work Phone: Comment on above: LDL/HDL Ratio Men Wo men 1/2 Avg.Risk 1.0 1.5 Avg.Risk 3.6 3.2 2X Avg.Risk 6.2 5.0 3X Avg.Risk 8.0 6.1 PATIENT WAS FASTINGP ERFORMED BY: DEBBIE Bradshawlin6370 [address] RoadDublin [place] [id number] Cholesterol in VLDL mass conc 12 mg/dL Normal 5-40 [facility] Work Phone: Comment on above: PATIENT WAS FASTINGP ERFORMED BY: DEBBIE Bradshawlin6370 [address] RoadDublin [place] [id number] Cholesterol mass conc 150 mg/dL Normal 100-199 Com prehensive Internal Medicine Work Phone: Comment on above: PATIENT WAS FASTINGP ERFORMED BY: DEBBIE LabPiotr BradshawOrlokm0929 Jeknins RoadDublin [place] [id number] Triglyceride mass conc 62 mg/dL Normal 0-149 Co [facility] walnut lawnehensive Internal Medicine Work Phone: Comment on above: PATIENT WAS FASTINGP ERFORMED BY: DEBBIE Bradshawlin6370 [address] [facility] [id number] METABOLIC PANEL, COMPREHENSI VE (70461)Ordered By: Eyeglass Assembler on 04-08-2018 Albumin mass conc 4.6 g/dL Normal 3.6-4.8 Compreh ensive Internal Medicine Work Phone: Comment on above: PATIENT WAS FASTINGP ERFORMED BY: DEBBIE Bradshawlin6370 [address] [facility] [place] [id number] Albumin/Globulin mass ratio 1.9 {ratio} Normal 1.2-2.2 [facility] Work Phone: Comment on above: PATIENT WAS FASTINGP ERFORMED BY: DEBBIE LabPiotr BradshawYrhbqj2694 [address] [facility] [place] [id number] ALP [Catalytic activity/Vol] 84 U/L Normal 39-117 [facility] Work Phone: Comment on above: PATIENT WAS FASTINGP ERFORMED BY: DEBBIE LabCojean pierre BradshawXnayku4601 [address] [facility] Hospitalblin [place] [id number] ALP enzyme act/vol 84 [iU]/L Normal 39-117 Compre [facility] Internal Medicine Work Phone: Comment on above: PATIENT WAS FASTINGP ERFORMED BY: DEBBIE LabCojean pierre BradshawWmunyq2611 [address] RoadDublin [place] [id number] ALT [Catalytic activity/Vol] 15 U/L Normal 0-44 [facility] Work Phone: Comment on above: PATIENT WAS FASTINGP ERFORMED BY: [facility] Zuyqlz3958 Jenkins RoadDublin [place] [id number] ALT enzyme act/vol 15 [iU]/L Normal 0-44 [facility] Work Phone: Comment on above: PATIENT WAS FASTINGP ERFORMED BY: LabCoMountain View Regional Medical CenterDyarcr9635 [address] RoadDublin [place] [id number] AST [Catalytic activity/Vol] 19 U/L Normal 0-40 [facility] Work Phone: Comment on above: PATIENT WAS FASTINGP ERFORMED BY: LabCoGreystone Park Psychiatric HospitalVjzcjf2150 [address] RoadDublin [place] [id number] AST enzyme act/vol 19 [iU]/L Normal 0-40 [facility] Work Phone: Comment on above: PATIENT WAS FASTINGP ERFORMED BY: LabHelen [facility]6370 [address] RoadDublin [place] [id number] Bilirubin mass conc 0.7 mg/dL Normal 0.0-1.2 Compr ensive Internal Medicine Work Phone: Comment on above: PATIENT WAS FASTINGP ERFORMED BY: LabCoMountain View Regional Medical CenterRpdycr2845 [address] RoadDublin [place] [id number] Calcium mass conc 9.5 mg/dL Normal 8.6-10.2 Compreh ensive Internal Medicine Work Phone: Comment on above: PATIENT WAS FASTINGP ERFORMED BY: LabCo Mdqkza1930 Jenkins RoadDublin [place] [id number] Chloride molar conc 101 mmol/L Normal 96-106 Compr ensive Internal Medicine Work Phone: Comment on above: PATIENT WAS FASTINGP ERFORMED BY: [facility] Raorcy2792 [address] RoadDublin [place] [id number] CO2 molar conc 26 mmol/L Normal 20-29 Comprehens vane [facility] Medicine Work Phone: Comment on above: PATIENT WAS FASTINGP ERFORMED BY: DEBBIE LabCo Nxqafn1616 [address] [facility] [place] [id number] Creatinine mass conc 1.04 mg/dL Normal 0.76-1.27 Comp rehensive Internal Medicine Work Phone: Comment on above: PATIENT WAS FASTINGP ERFORMED BY: DEBBIE LabCo Lscsbz8022 Jenkins RoadCritical Access Hospitalin [place] [id number] GFR/1.73 sq M predicted among blacks CKD-EPI vol rate/area (S/P/Bld) 85 mL/min/1.73 Normal [facility] Work Phone: Comment on above: PATIENT WAS FASTINGP ERFORMED BY: DEBBIE Lab[facility] Zclfhg9271 [address] [facility] [id number] GFR/1.73 sq M predicted among non-blacks CKD-EPI vol rate/area (S/P/Bld) 73 mL/min/1.73 Normal Comprehensiv e Internal Medicine Work Phone: Comment on above: PATIENT WAS FASTINGP ERFORMED BY: DEBBIE [facility]North[facility] Uqsnau5998 [address] [facility] [id number] Globulin Calculated mass conc (S) 2.4 g/dL Normal 1.5-4.5 [facility] Work Phone: Globulin mass conc (S) 2.4 g/dL Normal 1.5-4.5 Co [facility] hospitalensive [facility] Work Phone: Comment on above: PATIENT WAS FASTINGP ERFORMED BY: DEBBIE LabCo Wklzbo6792 [address] [facility] [id number] Glucose mass conc 90 mg/dL Normal 65-99 Compreh ensive Internal Medicine Work Phone: Comment on above: PATIENT WAS FASTINGP ERFORMED BY: DEBBIE [facility] Yrphaz0170 [address] [facility] [id number] Potassium molar conc 4.9 mmol/L Normal 3.5-5.2 Comp rehensive Internal Medicine Work Phone: Comment on above: PATIENT WAS FASTINGP ERFORMED BY: LabCo Ypuwpm8914 [facility] [id number] Protein mass conc 7.0 g/dL Normal 6.0-8.5 Compreh ensive Internal Medicine Work Phone: Comment on above: PATIENT WAS FASTINGP ERFORMED BY: [facility]6370 [facility] [id number] Sodium molar conc 141 mmol/L Normal 134-144 Compreh ensive Internal Medicine Work Phone: Comment on above: PATIENT WAS FASTINGP ERFORMED BY: [facility]6370 [facility] [id number] Urea nitrogen mass conc 22 mg/dL Normal 8-27 [facility] Work Phone: Comment on above: PATIENT WAS FASTINGP ERFORMED BY: [facility]6370 [facility] [id number] Urea nitrogen/Creatinine mass ratio 21 mg/mg Normal 10-24 [facility] Work Phone: Comment on above: PATIENT WAS FASTINGP ERFORMED BY: [facility]6370 [facility] [id number] PSA (PROSTATE SPECIFIC ANTIG EN) (V76.44)Ordered By: Eyeglass Assembler on 04-08-2018 Prostate specific Ag mass conc 2.6 ng/mL Normal 0.0-4.0 [facility] Work Phone: Comment on above: Ciara ECLIA methodol ogy. .According to the [place] [employer], Serum PSA shoulddecrease and remain [...] malignant disease. PATIENT WAS FASTINGP ERFORMED BY: [facility]6370 [facility] [id number] VITAMIN B-12 (CYANOCOBALAMIN ) (94424)Ordered By: Eyeglass Assembler on 04-08-2018 Cobalamin (Vitamin B12) mass conc 446 pg/mL Normal 232-1245 [facility] Work Phone: Comment on above: PATIENT WAS FASTINGP ERFORMED BY: DEBBIE BarriePiotr BradshawKjrpnf0399 [facility] [id number] Office Visiton 12-25-2016 Documentation of current medications (procedure) Done Invalid Interpretation Code [facility] Work Phone: Fall risk assessment No Invalid Interpretation Code [facility] Work Phone: C-REACTIVE PROTEIN (00666)Or dered By: Eyeglass Assembler on 11-24-2016 CRP mass conc 1.2 mg/L Normal 0.0-4.9 Comprehensi Internal Medicine Work Phone: Comment on above: PATIENT NOT FASTINGP ERFORMED BY: DEBBIE Bradshawlin6370 [facility] [id number] CBC, PLATELETS & AUT DIFF (1 0199)Ordered By: Eyeglass Assembler on 11-24-2016 Basophils #/vol (Bld) 0.1 {x10E3/uL} Normal 0.0-0.2 [facility] Work Phone: Comment on above: PATIENT NOT FASTINGP ERFORMED BY: DEBBIE [facility] Nljtqu3183 [facility] [id number] Basophils (Bld) [#/Vol] 0.1 10*3/uL Normal 0.0-0.2 [facility] Work Phone: Comment on above: PATIENT NOT FASTINGP ERFORMED BY: DEBBIE LabCoGreystone Park Psychiatric HospitalHfhwlg6474 [facility] [id number] Basophils Auto #/vol (Bld) 0.1 {x10E3/uL} Normal 0.0-0.2 [facility] Work Phone: Basophils/100 WBC (Bld) 1 % Normal [facility] Work Phone: Comment on above: PATIENT NOT FASTINGP ERFORMED BY: DEBBIE [facility] Vfsrfr3513 [facility] [id number] Basophils/100 WBC Auto (Bld) 1 % Normal [facility] Work Phone: Eosinophils #/vol (Bld) 0.1 {x10E3/uL} Normal 0.0-0.4 [facility] Work Phone: Comment on above: PATIENT NOT FASTINGP ERFORMED BY: DEBBIE Bradshawlin6370 [facility] [id number] Eosinophils (Bld) [#/Vol] 0.1 10*3/uL Normal 0.0-0.4 [facility] Work Phone: Comment on above: PATIENT NOT FASTINGP ERFORMED BY: LabMary Ville [id number] [facility] [id number] Eosinophils Auto #/vol (Bld) 0.1 {x10E3/uL} Normal 0.0-0.4 [facility] Work Phone: Eosinophils/100 WBC (Bld) 2 % Normal [facility] Work Phone: Comment on above: PATIENT NOT FASTINGP ERFORMED BY: [facility]North[facility] Center Rpbhlr0735 [facility] [id number] Eosinophils/100 WBC Auto (Bld) 2 % Normal [facility] Work Phone: Erythrocyte distribution width Auto Ratio (RBC) 13.2 % Normal 12.3-15.4 [facility] Work Phone: Erythrocyte distribution width Ratio (RBC) 13.2 % Normal 12.3-15.4 [facility] Work Phone: Comment on above: PATIENT NOT FASTINGP ERFORMED BY: LabMary [place] [id number] [facility] [id number] Hematocrit Auto Volume Fraction (Bld) 45.1 % Normal 37.5-51.0 [facility] Work Phone: Hematocrit Volume Fraction (Bld) 45.1 % Normal 37.5-51.0 [facility] Work Phone: Comment on above: PATIENT NOT FASTINGP ERFORMED BY: DEBBIE LabCoGreystone Park Psychiatric HospitalHuivxm2457 [facility] [id number] Hemoglobin mass conc (Bld) 15.6 g/dL Normal 12.6-17.7 [facility] Work Phone: Comment on above: PATIENT NOT FASTINGP ERFORMED BY: LabCojean pierre BradshawQhnyxb4521 [address] [facility] [id number] Immature granulocytes #/vol (Bld) 0.0 {x10E3/uL} Normal 0.0-0.1 [facility] Work Phone: Comment on above: PATIENT NOT FASTINGP ERFORMED BY: LabCoAdrienne Ville [id number] Jenkins RoadUNC Health Nash [id number] Immature granulocytes (Bld) [#/Vol] 0.0 10*3/uL Normal 0.0-0.1 [facility] Work Phone: Comment on above: PATIENT NOT FASTINGP ERFORMED BY: [facility]North[facility] Center Imuytn2169 [address] [facility] [id number] Immature granulocytes/100 WBC (Bld) 0 % Normal [facility] Work Phone: Comment on above: PATIENT NOT FASTINGP ERFORMED BY: BarrieMary Ville [id number] [address] [facility] [id number] Lymphocytes #/vol (Bld) 1.0 {x10E3/uL} Normal 0.7-3.1 [facility] Work Phone: Comment on above: PATIENT NOT FASTINGP ERFORMED BY: BarrieMary Ville [id number] [address] [facility] [id number] Lymphocytes (Bld) [#/Vol] 1.0 10*3/uL Normal 0.7-3.1 [facility] Work Phone: Comment on above: PATIENT NOT FASTINGP ERFORMED BY: LabCoAdrienne [place] [id number] [address] [facility] [id number] Lymphocytes Auto #/vol (Bld) 1.0 {x10E3/uL} Normal 0.7-3.1 [facility] Work Phone: Lymphocytes/100 WBC (Bld) 22 % Normal [facility] Work Phone: Comment on above: PATIENT NOT FASTINGP ERFORMED BY: LabCoAdrienne Ville [id number] [facility] [id number] Lymphocytes/100 WBC Auto (Bld) 22 % Normal [facility] Work Phone: MCH Auto Entitic mass (RBC) 31.9 pg Normal 26.6-33.0 [facility] Work Phone: MCH Entitic mass (RBC) 31.9 pg Normal 26.6-33.0 [facility] Work Phone: Comment on above: PATIENT NOT FASTINGP ERFORMED BY: DEBBIE Danielle [place] [id number] [facility] [id number] MCHC Auto mass conc (RBC) 34.6 g/dL Normal 31.5-35.7 [facility] Work Phone: MCHC mass conc (RBC) 34.6 g/dL Normal 31.5-35.7 [facility] Internal Medicine Work Phone: Comment on above: PATIENT NOT FASTINGP ERFORMED BY: LabMary Ville [id number] [facility] [id number] MCV Auto Entitic volume (RBC) 92 fL Normal 79-97 [facility] Work Phone: MCV Entitic volume (RBC) 92 fL Normal 79-97 [facility] Work Phone: Comment on above: PATIENT NOT FASTINGP ERFORMED BY: DEBBIE [facility]Hel[facility]6370 [facility] [id number] Monocytes #/vol (Bld) 0.5 {x10E3/uL} Normal 0.1-0.9 [facility] Work Phone: Comment on above: PATIENT NOT FASTINGP ERFORMED BY: [facility]Helen [facility]6370 [facility] [id number] Monocytes (Bld) [#/Vol] 0.5 10*3/uL Normal 0.1-0.9 [facility] Work Phone: Comment on above: PATIENT NOT FASTINGP ERFORMED BY: LabMary Ville [id number] [facility] [id number] Monocytes Auto #/vol (Bld) 0.5 {x10E3/uL} Normal 0.1-0.9 [facility] Work Phone: Monocytes/100 WBC (Bld) 12 % Normal [facility] Work Phone: Comment on above: PATIENT NOT FASTINGP ERFORMED BY: DEBBIE [facility] [id number] Jenkins RoadDublin [place] [id number] Monocytes/100 WBC Auto (Bld) 12 % Normal [facility] Work Phone: Neutrophils #/vol (Bld) 2.8 {x10E3/uL} Normal 1.4-7.0 [facility] Work Phone: Comment on above: PATIENT NOT FASTINGP ERFORMED BY: DEBBIE [facility] [id number] Jenkins RoadDublin [place] [id number] Neutrophils (Bld) [#/Vol] 2.8 10*3/uL Normal 1.4-7.0 [facility] Work Phone: Comment on above: PATIENT NOT FASTINGP ERFORMED BY: CB [facility] [id number] Jenkins RoadDublin [place] [id number] Neutrophils Auto #/vol (Bld) 2.8 {x10E3/uL} Normal 1.4-7.0 [facility] Work Phone: Neutrophils/100 WBC (Bld) 63 % Normal [facility] Work Phone: Comment on above: PATIENT NOT FASTINGP ERFORMED BY: CB [facility] Pprper0035 [address] RoadCritical Access Hospitalin [place] [id number] Neutrophils/100 WBC Auto (Bld) 63 % Normal [facility] Work Phone: Platelets #/vol (Bld) 220 {x10E3/uL} Normal 150-379 [facility] Work Phone: Comment on above: PATIENT NOT FASTINGP ERFORMED BY: CB [facility] [id number] Jenkins RoadDublin [place] [id number] Platelets (Bld) [#/Vol] 220 10*3/uL Normal 150-379 [facility] Work Phone: Comment on above: PATIENT NOT FASTINGP ERFORMED BY: CB [facility] [id number] [facility] [place] [id number] Platelets Auto #/vol (Bld) 220 {x10E3/uL} Normal 150-379 [facility] Work Phone: RBC #/vol (Bld) 4.89 {x10E6/uL} Normal 4.14-5.80 [facility] Internal Medicine Work Phone: Comment on above: PATIENT NOT FASTINGP ERFORMED BY: CB [facility] [id number] [address] [facility] [place] [id number] RBC (Bld) [#/Vol] 4.89 10*6/uL Normal 4.14-5.80 [facility] Internal Medicine Work Phone: Comment on above: PATIENT NOT FASTINGP ERFORMED BY: CB LabCoGreystone Park Psychiatric HospitalTcklif30[address] [facility] [id number] RBC Auto #/vol (Bld) 4.89 {x10E6/uL} Normal 4.14-5.80 [facility] Internal Medicine Work Phone: WBC #/vol (Bld) 4.4 {x10E3/uL} Normal 3.4-10.8 [facility] Internal Medicine Work Phone: Comment on above: PATIENT NOT FASTINGP ERFORMED BY: [facility] [id number] [facility] [id number] WBC (Bld) [#/Vol] 4.4 10*3/uL Normal 3.4-10.8 [facility] Internal Medicine Work Phone: Comment on above: PATIENT NOT FASTINGP ERFORMED BY: CB [facility] [id number] [facility] [place] [id number] WBC Auto #/vol (Bld) 4.4 {x10E3/uL} Normal 3.4-10.8 [facility] Internal Medicine Work Phone: SED RATE ERYTHROCYTE ([id number]) Ordered By: Eyeglass Assembler on 11-24-2016 ESR Velocity (Bld) 2 mm/h Normal 0-30 [facility] Internal Medicine Work Phone: Comment on above: PATIENT NOT FASTINGP ERFORMED BY: DiscretixGreystone Park Psychiatric HospitalCqzamj7704 [facility] [id number] Office Visiton 05-27-2016 Tobacco use CPHS Never smoker Invalid Interpretation Code [facility] Work Phone: PSA (PROSTATE SPECIFIC ANTIG EN) (V76.44)Ordered By: Eyeglass Assembler on 04-03-2016 Prostate specific Ag mass conc 3.4 ng/mL Normal 0.0-4.0 [facility] Work Phone: Comment on above: Ciara ECLIA methodol ogy. .According to the [place] [employer], Serum PSA shoulddecrease and remain [...] malignant disease. PATIENT WAS FASTINGP ERFORMED BY: [employer] [id number] [facility] [id number] Information: [id number] Lab Report: Lipid Profileon 11-22-2015 Cholesterol 139 mg/dL Normal [facility] Work Phone: Comment on above: <200 mg/dL Desirable 200-240 mg/dL Borderline >240 mg/dL High Risk HDL Cholesterol 58 mg/dL Normal [facility] Work Phone: Comment on above: Reference Range HDL <40 mg/dL Low HDL Cholesterol HDL >or= 60 mg/dL High HDL Cholesterol Triglyceride 69 mg/dL Normal [facility] Work Phone: Comment on above: Serum Triglycerides Reference Interval Normal <150 mg/dL Borderline high 150 - 199 mg/dL High 200 - 499 mg/dL Very High > or = 500 mg/dL LDL Cholesterol 67 mg/dL Invalid Interpretation Code 0-130 [facility] Work Phone: very low density lipoproteins 14 mg/dL Invalid Interpretation Code 5-40 [facility] Work Phone: Lab Report: Liver Profileon 11-22-2015 Alanine aminotransferase (ALT) 33 U/L Normal 12-78 [facility] Work Phone: Albumin 4.3 g/dL Normal 3.4-5.0 [facility] Work Phone: Alkaline phosphatase (ALP) 82 U/L Normal 50-136 [facility] Work Phone: Aspartate aminotransferase (AST) 25 U/L Normal 15-37 [facility] Work Phone: Bilirubin (direct) 0.24 mg/dL Normal 0.00-0.30 [facility] Work Phone: Bilirubin (total) 1.00 mg/dL Normal 0.20-1.00 [facility] Work Phone: Globulin 3.0 g/dL Normal 2.3-3.5 [facility] Work Phone: Protein 7.3 g/dL Normal 6.4-8.2 [facility] Work Phone: Lipid ProfileOrdered By: Nilda tem Automatic Paint Sprayer Operator on 11-22-2015 Cholesterol in LDL mass conc 67 mg/dL Normal 0-130 [facility] Work Phone: Cholesterol in VLDL mass conc 14 mg/dL Normal 5-40 [facility] Work Phone: Clinical Lists Update: Prelo director maternal child 10-22-2015 Left ventricular Ejection fraction 60 % Invalid Interpretation Code [facility] Work Phone: Replaced Document: Kings Krishnaon 03-13-2015 electrocardiogram interpretation Sinus Rhythm -First degree A-V block Puma = 268-RSR(V1) -nondiagnostic. BORDERLINE RHYTHM Invalid Interpretation Code [facility] Work Phone: GE use only - for LinkLogic import when terms are not otherwise specified 398 ms Invalid Interpretation Code [facility] Work Phone: P wave axis, electrocardiogram 58 deg Invalid Interpretation Code [facility] Work Phone: MS interval, electrocardiogram 268 ms Invalid Interpretation Code [facility] Work Phone: Pulse (Heart Rate) 60 /min Invalid Interpretation Code [facility] Work Phone: QRS axis, electrocardiogram 4 deg Invalid Interpretation Code [facility] Work Phone: QRS duration, electrocardiogram 84 ms Invalid Interpretation Code [facility] Work Phone: QT interval, electrocardiogram new path ms Invalid Interpretation Code [facility] Work Phone: T wave axis, electrocardiogram 46 deg Invalid Interpretation Code [facility] Work Phone: Office Visiton 08-29-2014 cardiac risk group C Invalid Interpretation Code [facility] Work Phone: General cardiovascular disease 10Y risk [#] Timbo.D'Agostciro N/A Invalid Interpretation Code [facility] Work Phone: CKMBOrdered By: System Manag er on 02-12-2014 CK.MB mass conc 1.6 ng/mL Normal 0.0-5.0 Comprehen [facility] Internal Medicine Work Phone: Comment on above: CK-MB and RI Interpr etation MB Relative IndexNon-AMI 5 5 > 4 CKMB 53 U/L Normal 39-308 [facility] Work Phone: DDIMQOrdered By: System Laurel ksyla on 02-12-2014 DDIMQ 0.29 {FEU/ug/m} Normal 0.27-0.49 [facility] Work Phone: Comment on above: NORMAL D-Dimer level (<0.50) indicates no DVT or PE. MYOSOrdered By: System Manag er on 02-12-2014 MYOS 37 ng/mL Normal 28-72 [facility] Work Phone: Comment on above: Performed at: [address] [id number] Director: Franc Dick PhD, Phone: [phone] TROPOrdered By: System Manag er on 02-12-2014 TROP < 0.02 Normal [facility] Work Phone: Comment on above: TROPONIN-I EXPECTED VALUES <0.05 NEGATIVE0.06 - 0.59 AT RISK OF OR> OR = 0.60 SUGGEST OR CBCDOrdered By: System Manag er on 12-19-2013 [...] #/vol (Bld) 4.75 {M/mm3} Normal 4.6-6.2 Co [facility] Work Phone: WBC Auto #/vol (Bld) 4.9 10*3/uL Normal 4.4-11.0 Com prehensive [facility] Work Phone: CBCD 14.8 % Abnormal 0-10 [facility] Work Phone: CBCD 62.2 % Normal 47-70 [facility] Work Phone: CBCD 2.3 % Normal 0-5 [facility] Work Phone: CBCD 42.5 fL Normal 35.1-43.9 [facility] Work Phone: CBCD 0.95 {X10_3/ul} Normal 0.83-4.51 [facility] Internal Medicine Work Phone: CBCD 3.0 {X10_3/uL} Normal 2.0-7.7 [facility] Internal Medicine Work Phone: CBCD 19.5 % Normal 19-41 [facility] Internal Medicine Work Phone: CBCD 0.200 % Normal 0.0-0.9 [facility] Internal Medicine Work Phone: Comment on above: IG% - Immature Granu locytes (promyelocytes, myelocytes andmetamyelocytes) > 1% indicates that a LEFT SHIFT is Present. CBCD 1.0 % Normal 0-1 [facility] Internal Medicine Work Phone: CMPOrdered By: System Manage r on 12-19-2013 Albumin mass conc 4.1 g/dL Normal 3.4-5.0 [facility] Internal Medicine Work Phone: Albumin/Globulin mass ratio 1.5 {RATIO} Normal 0.9-2.4 [facility] Internal Medicine Work Phone: ALP enzyme act/vol 80 U/L Normal 45-117 [facility] Internal Medicine Work Phone: ALT enzyme act/vol 20 U/L Normal 12-78 [facility] Internal [facility] Work Phone: AST enzyme act/vol 18 U/L Normal 15-37 [facility] Internal Medicine Work Phone: Bilirubin mass conc 0.70 mg/dL Normal 0.00-1.00 [facility] Internal Medicine Work Phone: Calcium mass conc 9.3 mg/dL Normal 8.5-10.1 [facility] Internal Medicine Work Phone: Chloride molar conc 101 mmol/L Normal 98-107 [facility] Internal Medicine Work Phone: CO2 molar conc 30.0 mmol/L Normal 21.0-32.0 [facility] Internal Medicine Work Phone: Creatinine mass conc 1.0 mg/dL Normal 0.8-1.3 Comp rehensive [facility] Work Phone: GFR/1.73 sq M [...] med using the TPSA assay method for the[employer] chemistry system. Values obtained with differentassay methods cannot be used interchangably.When changing PSA assays in the course of monitoring apatient, additional sequential testing should be carriedout to confirm baseline values. Lab Report: BMPon 09-04-2013 Calcium 9.3 mg/dL Normal 8.5-10.1 [facility] Work Phone: Chloride 103 mmol/L Normal 98-107 [facility] Work Phone: Creatinine 0.9 mg/dL Normal 0.8-1.3 [facility] Work Phone: Glucose 94 mg/dL Normal 70-110 [facility] Work Phone: Potassium 4.3 mmol/L Normal 3.5-5.1 [facility] Work Phone: Sodium 138 mmol/L Normal 136-145 [facility] Work Phone: Urea nitrogen 19 mg/dL High 7-18 [facility] Work Phone: Lab Report: CBCDon 4 Erythrocytes (RBC) 4.81 10*6/uL Normal 4.6-6.[address] [facility] [address] [facility] Work Phone: Hematocrit (HCT) 44.6 % Normal 40-54 [facility] Work Phone: Hemoglobin (HGB) 15.7 g/dL Normal 13.0-16.5 [facility] Work Phone: Platelets 216 10*3/mm3 Normal 150-450 [facility] Work Phone: WBC (Leukocytes) 6.5 10*3/uL Normal 4.4-11.0 [facility] Work Phone: Office Visiton 08-23-2013 Alcoholism counseling (procedure) no Invalid Interpretation Code [facility] Work Phone: Replaced Document: Kings Fonseca Observationson 12-11-2011 Pulse (Heart Rate) 382 ms Invalid Interpretation Code [facility] Work Phone: Lipase ([id number])Ordered By: Sy stem Automatic Paint Sprayer Operator on 05-05-2010 Lipase enzyme act/vol 49 U/L Normal 0-59 [facility] Work Phone: Comment on above: PATIENT NOT FASTINGP ERFORMED BY: DEBBIE [facility] [id number] Gregory MistryUNC Health Nash [id number] Information: [id number] PSPUN MYOCARD PERF SPECT REST/STRE SSOrdered By: Eyeglass Assembler on 04-15-2007 MYOCARD PERF SPECT REST/STRESS See Note Normal [facility] Work Phone: Comment on above: Exam Number: [id number] MYOCARDIAL PERFUSION SCAN TECHNIQUEThe patient was [...] MICHAEL HDZ M.D. CBCD,SMEAR DIFFOrdered By: Kenji muniz Automatic Paint Sprayer Operator on 03-22-2007 Eosinophils/100 WBC Auto (Bld) 2 % Normal 0-5 [facility] Work Phone: Erythrocyte distribution width Auto Ratio (RBC) 12.9 % Normal 11.6-14.6 [facility] Work Phone: Hematocrit Auto Volume Fraction (Bld) 47.8 % Normal 40-54 [facility] Work Phone: Hemoglobin mass conc (Bld) 16.1 g/dL Normal 14.0-18.0 [facility] Internal [facility] Work Phone: Lymphocytes/100 WBC Auto (Bld) 20 % Normal 19-41 [facility] Internal [facility] Work Phone: MCH Auto Entitic mass (RBC) 31.6 pg Normal 27.0-32.0 [facility] Internal [facility] Work Phone: MCHC Auto mass conc (RBC) 33.6 g/dL Normal 32-36 [facility] Work Phone: MCV Auto Entitic volume (RBC) 94.1 fL Abnormal 80-94 [facility] Internal [facility] Work Phone: Monocytes/100 WBC Auto (Bld) 3 % Normal 0-10 [facility] Internal Medicine Work Phone: Platelets Auto #/vol (Bld) 235 10*3/uL Normal 150-450 [facility] Internal Medicine Work Phone: RBC Auto #/vol (Bld) 5.08 {M/mm3} Normal 4.6-6.2 [facility] Work Phone: WBC Auto #/vol (Bld) 6.0 10*3/uL Normal 4.4-11.0 [facility] Internal Medicine Work Phone: CBCD,SMEAR DIFF SeeNote Normal [facility] Work Phone: Comment on above: Result: NORM C&C Result: ADEQUATE CBCD,SMEAR DIFF 100 1 Normal [facility] Work Phone: CBCD,SMEAR DIFF 75 % Abnormal 47-70 [facility] Work Phone: COMP METABOLICOrdered By: Sy stem Automatic Paint Sprayer Operator on 03-22-2007 Albumin mass conc 4.2 g/dL Normal 3.4-5.0 Compreh [facility] Internal Medicine Work Phone: Albumin/Globulin mass ratio 1.4 {RATIO} Normal 0.9-2.4 [facility] Internal Medicine Work Phone: ALP enzyme act/vol 82 U/L Normal 50-136 Compre [facility] Internal Medicine Work Phone: ALT enzyme act/vol 29 [iU]/L Abnormal 30-65 [facility] Internal Medicine Work Phone: Anion gap 3 molar conc 8 mmol/L Normal 5-15 [facility] Work Phone: AST enzyme act/vol 12 U/L Abnormal 15-37 [facility] Work Phone: Bilirubin mass conc 0.64 mg/dL Normal 0.00-1.00 Compr ensive [facility] Work Phone: Calcium mass conc 9.0 mg/dL Normal 8.5-10.1 Compreh ensive Internal Medicine Work Phone: Chloride molar conc 100 mmol/L Normal 98-107 Compr [facility] Internal Medicine Work Phone: CO2 molar conc 31.1 mmol/L Normal 21.0-32.0 Comprehen [facility] Internal Medicine Work Phone: Comment on above: Please Note Refer ence Interval Change Creatinine mass conc 1.1 mg/dL Normal 0.8-1.3 [facility] Work Phone: Globulin Calculated mass conc (S) 3.1 g/dL Normal 2.7-4.2 [facility] Internal Medicine Work Phone: Comment on above: Please Note Refer ence Interval Change Glucose mass conc 78 mg/dL Normal 70-110 Compreh ensive Internal Medicine Work Phone: Potassium molar conc 4.7 mmol/L Normal 3.5-5.1 Comp rehensive [facility] Work Phone: Protein mass conc 7.3 g/dL Normal 6.4-8.2 Compreh ensive [facility] Work Phone: Sodium molar conc 139 mmol/L Normal 136-145 Compreh ensive [facility] Work Phone: Urea nitrogen mass conc 18 mg/dL Normal 7-18 [facility] Work Phone: Urea [...] Phone: Cholesterol mass conc 129 mg/dL Normal [facility] Work Phone: Comment on above: <200 mg/dL Desirable 200-240 mg/dL Borderline >240 mg/dL High Risk Triglyceride mass conc 59 mg/dL Normal [facility] Work Phone: Comment on above: Serum Triglycerides Reference Interval Normal <150 mg/dL Borderline high 150 - 199 mg/dL High 200 - 499 mg/dL Very High > or = 500 mg/dL PSA,TOT SCREENOrdered By: Uniphore stem Automatic Paint Sprayer Operator on 03-08-2007 Prostate specific Ag mass conc 1.86 ng/mL Normal 0.00-4.00 [facility] Work Phone: Comment on above: This test was perfor med using the TPSA method for theDimension chemistry system.Values obtained with different assay methods cannot be usedinterchangably.When changing PSA assays in the course of monitoring apatient, additionaly sequential testing should be carriedout to confirm baseline values. Vital Signs Date Time Vital Sign Value Performing Clinician Facility 02-14-2025 13:25-0400 Body height 180.[address] Connie Wilson DO Work Phone: [facility] 02-14-2025 13:25-0400 Body mass index (BMI) [Ratio] 24.8 kg/m2 Dr. Connie Wilson DO Work Phone: [facility] 02-14-2025 13:25-0400 Body weight 80.[address] Connie Wilson DO Work Phone: [facility] 02-14-2025 13:25-0400 Diastolic blood pressure 67 mm[Hg] Dr. Connie Wilson DO Work Phone: [facility] 02-14-2025 13:25-0400 Heart rate 69 /min Dr. Connie Wilson DO Work Phone: [facility] 02-14-2025 13:25-0400 Respiratory rate 16 /min Dr. Connie Wilson DO Work Phone: [facility] 02-14-2025 13:25-0400 Systolic blood pressure 101 mm[Hg] Dr. Connie Wilson DO Work Phone: [facility] 02-10-2025 13:34-0400 Body temperature 98.3 [degF] Dr. Connie Wilson DO Work Phone: [facility] 02-10-2025 13:34-0400 Diastolic blood pressure 104 mm[Hg] Dr. Connie Wilson DO Work Phone: [facility] 02-10-2025 13:34-0400 Heart rate 63 /min Dr. Connie Wilson DO Work Phone: [facility] 02-10-2025 13:34-0400 Respiratory rate 16 /min Dr. Connie Wilson DO Work Phone: [facility] 02-10-2025 13:34-0400 SaO2% (BldA) [Mass fraction] 96 % Dr. Connie Wilson DO Work Phone: [facility] 02-10-2025 13:34-0400 Systolic blood pressure 139 mm[Hg] Dr. Connie Wilson DO Work Phone: [facility] 02-10-2025 08:22-0400 Body height 180.[address] Connie Wilson DO Work Phone: [facility] 02-10-2025 08:22-0400 Body mass index (BMI) [Ratio] 24.7 kg/m2 Dr. Connie Wilson DO Work Phone: [facility] 02-10-2025 08:22-0400 Body weight 80.[address] Connie Wilson DO Work Phone: [facility] 03-29-2023 13:20-0400 Body height 180.34 cm Kimmie Gifford [facility]; [facility] Work Phone: 03-29-2023 13:20-0400 Body mass index (BMI) [Ratio] 24.13 kg/m2 Kimmie Gifford [facility]; [facility] Work Phone: 03-29-2023 13:20-0400 Body surface area Derived from formula 1.98 m2 Kimmie Gifford [facility]; [facility] Work Phone: 03-29-2023 13:20-0400 Body temperature 98 [degF] Kimmie Gifford [facility]; [facility] Work Phone: Comment on above: Method: Thermal Scan 03-29-2023 13:20-0400 Body weight 78.47 kg Kimmie Gifford [facility]; [facility] Work Phone: 03-29-2023 13:20-0400 Diastolic blood pressure 60 mm[Hg] Kimmie Gifford [facility]; [facility] Work Phone: Comment on above: Patient Position: Sitting; Cuff Location : Left Arm; Cuff Size: Standard 03-29-2023 13:20-0400 Heart rate 55 /min Kimmie Gifford [facility]; [facility] Work Phone: Comment on above: Pattern: Regular 03-29-2023 13:20-0400 Respiratory rate 16 /min Kimmie Gifford [facility]; [facility] Work Phone: Comment on above: Pattern: Unlabored 03-29-2023 13:20-0400 SaO2% (BldA) [Mass fraction] 95 % Kimmie Gifford [facility]; [facility] Work Phone: Comment on above: Room air 03-29-2023 13:20-0400 Systolic blood pressure 118 mm[Hg] Kimmie Gifford [facility]; [facility] Work Phone: Comment on above: Patient Position: Sitting; Cuff Location : Left Arm; Cuff Size: Standard 04-06-2022 08:15-0400 Body height 180.34 cm Kimmie Gifford [facility]; [facility] Work Phone: 04-06-2022 08:15-0400 Body mass index (BMI) [Ratio] 24.13 kg/m2 Kimmie Gifford [facility]; [facility] Work Phone: 04-06-2022 08:15-0400 Body surface area Derived from formula 1.98 m2 Kimmie Gifford [facility]; [facility] Work Phone: 04-06-2022 08:15-0400 Body temperature 96.9 [degF] Kimmie Gifford [facility]; [facility] Work Phone: Comment on above: Method: Thermal Scan 04-06-2022 08:15-0400 Body weight 78.47 kg Kimmie Perezdayton va medical centermikel [facility]; [facility] Work Phone: 04-06-2022 08:15-0400 Diastolic blood pressure 62 mm[Hg] [facility]; [facility] Work Phone: Comment on above: Patient Position: Sitting; Cuff Location : Left Arm; Cuff Size: Standard 04-06-2022 08:15-0400 Heart rate 54 /min Kimmielexx Gifford [facility]; [facility] Work Phone: Comment on above: Pattern: Regular 04-06-2022 08:15-0400 Respiratory rate 16 /min Kimmie Gifford [facility]; [facility] Work Phone: Comment on above: Pattern: Unlabored 04-06-2022 08:15-0400 Systolic blood pressure 102 mm[Hg] Kimmie Gifford [facility]; [facility] Work Phone: Comment on above: Patient Position: Sitting; Cuff Location : Left Arm; Cuff Size: Standard 02-25-2022 08:20-0400 Diastolic blood pressure 62 mm[Hg] Dr. Connie Wilson Work Phone: [facility] Work Phone: 02-25-2022 08:20-0400 Heart rate 58 /min Dr. Connie Wilson Work Phone: [facility] Work Phone: 02-25-2022 08:20-0400 Respiratory rate 16 /min Dr. Connie Wilson Work Phone: [facility] Work Phone: 02-25-2022 08:20-0400 SaO2% (BldA) [Mass fraction] 99 % Dr. Connie Wilson Work Phone: [facility] Work Phone: 02-25-2022 08:20-0400 Systolic blood pressure 97 mm[Hg] Dr. Connie Wilson Work Phone: [facility] Work Phone: 02-25-2022 08:00-0400 Body height 180.[address] Connie Wilson Work Phone: [facility] Work Phone: 02-25-2022 08:00-0400 Body mass index (BMI) [Ratio] 24.1 kg/m2 Dr. Connie Wilson Work Phone: [facility] Work Phone: 02-25-2022 08:00-0400 Body weight 78.[address] Connie Wilson Work Phone: [facility] Work Phone: 02-19-2022 10:07-0400 Body mass index (BMI) [Ratio] 24.1 kg/m2 Dr. Sandoval Fast Work Phone: [facility] Work Phone: 02-19-2022 10:07-0400 Body weight 78.[address] Connie Wilson Work Phone: [facility] Work Phone: 02-19-2022 10:07-0400 Diastolic blood pressure 62 mm[Hg] Dr. Connie Wilson Work Phone: [facility] Work Phone: 02-19-2022 10:07-0400 Heart rate 56 /min Dr. Connie Wilsno Work Phone: [facility] Work Phone: 02-19-2022 10:07-0400 Respiratory rate 16 /min Dr. Connie Wilson Work Phone: [facility] Work Phone: 02-19-2022 10:07-0400 Systolic blood pressure 100 mm[Hg] Dr. Connie Wilson Work Phone: [facility] Work Phone: 04-01-2021 08:50-0400 Body height 180.34 cm Kimmie Gifford [facility]; [facility] Work Phone: 04-01-2021 08:50-0400 Body mass index (BMI) [Ratio] 23.29 kg/m2 Kimmie Gifford [facility]; [facility] Work Phone: 04-01-2021 08:50-0400 Body surface area Derived from formula 1.95 m2 Kimmie Gifford [facility]; [facility] Work Phone: 04-01-2021 08:50-0400 Body temperature 97.2 [degF] Kimmie Gifford [facility]; [facility] Work Phone: Comment on above: Method: Thermal Scan 04-01-2021 08:50-0400 Body weight 75.75 kg Kimmie Gifford [facility]; [facility] Work Phone: 04-01-2021 08:50-0400 Diastolic blood pressure 62 mm[Hg] Kimmie Balta [facility]; [facility] Work Phone: Comment on above: Patient Position: Sitting; Cuff Location : Left Arm; Cuff Size: Standard 04-01-2021 08:50-0400 Heart rate 68 /min Kimmielexx Gifford [facility]; [facility] Work Phone: Comment on above: Pattern: Regular 04-01-2021 08:50-0400 Respiratory rate 16 /min Kimmielexx Gifford [facility]; [facility] Work Phone: Comment on above: Pattern: Unlabored 04-01-2021 08:50-0400 Systolic blood pressure 116 mm[Hg] Kimmie Gifford [facility]; [facility] Work Phone: Comment on above: Patient Position: Sitting; Cuff Location : Left Arm; Cuff Size: Standard 03-11-2021 09:21-0400 Body height 180.34 cm [facility]; [facility] Work Phone: 03-11-2021 09:21-0400 Body mass index (BMI) [Ratio] 23.15 kg/m2 [facility]; [facility] Work Phone: 03-11-2021 09:21-0400 Body surface area Derived from formula 1.95 m2 [facility]; [facility] Work Phone: 03-11-2021 09:21-0400 Body weight 75.3 kg [facility]; [facility] Work Phone: 03-11-2021 09:21-0400 Diastolic blood pressure 58 mm[Hg] [facility]; [facility] Work Phone: Comment on above: Patient Position: Sitting; Cuff Location : Left Arm; Cuff Size: Standard 03-11-2021 09:21-0400 Heart rate 52 /min Kimmie Gifford [facility] Internal Medicine; [facility] Work Phone: Comment on above: Pattern: Regular 03-11-2021 09:21-0400 Respiratory rate 16 /min Kimmie Gifford [facility] Internal Medicine; [facility] Work Phone: Comment on above: Pattern: Unlabored 03-11-2021 09:21-0400 Systolic blood pressure 98 mm[Hg] Kimmie Gifford [facility] Internal Medicine; [facility] Work Phone: Comment on above: Patient Position: Sitting; Cuff Location : Left Arm; Cuff Size: Standard 04-09-2020 11:00-0400 BMI (Body Mass Index) 23.15 kg/m2 Kimmie Gifford [facility] Work Phone: 04-09-2020 11:00-0400 Body Temperature 96.9 [degF] Kimmie Gifford [facility] Internal Medicine Work Phone: Comment on above: Method: Thermal Scan 04-09-2020 11:00-0400 Body weight 75.3 kg Kimmie Gifford [facility] Work Phone: 04-09-2020 11:00-0400 BP Diastolic 58 mm[Hg] Kimmie Gifford [facility] Work Phone: Comment on above: Patient Position: Sitting; Cuff Location : Left Arm; Cuff Size: Standard 04-09-2020 11:00-0400 BP Systolic 98 mm[Hg] Kimmie Gifford [facility] Internal Medicine Work Phone: Comment on above: Patient Position: Sitting; Cuff Location : Left Arm; Cuff Size: Standard 04-09-2020 11:00-0400 BSA (Body Surface Area) 1.95 m2 Kimmie Gifford [facility] Work Phone: 04-09-2020 11:00-0400 Height 180.34 cm Kimmie Gifford [facility] Work Phone: 04-09-2020 11:00-0400 Pulse (Heart Rate) 61 /min Kimmie Gifford [facility] Work Phone: Comment on above: Pattern: Regular 04-09-2020 11:00-0400 Pulse Oximetry 95 % Connie Fast [facility] Work Phone: Comment on above: Room air 04-09-2020 11:00-0400 Respiratory Rate 16 /min Kimmie Gifford [facility] Work Phone: Comment on above: Pattern: Unlabored 04-09-2020 11:00-0400 SaO2% (BldA) [Mass fraction] 95 % Kimmie Gifford [facility]; [facility] [...] BMI (Body Mass Index) 24.97 kg/m2 Radha Torres LPN [facility] Internal Medicine Work Phone: 12-01-2019 09:39-0400 Body Temperature 97.7 [degF] Radha Devinrb [employer] [facility] Internal Medicine Work Phone: 12-01-2019 09:39-0400 Body weight 78.93 kg Radha Slarb [employer] [facility] Internal Medicine Work Phone: 12-01-2019 09:39-0400 BP Diastolic 64 mm[Hg] Radha Slarb [employer] [facility] Internal Medicine Work Phone: Comment on above: Patient Position: Sitting; Cuff Location : Left Arm; Cuff Size: Standard 12-01-2019 09:39-0400 BP Systolic 108 mm[Hg] Radha Slarb [employer] [facility] Internal Medicine Work Phone: Comment on above: Patient Position: Sitting; Cuff Location : Left Arm; Cuff Size: Standard 12-01-2019 09:39-0400 BSA (Body Surface Area) 1.97 m2 Radha Torres LPN [facility] Internal Medicine Work Phone: 12-01-2019 09:39-0400 Height 177.8 cm Radha Torres LPN [facility] Internal Medicine Work Phone: 12-01-2019 09:39-0400 Pulse (Heart Rate) 62 /min Radha Torres LPN [facility] Work Phone: Comment on above: Pattern: Regular 12-01-2019 09:39-0400 Pulse Oximetry 99 % Connie Fermin [facility] Internal Medicine Work Phone: Comment on above: Room air 12-01-2019 09:39-0400 Respiratory Rate 16 /min Radha Torres LPN [facility] Internal Medicine Work Phone: Comment on above: Pattern: Unlabored 12-01-2019 09:39-0400 SaO2% (BldA) [Mass fraction] 99 % [facility] Work Phone: Comment on above: Room air 03-21-2019 09:47-0400 BMI (Body Mass Index) 25.25 kg/m2 Kimmie Gifford [facility] Internal Medicine Work Phone: 03-21-2019 09:47-0400 Body Temperature 97.4 [degF] Kimmie Gifford [facility] Internal Medicine Work Phone: Comment on above: Method: Temporal 03-21-2019 09:47-0400 Body weight 79.83 kg Kimmie Gifford [facility] Internal Medicine Work Phone: 03-21-2019 09:47-0400 BP Diastolic 70 mm[Hg] Kimmie Gifford [facility] Internal Medicine Work Phone: Comment on above: Patient Position: Sitting; Cuff Location : Left Arm; Cuff Size: Standard 03-21-2019 09:47-0400 BP Systolic 115 mm[Hg] Kimmie Gifford [facility] Internal Medicine Work Phone: Comment on above: Patient Position: Sitting; Cuff Location : Left Arm; Cuff Size: Standard 03-21-2019 09:47-0400 BSA (Body Surface Area) 1.98 m2 Kimmie Gifford [facility] Internal Medicine Work Phone: 03-21-2019 09:47-0400 Height 177.8 cm Kimmie Gifford [facility] Internal Medicine Work Phone: 03-21-2019 09:47-0400 Pulse (Heart Rate) 70 /min Kimmie Gifford [facility] Internal Medicine Work Phone: Comment on above: Pattern: Regular 03-21-2019 09:47-0400 Respiratory Rate 16 /min Kimmie Gifford [facility] Internal Medicine Work Phone: Comment on above: Pattern: Unlabored 12-27-2018 09:27-0400 BMI (Body Mass Index) 25.25 kg/m2 IMTIAZ Shore [facility] Internal Medicine Work Phone: 12-27-2018 09:27-0400 Body Temperature 97.9 [degF] IMTIAZ Shore [facility] Internal Medicine Work Phone: Comment on above: Method: Temporal 12-27-2018 09:27-0400 Body weight 79.83 kg IMTIAZ Shore [facility] Internal Medicine Work Phone: 12-27-2018 09:27-0400 BP Diastolic 64 mm[Hg] IMTIAZ Shore [facility] Internal Medicine Work Phone: Comment on above: Patient Position: Sitting; Cuff Location : Left Arm; Cuff Size: Standard 12-27-2018 09:27-0400 BP Systolic 94 mm[Hg] IMTIAZ Shore [facility] Internal Medicine Work Phone: Comment on above: Patient Position: Sitting; Cuff Location : Left Arm; Cuff Size: Standard 12-27-2018 09:27-0400 BSA (Body Surface Area) 1.98 m2 IMTIAZ Shore [employer] [facility] Internal Medicine Work Phone: 12-27-2018 09:27-0400 Height 177.8 cm IMTIAZ Shore [facility] Internal Medicine Work Phone: 12-27-2018 09:27-0400 Pulse (Heart Rate) 74 /min IMTIAZ Shore LPN [facility] Internal Medicine Work Phone: Comment on above: Pattern: Regular 12-27-2018 09:27-0400 Pulse Oximetry 98 % Connie Wilson [facility] Internal Medicine Work Phone: Comment on above: Room air 12-27-2018 09:27-0400 Respiratory Rate 20 /min IMTIAZ Shore LPN [facility] Internal Medicine Work Phone: Comment on above: Pattern: Unlabored 12-27-2018 09:27-0400 SaO2% (BldA) [Mass fraction] 98 % IMTIAZ Shore LPN [facility] Internal Medicine Work Phone: Comment on above: Room air 12-14-2018 13:25-0400 BMI (Body Mass Index) 25.31 kg/m2 Kimmie Gifford [facility] Internal Medicine Work Phone: 12-14-2018 13:25-0400 Body Temperature 97.1 [degF] Kimmie Gifford [facility] Internal Medicine Work Phone: Comment on above: Method: Temporal 12-14-2018 13:25-0400 Body weight 80 kg Kimmie Gifford [facility] Internal Medicine Work Phone: 12-14-2018 13:25-0400 BP Diastolic 62 mm[Hg] [facility] Internal Medicine Work Phone: Comment on above: Patient Position: Sitting; Cuff Location : Left Arm; Cuff Size: Standard 12-14-2018 13:25-0400 BP Systolic 98 mm[Hg] Kimmie Gifford [facility] Internal Medicine Work Phone: Comment on above: Patient Position: Sitting; Cuff Location : Left Arm; Cuff Size: Standard 12-14-2018 13:25-0400 BSA (Body Surface Area) 1.98 m2 Kimmie [facility] Internal Medicine Work Phone: 12-14-2018 13:25-0400 Height 177.8 cm [facility] Work Phone: 12-14-2018 13:25-0400 Pulse (Heart Rate) 70 /min Kimmie Gifford [facility] Work Phone: Comment on above: Pattern: Regular 12-14-2018 13:25-0400 Respiratory Rate 16 /min Kimmie Gifford [facility] Internal Medicine Work Phone: Comment on above: Pattern: Unlabored 12-14-2018 13:25-0400 Weight 80 kg Connieshekhar Wilson [facility] Work Phone: 04-08-2018 10:27-0400 BMI (Body Mass Index) 25.31 kg/m2 Kimmie Gifford [facility] Internal Medicine Work Phone: 04-08-2018 10:27-0400 Body Temperature 97.8 [degF] Kimmie Gifford [facility] Internal Medicine Work Phone: Comment on above: Method: Temporal 04-08-2018 10:-0400 Body weight 80 kg Kimmie Gifford [facility] Internal Medicine Work Phone: 04-08-2018 10:27-0400 BP Diastolic 64 mm[Hg] Kimmie Gifford [facility] Internal Medicine Work Phone: Comment on above: Patient Position: Sitting; Cuff Location : Left Arm; Cuff Size: Standard 04-08-2018 10:27-0400 BP Systolic 115 mm[Hg] Kimmie Gifford [facility] Internal Medicine Work Phone: Comment on above: Patient Position: Sitting; Cuff Location : Left Arm; Cuff Size: Standard 04-08-2018 10:27-0400 BSA (Body Surface Area) 1.98 m2 Kimmie Gifford [facility] Work Phone: 04-08-2018 10:27-0400 Height 177.8 cm Kimmie Gifford [facility] Internal Medicine Work Phone: 04-08-2018 10:27-0400 Pulse (Heart Rate) 68 /min Kimmie Gifford [facility] Internal Medicine Work Phone: Comment on above: Pattern: Regular 04-08-2018 10:27-0400 Respiratory Rate 16 /min Kimmie Gifford [employer] [facility] Work Phone: Comment on above: Pattern: Unlabored 04-08-2018 10:27-0400 Weight 80 kg Netta Lawler [facility] Work Phone: 04-04-2018 10:59-0400 BMI [...] 10:59-0400 Pulse Oximetry 98 % Netta Lawler [facility] Internal Medicine Work Phone: Comment on above: Room air hearing [facility]. [facility] and had [facility] test 04-04-2018 10:59-0400 Respiratory Rate 18 /min Cookie William RN [facility] Work Phone: Comment on above: Pattern: Unlabored hearing [facility]. [facility] 04-04-2018 10:59-0400 SaO2% (BldA) [Mass fraction] 98 % Cookie William RN [facility] Work Phone: Comment on above: Room air [facility] 04-04-2018 10:59-0400 Weight 79.55 kg Netta Monaeon [facility] Internal Medicine Work Phone: Comment on above: hearing [facility]. [facility] test 06-18-2017 12:11-0500 BMI (Body Mass Index) 25.11 kg/m2 Radha Slarb [employer] [facility] Internal Medicine Work Phone: 06-18-2017 12:11-0500 Body Temperature 97.1 [degF] Radha Slarb [employer] [facility] Internal Medicine Work Phone: 06-18-2017 12:11-0500 Body weight 79.38 kg Radha Slarb [employer] [facility] Internal Medicine Work Phone: 06-18-2017 12:11-0500 BP Diastolic 72 mm[Hg] Radha Slarb [employer] [facility] Internal Medicine Work Phone: Comment on above: Patient Position: Sitting; Cuff Location : Left Arm; Cuff Size: Standard 06-18-2017 12:11-0500 BP Systolic 116 mm[Hg] Radha Slarb [employer] [facility] Internal Medicine Work Phone: Comment on above: Patient Position: Sitting; Cuff Location : Left Arm; Cuff Size: Standard 06-18-2017 12:11-0500 BSA (Body Surface Area) 1.97 m2 Radha Slarb [employer] [facility] Work Phone: 06-18-2017 12:11-0500 Height 177.8 cm Radha Torres LPN [facility] Work Phone: 06-18-2017 12:11-0500 Pulse (Heart Rate) 64 /min Radha Torres LPN [facility] Work Phone: Comment on above: Pattern: Regular 06-18-2017 12:11-0500 Pulse Oximetry 98 % Netta Lawler [facility] Internal Medicine Work Phone: Comment on above: Room air 06-18-2017 12:11-0500 Respiratory Rate 16 /min Radha Torres LPN [facility] Work Phone: Comment on above: Pattern: Unlabored 06-18-2017 12:11-0500 SaO2% (BldA) [Mass fraction] 98 % Radha Torres LPN [facility] Internal Medicine Work Phone: Comment on above: Room air 06-18-2017 12:11-0500 Weight 79.38 kg Netta Lawler [facility] Internal Medicine Work Phone: 12-25-2016 13:13-0400 BMI (Body Mass Index) 23.71 kg/m2 Ashish [facility] Work Phone: 12-25-2016 13:13-0400 BP Diastolic 60 mm[Hg] Ginotalle Arvind [facility] Work Phone: 12-25-2016 13:13-0400 BP Systolic 90 mm[Hg] Ginotalle Arvind [facility] Work Phone: 12-25-2016 13:13-0400 Height 180.34 cm Ashish Samuels [facility] Work Phone: 12-25-2016 13:13-0400 Pulse (Heart Rate) 60 /min [facility] Work Phone: 12-25-2016 13:13-0400 Respiratory Rate 16 /min Ginotalle Arvind [facility] Work Phone: 12-25-2016 13:13-0400 Weight 77.11 kg [facility]ish [facility] Work Phone: 11-24-2016 08:28-0400 BMI (Body Mass Index) 24.61 kg/m2 Radha Slarb [employer] [facility] Work Phone: 11-24-2016 08:28-0400 Body Temperature 97.6 [degF] Radha Slarb [employer] [facility] Work Phone: 11-24-2016 08:28-0400 Body weight 77.79 kg Radha Slarb [employer] [facility] Work Phone: 11-24-2016 08:28-0400 BP Diastolic 62 mm[Hg] Radha Slarb [employer] [facility] Work Phone: Comment on above: Patient Position: Sitting; Cuff Location : Left Arm; Cuff Size: Standard 11-24-2016 08:28-0400 BP Systolic 106 mm[Hg] Radha Slarb [employer] [facility] Work Phone: Comment on above: Patient Position: Sitting; Cuff Location : Left Arm; Cuff Size: Standard 11-24-2016 08:28-0400 BSA (Body Surface Area) 1.96 m2 Radha Slarb [employer] [facility] Work Phone: 11-24-2016 08:28-0400 Height 177.8 cm Radha Slarb [employer] [facility] Work Phone: 11-24-2016 08:28-0400 Pulse (Heart Rate) 81 /min Radha Slarb [employer] [facility] Work Phone: Comment on above: Pattern: Regular 11-24-2016 08:28-0400 Pulse Oximetry 96 % Netta Lawler [facility] Work Phone: Comment on above: Room air 11-24-2016 08:28-0400 Respiratory Rate 16 /min Radha Slarb [employer] [facility] Work Phone: Comment on above: Pattern: Unlabored 11-24-2016 08:28-0400 SaO2% (BldA) [Mass fraction] 96 % Radha Beltranaye REGAN [facility] Work Phone: Comment on above: Room air 11-24-2016 08:28-0400 Weight 77.79 kg Netta Lawler [facility] Work Phone: 05-27-2016 13:27-0500 BSA (Body Surface Area) 1.99 m2 Ashish Samuels [facility] Work Phone: 04-03-2016 09:11-0400 BMI (Body Mass Index) 24.39 kg/m2 Cookie William RN [facility] Work Phone: Comment on above: hearing [facility] and had a glaucoma test done 04-03-2016 09:11-0400 Body weight 77.11 kg Cookie William RN [facility] Work Phone: Comment on above: hearing [facility] and had a glaucoma test done 04-03-2016 09:11-0400 BP Diastolic 80 mm[Hg] Cookie William RN [facility] Work Phone: Comment on above: Patient Position: Sitting; Cuff Location : Left Arm; Cuff Size: Standard [facility] and had a glaucoma test done 04-03-2016 09:11-0400 BP Systolic 118 mm[Hg] Cookie William RN [facility] Work Phone: Comment on above: Patient Position: Sitting; Cuff Location : Left Arm; Cuff Size: Standard [facility] and had a glaucoma test done 04-03-2016 09:11-0400 BSA (Body Surface Area) 1.95 m2 Cookie William RN [facility] Work Phone: Comment on above: hearing [facility] and had a glaucoma test done 04-03-2016 09:11-0400 Height 177.8 cm Cookie William RN [facility] Work Phone: Comment on above: hearing [facility] and had a glaucoma test done 04-03-2016 09:11-0400 Pulse (Heart Rate) 56 /min Cookie William RN [facility] Work Phone: Comment on above: Pattern: Regular [facility] had a glaucoma test done 04-03-2016 09:11-0400 Pulse Oximetry 98 % Netta Lawler [facility] Internal Medicine Work Phone: Comment on above: [facility] and had a glaucoma test done 04-03-2016 09:11-0400 Respiratory Rate 18 /min Cookie William RN [facility] Work Phone: Comment on above: Pattern: Unlabored [facility] and had a glaucoma test done 04-03-2016 09:11-0400 SaO2% (BldA) [Mass fraction] 98 % Cookie William RN [facility] Work Phone: Comment on above: [facility] had a glaucoma test done 04-03-2016 09:11-0400 Weight 77.11 kg Netta Lawler [facility] Internal Medicine Work Phone: Comment on above: hearing [facility] and had a glaucoma test done 05-21-2014 14:00-0500 BMI (Body Mass Index) 24.54 kg/m2 Celina Balderrama RN [facility] Internal Medicine Work Phone: 05-21-2014 [...] 05-21-2014 14:00-0500 Pulse Oximetry 97 % Netta Nuris [facility] Work Phone: Comment on above: Room air 05-21-2014 14:00-0500 Respiratory Rate 16 /min Celina Balderrama RN [facility] Work Phone: Comment on above: Pattern: Unlabored 05-21-2014 14:00-0500 SaO2% (BldA) [Mass fraction] 97 % Celina Balderrama RN [facility] Work Phone: Comment on above: Room air 05-21-2014 14:00-0500 Weight 77.57 kg Netta Monaeon [facility] Work Phone: 02-20-2014 14:14-0400 BMI (Body Mass Index) 23.82 kg/m2 Jyoti Matt REGAN [facility] Work Phone: 02-20-2014 14:14-0400 Body Temperature 98 [degF] Jyoti Matt REGAN [facility] Work Phone: Comment on above: Method: Oral 02-20-2014 14:140400 Body weight 75.3 kg Jyoti Matt JASS [facility] Work Phone: 02-20-2014 14:14-0400 BP Diastolic 58 mm[Hg] Jyoti Gutierrez JASS [facility] Work Phone: Comment on above: Patient Position: Sitting; Cuff Location : Left Arm; Cuff Size: Standard 02-20-2014 14:14-0400 BP Systolic 102 mm[Hg] Jyoti Gutierrez LPN [facility] Work Phone: Comment on above: Patient Position: Sitting; Cuff Location : Left Arm; Cuff Size: Standard 02-20-2014 14:14040 BSA (Body Surface Area) 1.93 m2 Jyoti Gutierrez LPN [facility] Work Phone: 02-20-2014 14:14040 Height 177.8 cm Jyoti Gutierrez LPN [facility] Work Phone: 02-20-2014 14:14040 Pulse (Heart Rate) 57 /min Jyoti Gutierrez LPN [facility] Work Phone: Comment on above: Pattern: Regular 02-20-2014 14:140400 Pulse Oximetry 98 % Netta Lawler [facility] Work Phone: Comment on above: Room air 02-20-2014 14:140400 Respiratory Rate 16 /min Jyoti Gutierrez LPN [facility] Work Phone: 02-20-2014 14:140400 SaO2% (BldA) [Mass fraction] 98 % Jyoti Gutierrez LPN [facility] Work Phone: Comment on above: Room air 02-20-2014 14:14040 Weight 75.3 kg Netta Lawler [facility] Work Phone: 02-12-2014 11:41-0400 BMI [...] 11:41-0400 Pulse Oximetry 99 % Netta Lawler [facility] Work Phone: Comment on above: Room air 02-12-2014 11:41-0400 Respiratory Rate 16 /min Jyoti Gutierrez LPN [facility] Work Phone: 02-12-2014 11:41-0400 SaO2% (BldA) [Mass fraction] 99 % Jyoti Gutierrez LPN [facility] Work Phone: Comment on above: Room air 02-12-2014 11:41-0400 Weight 75.3 kg Netta Lawler [facility] Work Phone: 11-27-2013 10:27-0400 BMI (Body Mass Index) 23.82 kg/m2 Jyoti Gutierrez LPN [facility] Work Phone: 11-27-2013 10:27-0400 Body Temperature 97.2 [degF] Jyoti Gutierrez LPN [facility] Work Phone: Comment on above: Method: Oral 11-27-2013 10:27-0400 Body weight 75.3 kg Jyoti Gutierrez LPN [facility] Work Phone: 11-27-2013 10:27-0400 BP Diastolic 74 mm[Hg] Jyoti Gutierrez LPN [facility] Work Phone: Comment on above: Patient Position: Sitting; Cuff Location : Left Arm; Cuff Size: Standard 11-27-2013 10:27-0400 BP Systolic 122 mm[Hg] Jyoti Gutierrez LPN [facility] Work Phone: Comment on above: Patient Position: Sitting; Cuff Location : Left Arm; Cuff Size: Standard 11-27-2013 10:270400 BSA (Body Surface Area) 1.93 m2 Jyoti Gutierrez LPN [facility] Work Phone: 11-27-2013 10:27-0400 Height 177.8 cm Jyoti Gutierrez LPN [facility] Work Phone: 11-27-2013 10:27-0400 Pulse (Heart Rate) 65 /min Jyoti Gutierrez LPN [facility] Work Phone: Comment on above: Pattern: Regular 11-27-2013 10:27-0400 Pulse Oximetry 99 % Netta Lawler [facility] Work Phone: Comment on above: Room air 11-27-2013 10:27-0400 Respiratory Rate 16 /min Jyoti Gutierrez LPN [facility] Work Phone: 11-27-2013 10:27-0400 SaO2% (BldA) [Mass fraction] 99 % Jyoti Gutierrez [facility] Work Phone: Comment on above: Room air 11-27-2013 10:27-0400 Weight 75.3 kg Netta Lawler [facility] Work Phone: 08-28-2013 10:26-0500 BMI (Body Mass Index) 23.82 kg/m2 Emili Reece [facility] Work Phone: 08-28-2013 10:26-0500 Body Temperature 97.8 [degF] Emili Reece [facility] Work Phone: 08-28-2013 10:26-0500 Body weight 75.3 kg Emili Reece [facility] Work Phone: 08-28-2013 10:26-0500 BP Diastolic 48 mm[Hg] Emili Jacquesashvinpriyank [facility] Work Phone: Comment on above: Patient Position: Sitting; Cuff Location : Left Arm; Cuff Size: Large 08-28-2013 10:26-0500 BP Systolic 90 mm[Hg] Emili Jacqueskorey [facility] Work Phone: Comment on above: Patient Position: Sitting; Cuff Location : Left Arm; Cuff Size: Large 08-28-2013 10:26-0500 BSA (Body Surface Area) 1.93 m2 Emili Jacqueskorey [facility] Work Phone: 08-28-2013 10:26-0500 Height 177.8 cm Emili Chevy [facility] Work Phone: 08-28-2013 10:26-0500 Pulse (Heart Rate) 52 /min Emili Reece [facility] Work Phone: Comment on above: Pattern: Regular 08-28-2013 10:26-0500 Respiratory Rate 16 /min Emili Jacqueskorey [facility] Work Phone: Comment on above: Pattern: Unlabored 08-28-2013 10:26-0500 Weight 75.3 kg Netta Lawler [facility] Work Phone: 01-02-2013 15:49-0400 BMI (Body Mass Index) 23.67 kg/m2 Jyoti Gutierrez LPN [facility] Work Phone: 01-02-2013 15:49-0400 Body Temperature 98 [degF] Jyoti Gutierrez LPN [facility] Work Phone: Comment on above: Method: Oral 01-02-2013 15:49-0400 Body weight 74.84 kg Jyoti Gutierrez LPN [facility] Work Phone: 01-02-2013 15:49-0400 BP Diastolic 70 mm[Hg] Jyoti Gutierrez LPN [facility] Work Phone: Comment on above: Patient Position: Sitting; Cuff Location : Left Arm; Cuff Size: Standard 01-02-2013 15:49-0400 BP Systolic 110 mm[Hg] Jyoti Gutierrez LPN [facility] Work Phone: Comment on above: Patient Position: Sitting; Cuff Location : Left Arm; Cuff Size: Standard 01-02-2013 15:49-0400 BSA (Body Surface Area) 1.92 m2 Jyoti Gutierrez LPN [facility] Work Phone: 01-02-2013 15:49-0400 Height 177.8 cm Jyoti Gutierrez LPN [facility] Work Phone: 01-02-2013 15:49-0400 Pulse (Heart Rate) 58 /min Jyoti Gutierrez LPN [facility] Work Phone: Comment on above: Pattern: Regular 01-02-2013 15:49-0400 Pulse Oximetry 98 % Netta Lawler [facility] Work Phone: Comment on above: Room air 01-02-2013 15:49-0400 Respiratory Rate 16 /min Jyoti Gutierrez LPN [facility] Work Phone: 01-02-2013 15:49-0400 SaO2% (BldA) [Mass fraction] 98 % Jyoti Gutierrez LPN [facility] Work Phone: Comment on above: Room air 01-02-2013 15:49-0400 Weight 74.84 kg Netta Lawler [facility] Work Phone: 12-11-2011 09:46-0400 Height 180.34 cm [facility] Work Phone: 08-04-2010 14:34-0500 Body weight 74.84 kg Cookie William RN [facility] Work Phone: 08-04-2010 14:34-0500 BP Diastolic 60 mm[Hg] Cookie William RN [facility] Work Phone: Comment on above: Patient Position: Sitting; Cuff Location : Left Arm; Cuff Size: Standard 08-04-2010 14:34-0500 BP Systolic 98 mm[Hg] Cookie William RN [facility] Work Phone: Comment on above: Patient Position: Sitting; Cuff Location : Left Arm; Cuff Size: Standard 08-04-2010 14:34-0500 Pulse (Heart Rate) 60 /min Cookie William RN [facility] Work Phone: Comment on above: Pattern: Regular 08-04-2010 14:34-0500 Respiratory Rate 16 /min Cookie William RN [facility] Work Phone: Comment on above: Pattern: Unlabored 08-04-2010 14:34-0500 Weight 74.84 kg Netta Nuris [facility] Work Phone: 05-05-2010 15:15-0500 Body Temperature 97.6 [degF] Emili Reece [facility] Work Phone: 05-05-2010 15:15-0500 Body weight 74.84 kg Emili Reece [facility] Work Phone: 05-05-2010 15:15-0500 BP Diastolic 70 mm[Hg] Emili Reece [facility] Work Phone: Comment on above: Patient Position: Sitting; Cuff Location : Left Arm; Cuff Size: Standard 05-05-2010 15:15-0500 BP Systolic 106 mm[Hg] Emili Reece [facility] Work Phone: Comment on above: Patient Position: Sitting; Cuff Location : Left Arm; Cuff Size: Standard 05-05-2010 15:15-0500 Pulse (Heart Rate) 68 /min Emili Reece [facility] Work Phone: Comment on above: Pattern: Regular 05-05-2010 15:15-0500 Respiratory Rate 18 /min Emili Reece [facility] Work Phone: Comment on above: Pattern: Unlabored 05-05-2010 15:15-0500 Weight 74.84 kg Netta Monaeon [facility] Work Phone: 09-03-2008 15:59-0400 Body Temperature 98.3 [degF] Emili Reece [facility] Work Phone: Comment on above: Method: Undefined 09-03-2008 15:59-0400 Body weight 0 kg Emili Reece [facility] Work Phone: 09-03-2008 15:59-0400 BP Diastolic 68 mm[Hg] Emili Reece [facility] Work Phone: Comment on above: Patient Position: Sitting; Cuff Location : Right Arm; Cuff Size: Large 09-03-2008 15:59-0400 BP Systolic 102 mm[Hg] Emili Reece [facility] Work Phone: Comment on above: Patient Position: Sitting; Cuff Location : Right Arm; Cuff Size: Large 09-03-2008 15:59-0400 Head Circumference 0 cm Netta Lawler [facility] Work Phone: 09-03-2008 15:59-0400 Head Occipital-frontal circumference 0 cm Emili Reece [facility] Work Phone: 09-03-2008 15:59-0400 Height 0 cm Emili Reece [facility] Work Phone: 09-03-2008 15:59-0400 Pulse (Heart Rate) 68 /min Emili Reece [facility] Work Phone: Comment on above: Pattern: Regular 09-03-2008 15:59-0400 Respiratory Rate 16 /min Emili Reece [facility] Work Phone: Comment on above: Pattern: Undefined 09-03-2008 15:59-0400 Weight 0 kg Netta Lawler [facility] Work Phone: 11-24-2007 09:26-0400 BMI (Body Mass Index) 24.72 kg/m2 Cookie William RN [facility] Work Phone: 11-24-2007 09:26-0400 Body weight 79.83 kg Cookie William RN [facility] Work Phone: 11-24-2007 09:26-0400 BP Diastolic 86 mm[Hg] Cookie William RN [facility] [...] [facility] Work Phone: 11-24-2007 09:26-0400 Head Circumference 0 cm Netta Nuris [facility] Work Phone: 11-24-2007 09:26-0400 Head Occipital-frontal circumference 0 cm Cookie William RN [facility] Work Phone: 11-24-2007 09:26-0400 Height 179.71 cm Cookie William RN [facility] Work Phone: 11-24-2007 09:26-0400 Pulse (Heart Rate) 60 /min Cookie William RN [facility] Work Phone: Comment on above: Pattern: Regular 11-24-2007 09:26-0400 Respiratory Rate 20 /min Cookie William RN [facility] Work Phone: Comment on above: Pattern: Unlabored 11-24-2007 09:26-0400 Weight 79.83 kg Netta Nuris [facility] Work Phone: 05-27-2007 07:37-0500 Body [...] 07:37-0500 BP Systolic 124 mm[Hg] IMTIAZ Shore JASS [facility] Work Phone: Comment on above: Patient Position: Sitting; Cuff Location : Left Arm; Cuff Size: Standard 05-27-2007 07:37-0500 Head Circumference 0 cm Netta Lawler [facility] Work Phone: 05-27-2007 07:37-0500 Head Occipital-frontal circumference 0 cm IMTIAZ Shore JASS [facility] Work Phone: 05-27-2007 07:37-0500 Height 0 cm IMTIAZ Shore [employer] [facility] Work Phone: 05-27-2007 07:37-0500 Pulse (Heart Rate) 70 /min IMTIAZ Shore JASS [facility] [...] 05-09-2007 08:19-0500 Head Circumference 0 cm Netta Monaeon [facility] Work Phone: 05-09-2007 08:19-0500 Head Occipital-frontal circumference 0 cm Cookie William RN [facility] Work Phone: 05-09-2007 08:19-0500 Height 179.71 cm Cookie William RN [facility] Work Phone: 05-09-2007 08:19-0500 Pulse (Heart Rate) 80 /min Cookie William RN [facility] Work Phone: Comment on above: Pattern: Regular 05-09-2007 08:19-0500 Respiratory Rate 16 /min Cookie William RN [facility] Work Phone: Comment on above: Pattern: Unlabored 05-09-2007 08:19-0500 Weight 79.83 kg Nettareyna Lawler [facility] Work Phone: 04-06-2007 10:26-0400 BMI (Body Mass Index) 24.72 kg/m2 Emili Reece [facility] Work Phone: 04-06-2007 10:26-0400 Body Temperature 99.1 [degF] [facility] Work Phone: Comment on above: Method: Oral 04-06-2007 10:26-0400 Body weight 79.83 kg [facility] Work Phone: 04-06-2007 10:26-0400 BP Diastolic 62 mm[Hg] [facility] Work Phone: Comment on above: Patient Position: Sitting; Cuff Location : Left Arm; Cuff Size: Standard 04-06-2007 10:26-0400 BP Systolic 100 mm[Hg] [facility] Work Phone: Comment on above: Patient Position: Sitting; Cuff Location : Left Arm; Cuff Size: Standard 04-06-2007 10:26-0400 BSA (Body Surface Area) 1.99 m2 Emili Reece [facility] Work Phone: 04-06-2007 10:26-0400 Head Circumference 0 cm Netta Nuris [facility] Work Phone: 04-06-2007 10:26-0400 Head Occipital-frontal circumference 0 cm Emili Reece [facility] Work Phone: 04-06-2007 10:26-0400 Height 179.71 cm Emili Reece [facility] Work Phone: 04-06-2007 10:26-0400 Pulse (Heart Rate) 68 /min Emili Reece [facility] Work Phone: Comment on above: Pattern: Regular 04-06-2007 10:26-0400 Respiratory Rate 16 /min Emili Reece [facility] Work Phone: Comment on above: Pattern: Unlabored 04-06-2007 10:26-0400 Weight 79.83 kg Netta Lawler [facility] Work Phone: 03-24-2007 11:49-0400 BMI (Body Mass Index) 24.58 kg/m2 Jyoti Gutierrez JASS [facility] Work Phone: 03-24-2007 11:49-0400 Body weight 79.38 kg Jyoti Gutierrez [employer] [facility] Work Phone: 03-24-2007 11:49-0400 BP Diastolic 64 mm[Hg] Jyoti Gutierrez [employer] [facility] Work Phone: Comment on above: Patient Position: Sitting; Cuff Location : Left Arm; Cuff Size: Standard 03-24-2007 11:49-0400 BP Systolic 102 mm[Hg] Jyoit Gutierrez [employer] [facility] Work Phone: Comment on above: Patient Position: Sitting; Cuff Location : Left Arm; Cuff Size: Standard 03-24-2007 11:49-0400 BSA (Body Surface Area) 1.99 m2 Jyoti Gutierrez [employer] [facility] Work Phone: 03-24-2007 11:49-0400 Head Circumference 0 cm Netta Lawler [facility] Work Phone: 03-24-2007 11:49-0400 Head Occipital-frontal circumference 0 cm Jyoti Gutierrez [employer] [facility] Work Phone: 03-24-2007 11:49-0400 Height 179.71 cm Jyoti Gutierrez [facility] Work Phone: 03-24-2007 11:49-0400 Pulse (Heart Rate) 66 /min Jyoti Gutierrez [employer] [facility] Work Phone: Comment on above: Pattern: Regular 03-24-2007 11:49-0400 Respiratory Rate 17 /min Jyoti Gutierrez [facility] Work Phone: Comment on above: Pattern: Unlabored 03-24-2007 11:49-0400 Weight 79.38 kg Netta Lawler [facility] Work Phone: 03-22-2007 09:11-0400 BMI (Body Mass Index) 24.58 kg/m2 Emili Chevy [facility] Work Phone: 03-22-2007 09:11-0400 Body Temperature 97.8 [degF] [facility] Work Phone: Comment on above: Method: Oral 03-22-2007 09:11-0400 Body weight 79.38 kg [facility] Work Phone: 03-22-2007 09:11-0400 BP Diastolic 60 mm[Hg] [facility] Work Phone: Comment on above: Patient Position: Sitting; Cuff Location : Left Arm; Cuff Size: Standard 03-22-2007 09:11-0400 BP Systolic 100 mm[Hg] [facility] Work Phone: Comment on above: Patient Position: Sitting; Cuff Location : Left Arm; Cuff Size: Standard 03-22-2007 09:11-0400 BSA (Body Surface Area) 1.99 m2 Emili Reece [facility] Work Phone: 03-22-2007 09:11-0400 Head Circumference 0 cm Netta Lawler [facility] Work Phone: 03-22-2007 09:11-0400 Head Occipital-frontal circumference 0 cm Emili Reece [facility] Work Phone: 03-22-2007 09:110400 Height 179.71 cm Emili Reece [facility] Work Phone: 03-22-2007 09:11-0400 Pulse (Heart Rate) 60 /min Emili Reece [facility] Work Phone: Comment on above: Pattern: Regular 03-22-2007 09:11-0400 Respiratory Rate 16 /min Emili Reece [facility] Work Phone: Comment on above: Pattern: Unlabored 03-22-2007 09:0400 Weight 79.38 kg Netta Lawler [facility] Work Phone: Encounters Encounter Date Encounter Type Care Provider Facility Start: 03-20-2025 ambulatory Vlad KAY Facility:[facility] Start: 02-21-2025 End: 02-21-[address] Connie Wilson DO Work Phone: -Pulmonary Services/Neurology Start: 02-21-2025 End: 02-21-2025 Patient encounter procedure Vlad KAY -Pulmonary Services/Neurology Work Phone: Start: 02-21-2025 End: 02-21-2025 ambulatory Vlad KAY Facility:[facility] Start: 02-14-2025 End: 02-14-2025 Patient encounter procedure Vlad KAY -[facility] Work Phone: Start: 02-14-2025 End: 02-14-[address] Connie Wilson DO Work Phone: -[facility] Start: 02-10-2025 End: 02-10-2025 Emergency department patient visit Dr. Connie Wilson DO Work Phone: -Emergency Department Work Phone: Start: 05-01-2024 End: 05-01-2024 ambulatory Connie Fast Facility:[facility] Start: 04-14-2024 ambulatory Connie Fast Facility:[facility] Start: 04-14-2024 End: 04-14-2024 ambulatory [place] Facility:[facility] Start: 04-06-2024 End: 04-06-2024 ambulatory Connie Fast Facility:[facility] Start: 03-29-2023 End: 04-01-2023 Patient encounter procedure Kimmie Chrisalex [facility] Start: 03-29-2023 Review Connie Fast DO Work Phone: [facility] Start: 03-18-2023 End: 03-17-2023 Phone Encounter Connie Fast DO Work Phone: [facility] Start: 04-06-2022 End: 04-06-2022 Patient encounter procedure Kimmie iGfford [facility] Start: 04-06-2022 Review Connie Fast DO Work Phone: [facility] Start: 03-31-2022 End: 03-30-2022 Phone Encounter Connie Fast DO Work Phone: [facility] Start: 02-25-2022 Non-patient / Non-visit Dr. Connie Wilson Work Phone: [facility] Start: 02-25-2022 End: 02-25-[address] Connie Wilson Work Phone: [facility] Work Phone: Start: 02-25-2022 End: 02-25-[address] Connie Wilson Work Phone: [facility] Start: 02-19-2022 End: 02-19-[address] Connie Wilson Work Phone: [facility] Start: 02-13-2022 Non-patient / Non-visit Dr. Connie Wilson Work Phone: [facility] Start: 02-13-2022 End: 02-13-[address] Connie Wilson Work Phone: [facility] Work Phone: Start: 02-13-2022 End: 02-13-[address] Connie Wilson Work Phone: [facility]-Cardiovascular Services Start: 07-14-2021 End: 07-14-2021 Office outpatient visit 5 minutes Connie Wilson DO Work Phone: [facility] Start: 04-17-2021 End: 04-21-2021 ambulatory [facility] Start: 04-14-2021 End: 04-18-2021 ambulatory PHYSICIAN [facility] Start: 04-10-2021 End: 04-14-2021 ambulatory PHYSICIAN [facility] Start: 04-10-2021 End: 04-10-2021 ambulatory Connie Wilson DO Work Phone: [facility] Comment on above: Left knee pain, unsp ecified chronicity Start: 04-07-2021 End: 04-11-2021 ambulatory PHYSICIAN [facility] Start: 04-04-2021 End: 04-08-2021 ambulatory CONNIE WILSON [facility] Start: 04-01-2021 End: 04-06-2022 Patient encounter procedure Connie Wilson DO Work Phone: [facility] Start: 04-01-2021 Review Connie Wilson DO Work Phone: [facility] Start: 03-31-2021 End: 04-04-2021 ambulatory [facility] Start: 03-31-2021 End: 03-31-2021 ambulatory Connie Wilson DO Work Phone: [facility] Comment on above: Left knee pain, unsp ecified chronicity Start: 03-19-2021 Transcribe Orders Connie Fowler st DO Work Phone: [facility] Comment on above: Left knee pain, unsp ecified chronicity (Primary Dx) Start: 03-11-2021 End: 03-11-2021 Office outpatient visit 15 minutes Connie Wilson DO Work Phone: [facility] [...] End: 12-16-2018 Phone Encounter Connie Fast [facility] Start: 12-14-2018 End: 04-06-2022 Patient encounter procedure Connie Fast DO Work Phone: [facility] Start: 12-14-2018 Review Connie Fast [facility] Start: 11-22-2018 End: 11-22-2018 Phone Encounter Connie Fast [facility] Start: 10-11-2018 Patient encounter procedure Connie A Fast [facility] Start: 04-08-2018 End: 04-10-2018 Office outpatient visit 25 minutes Netta Lawler [facility] Start: 04-04-2018 End: 04-04-2018 Patient encounter procedure Netta Lawler DO Work Phone: [facility] Work Phone: Start: 04-04-2018 End: 04-04-2018 Periodic preventive med est patient 65yrs& older Netta Nuris [facility] Start: 06-18-2017 End: 06-18-2017 Office outpatient visit 15 minutes Netta Nuris [facility] Start: 11-24-2016 End: 11-24-2016 Office outpatient visit 15 minutes Netta Nuris [facility] Start: 04-03-2016 End: 04-03-2016 Periodic preventive med est patient 65yrs& older Netta Nuris [facility] Start: 04-03-2016 End: 04-03-2016 Physical examination Cookie William RN [facility] Work Phone: Start: 05-21-2014 End: 05-21-2014 Office outpatient visit 15 minutes Netta Lawler [facility] Start: 02-20-2014 End: 02-20-2014 Office outpatient visit 25 minutes Netta Lawler [facility] Start: 02-12-2014 End: 02-12-2014 Office outpatient visit 25 minutes Netta Nuris [facility] Start: 11-27-2013 End: 11-27-2013 Office outpatient visit 25 minutes Netta Nuris [facility] Start: 08-28-2013 End: 08-28-2013 Patient encounter Netta Nuris [facility] Start: 08-28-2013 End: 08-28-2013 Patient encounter status Connie Wilson DO Work Phone: [facility] Start: 01-02-2013 End: 01-02-2013 Patient encounter Netta Lawler [facility] Start: 07-07-2012 End: 07-07-2012 Patient encounter Netta Nuris [facility] Start: 08-04-2010 End: 08-04-2010 Patient encounter Netta Lawler [facility] Start: 05-05-2010 End: 05-05-2010 Patient encounter Netta Lawler [facility] Start: 09-03-2008 End: 09-03-2008 Patient encounter Netta Lawler [facility] Start: 11-24-2007 End: 11-24-2007 Patient encounter Netta Lawler [facility] Start: 05-27-2007 End: 05-27-2007 Patient encounter Netta Lawler [facility] Start: 05-17-2007 End: 05-17-2007 Patient encounter Netta Lawler [facility] Start: 05-09-2007 End: 05-09-2007 Office outpatient visit 15 minutes Netta Lawler [facility] Start: 04-06-2007 End: 04-06-2007 Patient encounter Netta Lawler [facility] Start: 03-23-2007 End: 03-24-2007 Nursing evaluation of patient and report Netta Lawler [facility] Start: 03-22-2007 End: 03-23-2007 Office outpatient visit 25 minutes Netta Lawler [facility] Start: 03-18-2007 End: 03-18-2007 Historical Summary Netta Lawler [facility] Patient encounter procedure Kimmie Chrisalex [facility]; [facility] Work Phone: Physical examination Kimmie Chrisalex [facility]; [facility] Work Phone: Physical examination [facility] Work Phone: Physical examination Kimmie Manalex [facility]; [facility] Work Phone: Physical examination [facility]; [facility] Work Phone: Procedures Date Procedure Procedure Detail Performing Clinician Start: 02-10-[address] Connie Wilson DO Work Phone: Start: 03-24-2023 End: 03-24-2023 Cardiology Visit Report Procedure Note: See Note; NOTES: [facility] [place] [address] OFFICE VISIT Date of Service: 03/24/23 MR#: [id number] Acct: [id number] Name: WOODROWADRIAN ASHUTOSH Rep #: [id number] : 1950 Provider: SARAH lowery Age/Sex: 72/M Location: [facility] Status: Signed HPI HPI History of Present Illness Details: This is a 72-year-old white male who presents today for outpatient cardiovascular follow-up visit. He has a history of underlying CAD-coronary artery related vasospasm, PVCs/PVT, and syncope. He continues to spend the cul[place] in [place] in the [place] in [place]. 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 Cardiac catheterization: 08-05-12: [place], [place] DIAGNOSTIC IMPRESSIONS 1. 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 transplanted heart: [place] heart Qualified Code(s): I25.10 - Atherosclerotic heart disease of [place] coronary artery without angina pectoris Plan: Patient [...] updated, as necessary. 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 transplanted heart: [place] heart Paroxysmal ventricular tachycardia I47.2 Syncope and collapse R55 Coding Level of Care Code Off vis,est,level 4 Diagnoses Atherosclerosis of [place] coronary artery of [place] heart without angina pectoris I25.10 [place] vs. transplanted heart: [place] heart Paroxysmal ventricular tachycardia I47.2 Syncope and collapse R55 03/24/23 0920 <Electronically signed by Cookie Costa NP REPORTING ANALYST-C> Date Cookie Costa NP, NP-C Cosigner Signature: Date (if applicable) CC: Dr. Connie Wilson, DO Connie Wilson DO Work Phone: Start: 02-25-2022 End: 02-25-[address] Procedure Note: See Note; NOTES: [facility] [address] [place] [address] 02/25/22 1723 MR#: [id number] Acct: [id number] Name: ADRIAN TROY Rep #: [id number] : 1950 71 From: Michael Hdz MD [...] Cardiac Only Procedure Note: See Note; NOTES: [facility] [address] [place] [address] Cardiac Only MR#: [id number] Acct: [id number] Name: ADRIAN TROY Rep #: [id number] : 1950 M 71 From: Adrien eaton MD PCP: Dr. Connie Wilson DO Status: [facility] Study: Limited Chest CT Cardiac Only Date of Exam: Exam# [id number] Ordering Dr: Michael Hdz MD STUDY: CT [...] Signed: Adrien Garrett MD at 9:53 EDT Reading Location ID and State: [address] [place] [address] , Service support , CC: Dr. Connie Wilson DO; Dr. Michael Hdz MD Marketing Information Manager: Signed Connie Wilson DO Work Phone: Start: 02-19-2022 End: 02-19-2022 12 Lead EKG performed by BMS Procedure Note: See Note; NOTES: [facility] [address] [place] [address] 12 Lead EKG performed by BMS 02/19/22 1040 MR#: [id number] Acct: [id number] Name: ADRIAN TROY Rep #: [id number] : 1950 71 From: Michael Hdz MD Attending Dr: Dr. Michael Hdz MD Status: DE P AMB Ordering Dr: Michael Hdz MD Date: 02/19/22 Location: [facility] Sex: M C Admitted: BMS/12 Lead EKG performed by BMS ECG Report Interpretation Si nus Bradycardia -First degree A-V block Negative precordial T-waves. Electronically signed on 02/19/2022 at 11:01 by Michael Hdz Software Version [id number] 02/19/22 1105 Date Michael Hdz MD CC: Dr. Connie Wilson DO Date Dictated: 02/19/22 1040 Date Transcribed: 02/19/22 104 Marketing Information Manager: PM Signed Connie Wilson DO Work Phone: Start: 02-19-2022 End: 02-19-2022 Cardiology Visit Report Procedure Note: See Note; NOTES: [facility]. [address] [place] [address] OFFICE VISIT Date of Service: 02/19/22 MR#: [id number] Acct: [id number] Name: ADRIAN TROY Rep #: [id number] : 1950 Provider: Dr. Michael ibarra MD Age/Sex: 71/M Location: [facility] Status: Signed HPI HPI History of Present Illness Details: This is a 71-year-old white male who presents today for outpatient cardiovascular follow-up of his history of underlying CAD-coronary artery related vasospasm, PVCs/PVT, and syncope. He continues to spend the [place] in [place] in [place]. He states he did have an accident [...] Auscultation Intake Visit Reasons: 1 YR [facility] Technical Project Coordinator Required: No Accompanied by: Self Allergies No [...] QDAY #90 caps 02/19/22 [Rx Confirmed 02/19/22] [facility] Medical History (Updated 02/19/22 @ 10:[address] 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 Cardiac catheterization: 08-05-12: [place], [place] DIAGNOSTIC IMPRESSIONS 1. 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 transplanted heart: [place] heart Qualified Code(s): I25.10 - Atherosclerotic heart disease of [place] coronary artery without angina pectoris Plan: The [...] Today I25.10 - Atherosclerotic heart disease of [place] coronary artery without angina pectoris, I47.2 - Ventricular tachycardia, I49.3 - Ventricular premature depolarization, R07.9 - Chest pain, unspecified, R55 - Syncope and collapse CCTA W/CONT Coronary Arteries Today I25.10 - Atherosclerotic heart disease of [place] coronary artery without angina pectoris, I47.2 - [...] vis,est,level 4 Diagnoses Atherosclerotic heart disease of [place] coronary artery without angina pectoris I25.10 [place] vs. transplanted heart: [place] heart Premature ventricular contraction I49.3 Paroxysmal ventricular tachycardia I47.2 Syncope and collapse R55 Chest pain, unspecified R07.9 Coding Level of Care Code Off vis,est,level 4 Diagnoses Atherosclerotic heart disease of [place] coronary artery without angina pectoris I25.10 [place] vs. transplanted heart: [place] heart Premature ventricular contraction I49.3 Paroxysmal ventricular tachycardia I47.2 Syncope and collapse R55 Chest pain, unspecified R07.9 02/19/22 1050 <Electronically signed by Michael Hdz MD> Date Michael Hdz MD Cosigner Signature: Date (if applicable) CC: Dr. Connei Wilson, DO Connie Wilson DO Work Phone: Start: 02-13-2022 End: 02-13-2022 Stress Report Procedure Note: See Note; NOTES: [facility] [address] [place], [place] [address] [address] MR#: [id number] Acct: [id number] Name: ADRIAN TROY Rep #: [id number] : 1950 71 From: Michael Hdz MD Primary Care: Dr. Connie Wilson, DO [...] of 76%. This note was generated with [employer] software. It may contain incorrect words, spelling, and punctuation that were not noted in checking the note before signing. 02/13/2235 <Electronically signed by Michael Hdz MD> Date Michael Hdz MD CC: Dr. Connie Wilson DO; Dr. Michael Hdz MD Date Dictated: 02/13/22832 Date Transcribed: 02/13/22832 Marketing Information Manager: PM Signed Connie Wilson DO Work Phone: Start: 02-13-2022 Radionuclide imaging of perfusion of myocardium under exercise stress Dr. Connie Wilson Work Phone: Start: 03-11-2021 End: 03-11-2021 Knee 4 or More Views Comments: See Note; NOTES: [facility] [address] [place] [address] Knee 4 or More Views MR#: [id number] Acct: [id number] Name: ADRIAN TROY Rep #: [id number] : 1950 M 70 From: Herbert Beebe PCP: Dr. Connie Wilson DO Status: DEP AMB Study: Knee 4 or More Views Date of Exam: 03/11/21 Exam# [id number] Ordering Dr: Connie Wilson DO STUDY: X-RAY [...] support , CC: Dr. Connie Wilson DO Marketing Information Manager: Signed Connie Wilson DO Work Phone: Start: 02-19-2021 End: 02-19-2021 Cardiology Visit Report Comments: See Note; NOTES: [facility] [address] [place] [address]. [address] [place] [address] OFFICE VISIT Date of Service: 02/19/21 MR#: [id number] Acct: [id number] Name: ADRIAN TROY Rep #: [id number] : 1950 Provider: Dr. Michael ibarra MD Age/Sex: 70/M Location: [facility] Status: Signed [facility] HPI History of Present Illness Details: This is a 70-year-old white male who presents today for outpatient cardiovascular follow-up of his history of underlying CAD-coronary artery related vasospasm, PVCs/PVT, and syncope. He continues to spend the [place] in [place] in the [place] in [place]. 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 transplanted heart: [place] heart Qualified Code(s): I25.10 - Atherosclerotic heart disease of [place] coronary artery without angina pectoris Plan - [...] vis,est,level 3 Diagnoses Atherosclerotic heart disease of [place] coronary artery without angina pectoris I25.10 [place] vs. transplanted heart: [place] heart Premature ventricular contraction I49.3 Paroxysmal ventricular tachycardia I47.2 Syncope and collapse R55 Coding Level of Care Code Off vis,est,level 3 Diagnoses Atherosclerotic heart disease of [place] coronary artery without angina pectoris I25.10 [place] vs. transplanted heart: [place] heart Premature ventricular contraction I49.3 Paroxysmal ventricular [...] an LVEF of 66%. Cardiac catheterization: 08-05-12: [place], [place] DIAGNOSTIC IMPRESSIONS 1. Coronary atherosclerotic heart [...] Chest X-Ray Pulmonary: Pulmonary Function Test 02/19/21 1257 <Electronically signed by Michael Hdz MD> Date Michael Hdz MD Cosigner Signature: Date (if applicable) CC: DO Connie Montano DO Work Phone: Start: 03-18-2020 End: 03-18-2020 Chest without Contrast Comments: See Note; NOTES: [facility] [address] [place] [address] Chest without Contrast MR#: [id number] Acct: [id number] Name: ADRIAN TROY Rep #: [id number] : 1950 M 69 From: Adrien eaton MD PCP: Dr. Connie Wilson, Status: REG CLI Study: Chest without Contrast Date of Exam: 03/18/20 Exam# [id number] Ordering Dr: Connie Wilson DO STUDY: CT [...] support , CC: Dr. Connie Wilson DO Marketing Information Manager: Signed Connie Wilson Work Phone: Start: 03-06-2020 End: 03-06-2020 Chest PA and Lateral Comments: See Note; NOTES: [facility] [address] [place] [address] Chest PA and Lateral MR#: [id number] Acct: [id number] Name: ADRIAN TROY Rep #: [id number] : 1950 M 69 From: Rajiv daugherty MD PCP: Status: DEP AMB Study: Chest PA and Lateral Date of Exam: 03/06/20 Exam# [id number] Ordering Dr: Connie Wilson DO STUDY: X-RAY [...] support , CC: Dr. Connie Wilson DO Marketing Information Manager: Signed Connie Wilson Work Phone: Start: 03-06-2020 End: 03-06-2020 Hand Min 3 Views Comments: See Note; NOTES: [facility] [address] [place] [address] Hand Min 3 Views MR#: [id number] Acct: [id number] Name: ADRIAN TROY Rep #: [id number] : 1950 M [place] From: Herbert Beebe PCP: Status: DEP AMB Study: Hand Min 3 Views Date of Exam: 03/06/20 Exam# [id number] Ordering Dr: Connie Wilson DO STUDY: X-RAY [...] support , CC: Dr. Connie Wilson DO Marketing Information Manager: Signed Connie Wilson Work Phone: Start: 02-21-2020 End: 03-08-2020 Cardiology Visit Report Comments: See Note; NOTES: [facility] [address] [place] [address]. [address] [place] [address] OFFICE VISIT Date of Service: 02/21/20 MR#: [id number] Acct: [id number] Name: ADRIAN TROY Rep #: [id number] : 1950 Provider: Dr. Michael ibarra MD Age/Sex: 69/M [place] [facility] [place]: Signed [facility] History of Present Illness Details: ADRIAN TROY, is a 69 year old who presents to the office today for a cardiovascular follow- up with a history of coronary artery disease, possible coronary artery related vasospasm, near syncope, ventricular tachycardia. He spends the [place] in [place] and the [place] in [place]. Overall he is been doing well. He denies any ongoing symptoms of classic angina pectoris at rest or with exertion. There is been no episodes of CHF or pulmonary edema. There is been no near syncope or syncope. He has not required any other cardiovascular testing. He remains very active at his [email or web address] club. 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 Atherosclerosis of [place] coronary artery of [place] heart without angina pectoris I25.10 Plan At [...] Code Off vis,est,level 3 Diagnoses Atherosclerosis of [place] coronary artery of [place] heart without angina pectoris I25.10 ?[place] vs. transplanted heart: [place] heart PVC (premature ventricular contraction) I49.3 Paroxysmal ventricular tachycardia I47.2 Syncope and collapse R55 Coding Level of Care Code Off vis,est,level 3 Diagnoses Atherosclerosis of [place] coronary artery of [place] heart without angina pectoris I25.10 ?[place] vs. transplanted heart: [place] heart PVC (premature ventricular contraction) I49.3 Paroxysmal [...] an LVEF of 66%. Cardiac catheterization: 08-05-12: [place], [place] DIAGNOSTIC IMPRESSIONS 1. Coronary atherosclerotic heart [...] Surgery Visit Report Comments: See Note; NOTES: [facility] [address] [place] [address] OFFICE VISIT Date of Service: 12/05/19 MR#: [id number] Acct: [id number] Name: ADRIAN TROY Rep #: [id number] : 1950 Provider: Dr. Shahab savage MD Age/Sex: 69/M Location: [facility] Status: Signed Intake Vital Signs 12/05/19 BMI 23.7 12/05/19 Height 5 ft 11 in 12/05/19 Weight: 175 lb 12/05/19 BMI 24.4 12/05/19 BP 98/62 12/05/19 Blood Pressure Location Rt brachial 12/05/19 Position Sitting 12/05/19 Respiration 16 12/05/19 Temp 97.5 F L 12/05/19 Temp Source Temporal Intake Visit Reasons: Hernia Technical Project Coordinator Required: No Is patient in pain?: No [...] QDAY #90 tab 12/01/19 [Rx Confirmed 12/05/19] [facility] Atherosclerotic heart disease of [place] coronary artery without angina pectoris (Chronic) Premature [...] Cardiology Visit Report Comments: See Note; NOTES: [facility]. [address] [place] [address] OFFICE VISIT Date of Service: 02/20/19 MR#: [id number] Acct: [id number] Name: ADRIAN TROY Rep #: [id number] : 1950 Provider: Michael Hdz MD Age/Sex: 68/M [place] [facility] Status: Signed [facility] History of Present Illness Details: ADRIAN TROY, is a 68 M who presents to the office today for a cardiovascular follow-up. He has a history of coronary artery disease, possible coronary artery related vasospasm, near syncope, ventricular tachycardia. He spends the [place] in [place] and the [place] in [place]. Thus far he states he has been doing well other than an episode this past July, while in [place], where he was diagnosed with acute appendicitis. [...] testing. He remains very active at his [email or web address] club. He does say all and the kayak. He is felt good doing this. Intake Vital Signs02/20/19 Height 5 ft 11 in 02/20/19 Weight: 170 lb 02/20/19 Body Mass Index (BMI) 23.7 02/20/19 Blood Pressure 110/60 Intake Visit Reasons: 1 y fu Technical Project Coordinator Required: No Accompanied by: Self Allergies No [...] PO DAILY cap 02/20/19 [History Confirmed 02/20/19] [facility] Medical History Atherosclerotic heart disease of [place] coronary artery without angina pectoris (Chronic) Premature [...] affect Assessment AND Plan 1. Atherosclerosis of [place] coronary artery of [place] heart without angina pectoris I25.10 Plan At [...] Code Off vis,est,level 3 Diagnoses Atherosclerosis of [place] coronary artery of [place] heart without angina pectoris I25.10 [place] vs. transplanted heart: [place] heart Premature ventricular beat I49.3 Paroxysmal ventricular tachycardia I47.2 Syncope and collapse R55 Coding Level of Care Code Off vis,est,level 3 Diagnoses Atherosclerosis of [place] coronary artery of [place] heart without angina pectoris I25.10 [place] vs. transplanted heart: [place] heart Premature ventricular beat I49.3 Paroxysmal ventricular [...] an LVEF of 66%. Cardiac catheterization: 08-05-12: [place], [place] DIAGNOSTIC IMPRESSIONS 1. Coronary atherosclerotic heart [...] Cardiology Visit Report Comments: See Note; NOTES: [facility] [address] [place] [address] OFFICE VISIT Date of Service: 01/07/18 MR#: [id number] Acct: [id number] Name: ADRIAN TROY Rep #: [id number] : 1950 Provider: Vlad Reyna Age/Sex: 67/M Location: [facility] Status: Signed HPI HPI Details: ADRIAN TROY is a 67 M who presents to [...] Reasons: overdue for OV to refill meds Technical Project Coordinator Required: No Is patient in pain?: No [...] PRN #25 tab 01/07/18 [Rx Confirmed 01/07/18] [facility] Medical History Atherosclerotic heart disease of [place] coronary artery without angina pectoris (Chronic) Premature [...] Info Heart catheterization in 2013 done at [facility] demonstrated borderline significant mid LAD stenosis FFR was 0.9. Normal left circumflex. Normal RCA. Assessment AND Plan 1. Atherosclerosis of [place] coronary artery of [place] heart without angina pectoris I25.10 Plan Stable, [...] Code Off vis,est,level 3 Diagnoses Atherosclerosis of [place] coronary artery of [place] heart without angina pectoris I25.10 [place] vs. transplanted heart: [place] heart Paroxysmal ventricular tachycardia I47.2 Syncope and collapse R55 Coding Level of Care Code Off vis,est,level 3 Diagnoses Atherosclerosis of [place] coronary artery of [place] heart without angina pectoris I25.10 [place] vs. transplanted heart: [place] heart Paroxysmal ventricular tachycardia I47.2 Syncope and collapse R55 01/07/18 1554 <Electronically signed by Vlad KAY> Date Vlad KAY Cosigner Signature: Date (if applicable) CC: Netta Lawler Start: 06-18-2017 End: 06-18-2017 Ribs Unil 2V No CXR Comments: See Note; NOTES: [facility] [address] [place] [address] Ribs Unil 2V No CXR MR#: [id number] Acct: [id number] Name: ADRIAN TROY Rep #: [id number] : 1950 M 66 From: Adrien Garrett MD PCP: Netta Lawler DO Status: REG CLI Study: Ribs Unil 2V No CXR Date of Exam: 06/18/17 Exam# [id number] Ordering Dr: Jo Melgar STUDY: X-RAY - [...] Adrien Garrett MD at 13:24 EST Tel [phone], Service support , CC: Jo Melgar REPORTING ANALYST; Netta Lawler DO Marketing Information Manager: Signed Jo Melgar Work Phone: Start: 12-25-2016 [...] Function Report Comp Comments: See Note; NOTES: [facility] Services/Neurology [address] [place] [address] Pulmonary Function Test (Comp) MR#: [id number] Acct: [id number] Name: ADRIAN TROY Rep #: [id number] : 1950 63 From: Salvador Greenberg MD Referring Dr: Jo Melgar Status: REG CLI Ordering Dr: Jo Melgar Date: 03/01/14 Location: [facility] Sex: M C ADDENDUM by Salvador Greenberg [...] Salvador Greenberg MD; Connie Wilson DO; JO ASHFORDTETE * Signed Date: 03/01/14 Tech.: Temp: PBar: [...] Dictated: 03/01/14 1302 Date Transcribed: 03/02/14 1306 Marketing Information Manager: TC Signed Netta Lawler Start: 03-02-2014 End: 03-02-2014 Pulmonary Function Report Comp Comments: See Note; NOTES: [facility] Services/Neurology [address] [place] [address] Pulmonary Function Test (Comp) MR#: [id number] Acct: [id number] Name: ADRIAN TROY Rep #: [id number] : 1950 63 From: Salvador Greenberg MD Referring Dr: Jo Melgar Status: REG CLI Ordering Dr: Jo Melgar Date: 03/01/14 Location: [facility] Sex: M C Date: 03/01/14 Tech.: Temp: [...] study, if this is clinically indicated. 03/02/14 6872 <Electronically signed by Salvador Greenberg MD> Date Salvador Greenberg MD CC: Jo Melgar; Salvador Greenberg MD; Connie MELGAR Date Dictated: 03/01/14 1302 Date Transcribed: 03/02/14 1306 Marketing Information Manager: TC Signed Netta Lawler Start: 02-28-2014 End: 02-28-2014 Follow Up Appt 6 months Michael Hdz MD Start: 02-28-2014 End: 02-28-2014 PFM Michael Hdz MD Start: 02-12-2014 End: 02-12-2014 Chest PA and Lateral Comments: See Note; NOTES: [facility] Imaging Services [address] [place] [address] Radiology Report MR#: [id number] Acct: [id number] Name: ADRIAN TROY Rep #: [id number] : 1950 M 63 From: Randell Cutler DO PCP: Connie Wilson DO Status: REG CLI Study: Chest PA and Lateral Date of Exam: 02/12/14 Exam# [id number] Ordering Dr: Jo Melgar STUDY: X-RAY CHEST [...] Randell Cutler DO at 17:55 EDT Tel [phone], Service support [phone], RAD/Chest PA and Lateral IMPRESSION: Probable COPD without acute pulmonary disease. Electronically Signed: Randell YanezonDO at 17:55 EDT Tel [phone], Service support [phone], CC: Jo Melgar; Connie Wilson DO Marketing Information Manager: Signed Jo Melgar Work Phone: Start: 08-23-2013 [...] REMOVED OFF BACK- PETE- 2020 Kimmie Mantawnyak TERRESTRIAL ECOLOGIST LIPOMA REMOVED OFF BACK- PETE- 2020 Kimmie Manchak TERRESTRIAL ECOLOGIST Urologist Kimmie Gifford [facility] Comment on above: Dr. jamaica Sanchez in [place], [place] Urologist Kimmie Gifford [facility] Comment on above: Dr. jamaica Sanchez in [place], [place] Urologist Kimmie Gifford [facility] Comment on above: Dr. jamaica Sanchez in [place], [place] Plan of Treatment Date Care Activity Detail Author Start: 02-10-2025 [facility] Start: 02-10-2025 [facility] Start: 03-29-2023 Immunofixj electrophoresis other fluids urine immunofixation (64432) [facility]; [facility] Work Phone: Start: 03-29-2023 Assay of nephelometry each analyte jayden Serum Free Light Chains (27108) [facility]; [facility] Work Phone: Start: 03-29-2023 Assay of gammaglobulin iga igd igg igm each IMMUNOFIXATION, SERUM (37801) [facility]; [facility] Work Phone: Start: 03-29-2023 Blood count complete auto&auto difrntl wbc CBC W/AUTO DIFF WBC (66071) [facility]; [facility] Work Phone: Start: 03-29-2023 Comprehensive metabolic panel METABOLIC PANEL, COMPREHENSIVE (96522) [facility]; [facility] Work Phone: Start: 03-29-2023 Procedure Education Eprescribed prescriptions (G8553) [facility]; [facility] Work Phone: Start: 03-18-2023 Assay of prostate specific antigen total PSA TOTAL (RFLX FREE) 560278 (78911) [facility]; [facility] Work Phone: Start: 04-06-2022 Procedure Education Eprescribed prescriptions (G8553) [facility]; [facility] Work Phone: Start: 04-06-2022 Immunofixj electrophoresis other fluids urine immunofixation (01284) [facility]; [facility] Work Phone: Start: 04-06-2022 Sedimentation rate rbc non-automated SED RATE ERYTHROCYTE (11773) [facility]; [facility] Work Phone: Start: 04-06-2022 C-reactive protein C-REACTIVE PROTEIN (40366) [facility]; [facility] Work Phone: Start: 04-06-2022 Assay of gammaglobulin iga igd igg igm each IMMUNOFIXATION, SERUM (98876) [facility]: Start: 04-06-2022 Assay of nephelometry each analyte jayden Serum Free Light Chains (56899) [facility]; [facility] Work Phone: Start: 04-06-2022 Dna antibody ekuk/double stranded dsDNA ANTIBODY by IFA, Desiree Luciliaroque, with Reflex to Titer (21092) [facility]; [facility] Work Phone: Start: 04-06-2022 Antinuclear antibodies marlyn MARLYN (ANTINUCLEAR ANTIBODY) (20540) [facility]; [facility] Work Phone: Start: 02-25-2022 Following clinical pathway protocol [facility] Work Phone: Start: 04-17-2021 End: 04-17-2021 ambulatory 04/17/2021 Treatment Rehabilitation Connie Wilson, DO [address] [place] [address] [address] [place], [place] [id number] Naveen Mayer, PT [facility] Start: 04-14-2021 End: 04-14-2021 ambulatory 04/14/2021 Treatment Rehabilitation Connie Wilson, [address] [place], [place] [id number] 977- Wilma Cooley [facility] Start: 04-10-2021 End: 04-10-2021 ambulatory 04/10/2021 Treatment Rehabilitation Connie Wilson, [address] [place], [place] [id number] Wilma Cooley [facility] Start: 04-07-2021 End: 04-07-2021 ambulatory 04/07/2021 Treatment Rehabilitation Connie Wilson, [address] [place], [place] [id number] 383- Rosa Blum, [facility] Start: 04-04-2021 End: 04-04-2021 ambulatory 04/04/2021 Treatment Rehabilitation Connie Wilson, [address] [place], [place] [id number] 438- Vlad East, [facility] Start: 04-01-2021 Procedure Education Eprescribed prescriptions (G8553) [facility]; [facility] Work Phone: Start: 04-01-2021 Dna antibody ekuk/double stranded dsDNA ANTIBODY by IFA, Desiree Cortes, with Reflex to Titer (72968) [facility]; [facility] Work Phone: Start: 04-01-2021 C-reactive protein C-REACTIVE PROTEIN (08264) [facility]; [facility] Work Phone: Start: 04-01-2021 Sedimentation rate rbc non-automated SED RATE ERYTHROCYTE (99323) [facility]; [facility] Work Phone: Start: 04-01-2021 Antinuclear antibodies marlyn MARLYN (ANTINUCLEAR ANTIBODY) (55693) [facility]; [facility] Work Phone: Start: 04-01-2021 Immunofixj electrophoresis other fluids urine immunofixation (88001) [facility]; [facility] Work Phone: Start: 04-01-2021 Assay of nephelometry each analyte jayden Serum Free Light Chains (40259) [facility]; [facility] Work Phone: Start: 04-01-2021 Assay of gammaglobulin iga igd igg igm each IMMUNOFIXATION, SERUM (53807) [facility]; [facility] Work Phone: Start: 03-31-2021 End: 03-31-2021 ambulatory 03/31/2021 Evaluation Rehabilitation Fermin, Connie Ryan DO [address] [place], [place] [id number] Naveen Mayer, PT [facility] Start: 03-11-2021 Procedure Education Eprescribed prescriptions (G8553) [facility]; [facility] Work Phone: Start: 02-26-2021 Influenza vaccination Sequential Influenza Vaccine (#1) [facility] Start: 04-19-2020 C-reactive protein C-REACTIVE PROTEIN (17781) [facility]; [facility] Work Phone: Start: 04-19-2020 CRP [Mass/Vol] C-REACTIVE PROTEIN (95253) [facility] Work Phone: Start: 04-19-2020 Sedimentation rate rbc non-automated ESR-F (SED RATE ERYTHROCYTE - MALE) (06391) [facility] Work Phone: Start: 04-19-2020 Immunofixj electrophoresis other fluids urine immunofixation (59509) [facility] Work Phone: Start: 04-19-2020 Assay of gammaglobulin iga igd igg igm each IMMUNOFIXATION, SERUM (77215) [facility] Work Phone: Start: 04-19-2020 Dna antibody ekuk/double stranded dsDNA ANTIBODY by IFA, Desiree Cortes, with Reflex to Titer (88041) [facility] Work Phone: Start: 04-19-2020 Antinuclear antibodies marlyn MARLYN (ANTINUCLEAR ANTIBODY) (90537) [facility]; [facility] Work Phone: Start: 04-19-2020 Nuclear Ab IF (S) [Titer] MARLYN (ANTINUCLEAR ANTIBODY) (37798) [facility] Work Phone: Start: 04-19-2020 Urnls dip stick/tablet reagent auto microscopy URINALYSIS, W/ MICRO (62705) [facility] Work Phone: Start: 04-19-2020 Blood count complete auto&auto difrntl wbc CBC W/AUTO DIFF WBC (45043) [facility] Work Phone: Start: 04-19-2020 Comprehensive metabolic panel METABOLIC PANEL, COMPREHENSIVE (28277) [facility] Work Phone: Start: 04-12-2020 Protein total xcpt refractometry urine UPEP (14850) [facility] Work Phone: Start: 04-12-2020 Protein electrophoretic fractj&quantj serum SPEP (64118) [facility] Work Phone: Start: 04-12-2020 Extractable nuclear antigen antibody any method Systemic Lupus Profile (46346) [facility] Work Phone: Start: 04-09-2020 Procedure Education Eprescribed prescriptions (G8553) [facility] Work Phone: Start: 04-09-2020 C-reactive protein C-Reactive Protein (34508) [facility]; [facility] Work Phone: Start: 04-09-2020 CRP [Mass/Vol] C-Reactive Protein (43622) [facility] Work Phone: Start: 04-09-2020 Rheumatoid factor quantitative RHEUMATOID FACTOR-QUANT (97981) [facility] Work Phone: Start: 04-09-2020 Antinuclear antibodies marlyn MARLYN (ANTINUCLEAR ANTIBODY) (22371) [facility]; [facility] Work Phone: Start: 04-09-2020 Nuclear Ab IF (S) [Titer] MARLYN (ANTINUCLEAR ANTIBODY) (41068) [facility] Work Phone: Start: 04-09-2020 Sedimentation rate rbc non-automated ESR-F (SED RATE ERYTHROCYTE - MALE) (76105) [facility] Work Phone: Start: 03-06-2020 Assay of testosterone free TESTOSTERONE FREE (41932) [facility] Work Phone: Start: 03-06-2020 Assay of triiodothyronine t3 free FREE TRIIDOTHYRONINE (T3) (92703) [facility] Work Phone: Start: 03-06-2020 TSH Qn TSH (THYROID STIMULATING HORMONE) (77804) [facility] Work Phone: Start: 03-06-2020 Free T4 [Mass/Vol] T4, FREE (44616) [facility] Work Phone: Start: 12-01-2019 Procedure Education Eprescribed prescriptions (G8553) [facility] Work Phone: Start: 12-01-2019 Assay of prostate specific antigen total PSA (PROSTATE SPECIFIC ANTIGEN) (13302) [facility] Work Phone: Start: 12-01-2019 Urnls dip stick/tablet reagent auto microscopy URINALYSIS, W/ MICRO (41281) [facility] Work Phone: Start: 12-01-2019 Blood count complete auto&auto difrntl wbc CBC W/AUTO DIFF WBC (64164) [facility] Work Phone: Start: 12-01-2019 Comprehensive metabolic panel METABOLIC PANEL, COMPREHENSIVE (33822) [facility] Work Phone: Start: 03-21-2019 Procedure Education Eprescribed prescriptions (G8553) [facility] Work Phone: Start: 12-27-2018 Provider Instructions for Treatment Shoulder Injection [facility] Work Phone: Start: 12-16-2018 Assay of testosterone free TESTOSTERONE FREE (84859) [facility] Work Phone: Comment on above: to have drawn in 1 week from 12/16/18 in AM to have drawn in 2 w eeks from 12/16/18 around noon Start: 12-14-2018 Assay of testosterone free TESTOSTERONE FREE (26795) [facility] Work Phone: Start: 12-14-2018 Procedure Education Eprescribed prescriptions (G8553) [facility] Work Phone: Start: 11-22-2018 Urinalysis qual/semiquant except immunoassays URINALYSIS (29292) [facility] Work Phone: Start: 11-22-2018 Blood count complete automated CBC & PLATELETS (AUTO) (45633) [facility] Work Phone: Start: 11-22-2018 Comprehensive metabolic panel METABOLIC PANEL, COMPREHENSIVE (58747) [facility] Work Phone: Start: 04-08-2018 Procedure Education Eprescribed prescriptions (G8553) [facility] Work Phone: Start: 04-04-2018 Provider Instructions for Treatment [facility] Work Phone: Start: 04-04-2018 Lipid panel LIPID PANEL (38783) [facility] Work Phone: Start: 04-04-2018 Assay of prostate specific antigen total PSA (PROSTATE SPECIFIC ANTIGEN) (V76.44) [facility] Work Phone: Start: 04-04-2018 Protein mass conc PSA (PROSTATE SPECIFIC ANTIGEN) (V76.44) [facility] Work Phone: Start: 07-14-2017 End: 07-14-2017 Appointment [facility]oint[facility] Work Phone: Start: 06-18-2017 Procedure Education Eprescribed prescriptions (G8553) [facility] Work Phone: Start: 06-18-2017 Provider Instructions for Treatment Follow up if no improvement or if symptoms worsen [facility] Work Phone: Start: 12-25-2016 End: 12-25-2016 Appointment [facility]ointment [facility] Work Phone: Start: 12-25-2016 End: 12-25-2016 Follow Up Appt 6 months Follow Up Appt 6 months [facility] Work Phone: Start: 12-25-2016 End: 12-25-2016 PFM PFM [facility] Work Phone: Start: 11-24-2016 Procedure Education Eprescribed prescriptions (G8553) [facility] Work Phone: Start: 11-24-2016 End: 12-18-2016 *Hepatic Function Panel *Hepatic Function Panel [facility] Work Phone: Start: 11-24-2016 End: 12-18-2016 Lipid panel [AGGREGATE] *Lipid Profile CC PCP [facility] Work Phone: Start: 05-27-2016 End: 05-27-2016 Follow Up Appt 6 months Follow Up Appt 6 months [facility] Work Phone: Start: 05-27-2016 End: 05-27-2016 PFM P[facility] Work Phone: Start: 04-03-2016 Patient Education Flu (Influenza) *: flu shot [facility] Work Phone: Start: 04-03-2016 Provider Instructions for Treatment [facility] Work Phone: Start: 04-03-2016 Blood occult fecal hgb deter ia qual feces 1-3 FECAL OCCULT- Tubes sent home (36955) [facility] Work Phone: Start: 10-28-2015 End: 11-27-2015 *Hepatic Function Panel *Hepatic Function Panel [facility] Work Phone: Start: 10-28-2015 End: 10-28-2015 Follow Up Appt 6 months Follow Up Appt 6 months [facility] Work Phone: Start: 10-28-2015 End: 12-18-2016 Follow Up Appt Other Follow Up Appt Other [facility] Work Phone: Start: 10-28-2015 End: 11-27-2015 Lipid panel [AGGREGATE] *Lipid Profile CC PCP [facility] Work Phone: Start: 10-28-2015 End: 10-28-2015 PFM PFM [facility] Work Phone: Start: 03-13-2015 End: 11-22-2015 *Hepatic Function Panel *Hepatic Function Panel [facility] Work Phone: Start: 03-13-2015 End: 12-18-2016 Follow Up Appt 1 year Follow Up Appt 1 year [facility] Work Phone: Start: 03-13-2015 End: 10-28-2015 Lipid panel [AGGREGATE] *Lipid Profile CC PCP [facility] Work Phone: Start: 03-13-2015 End: 12-18-2016 PFM PFM [facility] Work Phone: Start: 08-29-2014 End: 08-29-2014 Follow Up Appt 6 months Follow Up Appt 6 months [facility] Work Phone: Start: 08-29-2014 End: 08-29-2014 PFM PFM [facility] Work Phone: Start: 08-26-2014 End: 10-28-2015 *Hepatic Function Panel *Hepatic Function Panel [facility] Work Phone: Start: 08-26-2014 End: 12-18-2016 Lipid panel [AGGREGATE] *Lipid Profile CC PCP [facility] Work Phone: Start: 2014 Fall risk assessment Falls Risk Assessment [facility] Start: 2014 Pneumococcal Vaccine: Age 65+ (1 of 1 - PPSV23) Pneumococcal Vaccine: Age 65+ (1 of 1 - PPSV23) [facility] Start: 05-21-2014 Procedure Education Eprescribed prescriptions [...] 02-12-2014 Fibrin dgradj products d-dimer quantitative D-Dimer (05911) [facility] Work Phone: Comment on above: stat Start: 02-12-2014 Assay of troponin quantitative ASSAY, TROPONIN, QUANTITATIVE (aka Troponin I) (69007) [facility] Work Phone: Comment on above: stat Start: 02-12-2014 Troponin I.cardiac mass conc ASSAY, TROPONIN, QUANTITATIVE (aka Troponin I) (68103) [facility] Work Phone: Comment on above: stat Start: 02-12-2014 Creatine kinase mb fraction only CPK MB FRACTION (88670) [facility] Work Phone: Comment on above: stat Start: 02-12-2014 Myoglobin MYOGLOBIN (21176) [facility] Work Phone: Comment on above: stat Start: 02-12-2014 Myoglobin mass conc MYOGLOBIN (11348) [facility] Work Phone: Comment on above: stat Start: 11-27-2013 Provider Instructions for Treatment Follow up if no improvement or if symptoms worsen [facility] Work Phone: Start: 11-27-2013 Culture bacterial quanttative colony count urine URINE JANNY CULTURE-LELO COL COUNT (98012) [facility] Work Phone: Start: 11-27-2013 Urnls dip stick/tablet rgnt non-auto w/o micrscp Urinalysis, Office (98550) [facility] Work Phone: Start: 08-28-2013 Blood count manual cell count each CBC WITH MANUAL DIFF (23421) [facility] Work Phone: Start: 08-28-2013 Comprehensive metabolic panel METABOLIC PANEL, COMPREHENSIVE (33054) [facility] Work Phone: Start: 08-28-2013 Assay of prostate specific antigen total PSA (PROSTATE SPECIFIC ANTIGEN) (V76.44) [facility] Work Phone: Start: 08-28-2013 Protein mass conc PSA (PROSTATE SPECIFIC ANTIGEN) (V76.44) [facility] Work Phone: Start: 08-23-2013 End: 09-07-2013 *Hepatic Function Panel *Hepatic Function Panel [facility] Work Phone: Start: 08-23-2013 End: 10-28-2015 Electrocardiogram, complete EKG (In office) [facility] Work Phone: Start: 08-23-2013 End: 08-23-2013 Follow Up Appt 6 months Follow Up Appt 6 months [facility] Work Phone: Start: 08-23-2013 End: 10-28-2015 Follow Up Appt Other Follow Up Appt Other [facility] Work Phone: Start: 08-23-2013 End: 09-07-2013 Lipid panel [AGGREGATE] *Lipid Profile CC PCP [facility] Work Phone: Start: 08-23-2013 End: 08-23-2013 PFM PFM [facility] Work Phone: Start: 06-28-2013 End: 10-28-2015 *Hepatic Function Panel *Hepatic Function Panel [facility] Phone: Start: 06-28-2013 End: 10-28-2015 Lipid panel [AGGREGATE] *Lipid Profile [facility] Work Phone: Start: 01-25-2013 End: 01-25-2013 Follow Up Appt 6 months Follow Up Appt 6 months [facility] Phone: Start: 01-25-2013 End: 01-25-2013 PFM PFM [facility] Work Phone: Start: 10-18-2012 End: 10-12-2012 24 hour holter monitor 24 hour holter monitor [facility] Work Phone: Start: 08-31-2012 End: 09-01-2012 24 hour holter monitor 24 hour holter monitor [facility] Work Phone: Start: 06-16-2012 End: 06-30-2012 *Hepatic Function Panel *Hepatic Function Panel [facility] Work Phone: Start: 06-16-2012 End: 12-18-2016 Follow Up Appt 6 months Follow Up Appt 6 months [facility] Phone: Start: 06-16-2012 End: 06-30-2012 Lipid panel [AGGREGATE] *Lipid Profile [facility] Work Phone: Start: 06-16-2012 End: 06-16-2012 Stress Echocardiogram (treadmill) Stress Echocardiogram (treadmill) [facility] Phone: Start: 12-11-2011 End: 12-11-2011 Electrocardiogram, complete EKG (In office) [facility] Phone: Start: 12-11-2011 End: 12-11-2011 Follow Up Appt 6 months Follow Up Appt 6 months [facility] Phone: Start: 05-05-2010 Provider Instructions for Treatment *Antibiotic Usage Education - Male [facility] Work Phone: Start: 05-17-2007 Provider Instructions for Treatment I/D Cyst/Abscess [facility] Work Phone: Start: 1999 Administration of herpes zoster vaccine Zoster Vaccines (1 of 2) [facility] Start: 1999 Screening for malignant neoplasm of colon [facility] Start: 1967 Hepatitis C screening Hepatitis C Screening [facility] Start: 1961 COVID-19 Vaccine (1) COVID-19 Vaccine (1) [facility] Start: 1961 Depression screening using PHQ-9 (Patient Health Questionnaire 9) score [facility] Start: 1952 History and physical examination, annual for health maintenance Wellness Visit [facility] Start: 1949 Prostate specific antigen measurement PSA Level [facility] Start: 1949 Tetanus vaccination Tetanus: Every 10yrs [facility] 24 Hour ECG [facility] NM Heart Views W str ess and W radionuclide IV [facility] Patient Education [facility] Work Phone: Troponin T.cardiac [Mass/volume] in Serum or Plasma by High sensitivity method [facility] Heart [facility] Work Phone: [facility] [...] Immunization Date Immunization Notes Care Provider Fa cili 03-28-2022 COVID-Moderna (Bival ent 25 MCG/0.25 ML IM BST) Conine Fast DO Work Phone: [facility]; [facility] Work Phone: 03-28-2022 influenza, injectabl e, quadrivalent, preservative free Connie Fast DO Work Phone: [facility]; [facility] Work Phone: 01-28-2021 pneumococcal polysaccharide vaccine, 23 valent Connie Fast DO Work Phone: [facility]; [facility] Work Phone: Comment on above: Site: Left Deltoid Lot [id number] 2prefilled syringeleft JASS Mora 08-26-2020 COVID-Moderna (100 MCG/0.5 ML) Connie Fast DO Work Phone: [facility]; [facility] Work Phone: Payers Date Payer Category Payer Self-pay [id number] 2019 Unknown MMO [employer] [place] [employer] [id number] 2019-Present [phone] [address] [place] [address] [id number] 2019 Unknown [id number] 2017 Unknown [id number] 2016 Medicare [id number] 2015 Unknown [id number] 2014 Medicare MEDICARE MEDICAR E PART A & B [id number] 2014-Present [phone] CGS [id number] PART A CLAIMS [address] [address] [place] [address] [id number] 2014 Medicare [id number] 2014 Medicare [id number] 2014 Unknown [id number] 1950 Unknown [id number] 1949 Unknown [id number] 2.840.1.500281.3.579.2.903 1949 Unknown [id number] 2.840.1.697200.3.579.2.903 1949 Unknown [id number] 1949 Unknown [id number] .[id number] 1949 Unknown [id number] [id number] 1949 Unknown [id number] [id number] Unknown Unknown [id number] Unknown [facility] PACKAGE PLAN [id number] Unknown [id number] [id number] Unknown [id number] [id number] Unknown [id number] [id number] Unknown [id number] [id number] Unknown [id number] [id number] Unknown [id number] [id number] Unknown [id number] [id number] Unknown [id number] [id number] Unknown [id number] [id number] Social History Date Type Detail Facility [facility] Work Phone: Comment on above: Occasional alcohol u se 1 cola QD , heterosexua l [employer]pri[employer] Start: 02-19-2021 End: 02-19-2022 Tobacco smoking status DCIS Tobacco smoking consumption unknown [facility] Start: 1950 Sex Assigned At Not on file [facility] Exposure to SARS-CoV -2 (event) Not sure [facility] Start: 1950 Sex Assigned At Male [facility] Start: 02-10-2025 Tobacco smoking stat us DCIS Never smoked tobacco (finding) [facility] Mental Status Date Assessment Result Facility 02-10-2025 Cognitive function Level Of Cons ciousness Awake;Alert;Appropriate;Follow s Commands [facility] Work Phone: 02-25-2022 Cognitive function Voice/Name [facility] Work Phone: Clinical Notes 02-13-2021 to 02-14-2025 Note Date & Type Note Facility 02-14-2025 Evaluation note Diagnosis Onset Date Resolution Chest pain, unspecified acute A ugust 2024 1:15pm SILVA (dyspnea on exertion) acute February 14 1:15pm Hypertension inactive February 14, 2025 1:15pm New onset atrial flutter inactive February 14 1:15pm [facility] Work Phone: [phone] 924-243008-16-2025 Discharge summary [facility] Medical Records Department [address] [place] [address] Emergency Department Summary 02/10/25 MR#: [id number] Acct: [id number] Name: ADRIAN TROY Rep #:[id number] : 1950 74 From: Juan Manuel Fisher MD PCP: Dr. Connie Wilson, DO Status:REG ER Location: ED HPI History of Present Illness Chief Complaint: Syncope Detail of Chief Complaint: Near syncope with walking or going up steps Informant: patient Onset/Context/Timing Onset: Today and Yesterday Context: Sudden Onset Timing: Intermittent Quality: Occurs with activity. Location: Lightheadedness Current Severity: Gone Maximum Severity: Moderate Worsened by: Going up steps Relieved by: Remaining still Associated Symptoms Associated Symptoms: None Narrative Narrative: Patient is a 74-year-old male. He was last seen by his [employer] March. Dr. Erazo's note was reviewed. There is documentation regarding echo obtained April 2010. Stress report performed February 13, 2022. Cardiac catheterization report performed August 05, 2012. He had a coronary angiography CT performed on February 25, 2022. The coronary calcium score was reported to be 0. He apparently has a history of ventricular tachycardia. Partof his assessment and plan was to obtain an EKG which revealed a right bundle branch block. Second assessment was syncope and collapse, chronic. Patient denies chest pressure, tightness heaviness or dyspnea when he becomes lightheaded. He denies nausea, vomiting or diarrhea. He denies black or maroon- colored stools. He denies dysuria, frequency, urgency or hematuria. Denies decreased urine output. Presently patient has no symptoms. Prior similar symptoms: Yes (Based on documentation from April 06, 2024, cardiology office visit note) PFSH [facility] Medical History (Updated 02/10/25 @ 13:[address] Juan Manuel Fisher MD) GI bleed COPD (chronic obstructive pulmonary disease) BPH (benign prostatic hyperplasia) Atherosclerotic heart disease of [place] coronary artery without angina pectoris Premature ventricular contraction Syncope and collapse Nonspecific abnormal cardiovascular system function study Abnormal EKG Chest pain Hyperlipidemia Paroxysmal ventricular tachycardia Home Medications ?Medication ?Instructions ?Recorded ?Last Taken ?Type aspirin 81 mg tablet,delayed 81 mg PO QDAY 07/12/17 History release tamsulosin 0.4 mg capsule 0.4 mg PO DAILY 02/21/20 History nitroglycerin 0.4 mg sublingual 0.4 mg sublingual Q5-1 5M PRN chest 03/24/23 Unknown Rx tablet pain #25 tabs propranolol 60 mg capsule,24 60 mg PO QDAY #90 caps 02/09/25 Rx hr,extended release (Inderal LA) apixaban 5 mg tablet (Eliquis) 5 mg PO BID #60 tabs Unknown Rx glucosamine sulfate 500 mg tablet 500 mg PO DAILY 01/2602/09/25 History (Glucosamine) Allergy/AdvReac Type Severity Reaction Status Date / Time No Known Allergies Allergy Verified 02/10/25 08:54 Family History Mother CAD (coronary artery disease) Brother CAD (coronary artery disease) Hx of CABG Sister Hypertension Surgical History S/P left inguinal hernia repair History of appendectomy History of tonsillectomy History of back surgery Social History Smoking Status: Never smoker alcohol intake: current substance use type: does not use ROS ROS ED Constitutional Constitutional ED: Denies chills, fever(s), subjective, sweats or weight loss Eyes Eyes: Denies blurry vision or change in vision Cardiovascular Cardiovascular: Reports other Details: Lightheadedness with moderate activity ; Denies chest pain, orthopnea, palpitations, paroxysmal nocturnal dyspnea or racing heartbeat Respiratory/Chest Respiratory/Chest: Denies cough, dyspnea, dyspnea on exertion, orthopnea or paroxysmal nocturnal dyspnea Gastrointestinal Gastrointestinal: Denies abdominal pain, diarrhea, melena, nausea or vomiting Genitourinary Genitourinary ED: Denies dysuria, hematuria or urinary frequency Integumentary Denies rash Neurologic Neurologic: Denies weakness Hematologic/Lymphatic Hematologic/Lymphatic: Reports systems reviewed and no addt'l complaints, exceptas documented EXAM Physical Exam Const Vital Signs: 02/10/25 08:22 02/10/25 08:52 02/10/25 10:22 Temperature 98.3 F Temperature Source Oral Pulse Rate 59 L 61 Pulse Rate [Lying] Pulse Rate [Sitting (for 1 minute prior to obtaining)] Pulse Rate [Standing (for 1 minute prior to obtaining)] Respiratory Rate 18 16 Respiratory Effort Normal Respiratory Pattern Normal Blood Pressure 142/91 H 112/72 Blood Pressure [Lying] Blood Pressure [Sitting (for 1 minute prior to obtaining)] Blood Pressure [Standing (for 1 minute prior to obtaining)] Blood Pressure Mean 108 85 Blood Pressure Mean [Lying] Blood Pressure Mean [Sitting (for 1 minute prior to obtaining)] Blood Pressure Mean [Standing (for 1 minute prior to obtaining)] Pulse Ox 98 98 Oxygen Delivery Method Room Air Room Air 02/10/25 10:29 02/10/25 12:00 Temperature Temperature Source Pulse Rate 63 Pulse Rate [Lying] 41 L Pulse Rate [Sitting (for 1 minute prior to obtaining)] 55 L Pulse Rate [Standing (for 1 minute prior to obtaining)] 59 L Respiratory Rate 14 Respiratory Effort Respiratory Pattern Blood Pressure 139/104 H Blood Pressure [Lying] 134/79 H Blood Pressure [Sitting (for 1 minute prior to obtaining)] 131/76 H Blood Pressure [Standing (for 1 minute prior to obtaining)] 126/87 H Blood Pressure Mean 115 Blood Pressure Mean [Lying] 97 Blood Pressure Mean [Sitting (for 1 minute prior to obtaining)] 94 Blood Pressure Mean [Standing (for 1 minute prior to obtaining)] 100 Pulse Ox 96 Oxygen Delivery Method Room Air Positive well nourished and well developed General Appearance ED: well developed and NAD; Negative for pallor HEENT Reports moist mucous membranes HEENT Narrative: Head is atraumatic normocephalic. Ears normal. Nares patent. Posterior pharynx is normal Eyes PERRL and EOMs intact bilaterally General Eye ED: Negative for pale conjunctiva or scleral icterus Neck no lymphadenopathy, supple and no JVD Chest Wall inspection of chest normal and palpation of chest normal Resp normal respiratory effort and clear to auscultation bilaterally Cardio regular rate, regular rhythm, S1 normal heart sound, S2 normal heart sound and no murmurs GI normal to inspection, nondistended, normoactive bowel sounds, non-tender, non- distended and no masses; Negative for hepatosplenomegaly Extremity Negative for normal to inspection Extremity Narrative: There are bruises noted anterior right and left leg. 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 General Extremety ED: Negative for edema or tenderness General Extremity: Negative for edema Neuro oriented x3 and CN's II-XII intact bilaterally Sensorium / Orientation: alert Psych mental status grossly normal Skin no rashes or lesions noted, no wounds and skin turgor normal General Skin Exam: Negative for jaundice or pallor MDM MDM MDM Narrative Medical decision making narrative: Monitor reveals atrial flutter with variable block rate of approximately 60. Will obtain EKG to seeif there is any ischemic changes or any ectopy as well. Based on cardiology note there is no history of atrial fibrillation. Patient ispresently on a baby aspirin. He is on no anticoagulant. Since this is new and not a chronic issue we will add on a TSH and troponin level. Patient was unaware that he was in atrial fibrillation. He is not a candidate for cardioversion. His rate is controlled. History & Record Review Additional record(s) reviewed:: Prior outpatient record and Prior labs Lab Data Attestation: I reviewed the patient's lab results. Lab results narrative: CBC is unremarkable. Electrolyte panel is unremarkable. BUN slightly elevated with BUN/creatinine ratio of approximately 23-1. TSH normal. Troponin is normal. Labs: Laboratory Results - last 24 hr 02/10/25 02/10/25 08:55 12:20 WBC 4.9 RBC 4.49 L Hgb 14.5 Hct 42.1 MCV 93.8 MCH 32.3 H MCHC 34.4 RDW Std Deviation 43.6 RDW Coeff of Michael 12.7 Plt Count 173 MPV 9.5 Sodium 137 Potassium 4.1 Chloride 104 Carbon Dioxide 25.7 Anion Gap 8 BUN 24 H Creatinine 1.08 Estim Creat Clear Calc 62.94 Est GFR (MDRD) Non-Af 72 BUN/Creatinine Ratio 22.6 H Glucose 90 Calcium 9.0 Troponin T High Sens 17 Troponin T Hi Sens 2 Hr 16 TSH 0.726 Second troponin is normal as well with a delta of -1. Plan is discharge to follow-up with Dr. Quezada new onset atrial flutter with variable block. He was placed on Eliquis. EKG Initial EKG: Attestation: I personally reviewed and interpreted this EKG as follows: Interpretation: Atrial Flutter (Rate is 54. Patient has a variable block. Anabaptist 110 ms. QT duration 452 ms. [place] is normal. There is a right bundle branch block. This is old.) Discharge Plan Triage Chief Complaint: Syncope ED Provider: Juan Manuel Fisher Dx/Rx/DC Orders Clinical Impression: New onset atrial flutter, Orthostatic lightheadedness, Hypertension, Prerenal azotemia Instructions: ED Atrial Flutter Prescriptions: New Eliquis 5 mg tablet 5 mg PO BID Qty: 60 0RF No Action aspirin 81 mg tablet,delayed release (DR/EC) 81 mg PO QDAY tamsulosin 0.4 mg capsule 0.4 mg PO DAILY nitroglycerin 0.4 mg tablet, sublingual 0.4 mg SUBLINGUAL Q5-15M PRN (Reason: chest pain) Qty: 25 3RF propranolol [Inderal LA] 60 mg capsule,extended release 24 hr 60 mg PO QDAY Qty: 90 4RF glucosamine sulfate [Glucosamine] 500 mg tablet 500 mg PO DAILY Rx Instructions: administer with a meal Primary Care Provider: Connie Wilson Referrals: Kenny Erazo MD [Med Staff - Active Staff] - As soon as possible Connie Wilson DO [Primary Care Provider] - Activity Restrictions/Additional Instructions: Call Dr. Erazo's office Wednesday. Tell the staff you were seen in the ER and need follow-up this coming week. Print Language: Georgian Disposition Disposition: Home, Self Care What to do if you have Problems For any increased pain, shortness of breath, bleeding, nausea or vomiting, chestpain, or any unexpected problems, contact your Primary Care Provider. Call [facility] ([phone]) or report tothe closest Emergency Room. Call 911 if necessary. 02/10/25 1312 Cosigner Signature (if applicable): CC: Dr. Connie Wilson DO ~ Signed [facility]10-14-2021 History of Present illness Narrative* Wilma Cooley, HOIST MECHANIC - 04/10/2021 8:30 AM EDT [facility] DAILY TREATMENT NOTE Today's Date 04/10/2021 Patient Name: Adrian Troy Date of : 1950 Current Visit #: 4 Authorized Visits: 199 Case Name: L Knee Pain History: Pre-Treatment Pain Scale: 1 Symptoms: gradually improved Functional Diagnosis: 1. Left knee pain, unspecified chronicity Clinical Information: Subjective: Pt states his knee is less painful and ambulation seems easier. Objective Included shuttle squats for LE stretngthening Treatments: Physical Therapy Exercise Log - 04/10/21 0859 OTHER Precautions/Contraindications Javier [id number] Notes Prem Mayer Vitals L knee pain, leaving May 02 for [place]. Therapeutic Exercise (38731) Intervention Quad set 3 second hold with [...] on continue Wilma Cooley PTA STATE LICENSE, [id number] documented in this [id number] History of Present illness Narrative* Naveen Mayer, PT - 03/31/2021 8:30 AM EDT Images from the original note were not included. [facility] Evaluation Today's Date 03/31/2021 Patient Name: Adrian Troy Date of : 1950 Case Name: L Knee Pain Functional Diagnosis: 1. Left knee pain, unspecified chronicity Clinical Information: Subjective History of Present Illness Subjective History: L Knee pain for a couple years now. It seemed to be really bad after completinga [employer] project. X-Ray says: floating cartilage and some [...] Treatments: Physical Therapy Exercise Log - 03/31/21 08 OTHER Notes Prem Mayer Vitals L knee pain, leaving May 02 for [place]. Therapeutic Exercise (89275) Intervention Quad set 3 second hold with [...] Written HEP provided. Clinical Impression: CPT Code 25448 Low 43336 Moderate 25123 High History 0 1-2 3+ Comorbidities: Personal factors: leaving for [place] in a month. Examination of body systems [...] Knee pain . Upon assessment, pt has beenfound with the following impairments: Strength, ROM. The [...] judgment that services are medically necessary. Naveen Mayer PT STATE LICENSE, [id number] documented in this [id number] NoteHNO ID: [id number] Author: Saray Angel PA-C Service: ? Author Type: Physician Swatcher Type: Progress Notes Filed: 02/18/2021 5:31 PM Note Text: FOLLOW UP VISIT - SKIN LESION NAME: Adrian Troy [facility] NO.: [id number] DATE OF SERVICE: 02/18/2021 : 1950 REFERRING [...] A. ?Skin, upper back, excision - Angiolipoma. MP//christian 02/17/2021 VITALS: Blood pressure 110/60, pulse 67, [...] instructed to follow-up with me as needed. ELIZA Hernandez-[facility]08-21-2021 NoteHNO ID: [id number] Author: Shahab Freeman MD Service: ? Author [...] entered by the nurse and reviewed by me Nursing Notes: Adrian Woodruff JASS 02/04/2021 10:14 AM Signed REVIEW OF SYSTEMS: [...] STUDIES: As Noted Assessment (more content not included)...[facility]08-19-2021 NoteHNO ID: [id number] Author: Shahab Freeman MD Service: ? Author [...] Sterile dressings were applied. Patient tolerated procedure well.[facility]08-19-2021 NoteHNO ID: [id number] Author: Erika Forbes RN Service: ? Author [...] Care Visit completed when applicable. [facility]rika Forbes [facility] summary Author Juan Manuel Fisher [facility] Note Date/Time February 10, 2025 1: 12pm [facility] Medical Records Department [address] [place] [address] Emergency Department Summary 02/10/25 MR#: [id number] Acct: [id number] Name: ADRIAN TROY Rep #:[id number] : 1950 74 From: Juan Manuel Fisher MD PCP: Dr. Connie Wilson, DO Status:REG ER Location: ED HPI History of Present Illness Chief Complaint: Syncope Detail of Chief Complaint: Near syncope with walking or going up steps Informant: patient Onset/Context/Timing Onset: Today and Yesterday Context: Sudden Onset Timing: Intermittent Quality: Occurs with activity. Location: Lightheadedness Current Severity: Gone Maximum Severity: Moderate Worsened by: Going up steps Relieved by: Remaining still Associated Symptoms Associated Symptoms: None Narrative Narrative: Patient is a 74-year-old male. He was last seen by his president trust [employer] March. Dr. Erazo's note was reviewed. There is documentation regarding echo obtained April 2010. Stress report performed February 13, 2022. Cardiac catheterization report performed August 05, 2012. He had a coronary angiography CT performed on February 25, 2022. The coronary calcium score was reported to be 0. He apparently has a history of ventricular tachycardia. Partof his assessment and plan was to obtain an EKG which revealed a right bundle branch block. Second assessment was syncope and collapse, chronic. Patient denies chest pressure, tightness heaviness or dyspnea when he becomes lightheaded. He denies nausea, vomiting or diarrhea. He denies black or maroon-colored stools. He denies dysuria, frequency, urgency or hematuria. Denies decreased urine output. Presently patient has no symptoms. Prior similar symptoms: Yes (Based on documentation from April 06, 2024, cardiology office visit note) [facility] Medical History (Updated 02/10/25 @ 13:[address] Juan Manuel Fisher MD) GI bleed COPD (chronic obstructive pulmonary disease) BPH (benign prostatic hyperplasia) Atherosclerotic heart disease of [place] coronary artery without angina pectoris Premature ventricular contraction Syncope and collapse Nonspecific abnormal cardiovascular system function study Abnormal EKG Chest pain Hyperlipidemia Paroxysmal ventricular tachycardia Home Medications ?Medication ?Instructions ?Recorded ?Last Taken ?Type aspirin 81 mg tablet,delayed 81 mg PO QDAY 07/12/17 History release tamsulosin 0.4 mg capsule 0.4 mg PO DAILY 02/21/20 History nitroglycerin 0.4 mg sublingual 0.4 mg sublingual Q5-1 5M PRN chest 03/24/23 Unknown Rx tablet pain #25 tabs propranolol 60 mg capsule,24 60 mg PO QDAY #90 caps 02/09/25 Rx hr,extended release (Inderal LA) apixaban 5 mg tablet (Eliquis) 5 mg PO BID #60 tabs Unknown Rx glucosamine sulfate 500 mg tablet 500 mg PO DAILY 01/2602/09/25 History (Glucosamine) Allergy/AdvReac Type Severity Reaction Status Date / Time No Known Allergies Allergy Verified 02/10/25 08:54 Family History Mother CAD (coronary artery disease) Brother CAD (coronary artery disease) Hx of CABG Sister Hypertension Surgical History S/P left inguinal hernia repair History of appendectomy History of tonsillectomy History of back surgery Social History Smoking Status: Never smoker alcohol intake: current substance use type: does not use ROS ROS ED Constitutional Constitutional ED: Denies chills, fever(s), subjective, sweats or weight loss Eyes Eyes: Denies blurry vision or change in vision Cardiovascular Cardiovascular: Reports other Details: Lightheadedness with moderate activity ; Denies chest pain, orthopnea, palpitations, paroxysmal nocturnal dyspnea or racing heartbeat Respiratory/Chest Respiratory/Chest: Denies cough, dyspnea, dyspnea on exertion, orthopnea or paroxysmal nocturnal dyspnea Gastrointestinal Gastrointestinal: Denies abdominal pain, diarrhea, melena, nausea or vomiting Genitourinary Genitourinary ED: Denies dysuria, hematuria or urinary frequency Integumentary Denies rash Neurologic Neurologic: Denies weakness Hematologic/Lymphatic Hematologic/Lymphatic: Reports systems reviewed and no addt'l complaints, exceptas documented EXAM Physical Exam Const Vital Signs: 02/10/25 08:22 02/10/25 08:52 02/10/25 10:22 Temperature 98.3 F Temperature Source Oral Pulse Rate 59 L 61 Pulse Rate [Lying] Pulse Rate [Sitting (for 1 minute prior to obtaining)] Pulse Rate [Standing (for 1 minute prior to obtaining)] Respiratory Rate 18 16 Respiratory Effort Normal Respiratory Pattern Normal Blood Pressure 142/91 H 112/72 Blood Pressure [Lying] Blood Pressure [Sitting (for 1 minute prior to obtaining)] Blood Pressure [Standing (for 1 minute prior to obtaining)] Blood Pressure Mean 108 85 Blood Pressure Mean [Lying] Blood Pressure Mean [Sitting (for 1 minute prior to obtaining)] Blood Pressure Mean [Standing (for 1 minute prior to obtaining)] Pulse Ox 98 98 Oxygen Delivery Method Room Air Room Air 02/10/25 10:29 02/10/25 12:00 Temperature Temperature Source Pulse Rate 63 Pulse Rate [Lying] 41 L Pulse Rate [Sitting (for 1 minute prior to obtaining)] 55 L Pulse Rate [Standing (for 1 minute prior to obtaining)] 59 L Respiratory Rate 14 Respiratory Effort Respiratory Pattern Blood Pressure 139/104 H Blood Pressure [Lying] 134/79 H Blood Pressure [Sitting (for 1 minute prior to obtaining)] 131/76 H Blood Pressure [Standing (for 1 minute prior to obtaining)] 126/87 H Blood Pressure Mean 115 Blood Pressure Mean [Lying] 97 Blood Pressure Mean [Sitting (for 1 minute prior to obtaining)] 94 Blood Pressure Mean [Standing (for 1 minute prior to obtaining)] 100 Pulse Ox 96 Oxygen Delivery Method Room Air Positive well nourished and well developed General Appearance ED: well developed and NAD; Negative for pallor HEENT Reports moist mucous membranes HEENT Narrative: Head is atraumatic normocephalic. Ears normal. Nares patent. Posterior pharynx is normal Eyes PERRL and EOMs intact bilaterally General Eye ED: Negative for pale conjunctiva or scleral icterus Neck no lymphadenopathy, supple and no JVD Chest Wall inspection of chest normal and palpation of chest normal Resp normal respiratory effort and clear to auscultation bilaterally Cardio regular rate, regular rhythm, S1 normal heart sound, S2 normal heart sound and no murmurs GI normal to inspection, nondistended, normoactive bowel sounds, non-tender, non-distended and no masses; Negative for hepatosplenomegaly Extremity Negative for normal to inspection Extremity Narrative: There are bruises noted anterior right and left leg. 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 General Extremety ED: Negative for edema or tenderness General Extremity: Negative for edema Neuro oriented x3 and CN's II-XII intact bilaterally Sensorium / Orientation: alert Psych mental status grossly normal Skin no rashes or lesions noted, no wounds and skin turgor normal General Skin Exam: Negative for jaundice or pallor MDM MDM MDM Narrative Medical decision making narrative: Monitor reveals atrial flutter with variable block rate of approximately 60. Will obtain EKG to see if there is any ischemic changes or any ectopy as well. Based on cardiology note there is no history of atrial fibrillation. Patient ispresently on a baby aspirin. He is on no anticoagulant. Since this is new and not a chronic issue we will add on a TSH and troponin level. Patient was unaware that he was in atrial fibrillation. He is not a candidate for cardioversion. His rate is controlled. History & Record Review Additional record(s) reviewed:: Prior outpatient record and Prior labs Lab Data Attestation: I reviewed the patient's lab results. Lab results narrative: CBC is unremarkable. Electrolyte panel is unremarkable. BUN slightly elevated with BUN/creatinine ratio of approximately 23-1. TSH normal. Troponin is normal. Labs: Laboratory Results - last 24 hr 02/10/25 02/10/25 08:55 12:20 WBC 4.9 RBC 4.49 L Hgb 14.5 Hct 42.1 MCV 93.8 MCH 32.3 H MCHC 34.4 RDW Std Deviation 43.6 RDW Coeff of Michael 12.7 Plt Count 173 MPV 9.5 Sodium 137 Potassium 4.1 Chloride 104 Carbon Dioxide 25.7 Anion Gap 8 BUN 24 H Creatinine 1.08 Estim Creat Clear Calc 62.94 Est GFR (MDRD) Non-Af 72 BUN/Creatinine Ratio 22.6 H Glucose 90 Calcium 9.0 Troponin T High Sens 17 Troponin T Hi Sens 2 Hr 16 TSH 0.726 Second troponin is normal as well with a delta of -1. Plan is discharge to follow-up with Dr. Sen for new onset atrial flutter with variable block. He was placed on Eliquis. EKG Initial EKG: Attestation: I personally reviewed and interpreted this EKG as follows: Interpretation: Atrial Flutter (Rate is 54. Patient has a variable block. Anabaptist 110 ms. QT duration 452 ms. [place] is normal. There is a right bundle branch block. This is old.) Discharge Plan Triage Chief Complaint: Syncope ED Provider: Juan Manuel Fisher Dx/Rx/DC Orders Clinical Impression: New onset atrial flutter, Orthostatic lightheadedness, Hypertension, Prerenal azotemia Instructions: ED Atrial Flutter Prescriptions: New Eliquis 5 mg tablet 5 mg PO BID Qty: 60 0RF No Action aspirin 81 mg tablet,delayed release (DR/EC) 81 mg PO QDAY tamsulosin 0.4 mg capsule 0.4 mg PO DAILY nitroglycerin 0.4 mg tablet, sublingual 0.4 mg SUBLINGUAL Q5-15M PRN (Reason: chest pain) Qty: 25 3RF propranolol [Inderal LA] 60 mg capsule,extended release 24 hr 60 mg PO QDAY Qty: 90 4RF glucosamine sulfate [Glucosamine] 500 mg tablet 500 mg PO DAILY Rx Instructions: administer with a meal Primary Care Provider: Connie Wilson Referrals: Kenny Erazo MD [Med Staff - Active Staff] - As soon as possible Connie Wilson DO [Primary Care Provider] - Activity Restrictions/Additional Instructions: Call Dr. Erazo's office Wednesday. Tell the staff you were seen in the ER and need follow-up this coming week. Print Language: Georgian Disposition Disposition: Home, Self Care What to do if you have Problems For any increased pain, shortness of breath, bleeding, nausea or vomiting, chestpain, or any unexpected problems, contact your Primary Care Provider. Call [facility] ([phone]) or report to the closest Emergency Room. Call 911 if necessary. 02/10/25 1312 <Electronically signed by Juan Manuel Fisher MD> Cosigner Signature (if applicable): CC: Dr. Connie Wilson DO ~ Signed [facility] Work Phone: Evaluation note* Diagnosis Left knee pain, unspecified chronicity- [facility] Left [facility] pain, unspecified chronicity [facility] Diagnosis Left knee pain, unspecified chronicity [facility]No assessment information availableWFlower [facility] Work Phone: Evaluation note* Diagnosis Onset Date Resolution Status Chest pain, unspecified acut e Atherosclerotic heart diseas e of [place] coronary artery without angina pectoris chronic Premature ventricular contraction chronic Syncope and collapse chronic Paroxysmal ventricular tachycardia resolved [facility] Work Phone: Evaluation note* Diagnosis Onset Date Resolution Status Admit Date Chest pain, unspecified acute A ug2024 1:15pm SILVA (dyspnea on exertion) acute February 14, 2025 1:15pm New onset atrial flutter acute February 14, 2025 1:15pm Hypertension chronic February 14, 2025 1:15pm [facility] Work Phone: Hospital Discharge instructionsAdditional Instructions Call Dr. Erazo's office Wednesday morning. Tell the staff you were seen in the ER and need follow-up this coming week.[facility] Work Phone: Instructions* Name Dates Details Patient [...] Instructions for Treatment Patient Instructions Indication:Vaccine for oncbjonepg-ptvjyuv-thnbxqfbo with poliomyelitis Start:27-Nov-2013 Instruction Type:Provider Instructions for [...] EXAM Start:06-Mar-2020 Instruction Type:Patient Education Patient Instructions Indication:[facility] WELLNESS EXAM Start:06-Mar-2020 Instruction Type:Provider Instructions for [...] How to access health informa tion online Indication:[facility] WELLNESS EXAM Start:14-Dec-2018 Instruction Type:Patient Education How to access health informa tion online - Detail Indication:[facility] WELLNESS EXAM Start:14-Dec-2018 Instruction Type:Patient Education Patient Instructions Indication:[facility] WELLNESS EXAM Start:14-Dec-2018 Instruction Type:Provider Instructions for [...] Instructions for Treatment Patient Instructions Indication:Vaccine for mkyjjtustr-aimmlfc-yvwniqyzp with poliomyelitis Start:27-Nov-2013 Instruction Type:Provider Instructions for [...] Instructions for Treatment Patient Instructions Indication:Vaccine for qsksuydhmj-rypikis-cvrvwnhyz with poliomyelitis Start:27-Nov-2013 Instruction Type:Provider Instructions for [...] Instructions for Treatment Patient Instructions Indication:Vaccine for fbixrzsepj-bjzfscv-dnmlfcrwi with poliomyelitis Start:27-Nov-2013 Instruction Type:Provider Instructions for Treatment Patient Instructions Indication:Screening for prostate cancer Start:28-Aug-2013 Instruction Type:Provider Instructions for Treatment [facility] Work Phone: Instructions* Name Dates Details Patient Instructions Indication:[facility] WELLNESS EXAM Start:01-Apr-2021 Instruction Type:Provider Instructions for Treatment How to Access Health Informa tion Online using Patient Portal and [employer] Apps Indication:[facility] WELLNESS EXAM Start:01-Apr-2021 Instruction Type:Patient Education Patient Instructions Indication:Left knee pain Start:11-Mar-2021 Instruction Type:Provider Instructions for Treatment How to Access Health Informa tion Online using Patient Portal and [employer] Apps Indication:Left knee pain Start:11-Mar-2021 Instruction Type:Patient [...] Instructions for Treatment Patient Instructions Indication:Vaccine for mrvjqezcyi-ygscjye-tafkfhezy with poliomyelitis Start:27-Nov-2013 Instruction Type:Provider Instructions for [...] Instructions for Treatment Patient Instructions Indication:Vaccine for aewonjnmcg-wvvkosp-euyvepyis with poliomyelitis Start:27-Nov-2013 Instruction Type:Provider Instructions for Treatment Patient Instructions Indication:Screening for prostate cancer Start:28-Aug-2013 Instruction Type:Provider Instructions for Treatment [facility] Work Phone: Instructions* Name Dates Details Patient Instructions Indication:BMI 24.0-24.9, adult Start:06-Apr-2022 Instruction Type:Provider Instructions for Treatment How to Access Health Informa tion Online using Patient Portal and [employer] Apps Indication:BMI 24.0-24.9, adult Start:06-Apr-2022 Instruction Type:Patient Education Patient Instructions Indication:[facility] WELLNESS EXAM Start:01-Apr-2021 Instruction Type:Provider Instructions for Treatment How to Access Health Informa tion Online using Patient Portal and [employer] Apps Indication:[facility] WELLNESS EXAM Start:01-Apr-2021 Instruction [...] access health informa tion online - Detail Indication:[facility] WELLNESS EXAM Start:14-Dec-2018 Instruction Type:Patient Education Patient [...] Instructions for Treatment Patient Instructions Indication:Vaccine for kfspiabyeu-aiywzkv-lgbzznxhn with poliomyelitis Start:27-Nov-2013 Instruction Type:Provider Instructions for [...] Instructions for Treatment Patient Instructions Indication:Vaccine for fzzbhnztuu-mutuomi-pdsgzzwym with poliomyelitis Start:27-Nov-2013 Instruction Type:Provider Instructions for [...] Instructions for Treatment Patient Instructions Indication:Vaccine for wgzxrnyhlr-cdfxynf-ghrdzkxcp with poliomyelitis Start:27-Nov-2013 Instruction Type:Provider Instructions for [...] Type:Provider Instructions for Treatment How to access [employer] tion online Indication:Asthma Start:21-May-2014 Instruction Type:Patient Education How to access health informa tion online - Detail Indication:Asthma Start:21-May-2014 Instruction Type:Patient Education Patient Instructions Indication:Asthma Start:21-May-2014 Instruction Type:Provider Instructions for Treatment Patient Instructions Indication:Vaccine for dduitsbcxh-assdpan-xrmnwllvc with poliomyelitis Start:27-Nov-2013 Instruction Type:Provider Instructions for Treatment Patient Instructions Indication:Screening for prostate cancer Start:28-Aug-2013 Instruction Type:Provider Instructions for Treatment [facility] Work Phone: reason for referral (narrative)No reason for referral information availableUniversity [facility] Work Phone: Family History No Family History [...] First Degree Relatives Comments:7 siblings- older kimberly ogdne had heart issues - sister had Chrohns [...] Status:Active First Degree Relatives Comments:7 siblings- older kmiberly ogden had heart issues - sister had [...] against influenza Asthma : How to access healt h information online Indication:Asthma Asthma : How to access healt h information online - Detail Indication:Asthma Asthma : Patient Instruction s Indication:Asthma Vaccine for diphtheria-tetan us-pertussis with poliomyelitis : Patient Instructions Indication:Vaccine for kmfxdtfloh-tqytxex-pizqpzhzp with poliomyelitis Screening for prostate cance r [...] Instructions for Treatment Patient Instructions Indication:Vaccine for qnabxhfjuc-vjekfbu-luhynmjwt with poliomyelitis Start:27-Nov-2013 Instruction Type:Provider Instructions for [...] Instructions for Treatment Patient Instructions Indication:Vaccine for purjozwsxl-loguqps-fuzgktugi with poliomyelitis Start:27-Nov-2013 Instruction Type:Provider Instructions for [...] Instructions for Treatment Patient Instructions Indication:Vaccine for uyyywczion-rsmythg-lpuqwafut with poliomyelitis Start:27-Nov-2013 Instruction Type:Provider Instructions for [...] Instructions for Treatment Patient Instructions Indication:Vaccine for ozyminlkxq-atynyyz-gxobkroiq with poliomyelitis Start:27-Nov-2013 Instruction Type:Provider Instructions for [...] Instructions for Treatment Patient Instructions Indication:Vaccine for hqbexvumtb-oqoykwx-injsirnwl with poliomyelitis Start:27-Nov-2013 Instruction Type:Provider Instructions for [...] EXAM Start:14-Dec-2018 Instruction Type:Patient Education Patient Instructions Indication:[facility]LLNESS EXAM Start:14-Dec-2018 Instruction Type:Provider Instructions for [...] Instructions for Treatment Patient Instructions Indication:Vaccine for xgpemnwouy-jyomphb-tlzizajtx with poliomyelitis Start:27-Nov-2013 Instruction Type:Provider Instructions for [...] Instructions for Treatment Patient Instructions Indication:Vaccine for znvdtdvzkn-ssztdgs-euzjazpqd with poliomyelitis Start:27-Nov-2013 Instruction Type:Provider Instructions for [...] Instructions for Treatment Patient Instructions Indication:Vaccine for biwencgknq-gftknke-byahspavd with poliomyelitis Start:27-Nov-2013 Instruction Type:Provider Instructions for [...] Instructions for Treatment Patient Instructions Indication:Vaccine for mazfjpqumj-yzcmqds-lmvqbrpsp with poliomyelitis Start:27-Nov-2013 Instruction Type:Provider Instructions for [...] Instructions for Treatment Patient Instructions Indication:Vaccine for axpkwcztot-pkpialq-aspbxomrs with poliomyelitis Start:27-Nov-2013 Instruction Type:Provider Instructions for [...] Instructions for Treatment Patient Instructions Indication:Vaccine for gqsmjhyyhh-eqzjmbn-muretvvkb with poliomyelitis Start:27-Nov-2013 Instruction Type:Provider Instructions for [...] Instructions for Treatment Patient Instructions Indication:Vaccine for utudidgmxm-bvmmmiu-ovtehwdeq with poliomyelitis Start:27-Nov-2013 Instruction Type:Provider Instructions for [...] Instructions for Treatment Patient Instructions Indication:Vaccine for mdfqhuubjg-gdrljmt-wzvbxcyqo with poliomyelitis Start:27-Nov-2013 Instruction Type:Provider Instructions for [...] Instructions for Treatment Patient Instructions Indication:Vaccine for fwplzyfzuk-irxsaxo-irhbkpatr with poliomyelitis Start:27-Nov-2013 Instruction Type:Provider Instructions for [...] EXAM Start:14-Dec-2018 Instruction Type:Patient Education Patient Instructions Indication:[facility]LL[facility] EXAM Start:14-Dec-2018 Instruction Type:Provider Instructions for [...] Instructions for Treatment Patient Instructions Indication:Vaccine for sgaasevmpa-tkzabll-rhgiggkeb with poliomyelitis Start:27-Nov-2013 Instruction Type:Provider Instructions for [...] Instructions for Treatment Patient Instructions Indication:Vaccine for mrutbqbtlm-hglbqrj-wzfxdaesu with poliomyelitis Start:27-Nov-2013 Instruction Type:Provider Instructions for [...] Instructions for Treatment Patient Instructions Indication:Vaccine for lmbkxbchml-npoufhs-ltfdywqcb with poliomyelitis Start:27-Nov-2013 Instruction Type:Provider Instructions for [...] Instructions for Treatment Patient Instructions Indication:Vaccine for wqvlnjzzag-xutgrqi-cirucrmsq with poliomyelitis Start:27-Nov-2013 Instruction Type:Provider Instructions for [...] Instructions for Treatment Patient Instructions Indication:Vaccine for pygqrickqr-shbwjpx-imlfyybrv with poliomyelitis Start:27-Nov-2013 Instruction Type:Provider Instructions for [...] Documents on File Type Date Recorded Patient [employer] Rubber Plate Expl anation Advance Directives and Livin g Will 03/19/2021 2:33 PM Name Dates Details Living Will - Effective on . Expiration date unspecified. Scanned Document is available upon request. Effective:19-Apr-2019 Immunization Registry [place] - Effective on 01/28/2021. Expiration date unspecified Effective:28-Jan-2021 Name Dates Details Living Will - Effective on . Expiration date unspecified. Scanned Document is available upon request. Effective:19-Apr-2019 Immunization Registry [place] - Effective on 01/28/2021. Expiration date unspecified Effective:28-Jan-2021 Name Dates Details Living Will - Effective on . Expiration date unspecified. Scanned Document is available upon request. Effective:19-Apr-2019 Immunization Registry [place] - Effective on 01/28/2021. Expiration date unspecified Effective:28-Jan-2021 Name Dates Details Living Will - Effective on . Expiration date unspecified. Scanned Document is available upon request. Effective:19-Apr-2019 Immunization Registry [place] - Effective on 01/28/2021. Expiration date unspecified Effective:28-Jan-2021 Name Dates Details Living Will - Effective on . Expiration date unspecified. Scanned Document is available upon request. Effective:19-Apr-2019 Immunization Registry [place] - Effective on 01/28/2021. Expiration date unspecified Effective:28-Jan-2021 Name Dates Details Living Will - Effective on . Expiration date unspecified. Scanned Document is available upon request. Effective:19-Apr-2019 Immunization Registry [place] - Effective on 01/28/2021. Expiration date unspecified Effective:28-Jan-2021 Name Dates Details Living Will - Effective on . Expiration date unspecified. Scanned Document is available upon request. Effective:19-Apr-2019 Immunization Registry [place] - Effective on 01/28/2021. Expiration date unspecified Effective:28-Jan-2021 Name Dates Details Living Will - Effective on . Expiration date unspecified. Scanned Document is available upon request. Effective:19-Apr-2019 Immunization Registry [place] - Effective on 01/28/2021. Expiration date unspecified Effective:28-Jan-2021 Name Dates Details Living Will - Effective on . Expiration date unspecified. Scanned Document is available upon request. Effective:19-Apr-2019 Immunization Registry [place] - Effective on 01/28/2021. Expiration date unspecified Effective:28-Jan-2021 Advance Directive Response Recorded Date/ Time Do you have a Healthcare Power of Typists Supervisor? Yes February 10, 2025 8:52am Reason for Referral Specialty Diagnoses / Procedures Referred By Contmarii t Referred To Contact Rehabilitation Diagnoses Left knee pain, unspecified chronicity Connie Wilson DO [address] [address] [facility] [address] [place] [phone] Referral ID Status Reason Start Date Expiration Date V isits Requested Visits Authorized [id number] Pending Review 03/19/2021 03/19/2022 1 1 Chief [...] pain, unspecif ied Atherosclerotic heart disease of [place] coronary artery without angina pectoris Premature ventricular contraction Syncope and collapse Paroxysmal ventricular tachycardia Chief Complaint Admit Date syncope February 10, 2025 8: 22am Chief Complaint Admit Date syncope February 10, 2025 8: 22am [facility] 02/10February 14, 2025 1: 15pm Reason for Visit Admit Date Chest pain, unspecified February 14 1:15pm SILVA (dyspnea on exertion) February 14 025 1:15pm New onset atrial flutter February 14 1:15pm Hypertension February 14, 2025 1: 15pm Chief Complaint Admit Date syncope February 10, 2025 8: 22am [facility] 02/10February 14, 2025 1: 15pm 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* February 21, 2025 7:53am Reason for Visit Admit Date Chest pain, unspecified February 14 1:15pm SILVA (dyspnea on exertion) February 14 025 1:15pm Hypertension February 14, 2025 1: 15pm New onset atrial flutter February 14 1:15pm Additional Source Comments (unrecognized sect ion and content) No Status Records FoundNo Status Records FoundNo Status Records FoundNo Status Records Found INFORMATION SOURCE (unrecogn ized section and content) DATE CREATED AUTHOR 10/11/2018 [facility] DATE CREATED AUTHOR AUTHOR'S ORGANIZ ATION 04/21/2021 [facility] DATE CREATED AUTHOR AUTHOR'S ORGANIZ ATION 08/01/2021 [facility] DATE CREATED AUTHOR AUTHOR'S ORGANIZ ATION 03/15/2025 [facility] Reason for Visit (unrecogniz ed section and content) Specialty Diagnoses / Procedures Referred By Lev t Referred To Contact Rehabilitation Diagnoses Left knee pain, unspecified chronicity Connie Wilson DO [address] [address] [facility] [address] [place] [address] Referral ID Status Reason Start Date Expiration Date V isits Requested Visits Authorized [id number] Authorized 03/19/2021 03/19/2022 6 199 Care Teams (unrecognized sec tion and content) 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 Connie Wilson DO Primary Care Provider Active Team Status: Inactive Member Role/Relationship Status Dates Dr. Connie Wilson DO Primary Care Provider Active Start: February 10, 2025 End: February 10, 2025 Dr. Juan Manuel Fisher MD Emergency Provider Active Sta rt: February 10, 2025 End: February 10, 2025 Team Status: Inactive Member Role/Relationship Status Dates Dr. Connie Wilson DO Primary Care Provider Active Start: February 10, 2025 End: February 10, 2025 Dr. Juan Manuel Fisher MD Attending Provider Active Sta rt: February 10, 2025 End: February 10, 2025 Dr. Juan Manuel Fisher MD Emergency Provider Active Sta rt: February 10, 2025 End: February 10, 2025 Team Status: Inactive Member Role/Relationship Status Dates Dr. Connie Wilson DO Primary Care Provider Active Start: February 14, 2025 End: February 14, 2025 Dr. Connie Wilson DO Referring Provider Active St art: February 14, 2025 End: February 14, 2025 Vlad KAY, PA Attending Provider Active Start: February 14, 2025 End: February 14, 2025 Team Status: Inactive Member Role/Relationship Status Dates Dr. Connie Wilson DO Primary Care Provider Active Start: February 21, 2025 End: February 21, 2025 Vlad KAY, PA Attending Provider Active Start: February 21, 2025 End: February 21, 2025 Vlad KAY, PA Referring Provider Active Start: February 21, 2025 End: February 21, 2025 Goals (unrecognized section and content) Goals may be documented in a n alternate sectionGoals may be documented in an alternate sectionGoals may be documented in an alternate sectionGoals may be documented in an alternate sectionGoals may be documented in an [...] BE BASED ON THE PRIMARY CLINICAL RECORDS. [facility]. provides no warranty or guarantee of the accuracy or completeness of information in this document.
--- NOTE | 2025-03-20 20:09 | STRESSREP ---
Stress Test Report Pharmacologic myocardial perfusion stress test. 74-year-old man with a history of chest pain. Resting EKG demonstrates sinus bradycardia with a rate of 50 bpm. Resting blood pressure is 130/80 mmHg. 0.4 mg of regadenoson was infused per usual protocol followed by rapid intravenous saline flush injection. Continuous EKG monitoring was performed. The maximum heart rate was 70 bpm which was 48% of max impacted heart rate the maximum workload was 1 metabolic equivalent. At rest there were no ST or T wave changes noted to suggest ischemia and at peak infusion nonspecific ST changes were noted which did not meet the criteria for ischemia. No clinical angina is noted. The final blood pressure was 114/60 mmHg. Myocardial perfusion protocol. 12 mCi of technetium 99m sestamibi was injected at rest. 0.4 mg of regadenoson was infused per usual protocol. At peak infusion 35 mCi of technetium 99m sestamibi was injected stress images were obtained stress and rest images were reconstructed and compared in the short axis vertical long and horizontal long axis. Gated images were also obtained. Perfusion SPECT analysis: Review of the stress images demonstrate normal uptake of tracer noted in all areas of the myocardium. The resting images similar demonstrated normal uptake of tracer noted in all areas of the myocardium. No areas of reversibility are noted to suggest ischemia and no previous infarct is noted. Gated SPECT analysis: The gated ejection fraction is 73%. Conclusion: Normal pharmacologic myocardial perfusion stress test. Preserved ejection fraction.
== END | disposition home or self-care (01) ==
LOC: CVS 06:47
PROVIDERS: PCP Internal Medicine; Referring Provider Physician Assistant Medical; Visit Provider Physician Assistant Medical
DX: R06.09 Other forms of dyspnea (principal); R07.9 Chest pain, unspecified
CPT/HCPCS: 78452; 93017; 93306; A9500; A4216; J2785

== ENCOUNTER → 2025-03-28 | Outpatient (CLI) | payer MEDICARE, OTHER, SELFPAY ==
--- NOTE | 2025-03-28 11:19 | NEURO ---
NCS and/or EMG Patient Report Ordering Doctor: Lori Christensen DATE OF SERVICE: 03/28/25 Adrian presents with complaints of numbness and tingling in both hands, slightly worse on the right side. Electrodiagnostic findings: Right median motor nerve demonstrates distal latency with normal amplitude and reduced conduction velocity. Left median motor nerve demonstrates prolonged latency with normal amplitude and reduced conduction velocity. Ulnar motor response on the left side's demonstrates a slightly greater than 10 m/s drop in conduction velocity across the elbow. Prolonged right median and bilateral ulnar F?waves. Prolonged median sensory latency at the wrist is noted bilaterally. Needle EMG testing was performed in the upper limbs. All muscles tested showed no evidence of denervation with normal motor unit action potentials Electrodiagnostic impression: This is an abnormal study in the upper limbs 1. Electrodiagnostic findings suggestive of bilateral median mononeuropathy. This is consistent with a mild to moderate bilateral carpal tunnel syndrome. 2. Electrodiagnostic findings suggestive of a left-sided ulnar neuropathy, consistent with a mild left cubital tunnel syndrome. 3. No electrodiagnostic evidence is noted for cervical radiculopathy. Multi Select Codes Neurology Neurology Interp Codes: 07177-49 Musc test done w/n test comp (interp) (2) and 75012-47 Nrv cndj test 9-10 studies (interp)
== END | disposition home or self-care (01) ==
PROVIDERS: PCP Internal Medicine; Referring Provider Internal Medicine; Visit Provider Internal Medicine
DX: R20.2 Paresthesia of skin (principal)
CPT/HCPCS: 95886; 95911